=== PATIENT | female | born 1980 | race African-American/Black ===

== ENCOUNTER 2016-09-12 10:20 | Emergency (ER) | payer MEDICAID, MEDICARE ==
[~2016-09-12] VITALS: Ht 180.3 cm; Wt 108.0 kg
[~2016-09-12 10:20] MED LIST: ACHD5005 PO; ALPR.25T PO; ALPR1T PO; ALPR1TAB72 PO; ALPR2TAB37 PO; AMOX500C2 PO; ARIP20TA PO; BCP; BUTA-234 PO; BUTA1CAP; CIPR500T78 PO; CLAR-19 PO; CPR500T PO; CYAN100053 IJ; DCS100C PO; DIAZ5TAB3 PO; DICY10CA26 PO; DIPH1TAB25 PO; DOXY100C2 PO; ESTR1TAB24 PO; FERR-57 PO; FESO8TAB PO; FLUC200T45 PO; FURO20TA4 PO; GBPN300C PO; HYDR-1231 PO; HYDR-2890 PO; HYDR-757 PO; HYDR1TAB PO; HYOS0.1217 PO; IBP600T1 PO; IBUP800T26 PO; IMITREX; LRT10T; METH80VI IJ; METO10TA3 PO; METR500T PO; MILN50TA6 PO; MULT-608 PO; NAPR-243 PO; NAPR1TAB21 PO; NF-ESOM40C PO; NFR150C PO; NITR-65 PO; OMEP40CA36 PO; ONDA8TAB9 PO; ONDAN4ODT PO; ONDN4T PO; ORTHO TRICYCLIN; PANT20TA PO; PARO20TA57 PO; PARO40TA2 PO; PARO40TA47 PO; PNT40TEC; POTA10CA43 PO; PREG200C PO; PREG75CA PO; PRM25T PO; PROP1TAB77 PO; PRX10T PO; SPRN25T PO; SULF1TAB23 PO; SULF1TAB38 PO; SUMA100T2 PO; TIZA4TAB55 PO; TRAM50TA2 PO; TRM50T PO; VITA100C15 PO; [UNRECOGNIZED DRUG - OTHER] PO; [UNRECOGNIZED DRUG - OTHER] PO
[2016-09-12] MEDS ORDERED: NAPR500T PO (10:58)
[2016-09-12] MEDS ORDERED: Flexeril PO (10:58)
--- NOTE | 2016-09-12 10:58 | ED Neck-Back Pain/Injury ---
General Stated Complaint: NECK PAIN/SWELLING Source of Information: Patient Exam Limitations: No Limitations History of Present Illness Time Seen by Provider: 10:55 Initial Comments Left neck pain that radiates down the left arm. She awakened this morning with this pain and denies trauma. Denies any history of this. Denies fevers or chills. She reports it to be swollen on the left side. States that she cannot take strong pain medication because of her fibromyalgia and chronic fatigue syndrome. Location: C-Spine Severity: Moderate Allergies and Home Medications Allergies Coded Allergies: meperidine (Verified Adverse Reaction, Mild, NAUSEA, 09/13/07) morphine (Verified Adverse Reaction, Mild, NAUSEA, 09/13/07) Uncoded Allergies: STEROID PILLS (Allergy, Unknown, 11/15/13) Home Medications #20 5 MG PO TID PRN PRN PAIN Prescribed by: RAFA ALVARENGA on 09/12/16 1058 Cyanocobalamin 1,000 Mcg/Ml Vial 1,000 MCG IJ WEEKLY (Reported) Furosemide 20 Mg Tablet 20 MG PO DAILY (Reported) Methylprednisolone Acetate 80 Mg/Ml Vial 160 MG IJ MONTHLY (Reported) Naproxen 500 Mg Tablet #20 500 MG PO BID PRN PRN PAIN Prescribed by: RAFA ALVARENGA on 09/12/16 1058 Potassium Chloride 10 Meq Capsule.sa 10 MEQ PO DAILY WITH FOOD (Reported) Spironolactone 25 Mg Tab 25 MG PO DAILY (Reported) Constitutional: see HPI EENTM: see HPI Respiratory: no symptoms reported Cardiovascular: no symptoms reported Genitourinary: no symptoms reported Musculoskeletal: see HPI neck pain Skin: no symptoms reported Psychiatric/Neurological: No Symptoms Reported Past Znpzarv-Jnvqtm-Tczwvm Hx Patient Social History Recent Foreign Travel: No Contact w/Someone Who Travel: No Seasonal Allergies Seasonal Allergies: Yes Surgeries HX Surgeries: Yes (TEAR REPAIR AFTER VAG , DX LAP FOR ENDOMETRIOSIS/ OVARIAN CYSTS,EGD) Surgeries: Abdominal, Appendectomy, Gallbladder, Hysterectomy, Oophorectomy Respiratory Hx Respiratory Disorders: No Cardiovascular Hx Cardiac Disorders: No Neurological Hx Neurological Disorders: Yes Neurological Disorders: Headaches /Migraines 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 System Hx 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 Disorders: Yes Sexually Transmitted Disease: No Female 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 Disorders: 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, 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 Genitourinary Hx Genitourinary Disorders: No Gastrointestinal Hx Gastrointestinal Disorders: Yes (CHRONIC NAUSEA) Gastrointestinal Disorders: Gastroesophageal Reflux, Diverticulosis Musculoskeletal Hx Musculoskeletal Disorders: Yes (CHRONIC FATIGUE SYNDROME, CHRONIC NECK PAIN AND GENERALIZED PAIN ) Musculoskeletal Disorders: Fibromyalgia, Chronic Back Pain Endocrine Hx Endocrine Disorders: Yes (STATES "HYPOGLYCEMIA") HEENT HX ENT Disorders: No Cancer Hx Cancer: No Psychosocial Hx Psychiatric Problems: Yes Behavioral Health Disorders: Anxiety, Depression Integumentary HX Skin/Integumentary Disorder: No Blood Transfusions Hx Blood Disorders: No Family Medical History Significant Family History: No Pertinent Family Hx Family Medial History: Cancer Cataract Family history: Allergy Family history: Arthritis Family history: Asthma Family history: Breast disease Family history: Diabetes mellitus Family history: Hypertension Family history: Osteoporosis Family history: Thyroid disorder Headache Heart disease Hypercholesterolemia Psychotic disorder Seizure disorder No Family History of: Abdominal aortic aneurysm [place]'s disease Alcoholism Aphasia Cancer of colon Chest pain Congenital heart disease Congestive heart failure Cystic fibrosis Dementia Dysphagia Family history: Alzheimer's disease Family history: Cardiovascular disease Family history: Coronary thrombosis Family history: Gastrointestinal disease Family history: Glaucoma Hearing loss Hereditary disease History of - anemia History of - disorder History of - respiratory disease History of drug abuse Human immunodeficiency virus (HIV) seropositivity Infertile Kidney disease Malignant neoplasm of lung Myocardial infarction Parkinson's disease Prostate cancer Stroke Tuberculosis Visual impairment Physical Exam Vital Signs Vital Sign - Last 12Hours 09/12/16 10:48 Temp 98.0 Pulse 77 Resp 18 B/P 143/95 Pulse Ox 98 Capillary Refill : General Appearance: No Apparent Distress WD/WN Other (tearful, crying) HEENT: PERRL/EOMI TMs Normal Neck: Full Range of Motion Normal Inspection Other (there is no swelling to the neck) Respiratory: No Accessory Muscle Use No Respiratory Distress Gastrointestinal: Normal Bowel Sounds Non Tender Soft Extremity: Normal Capillary Refill Normal Inspection Neurologic/Psychiatric: Alert Oriented x3 No Motor/Sensory Deficits Skin: Normal Color Warm/Dry Progress/Results/Core Measures Results/Orders My Orders Orders-RAFA ALVARENGA APRN Ketorolac Injection (Toradol Injection) (09/12/16 11:00) Orphenadrine Injection (Norflex Injectio (09/12/16 11:00) Ct Head/Cervical Spine Wo (09/12/16 11:12) Medications Given in ED Current Medications Medications Dose Ordered Sig/Cali Route Start Time Stop Time Status Last Admin Dose Admin Ketorolac Tromethamine 60 mg ONCE ONCE IM 09/12/16 11:00 09/12/16 11:01 DC 09/12/16 11:03 60 MG Orphenadrine Citrate 60 mg ONCE ONCE IM 09/12/16 11:00 09/12/16 11:01 DC 09/12/16 11:03 60 MG Vital Signs/I&O Vital Sign - Last 12Hours 09/12/16 10:48 Temp 98.0 Pulse 77 Resp 18 B/P 143/95 Pulse Ox 98 Diagnostic Imaging Diagonstic Imaging: CT Comments NAME: BALDO EDWARDS [facility] REC#: [id number] PT STATUS: REG ER : 1980 PHYSICIAN: RAFA ALVARENGA APRN ADMIT DATE: 09/12/16/ER Draft Date of Exam:09/12/16 CT HEAD/CERVICAL SPINE WO CLINICAL INDICATION: Patient woke up this morning with swelling and pain in neck and left hand numbness. EXAM: Head CT without IV contrast. Axial CT scan of the cervical spine with sagittal and coronal reformations. COMPARISON: Head CT with and without IV contrast dated 11/15/2013. CT scan of the cervical, thoracic, and lumbar spine performed with IV contrast dated 11/16/2015. FINDINGS: Head CT: There is no evidence of acute cerebral infarct, intracranial hemorrhage, or gross mass effect. There is normal dukes-white matter distinction. The brain parenchymal volume appears appropriate for patient's age. There is no significant midline shift or herniation. There is no evidence of hydrocephalus. The basal cisterns are unremarkable. The skull, extracranial soft tissue, and orbits are unremarkable. The paranasal sinuses are unremarkable. Cervical spine: There is straightening of the cervical spine posture which is nonspecific. Otherwise cervical spine is unremarkable with no acute fracture or dislocation. Is no significant central spinal canal or neural foramen narrowing. There is slight increase prominence of the soft tissue involving the posterior nasopharynx, oropharynx, supraglottic larynx, and oropharyngeal soft tissue. This has increased compared to the prior CT scan. The remainder of the neck soft tissue structures are unremarkable. IMPRESSION: 1: There is nonspecific progression of the mild prominence of the soft tissue involving the nasopharynx, oropharynx, and laryngeal soft tissue with mild narrowing of the airway. Clinical correlation for infectious or inflammatory process is suggested. 2: Unremarkable CT scan of the brain. 3: There is mild straightening of the cervical spine posture. Otherwise cervical spine is unremarkable. Dictated on workstation # [id number] Dict: 09/12/16 1146 Trans: 09/12/16 1204 [facility] [id number] Interpreted by: GALO FAROOQ MD Electronically signed by: Departure Communication Progress Notes In regards to the CT scan she does report that she's had a sore throat and runny nose for the past few days. Impression Impression: Primary Impression: Torticollis Additional Impression: chronic pain Disposition: 01 HOME, SELF-CARE Condition: Stable Departure-Patient Inst. Decision time for Depature: 10:57 Referrals: NO,LOCAL PHYSICIAN (PCP/Family) Primary Care Physician Patient Instructions: Torticollis, Adult Add. Discharge Instructions: 1. Take the medication as prescribed 2. Warm compresses to her neck 3. See your doctor later this week Scripts Amoxicillin 500 Mg [id number] Mg PO TID #21 CAP Prov:RAFA ALVARENGA APRN 09/12/16 [Flexeril] No Conflict Check5 Mg PO TID PRN PAIN #20 Prov:RAFA ALVARENGA APRN 09/12/16 Naproxen (Naprosyn)500 Mg [id number] Mg PO BID PRN PAIN #20 TAB Prov:RAFA ALVARENGA APRN 09/12/16 RAFA ALVARENGA APRN Sep 12, 2016 10:58
[2016-09-12] MEDS ORDERED: KETOROLAC 60 MG/2 ML VIAL IM ONE (11:00)
[2016-09-12] MEDS ORDERED: ORPHENADRINE 60 MG/2 ML (NORFLEX) AMP IM ONE (11:00)
--- NOTE | 2016-09-12 12:05 | Diagnostic Imaging Report ---
CLINICAL INDICATION: Patient woke up this morning with swelling and pain in neck and left hand numbness. EXAM: Head CT without IV contrast. Axial CT scan of the cervical spine with sagittal and coronal reformations. COMPARISON: Head CT with and without IV contrast dated 11/15/2013. CT scan of the cervical, thoracic, and lumbar spine performed with IV contrast dated 11/16/2015. FINDINGS: Head CT: There is no evidence of acute cerebral infarct, intracranial hemorrhage, or gross mass effect. There is normal dukes-white matter distinction. The brain parenchymal volume appears appropriate for patient's age. There is no significant midline shift or herniation. There is no evidence of hydrocephalus. The basal cisterns are unremarkable. The skull, extracranial soft tissue, and orbits are unremarkable. The paranasal sinuses are unremarkable. Cervical spine: There is straightening of the cervical spine posture which is nonspecific. Otherwise cervical spine is unremarkable with no acute fracture or dislocation. Is no significant central spinal canal or neural foramen narrowing. There is slight increase prominence of the soft tissue involving the posterior nasopharynx, oropharynx, supraglottic larynx, and oropharyngeal soft tissue. This has increased compared to the prior CT scan. The remainder of the neck soft tissue structures are unremarkable. IMPRESSION: 1: There is nonspecific progression of the mild prominence of the soft tissue involving the nasopharynx, oropharynx, and laryngeal soft tissue with mild narrowing of the airway. Clinical correlation for infectious or inflammatory process is suggested. 2: Unremarkable CT scan of the brain. 3: There is mild straightening of the cervical spine posture. Otherwise cervical spine is unremarkable. Dictated by: Dictated on workstation # [id number]
[2016-09-12] MEDS ORDERED: AMOX500C2 PO (12:10)
[2016-09-12 12:18] VITALS: BP 136/92
== END 2016-09-12 12:18 | disposition home or self-care (01) ==
LOC: EDUNIT# 10:20 → ER 10:23
DX: M43.6 Torticollis (principal); M79.7 Fibromyalgia; G89.29 Other chronic pain
CPT/HCPCS: 70450; 72125; 96372; 99282

== ENCOUNTER 2016-11-28 20:11 | Emergency (ER) | payer MEDICARE ==
[~2016-11-28] VITALS: Ht 180.3 cm; Wt 108.9 kg
[~2016-11-28 20:11] MED LIST changes: +Flexeril PO; +NAPR500T PO
[2016-11-28] MEDS ORDERED: ASPIRIN 81 MG CHEW (CHILDREN'S ASA) PO ONE (20:15)
[2016-11-28 20:27] LABS: BASOPHILS # (AUTO) 0.1 10^3/uL (0.0-0.1); BASOPHILS % (AUTO) 1 % (0-10); EOSINOPHILS # (AUTO) 0.2 10^3/uL (0.0-0.3); EOSINOPHILS % (AUTO) 2 % (0-10); LYMPHOCYTES # (AUTO) 2.9 X 10^3 (1.0-4.0); LYMPHOCYTES % (AUTO) 32 % (12-44); MEAN CORPUSCULAR HEMOGLOBIN 28 PG (25-34); MEAN CORPUSCULAR HGB CONC 34 G/DL (32-36); MEAN CORPUSCULAR VOLUME 82 FL (80-99); MEAN PLATELET VOLUME 9.9 FL (7.4-10.4); MONOCYTES # (AUTO) 0.7 X 10^3 (0.0-1.0); MONOCYTES % (AUTO) 7 % (0-12); NEUTROPHILS # (AUTO) 5.3 X 10^3 (1.8-7.8); NEUTROPHILS % (AUTO) 58 % (42-75); PLATELET COUNT 354 10^3/uL (130-400); RED BLOOD COUNT 4.73 10^6/uL (4.35-5.85); RED CELL DISTRIBUTION WIDTH 15.7 % (10.0-14.5); WHITE BLOOD COUNT 9.2 10^3/uL (4.3-11.0)
--- NOTE | 2016-11-28 20:34 | ED Chest Pain ---
General Chief Complaint: Chest Pain Stated Complaint: CP Nursing Triage Note: PT AMB TO ED C/O CP RADIATION TO RIGHT SHOULDER FOR 2 HRS. PT WHISPERS HER VOICE NEAR UNABLE TO HEAR. Nursing Sepsis Screen: No Definite Risk Source: patient Exam Limitations: no limitations History of Present Illness Time seen by provider: 20:32 Initial Comments To ER with sudden onset right sided chest pain that began 2 hours prior to arrival while sitting on her front porch. She feels very anxious. Denies any shortness of breath. Timing/Duration: 1-3 hours Severity/Quality: moderate Activities at Onset: none ASA po INVESTIGATOR FRAUD: No NTG SL INVESTIGATOR FRAUD: No Allergies and Home Medications Allergies Coded Allergies: meperidine (Verified Adverse Reaction, Mild, NAUSEA, 09/13/07) morphine (Verified Adverse Reaction, Mild, NAUSEA, 09/13/07) Uncoded Allergies: STEROID PILLS (Allergy, Unknown, 11/15/13) Home Medications Amoxicillin 500 Mg Capsule, 500 MG PO TID, #21 Prescribed by: RAFA ALVARENGA on 09/12/16 1210 Cyanocobalamin 1,000 Mcg/Ml Vial, 1,000 MCG IJ WEEKLY, (Reported) Furosemide 20 Mg Tablet, 20 MG PO DAILY, (Reported) Methylprednisolone Acetate 80 Mg/Ml Vial, 160 MG IJ MONTHLY, (Reported) Naproxen 500 Mg Tablet, 500 MG PO BID PRN for PAIN, #20 Prescribed by: RAFA ALVARENGA on 09/12/16 1058 Potassium Chloride 10 Meq Capsule.sa, 10 MEQ PO DAILY WITH FOOD, (Reported) Spironolactone 25 Mg Tab, 25 MG PO DAILY, (Reported) [Flexeril] , 5 MG PO TID PRN for PAIN, #20 Prescribed by: RAFA ALVARENGA on 09/12/16 1058 Review of Systems Constitutional: see HPI EENTM: No Symptoms Reported Respiratory: No Symptoms Reported, Denies Orthopnea, Denies Shortness of Air, Denies SOA With Exertion, Denies SOA at Rest Cardiovascular: See HPI, Chest Pain Gastrointestinal: No Symptoms Reported Genitourinary: No Symptoms Reported Musculoskeletal: no symptoms reported Skin: no symptoms reported Psychiatric/Neurological: No Symptoms Reported Endocrine: No Symptoms Reported Past Rqqmtql-Zgqwmb-Jkwdhs Hx Patient Social History Alcohol Use: Denies Use Recreational Drug Use: No Smoking Status: Current Everyday Smoker Type Used: Cigarettes Recent Foreign Travel: No Contact w/Someone Who Travel: No Recent Infectious Disease Expo: No Recent Hopitalizations: No Seasonal Allergies Seasonal Allergies: Yes Surgeries HX Surgeries: Yes (TEAR REPAIR AFTER VAG , DX LAP FOR ENDOMETRIOSIS/ OVARIAN CYSTS,EGD) Surgeries: Abdominal, Appendectomy, Gallbladder, Hysterectomy, Oophorectomy Respiratory Hx Respiratory Disorders: No Cardiovascular Hx Cardiac Disorders: No Neurological Hx Neurological Disorders: Yes (CHRONIC FATIGUE SYNDROME, FIBROMYALGIA) Neurological Disorders: Headaches /Migraines 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 System Hx 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 Disorders: Yes Sexually Transmitted Disease: No Female 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 Disorders: 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, 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 Genitourinary Hx Genitourinary Disorders: No Gastrointestinal Hx Gastrointestinal Disorders: Yes (CHRONIC NAUSEA) Gastrointestinal Disorders: Gastroesophageal Reflux, Diverticulosis Musculoskeletal Hx Musculoskeletal Disorders: Yes (CHRONIC FATIGUE SYNDROME, CHRONIC NECK PAIN AND GENERALIZED PAIN ) Musculoskeletal Disorders: Fibromyalgia, Chronic Back Pain Endocrine Hx Endocrine Disorders: Yes (STATES "HYPOGLYCEMIA") HEENT HX ENT Disorders: No Cancer Hx Cancer: No Psychosocial Hx Psychiatric Problems: Yes Behavioral Health Disorders: Anxiety, Depression Integumentary HX Skin/Integumentary Disorder: No Blood Transfusions Hx Blood Disorders: No Family Medical History Significant Family History: No Pertinent Family Hx Family Medial History: Cancer Cataract Family history: Allergy Family history: Arthritis Family history: Asthma Family history: Breast disease Family history: Diabetes mellitus Family history: Hypertension Family history: Osteoporosis Family history: Thyroid disorder Headache Heart disease Hypercholesterolemia Psychotic disorder Seizure disorder No Family History of: Abdominal aortic aneurysm [place]'s disease Alcoholism Aphasia Cancer of colon Chest pain Congenital heart disease Congestive heart failure Cystic fibrosis Dementia Dysphagia Family history: Alzheimer's disease Family history: Cardiovascular disease Family history: Coronary thrombosis Family history: Gastrointestinal disease Family history: Glaucoma Hearing loss Hereditary disease History of - anemia History of - disorder History of - respiratory disease History of drug abuse Human immunodeficiency virus (HIV) seropositivity Infertile Kidney disease Malignant neoplasm of lung Myocardial infarction Parkinson's disease Prostate cancer Stroke Tuberculosis Visual impairment Physical Exam Vital Signs Vital Sign - Last 12Hours Capillary Refill : Less Than 3 Seconds General Appearance: No Apparent Distress, WD/WN HEENT: PERRL/EOMI, TMs Normal Neck: Full Range of Motion, Normal Inspection Respiratory: Lungs Clear, Normal Breath Sounds, No Accessory Muscle Use, No Respiratory Distress Cardiovascular: Regular Rate, Rhythm, Normal Peripheral Pulses Gastrointestinal: Normal Bowel Sounds, Non Tender, Soft Extremity: Normal Capillary Refill, Normal Inspection Neurologic/Psychiatric: Alert, Oriented x3, No Motor/Sensory Deficits Skin: Normal Color, Warm/Dry Other comments Patient keeps her eyes closed during her conversation with me and speaks very softly. Progress/Results/Core Measures Results/Orders Lab Results Laboratory Tests Test 11/28/16 20:15 Range/Units White Blood Count 9.2 4.3-11.0 10^3/uL Red Blood Count 4.73 4.35-5.85 10^6/uL Hemoglobin 13.0 11.5-16.0 G/DL Hematocrit 39 35-52 % Mean Corpuscular Volume 82 80-99 FL Mean Corpuscular Hemoglobin 28 25-34 PG Mean Corpuscular Hemoglobin Concent 34 32-36 G/DL Red Cell Distribution Width 15.7 H 10.0-14.5 % Platelet Count 354 130-400 10^3/uL Mean Platelet Volume 9.9 7.4-10.4 FL Neutrophils (%) (Auto) 58 42-75 % Lymphocytes (%) (Auto) 32 12-44 % Monocytes (%) (Auto) 7 0-12 % Eosinophils (%) (Auto) 2 0-10 % Basophils (%) (Auto) 1 0-10 % Neutrophils # (Auto) 5.3 1.8-7.8 X 10^3 Lymphocytes # (Auto) 2.9 1.0-4.0 X 10^3 Monocytes # (Auto) 0.7 0.0-1.0 X 10^3 Eosinophils # (Auto) 0.2 0.0-0.3 10^3/uL Basophils # (Auto) 0.1 0.0-0.1 10^3/uL Prothrombin Time 13.2 12.2-14.7 SEC INR Comment 1.0 0.8-1.4 Activated Partial Thromboplast Time 30 24-35 SEC Sodium Level 141 135-145 MMOL/L Potassium Level 3.4 L 3.6-5.0 MMOL/L Chloride Level 106 98-107 MMOL/L Carbon Dioxide Level 26 21-32 MMOL/L Anion Gap 9 5-14 MMOL/L Blood Urea Nitrogen 15 7-18 MG/DL Creatinine 0.88 0.60-1.30 MG/DL Estimat Glomerular Filtration Rate > 60 BUN/Creatinine Ratio 17 Glucose Level 71 70-105 MG/DL Calcium Level 9.1 8.5-10.1 MG/DL Magnesium Level 2.2 1.8-2.4 MG/DL Total Bilirubin 0.3 0.1-1.0 MG/DL Aspartate Amino Transf (AST/SGOT) 23 5-34 U/L Alanine Aminotransferase (ALT/SGPT) 22 0-55 U/L Alkaline Phosphatase 114 40-136 U/L Myoglobin 59.8 10.0-92.0 NG/ML Troponin I < 0.30 <0.30 NG/ML Total Protein 7.3 6.4-8.2 G/DL Albumin 4.0 3.2-4.5 G/DL My Orders Orders - RAFA ALVARENGA WASHROOM ATTENDANT Cbc With Automated Diff (11/28/16 20:15) Magnesium (11/28/16 20:15) Chest 1 View, Ap/Pa Only (11/28/16 20:15) Ekg Tracing (11/28/16 20:15) Cardiac Profile 1 (11/28/16 20:15) Comprehensive Metabolic Panel (11/28/16 20:15) Myoglobin Serum (11/28/16 20:15) Protime With Inr (11/28/16 20:15) Partial Thromboplastin Time (11/28/16 20:15) O2 (11/28/16 20:15) Monitor-Rhythm Ecg Trace Only (11/28/16 20:15) Lipid Panel (11/29/16 06:00) Aspirin Chewable Tablet (Baby Aspirin Ch (11/28/16 20:15) Saline Lock/Iv-Start (11/28/16 20:15) Ct Angio Chest W (11/28/16 20:31) Ketorolac Injection (Toradol Injection) (11/28/16 20:45) Ns Iv 1000 Ml (Sodium Chloride 0.9%) (11/28/16 20:45) Iohexol Injection (Omnipaque 350 Mg/Ml 1 (11/28/16 20:45) Ns (Ivpb) (Sodium Chloride 0.9% Ivpb Bag (11/28/16 20:45) Medications Given in ED Current Medications Medications Dose Ordered Sig/Cali Route Start Time Stop Time Status Last Admin Dose Admin Aspirin 324 mg ONCE ONCE PO 11/28/16 20:15 11/28/16 20:16 DC 11/28/16 20:33 324 MG Iohexol 150 ml ONCE ONCE IV 11/28/16 20:45 11/28/16 20:46 DC 11/28/16 20:45 125 ML Ketorolac Tromethamine 30 mg ONCE ONCE IVP 11/28/16 20:45 11/28/16 20:46 DC 11/28/16 20:36 30 MG Sodium Chloride 100 ml ONCE ONCE IV 11/28/16 20:45 11/28/16 20:46 DC 11/28/16 20:46 80 ML Vital Signs/I&O Vital Sign - Last 12Hours 11/28/16 11/28/16 11/28/16 11/28/16 20:13 20:13 20:33 20:36 Temp 97.0 97.0 97.0 Pulse 77 Resp 20 B/P (MAP) 134/82 Pulse Ox 99 O2 Delivery Room Air Room Air Blood Pressure Mean: 99 Diagnostic Imaging Diagonstic Imaging: Xray Comments NAME: BALDO EDWARDS MED REC#: [id number] PT STATUS: REG ER : 1980 PHYSICIAN: RAFA ALVARENGA WASHROOM ATTENDANT ADMIT DATE: 11/28/16/ER Draft Date of Exam:11/28/16 CT ANGIO CHEST W PROCEDURE: CT angiography of the chest with contrast. TECHNIQUE: Multiple contiguous axial images were obtained through the chest after uneventful bolus administration of intravenous contrast. Reconstructed CTA MIP acquisitions were also performed. INDICATION: Chest pain. Right shoulder pain The lungs are clear. There is no effusion or pneumothorax. There is no mediastinal mass. There is no aortic dissection. There is no pulmonary embolus. IMPRESSION: Normal CT angiography of the chest. Dictated on workstation # [id number] Dict: 11/28/162109 Trans: 11/28/162111 [place] [id number] Interpreted by: BIMAL OSEI MD Electronically signed by: Departure Impression Impression: Primary Impression: Chest pain Additional Impression: Anxiety Disposition: 01 HOME, SELF-CARE Condition: Stable Departure-Patient Inst. Decision time for Depature: 21:15 Referrals: NO,LOCAL PHYSICIAN (PCP/Family) Primary Care Physician Patient Instructions: Chest Pain That Is Not Caused by the Heart (DC) Add. Discharge Instructions: 1. Return to ER for any concerns 2. Follow-up with your doctor next week 3. All discharge instructions reviewed with patient and/or family. Voiced understanding. RAFA ALVARENGA APRN Nov 28, 2016 20:33
[2016-11-28 20:37] LABS: PROTHROMBIN TIME PATIENT 13.2 SEC (12.2-14.7)
[2016-11-28 20:44] LABS: ALANINE AMINOTRANSFERASE 22 U/L (0-55); ANION GAP 9 MMOL/L (5-14); ASPARTATE AMINO TRANSFERASE 23 U/L (5-34); BILIRUBIN,TOTAL 0.3 MG/DL (0.1-1.0); BLOOD UREA NITROGEN 15 MG/DL (7-18); BUN/CREATININE RATIO 17; CALCIUM 9.1 MG/DL (8.5-10.1); CARBON DIOXIDE 26 MMOL/L (21-32); CHLORIDE 106 MMOL/L (98-107); CREATININE SERUM 0.88 MG/DL (0.60-1.30); GFR ESTIMATED > 60; GLUCOSE 71 MG/DL (70-105); MAGNESIUM 2.2 MG/DL (1.8-2.4); POTASSIUM 3.4 MMOL/L (3.6-5.0); SODIUM 141 MMOL/L (135-145); TOTAL PROTEIN 7.3 G/DL (6.4-8.2)
[2016-11-28] MEDS ORDERED: NS IV 1000 ML 1,000 ML IV SCH (20:45)
[2016-11-28] MEDS ORDERED: NS 100 ML (IVPB) BAG IV ONE (20:45)
[2016-11-28] MEDS ORDERED: KETOROLAC 30 MG/ML VIAL IVP ONE (20:45)
[2016-11-28] MEDS ORDERED: IOHEXOL 350 MG/ML 150 ML (OMNIPAQUE 350) VIAL IV ONE (20:45)
--- NOTE | 2016-11-28 20:50 | Diagnostic Imaging Report ---
INDICATION: Chest pain, short of air. EXAMINATION: Single view of the chest was obtained. FINDINGS: Normal heart size and vascularity. The lungs are clear. There is no effusion or pneumothorax. There is no bony abnormality. IMPRESSION: No acute abnormality is seen with no change from 12/26/14. Dictated by: Dictated on workstation # [id number]
[2016-11-28 20:51] LABS: MYOGLOBIN SERUM 59.8 NG/ML (10.0-92.0)
--- NOTE | 2016-11-28 21:13 | Diagnostic Imaging Report ---
PROCEDURE: CT angiography of the chest with contrast. TECHNIQUE: Multiple contiguous axial images were obtained through the chest after uneventful bolus administration of intravenous contrast. Reconstructed CTA MIP acquisitions were also performed. INDICATION: Chest pain. Right shoulder pain The lungs are clear. There is no effusion or pneumothorax. There is no mediastinal mass. There is no aortic dissection. There is no pulmonary embolus. IMPRESSION: Normal CT angiography of the chest. Dictated by: Dictated on workstation # [id number]
[2016-11-28 21:21] VITALS: BP 113/74
== END 2016-11-28 21:20 | disposition home or self-care (01) ==
LOC: EDUNIT# 20:11 → ER 20:13
DX: R07.9 Chest pain, unspecified (principal); F17.210 Nicotine dependence, cigarettes, uncomplicated; Z79.899 Other long term (current) drug therapy
CPT/HCPCS: 36415; 71010; 71275; 80053; 83735; 83874; 84484; 85025; 85610; 85730; 93005; 93041; 96374

== ENCOUNTER 2016-12-02 13:49 | Emergency (ER) | payer MEDICARE ==
[~2016-12-02] VITALS: Ht 180.3 cm; Wt 108.9 kg
[2016-12-02] MEDS ORDERED: KETOROLAC 30 MG/ML VIAL IVP ONE (14:30)
[2016-12-02 14:53] LABS: BASOPHILS # (AUTO) 0.1 10^3/uL (0.0-0.1); BASOPHILS % (AUTO) 1 % (0-10); EOSINOPHILS # (AUTO) 0.1 10^3/uL (0.0-0.3); EOSINOPHILS % (AUTO) 2 % (0-10); LYMPHOCYTES # (AUTO) 2.5 X 10^3 (1.0-4.0); LYMPHOCYTES % (AUTO) 31 % (12-44); MEAN CORPUSCULAR HEMOGLOBIN 27 PG (25-34); MEAN CORPUSCULAR HGB CONC 33 G/DL (32-36); MEAN CORPUSCULAR VOLUME 81 FL (80-99); MEAN PLATELET VOLUME 9.9 FL (7.4-10.4); MONOCYTES # (AUTO) 0.5 X 10^3 (0.0-1.0); MONOCYTES % (AUTO) 6 % (0-12); NEUTROPHILS # (AUTO) 4.8 X 10^3 (1.8-7.8); NEUTROPHILS % (AUTO) 60 % (42-75); PLATELET COUNT 346 10^3/uL (130-400); RED BLOOD COUNT 5.17 10^6/uL (4.35-5.85); RED CELL DISTRIBUTION WIDTH 15.7 % (10.0-14.5)
[2016-12-02 15:10] LABS: ERYTHROCYTE SEDIMENTATION RATE 19 MM/HR (0-20)
[2016-12-02 15:21] LABS: ALANINE AMINOTRANSFERASE 27 U/L (0-55); ALBUMIN 4.3 G/DL (3.2-4.5); ANION GAP 11 MMOL/L (5-14); ASPARTATE AMINO TRANSFERASE 28 U/L (5-34); BILIRUBIN,TOTAL 0.3 MG/DL (0.1-1.0); BLOOD UREA NITROGEN 13 MG/DL (7-18); BUN/CREATININE RATIO 14; CARBON DIOXIDE 26 MMOL/L (21-32); CHLORIDE 105 MMOL/L (98-107); CREATINE KINASE 529 U/L (29-168); CREATININE SERUM 0.94 MG/DL (0.60-1.30); GFR ESTIMATED > 60; GLUCOSE 88 MG/DL (70-105); POTASSIUM 3.6 MMOL/L (3.6-5.0); SODIUM 142 MMOL/L (135-145); hs C REACTIVE PROTEIN 1.88 MG/DL (0.00-0.50)
[2016-12-02] MEDS ORDERED: NS IV 1000 ML 1,000 ML IV ONE ×2 (15:44)
--- NOTE | 2016-12-02 19:08 | ED General ---
General Chief Complaint: Head/Cervical Problems Stated Complaint: BACK/NECK PAIN Nursing Triage Note: PT STATES LT NECK PAIN AND RT GENERAL BODY PAIN THAT STARTED ABOUT 1 WEEK AGO. DENIES ANY TYPE OF TRAUMA, UNKNOWN CAUSE. Nursing Sepsis Screen: No Definite Risk Source of Information: Patient Exam Limitations: No Limitations History of Present Illness Time Seen by Provider: 14:13 Initial Comments This 36-year-old woman presents to the emergency room with pain in her neck and paresthesias in the right arm and leg. Her right hip is also hurting. She has had symptoms for about 2 weeks now. She went to the walk-in clinic at [facility] recently. She was instructed to keep taking naproxen. She reports Flexeril and Lyrica were recently added to her regimen. She complains of significant chronic pain related to fibromyalgia. Despite her complaint of paresthesia, no focal neurologic deficits were identified on exam. Allergies and Home Medications Allergies Coded Allergies: meperidine (Verified Adverse Reaction, Mild, NAUSEA, 09/13/07) morphine (Verified Adverse Reaction, Mild, NAUSEA, 09/13/07) Uncoded Allergies: STEROID PILLS (Allergy, Unknown, 11/15/13) Home Medications Amoxicillin 500 Mg Capsule, 500 MG PO TID, #21 Prescribed by: RAFA ALVARENGA on 09/12/16 1210 Cyanocobalamin 1,000 Mcg/Ml Vial, 1,000 MCG IJ WEEKLY, (Reported) Furosemide 20 Mg Tablet, 20 MG PO DAILY, (Reported) Methylprednisolone Acetate 80 Mg/Ml Vial, 160 MG IJ MONTHLY, (Reported) Naproxen 500 Mg Tablet, 500 MG PO BID PRN for PAIN, #20 Prescribed by: RAFA ALVARENGA on 09/12/16 1058 [Flexeril] , 5 MG PO TID PRN for PAIN, #20 Prescribed by: RAFA ALVARENGA on 09/12/16 1058 Constitutional: no symptoms reported EENTM: no symptoms reported Respiratory: no symptoms reported Cardiovascular: no symptoms reported Gastrointestinal: no symptoms reported Genitourinary: no symptoms reported Musculoskeletal: see HPI Skin: no symptoms reported Psychiatric/Neurological: See HPI Hematologic/Lymphatic: No Symptoms Reported Immunological/Allergic: no symptoms reported Past Tbchuuz-Ymfxvm-Cspppa Hx Patient Social History Alcohol Use: Denies Use Recreational Drug Use: No Smoking Status: Current Everyday Smoker Type Used: Cigarettes Recent Foreign Travel: No Contact w/Someone Who Travel: No Recent Infectious Disease Expo: No Recent Hopitalizations: No Immunizations Up To Date Date of Influenza Vaccine: May 15, 2016 Seasonal Allergies Seasonal Allergies: Yes Surgeries HX Surgeries: Yes (TEAR REPAIR AFTER VAG , DX LAP FOR ENDOMETRIOSIS/ OVARIAN CYSTS,EGD) Surgeries: Abdominal, Appendectomy, Gallbladder, Hysterectomy, Oophorectomy Respiratory Hx Respiratory Disorders: No Cardiovascular Hx Cardiac Disorders: No Neurological Hx Neurological Disorders: Yes (CHRONIC FATIGUE SYNDROME, FIBROMYALGIA) Neurological Disorders: Headaches /Migraines 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 System : No Hx 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 Disorders: Yes Sexually Transmitted Disease: No Female 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 Disorders: 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, 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 Genitourinary Hx Genitourinary Disorders: No Gastrointestinal Hx Gastrointestinal Disorders: Yes (CHRONIC NAUSEA) Gastrointestinal Disorders: Gastroesophageal Reflux, Diverticulosis Musculoskeletal Hx Musculoskeletal Disorders: Yes (CHRONIC FATIGUE SYNDROME, CHRONIC NECK PAIN AND GENERALIZED PAIN ) Musculoskeletal Disorders: Fibromyalgia, Chronic Back Pain Endocrine Hx Endocrine Disorders: Yes (STATES "HYPOGLYCEMIA") HEENT HX ENT Disorders: No Cancer Hx Cancer: No Psychosocial Hx Psychiatric Problems: Yes Behavioral Health Disorders: Anxiety, Depression Integumentary HX Skin/Integumentary Disorder: No Blood Transfusions Hx Blood Disorders: No Family Medical History Significant Family History: No Pertinent Family Hx Family Medial History: Cancer Cataract Family history: Allergy Family history: Arthritis Family history: Asthma Family history: Breast disease Family history: Diabetes mellitus Family history: Hypertension Family history: Osteoporosis Family history: Thyroid disorder Headache Heart disease Hypercholesterolemia Psychotic disorder Seizure disorder No Family History of: Abdominal aortic aneurysm [place]'s disease Alcoholism Aphasia Cancer of colon Chest pain Congenital heart disease Congestive heart failure Cystic fibrosis Dementia Dysphagia Family history: Alzheimer's disease Family history: Cardiovascular disease Family history: Coronary thrombosis Family history: Gastrointestinal disease Family history: Glaucoma Hearing loss Hereditary disease History of - anemia History of - disorder History of - respiratory disease History of drug abuse Human immunodeficiency virus (HIV) seropositivity Infertile Kidney disease Malignant neoplasm of lung Myocardial infarction Parkinson's disease Prostate cancer Stroke Tuberculosis Visual impairment Physical Exam Vital Signs Vital Sign - Last 12Hours 12/02/16 14:04 Temp 97.6 Pulse 85 Resp 20 B/P (MAP) 115/91 Pulse Ox 98 O2 Delivery Room Air Capillary Refill : Less Than 3 Seconds General Appearance: No Apparent Distress, WD/WN HEENT: PERRL/EOMI, Normal ENT Inspection Neck: Supple, Tender Lateral, Tender Midline, Other (generalized neck tenderness and muscle stiffness) Respiratory: Lungs Clear, Normal Breath Sounds, No Accessory Muscle Use, No Respiratory Distress Cardiovascular: Regular Rate, Rhythm, No Edema, No Murmur Gastrointestinal: Normal Bowel Sounds, Non Tender, Soft Extremity: Normal Inspection, No Pedal Edema Neurologic/Psychiatric: Alert, Oriented x3, No Motor/Sensory Deficits, Normal Mood/Affect, integration assistant II-XII Norm as Tested Skin: Normal Color, Warm/Dry Progress/Results/Core Measures Results/Orders Lab Results Laboratory Tests Test 12/02/16 14:45 Range/Units White Blood Count 8.0 4.3-11.0 10^3/uL Red Blood Count 5.17 4.35-5.85 10^6/uL Hemoglobin 14.0 11.5-16.0 G/DL Hematocrit 42 35-52 % Mean Corpuscular Volume 81 80-99 FL Mean Corpuscular Hemoglobin 27 25-34 PG Mean Corpuscular Hemoglobin Concent 33 32-36 G/DL Red Cell Distribution Width 15.7 H 10.0-14.5 % Platelet Count 346 130-400 10^3/uL Mean Platelet Volume 9.9 7.4-10.4 FL Neutrophils (%) (Auto) 60 42-75 % Lymphocytes (%) (Auto) 31 12-44 % Monocytes (%) (Auto) 6 0-12 % Eosinophils (%) (Auto) 2 0-10 % Basophils (%) (Auto) 1 0-10 % Neutrophils # (Auto) 4.8 1.8-7.8 X 10^3 Lymphocytes # (Auto) 2.5 1.0-4.0 X 10^3 Monocytes # (Auto) 0.5 0.0-1.0 X 10^3 Eosinophils # (Auto) 0.1 0.0-0.3 10^3/uL Basophils # (Auto) 0.1 0.0-0.1 10^3/uL Erythrocyte Sedimentation Rate 19 0-20 MM/HR Sodium Level 142 135-145 MMOL/L Potassium Level 3.6 3.6-5.0 MMOL/L Chloride Level 105 98-107 MMOL/L Carbon Dioxide Level 26 21-32 MMOL/L Anion Gap 11 5-14 MMOL/L Blood Urea Nitrogen 13 7-18 MG/DL Creatinine 0.94 0.60-1.30 MG/DL Estimat Glomerular Filtration Rate > 60 BUN/Creatinine Ratio 14 Glucose Level 88 70-105 MG/DL Calcium Level 10.0 8.5-10.1 MG/DL Total Bilirubin 0.3 0.1-1.0 MG/DL Aspartate Amino Transf (AST/SGOT) 28 5-34 U/L Alanine Aminotransferase (ALT/SGPT) 27 0-55 U/L Alkaline Phosphatase 129 40-136 U/L Total Creatine Kinase 529 H 29-168 U/L C-Reactive Protein High Sensitivity 1.88 H 0.00-0.50 MG/DL Total Protein 8.0 6.4-8.2 G/DL Albumin 4.3 3.2-4.5 G/DL My Orders Orders - JENNA RAGLAND MD Cbc With Automated Diff (12/02/16 14:25) Comprehensive Metabolic Panel (12/02/16 14:25) Creatine Kinase (12/02/16 14:25) Hs C Reactive Protein (12/02/16 14:25) Erythrocyte Sedimentation Rate (12/02/16 14:25) Ketorolac Injection (Toradol Injection) (12/02/16 14:30) Saline Lock/Iv-Start (12/02/16 15:44) Ns Iv 1000 Ml (Sodium Chloride 0.9%) (12/02/16 15:44) Ns Iv 1000 Ml (Sodium Chloride 0.9%) (12/02/16 15:44) Medications Given in ED Vital Signs/I&O Blood Pressure Mean: 99 Progress Note : Progress Note Patient was found to have rhabdomyolysis. This could be related to one of her medications. 2 L of IV fluids were administered. Toradol was administered for pain. Patient was feeling improved the time of dismissal. I did speak with Dr. Watson who would like the patient to present to [facility] on for repeat blood work. I reviewed her medications with her. I suggested stopping Remeron and Lyrica as they're both now causing rhabdomyolysis. Abilify is also a possibility. However, it might be a little more risky to stop Abilify with her behavioral health history. Departure Impression Impression: Primary Impression: Rhabdomyolysis Qualified Codes: M62.82 - Rhabdomyolysis Additional Impression: Myalgia Disposition: 01 HOME, SELF-CARE Condition: Improved Departure-Patient Inst. Decision time for Depature: 18:00 Referrals: [facility] (PCP/Family) Primary Care Physician Patient Instructions: Rhabdomyolysis Add. Discharge Instructions: Present at [facility] on December 05 for repeat lab work. [facility] should be calling you tomorrow for a follow-up appointment time to be seen later. Drink plenty of clear liquids. Stop Remeron (mirtazapine) and Lyrica (pregabalin) as they may be causing your rhabdomyolysis. Abilify also could potentially be causing rhabdomyolysis but may be more risky to stop. Return to care if symptoms worsen or he have other complications. If you do not hear from [facility] by tomorrow afternoon for a follow-up appointment, please call and requests the follow-up. All discharge instructions reviewed with patient and/or family. Voiced understanding. Copy Copies To 1: TIMMY WATSON MD, JOSHUA T MD Dec 02, 2016 19:08
[2016-12-02 19:12] VITALS: BP 147/96
== END 2016-12-02 19:12 | disposition home or self-care (01) ==
LOC: EDUNIT# 13:49 → ER 13:51
DX: M62.82 Rhabdomyolysis (principal); M79.1 Myalgia; F17.210 Nicotine dependence, cigarettes, uncomplicated
CPT/HCPCS: 36415; 80053; 82550; 85025; 85652; 86141; 96361; 96374

== ENCOUNTER → 2016-12-04 | Outpatient (CLI) | payer MEDICARE ==
[~2016-12-04] MED LIST changes: +ALPR1TAB7; +CYCL10TA9; +DICY20TA10 PO; +ESTR2TAB; +NAPR500T3; +ONDA4TAB8 SL; +SULF-222
[2016-12-04 13:59] LABS: ALANINE AMINOTRANSFERASE 22 U/L (0-55); ANION GAP 9 MMOL/L (5-14); ASPARTATE AMINO TRANSFERASE 18 U/L (5-34); BILIRUBIN,TOTAL 0.3 MG/DL (0.1-1.0); BLOOD UREA NITROGEN 15 MG/DL (7-18); BUN/CREATININE RATIO 18; CALCIUM 9.4 MG/DL (8.5-10.1); CARBON DIOXIDE 24 MMOL/L (21-32); CHLORIDE 106 MMOL/L (98-107); CREATINE KINASE 262 U/L (29-168); CREATININE SERUM 0.82 MG/DL (0.60-1.30); GFR ESTIMATED > 60; GLUCOSE 83 MG/DL (70-105); SODIUM 139 MMOL/L (135-145); TOTAL PROTEIN 7.4 G/DL (6.4-8.2)
== END ==
LOC: LAB 13:04
PROVIDERS: ATTEND Nurse Practitioner Community Health
DX: M62.82 Rhabdomyolysis (principal)
CPT/HCPCS: 36415; 80053; 82550

== ENCOUNTER 2016-12-07 08:04 | Emergency (ER) | payer MEDICARE ==
[~2016-12-07] VITALS: Ht 180.3 cm; Wt 108.9 kg
[~2016-12-07 08:04] MED LIST changes: -ALPR1TAB7; -CYCL10TA9; -DICY20TA10 PO; -ESTR2TAB; -NAPR500T3; -ONDA4TAB8 SL; -SULF-222
[2016-12-07] MEDS ORDERED: NAPR500T3 (08:26)
[2016-12-07] MEDS ORDERED: ESTR2TAB (08:26)
[2016-12-07] MEDS ORDERED: CYCL10TA9 (08:26)
[2016-12-07] MEDS ORDERED: SULF-222 (08:26)
[2016-12-07] MEDS ORDERED: ALPR1TAB7 (08:26)
[2016-12-07] MEDS ORDERED: NS IV 1000 ML 1,000 ML IV ONE ×2 (08:27→09:15)
[2016-12-07] MEDS ORDERED: ONDANSETRON 4 MG/2 ML (SDV) Z0FRAN IVP ONE (08:30)
[2016-12-07] MEDS ORDERED: KETOROLAC 30 MG/ML VIAL IVP ONE ×2 (08:30→09:15)
[2016-12-07 08:32] LABS: BILIRUBIN,URINE NEGATIVE (NEGATIVE); KETONES,URINE NEGATIVE (NEGATIVE); LEUKOCYTE ESTERASE ,URINE NEGATIVE (NEGATIVE); NITRITE,URINE NEGATIVE (NEGATIVE); PH,URINE 6 (5-9); PROTEIN,URINE NEGATIVE (NEGATIVE); UROBILINOGEN,URINE NORMAL (NORMAL)
[2016-12-07 08:38] LABS: BASOPHILS # (AUTO) 0.1 10^3/uL (0.0-0.1); BASOPHILS % (AUTO) 1 % (0-10); EOSINOPHILS # (AUTO) 0.2 10^3/uL (0.0-0.3); EOSINOPHILS % (AUTO) 3 % (0-10); LYMPHOCYTES # (AUTO) 1.9 X 10^3 (1.0-4.0); LYMPHOCYTES % (AUTO) 25 % (12-44); MEAN CORPUSCULAR HEMOGLOBIN 27 PG (25-34); MEAN CORPUSCULAR HGB CONC 34 G/DL (32-36); MEAN CORPUSCULAR VOLUME 81 FL (80-99); MEAN PLATELET VOLUME 9.7 FL (7.4-10.4); MONOCYTES # (AUTO) 0.6 X 10^3 (0.0-1.0); MONOCYTES % (AUTO) 7 % (0-12); NEUTROPHILS # (AUTO) 4.9 X 10^3 (1.8-7.8); NEUTROPHILS % (AUTO) 64 % (42-75); PLATELET COUNT 319 10^3/uL (130-400); RED CELL DISTRIBUTION WIDTH 15.5 % (10.0-14.5); WHITE BLOOD COUNT 7.7 10^3/uL (4.3-11.0)
--- NOTE | 2016-12-07 08:43 | ED General ---
General Chief Complaint: Back Problems Stated Complaint: BACK PAIN Nursing Triage Note: Stated she woke yesterday with pain from the "top of head to lower back" No injury. Stated that the pain becme worse last night and she was not able to sleep. Stated she called hospital yesterday and put in contact with [facility]. They told her to drink lots of water, take 75mg of Lyerica. States she is unable to drink because she vomits it up. Nursing Sepsis Screen: No Definite Risk Source of Information: Patient, Old Records Exam Limitations: No Limitations History of Present Illness Time Seen by Provider: 08:20 Initial Comments This 36-year-old woman presents to the emergency room with complaints of diffuse body aches and especially pain throughout the spine. She was seen by this provider on December 02 for similar symptoms. She is found to have mild rhabdomyolysis felt to be related to one of her medications. She discontinued Remeron and Lyrica at that time. Her creatinine kinase was 529 on December 02. She had outpatient labs performed on December 04 and creatinine kinase was 262. She restarted Lyrica at half the dose under the direction of her primary care provider on December 06. She then developed worsening pain again and today the pain is severe. She was instructed by the on-call provider to push fluids last night. However, she states nausea and vomiting prevented her from hydrating. She also started Bactrim yesterday due to "cysts" in the bilateral axilla. Allergies and Home Medications Allergies Coded Allergies: meperidine (Verified Adverse Reaction, Mild, NAUSEA, 12/07/16) morphine (Verified Adverse Reaction, Mild, NAUSEA, 09/13/07) Uncoded Allergies: STEROID PILLS (Allergy, Unknown, 11/15/13) Home Medications Alprazolam 1 Mg Tablet, #56 (Reported) Amoxicillin 500 Mg Capsule, 500 MG PO TID, #21 Prescribed by: RAFA ALVARENGA on 09/12/16 1210 Cyanocobalamin 1,000 Mcg/Ml Vial, 1,000 MCG IJ WEEKLY, (Reported) Cyclobenzaprine HCl 10 Mg Tablet, #60 (Reported) Estradiol 2 Mg Tablet, #21 (Reported) Furosemide 20 Mg Tablet, 20 MG PO DAILY, (Reported) Methylprednisolone Acetate 80 Mg/Ml Vial, 160 MG IJ MONTHLY, (Reported) Naproxen 500 Mg Tablet, 500 MG PO BID PRN for PAIN, #20 Prescribed by: RAFA ALVARENGA on 09/12/16 1058 Naproxen 500 Mg Tablet, #60 (Reported) Ondansetron 4 Mg Tab.rapdis, 4 MG SL Q4H PRN for NAUSEA/VOMITING-1ST LINE, #10 Prescribed by: JENNA MCDANIELS on 12/07/16 0930 Sulfamethoxazole/Trimethoprim 1 Each Tablet, #14 (Reported) [Flexeril] , 5 MG PO TID PRN for PAIN, #20 Prescribed by: RAFA ALVARENGA on 09/12/16 1058 Constitutional: see HPI, No fever, malaise, weakness EENTM: no symptoms reported Respiratory: no symptoms reported Cardiovascular: no symptoms reported Gastrointestinal: no symptoms reported Genitourinary: no symptoms reported Musculoskeletal: see HPI Skin: no symptoms reported Psychiatric/Neurological: See HPI Hematologic/Lymphatic: No Symptoms Reported Immunological/Allergic: no symptoms reported Past Diatiuq-Dmomgd-Jqsktv Hx Patient Social History Alcohol Use: Denies Use Recreational Drug Use: No Smoking Status: Current Everyday Smoker Type Used: Cigarettes Recent Foreign Travel: No Contact w/Someone Who Travel: No Recent Infectious Disease Expo: No Recent Hopitalizations: No Immunizations Up To Date Tetanus Booster (TDap): Unknown Date of Influenza Vaccine: May 15, 2016 Seasonal Allergies Seasonal Allergies: Yes Surgeries HX Surgeries: Yes (TEAR REPAIR AFTER VAG , DX LAP FOR ENDOMETRIOSIS/ OVARIAN CYSTS,EGD) Surgeries: Abdominal, Appendectomy, Gallbladder, Hysterectomy, Oophorectomy Respiratory Hx Respiratory Disorders: No Cardiovascular Hx Cardiac Disorders: No Neurological Hx Neurological Disorders: Yes (CHRONIC FATIGUE SYNDROME, FIBROMYALGIA) Neurological Disorders: Headaches /Migraines 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 System Hx 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 Disorders: Yes Sexually Transmitted Disease: No Female 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 Disorders: 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, 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 Genitourinary Hx Genitourinary Disorders: No Gastrointestinal Hx Gastrointestinal Disorders: Yes (CHRONIC NAUSEA) Gastrointestinal Disorders: Gastroesophageal Reflux, Diverticulosis Musculoskeletal Hx Musculoskeletal Disorders: Yes (CHRONIC FATIGUE SYNDROME, CHRONIC NECK PAIN AND GENERALIZED PAIN ) Musculoskeletal Disorders: Fibromyalgia, Chronic Back Pain Endocrine Hx Endocrine Disorders: Yes (STATES "HYPOGLYCEMIA") HEENT HX ENT Disorders: No Cancer Hx Cancer: No Psychosocial Hx Psychiatric Problems: Yes Behavioral Health Disorders: Anxiety, Depression Integumentary HX Skin/Integumentary Disorder: No Blood Transfusions Hx Blood Disorders: No Family Medical History Significant Family History: No Pertinent Family Hx Family Medial History: Cancer Cataract Family history: Allergy Family history: Arthritis Family history: Asthma Family history: Breast disease Family history: Diabetes mellitus Family history: Hypertension Family history: Osteoporosis Family history: Thyroid disorder Headache Heart disease Hypercholesterolemia Psychotic disorder Seizure disorder No Family History of: Abdominal aortic aneurysm [place]'s disease Alcoholism Aphasia Cancer of colon Chest pain Congenital heart disease Congestive heart failure Cystic fibrosis Dementia Dysphagia Family history: Alzheimer's disease Family history: Cardiovascular disease Family history: Coronary thrombosis Family history: Gastrointestinal disease Family history: Glaucoma Hearing loss Hereditary disease History of - anemia History of - disorder History of - respiratory disease History of drug abuse Human immunodeficiency virus (HIV) seropositivity Infertile Kidney disease Malignant neoplasm of lung Myocardial infarction Parkinson's disease Prostate cancer Stroke Tuberculosis Visual impairment Physical Exam Vital Signs Vital Sign - Last 12Hours 12/07/16 08:16 Temp 98.4 Pulse 89 Resp 18 B/P (MAP) 119/73 Pulse Ox 99 Capillary Refill : Less Than 3 Seconds General Appearance: WD/WN, Moderate Distress (tearful) HEENT: PERRL/EOMI, Normal ENT Inspection Neck: Normal Inspection Respiratory: Lungs Clear, Normal Breath Sounds, No Accessory Muscle Use, No Respiratory Distress Cardiovascular: Regular Rate, Rhythm, No Edema, No Murmur Gastrointestinal: Non Tender, Soft Back: Vertebral Tenderness (vertebral and paravertebral tenderness throughout the back) Neurologic/Psychiatric: Alert, Oriented x3, No Motor/Sensory Deficits, Normal Mood/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, 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 Tested Skin: Normal Color, Warm/Dry Progress/Results/Core Measures Results/Orders Lab Results Laboratory Tests Test 12/07/16 08:10 12/07/16 08:31 Range/Units Urine Color YELLOW Urine Clarity CLEAR Urine pH 6 5-9 Urine Specific Chauncey 1.015 L 1.016-1.022 Urine Protein NEGATIVE NEGATIVE Urine Glucose (UA) NEGATIVE NEGATIVE Urine Ketones NEGATIVE NEGATIVE Urine Nitrite NEGATIVE NEGATIVE Urine Bilirubin NEGATIVE NEGATIVE Urine Urobilinogen NORMAL NORMAL MG/DL Urine Leukocyte Esterase NEGATIVE NEGATIVE Urine RBC (Auto) NEGATIVE NEGATIVE Urine RBC NONE /HPF Urine WBC NONE /HPF Urine Squamous Epithelial Cells 25-50 H /HPF Urine Crystals NONE /LPF Urine Bacteria TRACE /HPF Urine Casts NONE /LPF Urine Mucus SMALL H /LPF Urine Culture Indicated NO White Blood Count 7.7 4.3-11.0 10^3/uL Red Blood Count 4.90 4.35-5.85 10^6/uL Hemoglobin 13.4 11.5-16.0 G/DL Hematocrit 40 35-52 % Mean Corpuscular Volume 81 80-99 FL Mean Corpuscular Hemoglobin 27 25-34 PG Mean Corpuscular Hemoglobin Concent 34 32-36 G/DL Red Cell Distribution Width 15.5 H 10.0-14.5 % Platelet Count 319 130-400 10^3/uL Mean Platelet Volume 9.7 7.4-10.4 FL Neutrophils (%) (Auto) 64 42-75 % Lymphocytes (%) (Auto) 25 12-44 % Monocytes (%) (Auto) 7 0-12 % Eosinophils (%) (Auto) 3 0-10 % Basophils (%) (Auto) 1 0-10 % Neutrophils # (Auto) 4.9 1.8-7.8 X 10^3 Lymphocytes # (Auto) 1.9 1.0-4.0 X 10^3 Monocytes # (Auto) 0.6 0.0-1.0 X 10^3 Eosinophils # (Auto) 0.2 0.0-0.3 10^3/uL Basophils # (Auto) 0.1 0.0-0.1 10^3/uL Erythrocyte Sedimentation Rate 14 0-20 MM/HR Sodium Level 140 135-145 MMOL/L Potassium Level 3.9 3.6-5.0 MMOL/L Chloride Level 107 98-107 MMOL/L Carbon Dioxide Level 24 21-32 MMOL/L Anion Gap 9 5-14 MMOL/L Blood Urea Nitrogen 16 7-18 MG/DL Creatinine 0.88 0.60-1.30 MG/DL Estimat Glomerular Filtration Rate > 60 BUN/Creatinine Ratio 18 Glucose Level 95 70-105 MG/DL Calcium Level 9.1 8.5-10.1 MG/DL Magnesium Level 2.1 1.8-2.4 MG/DL Total Bilirubin 0.3 0.1-1.0 MG/DL Aspartate Amino Transf (AST/SGOT) 21 5-34 U/L Alanine Aminotransferase (ALT/SGPT) 32 0-55 U/L Alkaline Phosphatase 123 40-136 U/L Total Creatine Kinase 300 H 29-168 U/L C-Reactive Protein High Sensitivity 2.16 H 0.00-0.50 MG/DL Total Protein 7.3 6.4-8.2 G/DL Albumin 4.0 3.2-4.5 G/DL My Orders Orders - JENNA RAGLAND MD Ua Culture If Indicated (12/07/16 08:19) Saline Lock/Iv-Start (12/07/16 08:27) Ns Iv 1000 Ml (Sodium Chloride 0.9%) (12/07/16 08:27) Cbc With Automated Diff (12/07/16 08:27) Comprehensive Metabolic Panel (12/07/16 08:27) Creatine Kinase (12/07/16 08:27) Hs C Reactive Protein (12/07/16 08:27) Erythrocyte Sedimentation Rate (12/07/16 08:27) Ketorolac Injection (Toradol Injection) (12/07/16 08:30) Ondansetron Injection (Zofran Injectio (12/07/16 08:30) Magnesium (12/07/16 08:27) Ketorolac Injection (Toradol Injection) (12/07/16 09:15) Saline Lock/Iv-Start (12/07/16 09:15) Ns Iv 1000 Ml (Sodium Chloride 0.9%) (12/07/16 09:15) Medications Given in ED Current Medications Medications Dose Ordered Sig/Cali Route Start Time Stop Time Status Last Admin Dose Admin Ketorolac Tromethamine 15 mg ONCE ONCE IVP 12/07/16 08:30 12/07/16 08:31 DC 12/07/16 08:38 15 MG Ketorolac Tromethamine 15 mg ONCE ONCE IVP 12/07/16 09:15 12/07/16 09:17 DC 12/07/16 09:18 15 MG Ondansetron HCl 4 mg ONCE ONCE IVP 12/07/16 08:30 12/07/16 08:31 DC 12/07/16 08:37 4 MG Sodium Chloride 1,000 ml @ 0 mls/hr Q0M ONCE IV 12/07/16 08:27 12/07/16 08:29 DC 12/07/16 08:36 1,000 MLS/HR Sodium Chloride 1,000 ml @ 0 mls/hr Q0M ONCE IV 12/07/16 09:15 12/07/16 09:17 DC 12/07/16 09:18 1,000 MLS/HR Vital Signs/I&O Vital Sign - Last 12Hours 12/07/16 08:16 Temp 98.4 Pulse 89 Resp 18 B/P (MAP) 119/73 Pulse Ox 99 Blood Pressure Mean: 88 Progress Note #1: Time: 08:44 Progress Note Patient seen and examined. Labs pending. IV fluids initiated. Zofran administered for nausea. Toradol worked for her myalgia previously. Toradol 15 mg IV was ordered to treat her present pain. Progress Note #2: Time: 09:50 Progress Note Creatinine kinase is rising again. It has increased to 300 from 262 on December 04. 2 L of IV fluids were infused. Patient was treated with Toradol which improved her pain. Recurrence of pain and rising creatinine kinase are felt to be related to resumption of Lyrica use. Patient was advised to stop Lyrica. She reports she is to have a creatinine kinase drawn again on Friday as arranged by the [facility] clinic and has a follow-up appointment on Friday. I encouraged her to follow through with these instructions. Departure Impression Impression: Primary Impression: Rhabdomyolysis Qualified Codes: M62.82 - Rhabdomyolysis Additional Impressions: Nausea and vomiting Qualified Codes: R11.2 - Nausea with vomiting, unspecified Myalgia Disposition: HOME, SELF-CARE Condition: Improved Departure-Patient Inst. Decision time for Depature: 09:20 Referrals: EMMIE ALLEN MD (PCP) Primary Care Physician MOMO GILBERT (Family) Primary Care Physician Patient Instructions: Rhabdomyolysis Add. Discharge Instructions: Drink plenty of clear liquid. Discontinue Lyrica. Use Tylenol (acetaminophen) up to 1000 mg every 6 hours as needed for pain. You may add ibuprofen sparingly up to 600 mg every 6 hours as needed for pain. Use Zofran (ondansetron) as prescribed for nausea and vomiting. Follow-up with your primary care provider again early next week. Return to care if symptoms worsen. Finish your antibiotics as previously prescribed. All discharge instructions reviewed with patient and/or family. Voiced understanding. Scripts Ondansetron (Zofran Odt) 4 Mg Tab.rapdis 4 MG SL Q4H Y for NAUSEA/VOMITING-1ST LINE, #10 TAB Prov: JENNA RAGLAND MD 12/07/16 Copy Copies To 1: TIMMY CRUMP MD, JOSHUA T MD Dec 07, 2016 08:43
[2016-12-07 09:00] LABS: SQUAMOUS EPITHELIAL CELL,UR 25-50 /HPF
[2016-12-07 09:03] LABS: ALANINE AMINOTRANSFERASE 32 U/L (0-55); ANION GAP 9 MMOL/L (5-14); ASPARTATE AMINO TRANSFERASE 21 U/L (5-34); BILIRUBIN,TOTAL 0.3 MG/DL (0.1-1.0); BLOOD UREA NITROGEN 16 MG/DL (7-18); BUN/CREATININE RATIO 18; CALCIUM 9.1 MG/DL (8.5-10.1); CARBON DIOXIDE 24 MMOL/L (21-32); CHLORIDE 107 MMOL/L (98-107); CREATINE KINASE 300 U/L (29-168); CREATININE SERUM 0.88 MG/DL (0.60-1.30); ERYTHROCYTE SEDIMENTATION RATE 14 MM/HR (0-20); GFR ESTIMATED > 60; GLUCOSE 95 MG/DL (70-105); MAGNESIUM 2.1 MG/DL (1.8-2.4); POTASSIUM 3.9 MMOL/L (3.6-5.0); SODIUM 140 MMOL/L (135-145); TOTAL PROTEIN 7.3 G/DL (6.4-8.2); hs C REACTIVE PROTEIN 2.16 MG/DL (0.00-0.50)
[2016-12-07] MEDS ORDERED: ONDA4TAB8 SL (09:30)
[2016-12-07 10:03] VITALS: BP 110/70
== END 2016-12-07 10:00 | disposition home or self-care (01) ==
LOC: EDUNIT# 08:04 → ER 08:05
DX: M62.82 Rhabdomyolysis (principal); R11.2 Nausea with vomiting, unspecified; Z79.899 Other long term (current) drug therapy; M79.7 Fibromyalgia; F17.210 Nicotine dependence, cigarettes, uncomplicated
CPT/HCPCS: 36415; 80053; 81000; 82550; 83735; 85025; 85652; 86141; 96361; 96374; 96375; 96376

== ENCOUNTER 2016-12-19 11:35 | Emergency (ER) | payer MEDICARE ==
[~2016-12-19] VITALS: Ht 180.3 cm; Wt 108.9 kg
[~2016-12-19 11:35] MED LIST changes: +ALPR1TAB7; +CYCL10TA9; +ESTR2TAB; +NAPR500T3; +ONDA4TAB8 SL; +SULF-222
[2016-12-19 12:07] LABS: BASOPHILS # (AUTO) 0.1 10^3/uL (0.0-0.1); BASOPHILS % (AUTO) 1 % (0-10); EOSINOPHILS # (AUTO) 0.1 10^3/uL (0.0-0.3); EOSINOPHILS % (AUTO) 1 % (0-10); LYMPHOCYTES # (AUTO) 2.7 X 10^3 (1.0-4.0); LYMPHOCYTES % (AUTO) 29 % (12-44); MEAN CORPUSCULAR HEMOGLOBIN 28 PG (25-34); MEAN CORPUSCULAR HGB CONC 34 G/DL (32-36); MEAN CORPUSCULAR VOLUME 81 FL (80-99); MEAN PLATELET VOLUME 9.8 FL (7.4-10.4); MONOCYTES # (AUTO) 0.5 X 10^3 (0.0-1.0); MONOCYTES % (AUTO) 5 % (0-12); NEUTROPHILS # (AUTO) 6.1 X 10^3 (1.8-7.8); NEUTROPHILS % (AUTO) 65 % (42-75); PLATELET COUNT 345 10^3/uL (130-400); RED BLOOD COUNT 5.04 10^6/uL (4.35-5.85); RED CELL DISTRIBUTION WIDTH 15.6 % (10.0-14.5); WHITE BLOOD COUNT 9.4 10^3/uL (4.3-11.0)
[2016-12-19] MEDS ORDERED: KETOROLAC 30 MG/ML VIAL IVP ONE (12:15)
[2016-12-19 12:25] LABS: ALANINE AMINOTRANSFERASE 35 U/L (0-55); ALBUMIN 4.3 G/DL (3.2-4.5); ANION GAP 8 MMOL/L (5-14); ASPARTATE AMINO TRANSFERASE 17 U/L (5-34); BILIRUBIN,TOTAL 0.4 MG/DL (0.1-1.0); BLOOD UREA NITROGEN 17 MG/DL (7-18); BUN/CREATININE RATIO 19; CALCIUM 9.6 MG/DL (8.5-10.1); CARBON DIOXIDE 27 MMOL/L (21-32); CHLORIDE 104 MMOL/L (98-107); CREATININE SERUM 0.88 MG/DL (0.60-1.30); GFR ESTIMATED > 60; GLUCOSE 94 MG/DL (70-105); LIPASE 5 U/L (8-78); POTASSIUM 3.6 MMOL/L (3.6-5.0); SODIUM 139 MMOL/L (135-145); TOTAL PROTEIN 7.7 G/DL (6.4-8.2)
[2016-12-19] MEDS ORDERED: PROCHLORPERAZINE 10 MG/2ML INJ (COMPAZINE) IV ONE (12:45)
[2016-12-19] MEDS ORDERED: DICY20TA10 PO (12:51)
--- NOTE | 2016-12-19 12:51 | ED Abdominal Pain ---
General Chief Complaint: Abdominal/GI Problems Stated Complaint: ABDOMINAL PAIN Nursing Triage Note: PT C/O DIFFUSE ABD PAIN X 2 WEEKS. SHE IS ALSO C/O NAUSEA. SHE DENIES VOMITING. SHE REPROTS BEING SEEN AT [facility] AND GIVEN PO ZOFRAN WITH NO RELIEF. SHE DENIES URINARY OR BOWEL S/S. Sepsis Screen: No Definite Risk Source of Information: Patient Exam Limitations: No Limitations History of Present Illness Time Seen By Provider: 12:49 Initial Comments To ER with diffuse abdominal pain for 2 weeks associated with cramping and diarrhea and nausea. She denies vomiting. She was seen at [facility] and given Zofran but denies any improvement with that. She has no dysuria. No fevers or chills. Timing/Duration: 1-2 Days Severity/Quality: Moderate Location: Generalized Abdomen Radiation: No Radiation Activities at Onset: None Associated Symptoms: Nausea/Vomiting Allergies and Home Medications Allergies Coded Allergies: pregabalin (Verified Adverse Reaction, Intermediate, 12/07/16) Rhabdomyolysis meperidine (Verified Adverse Reaction, Mild, NAUSEA, 12/07/16) morphine (Verified Adverse Reaction, Mild, NAUSEA, 09/13/07) Uncoded Allergies: STEROID PILLS (Allergy, Unknown, 11/15/13) Home Medications Alprazolam 1 Mg Tablet, #56 (Reported) Amoxicillin 500 Mg Capsule, 500 MG PO TID, #21 Prescribed by: RAFA ALVARENGA on 09/12/16 1210 Cyanocobalamin 1,000 Mcg/Ml Vial, 1,000 MCG IJ WEEKLY, (Reported) Cyclobenzaprine HCl 10 Mg Tablet, #60 (Reported) Dicyclomine HCl 20 Mg Tablet, 20 MG PO ACHS, #30 Prescribed by: RAFA ALVARENGA on 12/19/16 1251 Estradiol 2 Mg Tablet, #21 (Reported) Furosemide 20 Mg Tablet, 20 MG PO DAILY, (Reported) Methylprednisolone Acetate 80 Mg/Ml Vial, 160 MG IJ MONTHLY, (Reported) Naproxen 500 Mg Tablet, 500 MG PO BID PRN for PAIN, #20 Prescribed by: RAFA ALVARENGA on 09/12/16 1058 Naproxen 500 Mg Tablet, #60 (Reported) Ondansetron 4 Mg Tab.rapdis, 4 MG SL Q4H PRN for NAUSEA/VOMITING-1ST LINE, #10 Prescribed by: JENNA MCDANIELS on 12/07/16 0930 Sulfamethoxazole/Trimethoprim 1 Each Tablet, #14 (Reported) [Flexeril] , 5 MG PO TID PRN for PAIN, #20 Prescribed by: RAFA ALVARENGA on 09/12/16 1058 Review of Systems Constitutional: see HPI EENTM: No Symptoms Reported Respiratory: No Symptoms Reported Cardiovascular: No Symptoms Reported Gastrointestinal: See HPI, Abdominal Pain Genitourinary: No Symptoms Reported Musculoskeletal: no symptoms reported Skin: no symptoms reported Psychiatric/Neurological: No Symptoms Reported Endocrine: No Symptoms Reported Hematologic/Lymphatic: No Symptoms Reported Past Fniopwl-Sjthse-Jomhgq Hx Patient Social History Alcohol Use: Denies Use Recreational Drug Use: No Smoking Status: Current Everyday Smoker Type Used: Cigarettes 2nd Hand Smoke Exposure: No Recent Foreign Travel: No Contact w/Someone Who Travel: No Recent Infectious Disease Expo: No Recent Hopitalizations: No Immunizations Up To Date Tetanus Booster (TDap): Unknown Date of Influenza Vaccine: May 15, 2016 Seasonal Allergies Seasonal Allergies: Yes Surgeries HX Surgeries: Yes (TEAR REPAIR AFTER VAG , DX LAP FOR ENDOMETRIOSIS/ OVARIAN CYSTS,EGD) Surgeries: Abdominal, Appendectomy, Gallbladder, Hysterectomy, Oophorectomy Respiratory Hx Respiratory Disorders: No Cardiovascular Hx Cardiac Disorders: No Neurological Hx Neurological Disorders: Yes (CHRONIC FATIGUE SYNDROME, FIBROMYALGIA) Neurological Disorders: Headaches /Migraines 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 System Hx 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 Disorders: Yes Sexually Transmitted Disease: No Female 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 Disorders: 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, 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 Genitourinary Hx Genitourinary Disorders: No Gastrointestinal Hx Gastrointestinal Disorders: Yes (CHRONIC NAUSEA) Gastrointestinal Disorders: Gastroesophageal Reflux, Diverticulosis Musculoskeletal Hx Musculoskeletal Disorders: Yes (CHRONIC FATIGUE SYNDROME, CHRONIC NECK PAIN AND GENERALIZED PAIN ) Musculoskeletal Disorders: Fibromyalgia, Chronic Back Pain Endocrine Hx Endocrine Disorders: Yes (STATES "HYPOGLYCEMIA") HEENT HX ENT Disorders: No Cancer Hx Cancer: No Psychosocial Hx Psychiatric Problems: Yes Behavioral Health Disorders: Anxiety, Depression Integumentary HX Skin/Integumentary Disorder: No Blood Transfusions Hx Blood Disorders: No Family Medical History Significant Family History: No Pertinent Family Hx Family Medial History: Cancer Cataract Family history: Allergy Family history: Arthritis Family history: Asthma Family history: Breast disease Family history: Diabetes mellitus Family history: Hypertension Family history: Osteoporosis Family history: Thyroid disorder Headache Heart disease Hypercholesterolemia Psychotic disorder Seizure disorder No Family History of: Abdominal aortic aneurysm [place]'s disease Alcoholism Aphasia Cancer of colon Chest pain Congenital heart disease Congestive heart failure Cystic fibrosis Dementia Dysphagia Family history: Alzheimer's disease Family history: Cardiovascular disease Family history: Coronary thrombosis Family history: Gastrointestinal disease Family history: Glaucoma Hearing loss Hereditary disease History of - anemia History of - disorder History of - respiratory disease History of drug abuse Human immunodeficiency virus (HIV) seropositivity Infertile Kidney disease Malignant neoplasm of lung Myocardial infarction Parkinson's disease Prostate cancer Stroke Tuberculosis Visual impairment Physical Exam Vital Signs VS - Last 72 Hours, by Label 12/19/16 11:50 Temp 98.1 Pulse 89 Resp 16 B/P (MAP) 133/88 Pulse Ox 98 O2 Delivery Room Air Capillary Refill : Less Than 3 Seconds General Appearance: WD/WN, no apparent distress HEENT: PERRL/EOMI, normal ENT inspection Neck: non-tender, full range of motion Respiratory: no respiratory distress, no accessory muscle use Gastrointestinal: normal bowel sounds, non tender, soft Extremities: normal range of motion, non-tender Neurologic/Psychiatric: alert, normal mood/affect, oriented x 3 Skin: normal color, warm/dry Progress/Results/Core Measures Results/Orders Lab Results Laboratory Tests Test 12/19/16 12:00 Range/Units White Blood Count 9.4 4.3-11.0 10^3/uL Red Blood Count 5.04 4.35-5.85 10^6/uL Hemoglobin 14.0 11.5-16.0 G/DL Hematocrit 41 35-52 % Mean Corpuscular Volume 81 80-99 FL Mean Corpuscular Hemoglobin 28 25-34 PG Mean Corpuscular Hemoglobin Concent 34 32-36 G/DL Red Cell Distribution Width 15.6 H 10.0-14.5 % Platelet Count 345 130-400 10^3/uL Mean Platelet Volume 9.8 7.4-10.4 FL Neutrophils (%) (Auto) 65 42-75 % Lymphocytes (%) (Auto) 29 12-44 % Monocytes (%) (Auto) 5 0-12 % Eosinophils (%) (Auto) 1 0-10 % Basophils (%) (Auto) 1 0-10 % Neutrophils # (Auto) 6.1 1.8-7.8 X 10^3 Lymphocytes # (Auto) 2.7 1.0-4.0 X 10^3 Monocytes # (Auto) 0.5 0.0-1.0 X 10^3 Eosinophils # (Auto) 0.1 0.0-0.3 10^3/uL Basophils # (Auto) 0.1 0.0-0.1 10^3/uL Sodium Level 139 135-145 MMOL/L Potassium Level 3.6 3.6-5.0 MMOL/L Chloride Level 104 98-107 MMOL/L Carbon Dioxide Level 27 21-32 MMOL/L Anion Gap 8 5-14 MMOL/L Blood Urea Nitrogen 17 7-18 MG/DL Creatinine 0.88 0.60-1.30 MG/DL Estimat Glomerular Filtration Rate > 60 BUN/Creatinine Ratio 19 Glucose Level 94 70-105 MG/DL Calcium Level 9.6 8.5-10.1 MG/DL Total Bilirubin 0.4 0.1-1.0 MG/DL Aspartate Amino Transf (AST/SGOT) 17 5-34 U/L Alanine Aminotransferase (ALT/SGPT) 35 0-55 U/L Alkaline Phosphatase 113 40-136 U/L Total Protein 7.7 6.4-8.2 G/DL Albumin 4.3 3.2-4.5 G/DL Lipase 5 L 8-78 U/L My Orders Orders - RAFA ALVARENGA APRN Cbc With Automated Diff (12/19/16 12:01) Comprehensive Metabolic Panel (12/19/16 12:01) Lipase (12/19/16 12:01) Ua Culture If Indicated (12/19/16 12:01) Saline Lock/Iv-Start (12/19/16 12:01) Ketorolac Injection (Toradol Injection) (12/19/16 12:15) Prochlorperazine Injection (Compazine In (12/19/16 12:45) Medications Given in ED Current Medications Medications Dose Ordered Sig/Cali Route Start Time Stop Time Status Last Admin Dose Admin Ketorolac Tromethamine 30 mg ONCE ONCE IVP 12/19/16 12:15 12/19/16 12:16 DC 12/19/16 12:10 30 MG Prochlorperazine Edisylate 5 mg ONCE ONCE IV 12/19/16 12:45 12/19/16 12:46 DC 12/19/16 12:45 5 MG Vital Signs/I&O Vital Sign - Last 12Hours 12/19/16 11:50 Temp 98.1 Pulse 89 Resp 16 B/P (MAP) 133/88 Pulse Ox 98 O2 Delivery Room Air Blood Pressure Mean: 103 Departure Impression Impression: Primary Impression: Chronic abdominal pain Additional Impression: Irritable bowel Disposition: 01 HOME, SELF-CARE Condition: Improved Departure-Patient Inst. Decision time for Depature: 12:50 Referrals: EMMIE ALLEN MD (PCP/Family) Primary Care Physician Patient Instructions: Irritable Bowel Syndrome (DC) Add. Discharge Instructions: 1. Return to ER for any concerns 2. Follow-up with your doctor next week 3. All discharge instructions reviewed with patient and/or family. Voiced understanding. Scripts Dicyclomine HCl (Dicyclomine HCl) 20 Mg Tablet 20 MG PO ACHS, #30 TAB Prov: RAFA ALVARENGA APRN 12/19/16 RAFA ALVARENGA APRN December 19, 2016 12:51
[2016-12-19] MEDS ORDERED: NS IV 1000 ML 1,000 ML ONE (12:56)
[2016-12-19] MEDS ORDERED: NS IV 1000 ML 1,000 ML IV SCH (13:00)
[2016-12-19 13:02] LABS: BILIRUBIN,URINE NEGATIVE (NEGATIVE); KETONES,URINE NEGATIVE (NEGATIVE); LEUKOCYTE ESTERASE ,URINE 1+ (NEGATIVE); NITRITE,URINE NEGATIVE (NEGATIVE); PH,URINE 5 (5-9); PROTEIN,URINE NEGATIVE (NEGATIVE); UROBILINOGEN,URINE NORMAL (NORMAL)
[2016-12-19 14:02] VITALS: BP 122/84
== END 2016-12-19 14:02 | disposition home or self-care (01) ==
LOC: EDUNIT# 11:35 → ER 11:37
DX: K58.0 Irritable bowel syndrome with diarrhea (principal); G89.29 Other chronic pain; R11.0 Nausea; F17.210 Nicotine dependence, cigarettes, uncomplicated; Z79.899 Other long term (current) drug therapy
CPT/HCPCS: 36415; 80053; 81000; 83690; 85025; 87088; 96361; 96374; 96375

== ENCOUNTER 2017-01-23 10:08 | Emergency (ER) | payer MEDICARE, MEDICAID ==
[~2017-01-23] VITALS: Ht 180.3 cm; Wt 103.4 kg
[~2017-01-23 10:08] MED LIST changes: +CEPH-507 PO; +DICY20TA10 PO
--- NOTE | 2017-01-23 11:37 | ED EENT ---
History of Present Illness General Chief Complaint: Oral/Throat Problems Stated Complaint: SWOLLEN NECK/SORE THROAT Nursing Triage Note: pt ambulated to room. pt states she has had a swollen neck, mostly left side for about a week. pt states that when she chews her jaw locks up. pt states she has also been having nausea with this but no vomiting. Source: patient Exam Limitations: no limitations History of Present Illness Time seen by provider: 11:35 Initial Comments To ER with swelling to the left side of her neck supraclavicular region for the past several days. She had a steroid shot from her doctor on Friday of this week (3 days ago) but denies improvement. No fevers or chills. She does have a sore throat. Timing/Duration: abrupt Severity: moderate Location: throat Associated Symptoms: denies symptoms Allergies and Home Medications Allergies Coded Allergies: pregabalin (Verified Adverse Reaction, Intermediate, 12/07/16) Rhabdomyolysis meperidine (Verified Adverse Reaction, Mild, NAUSEA, 12/07/16) morphine (Verified Adverse Reaction, Mild, NAUSEA, 09/13/07) Uncoded Allergies: STEROID PILLS (Allergy, Unknown, 11/15/13) Home Medications Alprazolam 1 Mg Tablet, #56 (Reported) Cephalexin 500 Mg Capsule, 500 MG PO QID for 7 Days, (Reported) Cyanocobalamin 1,000 Mcg/Ml Vial, 1,000 MCG IJ WEEKLY, (Reported) Cyclobenzaprine HCl 10 Mg Tablet, #60 (Reported) Dicyclomine HCl 20 Mg Tablet, 20 MG PO ACHS, #30 Prescribed by: RAFA ALVARENGA on 12/19/16 1251 Estradiol 2 Mg Tablet, #21 (Reported) Furosemide 20 Mg Tablet, 20 MG PO DAILY, (Reported) Methylprednisolone Acetate 80 Mg/Ml Vial, 160 MG IJ MONTHLY, (Reported) Metronidazole 500 Mg Tablet, 500 MG PO BID for 7 Days, (Reported) Naproxen 500 Mg Tablet, 500 MG PO BID PRN for PAIN, #20 Prescribed by: RAFA ALVARENGA on 09/12/16 1058 Naproxen 500 Mg Tablet, #60 (Reported) Ondansetron 4 Mg Tab.rapdis, 4 MG SL Q4H PRN for NAUSEA/VOMITING-1ST LINE, #10 Prescribed by: JENNA MCDANIELS on 12/07/16 0930 Sulfamethoxazole/Trimethoprim 1 Each Tablet, #14 (Reported) [Flexeril] , 5 MG PO TID PRN for PAIN, #20 Prescribed by: RAFA ALVARENGA on 09/12/16 1058 Review of Systems Constitutional: see HPI Eyes: No Symptoms Reported Ears: No Symptoms Reported Nose: no symptoms reported Mouth: no symptoms reported Throat: no symptoms reported Respiratory: no symptoms reported Cardiovascular: no symptoms reported Musculoskeletal: no symptoms reported Past Lcdqfrc-Bpxkzi-Fxwgzw Hx Patient Social History Alcohol Use: Denies Use Recreational Drug Use: No Smoking Status: Current Everyday Smoker Type Used: Cigarettes 2nd Hand Smoke Exposure: Yes Recent Foreign Travel: No Contact w/Someone Who Travel: No Recent Infectious Disease Expo: No Recent Hopitalizations: No Immunizations Up To Date Tetanus Booster (TDap): Unknown Date of Influenza Vaccine: May 15, 2016 Seasonal Allergies Seasonal Allergies: Yes Surgeries HX Surgeries: Yes (TEAR REPAIR AFTER VAG , DX LAP FOR ENDOMETRIOSIS/ OVARIAN CYSTS,EGD) Surgeries: Abdominal, Appendectomy, Gallbladder, Hysterectomy, Oophorectomy Respiratory Hx Respiratory Disorders: No Cardiovascular Hx Cardiac Disorders: No Neurological Hx Neurological Disorders: Yes (CHRONIC FATIGUE SYNDROME, FIBROMYALGIA) Neurological Disorders: Headaches /Migraines 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 System Hx 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 Disorders: Yes Sexually Transmitted Disease: No Female 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 Disorders: 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, 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 Genitourinary Hx Genitourinary Disorders: No Gastrointestinal Hx Gastrointestinal Disorders: Yes (CHRONIC NAUSEA) Gastrointestinal Disorders: Gastroesophageal Reflux, Diverticulosis Musculoskeletal Hx Musculoskeletal Disorders: Yes (CHRONIC FATIGUE SYNDROME, CHRONIC NECK PAIN AND GENERALIZED PAIN ) Musculoskeletal Disorders: Fibromyalgia, Chronic Back Pain Endocrine Hx Endocrine Disorders: Yes (STATES "HYPOGLYCEMIA") HEENT HX ENT Disorders: No Cancer Hx Cancer: No Psychosocial Hx Psychiatric Problems: Yes Behavioral Health Disorders: Anxiety, Depression Integumentary HX Skin/Integumentary Disorder: No Blood Transfusions Hx Blood Disorders: No Family Medical History Significant Family History: No Pertinent Family Hx Family Medial History: Cancer Cataract Family history: Allergy Family history: Arthritis Family history: Asthma Family history: Breast disease Family history: Diabetes mellitus Family history: Hypertension Family history: Osteoporosis Family history: Thyroid disorder Headache Heart disease Hypercholesterolemia Psychotic disorder Seizure disorder No Family History of: Abdominal aortic aneurysm [place]'s disease Alcoholism Aphasia Cancer of colon Chest pain Congenital heart disease Congestive heart failure Cystic fibrosis Dementia Dysphagia Family history: Alzheimer's disease Family history: Cardiovascular disease Family history: Coronary thrombosis Family history: Gastrointestinal disease Family history: Glaucoma Hearing loss Hereditary disease History of - anemia History of - disorder History of - respiratory disease History of drug abuse Human immunodeficiency virus (HIV) seropositivity Infertile Kidney disease Malignant neoplasm of lung Myocardial infarction Parkinson's disease Prostate cancer Stroke Tuberculosis Visual impairment Physical Exam Vital Signs Vital Sign - Last 12Hours 01/23/17 11:20 Temp 97.0 Pulse 86 Resp 20 B/P (MAP) 107/77 Pulse Ox 100 O2 Delivery Room Air General Appearance: WD/WN, no apparent distress Eyes: bilateral eye EOMI, bilateral eye PERRL, bilateral eye normal inspection Ears: bilateral ear TM normal, bilateral ear auricle normal, bilateral ear canal normal Nose: normal inspection, active bleeding Neck: non-tender, full range of motion, other (tenderness to palpation of the left supraclavicular region. There is a small palpable nodule about less than 1 cm in the center of this. There is no erythema or ecchymosis.) Respiratory: normal breath sounds, no respiratory distress, no accessory muscle use Gastrointestinal: normal bowel sounds, non tender, soft Neurologic/Psychiatric: alert, normal mood/affect, oriented x 3 Skin: normal color, warm/dry Progress/Results/Core Measures Results/Orders My Orders Orders - RAFA ALVARENGA APRN Soft Tissue Head&Neck [id number] (01/23/17 11:34) Vital Signs/I&O Vital Sign - Last 12Hours 01/23/17 11:20 Temp 97.0 Pulse 86 Resp 20 B/P (MAP) 107/77 Pulse Ox 100 O2 Delivery Room Air Blood Pressure Mean: 87 Departure Impression Impression: Primary Impression: General medical exam Additional Impression: Lump in neck Disposition: 01 HOME, SELF-CARE Condition: Stable Departure-Patient Inst. Decision time for Depature: 11:58 Referrals: INGRID LEE MD (PCP/Family) Primary Care Physician Patient Instructions: NO INSTRUCTIONS GIVEN Add. Discharge Instructions: 1. Follow-up with your regular doctor All discharge instructions reviewed with patient and/or family. Voiced understanding. Copy Copies To 1: INGRID LEE MD, PETER J APRN Jan 23, 2017 11:37
[2017-01-23 12:05] VITALS: BP 107/77
--- NOTE | 2017-01-23 12:21 | Diagnostic Imaging Report ---
Ultrasound of the neck along the left supraclavicular region. INDICATION: Lump for five days in the left supraclavicular region. FINDINGS: The area of the lump is scanned with no underlying lesion or fluid collection noted. Similar overall appearance is seen on the contralateral side done for comparison. IMPRESSION: No focal lesion or fluid collection seen. Dictated by: Dictated on workstation # [id number]
== END 2017-01-23 12:05 | disposition home or self-care (01) ==
LOC: EDUNIT# 10:08 → ER 10:10
DX: R22.1 Localized swelling, mass and lump, neck (principal); F17.210 Nicotine dependence, cigarettes, uncomplicated
CPT/HCPCS: 76536; 99282

== ENCOUNTER 2017-02-07 07:18 | Emergency (ER) | payer MEDICARE, MEDICAID ==
[~2017-02-07] VITALS: Ht 177.8 cm; Wt 101.6 kg
--- OUTSIDE RECORDS SUMMARY | 2017-02-07 07:25 | XMS REPORT | Continuity of Care Document ---
Author Author [facility] Organization [facility] Address Unknown Phone Unavailable Allergies Active Description Code Type Severity Reaction Onset Reported/Identified Relationship to Patient Clinical Status Yes morphine [id number] Drug Allergy Mild NAUSEA 09/13/2007 Yes STEROID PILLS STEROID PILLS Unknown N/A 11/15/2013 Yes pregabalin [id number] Drug Allergy Moderate N/A 12/07/2016 Yes meperidine [id number] Drug Allergy Mild NAUSEA 12/07/2016 Medications Problems Date Dx Coded Attending Type Code Diagnosis Diagnosed By 08/13/2009 Ot 251.2 08/13/2009 Ot 787.01 08/13/2009 Ot 787.91 08/13/2009 Ot 789.00 12/17/2009 Ot 558.9 12/17/2009 Ot 787.91 04/18/2010 Ot 625.3 04/18/2010 Ot 626.2 05/17/2010 Ot 617.0 05/17/2010 Ot 617.3 05/17/2010 Ot 620.2 05/17/2010 Ot 621.6 05/17/2010 Ot 625.9 05/17/2010 Ot 626.2 09/27/2011 Ot 789.01 ABDOMINAL PAIN, RIGHT UPPER QUADRANT 05/16/2012 Ot 276.51 DEHYDRATION 05/16/2012 Ot 309.81 POSTTRAUMATIC STRESS DISORDER 05/16/2012 Ot 338.19 OTHER ACUTE PAIN 05/16/2012 Ot 338.29 OTHER CHRONIC PAIN 05/16/2012 Ot 784.0 HEADACHE 05/16/2012 Ot 787.03 VOMITING ALONE 05/19/2012 Ot 780.79 OTH MALAISE FATIGUE 05/19/2012 Ot 784.0 HEADACHE 05/19/2012 Ot 787.01 NAUSEA WITH VOMITING 07/17/2013 TIRSO MONDRAGON Ot 787.02 07/17/2013 TIRSO MONDRAGON Ot 789.00 11/17/2013 MARITZA LANCE, PAULINA Lock Ot 346.91 MGRN UNSPECIFIED W INTRACTABLE MGRN W/O 11/17/2013 MARITZA LANCE, PAULINA Lock Ot 729.5 PAIN IN LIMB 11/17/2013 MARITZA LANCE, PAULINA Lock Ot 784.59 OTHER SPEECH DISTURBANCE 06/06/2014 ELLYN LANCE, JENNA Perry Ot 459.89 06/06/2014 ELLYN LANCE, JENNA Perry Ot 599.0 06/06/2014 JENNA RAGLAND MD Ot 729.82 07/06/2014 MARITZA LANCE, PAULINA Lock Ot 305.1 07/06/2014 MARITZA LANCE, PAULINA Lock Ot 440.20 07/06/2014 MARITZA LANCE, PAULINA Lock Ot 729.5 09/08/2014 TIFFANY SAUCEDO MD Ot 564.00 UNSPEC CONSTIPATION 09/08/2014 TIFFANY SAUCEDO MD Ot 599.0 URIN TRACT INFECTION NOS 09/08/2014 TIFFANY SAUCEDO MD Ot 789.07 ABDOMINAL PAIN, GENERALIZED 10/24/2014 Ot 729.5 PAIN IN LIMB 10/24/2014 Ot 786.50 CHEST PAIN NOS 11/17/2014 DANDRE LANCE, ANN Akins Ot 788.30 11/25/2014 ANN AMOS MD Ot 788.30 11/30/2014 ANN AMOS MD Ot 788.30 12/02/2014 MARITZA LANCE, PAULINA Lock Ot 719.45 12/02/2014 PAULINA SALAS MD Ot 729.1 12/02/2014 MARITZA LANCE, PAULINA Lock Ot 729.5 12/02/2014 MARITZA LANCE, PAULINA Lock Ot 782.3 12/02/2014 MARITZA LANCE, PAULINA Lock Ot 784.0 12/02/2014 PAULINA SALAS MD Ot V57.1 12/02/2014 Ot 620.2 12/02/2014 Ot 793.5 12/02/2014 Ot 625.9 12/02/2014 Ot 251.2 12/02/2014 Ot 787.01 12/02/2014 Ot 787.91 12/02/2014 Ot 789.00 12/02/2014 Ot 724.5 12/02/2014 Ot 724.2 12/02/2014 Ot 724.4 12/02/2014 Ot 789.04 12/02/2014 Ot 218.9 12/02/2014 Ot 620.2 12/02/2014 Ot 626.2 12/02/2014 Ot V72.83 12/02/2014 Ot 789.01 12/02/2014 Ot 789.59 12/02/2014 Ot 620.2 12/02/2014 Ot 793.5 12/02/2014 Ot 625.9 12/02/2014 Ot 251.2 12/02/2014 Ot 787.01 12/02/2014 Ot 787.91 12/02/2014 Ot 789.00 12/02/2014 Ot 724.5 12/02/2014 Ot 724.2 12/02/2014 Ot 724.4 12/02/2014 Ot 789.04 12/02/2014 Ot 218.9 12/02/2014 Ot 620.2 12/02/2014 Ot 626.2 12/02/2014 Ot V72.83 12/02/2014 Ot 789.01 12/02/2014 Ot 789.59 12/02/2014 MARITZA LANCE, PAULINA Lock Ot 719.45 12/02/2014 MARITZA LANCE, [facility] Ot 729.1 12/02/2014 MARITZA LANCE, [facility] Ot 729.5 12/02/2014 MARITZA LANCE, [facility] Ot 782.3 12/02/2014 MARITZA LANCE, [facility] Ot 784.0 12/02/2014 MARITZA LANCE, PAULINA J Ot V57.1 12/02/2014 MARITZA LANCE, [facility] Ot 719.45 12/02/2014 MARITZA LANCE, PAULINA J Ot 729.1 12/02/2014 MARITZA LANCE, PAULINA J Ot 729.5 12/02/2014 MARITZA LANCE, [facility] Ot 782.3 12/02/2014 MARITZA LANCE, PAULINA J Ot 784.0 12/02/2014 MARITZA LANCE, PAULINA J Ot V57.1 12/02/2014 MARITZA LANCE, PAULINA J Ot 719.45 12/02/2014 MARITZA LANCE, PAULINA J Ot 729.1 12/02/2014 MARITZA LANCE, PAULINA J Ot 729.5 12/02/2014 MARITZA LANCE, PAULINA J Ot 782.3 12/02/2014 MARITZA LANCE, PAULINA J Ot 784.0 12/02/2014 MARITZA LANCE, PAULINA J Ot V57.1 12/02/2014 MARITZA LANCE, PAULINA J Ot 719.45 12/02/2014 MARITZA LANCE, PAULINA J Ot 729.1 12/02/2014 MARITZA LANCE, PAULINA J Ot 729.5 12/02/2014 MARITZA LANCE, PAULINA J Ot 782.3 12/02/2014 MARITZA LANCE, PAULINA J Ot 784.0 12/02/2014 MARITZA LANCE, PAULINA J Ot V57.1 12/02/2014 DANDRE LANCE, ANN Akins Ot 788.30 12/02/2014 ADNDRE LANCE, ANN Akins Ot 788.30 12/02/2014 DANDRE LANCE, ANN A Ot 788.30 12/02/2014 MARITZA LANCE, PAULINA J Ot 305.1 12/02/2014 MARITZA LANCE, PAULINA J Ot 440.20 12/02/2014 MARITZA LANCE, PAULINA J Ot 729.5 12/02/2014 MARITZA LANCE, PAULINA J Ot 305.1 12/02/2014 MARITZA LANCE, PAULINA J Ot 440.20 12/02/2014 MARITZA LANCE, PAULINA J Ot 729.5 12/09/2014 MARITZA LANCE, PAULINA J Ot 719.45 12/09/2014 MARITZA LANCE, PAULINA J Ot 729.1 12/09/2014 MARITZA LANCE, PAULINA J Ot 729.5 12/09/2014 MARITZA LANCE, PAULINA J Ot 782.3 12/09/2014 MARITZA LANCE, PAULINA J Ot 784.0 12/09/2014 MARITZA LANCE, PAULINA J Ot V57.1 12/09/2014 MARITZA LANCE, PAULINA J Ot 719.45 12/09/2014 MARITZA LANCE, PAULINA J Ot 729.1 12/09/2014 MARITZA LANCE, PAULINA J Ot 729.5 12/09/2014 MARITZA LANCE, PAULINA J Ot 782.3 12/09/2014 MARITZA LANCE, PAULINA J Ot 784.0 12/09/2014 MARITZA LANCE, PAULINA J Ot V57.1 12/26/2014 SANAM FRANK DO Ot 276.69 OTHER FLUID OVERLOAD 12/26/2014 SANAM FRANK DO Ot V58.69 OTH MED,LT,CURRENT USE 12/27/2014 MARITZA LANCE, PAULINA Lock Ot 719.45 12/27/2014 MARITZA LANCE, PAULINA J Ot 729.1 12/27/2014 MARITZA LANCE, PAULINA J Ot 729.5 12/27/2014 MARITZA LANCE, PAULINA J Ot 782.3 12/27/2014 MARITZA LANCE, PAULINA J Ot 784.0 12/27/2014 MARITZA LANCE, PAULINA J Ot V57.1 01/04/2015 DHIRAJ MD FACC, ALI FACP CCDS Ot 305.1 01/04/2015 DHIRAJ MD FACC, ALI FACP CCDS Ot 729.1 01/04/2015 DHIRAJ FACC, ALI FACP CCDS Ot 729.81 01/04/2015 DHIRAJ FACC, ALI FACP CCDS Ot 780.79 01/04/2015 DHIRAJ FACC, ALI FACP CCDS Ot 786.09 01/04/2015 DHIRAJ FACC, ALI FACP CCDS Ot 786.59 01/04/2015 DHIRAJ FACC, ALI FACP CCDS Ot 305.1 01/04/2015 DHIRAJ MD FACC, ALI FACP CCDS Ot 729.1 01/04/2015 DHIRAJ FACC, ALI FACP CCDS Ot 729.81 01/04/2015 DHIRAJ MD FACC, ALI FACP CCDS Ot 780.79 01/04/2015 DHIRAJ MD FAC, ALI FACP CCDS Ot 786.09 01/04/2015 DHIRAJ MD FAC, ALI FACP CCDS Ot 786.59 01/09/2015 MARITZA LANCE, PAULINA J Ot 719.45 01/09/2015 MARITZA LANCE, PAULINA J Ot 729.1 01/09/2015 MARITZA LANCE, [facility] Ot 729.5 01/09/2015 MARITZA LANCE, PAULINA J Ot 782.3 01/09/2015 MARITZA LANCE, PAULINA J Ot 784.0 01/09/2015 MARITZA LANCE, [facility] Ot V57.1 01/09/2015 MARITZA LANCE, PAULINA J Ot 719.45 01/09/2015 MARITZA LANCE, PAULINA J Ot 729.1 01/09/2015 MARITZA LANCE, PAULINA J Ot 729.5 01/09/2015 MARITZA LANCE, PAULINA J Ot 782.3 01/09/2015 MARITZA LANCE, PAULINA J Ot 784.0 01/09/2015 MARITZA LANCE, PAULINA J Ot V57.1 01/09/2015 MARITZA LANCE, PAULINA J Ot 719.45 01/09/2015 MARITZA LANCE, PAULINA J Ot 729.1 01/09/2015 MARITZA LANCE, [facility] Ot 729.5 01/09/2015 MARITZA LANCE, PAULINA Lock Ot 782.3 01/09/2015 MARITZA LANCE, PAULINA Lock Ot 784.0 01/09/2015 PAULINA SALAS MD Ot V57.1 01/09/2015 PAULINA SALAS MD Ot 719.45 01/09/2015 PAULINA SALAS MD Ot 729.1 01/09/2015 PAULINA SALAS MD Ot 729.5 01/09/2015 PAULINA SALAS MD Ot 782.3 01/09/2015 PAULINA SALAS MD Ot 784.0 01/09/2015 PAULINA SALAS MD Ot V57.1 01/11/2015 DHIRAJ LANCE FACC, ALI FACP CCDS Ot 305.1 01/11/2015 DHIRAJ LANCE FACC, ALI FACP CCDS Ot 729.1 01/11/2015 DHIRAJ LANCE FACC, ALI FACP CCDS Ot 729.81 01/11/2015 DHIRAJ LANCE FACC, ALI FACP CCDS Ot 780.79 01/11/2015 DHIRAJ LANCE FACC, ALI FACP CCDS Ot 786.09 01/11/2015 DHIRAJ LANCE FACC, ALI FACP CCDS Ot 786.59 01/11/2015 DHIRAJ LANCE FACC, ALI FACP CCDS Ot 305.1 01/11/2015 DHIRAJ LANCE FACC, ALI FACP CCDS Ot 729.1 01/11/2015 DHIRAJ LANCE FACC, ALI FACP CCDS Ot 729.81 01/11/2015 DHIRAJ LANCE FACC, ALI FACP CCDS Ot 780.79 01/11/2015 DHIRAJ LANCE FACC, ALI FACP CCDS Ot 786.09 01/11/2015 DHIRAJ LANCE FACC, ALI FACP CCDS Ot 786.59 01/18/2015 MARITZA LANCE, PAULINA Lock Ot 719.45 JOINT PAIN-PELVIS 01/18/2015 MARITZA LANCE, PAULINA Lock Ot 729.1 MYALGIA AND MYOSITIS NOS 01/18/2015 PAULINA SALAS MD Ot 729.5 PAIN IN LIMB 01/18/2015 PAULINA SALAS MD Ot 782.3 EDEMA 01/18/2015 PAULINA SALAS MD Ot 784.0 HEADACHE 01/18/2015 PAULINA SALAS MD Ot V57.1 PHYSICAL THERAPY NEC 02/01/2015 DHIRAJ LANCE FACC, ALI FACP CCDS Ot 305.1 02/01/2015 DHIRAJ WADDELL, ALI FACP CCDS Ot 729.1 02/01/2015 DHIRAJ LANCE FACC, ALI FACP CCDS Ot 729.81 02/01/2015 DHIRAJ LANCE FACC, ALI FACP CCDS Ot 780.79 02/01/2015 DHIRAJ LANCE FACC, ALI FACP CCDS Ot 786.09 02/01/2015 DHIRAJ LANCE FACC, ALI FACP CCDS Ot 786.59 05/16/2015 DHIRAJ LANCE [facility], ALI FACP CCDS Ot 305.1 05/16/2015 DHIRAJ LANCE FAC, ALI FACP CCDS Ot 729.1 05/16/2015 DHIRAJ LANCE FAC, ALI FACP CCDS Ot 729.81 05/16/2015 DHIRAJ LANCE FACC, ALI FACP CCDS Ot 780.79 05/16/2015 DHIRAJ LANCE FACC, ALI FACP CCDS Ot 786.09 05/16/2015 DHIRAJ LANCE FACC, ALI FACP CCDS Ot 786.59 11/30/2015 Ot 724.2 LUMBAGO 09/12/2016 Ot 789.01 ABDOMINAL PAIN, RIGHT UPPER QUADRANT 09/12/2016 Ot 789.59 OTHER ASCITES 09/12/2016 MARITZA LANCE, PAULINA Lock Ot 305.1 TOBACCO USE DISORDER 09/12/2016 MARITZA LANCE, PAULINA Lock Ot 440.20 ATHEROSCLEROSIS [place] ARTERIES EXTREMIT 09/12/2016 PAULINA SALAS MD Ot 729.5 PAIN IN LIMB 09/12/2016 DANDRE LANCE, ANN Akins Ot 788.30 UNSPECIFIED URINARY INCONTINENCE 09/12/2016 DHIRAJ LANCE FACC, ALI FACP CCDS Ot 305.1 TOBACCO USE DISORDER 09/12/2016 DHIRAJ LANCE FACC, ALI FACP CCDS Ot 729.1 MYALGIA AND MYOSITIS NOS 09/12/2016 DHIRAJ LANCE FACC, ALI FACP CCDS Ot 729.81 SWELLING OF LIMB 09/12/2016 DHIRAJ LANCE FACC, ALI FACP CCDS Ot 780.79 OTH MALAISE FATIGUE 09/12/2016 DHIRAJ LANCE FACC, ALI FACP CCDS Ot 786.09 RESPIRATORY ABNORM NEC 09/12/2016 DHIRAJ LANCE FACC, ALI FACP CCDS Ot 786.59 CHEST PAIN NEC 09/12/2016 RAFA ALVARENGA APRN Ot G89.29 OTHER CHRONIC PAIN 09/12/2016 RAFA ALVARENGA SOUND ASSISTANT Ot M43.6 TORTICOLLIS 09/12/2016 RAFA ALVARENGA SOUND ASSISTANT Ot M54.2 CERVICALGIA 09/12/2016 RAFA ALVARENGA SOUND ASSISTANT Ot M79.7 FIBROMYALGIA 09/13/2016 RAFA ALVARENGA SOUND ASSISTANT Ot G89.29 OTHER CHRONIC PAIN 09/13/2016 RAFA ALVARENGA SOUND ASSISTANT Ot M43.6 TORTICOLLIS 09/13/2016 RAFA ALVARENGA SOUND ASSISTANT Ot M54.2 CERVICALGIA 09/13/2016 RAFA ALVARENGA SOUND ASSISTANT Ot M79.7 FIBROMYALGIA 09/19/2016 RAFA ALVARENGA SOUND ASSISTANT Ot G89.29 OTHER CHRONIC PAIN 09/19/2016 RAFA ALVARENGA SOUND ASSISTANT Ot M43.6 TORTICOLLIS 09/19/2016 RAFA ALVARENGA SOUND ASSISTANT Ot M54.2 CERVICALGIA 09/19/2016 RAFA ALVARENGA SOUND ASSISTANT Ot M79.7 FIBROMYALGIA 11/28/2016 DANDRE LANCE, ANN Akins Ot 788.30 UNSPECIFIED URINARY INCONTINENCE 11/28/2016 DHIRAJ LANCE FAC, ALI FACP CCDS Ot 305.1 TOBACCO USE DISORDER 11/28/2016 DHIRAJ LANCE FAC, ALI FACP CCDS Ot 729.1 MYALGIA AND MYOSITIS NOS 11/28/2016 DHIRAJ LANCE FAC, ALI FACP CCDS Ot 729.81 SWELLING OF LIMB 11/28/2016 DHIRAJ LANCE FAC, ALI FACP CCDS Ot 780.79 OTH MALAISE FATIGUE 11/28/2016 DHIRAJ LANCE FAC, ALI FACP CCDS Ot 786.09 RESPIRATORY ABNORM NEC 11/28/2016 DHIRAJ WADDELL, ALI FACP CCDS Ot 786.59 CHEST PAIN NEC 11/28/2016 RAFA ALVARENGA SOUND ASSISTANT Ot F17.210 NICOTINE DEPENDENCE, CIGARETTES, UNCOMPL 11/28/2016 RAFA ALVARENGA SOUND ASSISTANT Ot R07.9 CHEST PAIN, UNSPECIFIED 11/28/2016 RAFA ALVARENGA SOUND ASSISTANT Ot Z79.899 OTHER LONG-TERM (CURRENT) DRUG THERAPY 11/29/2016 RAFA ALVARENGA SOUND ASSISTANT Ot F17.210 NICOTINE DEPENDENCE, CIGARETTES, UNCOMPL 11/29/2016 RAFA ALVARENGA SOUND ASSISTANT Ot R07.9 CHEST PAIN, UNSPECIFIED 11/29/2016 ALVARENGARAFA NO SOUND ASSISTANT Ot Z79.899 OTHER MARINE [employer] RESOURCE SPECIALIST (CURRENT) DRUG THERAPY 11/30/2016 RAFA ALVARENGA SOUND ASSISTANT Ot F17.210 NICOTINE DEPENDENCE, CIGARETTES, UNCOMPL 11/30/2016 RAFA ALVARENGA Ashvin SOUND ASSISTANT Ot R07.9 CHEST PAIN, UNSPECIFIED 11/30/2016 ALVARENGARAFA NO Ashvin SOUND ASSISTANT Ot Z79.899 OTHER MARINE H[employer]IT[employer] RESOURCE SPECIALIST (CURRENT) DRUG THERAPY 12/02/2016 ANN AMOS MD Ot 788.30 UNSPECIFIED URINARY INCONTINENCE 12/02/2016 DHIRAJ LANCE FACC, ALI FACP CCDS Ot 305.1 TOBACCO USE DISORDER 12/02/2016 DHIRAJ WADDELLC, ALI FACP CCDS Ot 729.1 MYALGIA AND MYOSITIS NOS 12/02/2016 DHIRAJ WADDELLC, ALI FACP CCDS Ot 729.81 SWELLING OF LIMB 12/02/2016 DHIRAJ WADDELLC, ALI FACP CCDS Ot 780.79 OTH MALAISE FATIGUE 12/02/2016 DHIRAJ WADDELLC, ALI FACP CCDS Ot 786.09 RESPIRATORY ABNORM NEC 12/02/2016 DHIRAJ LANCE FACC, ALI FACP CCDS Ot 786.59 CHEST PAIN NEC 12/02/2016 ELLYN LANCE, JENNA Perry Ot F17.210 NICOTINE DEPENDENCE, CIGARETTES, UNCOMPL 12/02/2016 JENNA RAGLAND MD Ot M54.2 CERVICALGIA 12/02/2016 JENNA RAGLAND MD Ot M62.82 RHABDOMYOLYSIS 12/02/2016 JENNA RAGLAND MD Ot M79.1 MYALGIA 12/04/2016 ANN AMOS MD Ot 788.30 UNSPECIFIED URINARY INCONTINENCE 12/04/2016 DHIRAJ WADDELLC, ALI FACP CCDS Ot 305.1 TOBACCO USE DISORDER 12/04/2016 DHIRAJ WADDELLC, ALI FACP CCDS Ot 729.1 MYALGIA AND MYOSITIS NOS 12/04/2016 DHIRAJ LANCE FACC, ALI FACP CCDS Ot 729.81 SWELLING OF LIMB 12/04/2016 DHIRAJ WADDELLC, ALI FACP CCDS Ot 780.79 OTH MALAISE FATIGUE 12/04/2016 DHIRAJ MD FACC, ALI FACP CCDS Ot 786.09 RESPIRATORY ABNORM NEC 12/04/2016 DHIRAJ LANCE FACC, ALI FACP CCDS Ot 786.59 CHEST PAIN NEC 12/07/2016 Ot 276.51 DEHYDRATION 12/07/2016 Ot 780.79 OTH MALAISE FATIGUE 12/07/2016 Ot 787.91 DIARRHEA 12/07/2016 JENNA RAGLAND MD Ot F17.210 NICOTINE DEPENDENCE, CIGARETTES, UNCOMPL 12/07/2016 JENNA RAGLAND MD Ot M54.5 LOW BACK PAIN 12/07/2016 JENNA RAGLAND MD Ot M62.82 RHABDOMYOLYSIS 12/07/2016 JENNA RAGLAND MD Ot M79.7 FIBROMYALGIA 12/07/2016 JENNA RAGLAND MD Ot R11.2 NAUSEA WITH VOMITING, UNSPECIFIED 12/07/2016 JENNA RAGLAND MD Ot Z79.899 OTHER LONG-TERM (CURRENT) DRUG THERAPY 12/07/2016 Ot 276.51 DEHYDRATION 12/07/2016 Ot 780.79 OTH MALAISE FATIGUE 12/07/2016 Ot 787.91 DIARRHEA 12/09/2016 JENNA RAGLAND MD Ot F17.210 NICOTINE DEPENDENCE, CIGARETTES, UNCOMPL 12/09/2016 JENNA RAGLAND MD Ot M54.5 LOW BACK PAIN 12/09/2016 JENNA RAGLAND MD Ot M62.82 RHABDOMYOLYSIS 12/09/2016 JENNA RAGLAND MD Ot M79.7 FIBROMYALGIA 12/09/2016 JENNA RAGLAND MD Ot R11.2 NAUSEA WITH VOMITING, UNSPECIFIED 12/09/2016 JENNA RAGLAND MD Ot Z79.899 OTHER LONG-TERM (CURRENT) DRUG THERAPY 12/11/2016 JENNA RAGLAND MD Ot F17.210 NICOTINE DEPENDENCE, CIGARETTES, UNCOMPL 12/11/2016 JENNA RAGLAND MD Ot M54.5 LOW BACK PAIN 12/11/2016 JENNA RAGLAND MD Ot M62.82 RHABDOMYOLYSIS 12/11/2016 JENNA RAGLAND MD Ot M79.7 FIBROMYALGIA 12/11/2016 ELLYN LANCE, JENNA Perry Ot R11.2 NAUSEA WITH VOMITING, UNSPECIFIED 12/11/2016 ELLYN LANCE, JENNA Perry Ot Z79.899 OTHER LONG-TERM (CURRENT) DRUG THERAPY 12/19/2016 RFAA ALVARENGA SOUND ASSISTANT Ot F17.210 NICOTINE DEPENDENCE, CIGARETTES, UNCOMPL 12/19/2016 RAFA ALVARENGA SOUND ASSISTANT Ot G89.29 OTHER CHRONIC PAIN 12/19/2016 RAFA ALVARENGA SOUND ASSISTANT Ot K58.0 IRRITABLE BOWEL SYNDROME WITH DIARRHEA 12/19/2016 RAFA ALVARENGA SOUND ASSISTANT Ot R11.0 NAUSEA 12/19/2016 RAFA ALVARENGA SOUND ASSISTANT Ot Z79.899 OTHER MARINE H[employer]IT[employer] RESOURCE SPECIALIST (CURRENT) DRUG THERAPY 12/25/2016 RAFA ALVARENGA SOUND ASSISTANT Ot F17.210 NICOTINE DEPENDENCE, CIGARETTES, UNCOMPL 12/25/2016 RAFA ALVARENGA SOUND ASSISTANT Ot G89.29 OTHER CHRONIC PAIN 12/25/2016 RAFA ALVARENGA SOUND ASSISTANT Ot K58.0 IRRITABLE BOWEL SYNDROME WITH DIARRHEA 12/25/2016 RAFA ALVARENGA SOUND ASSISTANT Ot R11.0 NAUSEA 12/25/2016 RAFA ALVARENGA SOUND ASSISTANT Ot Z79.899 OTHER LONG-TERM (CURRENT) DRUG THERAPY 12/27/2016 MOMO GILBERT Ot M62.82 RHABDOMYOLYSIS 01/23/2017 Ot 789.01 ABDOMINAL PAIN, RIGHT UPPER QUADRANT 01/23/2017 Ot 789.59 OTHER ASCITES 01/23/2017 MARITZA LANCE, PAULINA Lock Ot 305.1 TOBACCO USE DISORDER 01/23/2017 MARITZA LANCE, PAULINA Lock Ot 440.20 ATHEROSCLEROSIS [place] ARTERIES EXTREMIT 01/23/2017 PAULINA SALAS MD Ot 729.5 PAIN IN LIMB 01/23/2017 DANDRE LANCE, ANN Akins Ot 788.30 UNSPECIFIED URINARY INCONTINENCE 01/23/2017 DHIRAJ LANCE FACC, ELEUTERIO FACP CCDS Ot 305.1 TOBACCO USE DISORDER 01/23/2017 DHIRAJ LANCE FACC, ELEUTERIO FACP CCDS Ot 729.1 MYALGIA AND MYOSITIS NOS 01/23/2017 DHIRAJ LANCE FACC, ALI FACP CCDS Ot 729.81 SWELLING OF LIMB 01/23/2017 DHIRAJ LANCE FACC, ALI FACP CCDS Ot 780.79 OTH MALAISE FATIGUE 01/23/2017 DHIRAJ LANCE [facility], ELEUTERIO SOLANO CCDS Ot 786.09 RESPIRATORY ABNORM NEC 01/23/2017 DHIRAJ LANCE FACC, ELEUTERIO SOLANO [facility] Ot 786.59 CHEST PAIN NEC Procedures Results Test Result Range Complete blood count (CBC) with automated white blood cell (WBC) differential - 11/28/16 20:15 Blood leukocytes automated count (number/volume) 9.2 10*3/ uL 4.3-11.0 Blood erythrocytes automated count (number/volume) 4.73 10*6 /uL 4.35-5.85 Venous blood hemoglobin measurement (mass/volume) 13.0 g/dL 11.5-16.0 Blood hematocrit (volume fraction) 39 % 35-52 Automated erythrocyte mean corpuscular volume 82 [foz_us] 80-99 Automated erythrocyte mean corpuscular hemoglobin (mass per erythrocyte) 28 pg 25-34 Automated erythrocyte mean corpuscular hemoglobin concentration measurement ( mass/volume) 34 g/dL 32-36 Automated erythrocyte distribution width ratio 15.7 % 10.0-14.5 Automated blood platelet count (count/volume) 354 10*3/uL 130-400 Automated blood platelet mean volume measurement 9.9 [foz_us ] 7.4-10.4 Automated blood neutrophils/100 leukocytes 58 % 42-75 Automated blood lymphocytes/100 leukocytes 32 % 12-44 Blood monocytes/100 leukocytes 7 % 0-12 Automated blood eosinophils/100 leukocytes 2 % 0-10 Automated blood basophils/100 leukocytes 1 % 0-10 Blood neutrophils automated count (number/volume) 5.3 10*3 1.8-7.8 Blood lymphocytes automated count (number/volume) 2.9 10*3 1.0-4.0 Blood monocytes automated count (number/volume) 0.7 10*3 0.0-1.0 Automated eosinophil count 0.2 10*3/uL 0.0-0.3 Automated blood basophil count (count/volume) 0.1 10*3/uL 0.0-0.1 PT panel in platelet poor plasma by coagulation assay - 11/28/16 20:15 Prothrombin time (PT) in platelet poor plasma by coagulation assay 13.2 s 12.2-14.7 INR in platelet poor plasma or blood by coagulation assay 1.0 0.8-1.4 Activated partial thromboplastin time (aPTT) in platelet poor plasma bycoagulation assay - 11/28/16 20:15 Activated partial thromboplastin time (aPTT) in platelet poor plasma bycoagulation assay 30 s 24-35 Comprehensive metabolic panel - 11/28/16 20:15 Serum or plasma sodium measurement (moles/volume) 141 mmol/ L 135-145 Serum or plasma potassium measurement (moles/volume) 3.4 mmol/L 3.6-5.0 Serum or plasma chloride measurement (moles/volume) 106 mmol /L 98-107 Carbon dioxide 26 mmol/L 21-32 Serum or plasma anion gap determination (moles/volume) 9 mmol/L 5-14 Serum or plasma urea nitrogen measurement (mass/volume) 15 mg/dL 7-18 Serum or plasma creatinine measurement (mass/volume) 0.88 mg /dL 0.60-1.30 Serum or plasma urea nitrogen/creatinine mass ratio 17 NRG Serum or plasma creatinine measurement with calculation of estimated glomerular filtration rate > NRG Serum or plasma glucose measurement (mass/volume) 71 mg/dL 70-105 Serum or plasma calcium measurement (mass/volume) 9.1 mg/dL 8.5-10.1 Serum or plasma total bilirubin measurement (mass/volume) 0.3 mg/dL 0.1-1.0 Serum or plasma alkaline phosphatase measurement (enzymatic activity/volume) 114 U/L 40-136 Serum or plasma aspartate aminotransferase measurement (enzymatic activity/ volume) 23 U/L 5-34 Serum or plasma alanine aminotransferase measurement (enzymatic activity/volume ) 22 U/L 0-55 Serum or plasma protein measurement (mass/volume) 7.3 g/dL 6.4-8.2 Serum or plasma albumin measurement (mass/volume) 4.0 g/dL 3.2-4.5 Magnesium - 11/28/16 20:15 Magnesium 2.2 mg/dL 1.8-2.4 Serum or plasma troponin i.cardiac measurement (mass/volume) - 11/28/16 20:15 Serum or plasma troponin i.cardiac measurement (mass/volume) < ng/mL <0.30 Myoglobin, serum - 11/28/16 20:15 Myoglobin, serum 59.8 ng/mL 10.0-92.0 Complete blood count (CBC) with automated white blood cell (WBC) differential - 12/02/16 14:45 Blood leukocytes automated count (number/volume) 8.0 10*3/ uL 4.3-11.0 Blood erythrocytes automated count (number/volume) 5.17 10*6 /uL 4.35-5.85 Venous blood hemoglobin measurement (mass/volume) 14.0 g/dL 11.5-16.0 Blood hematocrit (volume fraction) 42 % 35-52 Automated erythrocyte mean corpuscular volume 81 [foz_us] 80-99 Automated erythrocyte mean corpuscular hemoglobin (mass per erythrocyte) 27 pg 25-34 Automated erythrocyte mean corpuscular hemoglobin concentration measurement ( mass/volume) 33 g/dL 32-36 Automated erythrocyte distribution width ratio 15.7 % 10.0-14.5 Automated blood platelet count (count/volume) 346 10*3/uL 130-400 Automated blood platelet mean volume measurement 9.9 [foz_us ] 7.4-10.4 Automated blood neutrophils/100 leukocytes 60 % 42-75 Automated blood lymphocytes/100 leukocytes 31 % 12-44 Blood monocytes/100 leukocytes 6 % 0-12 Automated blood eosinophils/100 leukocytes 2 % 0-10 Automated blood basophils/100 leukocytes 1 % 0-10 Blood neutrophils automated count (number/volume) 4.8 10*3 1.8-7.8 Blood lymphocytes automated count (number/volume) 2.5 10*3 1.0-4.0 Blood monocytes automated count (number/volume) 0.5 10*3 0.0-1.0 Automated eosinophil count 0.1 10*3/uL 0.0-0.3 Automated blood basophil count (count/volume) 0.1 10*3/uL 0.0-0.1 Erythrocyte sedimentation rate by westergren method - 12/02/16 14:45 Erythrocyte sedimentation rate by westergren method 19 mm 0-20 Comprehensive metabolic panel - 12/02/16 14:45 Serum or plasma sodium measurement (moles/volume) 142 mmol/ L 135-145 Serum or plasma potassium measurement (moles/volume) 3.6 mmol/L 3.6-5.0 Serum or plasma chloride measurement (moles/volume) 105 mmol /L 98-107 Carbon dioxide 26 mmol/L 21-32 Serum or plasma anion gap determination (moles/volume) 11 mmol/L 5-14 Serum or plasma urea nitrogen measurement (mass/volume) 13 mg/dL 7-18 Serum or plasma creatinine measurement (mass/volume) 0.94 mg /dL 0.60-1.30 Serum or plasma urea nitrogen/creatinine mass ratio 14 NRG Serum or plasma creatinine measurement with calculation of estimated glomerular filtration rate > NRG Serum or plasma glucose measurement (mass/volume) 88 mg/dL 70-105 Serum or plasma calcium measurement (mass/volume) 10.0 mg/ dL 8.5-10.1 Serum or plasma total bilirubin measurement (mass/volume) 0.3 mg/dL 0.1-1.0 Serum or plasma alkaline phosphatase measurement (enzymatic activity/volume) 129 U/L 40-136 Serum or plasma aspartate aminotransferase measurement (enzymatic activity/ volume) 28 U/L 5-34 Serum or plasma alanine aminotransferase measurement (enzymatic activity/volume ) 27 U/L 0-55 Serum or plasma protein measurement (mass/volume) 8.0 g/dL 6.4-8.2 Serum or plasma albumin measurement (mass/volume) 4.3 g/dL 3.2-4.5 Serum or plasma creatine kinase measurement (enzymatic activity/volume) - 12/02 14:45 Serum or plasma creatine kinase measurement (enzymatic activity/volume) 529 U/L 29-168 Serum or plasma C reactive protein measurement (mass/volume) - 12/02/16 14:45 Serum or plasma C reactive protein measurement (mass/volume) 1.88 mg/dL 0.00-0.50 Comprehensive metabolic panel - 12/04/16 13:17 Serum or plasma sodium measurement (moles/volume) 139 mmol/ L 135-145 Serum or plasma potassium measurement (moles/volume) 4.0 mmol/L 3.6-5.0 Serum or plasma chloride measurement (moles/volume) 106 mmol /L 98-107 Carbon dioxide 24 mmol/L 21-32 Serum or plasma anion gap determination (moles/volume) 9 mmol/L 5-14 Serum or plasma urea nitrogen measurement (mass/volume) 15 mg/dL 7-18 Serum or plasma creatinine measurement (mass/volume) 0.82 mg /dL 0.60-1.30 Serum or plasma urea nitrogen/creatinine mass ratio 18 NRG Serum or plasma creatinine measurement with calculation of estimated glomerular filtration rate > NRG Serum or plasma glucose measurement (mass/volume) 83 mg/dL 70-105 Serum or plasma calcium measurement (mass/volume) 9.4 mg/dL 8.5-10.1 Serum or plasma total bilirubin measurement (mass/volume) 0.3 mg/dL 0.1-1.0 Serum or plasma alkaline phosphatase measurement (enzymatic activity/volume) 106 U/L 40-136 Serum or plasma aspartate aminotransferase measurement (enzymatic activity/ volume) 18 U/L 5-34 Serum or plasma alanine aminotransferase measurement (enzymatic activity/volume ) 22 U/L 0-55 Serum or plasma protein measurement (mass/volume) 7.4 g/dL 6.4-8.2 Serum or plasma albumin measurement (mass/volume) 4.0 g/dL 3.2-4.5 Serum or plasma creatine kinase measurement (enzymatic activity/volume) - 12/04 13:17 Serum or plasma creatine kinase measurement (enzymatic activity/volume) 262 U/L 29-168 Complete urinalysis with reflex to culture - 12/07/16 08:10 Urine color determination YELLOW NRG Urine clarity determination CLEAR NRG Urine pH measurement by test strip 6 5- 9 Specific gravity of urine by test strip 1.015 1.016-1.022 Urine protein assay by test strip, semi-quantitative NEGATIVE NEGATIVE Urine glucose detection by automated test strip NEGATIVE NEGATIVE Erythrocytes detection in urine sediment by light microscopy NEGATIVE NEGATIVE Urine ketones detection by automated test strip NEGATIVE NEGATIVE Urine nitrite detection by test strip NEGATIVE NEGATIVE Urine total bilirubin detection by test strip NEGATIVE NEGATIVE Urine urobilinogen measurement by automated test strip (mass/volume) NORMAL NORMAL Urine leukocyte esterase detection by dipstick NEGATIVE NEGATIVE Automated urine sediment erythrocyte count by microscopy (number/high power field) NONE NRG Automated urine sediment leukocyte count by microscopy (number/high power field ) NONE NRG Bacteria detection in urine sediment by light microscopy TRACE NRG Squamous epithelial cells detection in urine sediment by light microscopy 25-50 NRG Crystals detection in urine sediment by light microscopy NONE NRG Casts detection in urine sediment by light microscopy NONE NRG Mucus detection in urine sediment by light microscopy SMALL NRG Complete urinalysis with reflex to culture NO NRG Complete blood count (CBC) with automated white blood cell (WBC) differential - 12/07/16 08:31 Blood leukocytes automated count (number/volume) 7.7 10*3/ uL 4.3-11.0 Blood erythrocytes automated count (number/volume) 4.90 10*6 /uL 4.35-5.85 Venous blood hemoglobin measurement (mass/volume) 13.4 g/dL 11.5-16.0 Blood hematocrit (volume fraction) 40 % 35-52 Automated erythrocyte mean corpuscular volume 81 [foz_us] 80-99 Automated erythrocyte mean corpuscular hemoglobin (mass per erythrocyte) 27 pg 25-34 Automated erythrocyte mean corpuscular hemoglobin concentration measurement ( mass/volume) 34 g/dL 32-36 Automated erythrocyte distribution width ratio 15.5 % 10.0-14.5 Automated blood platelet count (count/volume) 319 10*3/uL 130-400 Automated blood platelet mean volume measurement 9.7 [foz_us ] 7.4-10.4 Automated blood neutrophils/100 leukocytes 64 % 42-75 Automated blood lymphocytes/100 leukocytes 25 % 12-44 Blood monocytes/100 leukocytes 7 % 0-12 Automated blood eosinophils/100 leukocytes 3 % 0-10 Automated blood basophils/100 leukocytes 1 % 0-10 Blood neutrophils automated count (number/volume) 4.9 10*3 1.8-7.8 Blood lymphocytes automated count (number/volume) 1.9 10*3 1.0-4.0 Blood monocytes automated count (number/volume) 0.6 10*3 0.0-1.0 Automated eosinophil count 0.2 10*3/uL 0.0-0.3 Automated blood basophil count (count/volume) 0.1 10*3/uL 0.0-0.1 Erythrocyte sedimentation rate by westergren method - 12/07/16 08:31 Erythrocyte sedimentation rate by westergren method 14 mm 0-20 Comprehensive metabolic panel - 12/07/16 08:31 Serum or plasma sodium measurement (moles/volume) 140 mmol/ L 135-145 Serum or plasma potassium measurement (moles/volume) 3.9 mmol/L 3.6-5.0 Serum or plasma chloride measurement (moles/volume) 107 mmol /L 98-107 Carbon dioxide 24 mmol/L 21-32 Serum or plasma anion gap determination (moles/volume) 9 mmol/L 5-14 Serum or plasma urea nitrogen measurement (mass/volume) 16 mg/dL 7-18 Serum or plasma creatinine measurement (mass/volume) 0.88 mg /dL 0.60-1.30 Serum or plasma urea nitrogen/creatinine mass ratio 18 NRG Serum or plasma creatinine measurement with calculation of estimated glomerular filtration rate > NRG Serum or plasma glucose measurement (mass/volume) 95 mg/dL 70-105 Serum or plasma calcium measurement (mass/volume) 9.1 mg/dL 8.5-10.1 Serum or plasma total bilirubin measurement (mass/volume) 0.3 mg/dL 0.1-1.0 Serum or plasma alkaline phosphatase measurement (enzymatic activity/volume) 123 U/L 40-136 Serum or plasma aspartate aminotransferase measurement (enzymatic activity/ volume) 21 U/L 5-34 Serum or plasma alanine aminotransferase measurement (enzymatic activity/volume ) 32 U/L 0-55 Serum or plasma protein measurement (mass/volume) 7.3 g/dL 6.4-8.2 Serum or plasma albumin measurement (mass/volume) 4.0 g/dL 3.2-4.5 Magnesium - 12/07/16 08:31 Magnesium 2.1 mg/dL 1.8-2.4 Serum or plasma creatine kinase measurement (enzymatic activity/volume) - 12/07 08:31 Serum or plasma creatine kinase measurement (enzymatic activity/volume) 300 U/L 29-168 Serum or plasma C reactive protein measurement (mass/volume) - 12/07/16 08:31 Serum or plasma C reactive protein measurement (mass/volume) 2.16 mg/dL 0.00-0.50 Complete blood count (CBC) with automated white blood cell (WBC) differential - 12/19/16 12:00 Blood leukocytes automated count (number/volume) 9.4 10*3/ uL 4.3-11.0 Blood erythrocytes automated count (number/volume) 5.04 10*6 /uL 4.35-5.85 Venous blood hemoglobin measurement (mass/volume) 14.0 g/dL 11.5-16.0 Blood hematocrit (volume fraction) 41 % 35-52 Automated erythrocyte mean corpuscular volume 81 [foz_us] 80-99 Automated erythrocyte mean corpuscular hemoglobin (mass per erythrocyte) 28 pg 25-34 Automated erythrocyte mean corpuscular hemoglobin concentration measurement ( mass/volume) 34 g/dL 32-36 Automated erythrocyte distribution width ratio 15.6 % 10.0-14.5 Automated blood platelet count (count/volume) 345 10*3/uL 130-400 Automated blood platelet mean volume measurement 9.8 [foz_us ] 7.4-10.4 Automated blood neutrophils/100 leukocytes 65 % 42-75 Automated blood lymphocytes/100 leukocytes 29 % 12-44 Blood monocytes/100 leukocytes 5 % 0-12 Automated blood eosinophils/100 leukocytes 1 % 0-10 Automated blood basophils/100 leukocytes 1 % 0-10 Blood neutrophils automated count (number/volume) 6.1 10*3 1.8-7.8 Blood lymphocytes automated count (number/volume) 2.7 10*3 1.0-4.0 Blood monocytes automated count (number/volume) 0.5 10*3 0.0-1.0 Automated eosinophil count 0.1 10*3/uL 0.0-0.3 Automated blood basophil count (count/volume) 0.1 10*3/uL 0.0-0.1 Comprehensive metabolic panel - 12/19/16 12:00 Serum or plasma sodium measurement (moles/volume) 139 mmol/ L 135-145 Serum or plasma potassium measurement (moles/volume) 3.6 mmol/L 3.6-5.0 Serum or plasma chloride measurement (moles/volume) 104 mmol /L 98-107 Carbon dioxide 27 mmol/L 21-32 Serum or plasma anion gap determination (moles/volume) 8 mmol/L 5-14 Serum or plasma urea nitrogen measurement (mass/volume) 17 mg/dL 7-18 Serum or plasma creatinine measurement (mass/volume) 0.88 mg /dL 0.60-1.30 Serum or plasma urea nitrogen/creatinine mass ratio 19 NRG Serum or plasma creatinine measurement with calculation of estimated glomerular filtration rate > NRG Serum or plasma glucose measurement (mass/volume) 94 mg/dL 70-105 Serum or plasma calcium measurement (mass/volume) 9.6 mg/dL 8.5-10.1 Serum or plasma total bilirubin measurement (mass/volume) 0.4 mg/dL 0.1-1.0 Serum or plasma alkaline phosphatase measurement (enzymatic activity/volume) 113 U/L 40-136 Serum or plasma aspartate aminotransferase measurement (enzymatic activity/ volume) 17 U/L 5-34 Serum or plasma alanine aminotransferase measurement (enzymatic activity/volume ) 35 U/L 0-55 Serum or plasma protein measurement (mass/volume) 7.7 g/dL 6.4-8.2 Serum or plasma albumin measurement (mass/volume) 4.3 g/dL 3.2-4.5 Lipase - 12/19/16 12:00 Lipase 5 U/L 8-78 Complete urinalysis with reflex to culture - 12/19/16 12:55 Urine color determination YELLOW NRG Urine clarity determination CLEAR NRG Urine pH measurement by test strip 5 5- 9 Specific gravity of urine by test strip 1.025 1.016-1.022 Urine protein assay by test strip, semi-quantitative NEGATIVE NEGATIVE Urine glucose detection by automated test strip NEGATIVE NEGATIVE Erythrocytes detection in urine sediment by light microscopy NEGATIVE NEGATIVE Urine ketones detection by automated test strip NEGATIVE NEGATIVE Urine nitrite detection by test strip NEGATIVE NEGATIVE Urine total bilirubin detection by test strip NEGATIVE NEGATIVE Urine urobilinogen measurement by automated test strip (mass/volume) NORMAL NORMAL Urine leukocyte esterase detection by dipstick 1+ NEGATIVE Automated urine sediment erythrocyte count by microscopy (number/high power field) RARE NRG Automated urine sediment leukocyte count by microscopy (number/high power field ) [HPF] NRG Bacteria detection in urine sediment by light microscopy FEW NRG Squamous epithelial cells detection in urine sediment by light microscopy 5-10 NRG Crystals detection in urine sediment by light microscopy NONE NRG Casts detection in urine sediment by light microscopy NONE NRG Mucus detection in urine sediment by light microscopy LARGE NRG Complete urinalysis with reflex to culture YES NRG Bacterial urine culture - 12/19/16 12:55 Bacterial urine culture [id number] NRG COLONY COUNT >100,000/ML NRG FTX;REPORTABLE SENSITIVITY REPORTED AT 1002, 517 NRG URINE CULTURE RESULTS PLUS NRG Bacterial susceptibility panel - 12/19/16 12:55 Gentamicin susceptibility test by minimum inhibitory concentration <= NRG Trimethoprim/sulfamethoxazole susceptibility test by minimum inhibitoryconcentration <= NRG Ampicillin susceptibility test by minimum inhibitory concentration 4 NRG Tobramycin susceptibility test by minimum inhibitory concentration <= NRG Cefazolin susceptibility test by minimum inhibitory concentration <= NRG Ceftriaxone susceptibility test by minimum inhibitory concentration <= NRG Ampicillin/sulbactam susceptibility test by minimum inhibitory concentration <= NRG Piperacillin/tazobactam susceptibility test by minimum inhibitory concentration <= NRG Ciprofloxacin susceptibility test by minimum inhibitory concentration <= NRG Meropenem susceptibility test by minimum inhibitory concentration <= NRG Nitrofurantoin susceptibility test by minimum inhibitory concentration <= NRG Aztreonam susceptibility test by minimum inhibitory concentration <= NRG Extended spectrum beta lactamase (ESBL) producing bacteria susceptibility test by minimum inhibitory concentration - NRG Encounters ACCT No. Visit Date/Time Discharge Status Pt. Type Provider Facility Loc./Unit Complaint [id number] 01/23/2017 10:10:00 2016 12:05:00 DIS Emergency RAFA ALVARENGA APRN [facility] ER SWOLLEN NECK/SORE THROAT [id number] 12/19/2016 11:37:00 2016 14:02:00 DIS Emergency RAFA ALVARENGA APRN [facility] ER ABDOMINAL PAIN [id number] 12/07/2016 08:05:00 2016 10:00:00 DIS Emergency JENNA RAGLAND MD [facility] ER BACK PAIN [id number] 12/02/2016 13:51:00 2016 19:12:00 DIS Emergency JENNA RAGLAND MD [facility] ER BACK/NECK PAIN [id number] 11/28/2016 20:13:00 2016 21:20:00 DIS Emergency RAFA ALVARENGA APRN [facility] ER CP [id number] 09/12/2016 10:23:00 2016 12:18:00 DIS Emergency RAFA ALVARENGA APRN [facility] ER NECK PAIN/SWELLING [id number] 01/04/2015 08:21:00 2014 11:58:00 DIS Outpatient PAULINA SALAS MD [facility] REHAB B HIP,LEG AND FOOT PAIN; MUSCLOSKELETAL PAIN;WALKER [id number] 12/29/2014 09:44:00 2014 23:59:59 CLS Outpatient DHIRAJ LANCE FACC, ELEUTERIO SOLANO CCDS [facility] CARD CP DYSPNEA [id number] 12/26/2014 11:56:00 2014 14:01:00 DIS Emergency SANAM FRANK DO [facility] ER RETAINING FLUID [id number] 09/08/2014 14:21:00 2014 16:55:00 DIS Emergency SHERYL LANCE, TIFFANY Anthony [facility] ER DIZZINESS/CHEST PAIN [id number] 06/17/2014 10:36:00 2013 23:59:59 CLS Outpatient DANDRE LANCE, ANN Akins [facility] RAD INCONTINENCE [id number] 06/07/2014 14:01:00 2013 23:59:59 CLS Outpatient PAULINA SALAS MD [facility] RAD BILAT LEG PAIN, CRAMPING [id number] 06/06/2014 06:28:00 2013 08:20:00 DIS Emergency ELLYN LANCE, JENNA Perry [facility] ER [id number] 11/15/2013 13:01:00 2013 08:30:00 DIS Inpatient PAULINA SALAS MD [facility] 4TH RT LEG AND CALF PAIN, INTRACTIBLE MIGRAIN [id number] 10/01/2013 15:36:00 2013 18:25:00 DIS Emergency [id number] 09/26/2013 12:25:00 2013 15:52:00 DIS Emergency [id number] 09/21/2013 10:31:00 2013 12:20:00 DIS Emergency [id number] 07/29/2013 11:41:00 2012 15:00:00 DIS Outpatient [id number] 07/17/2013 15:24:00 2012 18:06:00 DIS Emergency TIRSO MONDRAGON [facility] ER [id number] 06/29/2013 10:19:00 2012 23:59:59 CLS Outpatient [id number] 06/16/2013 17:10:00 2012 19:10:00 DIS Emergency [id number] 05/27/2013 11:46:00 2012 15:30:00 DIS Outpatient [id number] 03/17/2013 08:16:00 2012 11:13:00 DIS Outpatient [id number] 03/24/2013 09:43:00 2012 11:26:00 DIS Outpatient [id number] 12/25/2012 12:22:00 2012 23:59:59 CLS Outpatient [id number] 12/24/2012 14:54:00 2012 23:59:59 CLS Outpatient [id number] 01/20/2017 14:36:00 CHRIS LEE MD, INGRID Melendez [facility] RAD R22.1 SWELLING IN LT NECK [id number] 12/07/2016 08:24:00 Document Registration [id number] 12/04/2016 13:04:00 ACT Outpatient MOMO GILBERT [facility] LAB M62.82 [id number] 12/02/2014 08:26:00 Document Registration [id number] 12/02/2014 08:26:00 Document Registration [id number] 12/02/2014 08:26:00 Document Registration [id number] 12/02/2014 08:26:00 Document Registration [id number] 12/02/2014 08:26:00 Document Registration [id number] 12/02/2014 08:26:00 Document Registration [id number] 12/02/2014 08:26:00 Document Registration [id number] 10/24/2014 05:15:00 Document Registration [id number] 07/30/2012 00:00:00 Document Registration [id number] 05/18/2012 13:40:00 Document Registration [id number] 05/15/2012 11:30:00 Document Registration [id number] 04/01/2012 10:33:00 Document Registration [id number] 09/27/2011 14:15:00 Document Registration [id number] 09/27/2011 11:55:00 Document Registration [id number] 05/17/2010 05:55:00 Document Registration [id number] 05/04/2010 09:40:00 Document Registration [id number] 04/20/2010 11:00:00 Document Registration [id number] 04/18/2010 08:54:00 Document Registration [id number] 02/26/2010 09:22:00 Document Registration [id number] 12/17/2009 11:03:00 Document Registration [id number] 08/14/2009 00:00:00 Document Registration [id number] 06/15/2009 10:51:00 Document Registration
[2017-02-07 07:50] LABS: BASOPHILS % (AUTO) 1 % (0-10); EOSINOPHILS # (AUTO) 0.1 10^3/uL (0.0-0.3); EOSINOPHILS % (AUTO) 1 % (0-10); LYMPHOCYTES # (AUTO) 2.5 X 10^3 (1.0-4.0); LYMPHOCYTES % (AUTO) 34 % (12-44); MEAN CORPUSCULAR HEMOGLOBIN 27 PG (25-34); MEAN CORPUSCULAR HGB CONC 34 G/DL (32-36); MEAN CORPUSCULAR VOLUME 80 FL (80-99); MEAN PLATELET VOLUME 9.5 FL (7.4-10.4); MONOCYTES # (AUTO) 0.5 X 10^3 (0.0-1.0); MONOCYTES % (AUTO) 7 % (0-12); NEUTROPHILS # (AUTO) 4.1 X 10^3 (1.8-7.8); NEUTROPHILS % (AUTO) 57 % (42-75); PLATELET COUNT 330 10^3/uL (130-400); RED BLOOD COUNT 5.29 10^6/uL (4.35-5.85); WHITE BLOOD COUNT 7.2 10^3/uL (4.3-11.0)
[2017-02-07 07:53] LABS: BILIRUBIN,URINE NEGATIVE (NEGATIVE); KETONES,URINE NEGATIVE (NEGATIVE); LEUKOCYTE ESTERASE ,URINE NEGATIVE (NEGATIVE); NITRITE,URINE NEGATIVE (NEGATIVE); PH,URINE 6 (5-9); PROTEIN,URINE 1+ (NEGATIVE); UROBILINOGEN,URINE NORMAL (NORMAL)
[2017-02-07 07:59] LABS: SQUAMOUS EPITHELIAL CELL,UR 25-50 /HPF
[2017-02-07 08:11] LABS: ALANINE AMINOTRANSFERASE 56 U/L (0-55); ALBUMIN 4.2 GM/DL (3.2-4.5); ANION GAP 9 MMOL/L (5-14); ASPARTATE AMINO TRANSFERASE 25 U/L (5-34); BILIRUBIN,TOTAL 0.3 MG/DL (0.1-1.0); BLOOD UREA NITROGEN 14 MG/DL (7-18); BUN/CREATININE RATIO 16; CALCIUM 9.6 MG/DL (8.5-10.1); CARBON DIOXIDE 25 MMOL/L (21-32); CHLORIDE 105 MMOL/L (98-107); CREATININE SERUM 0.85 MG/DL (0.60-1.30); GFR ESTIMATED > 60; GLUCOSE 101 MG/DL (70-105); POTASSIUM 3.7 MMOL/L (3.6-5.0); SODIUM 139 MMOL/L (135-145); TOTAL PROTEIN 8.2 GM/DL (6.4-8.2)
--- NOTE | 2017-02-07 09:03 | ED Abdominal Pain ---
General Chief Complaint: Abdominal/GI Problems Stated Complaint: STOMACH ACHE/DIARRHEA/HEADACHE Nursing Triage Note: c/o stomache ache, diarrhea,and nausea for the past week. Sepsis Screen: No Definite Risk Source of Information: Patient Exam Limitations: No Limitations History of Present Illness Time Seen By Provider: 08:58 Initial Comments The patient is a 36-year-old black female who has had many previous visits here. This is her eighth contact in 2017. She presents today with complaints of generalized abdominal pain and diarrhea. She states that she is suffered from irritable bowel syndrome for years. She began to have discomfort early in the week. It is now considerably worse. She has Bentyl at home and had been taking it without much improvement. She did note that she is now having about 3 loose stools per day. Her irritable bowel has tended to be of the diarrhea type. She now has a posterior headache as well. Timing/Duration: 1 Week Severity/Quality: Mild, Moderate Location: Generalized Abdomen, Periumbilical Radiation: No Radiation Activities at Onset: None Associated Symptoms: Headache, Nausea/Vomiting Allergies and Home Medications Allergies Coded Allergies: pregabalin (Verified Adverse Reaction, Intermediate, 12/07/16) Rhabdomyolysis meperidine (Verified Adverse Reaction, Mild, NAUSEA, 12/07/16) morphine (Verified Adverse Reaction, Mild, NAUSEA, 09/13/07) Uncoded Allergies: STEROID PILLS (Allergy, Unknown, 11/15/13) Home Medications Alprazolam 1 Mg Tablet, #56 (Reported) Cephalexin 500 Mg Capsule, 500 MG PO QID for 7 Days, (Reported) Cyanocobalamin 1,000 Mcg/Ml Vial, 1,000 MCG IJ WEEKLY, (Reported) Cyclobenzaprine HCl 10 Mg Tablet, #60 (Reported) Dicyclomine HCl 20 Mg Tablet, 20 MG PO ACHS, #30 Prescribed by: RAFA ALVARENGA on 12/19/16 1251 Estradiol 2 Mg Tablet, #21 (Reported) Furosemide 20 Mg Tablet, 20 MG PO DAILY, (Reported) Methylprednisolone Acetate 80 Mg/Ml Vial, 160 MG IJ MONTHLY, (Reported) Metronidazole 500 Mg Tablet, 500 MG PO BID for 7 Days, (Reported) Naproxen 500 Mg Tablet, 500 MG PO BID PRN for PAIN, #20 Prescribed by: RAFA ALVARENGA on 09/12/16 1058 Naproxen 500 Mg Tablet, #60 (Reported) Ondansetron 4 Mg Tab.rapdis, 4 MG SL Q4H PRN for NAUSEA/VOMITING-1ST LINE, #10 Prescribed by: JENNA MCDANIELS on 12/07/16 0930 Sulfamethoxazole/Trimethoprim 1 Each Tablet, #14 (Reported) [Flexeril] , 5 MG PO TID PRN for PAIN, #20 Prescribed by: RAFA ALVARENGA on 09/12/16 1058 Review of Systems Constitutional: see HPI EENTM: No Symptoms Reported Respiratory: No Symptoms Reported Cardiovascular: No Symptoms Reported Gastrointestinal: Diarrhea, Nausea, Poor Appetite Genitourinary: No Symptoms Reported Musculoskeletal: no symptoms reported Skin: no symptoms reported Psychiatric/Neurological: No Symptoms Reported, Headache Endocrine: No Symptoms Reported Hematologic/Lymphatic: No Symptoms Reported Past Ylicfca-[id number]-Njgvjp Hx Patient Social History Alcohol Use: Denies Use Recreational Drug Use: No Smoking Status: Current Everyday Smoker Type Used: Cigarettes 2nd Hand Smoke Exposure: Yes Recent Foreign Travel: No Contact w/Someone Who Travel: No Recent Infectious Disease Expo: No Recent Hopitalizations: No Immunizations Up To Date Tetanus Booster (TDap): Unknown Date of Influenza Vaccine: May 15, 2016 Seasonal Allergies Seasonal Allergies: Yes Surgeries HX Surgeries: Yes (TEAR REPAIR AFTER VAG , DX LAP FOR ENDOMETRIOSIS/ OVARIAN CYSTS,EGD) Surgeries: Abdominal, Appendectomy, Gallbladder, Hysterectomy, Oophorectomy Respiratory Hx Respiratory Disorders: No Cardiovascular Hx Cardiac Disorders: No Neurological Hx Neurological Disorders: Yes (CHRONIC FATIGUE SYNDROME, FIBROMYALGIA) Neurological Disorders: Headaches /Migraines 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 System Hx 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 Disorders: Yes Sexually Transmitted Disease: No Female 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 Disorders: 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, Ovarian Cyst [employer] History: Hysterectomy Genitourinary Hx Genitourinary Disorders: No Gastrointestinal Hx Gastrointestinal Disorders: Yes (CHRONIC NAUSEA) Gastrointestinal Disorders: Gastroesophageal Reflux, Diverticulosis Musculoskeletal Hx Musculoskeletal Disorders: Yes (CHRONIC FATIGUE SYNDROME, CHRONIC NECK PAIN AND GENERALIZED PAIN ) Musculoskeletal Disorders: Fibromyalgia, Chronic Back Pain Endocrine Hx Endocrine Disorders: Yes (STATES "HYPOGLYCEMIA") HEENT HX ENT Disorders: No Cancer Hx Cancer: No Psychosocial Hx Psychiatric Problems: Yes Behavioral Health Disorders: Anxiety, Depression Integumentary HX Skin/Integumentary Disorder: No Blood Transfusions Hx Blood Disorders: No Family Medical History Significant Family History: No Pertinent Family Hx Family Medial History: Cancer Cataract Family history: Allergy Family history: Arthritis Family history: Asthma Family history: Breast disease Family history: Diabetes mellitus Family history: Hypertension Family history: Osteoporosis Family history: Thyroid disorder Headache Heart disease Hypercholesterolemia Psychotic disorder Seizure disorder No Family History of: Abdominal aortic aneurysm Edgar's disease Alcoholism Aphasia Cancer of colon Chest pain Congenital heart disease Congestive heart failure Cystic fibrosis Dementia Dysphagia Family history: Alzheimer's disease Family history: Cardiovascular disease Family history: Coronary thrombosis Family history: Gastrointestinal disease Family history: Glaucoma Hearing loss Hereditary disease History of - anemia History of - disorder History of - respiratory disease History of drug abuse Human immunodeficiency virus (HIV) seropositivity Infertile Kidney disease Malignant neoplasm of lung Myocardial infarction Parkinson's disease Prostate cancer Stroke Tuberculosis Visual impairment Physical Exam Vital Signs VS - Last 72 Hours, by Label 02/07/17 07:31 Temp 98.3 Pulse 96 Resp 16 B/P (MAP) 110/89 Pulse Ox 98 O2 Delivery Room Air Capillary Refill : Less Than 3 Seconds General Appearance: WD/WN, no apparent distress HEENT: normal ENT inspection Neck: full range of motion Respiratory: chest non-tender, lungs clear, normal breath sounds, no respiratory distress, no accessory muscle use Cardiovascular: normal peripheral pulses, regular rate, rhythm, no edema, no gallop, no JVD, no murmur Gastrointestinal: abnormal bowel sounds (somewhat decreased), tenderness (mild diffuse) Extremities: normal range of motion, non-tender, normal inspection, no pedal edema, no calf tenderness, normal capillary refill, pelvis stable Back: normal inspection 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, no motor/sensory deficits, alert, normal mood/affect, oriented x 3 Skin: normal color, warm/dry Lymphatic: no adenopathy Progress/Results/Core Measures Results/Orders Lab Results Laboratory Tests Test 02/07/17 07:45 Range/Units White Blood Count 7.2 4.3-11.0 10^3/uL Red Blood Count 5.29 4.35-5.85 10^6/uL Hemoglobin 14.4 11.5-16.0 G/DL Hematocrit 42 35-52 % Mean Corpuscular Volume 80 80-99 FL Mean Corpuscular Hemoglobin 27 25-34 PG Mean Corpuscular Hemoglobin Concent 34 32-36 G/DL Red Cell Distribution Width 15.0 H 10.0-14.5 % Platelet Count 330 130-400 10^3/uL Mean Platelet Volume 9.5 7.4-10.4 FL Neutrophils (%) (Auto) 57 42-75 % Lymphocytes (%) (Auto) 34 12-44 % Monocytes (%) (Auto) 7 0-12 % Eosinophils (%) (Auto) 1 0-10 % Basophils (%) (Auto) 1 0-10 % Neutrophils # (Auto) 4.1 1.8-7.8 X 10^3 Lymphocytes # (Auto) 2.5 1.0-4.0 X 10^3 Monocytes # (Auto) 0.5 0.0-1.0 X 10^3 Eosinophils # (Auto) 0.1 0.0-0.3 10^3/uL Basophils # (Auto) 0.0 0.0-0.1 10^3/uL Urine Color YELLOW Urine Clarity CLEAR Urine pH 6 5-9 Urine Specific [place] 1.020 1.016-1.022 Urine Protein 1+ H NEGATIVE Urine Glucose (UA) NEGATIVE NEGATIVE Urine Ketones NEGATIVE NEGATIVE Urine Nitrite NEGATIVE NEGATIVE Urine Bilirubin NEGATIVE NEGATIVE Urine Urobilinogen NORMAL NORMAL MG/DL Urine Leukocyte Esterase NEGATIVE NEGATIVE Urine RBC (Auto) 1+ H NEGATIVE Urine RBC NONE /HPF Urine WBC NONE /HPF Urine Squamous Epithelial Cells 25-50 H /HPF Urine Crystals NONE /LPF Urine Bacteria TRACE /HPF Urine Casts NONE /LPF Urine Mucus NEGATIVE /LPF Urine Culture Indicated NO Sodium Level 139 135-145 MMOL/L Potassium Level 3.7 3.6-5.0 MMOL/L Chloride Level 105 98-107 MMOL/L Carbon Dioxide Level 25 21-32 MMOL/L Anion Gap 9 5-14 MMOL/L Blood Urea Nitrogen 14 7-18 MG/DL Creatinine 0.85 0.60-1.30 MG/DL Estimat Glomerular Filtration Rate > 60 BUN/Creatinine Ratio 16 Glucose Level 101 70-105 MG/DL Calcium Level 9.6 8.5-10.1 MG/DL Total Bilirubin 0.3 0.1-1.0 MG/DL Aspartate Amino Transf (AST/SGOT) 25 5-34 U/L Alanine Aminotransferase (ALT/SGPT) 56 H 0-55 U/L Alkaline Phosphatase 147 H 40-136 U/L Total Protein 8.2 6.4-8.2 GM/DL Albumin 4.2 3.2-4.5 GM/DL My Orders Orders - TIFFANY SAUCEDO MD Cbc With Automated Diff (02/07/17 07:33) Comprehensive Metabolic Panel (02/07/17 07:33) Ua Culture If Indicated (02/07/17 07:33) Vital Signs/I&O Vital Sign - Last 12Hours 02/07/17 07:31 Temp 98.3 Pulse 96 Resp 16 B/P (MAP) 110/89 Pulse Ox 98 O2 Delivery Room Air Blood Pressure Mean: 96 Departure Communication Progress Notes Laboratory is relatively normal. There is a very modest elevation of alkaline phosphatase and ALT. In looking at her old records and lab results there was a similar modest elevation in 2011. She was post cholecystectomy by then. A gallbladder sonogram was done which suggested the possibility of a minimal intrahepatic biliary distention. Impression Impression: Primary Impression: abdominal pain/irritable bowel Disposition: HOME, SELF-CARE Condition: Stable/Unchanged Departure-Patient Inst. Decision time for Depature: 09:05 Referrals: INGRID LEE MD (PCP/Family) Primary Care Physician Patient Instructions: Irritable Bowel Syndrome (DC) Add. Discharge Instructions: All discharge instructions reviewed with patient and/or family. Voiced understanding. Take Bentyl as prescribed. Zofran as needed for nausea/vomiting. Take a clear liquid diet for 24 hours. I would suggest 7-Up and Gatorade in about equal amounts. If symptoms clear at that time began to reintroduce food in small amounts. If continued problems see your provider TIFFANY SAUCEDO MD Feb 07, 2017 09:03
[2017-02-07 09:16] VITALS: BP 110/82
== END 2017-02-07 09:16 | disposition home or self-care (01) ==
LOC: EDUNIT# 07:18 → ER 07:20
DX: K58.9 Irritable bowel syndrome, unspecified (principal); G43.909 Migraine, unspecified, not intractable, without status migrainosus; K21.9 Gastro-esophageal reflux disease without esophagitis; F41.8 Other specified anxiety disorders; F17.210 Nicotine dependence, cigarettes, uncomplicated; Z90.49 Acquired absence of other specified parts of digestive tract; Z90.89 Acquired absence of other organs
CPT/HCPCS: 36415; 80053; 81000; 85025

== ENCOUNTER 2017-02-12 11:43 | Emergency (ER) | payer MEDICARE, MEDICAID ==
[~2017-02-12] VITALS: Ht 177.8 cm; Wt 101.6 kg
[~2017-02-12 11:43] MED LIST changes: -NABU750T PO
[2017-02-12 13:43] VITALS: BP 0/0
--- OUTSIDE RECORDS SUMMARY | 2017-02-12 18:15 | XMS REPORT | Continuity of Care Document ---
Author Author [facility] Organization [facility] Address Unknown Phone Unavailable Allergies Active Description Code Type Severity Reaction Onset Reported/Identified Relationship to Patient Clinical Status Yes morphine [id number] Drug Allergy Mild NAUSEA 09/13/2007 Yes STEROID PILLS STEROID PILLS Unknown N/A 11/15/2013 Yes pregabalin [id number] Drug Allergy Moderate N/A 12/07/2016 Yes meperidine [id number] Drug Allergy Mild NAUSEA 12/07/2016 Medications Problems [...] PAULINA Lock Ot 719.45 12/02/2014 MARITZA LANCE, [facility] Ot 729.1 12/02/2014 MARITZA LANCE, [facility] Ot 729.5 12/02/2014 MARITZA LANCE, [facility] Ot 782.3 12/02/2014 MARITZA LANCE, [facility] Ot 784.0 12/02/2014 MARITZA LANCE, PAULINA J Ot V57.1 12/02/2014 MARITZA LANCE, [facility] Ot 719.45 12/02/2014 MARITZA LANCE, PAULINA J Ot 729.1 12/02/2014 MARITZA LANCE, PAULINA J Ot 729.5 12/02/2014 MARITZA LANCE, [facility] Ot 782.3 12/02/2014 MARITZA LANCE, PAULINA [...] DANDRE LANCE, ANN Akins Ot 788.30 12/02/2014 DANDRE LANCE, ANN Akins Ot 788.30 12/02/2014 DANDRE LANCE, ANN A Ot 788.30 12/02/2014 MARITZA LANCE, PAULINA J Ot 305.1 12/02/2014 MARITZA LANCE, PAULINA J Ot 440.20 12/02/2014 MAIRTZA LANCE, PAULINA J Ot 729.5 12/02/2014 MARITZA [...] PAULINA J Ot 729.1 01/09/2015 MARITZA LANCE, [facility] Ot 729.5 01/09/2015 MARITZA LANCE, PAULINA J Ot 782.3 01/09/2015 MARITZA LANCE, PAULINA J Ot 784.0 01/09/2015 MARITZA LANCE, [facility] Ot V57.1 01/09/2015 MARITZA LANCE, PAULINA J Ot 719.45 01/09/2015 MARITZA LANCE, PAULINA J Ot 729.1 01/09/2015 MARITZA LANCE, PAULINA J Ot 729.5 01/09/2015 MARITZA LANCE, PAULINA J Ot 782.3 01/09/2015 MARITZA LANCE, PAULINA J Ot 784.0 01/09/2015 MARITZA LANCE, PAULINA J Ot V57.1 01/09/2015 MARITZA LANCE, PAULINA J Ot 719.45 01/09/2015 MARITZA LANCE, PAULINA J Ot 729.1 01/09/2015 MARITZA LANCE, [facility] Ot 729.5 01/09/2015 MARITZA LANCE, PAULINA [...] FACP CCDS Ot 786.59 05/16/2015 DHIRAJ LANCE [facility], ALI FACP CCDS Ot 305.1 05/16/2015 DHIRAJ LANCE FAC, ALI FACP CCDS Ot 729.1 05/16/2015 DHIRAJ LANCE FAC, ALI FACP CCDS Ot 729.81 05/16/2015 DHIRAJ LNACE FACC, ALI FACP CCDS Ot 780.79 05/16/2015 DIHRAJ LANCE FACC, ALI FACP CCDS Ot 786.09 05/16/2015 DHIRAJ LANCE FACC, ALI FACP CCDS Ot 786.59 11/30/2015 Ot 724.2 LUMBAGO 09/12/2016 Ot 789.01 ABDOMINAL PAIN, RIGHT UPPER QUADRANT 09/12/2016 Ot 789.59 OTHER ASCITES 09/12/2016 MARITZA LANCE, PAULINA Lock Ot 305.1 TOBACCO USE DISORDER 09/12/2016 MARITZA LANCE, PAULINA Lock Ot 440.20 ATHEROSCLEROSIS [place] ARTERIES EXTREMIT 09/12/2016 PAULINA SALAS MD Ot [...] G89.29 OTHER CHRONIC PAIN 09/12/2016 RAFA ALVARENGA [employer] TECH Ot M43.6 TORTICOLLIS 09/12/2016 RAFA ALVARENGA [employer] TECH Ot M54.2 CERVICALGIA 09/12/2016 RAFA ALVARENGA [employer] TECH Ot M79.7 FIBROMYALGIA 09/13/2016 RAFA ALVARENGA [employer] TECH Ot G89.29 OTHER CHRONIC PAIN 09/13/2016 RAFA ALVARENGA [employer] TECH Ot M43.6 TORTICOLLIS 09/13/2016 RAFA ALVARENGA [employer] TECH Ot M54.2 CERVICALGIA 09/13/2016 RAFA ALVARENGA [employer] MANU[employer]URING TECH Ot M79.7 FIBROMYALGIA 09/19/2016 RAFA ALVARENGA [employer] TECH Ot G89.29 OTHER CHRONIC PAIN 09/19/2016 RAFA ALVARENGA [employer] TECH Ot M43.6 TORTICOLLIS 09/19/2016 RAFA ALVARENGA [employer] TECH Ot M54.2 CERVICALGIA 09/19/2016 RAFA ALVARENGA [employer] TECH Ot M79.7 FIBROMYALGIA 11/28/2016 DANDRE LANCE, ANN [...] 786.59 CHEST PAIN NEC 11/28/2016 RAFA ALVARENGA [employer] TECH Ot F17.210 NICOTINE DEPENDENCE, CIGARETTES, UNCOMPL 11/28/2016 RAFA ALVARENGA [employer] TECH Ot R07.9 CHEST PAIN, UNSPECIFIED 11/28/2016 RAFA ALVARENGA [employer] TECH Ot Z79.899 OTHER HALF-WAY (CURRENT) DRUG THERAPY 11/29/2016 RAFA ALVARENGA [employer] TECH Ot F17.210 NICOTINE DEPENDENCE, CIGARETTES, UNCOMPL 11/29/2016 RAFA ALVARENGA [employer] TECH Ot R07.9 CHEST PAIN, UNSPECIFIED 11/29/2016 ALVARENGARAFA NO [employer] MANU[employer]URING TECH Ot Z79.899 OTHER HOSPITALITY INTERN (CURRENT) DRUG THERAPY 11/30/2016 RAFA ALVARENGA [employer]ING TECH Ot F17.210 NICOTINE DEPENDENCE, CIGARETTES, UNCOMPL 11/30/2016 RAFA ALVARENGA Ashvin [employer] MANU[employer]URING TECH Ot R07.9 CHEST PAIN, UNSPECIFIED 11/30/2016 ALVARENGARAFA NO Ashvin [employer]URING TECH Ot Z79.899 OTHER HOSPITALITY INTERN (CURRENT) DRUG THERAPY 12/02/2016 ANN AMOS MD [...] FATIGUE 12/07/2016 Ot 787.91 DIARRHEA 12/07/2016 JENNA RAGALND MD Ot F17.210 NICOTINE DEPENDENCE, CIGARETTES, UNCOMPL 12/07/2016 JENNA RAGLAND MD Ot M54.5 LOW BACK PAIN 12/07/2016 JENNA RAGLAND MD Ot M62.82 RHABDOMYOLYSIS 12/07/2016 JENNA RAGLAND MD Ot M79.7 FIBROMYALGIA 12/07/2016 JENNA RAGLAND MD Ot R11.2 NAUSEA WITH VOMITING, UNSPECIFIED 12/07/2016 JENNA RAGLAND MD Ot Z79.899 OTHER HALF-WAY (CURRENT) DRUG THERAPY 12/07/2016 Ot 276.51 DEHYDRATION [...] 12/09/2016 JENNA RAGLAND MD Ot Z79.899 OTHER HALF-WAY (CURRENT) DRUG THERAPY 12/11/2016 JENNA RAGLAND MD Ot F17.210 NICOTINE DEPENDENCE, CIGARETTES, UNCOMPL 12/11/2016 JENNA RAGLAND MD Ot M54.5 LOW BACK PAIN 12/11/2016 JENNA RAGLAND MD Ot M62.82 RHABDOMYOLYSIS 12/11/2016 JENNA RAGLAND MD Ot M79.7 FIBROMYALGIA 12/11/2016 ELLYN LANCE, JENNA Perry Ot R11.2 NAUSEA WITH VOMITING, UNSPECIFIED 12/11/2016 ELLYN LANCE, JENNA Perry Ot Z79.899 OTHER HALF-WAY (CURRENT) DRUG THERAPY 12/19/2016 RAFA ALVARENGA [employer]URING TECH Ot F17.210 NICOTINE DEPENDENCE, CIGARETTES, UNCOMPL 12/19/2016 RAFA ALVARENGA [employer] TECH Ot G89.29 OTHER CHRONIC PAIN 12/19/2016 RAFA ALVARENGA [employer] TECH Ot K58.0 IRRITABLE BOWEL SYNDROME WITH DIARRHEA 12/19/2016 RAFA ALVARENGA [employer] TECH Ot R11.0 NAUSEA 12/19/2016 RAFA ALVARENGA [employer] TECH Ot Z79.899 OTHER HOSPITALITY INTERN (CURRENT) DRUG THERAPY 12/25/2016 RAFA ALVARENGA [employer]ING TECH Ot F17.210 NICOTINE DEPENDENCE, CIGARETTES, UNCOMPL 12/25/2016 RAFA ALVARENGA [employer] TECH Ot G89.29 OTHER CHRONIC PAIN 12/25/2016 RAFA ALVARENGA [employer]ING TECH Ot K58.0 IRRITABLE BOWEL SYNDROME WITH DIARRHEA 12/25/2016 RAFA ALVARENGA [employer] TECH Ot R11.0 NAUSEA 12/25/2016 RAFA ALVARENGA [employer] TECH Ot Z79.899 OTHER HALF-WAY (CURRENT) DRUG THERAPY 12/27/2016 MOMO GILBERT Ot M62.82 RHABDOMYOLYSIS 01/23/2017 Ot 789.01 ABDOMINAL PAIN, RIGHT UPPER QUADRANT 01/23/2017 Ot 789.59 OTHER ASCITES 01/23/2017 MARITZA LANCE, PAULINA Lock Ot 305.1 TOBACCO USE DISORDER 01/23/2017 MARITZA LANCE, PAULINA Lock Ot 440.20 ATHEROSCLEROSIS [place] ARTERIES EXTREMIT 01/23/2017 PAULINA SALAS MD Ot [...] 780.79 OTH MALAISE FATIGUE 01/23/2017 DHIRAJ LANCE [facility], ELEUTERIO SOLANO CCDS Ot 786.09 RESPIRATORY ABNORM NEC 01/23/2017 DHIRAJ LANCE FACC, ELEUTERIO SOLANO [facility] Ot 786.59 CHEST PAIN NEC Procedures [...] culture - 12/19/16 12:55 Bacterial urine culture [id number] NRG COLONY COUNT >100,000/ML NRG FTX;REPORTABLE SENSITIVITY [...] test by minimum inhibitory concentration - NRG Complete blood count (CBC) with automated white blood cell (WBC) differential - 02/07/17 07:45 Blood leukocytes automated count (number/volume) 7.2 10*3/ uL 4.3-11.0 Blood erythrocytes automated count (number/volume) 5.29 10*6 /uL 4.35-5.85 Venous blood hemoglobin measurement (mass/volume) 14.4 g/dL 11.5-16.0 Blood hematocrit (volume fraction) 42 % 35-52 Automated erythrocyte mean corpuscular volume 80 [foz_us] 80-99 Automated erythrocyte mean corpuscular hemoglobin (mass per erythrocyte) 27 pg 25-34 Automated erythrocyte mean corpuscular hemoglobin concentration measurement ( mass/volume) 34 g/dL 32-36 Automated erythrocyte distribution width ratio 15.0 % 10.0-14.5 Automated blood platelet count (count/volume) 330 10*3/uL 130-400 Automated blood platelet mean volume measurement 9.5 [foz_us ] 7.4-10.4 Automated blood neutrophils/100 leukocytes 57 % 42-75 Automated blood lymphocytes/100 leukocytes 34 % 12-44 Blood monocytes/100 leukocytes 7 % 0-12 Automated blood eosinophils/100 leukocytes 1 % 0-10 Automated blood basophils/100 leukocytes 1 % 0-10 Blood neutrophils automated count (number/volume) 4.1 10*3 1.8-7.8 Blood lymphocytes automated count (number/volume) 2.5 10*3 1.0-4.0 Blood monocytes automated count (number/volume) 0.5 10*3 0.0-1.0 Automated eosinophil count 0.1 10*3/uL 0.0-0.3 Automated blood basophil count (count/volume) 0.0 10*3/uL 0.0-0.1 Complete urinalysis with reflex to culture - 02/07/17 07:45 Urine color determination YELLOW NRG Urine clarity determination CLEAR NRG Urine pH measurement by test strip 6 5- 9 Specific gravity of urine by test strip 1.020 1.016-1.022 Urine protein assay by test strip, semi-quantitative 1+ NEGATIVE Urine glucose detection by automated test strip NEGATIVE NEGATIVE Erythrocytes detection in urine sediment by light microscopy 1+ NEGATIVE Urine ketones detection by automated test [...] in urine sediment by light microscopy NEGATIVE NRG Complete urinalysis with reflex to culture NO NRG Comprehensive metabolic panel - 02/07/17 07:45 Serum or plasma sodium measurement (moles/volume) 139 mmol/ L 135-145 Serum or plasma potassium measurement (moles/volume) 3.7 mmol/L 3.6-5.0 Serum or plasma chloride measurement (moles/volume) 105 mmol /L 98-107 Carbon dioxide 25 mmol/L 21-32 Serum or plasma anion gap determination (moles/volume) 9 mmol/L 5-14 Serum or plasma urea nitrogen measurement (mass/volume) 14 mg/dL 7-18 Serum or plasma creatinine measurement (mass/volume) 0.85 mg /dL 0.60-1.30 Serum or plasma urea nitrogen/creatinine mass ratio 16 NRG Serum or plasma creatinine measurement with calculation of estimated glomerular filtration rate > NRG Serum or plasma glucose measurement (mass/volume) 101 mg/dL 70-105 Serum or plasma calcium measurement (mass/volume) 9.6 mg/dL 8.5-10.1 Serum or plasma total bilirubin measurement (mass/volume) 0.3 mg/dL 0.1-1.0 Serum or plasma alkaline phosphatase measurement (enzymatic activity/volume) 147 U/L 40-136 Serum or plasma aspartate aminotransferase measurement (enzymatic activity/ volume) 25 U/L 5-34 Serum or plasma alanine aminotransferase measurement (enzymatic activity/volume ) 56 U/L 0-55 Serum or plasma protein measurement (mass/volume) 8.2 g/dL 6.4-8.2 Serum or plasma albumin measurement (mass/volume) 4.2 g/dL 3.2-4.5 Encounters ACCT No. Visit Date/Time Discharge Status Pt. Type Provider Facility Loc./Unit Complaint [id number] 02/07/2017 07:20:00 2016 09:16:00 DIS Emergency SHERYL LANCE, TIFFANY Anthony [facility] ER STOMACH ACHE/DIARRHEA/HEADACHE [id number] 01/23/2017 10:10:00 2016 12:05:00 DIS Emergency RAFA ALVARENGA APRN [facility] ER SWOLLEN NECK/SORE THROAT [id number] 12/19/2016 11:37:00 2016 14:02:00 DIS Emergency RAFA ALVARENGA APRN [facility] ER ABDOMINAL PAIN [id number] 12/07/2016 08:05:00 2016 10:00:00 DIS Emergency JENNA RAGLAND MD [facility] ER BACK PAIN [id number] 12/02/2016 13:51:00 2016 19:12:00 DIS Emergency JENNA RAGLAND MD [facility] ER BACK/NECK PAIN [id number] 11/28/2016 20:13:00 2016 21:20:00 DIS Emergency RAFA ALVARENGA APRN [facility] ER CP [id number] 09/12/2016 10:23:00 2016 12:18:00 DIS Emergency RAFA ALVARENGA APRN [facility] ER NECK PAIN/SWELLING [id number] 01/04/2015 08:21:00 2014 11:58:00 DIS Outpatient PAULINA SALAS MD [facility] REHAB B HIP,LEG AND FOOT PAIN; MUSCLOSKELETAL PAIN;WALKER [id number] 12/29/2014 09:44:00 2014 23:59:59 CLS Outpatient DHIRAJ LANCE FACC, ELEUTERIO SOLANO CCDS [facility] CARD CP DYSPNEA [id number] 12/26/2014 11:56:00 2014 14:01:00 DIS Emergency SANAM FRANK DO [facility] ER RETAINING FLUID [id number] 09/08/2014 14:21:00 2014 16:55:00 DIS Emergency SHERYL LANCE, TIFFANY Anthony [facility] ER DIZZINESS/CHEST PAIN [id number] 06/17/2014 10:36:00 2013 23:59:59 CLS Outpatient ANN AMOS MD [facility] RAD INCONTINENCE [id number] 06/07/2014 14:01:00 2013 23:59:59 CLS Outpatient PAULINA SALAS MD [facility] RAD BILAT LEG PAIN, CRAMPING [id number] 06/06/2014 06:28:00 2013 08:20:00 DIS Emergency ELLYN LANCE, JENNA Perry [facility] ER [id number] 11/15/2013 13:01:00 2013 08:30:00 DIS Inpatient PAULINA SALAS MD [facility] 4TH RT LEG AND CALF PAIN, INTRACTIBLE MIGRAIN [id number] 10/01/2013 15:36:00 2013 18:25:00 DIS Emergency [id number] 09/26/2013 12:25:00 2013 15:52:00 DIS Emergency [id number] 09/21/2013 10:31:00 2013 12:20:00 DIS Emergency [id number] 07/29/2013 11:41:00 2012 15:00:00 DIS Outpatient [id number] 07/17/2013 15:24:00 2012 18:06:00 DIS Emergency TIRSO MONDRAGON [facility] ER [id number] 06/29/2013 10:19:00 2012 23:59:59 CLS Outpatient [id number] 06/16/2013 17:10:00 2012 19:10:00 DIS Emergency [id number] 05/27/2013 11:46:00 2012 15:30:00 DIS Outpatient [id number] 03/17/2013 08:16:00 2012 11:13:00 DIS Outpatient [id number] 03/24/2013 09:43:00 2012 11:26:00 DIS Outpatient [id number] 12/25/2012 12:22:00 2012 23:59:59 CLS Outpatient [id number] 12/24/2012 14:54:00 2012 23:59:59 CLS Outpatient [id number] 01/20/2017 14:36:00 PEN Preadbelinda LEE MD, INGRID Melendez [facility] RAD R22.1 SWELLING IN LT NECK [id number] 12/07/2016 08:24:00 Document Registration [id number] 12/04/2016 13:04:00 ACT Outpatient MOMO GILBERT [facility] LAB M62.82 [id number] 12/02/2014 08:26:00 Document Registration [id number] 12/02/2014 08:26:00 Document Registration [id number] 12/02/2014 08:26:00 Document Registration [id number] 12/02/2014 08:26:00 Document Registration [id number] 12/02/2014 08:26:00 Document Registration [id number] 12/02/2014 08:26:00 Document Registration [id number] 12/02/2014 08:26:00 Document Registration [id number] 10/24/2014 05:15:00 Document Registration [id number] 07/30/2012 00:00:00 Document Registration [id number] 05/18/2012 13:40:00 Document Registration [id number] 05/15/2012 11:30:00 Document Registration [id number] 04/01/2012 10:33:00 Document Registration [id number] 09/27/2011 14:15:00 Document Registration [id number] 09/27/2011 11:55:00 Document Registration [id number] 05/17/2010 05:55:00 Document Registration [id number] 05/04/2010 09:40:00 Document Registration [id number] 04/20/2010 11:00:00 Document Registration [id number] 04/18/2010 08:54:00 Document Registration [id number] 02/26/2010 09:22:00 Document Registration [id number] 12/17/2009 11:03:00 Document Registration [id number] 08/14/2009 00:00:00 Document Registration [id number] 06/15/2009 10:51:00 Document Registration
== END 2017-02-12 13:43 | disposition left against medical advice (07) ==
LOC: EDUNIT# 11:43 → ER 11:44
DX: R10.9 Unspecified abdominal pain (principal)
CPT/HCPCS: 99281

== ENCOUNTER → 2017-02-12 | Outpatient (CLI) | payer MEDICARE, MEDICAID ==
[~2017-02-12] MED LIST changes: +NABU750T PO
[2017-02-12 14:58] LABS: BASOPHILS # (AUTO) 0.1 10^3/uL (0.0-0.1); BASOPHILS % (AUTO) 1 % (0-10); EOSINOPHILS # (AUTO) 0.1 10^3/uL (0.0-0.3); EOSINOPHILS % (AUTO) 1 % (0-10); LYMPHOCYTES # (AUTO) 3.3 X 10^3 (1.0-4.0); LYMPHOCYTES % (AUTO) 40 % (12-44); MEAN CORPUSCULAR HEMOGLOBIN 27 PG (25-34); MEAN CORPUSCULAR HGB CONC 34 G/DL (32-36); MEAN CORPUSCULAR VOLUME 80 FL (80-99); MEAN PLATELET VOLUME 9.6 FL (7.4-10.4); MONOCYTES # (AUTO) 0.5 X 10^3 (0.0-1.0); MONOCYTES % (AUTO) 6 % (0-12); NEUTROPHILS # (AUTO) 4.2 X 10^3 (1.8-7.8); NEUTROPHILS % (AUTO) 52 % (42-75); PLATELET COUNT 346 10^3/uL (130-400); RED BLOOD COUNT 5.01 10^6/uL (4.35-5.85); RED CELL DISTRIBUTION WIDTH 15.1 % (10.0-14.5); WHITE BLOOD COUNT 8.1 10^3/uL (4.3-11.0)
[2017-02-12 15:15] LABS: ALANINE AMINOTRANSFERASE 51 U/L (0-55); ALBUMIN 4.2 GM/DL (3.2-4.5); ANION GAP 9 MMOL/L (5-14); ASPARTATE AMINO TRANSFERASE 24 U/L (5-34); BILIRUBIN,TOTAL 0.3 MG/DL (0.1-1.0); BLOOD UREA NITROGEN 18 MG/DL (7-18); BUN/CREATININE RATIO 21; CALCIUM 9.4 MG/DL (8.5-10.1); CARBON DIOXIDE 27 MMOL/L (21-32); CHLORIDE 106 MMOL/L (98-107); CREATININE SERUM 0.85 MG/DL (0.60-1.30); GFR ESTIMATED > 60; GLUCOSE 93 MG/DL (70-105); POTASSIUM 3.6 MMOL/L (3.6-5.0); SODIUM 142 MMOL/L (135-145); TOTAL PROTEIN 8.1 GM/DL (6.4-8.2)
--- NOTE | 2017-02-12 15:53 | Diagnostic Imaging Report ---
EXAMINATION: Liver sonogram. INDICATION: Right upper quadrant pain. FINDINGS: The pancreas is obscured by bowel gas. The liver is fairly homogeneous with no focal lesion. There is hepatopetal flow in the portal vein seen. The CBD is obscured by bowel gas. The right kidney is 11.9 cm in length with no hydronephrosis or focal lesion. There is no focal fluid collection in the upper right quadrant identified. The gallbladder has been surgically removed. IMPRESSION: No definite abnormality. Dictated by: Dictated on workstation # [id number]
== END ==
LOC: RAD 14:43
PROVIDERS: ATTEND Family Medicine
DX: R10.11 Right upper quadrant pain (principal); Z90.49 Acquired absence of other specified parts of digestive tract
CPT/HCPCS: 36415; 76705; 80053; 85025

== ENCOUNTER 2017-02-18 14:33 | Emergency (ER) | payer MEDICARE, MEDICAID ==
[~2017-02-18] VITALS: Ht 177.8 cm; Wt 101.6 kg
--- NOTE | 2017-02-18 15:21 | ED General ---
General Chief Complaint: Dental Problems/Pain Stated Complaint: JAW SWOLLEN/STOMACH ACHE Nursing Triage Note: PT STATES HER JAW IS SWOLLEN AND HAS BEEN FOR 3 DAYS. PT ALSO COMPLAINS OF STOMACH PAIN FOR APPROX 3 WEEKS. Nursing Sepsis Screen: No Definite Risk Source of Information: Patient Exam Limitations: No Limitations (TIRSO EDMONDS) History of Present Illness Time Seen by Provider: 15:21 Initial Comments 36-year-old female patient presents to the emergency department with complaints of 3 week onset of generalized abdominal pain and bloating. Patient does report 3 day onset of lower jaw swelling and pain. Patient reports difficulty with eating and drinking at this time. Patient states "No one will listen to me. " Timing/Duration: Getting Worse, Other (3 wk onset of abdominal pain. 3 day onset of jaw pain.) Modifying Factors: worse with Eating (abdominal pain worse with eating), worse with Medication, worse with Other (worse palpation) (TIRSO EDMONDS) Allergies and Home Medications Allergies Coded Allergies: pregabalin (Verified Adverse Reaction, Intermediate, 12/07/16) Rhabdomyolysis meperidine (Verified Adverse Reaction, Mild, NAUSEA, 12/07/16) morphine (Verified Adverse Reaction, Mild, NAUSEA, 09/13/07) Uncoded Allergies: STEROID PILLS (Allergy, Unknown, 11/15/13) Home Medications Alprazolam 1 Mg Tablet, #56 (Reported) Cephalexin 500 Mg Capsule, 500 MG PO QID for 7 Days, (Reported) Cyanocobalamin 1,000 Mcg/Ml Vial, 1,000 MCG IJ WEEKLY, (Reported) Cyclobenzaprine HCl 10 Mg Tablet, #60 (Reported) Dicyclomine HCl 20 Mg Tablet, 20 MG PO ACHS, #30 Prescribed by: RAFA ALVARENGA on 12/19/16 1251 Estradiol 2 Mg Tablet, #21 (Reported) Furosemide 20 Mg Tablet, 20 MG PO DAILY, (Reported) Methylprednisolone Acetate 80 Mg/Ml Vial, 160 MG IJ MONTHLY, (Reported) Metronidazole 500 Mg Tablet, 500 MG PO BID for 7 Days, (Reported) Nabumetone 750 Mg Tablet, 750 MG PO BID, #14 Ref 1 Prescribed by: EMILIA MINOR on 02/18/17 1753 Naproxen 500 Mg Tablet, 500 MG PO BID PRN for PAIN, #20 Prescribed by: RAFA ALVARENGA on 09/12/16 1058 Naproxen 500 Mg Tablet, #60 (Reported) Ondansetron 4 Mg Tab.rapdis, 4 MG SL Q4H PRN for NAUSEA/VOMITING-1ST LINE, #10 Prescribed by: JENNA MCDANIELS on 12/07/16 0930 Sulfamethoxazole/Trimethoprim 1 Each Tablet, #14 (Reported) [Flexeril] , 5 MG PO TID PRN for PAIN, #20 Prescribed by: RAFA ALVARENGA on 09/12/16 1058 Constitutional: No chills, No dizziness, No fever, malaise EENTM: see HPI, No ear pain, No hoarseness, No nose congestion, No throat pain Respiratory: No cough, No short of breath Cardiovascular: No chest pain, No palpitations Gastrointestinal: see HPI, abdominal pain, constipation ((last BM this AM)), No diarrhea, loss of appetite, nausea, No vomiting Genitourinary: No decreased output, No dysuria, No frequency, No hematuria, No pain Musculoskeletal: no symptoms reported Skin: no symptoms reported Psychiatric/Neurological: Headache, Denies Numbness, Denies Paresthesia, Denies Tingling, Denies Weakness Immunological/Allergic: no symptoms reported (TIRSO EDMONDS) All Other Systems Reviewed Negative Unless Noted: Yes (Negative excepted noted.) (TIRSO EDMONDS) Past Eaqejam-Kqqnxm-Lowndw Hx Patient Social History Alcohol Use: Denies Use Recreational Drug Use: No Smoking Status: Current Everyday Smoker Type Used: Cigarettes 2nd Hand Smoke Exposure: Yes Recent Foreign Travel: No Contact w/Someone Who Travel: No Recent Infectious Disease Expo: No Recent Hopitalizations: No (TIRSO EDMONDS) Immunizations Up To Date Tetanus Booster (TDap): Unknown Date of Influenza Vaccine: May 15, 2016 (TIRSO EDMONDS) Seasonal Allergies Seasonal Allergies: Yes (TIRSO EDMONDS) Surgeries HX Surgeries: Yes (TEAR REPAIR AFTER VAG , DX LAP FOR ENDOMETRIOSIS/ OVARIAN CYSTS,EGD) Surgeries: Abdominal, Appendectomy, Gallbladder, Hysterectomy, Oophorectomy (TIRSO EDMONDS) Respiratory Hx Respiratory Disorders: No (TIRSO EDMONDS) Cardiovascular Hx Cardiac Disorders: No (TIRSO EDMONDS) Neurological Hx Neurological Disorders: Yes (CHRONIC FATIGUE SYNDROME, FIBROMYALGIA) Neurological Disorders: Headaches /Migraines (TIRSO EDMONDS) 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 System Hx 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 Disorders: Yes Sexually Transmitted Disease: No Female 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 Disorders: 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, 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 (TIRSO EDMONDS) Genitourinary Hx Genitourinary Disorders: No (TIRSO EDMONDS) Gastrointestinal Hx Gastrointestinal Disorders: Yes (CHRONIC NAUSEA) Gastrointestinal Disorders: Gastroesophageal Reflux, Diverticulosis (TIRSO EDMONDS) Musculoskeletal Hx Musculoskeletal Disorders: Yes (CHRONIC FATIGUE SYNDROME, CHRONIC NECK PAIN AND GENERALIZED PAIN ) Musculoskeletal Disorders: Fibromyalgia, Chronic Back Pain (TIRSO EDMONDS) Endocrine Hx Endocrine Disorders: Yes (STATES "HYPOGLYCEMIA") (TIRSO EDMONDS) HEENT HX ENT Disorders: No (TIRSO EDMONDS) Cancer Hx Cancer: No (TIRSO EDMONDS) Psychosocial Hx Psychiatric Problems: Yes Behavioral Health Disorders: Anxiety, Depression (TIRSO EDMONDS) Integumentary HX Skin/Integumentary Disorder: No (TIRSO EDMONDS) Blood Transfusions Hx Blood Disorders: No (TIRSO EDMONDS) Reviewed Nursing Assessment Reviewed/Agree w Nursing PMH: Yes (TIRSO EDMONDS) Family Medical History Significant Family History: No Pertinent Family Hx Family Medial History: Cancer Cataract Family history: Allergy Family history: Arthritis Family history: Asthma Family history: Breast disease Family history: Diabetes mellitus Family history: Hypertension Family history: Osteoporosis Family history: Thyroid disorder Headache Heart disease Hypercholesterolemia Psychotic disorder Seizure disorder No Family History of: Abdominal aortic aneurysm [place]'s disease Alcoholism Aphasia Cancer of colon Chest pain Congenital heart disease Congestive heart failure Cystic fibrosis Dementia Dysphagia Family history: Alzheimer's disease Family history: Cardiovascular disease Family history: Coronary thrombosis Family history: Gastrointestinal disease Family history: Glaucoma Hearing loss Hereditary disease History of - anemia History of - disorder History of - respiratory disease History of drug abuse Human immunodeficiency virus (HIV) seropositivity Infertile Kidney disease Malignant neoplasm of lung Myocardial infarction Parkinson's disease Prostate cancer Stroke Tuberculosis Visual impairment (TIRSO EDMONDS) Family Medial History: Cancer Cataract Family history: Allergy Family history: Arthritis Family history: Asthma Family history: Breast disease Family history: Diabetes mellitus Family history: Hypertension Family history: Osteoporosis Family history: Thyroid disorder Headache Heart disease Hypercholesterolemia Psychotic disorder Seizure disorder No Family History of: Abdominal aortic aneurysm [place]'s disease Alcoholism Aphasia Cancer of colon Chest pain Congenital heart disease Congestive heart failure Cystic fibrosis Dementia Dysphagia Family history: Alzheimer's disease Family history: Cardiovascular disease Family history: Coronary thrombosis Family history: Gastrointestinal disease Family history: Glaucoma Hearing loss Hereditary disease History of - anemia History of - disorder History of - respiratory disease History of drug abuse Human immunodeficiency virus (HIV) seropositivity Infertile Kidney disease Malignant neoplasm of lung Myocardial infarction Parkinson's disease Prostate cancer Stroke Tuberculosis Visual impairment (EMILIA MINOR) Physical Exam Vital Signs Vital Sign - Last 12Hours 02/18/17 15:11 Temp 97.9 Pulse 83 Resp 20 B/P (MAP) 130/87 Pulse Ox 94 O2 Delivery Room Air (EMILIA MINOR) Vital Signs Capillary Refill : Less Than 3 Seconds (TIRSO EDMONDS) General Appearance: No Apparent Distress, WD/WN HEENT: PERRL/EOMI, TMs Normal, Other (patient ttp over the bilateral mandible w /o appreciable swelling. No erythema or warmth noted. Patient unable to open mouth more than approximately 1-2 cm. Patient is able to speak clearly and swallow her own secretions.) Neck: Full Range of Motion, Normal Inspection, Non Tender, Supple Respiratory: Lungs Clear, Normal Breath Sounds, No Respiratory Distress Cardiovascular: Regular Rate, Rhythm, No Edema, No Murmur, Normal Peripheral Pulses Gastrointestinal: Soft, Abnormal Bowel Sounds, Distended (mild distention, but soft.), Guarding, No Rebound Back: Normal Inspection Extremity: Normal Capillary Refill, No Pedal Edema Neurologic/Psychiatric: Alert, Oriented x3, Normal Mood/Affect Skin: Normal Color, Warm/Dry (TIRSO EDMONDS) Progress/Results/Core Measures Results/Orders Lab Results Laboratory Tests Test 02/18/17 15:37 02/18/17 16:55 Range/Units White Blood Count 8.4 4.3-11.0 10^3/uL Red Blood Count 4.74 4.35-5.85 10^6/uL Hemoglobin 12.8 11.5-16.0 G/DL Hematocrit 38 35-52 % Mean Corpuscular Volume 81 80-99 FL Mean Corpuscular Hemoglobin 27 25-34 PG Mean Corpuscular Hemoglobin Concent 34 32-36 G/DL Red Cell Distribution Width 15.4 H 10.0-14.5 % Platelet Count 324 130-400 10^3/uL Mean Platelet Volume 9.9 7.4-10.4 FL Neutrophils (%) (Auto) 57 42-75 % Lymphocytes (%) (Auto) 35 12-44 % Monocytes (%) (Auto) 6 0-12 % Eosinophils (%) (Auto) 1 0-10 % Basophils (%) (Auto) 0 0-10 % Neutrophils # (Auto) 4.8 1.8-7.8 X 10^3 Lymphocytes # (Auto) 2.9 1.0-4.0 X 10^3 Monocytes # (Auto) 0.5 0.0-1.0 X 10^3 Eosinophils # (Auto) 0.1 0.0-0.3 10^3/uL Basophils # (Auto) 0.0 0.0-0.1 10^3/uL Urine Color YELLOW Urine Clarity CLEAR Urine pH 6 5-9 Urine Specific [place] 1.005 L 1.016-1.022 Urine Protein NEGATIVE NEGATIVE Urine Glucose (UA) NEGATIVE NEGATIVE Urine Ketones NEGATIVE NEGATIVE Urine Nitrite NEGATIVE NEGATIVE Urine Bilirubin NEGATIVE NEGATIVE Urine Urobilinogen NORMAL NORMAL MG/DL Urine Leukocyte Esterase NEGATIVE NEGATIVE Urine RBC (Auto) NEGATIVE NEGATIVE Urine RBC NONE /HPF Urine WBC NONE /HPF Urine Squamous Epithelial Cells 5-10 /HPF Urine Crystals NONE /LPF Urine Bacteria TRACE /HPF Urine Casts NONE /LPF Urine Mucus NEGATIVE /LPF Urine Culture Indicated NO Sodium Level 142 135-145 MMOL/L Potassium Level 3.4 L 3.6-5.0 MMOL/L Chloride Level 112 H 98-107 MMOL/L Carbon Dioxide Level 23 21-32 MMOL/L Anion Gap 7 5-14 MMOL/L Blood Urea Nitrogen 10 7-18 MG/DL Creatinine 0.76 0.60-1.30 MG/DL Estimat Glomerular Filtration Rate > 60 BUN/Creatinine Ratio 13 Glucose Level 75 70-105 MG/DL Calcium Level 8.2 L 8.5-10.1 MG/DL Total Bilirubin 0.2 0.1-1.0 MG/DL Aspartate Amino Transf (AST/SGOT) 18 5-34 U/L Alanine Aminotransferase (ALT/SGPT) 51 0-55 U/L Alkaline Phosphatase 125 40-136 U/L Total Protein 6.3 L 6.4-8.2 GM/DL Albumin 3.3 3.2-4.5 GM/DL Lipase 4 L 8-78 U/L (EMILIA MINOR) My Orders Orders - EMILIA MINOR Hydromorphone Injection (Dilaudid Inject (02/18/17 16:34) (EMILIA MINOR) Medications Given in ED Current Medications Medications Dose Ordered Sig/Cali Route Start Time Stop Time Status Last Admin Dose Admin Ondansetron HCl 4 mg ONCE ONCE IVP 02/18/17 15:30 02/18/17 15:31 DC 02/18/17 15:35 4 MG Sodium Chloride 1,000 ml @ 0 mls/hr Q0M ONCE IV 02/18/17 15:27 02/18/17 15:29 DC 02/18/17 15:38 1,000 MLS/HR (EMILIA MINOR) Vital Signs/I&O Vital Sign - Last 12Hours 02/18/17 02/18/17 15:11 18:08 Temp 97.9 98.1 Pulse 83 80 Resp 20 20 B/P (MAP) 130/87 Pulse Ox 94 97 O2 Delivery Room Air Room Air (EMILIA MINOR) Blood Pressure Mean: 101 Progress Note : Progress Note 1630 Assumed care for Tirso Edmonds PA-C. Patient reports minimal improvement in her pain since taking the Toradol. Dilaudid 1 mg IV for pain. 1735 patient reports improvement in her pain. Slight improvement of motion in the TMJ. discussed referral to maxillofacial surgeon or ENT. She will consider this. She does report improvement in her abdominal pain and nausea. (EMILIA MINOR) Departure Communication Progress Notes patient seen and evaluated. We will obtain labs. Toradol and norflex to be given for pain related to the TMJ and abdominal pain. We will also give zofran and 1 liter NS as patient has had a poor appetite and fluid intake today. 1630 Patient care transferred to Emilia Minor APRN. (TIRSO EDMONDS) Impression Impression: Primary Impression: TMJ (temporomandibular joint disorder) Disposition: 01 HOME, SELF-CARE Condition: Stable Departure-Patient Inst. Decision time for Depature: 17:30 (EMILIA MINOR) Referrals: INGRID LEE MD (PCP/Family) Primary Care Physician Patient Instructions: Temporomandibular Joint (TMJ) Disorders (DC) Add. Discharge Instructions: stop naproxen and ibuprofen, start Relafen prescription. Follow-up with Dr. Lee if continued symptoms. Consider evaluation by Dr. Jones or Dr. Solis. Warm moist compresses to cheeks as needed. Return to emergency department for increased pain, fevers, new problems or concerns. All discharge instructions reviewed with patient and/or family. Voiced understanding. Scripts Nabumetone (Nabumetone) 750 Mg Tablet 750 MG PO BID, #14 TAB 1 Refill Prov: EMILIA MINOR 02/18/17 Copy Copies To 1: INGRID LEE MD, GRETCHEN L PA Feb 18, 2017 15:21 EMILIA MINOR Feb 18, 2017 17:31
[2017-02-18] MEDS ORDERED: KETOROLAC 30 MG/ML VIAL IVP STA (15:27)
[2017-02-18] MEDS ORDERED: ORPHENADRINE 60 MG/2 ML (NORFLEX) AMP IV STA (15:27)
[2017-02-18] MEDS ORDERED: NS IV 1000 ML 1,000 ML IV ONE (15:27)
[2017-02-18] MEDS ORDERED: ONDANSETRON 4 MG/2 ML (SDV) Z0FRAN IVP ONE (15:30)
[2017-02-18 15:48] LABS: BASOPHILS % (AUTO) 0 % (0-10); EOSINOPHILS # (AUTO) 0.1 10^3/uL (0.0-0.3); EOSINOPHILS % (AUTO) 1 % (0-10); LYMPHOCYTES # (AUTO) 2.9 X 10^3 (1.0-4.0); LYMPHOCYTES % (AUTO) 35 % (12-44); MEAN CORPUSCULAR HEMOGLOBIN 27 PG (25-34); MEAN CORPUSCULAR HGB CONC 34 G/DL (32-36); MEAN CORPUSCULAR VOLUME 81 FL (80-99); MEAN PLATELET VOLUME 9.9 FL (7.4-10.4); MONOCYTES # (AUTO) 0.5 X 10^3 (0.0-1.0); MONOCYTES % (AUTO) 6 % (0-12); NEUTROPHILS # (AUTO) 4.8 X 10^3 (1.8-7.8); NEUTROPHILS % (AUTO) 57 % (42-75); PLATELET COUNT 324 10^3/uL (130-400); RED BLOOD COUNT 4.74 10^6/uL (4.35-5.85); RED CELL DISTRIBUTION WIDTH 15.4 % (10.0-14.5); WHITE BLOOD COUNT 8.4 10^3/uL (4.3-11.0)
[2017-02-18] MEDS ORDERED: HYDROmorphone (DILAUDID) 2 MG/ML VIAL IVP STA (16:34)
[2017-02-18 17:07] LABS: BILIRUBIN,URINE NEGATIVE (NEGATIVE); KETONES,URINE NEGATIVE (NEGATIVE); LEUKOCYTE ESTERASE ,URINE NEGATIVE (NEGATIVE); NITRITE,URINE NEGATIVE (NEGATIVE); PH,URINE 6 (5-9); PROTEIN,URINE NEGATIVE (NEGATIVE); UROBILINOGEN,URINE NORMAL (NORMAL)
[2017-02-18 17:28] LABS: ALANINE AMINOTRANSFERASE 51 U/L (0-55); ALBUMIN 3.3 GM/DL (3.2-4.5); ANION GAP 7 MMOL/L (5-14); ASPARTATE AMINO TRANSFERASE 18 U/L (5-34); BILIRUBIN,TOTAL 0.2 MG/DL (0.1-1.0); BLOOD UREA NITROGEN 10 MG/DL (7-18); BUN/CREATININE RATIO 13; CALCIUM 8.2 MG/DL (8.5-10.1); CARBON DIOXIDE 23 MMOL/L (21-32); CHLORIDE 112 MMOL/L (98-107); CREATININE SERUM 0.76 MG/DL (0.60-1.30); GFR ESTIMATED > 60; GLUCOSE 75 MG/DL (70-105); LIPASE 4 U/L (8-78); POTASSIUM 3.4 MMOL/L (3.6-5.0); SODIUM 142 MMOL/L (135-145); TOTAL PROTEIN 6.3 GM/DL (6.4-8.2)
[2017-02-18] MEDS ORDERED: NABU750T PO (17:53)
[2017-02-18 18:08] VITALS: BP 123/88
--- OUTSIDE RECORDS SUMMARY | 2017-02-18 21:16 | XMS REPORT | Continuity of Care Document ---
Author Author [facility] Organization [facility] Address Unknown Phone Unavailable Allergies Active Description Code Type Severity Reaction Onset Reported/Identified Relationship to Patient Clinical Status Yes morphine [id number] Drug Allergy Mild NAUSEA 09/13/2007 Yes STEROID PILLS STEROID PILLS Unknown N/A 11/15/2013 Yes pregabalin [id number] Drug Allergy Moderate N/A 12/07/2016 Yes meperidine [id number] Drug Allergy Mild NAUSEA 12/07/2016 Medications Problems [...] 07/17/2013 TIRSO MONDRAGON Ot 787.02 07/17/2013 TIRSO MONDRAOGN Ot 789.00 11/17/2013 MARITZA LANCE, PAULINA Lock [...] PAULINA Lock Ot 719.45 12/02/2014 MARITZA LANCE, [facility] Ot 729.1 12/02/2014 MARITZA LANCE, [facility] Ot 729.5 12/02/2014 MARITZA LANCE, [facility] Ot 782.3 12/02/2014 MARITZA LANCE, [facility] Ot 784.0 12/02/2014 MARITZA LANCE, PAULINA J Ot V57.1 12/02/2014 MARITZA LANCE, [facility] Ot 719.45 12/02/2014 MARITZA LANCE, PAULINA J Ot 729.1 12/02/2014 MARITZA LANCE, PAULINA J Ot 729.5 12/02/2014 MARITZA LANCE, [facility] Ot 782.3 12/02/2014 MARITZA LANCE, PAULINA J Ot 784.0 12/02/2014 MARITZA LANCE, PAULINA J Ot V57.1 12/02/2014 MARITZA LANCE, PAULINA J Ot 719.45 12/02/2014 MARITZA LANCE, PAULINA J Ot 729.1 12/02/2014 MARITZA LANCE, PAULINA J Ot 729.5 12/02/2014 MARITZA LANCE, PAULINA J Ot 782.3 12/02/2014 MARITZA LNACE, PAULINA J Ot 784.0 12/02/2014 MARITZA LANCE, [...] PAULINA J Ot 729.1 01/09/2015 MARITZA LANCE, [facility] Ot 729.5 01/09/2015 MARITZA LANCE, PAULINA J Ot 782.3 01/09/2015 MARITZA LANCE, PAULINA J Ot 784.0 01/09/2015 MARITZA LANCE, [facility] Ot V57.1 01/09/2015 MARITZA LANCE, PAULINA J Ot 719.45 01/09/2015 MARITZA LANCE, PAULINA J Ot 729.1 01/09/2015 MARITZA LANCE, PAULINA J Ot 729.5 01/09/2015 MARITZA LANCE, PAULINA J Ot 782.3 01/09/2015 MARITZA LANCE, PAULINA J Ot 784.0 01/09/2015 MARITZA LANCE, PAULINA J Ot V57.1 01/09/2015 MARITZA LANCE, PAULINA J Ot 719.45 01/09/2015 MARITZA LANCE, PAULINA J Ot 729.1 01/09/2015 MARITZA LANCE, [facility] Ot 729.5 01/09/2015 MARITZA LANCE, PAULINA [...] FACP CCDS Ot 786.59 05/16/2015 DHIRAJ LANCE [facility], ALI FACP CCDS Ot 305.1 05/16/2015 [...] MARITZA LANCE, PAULINA Lock Ot 440.20 ATHEROSCLEROSIS [place] ARTERIES EXTREMIT 09/12/2016 PAULINA SALAS MD Ot [...] G89.29 OTHER CHRONIC PAIN 09/12/2016 RAFA ALVARENGA TOWER OBSERVER Ot M43.6 TORTICOLLIS 09/12/2016 RAFA ALVARENGA TOWER OBSERVER Ot M54.2 CERVICALGIA 09/12/2016 RAFA ALVARENGA TOWER OBSERVER Ot M79.7 FIBROMYALGIA 09/13/2016 RAFA ALVARENGA TOWER OBSERVER Ot G89.29 OTHER CHRONIC PAIN 09/13/2016 RAFA ALVARENGA TOWER OBSERVER Ot M43.6 TORTICOLLIS 09/13/2016 RAFA ALVARENGA TOWER OBSERVER Ot M54.2 CERVICALGIA 09/13/2016 RAFA ALVARENGA TOWER OBSERVER Ot M79.7 FIBROMYALGIA 09/19/2016 RAFA ALVARENGA TOWER OBSERVER Ot G89.29 OTHER CHRONIC PAIN 09/19/2016 RAFA ALVARENGA TOWER OBSERVER Ot M43.6 TORTICOLLIS 09/19/2016 RAFA ALVARENGA TOWER OBSERVER Ot M54.2 CERVICALGIA 09/19/2016 RAFA ALVARENGA TOWER OBSERVER Ot M79.7 FIBROMYALGIA 11/28/2016 DANDRE LANCE, ANN [...] 786.59 CHEST PAIN NEC 11/28/2016 RAFA ALVARENGA TOWER OBSERVER Ot F17.210 NICOTINE DEPENDENCE, CIGARETTES, UNCOMPL 11/28/2016 RAFA ALVARENGA TOWER OBSERVER Ot R07.9 CHEST PAIN, UNSPECIFIED 11/28/2016 RAFA ALVARENGA TOWER OBSERVER Ot Z79.899 OTHER MCC (CURRENT) DRUG THERAPY 11/29/2016 RAFA ALVARENGA TOWER OBSERVER Ot F17.210 NICOTINE DEPENDENCE, CIGARETTES, UNCOMPL 11/29/2016 RAFA ALVARENGA TOWER OBSERVER Ot R07.9 CHEST PAIN, UNSPECIFIED 11/29/2016 ALVARENGARAFA NO TOWER OBSERVER Ot Z79.899 OTHER CVT RN (CURRENT) DRUG THERAPY 11/30/2016 RAFA ALVARENGA TOWER OBSERVER Ot F17.210 NICOTINE DEPENDENCE, CIGARETTES, UNCOMPL 11/30/2016 RAFA ALVARENGA Ashvin TOWER OBSERVER Ot R07.9 CHEST PAIN, UNSPECIFIED 11/30/2016 ALVARENGARAFA NO Ashvin TOWER OBSERVER Ot Z79.899 OTHER CVT RN (CURRENT) DRUG THERAPY 12/02/2016 ANN AMOS MD [...] F17.210 NICOTINE DEPENDENCE, CIGARETTES, UNCOMPL 12/07/2016 JENNA RAGLADN MD Ot M54.5 LOW BACK PAIN 12/07/2016 JENNA RAGLAND MD Ot M62.82 RHABDOMYOLYSIS 12/07/2016 JENNA RAGLAND MD Ot M79.7 FIBROMYALGIA 12/07/2016 JENNA RAGLAND MD Ot R11.2 NAUSEA WITH VOMITING, UNSPECIFIED 12/07/2016 JENNA RAGLAND MD Ot Z79.899 OTHER MCC (CURRENT) DRUG THERAPY 12/07/2016 Ot 276.51 DEHYDRATION [...] 12/09/2016 JENNA RAGLAND MD Ot Z79.899 OTHER MCC (CURRENT) DRUG THERAPY 12/11/2016 JENNA RAGLAND MD Ot F17.210 NICOTINE DEPENDENCE, CIGARETTES, UNCOMPL 12/11/2016 JENNA RAGLAND MD Ot M54.5 LOW BACK PAIN 12/11/2016 JENNA RAGLAND MD Ot M62.82 RHABDOMYOLYSIS 12/11/2016 JENNA RAGLAND MD Ot M79.7 FIBROMYALGIA 12/11/2016 ELLYN LANCE, JENNA Perry Ot R11.2 NAUSEA WITH VOMITING, UNSPECIFIED 12/11/2016 ELLYN LANCE, JENNA Perry Ot Z79.899 OTHER MCC (CURRENT) DRUG THERAPY 12/19/2016 RAFA ALVARENGA TOWER OBSERVER Ot F17.210 NICOTINE DEPENDENCE, CIGARETTES, UNCOMPL 12/19/2016 RAFA ALVARENGA TOWER OBSERVER Ot G89.29 OTHER CHRONIC PAIN 12/19/2016 RAFA ALVARENGA TOWER OBSERVER Ot K58.0 IRRITABLE BOWEL SYNDROME WITH DIARRHEA 12/19/2016 RAFA ALVARENGA TOWER OBSERVER Ot R11.0 NAUSEA 12/19/2016 RAFA ALVARENGA TOWER OBSERVER Ot Z79.899 OTHER CVT RN (CURRENT) DRUG THERAPY 12/25/2016 RAFA ALVARENGA TOWER OBSERVER Ot F17.210 NICOTINE DEPENDENCE, CIGARETTES, UNCOMPL 12/25/2016 RAFA ALVARENGA TOWER OBSERVER Ot G89.29 OTHER CHRONIC PAIN 12/25/2016 RAFA ALVARENGA TOWER OBSERVER Ot K58.0 IRRITABLE BOWEL SYNDROME WITH DIARRHEA 12/25/2016 RAFA ALVARENGA TOWER OBSERVER Ot R11.0 NAUSEA 12/25/2016 RAFA ALVARENGA TOWER OBSERVER Ot Z79.899 OTHER MCC (CURRENT) DRUG THERAPY 12/27/2016 MOMO GILBERT Ot M62.82 RHABDOMYOLYSIS 01/23/2017 RAFA ALVARENGA TOWER OBSERVER Ot F17.210 NICOTINE DEPENDENCE, CIGARETTES, UNCOMPL 01/23/2017 RAFA ALVARENGA TOWER OBSERVER Ot R22.1 LOCALIZED SWELLING, MASS AND LUMP, NECK 01/23/2017 Ot 789.01 ABDOMINAL PAIN, RIGHT UPPER QUADRANT 01/23/2017 Ot 789.59 OTHER ASCITES 01/23/2017 MARITZA LANCE, PAULINA Lock Ot 305.1 TOBACCO USE DISORDER 01/23/2017 MARITZA LANCE, PAULINA Lock Ot 440.20 ATHEROSCLEROSIS [place] ARTERIES EXTREMIT 01/23/2017 MARITZA LANCE, PAULINA Lock Ot 729.5 PAIN IN LIMB 01/23/2017 DANDRE LANCE, ANN Akins Ot 788.30 UNSPECIFIED URINARY INCONTINENCE 01/23/2017 DHIRAJ LANCE FAC, ALI FACP CCDS Ot 305.1 TOBACCO USE DISORDER 01/23/2017 DHIRAJ LANCE FAC, ALI FACP CCDS Ot 729.1 MYALGIA AND MYOSITIS NOS 01/23/2017 DHIRAJ LANCE [facility], ALI FACP CCDS Ot 729.81 SWELLING OF LIMB 01/23/2017 DHIRAJ LANCE [facility], ALI FACP CCDS Ot 780.79 OTH MALAISE FATIGUE 01/23/2017 DHIRAJ LANCE [facility], ALI FACP CCDS Ot 786.09 RESPIRATORY ABNORM NEC 01/23/2017 DHIRAJ LANCE [facility], ALI FACP CCDS Ot 786.59 CHEST PAIN NEC 02/10/2017 TIFFANY SAUCEDO MD Ot F17.210 NICOTINE DEPENDENCE, CIGARETTES, UNCOMPL 02/10/2017 TIFFANY SAUCEDO MD Ot F41.8 OTHER SPECIFIED ANXIETY DISORDERS 02/10/2017 TIFFANY SAUCEDO MD Ot G43.909 MIGRAINE, UNSP, NOT INTRACTABLE, WITHOUT 02/10/2017 TIFFANY SAUCEDO MD Ot K21.9 GASTRO-ESOPHAGEAL REFLUX DISEASE WITHOUT 02/10/2017 TIFFANY SAUCEDO MD Ot K58.9 IRRITABLE BOWEL SYNDROME WITHOUT DIARRHE 02/10/2017 TIFFANY SAUCEDO MD Ot R10.84 GENERALIZED ABDOMINAL PAIN 02/10/2017 TIFFANY SAUCEDO MD Ot Z90.49 ACQUIRED ABSENCE OF OTHER SPECIFIED PART 02/10/2017 TIFFANY SAUCEDO MD Ot Z90.89 ACQUIRED ABSENCE OF OTHER ORGANS 02/12/2017 ONEIL BROOKS MD Ot R10.9 UNSPECIFIED ABDOMINAL PAIN 02/13/2017 TIFFANY SAUCEDO MD Ot F17.210 NICOTINE DEPENDENCE, CIGARETTES, UNCOMPL 02/13/2017 TIFFANY SAUCEDO MD Ot F41.8 OTHER SPECIFIED ANXIETY DISORDERS 02/13/2017 TIFFANY SAUCEDO MD Ot G43.909 MIGRAINE, UNSP, NOT INTRACTABLE, WITHOUT 02/13/2017 TIFFANY SAUCEDO MD Ot K21.9 GASTRO-ESOPHAGEAL REFLUX DISEASE WITHOUT 02/13/2017 TIFFANY SAUCEDO MD Ot K58.9 IRRITABLE BOWEL SYNDROME WITHOUT DIARRHE 02/13/2017 TIFFANY SAUCEDO MD Ot R10.84 GENERALIZED ABDOMINAL PAIN 02/13/2017 TIFFANY SAUCEDO MD Ot Z90.49 ACQUIRED ABSENCE OF OTHER SPECIFIED PART 02/13/2017 TIFFANY SAUCEDO MD Ot Z90.89 ACQUIRED ABSENCE OF OTHER ORGANS 02/13/2017 INGRID LEE MD Ot R10.11 RIGHT UPPER QUADRANT PAIN 02/13/2017 INGRID LEE MD Ot Z90.49 ACQUIRED ABSENCE OF OTHER SPECIFIED PART 02/14/2017 ONEIL BROOKS MD Ot R10.9 UNSPECIFIED ABDOMINAL PAIN Procedures Encounters ACCT No. Visit Date/Time Discharge Status Pt. Type Provider Facility Loc./Unit Complaint [id number] 02/12/2017 11:44:00 2016 13:43:00 DIS Emergency ONEIL BROOKS MD [facility] ER STOMACH ACHE [id number] 02/07/2017 07:20:00 2016 09:16:00 DIS Outpatient TIFFANY SAUCEDO MD [facility] ER STOMACH ACHE/DIARRHEA/HEADACHE [id number] 01/23/2017 10:10:00 2016 12:05:00 DIS Emergency RAFA ALVARENGA TOWER OBSERVER [facility] ER SWOLLEN NECK/SORE THROAT [id number] 12/19/2016 11:37:00 2016 14:02:00 DIS Emergency RAFA ALVARENGA APRN [facility] ER ABDOMINAL PAIN [id number] 12/07/2016 08:05:00 2016 10:00:00 DIS Emergency JENNA RAGLAND MD [facility] ER BACK PAIN [id number] 12/02/2016 13:51:00 2016 19:12:00 DIS Emergency JENNA RAGLAND MD [facility] ER BACK/NECK PAIN [id number] 11/28/2016 20:13:00 2016 21:20:00 DIS Emergency RAFA ALVARENGA TOWER OBSERVER [facility] ER CP [id number] 09/12/2016 10:23:00 2016 12:18:00 DIS Emergency RAFA ALVARENGA TOWER OBSERVER [facility] ER NECK PAIN/SWELLING [id number] 01/04/2015 08:21:00 2014 11:58:00 DIS Outpatient PAULINA SALAS MD [facility] REHAB B HIP,LEG AND FOOT PAIN; MUSCLOSKELETAL PAIN;WALKER [id number] 12/29/2014 09:44:00 2014 23:59:59 CLS Outpatient DHIRAJ LANCE FACC, ELEUTERIO SOLANO CCDS [facility] CARD CP DYSPNEA [id number] 12/26/2014 11:56:00 2014 14:01:00 DIS Emergency SANAM FRANK DO K [facility] ER RETAINING FLUID [id number] 09/08/2014 14:21:00 2014 16:55:00 DIS Emergency SHERYL LANCE, TIFFANY Anthony [facility] ER DIZZINESS/CHEST PAIN [id number] 06/17/2014 10:36:00 2013 23:59:59 CLS Outpatient DANDRE LANCE, ANN Akins [facility] RAD INCONTINENCE [id number] 06/07/2014 14:01:00 2013 23:59:59 CLS Outpatient PAULINA SALAS MD [facility] RAD BILAT LEG PAIN, CRAMPING [id number] 06/06/2014 06:28:00 2013 08:20:00 DIS Emergency ELLYN LANCE, JENNA Perry [facility] ER [id number] 11/15/2013 13:01:00 2013 08:30:00 DIS Inpatient PAULINA SALAS MD [facility] 4TH RT LEG AND CALF PAIN, INTRACTIBLE MIGRAIN [id number] 10/01/2013 15:36:00 2013 18:25:00 DIS Emergency [id number] 09/26/2013 12:25:00 2013 15:52:00 DIS Emergency [id number] 09/21/2013 10:31:00 2013 12:20:00 DIS Emergency [id number] 07/29/2013 11:41:00 2012 15:00:00 DIS Outpatient [id number] 07/17/2013 15:24:00 2012 18:06:00 DIS Emergency TIRSO MONDRAGON [facility] ER [id number] 06/29/2013 10:19:00 2012 23:59:59 CLS Outpatient [id number] 06/16/2013 17:10:00 2012 19:10:00 DIS Emergency [id number] 05/27/2013 11:46:00 2012 15:30:00 DIS Outpatient [id number] 03/17/2013 08:16:00 2012 11:13:00 DIS Outpatient [id number] 03/24/2013 09:43:00 2012 11:26:00 DIS Outpatient [id number] 12/25/2012 12:22:00 2012 23:59:59 CLS Outpatient [id number] 12/24/2012 14:54:00 2012 23:59:59 CLS Outpatient [id number] 02/12/2017 14:43:00 ACT Outpatient INGRID LEE MD [facility] RAD R10.11 RUQ PAIN [id number] 01/20/2017 14:36:00 PEN Preadmit INGRID LEE MD [facility] RAD R22.1 SWELLING IN LT NECK [id number] 12/07/2016 08:24:00 Document Registration [id number] 12/04/2016 13:04:00 ACT Outpatient MOMO GILBERT [facility] LAB M62.82 [id number] 12/02/2014 08:26:00 Document Registration [id number] 12/02/2014 08:26:00 Document Registration [id number] 12/02/2014 08:26:00 Document Registration [id number] 12/02/2014 08:26:00 Document Registration [id number] 12/02/2014 08:26:00 Document Registration [id number] 12/02/2014 08:26:00 Document Registration [id number] 12/02/2014 08:26:00 Document Registration [id number] 10/24/2014 05:15:00 Document Registration [id number] 07/30/2012 00:00:00 Document Registration [id number] 05/18/2012 13:40:00 Document Registration [id number] 05/15/2012 11:30:00 Document Registration [id number] 04/01/2012 10:33:00 Document Registration [id number] 09/27/2011 14:15:00 Document Registration [id number] 09/27/2011 11:55:00 Document Registration [id number] 05/17/2010 05:55:00 Document Registration [id number] 05/04/2010 09:40:00 Document Registration [id number] 04/20/2010 11:00:00 Document Registration [id number] 04/18/2010 08:54:00 Document Registration [id number] 02/26/2010 09:22:00 Document Registration [id number] 12/17/2009 11:03:00 Document Registration [id number] 08/14/2009 00:00:00 Document Registration [id number] 06/15/2009 10:51:00 Document Registration
== END 2017-02-18 18:08 | disposition home or self-care (01) ==
LOC: EDUNIT# 14:33 → ER 14:37
DX: M26.603 Bilateral temporomandibular joint disorder, unspecified (principal); R10.84 Generalized abdominal pain; F41.9 Anxiety disorder, unspecified; F32.9 Major depressive disorder, single episode, unspecified; G89.29 Other chronic pain; M54.9 Dorsalgia, unspecified; K21.9 Gastro-esophageal reflux disease without esophagitis; G43.909 Migraine, unspecified, not intractable, without status migrainosus; R53.82 Chronic fatigue, unspecified; F17.210 Nicotine dependence, cigarettes, uncomplicated; Z90.49 Acquired absence of other specified parts of digestive tract; Z90.710 Acquired absence of both cervix and uterus; Z90.721 Acquired absence of ovaries, unilateral; Z87.42 Personal history of other diseases of the female genital tract
CPT/HCPCS: 36415; 80053; 81000; 83690; 85025; 96361; 96374; 96375

== ENCOUNTER 2017-04-01 08:06 | Emergency (ER) | payer MEDICARE, MEDICAID ==
[~2017-04-01] VITALS: Ht 177.8 cm; Wt 95.7 kg
[~2017-04-01 08:06] MED LIST changes: +NABU750T PO; -NAPR500T3; +NAPR500T4
[2017-04-01] MEDS ORDERED: LACTATED RINGERS 1,000 ML IV ONE (08:39)
[2017-04-01 08:52] LABS: BASOPHILS % (AUTO) 0 % (0-10); EOSINOPHILS # (AUTO) 0.1 10^3/uL (0.0-0.3); EOSINOPHILS % (AUTO) 2 % (0-10); LYMPHOCYTES # (AUTO) 2.2 X 10^3 (1.0-4.0); LYMPHOCYTES % (AUTO) 30 % (12-44); MEAN CORPUSCULAR HEMOGLOBIN 27 PG (25-34); MEAN CORPUSCULAR HGB CONC 33 G/DL (32-36); MEAN CORPUSCULAR VOLUME 81 FL (80-99); MEAN PLATELET VOLUME 9.2 FL (7.4-10.4); MONOCYTES # (AUTO) 0.4 X 10^3 (0.0-1.0); MONOCYTES % (AUTO) 6 % (0-12); NEUTROPHILS # (AUTO) 4.5 X 10^3 (1.8-7.8); NEUTROPHILS % (AUTO) 62 % (42-75); PLATELET COUNT 333 10^3/uL (130-400); RED BLOOD COUNT 5.06 10^6/uL (4.35-5.85); RED CELL DISTRIBUTION WIDTH 16.5 % (10.0-14.5); WHITE BLOOD COUNT 7.2 10^3/uL (4.3-11.0)
[2017-04-01 08:58] LABS: BILIRUBIN,URINE NEGATIVE (NEGATIVE); KETONES,URINE NEGATIVE (NEGATIVE); LEUKOCYTE ESTERASE ,URINE 3+ (NEGATIVE); NITRITE,URINE POSITIVE (NEGATIVE); PH,URINE 5 (5-9); PROTEIN,URINE 1+ (NEGATIVE); UROBILINOGEN,URINE NORMAL (NORMAL)
[2017-04-01 09:05] LABS: WBC,URINE >100 /HPF
[2017-04-01 09:12] LABS: ALANINE AMINOTRANSFERASE 59 U/L (0-55); ALBUMIN 4.1 GM/DL (3.2-4.5); ALCOHOL < 10 MG/DL (<10); AMYLASE 68 U/L (25-125); ANION GAP 10 MMOL/L (5-14); ASPARTATE AMINO TRANSFERASE 24 U/L (5-34); BILIRUBIN,TOTAL 0.3 MG/DL (0.1-1.0); BLOOD UREA NITROGEN 14 MG/DL (7-18); BUN/CREATININE RATIO 17; CALCIUM 9.7 MG/DL (8.5-10.1); CARBON DIOXIDE 26 MMOL/L (21-32); CHLORIDE 104 MMOL/L (98-107); CREATININE SERUM 0.82 MG/DL (0.60-1.30); GFR ESTIMATED > 60; GLUCOSE 87 MG/DL (70-105); LIPASE < 4 U/L (8-78); MAGNESIUM 2.2 MG/DL (1.8-2.4); POTASSIUM 3.9 MMOL/L (3.6-5.0); SODIUM 140 MMOL/L (135-145); TOTAL PROTEIN 7.8 GM/DL (6.4-8.2)
--- NOTE | 2017-04-01 09:14 | ED General ---
General Chief Complaint: General Problems/Pain Stated Complaint: DIZZINESS,FATIGUE Nursing Triage Note: PT STATES THAT HER LIVER ENZYMES ARE ELEVATED, FEELING FATIGUED FOR THE PAST THREE WEEKS. GENERAL BODY ACHES WITH DIZZINESS. Nursing Sepsis Screen: No Definite Risk Source of Information: Patient, Old Records History of Present Illness Time Seen by Provider: 08:39 Initial Comments PT STATES SHE IS TIRED ALL THE TIME, HURTS ALL OVER, NO ENERGY TO DO ANYTHING FOR THE PAST COUPLE OF WEEKS HAS NOT TAKEN ANYTHING FOR PAIN SYMPTOMS ARE NO DIFFERENT TODAY PT STATES IS IS DISABLED FROM FIBROMYALGIA AND CHRONIC FATIGUE SYNDROME, AND THESE SYMPTOMS ARE CHRONIC, BUT STATES "NOT USUALLY THIS BAD" PT STATES SHE HAS A HISTORY OF FRITZ ZAVALA VIRUS 7 YEARS AGO, AND THIS FEELS THE SAME NO FEVER NO NAUSEA/VOMITING/DIARRHEA NO ABDOMINAL PAIN NO HEADACHE NO URI/SYMPTOMS NO CHEST PAIN OR SHORTNESS OF BREATH NO DIZZINESS C/O URINARY URGENCY AND FREQUENCY STATES SHE IS EATING AND DRINKING " BUT NOT THE BEST" PT HAS HISTORY OF ELEVATED LIVER ENZYMES, AND WAS SEEN AT [facility] LAST WEEK FOR THESE SYMPTOMS AND HAD LAB DONE AND WAS TOLD HER LFT'S WERE ELEVATED. NO ADDITIONAL TESTS WERE DONE, NO RX'S GIVEN PCP: [facility], SUE LAMBERT Allergies and Home Medications Allergies Coded Allergies: pregabalin (Verified Adverse Reaction, Intermediate, 12/07/16) Rhabdomyolysis meperidine (Verified Adverse Reaction, Mild, NAUSEA, 12/07/16) morphine (Verified Adverse Reaction, Mild, NAUSEA, 09/13/07) Uncoded Allergies: STEROID PILLS (Allergy, Unknown, 11/15/13) Home Medications Alprazolam 1 Mg Tablet, #56 (Reported) Cephalexin 500 Mg Capsule, 500 MG PO QID for 7 Days, (Reported) Cyanocobalamin 1,000 Mcg/Ml Vial, 1,000 MCG IJ WEEKLY, (Reported) Cyclobenzaprine HCl 10 Mg Tablet, #60 (Reported) Dicyclomine HCl 20 Mg Tablet, 20 MG PO ACHS, #30 Prescribed by: RAFA ALVARENGA on 12/19/16 1251 Estradiol 2 Mg Tablet, #21 (Reported) Furosemide 20 Mg Tablet, 20 MG PO DAILY, (Reported) Methylprednisolone Acetate 80 Mg/Ml Vial, 160 MG IJ MONTHLY, (Reported) Metronidazole 500 Mg Tablet, 500 MG PO BID for 7 Days, (Reported) Nabumetone 750 Mg Tablet, 750 MG PO BID, #14 Ref 1 Prescribed by: BAR MINOR on 02/18/17 1753 Naproxen 500 Mg Tablet, 500 MG PO BID PRN for PAIN, #20 Prescribed by: RAFA ALVARENGA on 09/12/16 1058 Naproxen 500 Mg Tablet, #60 (Reported) Nitrofurantoin Monohyd/M-Cryst 100 Mg Capsule, 100 MG PO BID, #30 Prescribed by: SANAM FRANK on 04/01/17 0945 Ondansetron 4 Mg Tab.rapdis, 4 MG SL Q4H PRN for NAUSEA/VOMITING-1ST LINE, #10 Prescribed by: JENNA MCDANIELS on 12/07/16 0930 Sulfamethoxazole/Trimethoprim 1 Each Tablet, #14 (Reported) [Flexeril] , 5 MG PO TID PRN for PAIN, #20 Prescribed by: RAFA ALVARENGA on 09/12/16 1058 Constitutional: No chills, diaphoresis (HOT FLASHES/SWEATS), No dizziness, No fever, malaise EENTM: no symptoms reported Respiratory: no symptoms reported Cardiovascular: no symptoms reported Gastrointestinal: no symptoms reported Genitourinary: see HPI, No dysuria, frequency, No incontinence : No (HYST/BSO) Musculoskeletal: see HPI Skin: no symptoms reported Psychiatric/Neurological: No Symptoms Reported Hematologic/Lymphatic: No Symptoms Reported Immunological/Allergic: no symptoms reported Past [id number] Hx Patient Social History Alcohol Use: Past History (HX OF ETOH ABUSE/HEAVY USE, DENIES RECENT USE) Recreational Drug Use: Yes Smoking Status: Current Everyday Smoker (1/2 PPD) Type Used: Cigarettes 2nd Hand Smoke Exposure: Yes Recent Foreign Travel: No Contact w/Someone Who Travel: No Recent Infectious Disease Expo: No Recent Hopitalizations: No Immunizations Up To Date Tetanus Booster (TDap): Unknown Date of Influenza Vaccine: May 15, 2016 Seasonal Allergies Seasonal Allergies: Yes Surgeries History of Surgeries: Yes (TEAR REPAIR AFTER VAG , DX LAP FOR ENDOMETRIOSIS/OVARIAN CYSTS,EGD) Surgeries: Abdominal, Appendectomy, Gallbladder, Hysterectomy, Oophorectomy Respiratory History of Respiratory Disorde: No Cardiovascular History of Cardiac Disorders: No Neurological History of Neurological Disord: Yes (CHRONIC FATIGUE SYNDROME, FIBROMYALGIA) Neurological Disorders: Headaches /Migraines 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 System Hx 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 Disorders: Yes Sexually Transmitted Disease: No Female 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 Disorders: 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, 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 Genitourinary History of Genitourinary Disor: No Gastrointestinal History of Gastrointestinal Di: Yes (CHRONIC NAUSEA AND ABDOMINAL PAIN ) Gastrointestinal Disorders: Gastroesophageal Reflux, Diverticulosis Musculoskeletal History of Musculoskeletal Dis: Yes (CHRONIC FATIGUE SYNDROME, CHRONIC NECK PAIN AND GENERALIZED PAIN ) Musculoskeletal Disorders: Fibromyalgia, Chronic Back Pain Endocrine History of Endocrine Disorders: Yes (STATES "HYPOGLYCEMIA") HEENT History of HEENT Disorders: No Cancer History of Cancer: No Psychosocial History of Psychiatric Problem: Yes Behavioral Health Disorders: Anxiety, Depression Integumentary History of Skin or Integumenta: No Blood Transfusions History of Blood Disorders: No Family Medical History Significant Family History: No Pertinent Family Hx Family Medial History: Cancer Cataract Family history: Allergy Family history: Arthritis Family history: Asthma Family history: Breast disease Family history: Diabetes mellitus Family history: Hypertension Family history: Osteoporosis Family history: Thyroid disorder Headache Heart disease Hypercholesterolemia Psychotic disorder Seizure disorder No Family History of: Abdominal aortic aneurysm [place]'s disease Alcoholism Aphasia Cancer of colon Chest pain Congenital heart disease Congestive heart failure Cystic fibrosis Dementia Dysphagia Family history: Alzheimer's disease Family history: Cardiovascular disease Family history: Coronary thrombosis Family history: Gastrointestinal disease Family history: Glaucoma Hearing loss Hereditary disease History of - anemia History of - disorder History of - respiratory disease History of drug abuse Human immunodeficiency virus (HIV) seropositivity Infertile Kidney disease Malignant neoplasm of lung Myocardial infarction Parkinson's disease Prostate cancer Stroke Tuberculosis Visual impairment Physical Exam Vital Signs Vital Sign - Last 12Hours 04/01/17 08:13 Temp 96.4 Pulse 88 Resp 18 B/P (MAP) 97/76 Pulse Ox 100 O2 Delivery Room Air Capillary Refill : Less Than 3 Seconds General Appearance: No Apparent Distress, WD/WN, Other (FLAT AFFECT) HEENT: PERRL/EOMI, TMs Normal, Normal ENT Inspection, Pharynx Normal Neck: Full Range of Motion, Normal Inspection, Non Tender, Supple, No Carotid Bruit, No JVD, No Thyromegaly Respiratory: Normal Breath Sounds, No Accessory Muscle Use, No Respiratory Distress Cardiovascular: Regular Rate, Rhythm, No Edema, No JVD, No Murmur, Normal Peripheral Pulses Gastrointestinal: Normal Bowel Sounds, No Organomegaly, No Pulsatile Mass, Soft , Tenderness (MILD EPIGASTRIC ) Back: Normal Inspection, No CVA Tenderness, No Vertebral Tenderness Extremity: Normal Capillary Refill, Normal Inspection, Normal Range of Motion, Non Tender, No Calf Tenderness, No Pedal Edema Neurologic/Psychiatric: Alert, Oriented x3, No Motor/Sensory Deficits, 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 Norm as Tested, No Abnormal Cerebellar Tests Skin: Normal Color, Warm/Dry Progress/Results/Core Measures Results/Orders Lab Results Laboratory Tests Test 04/01/17 08:40 04/01/17 08:49 Range/Units White Blood Count 7.2 4.3-11.0 10^3/uL Red Blood Count 5.06 4.35-5.85 10^6/uL Hemoglobin 13.6 11.5-16.0 G/DL Hematocrit 41 35-52 % Mean Corpuscular Volume 81 80-99 FL Mean Corpuscular Hemoglobin 27 25-34 PG Mean Corpuscular Hemoglobin Concent 33 32-36 G/DL Red Cell Distribution Width 16.5 H 10.0-14.5 % Platelet Count 333 130-400 10^3/uL Mean Platelet Volume 9.2 7.4-10.4 FL Neutrophils (%) (Auto) 62 42-75 % Lymphocytes (%) (Auto) 30 12-44 % Monocytes (%) (Auto) 6 0-12 % Eosinophils (%) (Auto) 2 0-10 % Basophils (%) (Auto) 0 0-10 % Neutrophils # (Auto) 4.5 1.8-7.8 X 10^3 Lymphocytes # (Auto) 2.2 1.0-4.0 X 10^3 Monocytes # (Auto) 0.4 0.0-1.0 X 10^3 Eosinophils # (Auto) 0.1 0.0-0.3 10^3/uL Basophils # (Auto) 0.0 0.0-0.1 10^3/uL Sodium Level 140 135-145 MMOL/L Potassium Level 3.9 3.6-5.0 MMOL/L Chloride Level 104 98-107 MMOL/L Carbon Dioxide Level 26 21-32 MMOL/L Anion Gap 10 5-14 MMOL/L Blood Urea Nitrogen 14 7-18 MG/DL Creatinine 0.82 0.60-1.30 MG/DL Estimat Glomerular Filtration Rate > 60 BUN/Creatinine Ratio 17 Glucose Level 87 70-105 MG/DL Calcium Level 9.7 8.5-10.1 MG/DL Magnesium Level 2.2 1.8-2.4 MG/DL Total Bilirubin 0.3 0.1-1.0 MG/DL Aspartate Amino Transf (AST/SGOT) 24 5-34 U/L Alanine Aminotransferase (ALT/SGPT) 59 H 0-55 U/L Alkaline Phosphatase 163 H 40-136 U/L Total Protein 7.8 6.4-8.2 GM/DL Albumin 4.1 3.2-4.5 GM/DL Amylase Level 68 25-125 U/L Lipase < 4 L 8-78 U/L TSH [place] Testing 1.02 0.35-4.94 UIU/ML Acetaminophen Level < 10 L 10-30 UG/ML Serum Alcohol < 10 <10 MG/DL Monoscreen NEGATIVE NEGATIVE Urine Color YELLOW Urine Clarity VERY CLOUDY H Urine pH 5 5-9 Urine Specific [place] 1.015 L 1.016-1.022 Urine Protein 1+ H NEGATIVE Urine Glucose (UA) NEGATIVE NEGATIVE Urine Ketones NEGATIVE NEGATIVE Urine Nitrite POSITIVE H NEGATIVE Urine Bilirubin NEGATIVE NEGATIVE Urine Urobilinogen NORMAL NORMAL MG/DL Urine Leukocyte Esterase 3+ H NEGATIVE Urine RBC (Auto) 2+ H NEGATIVE Urine RBC RARE /HPF Urine WBC >100 H /HPF Urine Squamous Epithelial Cells 10-25 H /HPF Urine Crystals NONE /LPF Urine Bacteria MODERATE H /HPF Urine Casts NONE /LPF Urine Mucus NEGATIVE /LPF Urine Culture Indicated YES Urine Opiates Screen NEGATIVE NEGATIVE Urine Oxycodone Screen NEGATIVE NEGATIVE Urine Methadone Screen NEGATIVE NEGATIVE Urine Propoxyphene Screen NEGATIVE NEGATIVE Urine Barbiturates Screen NEGATIVE NEGATIVE Ur Tricyclic Antidepressants Screen POSITIVE H NEGATIVE Urine Phencyclidine Screen NEGATIVE NEGATIVE Urine Amphetamines Screen NEGATIVE NEGATIVE Urine Methamphetamines Screen NEGATIVE NEGATIVE Urine Benzodiazepines Screen NEGATIVE NEGATIVE Urine Cocaine Screen NEGATIVE NEGATIVE Urine Cannabinoids Screen NEGATIVE NEGATIVE My Orders Orders - SANAM FRANK DO Saline Lock/Iv-Start (04/01/17 08:39) Amylase (04/01/17 08:39) Cbc With Automated Diff (04/01/17 08:39) Comprehensive Metabolic Panel (04/01/17 08:39) Lipase (04/01/17 08:39) Magnesium (04/01/17 08:39) Monotest (04/01/17 08:39) Thyroid Analyzer (04/01/17 08:39) Ua Culture If Indicated (04/01/17 08:39) Saline Lock/Iv-Start (04/01/17 08:39) Lactated Ringers (Lr 1000 Ml Iv Solution (04/01/17 08:39) Alcohol (04/01/17 08:46) Drug Screen Stat (Urine) (04/01/17 08:46) Urine Culture (04/01/17 08:49) Hepatitis Panel Acute (04/01/17 09:37) Acetaminophen (04/01/17 09:37) Ceftriaxone Injection (Rocephin Injectio (04/01/17 09:45) Medications Given in ED Current Medications Medications Dose Ordered Sig/Cali Route Start Time Stop Time Status Last Admin Dose Admin Ceftriaxone Sodium 1000 mg/ Sodium Chloride 50 ml @ 100 mls/hr ONCE ONCE IV 04/01/17 09:45 04/01/17 10:14 DC 04/01/17 09:52 100 MLS/HR Lactated Ringer's 1,000 ml @ 0 mls/hr Q0M ONCE IV 04/01/17 08:39 04/01/17 08:41 DC 04/01/17 09:36 1,000 MLS/HR Vital Signs/I&O Vital Sign - Last 12Hours 04/01/17 04/01/17 08:13 10:45 Temp 96.4 97.0 Pulse 88 90 Resp 18 18 B/P (MAP) 97/76 Pulse Ox 100 99 O2 Delivery Room Air Room Air Blood Pressure Mean: 83 Departure Impression Impression: Primary Impression: Urinary tract infection Additional Impressions: EXACERBATION OF CHRONIC FATIGUE EXACERBATION OF CHRONIC GENERALIZED PAIN MILDLY ELEVATED LIVER ENZYMES Disposition: 01 HOME, SELF-CARE Condition: Stable Departure-Patient Inst. Referrals: [facility] (PCP) Primary Care Physician THANIA LAMBERT (Family) Primary Care Physician Patient Instructions: CHRONIC PAIN, Chronic Fatigue Syndrome, Fibromyalgia (DC) , Urinary Tract Infection, Adult (DC) Add. Discharge Instructions: LOTS OF CLEAR LIQUIDS--NO COFFEE, POP OR TEA CONTINUE YOUR REGULAR MEDICATIONS PRESCRIBED NO TYLENOL OR ALCOHOL YOU MAY TAKE IBUPROFEN NEEDED FOR PAIN FOLLOW UP WITH [facility] IN 3-4 DAYS FOR FURTHER CARE All discharge instructions reviewed with patient and/or family. Voiced understanding. Scripts Nitrofurantoin Monohyd/M-Cryst (Macrobid 100 mg Capsule) 100 Mg Capsule 100 MG PO BID, #30 CAP Prov: SANAM FRANK DO 04/01/17 SANAM FRANK DO Apr 01, 2017 09:14
[2017-04-01] MEDS ORDERED: cefTRIAXone INJECTION 1,000 MG in NS (IVPB) 50 ML IV ONE (09:45)
[2017-04-01] MEDS ORDERED: NITR-65 PO (09:45)
[2017-04-01 10:45] VITALS: BP 110/78
== END 2017-04-01 10:45 | disposition home or self-care (01) ==
LOC: EDUNIT# 08:06 → ER 08:08
DX: N39.0 Urinary tract infection, site not specified (principal); R53.83 Other fatigue; R52 Pain, unspecified; G89.29 Other chronic pain; R94.5 Abnormal results of liver function studies; G43.909 Migraine, unspecified, not intractable, without status migrainosus; K21.9 Gastro-esophageal reflux disease without esophagitis; F41.9 Anxiety disorder, unspecified; F32.9 Major depressive disorder, single episode, unspecified; F17.210 Nicotine dependence, cigarettes, uncomplicated; Z82.49 Family history of ischemic heart disease and other diseases of the circulatory system; Z87.448 Personal history of other diseases of urinary system; Z87.19 Personal history of other diseases of the digestive system; Z90.49 Acquired absence of other specified parts of digestive tract; Z90.710 Acquired absence of both cervix and uterus
CPT/HCPCS: 36415; 80053; 80074; 80306; 80320; 80329; 81000; 82150; 83690; 83735; 84443; 85025; 86308; 87088; 87186; 96361; 96365

== ENCOUNTER 2017-04-17 11:49 | Emergency (ER) | payer MEDICARE, MEDICAID ==
[~2017-04-17 11:49] MED LIST changes: +NAPR500T3; -NAPR500T4
== END 2017-04-17 12:55 | disposition left against medical advice (07) ==
LOC: EDUNIT# 11:49 → ER 11:52
DX: M54.9 Dorsalgia, unspecified (principal)

== ENCOUNTER 2017-04-27 21:38 | Emergency (ER) | payer MEDICARE, MEDICAID ==
[~2017-04-27] VITALS: Ht 177.8 cm; Wt 95.7 kg
[~2017-04-27 21:38] MED LIST changes: -NAPR500T3; +NAPR500T4
[2017-04-27] MEDS ORDERED: NS IV 1000 ML 1,000 ML IV ONE (22:02)
--- NOTE | 2017-04-27 22:07 | ED Chest Pain ---
General Chief Complaint: General Problems/Pain Stated Complaint: CHEST PAIN Nursing Triage Note: C/O REPORDUCABLE CHEST WALL PAIN X2 HRS Nursing Sepsis Screen: No Definite Risk Source: patient, family (daughter) Exam Limitations: no limitations History of Present Illness Time seen by provider: 21:58 Initial Comments Patient presents to ER by private conveyance with a primary complaint of right- sided chest pain that started about 2 hours ago while she is laying on the couch. She says that she's felt ill for the last week with some nausea. She's been short of breath but had no cough. She is on estrogen pills. She does not have a history of thyroid or blood pressure disease however she has primary M.D. history of mom and dad both having heart attacks in their mid 40s. Her brother had a stroke and he is only 2 years older than her. She smokes about a pack a day and she is working on quitting for the past week. She is down to about a third of a pack a day. She herself has no primary coronary history. The pain is worse when she takes deep breaths or moves around. Reproducible on palpation. Pain moderate bleeding radiates to her right shoulder and arm and is described as aching in character. Allergies and Home Medications Allergies Coded Allergies: pregabalin (Verified Adverse Reaction, Intermediate, 12/07/16) Rhabdomyolysis meperidine (Verified Adverse Reaction, Mild, NAUSEA, 12/07/16) morphine (Verified Adverse Reaction, Mild, NAUSEA, 09/13/07) Uncoded Allergies: STEROID PILLS (Allergy, Unknown, 11/15/13) Home Medications Alprazolam 1 Mg Tablet, #56 (Reported) Cyclobenzaprine HCl 10 Mg Tablet, #60 (Reported) Dicyclomine HCl 20 Mg Tablet, 20 MG PO ACHS, #30 Prescribed by: RAFA ALVARENGA on 12/19/16 1251 Estradiol 2 Mg Tablet, #21 (Reported) Furosemide 20 Mg Tablet, 20 MG PO DAILY, (Reported) Methylprednisolone Acetate 80 Mg/Ml Vial, 160 MG IJ MONTHLY, (Reported) Metronidazole 500 Mg Tablet, 500 MG PO BID for 7 Days, (Reported) Nabumetone 750 Mg Tablet, 750 MG PO BID, #14 Ref 1 Prescribed by: BAR MINOR on 02/18/17 1753 Naproxen 500 Mg Tablet, 500 MG PO BID PRN for PAIN, #20 Prescribed by: RAFA ALVARENGA on 09/12/16 1058 Ondansetron 4 Mg Tab.rapdis, 4 MG SL Q4H PRN for NAUSEA/VOMITING-1ST LINE, #10 Prescribed by: JENNA MCDANIELS on 12/07/16 0930 [Flexeril] , 5 MG PO TID PRN for PAIN, #20 Prescribed by: RAFA ALVARENGA on 09/12/16 1058 Review of Systems Constitutional: No chills, No diaphoresis, No fever, No malaise EENTM: No Blurred Vision, No Eye Pain Respiratory: Denies Cough, Shortness of Air Cardiovascular: See HPI, Chest Pain, Denies Irregular Heart Rate, Denies Lightheadedness, Denies Palpitations, Denies Syncope Gastrointestinal: Denies Abdomen Distended, Denies Abdominal Pain, Denies Constipated, Denies Diarrhea, Nausea Genitourinary: Denies Burning, Denies Discharge Musculoskeletal: No back pain, No joint pain Skin: No pruritus, No rash Psychiatric/Neurological: Denies Headache, Denies Numbness, Denies Paresthesia Past Hxeatgx-Beboyt-Wpblzp Hx Patient Social History Alcohol Use: Denies Use Recreational Drug Use: No Smoking Status: Current Everyday Smoker Type Used: Cigarettes 2nd Hand Smoke Exposure: Yes Recent Foreign Travel: No Contact w/Someone Who Travel: No Recent Infectious Disease Expo: No Recent Hopitalizations: Yes (MULTIPLE E.D. VISITS) Immunizations Up To Date Tetanus Booster (TDap): Unknown Date of Influenza Vaccine: May 15, 2016 Seasonal Allergies Seasonal Allergies: Yes Surgeries History of Surgeries: Yes (TEAR REPAIR AFTER VAG , DX LAP FOR ENDOMETRIOSIS/OVARIAN CYSTS,EGD) Surgeries: Abdominal, Appendectomy, Gallbladder, Hysterectomy, Oophorectomy Respiratory History of Respiratory Disorde: No Cardiovascular History of Cardiac Disorders: No Neurological History of Neurological Disord: Yes (CHRONIC FATIGUE SYNDROME, FIBROMYALGIA) Neurological Disorders: Headaches /Migraines 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 System : No Hx 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 Disorders: Yes Sexually Transmitted Disease: No Female 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 Disorders: 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, 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 Genitourinary History of Genitourinary Disor: No Gastrointestinal History of Gastrointestinal Di: Yes (CHRONIC NAUSEA AND ABDOMINAL PAIN ) Gastrointestinal Disorders: Gastroesophageal Reflux, Diverticulosis Musculoskeletal History of Musculoskeletal Dis: Yes (CHRONIC FATIGUE SYNDROME, CHRONIC NECK PAIN AND GENERALIZED PAIN ) Musculoskeletal Disorders: Fibromyalgia, Chronic Back Pain Endocrine History of Endocrine Disorders: Yes (STATES "HYPOGLYCEMIA") HEENT History of HEENT Disorders: No Cancer History of Cancer: No Psychosocial History of Psychiatric Problem: Yes Behavioral Health Disorders: Anxiety, Depression Integumentary History of Skin or Integumenta: No Blood Transfusions History of Blood Disorders: No Family Medical History Significant Family History: No Pertinent Family Hx Family Medial History: Cancer Cataract Family history: Allergy Family history: Arthritis Family history: Asthma Family history: Breast disease Family history: Diabetes mellitus Family history: Hypertension Family history: Osteoporosis Family history: Thyroid disorder Headache Heart disease Hypercholesterolemia Psychotic disorder Seizure disorder No Family History of: Abdominal aortic aneurysm [place]'s disease Alcoholism Aphasia Cancer of colon Chest pain Congenital heart disease Congestive heart failure Cystic fibrosis Dementia Dysphagia Family history: Alzheimer's disease Family history: Cardiovascular disease Family history: Coronary thrombosis Family history: Gastrointestinal disease Family history: Glaucoma Hearing loss Hereditary disease History of - anemia History of - disorder History of - respiratory disease History of drug abuse Human immunodeficiency virus (HIV) seropositivity Infertile Kidney disease Malignant neoplasm of lung Myocardial infarction Parkinson's disease Prostate cancer Stroke Tuberculosis Visual impairment Physical Exam Vital Signs Vital Sign - Last 12Hours 04/27/17 21:53 Temp 98.1 Pulse 109 Resp 18 B/P (MAP) 124/87 Pulse Ox 97 O2 Delivery Room Air Capillary Refill : Less Than 3 Seconds General Appearance: No Apparent Distress, WD/WN HEENT: PERRL/EOMI, Normal ENT Inspection, Pharynx Normal Neck: Full Range of Motion, Non Tender, Supple Respiratory: Lungs Clear, Normal Breath Sounds, Other (chest pain on deep inspiration; tenderness to deep palpation over right chest read read's pain.) Cardiovascular: Regular Rate, Rhythm, No Edema, No Gallop, No JVD, No Murmur, Normal Peripheral Pulses Gastrointestinal: Normal Bowel Sounds, Non Tender, Soft Extremity: Normal Capillary Refill, No Pedal Edema Neurologic/Psychiatric: Alert, Oriented x3 Skin: Normal Color, Warm/Dry Progress/Results/Core Measures Results/Orders Lab Results Laboratory Tests Test 04/27/17 22:15 04/27/17 22:30 04/27/17 22:55 Range/Units White Blood Count 14.6 H 4.3-11.0 10^3/uL Red Blood Count 4.87 4.35-5.85 10^6/uL Hemoglobin 13.2 11.5-16.0 G/DL Hematocrit 40 35-52 % Mean Corpuscular Volume 82 80-99 FL Mean Corpuscular Hemoglobin 27 25-34 PG Mean Corpuscular Hemoglobin Concent 33 32-36 G/DL Red Cell Distribution Width 17.0 H 10.0-14.5 % Platelet Count 322 130-400 10^3/uL Mean Platelet Volume 9.3 7.4-10.4 FL Neutrophils (%) (Auto) 71 42-75 % Lymphocytes (%) (Auto) 23 12-44 % Monocytes (%) (Auto) 5 0-12 % Eosinophils (%) (Auto) 1 0-10 % Basophils (%) (Auto) 1 0-10 % Neutrophils # (Auto) 10.3 H 1.8-7.8 X 10^3 Lymphocytes # (Auto) 3.3 1.0-4.0 X 10^3 Monocytes # (Auto) 0.8 0.0-1.0 X 10^3 Eosinophils # (Auto) 0.1 0.0-0.3 10^3/uL Basophils # (Auto) 0.1 0.0-0.1 10^3/uL Neutrophils % (Manual) 76 % Lymphocytes % (Manual) 17 % Monocytes % (Manual) 5 % Basophils % (Manual) 1 % Dohle Bodies SLIGHT Anisocytosis SLIGHT D-Dimer 0.30 0.00-0.49 UG/ML Sodium Level 140 135-145 MMOL/L Potassium Level 3.7 3.6-5.0 MMOL/L Chloride Level 107 98-107 MMOL/L Carbon Dioxide Level 25 21-32 MMOL/L Anion Gap 8 5-14 MMOL/L Blood Urea Nitrogen 15 7-18 MG/DL Creatinine 0.78 0.60-1.30 MG/DL Estimat Glomerular Filtration Rate > 60 BUN/Creatinine Ratio 19 Glucose Level 97 70-105 MG/DL Calcium Level 8.7 8.5-10.1 MG/DL Magnesium Level 2.2 1.8-2.4 MG/DL Total Bilirubin 0.2 0.1-1.0 MG/DL Aspartate Amino Transf (AST/SGOT) 27 5-34 U/L Alanine Aminotransferase (ALT/SGPT) 56 H 0-55 U/L Alkaline Phosphatase 202 H 40-136 U/L Troponin I < 0.30 <0.30 NG/ML Total Protein 6.6 6.4-8.2 GM/DL Albumin 3.4 3.2-4.5 GM/DL Urine Color YELLOW Urine Clarity CLEAR Urine pH 6 5-9 Urine Specific [place] 1.015 L 1.016-1.022 Urine Protein NEGATIVE NEGATIVE Urine Glucose (UA) NEGATIVE NEGATIVE Urine Ketones NEGATIVE NEGATIVE Urine Nitrite NEGATIVE NEGATIVE Urine Bilirubin NEGATIVE NEGATIVE Urine Urobilinogen NORMAL NORMAL MG/DL Urine Leukocyte Esterase NEGATIVE NEGATIVE Urine RBC (Auto) NEGATIVE NEGATIVE Urine RBC NONE /HPF Urine WBC NONE /HPF Urine Squamous Epithelial Cells 2-5 /HPF Urine Crystals NONE /LPF Urine Bacteria NEGATIVE /HPF Urine Casts NONE /LPF Urine Mucus NEGATIVE /LPF Urine Culture Indicated NO Urine Opiates Screen NEGATIVE NEGATIVE Urine Oxycodone Screen NEGATIVE NEGATIVE Urine Methadone Screen NEGATIVE NEGATIVE Urine Propoxyphene Screen NEGATIVE NEGATIVE Urine Barbiturates Screen NEGATIVE NEGATIVE Ur Tricyclic Antidepressants Screen POSITIVE H NEGATIVE Urine Phencyclidine Screen NEGATIVE NEGATIVE Urine Amphetamines Screen NEGATIVE NEGATIVE Urine Methamphetamines Screen NEGATIVE NEGATIVE Urine Benzodiazepines Screen POSITIVE H NEGATIVE Urine Cocaine Screen NEGATIVE NEGATIVE Urine Cannabinoids Screen NEGATIVE NEGATIVE My Orders Orders - NANCY FLYNN Cbc With Automated Diff (04/27/17 22:02) Comprehensive Metabolic Panel (04/27/17 22:02) Fibrin Degradation Products (04/27/17 22:02) Drug Screen Stat (Urine) (04/27/17 22:02) Magnesium (04/27/17 22:02) Troponin I (04/27/17 22:02) Ua Culture If Indicated (04/27/17 22:02) Chest Pa/Lat (2 View) (04/27/17 22:02) Saline Lock/Iv-Start (04/27/17 22:02) Ns Iv 1000 Ml (Sodium Chloride 0.9%) (04/27/17 22:02) Ekg Tracing (04/27/17 22:02) Urine Bedside (04/27/17 22:02) Manual Differential (04/27/17 22:15) Ketorolac Injection (Toradol Injection) (04/27/17 23:00) Medications Given in ED Current Medications Medications Dose Ordered Sig/Cali Route Start Time Stop Time Status Last Admin Dose Admin Ketorolac Tromethamine 15 mg ONCE ONCE IVP 04/27/17 23:00 04/27/17 23:01 DC 04/27/17 23:07 15 MG Sodium Chloride 1,000 ml @ 0 mls/hr Q0M ONCE IV 04/27/17 22:02 04/27/17 22:06 DC 04/27/17 22:10 0 MLS/HR Vital Signs/I&O Vital Sign - Last 12Hours 04/27/17 21:53 Temp 98.1 Pulse 109 Resp 18 B/P (MAP) 124/87 Pulse Ox 97 O2 Delivery Room Air Intake and Output 04/28/17 00:00 Intake Total 1000 ml Balance 1000 ml Blood Pressure Mean: 99 Progress Note #1: Time: 22:51 Progress Note Chest pain seems to pleuritic in nature but she has a little shortness of breath and a significant family history. We should also consider since she is on estrogen and smokes that she may have developed a clot however legs are nontender not red or swollen. So fairly intermediate to low risk. Progress Note #2: Time: 23:42 Progress Note Patient has a modest white count and a negative d-dimer. Chest x-ray doesn't show any infiltrates. Bronchitis is likely the cause of her reproducible pleuritic chest pain. Not sure why her alkaline phosphatase is elevated however she has a benign abdominal exam so we'll go ahead and treat her and let her follow up outpatient. ECG Initial ECG Impression Date: Apr 27, 2017 Initial ECG Impression Time: 22:30 Initial ECG Rate: 94 Initial ECG Rhythm: Normal Sinus Initial ECG Intervals: Normal Initial ECG Impression: Normal Initial ECG Comparisson: No Previous ECG Available Comment No T-wave elevation or depression. Diagnostic Imaging Diagonstic Imaging: Xray Plain Films/CT/US/NM/MRI: chest Comments No acute cardiopulmonary processes noted. Reviewed: Reviewed by Me Departure Impression Impression: Primary Impression: Bronchitis Disposition: 01 HOME, SELF-CARE Condition: Stable Departure-Patient Inst. Decision time for Depature: 23:42 Referrals: [facility] (PCP/Family) Primary Care Physician Patient Instructions: Acute Bronchitis, Adult (DC) Add. Discharge Instructions: Make sure drinking plenty of fluids. Use NSAIDs such as ibuprofen or Naprosyn to control your pain. Tylenols also reasonable choice. Humidifiers and vapor rubs will help. We will give you a shot of steroids which should start helping at about 12-24 hours. All discharge instructions reviewed with patient and/or family. Voiced understanding. Copy Copies To 1: OLIVIA JACKSON TITUS J Apr 27, 2017 22:07
[2017-04-27 22:18] LABS: BASOPHILS # (AUTO) 0.1 10^3/uL (0.0-0.1); BASOPHILS % (AUTO) 1 % (0-10); EOSINOPHILS # (AUTO) 0.1 10^3/uL (0.0-0.3); EOSINOPHILS % (AUTO) 1 % (0-10); LYMPHOCYTES # (AUTO) 3.3 X 10^3 (1.0-4.0); LYMPHOCYTES % (AUTO) 23 % (12-44); MEAN CORPUSCULAR HEMOGLOBIN 27 PG (25-34); MEAN CORPUSCULAR HGB CONC 33 G/DL (32-36); MEAN CORPUSCULAR VOLUME 82 FL (80-99); MEAN PLATELET VOLUME 9.3 FL (7.4-10.4); MONOCYTES # (AUTO) 0.8 X 10^3 (0.0-1.0); MONOCYTES % (AUTO) 5 % (0-12); NEUTROPHILS # (AUTO) 10.3 X 10^3 (1.8-7.8); NEUTROPHILS % (AUTO) 71 % (42-75); PLATELET COUNT 322 10^3/uL (130-400); RED BLOOD COUNT 4.87 10^6/uL (4.35-5.85); WHITE BLOOD COUNT 14.6 10^3/uL (4.3-11.0)
[2017-04-27 22:53] LABS: ANISOCYTOSIS SLIGHT; BASOPHILS % (MANUAL) 1 %; LYMPHOCYTES % (MANUAL) 17 %; NEUTROPHILS % (MANUAL) 76 %
[2017-04-27] MEDS ORDERED: KETOROLAC 30 MG/ML VIAL IVP ONE (23:00)
[2017-04-27 23:05] LABS: ALANINE AMINOTRANSFERASE 56 U/L (0-55); ALBUMIN 3.4 GM/DL (3.2-4.5); ANION GAP 8 MMOL/L (5-14); ASPARTATE AMINO TRANSFERASE 27 U/L (5-34); BILIRUBIN,TOTAL 0.2 MG/DL (0.1-1.0); BLOOD UREA NITROGEN 15 MG/DL (7-18); BUN/CREATININE RATIO 19; CALCIUM 8.7 MG/DL (8.5-10.1); CARBON DIOXIDE 25 MMOL/L (21-32); CHLORIDE 107 MMOL/L (98-107); CREATININE SERUM 0.78 MG/DL (0.60-1.30); GFR ESTIMATED > 60; GLUCOSE 97 MG/DL (70-105); MAGNESIUM 2.2 MG/DL (1.8-2.4); POTASSIUM 3.7 MMOL/L (3.6-5.0); SODIUM 140 MMOL/L (135-145); TOTAL PROTEIN 6.6 GM/DL (6.4-8.2)
[2017-04-27 23:06] LABS: BILIRUBIN,URINE NEGATIVE (NEGATIVE); KETONES,URINE NEGATIVE (NEGATIVE); LEUKOCYTE ESTERASE ,URINE NEGATIVE (NEGATIVE); NITRITE,URINE NEGATIVE (NEGATIVE); PH,URINE 6 (5-9); PROTEIN,URINE NEGATIVE (NEGATIVE); UROBILINOGEN,URINE NORMAL (NORMAL)
[2017-04-27 23:13] LABS: TROPONIN I < 0.30 NG/ML (<0.30)
[2017-04-27] MEDS ORDERED: DEXAMETHASONE 10 MG/ML (DECADRON) 1 ML VIAL IV ONE (23:45)
[2017-04-27 23:55] VITALS: BP 100/64
--- NOTE | 2017-04-28 08:15 | Diagnostic Imaging Report ---
PA and lateral views of the chest. INDICATION: Cough and congestion. FINDINGS: Minimal left basilar atelectasis. The right lung is clear. Heart size is normal. No effusion or pneumothorax. Mediastinum and jad appear unremarkable. IMPRESSION: Minimal left basilar atelectasis. Dictated by: Dictated on workstation # [id number]
== END 2017-04-27 23:51 | disposition home or self-care (01) ==
LOC: EDUNIT# 21:38 → ER 21:39
DX: J40 Bronchitis, not specified as acute or chronic (principal); G43.909 Migraine, unspecified, not intractable, without status migrainosus; K21.9 Gastro-esophageal reflux disease without esophagitis; F41.9 Anxiety disorder, unspecified; F32.9 Major depressive disorder, single episode, unspecified; F17.210 Nicotine dependence, cigarettes, uncomplicated; Z87.19 Personal history of other diseases of the digestive system; Z87.448 Personal history of other diseases of urinary system; Z82.49 Family history of ischemic heart disease and other diseases of the circulatory system; Z90.710 Acquired absence of both cervix and uterus
CPT/HCPCS: 36415; 71020; 80053; 80306; 81000; 83735; 84484; 84703; 85007; 85027; 85379; 93005; 96361; 96374; 96375

== ENCOUNTER → 2017-05-06 | Outpatient (CLI) | payer MEDICARE, MEDICAID ==
[~2017-05-06] MED LIST changes: +NAPR500T3; -NAPR500T4
--- NOTE | 2017-05-07 13:06 | Diagnostic Imaging Report ---
Thyroid scan and uptake Technique: After the oral administration of 192 ?Ci of I-123 capsule, 4 hour and 24-hour uptake is measured and plantar images over the thyroid gland obtained. Indication: R94.6 FINDINGS: Thyroid uptake at 4 hours is 24 %, and the at 24 hours is 47 %. Planar images demonstrate no evidence of a cold or hot nodule. IMPRESSION: Normal thyroid scan. Mild increased thyroid uptake. Dictated by: Dictated on workstation # [id number]
== END ==
LOC: CARD 11:02
PROVIDERS: ATTEND Nurse Practitioner Family
DX: R94.6 Abnormal results of thyroid function studies (principal)
CPT/HCPCS: 78014

== ENCOUNTER → 2017-05-22 | Outpatient (CLI) | payer MEDICARE, MEDICAID ==
--- NOTE | 2017-05-22 21:09 | Diagnostic Imaging Report ---
EXAMINATION: Three views of the right knee. INDICATION: Right knee pain. FINDINGS: There is no fracture, dislocation or radiopaque foreign body. No joint space narrowing or arthritic changes seen. No suprapatellar effusion. IMPRESSION: Unremarkable exam. Dictated by: Dictated on workstation # [id number]
--- NOTE | 2017-05-22 21:49 | Diagnostic Imaging Report ---
2 views of the left hip. INDICATION: Left hip pain. FINDINGS: No fracture, dislocation or radiopaque foreign body is seen. The joint line appears normal and there is no joint space narrowing seen. IMPRESSION: Unremarkable exam. Dictated by: Dictated on workstation # [id number]
== END ==
LOC: RAD 13:26
DX: M25.552 Pain in left hip (principal); M25.561 Pain in right knee
CPT/HCPCS: 73502; 73562

== ENCOUNTER 2017-07-06 08:00 | Emergency (ER) | payer MEDICARE, MEDICAID ==
[~2017-07-06] VITALS: Ht 177.8 cm; Wt 95.3 kg
[~2017-07-06 08:00] MED LIST changes: -NAPR500T3; +NAPR500T4
[2017-07-06 08:26] LABS: BILIRUBIN,URINE NEGATIVE (NEGATIVE); KETONES,URINE NEGATIVE (NEGATIVE); LEUKOCYTE ESTERASE ,URINE 1+ (NEGATIVE); NITRITE,URINE NEGATIVE (NEGATIVE); PH,URINE 6 (5-9); PROTEIN,URINE 2+ (NEGATIVE); UROBILINOGEN,URINE 1 MG/DL (NORMAL)
[2017-07-06 08:45] LABS: BASOPHILS # (AUTO) 0.1 10^3/uL (0.0-0.1); BASOPHILS % (AUTO) 1 % (0-10); EOSINOPHILS # (AUTO) 0.1 10^3/uL (0.0-0.3); EOSINOPHILS % (AUTO) 2 % (0-10); LYMPHOCYTES # (AUTO) 2.4 X 10^3 (1.0-4.0); LYMPHOCYTES % (AUTO) 34 % (12-44); MEAN CORPUSCULAR HEMOGLOBIN 28 PG (25-34); MEAN CORPUSCULAR HGB CONC 34 G/DL (32-36); MEAN CORPUSCULAR VOLUME 82 FL (80-99); MEAN PLATELET VOLUME 9.5 FL (7.4-10.4); MONOCYTES # (AUTO) 0.5 X 10^3 (0.0-1.0); MONOCYTES % (AUTO) 7 % (0-12); NEUTROPHILS # (AUTO) 3.9 X 10^3 (1.8-7.8); NEUTROPHILS % (AUTO) 57 % (42-75); PLATELET COUNT 314 10^3/uL (130-400); RED BLOOD COUNT 5.09 10^6/uL (4.35-5.85); RED CELL DISTRIBUTION WIDTH 16.7 % (10.0-14.5)
--- NOTE | 2017-07-06 09:11 | ED Back Pain ---
General Chief Complaint: Back Problems Stated Complaint: WHEN BREATHING, BACK HURTS Nursing Triage Note: pt reports mid back pain worse with inspiration. pt reports congestion as well. Nursing Sepsis Screen: No Definite Risk Source of Information: Patient Exam Limitations: No Limitations History of Present Illness Time Seen by Provider: 09:08 Initial Comments The patient is a 37-year-old black female well known to me. She presents this morning with complaints of back pain particularly when she takes a deep breath. She states this has been happening for 2-3 days. She is not aware of a fever. She denies dysuria or hematuria. She has had a slight cough. When asked to point to the pain she points to the mid lumbar spine. There has been no lifting or injury. Timing/Duration: 2-3 Days Severity: Moderate Pain/Injury Location: Back Allergies and Home Medications Allergies Coded Allergies: pregabalin (Verified Adverse Reaction, Intermediate, 12/07/16) Rhabdomyolysis meperidine (Verified Adverse Reaction, Mild, NAUSEA, 12/07/16) morphine (Verified Adverse Reaction, Mild, NAUSEA, 09/13/07) Uncoded Allergies: STEROID PILLS (Allergy, Unknown, 11/15/13) Home Medications Alprazolam 1 Mg Tablet, #56 (Reported) Cyclobenzaprine HCl 10 Mg Tablet, #60 (Reported) Dicyclomine HCl 20 Mg Tablet, 20 MG PO ACHS, #30 Prescribed by: RAFA ALVARENGA on 12/19/16 1251 Estradiol 2 Mg Tablet, #21 (Reported) Furosemide 20 Mg Tablet, 20 MG PO DAILY, (Reported) Methylprednisolone Acetate 80 Mg/Ml Vial, 160 MG IJ MONTHLY, (Reported) Metronidazole 500 Mg Tablet, 500 MG PO BID for 7 Days, (Reported) Nabumetone 750 Mg Tablet, 750 MG PO BID, #14 Ref 1 Prescribed by: BAR MINOR on 02/18/17 1753 Naproxen 500 Mg Tablet, 500 MG PO BID PRN for PAIN, #20 Prescribed by: RAFA ALVARENGA on 09/12/16 1058 Ondansetron 4 Mg Tab.rapdis, 4 MG SL Q4H PRN for NAUSEA/VOMITING-1ST LINE, #10 Prescribed by: JENNA MCDANIELS on 12/07/16 0930 [Flexeril] , 5 MG PO TID PRN for PAIN, #20 Prescribed by: RAFA ALVARENGA on 09/12/16 1058 Constitutional: see HPI EENTM: no symptoms reported Respiratory: short of breath Cardiovascular: no symptoms reported Gastrointestinal: no symptoms reported Genitourinary: no symptoms reported Musculoskeletal: no symptoms reported Skin: no symptoms reported Psychiatric/Neurological: No Symptoms Reported Past Rawxrwd-Ufzyxw-Jszxnu Hx Patient Social History Alcohol Use: Denies Use Recreational Drug Use: No Type Used: Cigars 2nd Hand Smoke Exposure: Yes Recent Foreign Travel: No Contact w/Someone Who Travel: No Recent Infectious Disease Expo: No Recent Hopitalizations: Yes (MULTIPLE E.D. VISITS) Physical Abuse: No (PAST) Sexual Abuse: No Mistreated: No Fear: No Immunizations Up To Date Tetanus Booster (TDap): Unknown Date of Influenza Vaccine: May 15, 2016 Seasonal Allergies Seasonal Allergies: Yes Surgeries History of Surgeries: Yes (TEAR REPAIR AFTER VAG , DX LAP FOR ENDOMETRIOSIS/OVARIAN CYSTS,EGD) Surgeries: Abdominal, Appendectomy, Gallbladder, Hysterectomy, Oophorectomy Respiratory History of Respiratory Disorde: No Cardiovascular History of Cardiac Disorders: No Neurological History of Neurological Disord: Yes (CHRONIC FATIGUE SYNDROME, FIBROMYALGIA) Neurological Disorders: Headaches /Migraines 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 System Hx 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 Disorders: Yes Sexually Transmitted Disease: No Female 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 Disorders: 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, Ovarian Cyst 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 Genitourinary History of Genitourinary Disor: No Gastrointestinal History of Gastrointestinal Di: Yes (CHRONIC NAUSEA AND ABDOMINAL PAIN ) Gastrointestinal Disorders: Gastroesophageal Reflux, Diverticulosis Musculoskeletal History of Musculoskeletal Dis: Yes (CHRONIC FATIGUE SYNDROME, CHRONIC NECK PAIN AND GENERALIZED PAIN ) Musculoskeletal Disorders: Fibromyalgia, Chronic Back Pain Endocrine History of Endocrine Disorders: Yes (STATES "HYPOGLYCEMIA") HEENT History of HEENT Disorders: No Cancer History of Cancer: No Psychosocial History of Psychiatric Problem: Yes Behavioral Health Disorders: Anxiety, Depression Suicide Risk Score: 0 Integumentary History of Skin or Integumenta: No Blood Transfusions History of Blood Disorders: No Family Medical History Significant Family History: No Pertinent Family Hx Family Medial History: Cancer Cataract Family history: Allergy Family history: Arthritis Family history: Asthma Family history: Breast disease Family history: Diabetes mellitus Family history: Hypertension Family history: Osteoporosis Family history: Thyroid disorder Headache Heart disease Hypercholesterolemia Psychotic disorder Seizure disorder No Family History of: Abdominal aortic aneurysm [place]'s disease Alcoholism Aphasia Cancer of colon Chest pain Congenital heart disease Congestive heart failure Cystic fibrosis Dementia Dysphagia Family history: Alzheimer's disease Family history: Cardiovascular disease Family history: Coronary thrombosis Family history: Gastrointestinal disease Family history: Glaucoma Hearing loss Hereditary disease History of - anemia History of - disorder History of - respiratory disease History of drug abuse Human immunodeficiency virus (HIV) seropositivity Infertile Kidney disease Malignant neoplasm of lung Myocardial infarction Parkinson's disease Prostate cancer Stroke Tuberculosis Visual impairment Physical Exam Vital Signs Vital Sign - Last 12Hours 07/06/17 08:08 Temp 98.2 Pulse 105 Resp 18 B/P (MAP) 118/86 Pulse Ox 99 Capillary Refill : Less Than 3 Seconds General Appearance: No Apparent Distress, WD/WN Neck: Normal Inspection Cardiovascular: Regular Rate, Rhythm, No Edema, No Gallop, No JVD, No Murmur, Normal Peripheral Pulses Respiratory: Chest Non Tender, Lungs Clear, Normal Breath Sounds, No Accessory Muscle Use, No Respiratory Distress, Accessory Muscle Use Gastrointestinal: Normal Bowel Sounds, No Organomegaly, No Pulsatile Mass, Non Tender, Soft Back: Normal Inspection, No CVA Tenderness, No Vertebral Tenderness, Other Extremity: Normal Inspection Neurologic/Psychiatric: Alert, Oriented x3, No Motor/Sensory Deficits, Normal Mood/Affect, manager [facility] II-XII Norm as Tested, Abnormal Cerebellar Tests Skin: Normal Color, Warm/Dry, Cool, Cyanosis Progress/Results/Core Measures Results/Orders Lab Results Laboratory Tests Test 07/06/17 08:20 07/06/17 08:38 Range/Units Urine Color YELLOW Urine Clarity SLIGHTLY CLOUDY Urine pH 6 5-9 Urine Specific [place] 1.020 1.016-1.022 Urine Protein 2+ H NEGATIVE Urine Glucose (UA) NEGATIVE NEGATIVE Urine Ketones NEGATIVE NEGATIVE Urine Nitrite NEGATIVE NEGATIVE Urine Bilirubin NEGATIVE NEGATIVE Urine Urobilinogen 1 NORMAL MG/DL Urine Leukocyte Esterase 1+ H NEGATIVE Urine RBC (Auto) NEGATIVE NEGATIVE Urine RBC NONE /HPF Urine WBC 10-25 H /HPF Urine Squamous Epithelial Cells 10-25 H /HPF Urine Crystals PRESENT H /LPF Urine Amorphous Sediment MOD CHAD URATES H /LPF Urine Bacteria FEW H /HPF Urine Casts NONE /LPF Urine Mucus SMALL H /LPF Urine Culture Indicated YES White Blood Count 7.0 4.3-11.0 10^3/uL Red Blood Count 5.09 4.35-5.85 10^6/uL Hemoglobin 14.1 11.5-16.0 G/DL Hematocrit 42 35-52 % Mean Corpuscular Volume 82 80-99 FL Mean Corpuscular Hemoglobin 28 25-34 PG Mean Corpuscular Hemoglobin Concent 34 32-36 G/DL Red Cell Distribution Width 16.7 H 10.0-14.5 % Platelet Count 314 130-400 10^3/uL Mean Platelet Volume 9.5 7.4-10.4 FL Neutrophils (%) (Auto) 57 42-75 % Lymphocytes (%) (Auto) 34 12-44 % Monocytes (%) (Auto) 7 0-12 % Eosinophils (%) (Auto) 2 0-10 % Basophils (%) (Auto) 1 0-10 % Neutrophils # (Auto) 3.9 1.8-7.8 X 10^3 Lymphocytes # (Auto) 2.4 1.0-4.0 X 10^3 Monocytes # (Auto) 0.5 0.0-1.0 X 10^3 Eosinophils # (Auto) 0.1 0.0-0.3 10^3/uL Basophils # (Auto) 0.1 0.0-0.1 10^3/uL Sodium Level 142 135-145 MMOL/L Potassium Level 4.1 3.6-5.0 MMOL/L Chloride Level 107 98-107 MMOL/L Carbon Dioxide Level 27 21-32 MMOL/L Anion Gap 8 5-14 MMOL/L Blood Urea Nitrogen 11 7-18 MG/DL Creatinine 0.75 0.60-1.30 MG/DL Estimat Glomerular Filtration Rate > 60 BUN/Creatinine Ratio 15 Glucose Level 94 70-105 MG/DL Calcium Level 9.3 8.5-10.1 MG/DL Total Bilirubin 0.3 0.1-1.0 MG/DL Aspartate Amino Transf (AST/SGOT) 17 5-34 U/L Alanine Aminotransferase (ALT/SGPT) 27 0-55 U/L Alkaline Phosphatase 130 40-136 U/L Total Protein 7.7 6.4-8.2 GM/DL Albumin 3.9 3.2-4.5 GM/DL My Orders Orders - TIFFANY SAUCEDO MD Cbc With Automated Diff (07/06/17 08:09) Comprehensive Metabolic Panel (07/06/17 08:09) Ua Culture If Indicated (07/06/17 08:09) Urine Culture (07/06/17 08:20) Chest 1 View, Ap/Pa Only (07/06/17 08:58) Vital Signs/I&O Vital Sign - Last 12Hours 07/06/17 08:08 Temp 98.2 Pulse 105 Resp 18 B/P (MAP) 118/86 Pulse Ox 99 Blood Pressure Mean: 97 Departure Communication (Admissions) Progress Notes UA shows the WBC is consistent with UTI. Chest x-ray is negative. Impression Impression: Primary Impression: UTI Disposition: HOME, SELF-CARE Condition: Stable/Unchanged Departure-Patient Inst. Decision time for Depature: 09:57 Referrals: ALLYSON QUIROZ MD (PCP/Family) Primary Care Physician Add. Discharge Instructions: All discharge instructions reviewed with patient and/or family. Voiced understanding. Beginning tomorrow morning take her prescription as ordered. Scripts Cephalexin (Keflex) 500 Mg Capsule 500 MG PO 3 TIMES A DAY, #21 CAP Prov: TIFFANY SAUCEDO MD 07/06/17 TIFFANY SAUCEDO MD Jul 06, 2017 09:11
[2017-07-06 09:17] LABS: ALANINE AMINOTRANSFERASE 27 U/L (0-55); ALBUMIN 3.9 GM/DL (3.2-4.5); ANION GAP 8 MMOL/L (5-14); ASPARTATE AMINO TRANSFERASE 17 U/L (5-34); BILIRUBIN,TOTAL 0.3 MG/DL (0.1-1.0); BLOOD UREA NITROGEN 11 MG/DL (7-18); BUN/CREATININE RATIO 15; CALCIUM 9.3 MG/DL (8.5-10.1); CARBON DIOXIDE 27 MMOL/L (21-32); CHLORIDE 107 MMOL/L (98-107); CREATININE SERUM 0.75 MG/DL (0.60-1.30); GFR ESTIMATED > 60; GLUCOSE 94 MG/DL (70-105); POTASSIUM 4.1 MMOL/L (3.6-5.0); SODIUM 142 MMOL/L (135-145); TOTAL PROTEIN 7.7 GM/DL (6.4-8.2)
--- NOTE | 2017-07-06 09:25 | Diagnostic Imaging Report ---
INDICATION: Shortness of air, hysterectomy. COMPARISON: 04/27/2017 Some slight subsegmental curvilinear atelectasis in the left base present. The lungs otherwise clear. There were no findings of pneumonia or edema. No pleural fluid or pneumothorax. Heart size and vascularity within normal limits. IMPRESSION: Slight left basilar subsegmental atelectasis, otherwise negative. Dictated by: Dictated on workstation # [id number]
[2017-07-06] MEDS ORDERED: CEPH-507 PO (09:58)
[2017-07-06 10:00] VITALS: BP 118/86
[2017-07-06] MEDS ORDERED: cefTRIAXone 1 GM (ROCEPHIN) VIAL IM ONE (10:00)
[2017-07-06] MEDS ORDERED: LIDOCAINE 1% INJ 20 ML (XYLOCAINE) VIAL INJ ONE (10:00)
[2017-07-06] MEDS ORDERED: proPOfol 200 MG/20 ML (DIPRIVAN) VIAL IV ONE (10:13)
[2017-07-06] MEDS ORDERED: PROPOFOL DRIP (ICU) 0 ML IV ONE (10:13)
== END 2017-07-06 10:00 ==
LOC: EDUNIT# 08:00 → ER 08:01
DX: N39.0 Urinary tract infection, site not specified (principal); F41.9 Anxiety disorder, unspecified; F32.9 Major depressive disorder, single episode, unspecified; K21.9 Gastro-esophageal reflux disease without esophagitis; G43.909 Migraine, unspecified, not intractable, without status migrainosus; Z90.49 Acquired absence of other specified parts of digestive tract; Z90.710 Acquired absence of both cervix and uterus; Z87.42 Personal history of other diseases of the female genital tract; Z82.49 Family history of ischemic heart disease and other diseases of the circulatory system
CPT/HCPCS: 36415; 71010; 80053; 81000; 85025; 87088

== ENCOUNTER → 2017-09-18 | Outpatient (CLI) | payer MEDICARE, MEDICAID ==
[~2017-09-18] MED LIST changes: +NAPR-1071 PO; -NAPR500T PO
--- NOTE | 2017-09-18 10:00 | Diagnostic Imaging Report ---
INDICATION: Back pain. COMPARISON: None. FINDINGS: Three views of the lumbar spine demonstrate normal alignment. There is no subluxation or fracture. No degeneration seen. No osseous lesion. IMPRESSION: Negative lumbar spine. Dictated by: Dictated on workstation # [id number]
== END ==
LOC: RAD 08:49
PROVIDERS: ATTEND Nurse Practitioner Family
DX: M54.5 Low back pain (principal)
CPT/HCPCS: 72100

== ENCOUNTER 2018-05-12 19:29 | Emergency (ER) | payer MEDICARE, MEDICAID ==
[~2018-05-12] VITALS: Ht 177.8 cm; Wt 95.3 kg
[~2018-05-12 19:29] MED LIST changes: +NAPR-915; -NAPR500T4
--- OUTSIDE RECORDS SUMMARY | 2018-05-12 19:44 | XMS REPORT | Continuity of Care Document ---
Author Author [facility] Organization [facility] Address Unknown Phone Unavailable Allergies Active Description Code Type Severity Reaction Onset Reported/Identified Relationship to Patient Clinical Status Yes morphine [id number] Drug Allergy Mild NAUSEA 09/13/2007 Yes STEROID PILLS STEROID PILLS Unknown N/A 11/15/2013 Yes pregabalin [id number] Drug Allergy Moderate N/A 12/07/2016 Yes meperidine [id number] Drug Allergy Mild NAUSEA 12/07/2016 Medications There is no data. Problems Date Dx Coded Attending Type Code [...] 06/06/2014 ELLYN LANCE, JENNA Perry Ot 459.89 CIRCULATORY DISEASE NEC 06/06/2014 JENNA RAGLAND MD Ot 599.0 URIN TRACT INFECTION NOS 06/06/2014 JENNA RAGLAND MD Ot 729.82 CRAMP IN LIMB 07/06/2014 PAULINA SALAS MD Ot 305.1 07/06/2014 PAULINA SALAS MD Ot 440.20 07/06/2014 PAULINA SALAS MD Ot 729.5 09/08/2014 TIFFANY SAUCEDO MD Ot 564.00 UNSPEC CONSTIPATION 09/08/2014 TIFFANY SAUCEDO MD Ot 599.0 URIN TRACT INFECTION NOS 09/08/2014 TIFFANY SAUCEDO MD Ot 789.07 ABDOMINAL PAIN, GENERALIZED 10/24/2014 Ot 729.5 PAIN IN LIMB 10/24/2014 Ot 786.50 CHEST PAIN NOS 11/17/2014 DANDRE LANCE, ANN Akins Ot 788.30 11/25/2014 DANDRE LANCE, ANN Akins Ot 788.30 11/30/2014 ANN AMOS MD Ot 788.30 12/02/2014 PAULINA SALAS MD Ot 719.45 12/02/2014 PAULINA SALAS MD Ot [...] PAULINA Lock Ot 719.45 12/02/2014 MARITZA LANCE, PAULINA J Ot 729.1 12/02/2014 MARITZA LANCE, PAULINA J Ot 729.5 12/02/2014 MARITZA LANCE, PAUILNA Lock Ot 782.3 12/02/2014 MARITZA LANCE, PAULINA J Ot 784.0 12/02/2014 MARITZA LANCE, PAULINA Lock Ot V57.1 12/02/2014 MARITZA LANCE, PAULINA J [...] J Ot 729.5 12/02/2014 MARITZA LANCE, PAULINA Lock Ot 782.3 12/02/2014 MARITZA LANCE, PAULINA Lock Ot 784.0 12/02/2014 MARITZA LANCE, PAULINA Lock Ot V57.1 12/02/2014 MARITZA LANCE, PAULINA J [...] ALI FACP CCDS Ot 729.1 01/04/2015 DHIRAJ MD FACC, ALI FACP CCDS Ot 729.81 01/04/2015 DHIRAJ MD FACC, ALI FACP CCDS Ot 780.79 01/04/2015 DHIRAJ MD FACC, ALI FACP CCDS Ot 786.09 01/04/2015 DHIRAJ MD FACC, ALI FACP CCDS Ot 786.59 01/04/2015 DHIRAJ MD FACC, ALI FACP CCDS Ot 305.1 01/04/2015 DHIRAJ MD FACC, ALI FACP CCDS Ot 729.1 01/04/2015 DHIRAJ MD FACC, ALI FACP CCDS Ot 729.81 01/04/2015 DHIRAJ MD FACC, ALI FACP CCDS Ot 780.79 01/04/2015 DHIRAJ MD FAC, ALI FACP CCDS Ot 786.09 01/04/2015 DHIRAJ MD FACC, ALI FACP CCDS Ot 786.59 01/09/2015 MARITZA LANCE, PAULINA J Ot 719.45 01/09/2015 MARITZA LANCE, [facility] Ot 729.1 01/09/2015 MARITZA LANCE, PAULINA J [...] J Ot 729.1 01/09/2015 MARITZA LANCE, PAULINA Lock Ot 729.5 01/09/2015 MARITZA LANCE, PAULINA Lock Ot 782.3 01/09/2015 MARITZA LANCE, PAULINA Lock Ot 784.0 01/09/2015 MARITZA LANCE, PAULINA Lock Ot V57.1 01/09/2015 MARITZA LANCE, PAULINA Lock Ot 719.45 01/09/2015 MARITZA LANCE, PAULINA Lock Ot 729.1 01/09/2015 MARITZA LANCE, PAULINA Lock Ot 729.5 01/09/2015 PAULINA SALAS MD Ot 782.3 01/09/2015 MARITZA LANCE, PAULINA Lock Ot 784.0 01/09/2015 PAULINA SALAS MD Ot V57.1 01/11/2015 DHIRAJ LANCE FAC, ALI FACP CCDS Ot 305.1 01/11/2015 DHIRAJ LNACE FACC, ALI FACP CCDS Ot 729.1 01/11/2015 [...] FACP CCDS Ot 786.09 01/11/2015 DHIRAJ LANCE FAC, ALI FACP CCDS Ot 786.59 01/18/2015 MARITZA LANCE, PAULINA Lock Ot 719.45 JOINT PAIN-PELVIS 01/18/2015 MARITZA LANCE, PAULINA Lock Ot 729.1 MYALGIA AND MYOSITIS NOS 01/18/2015 PAULINA SALAS MD Ot 729.5 PAIN IN LIMB 01/18/2015 MARITZA LANCE, PAULINA Lock Ot 782.3 EDEMA 01/18/2015 MARITZA LANCE, PAULINA Lock Ot 784.0 HEADACHE 01/18/2015 PAULINA SALAS MD Ot V57.1 PHYSICAL THERAPY NEC 02/01/2015 DHIRAJ LANCE FACC, ALI FACP CCDS Ot 305.1 02/01/2015 DHIRAJ LANCE FACC, ALI FACP CCDS Ot 729.1 02/01/2015 DHIRAJ LANCE FACC, ALI FACP CCDS Ot 729.81 02/01/2015 DHIRAJ LANCE FACC, ALI FACP CCDS Ot 780.79 02/01/2015 DHIRAJ LANCE FACC, ALI FACP CCDS Ot 786.09 02/01/2015 DHIRAJ LANCE FACC, ALI FACP CCDS Ot 786.59 05/16/2015 DHIRAJ LANCE FACC, ALI FACP CCDS Ot 305.1 05/16/2015 DHIRAJ LANCE FACC, ALI FACP CCDS Ot 729.1 05/16/2015 DHIRAJ LANCE FACC, ALI FACP CCDS Ot 729.81 05/16/2015 DHIRAJ [...] MARITZA LANCE, PAULINA Lock Ot 440.20 ATHEROSCLEROSIS [place] ARTERIES EXTREMIT 09/12/2016 MARITZA LANCE, PAULINA Lock Ot 729.5 PAIN IN LIMB 09/12/2016 DANDRE [...] 786.59 CHEST PAIN NEC 09/12/2016 RAFA ALVARENGA [employer] Ot G89.29 OTHER CHRONIC PAIN 09/12/2016 RAFA ALVARENGA [employer] Ot M43.6 TORTICOLLIS 09/12/2016 RAFA ALVARENGA [employer] Ot M54.2 CERVICALGIA 09/12/2016 RAFA ALVARENGA [employer] Ot M79.7 FIBROMYALGIA 09/13/2016 RAFA ALVARENGA [employer] Ot G89.29 OTHER CHRONIC PAIN 09/13/2016 RAFA ALVARENGA [employer] Ot M43.6 TORTICOLLIS 09/13/2016 RAFA ALVARENGA [employer] Ot M54.2 CERVICALGIA 09/13/2016 RAFA ALVARNEGA [employer] Ot M79.7 FIBROMYALGIA 09/19/2016 RAFA ALVARENGA [employer] Ot G89.29 OTHER CHRONIC PAIN 09/19/2016 RAFA ALVARENGA [employer] Ot M43.6 TORTICOLLIS 09/19/2016 RAFA ALVARENGA [employer] Ot M54.2 CERVICALGIA 09/19/2016 RAFA ALVARENGA [employer] Ot M79.7 FIBROMYALGIA 11/28/2016 DANDRE LANCE, ANN Akins Ot 788.30 UNSPECIFIED URINARY INCONTINENCE 11/28/2016 DHIRAJ LANCE FAC, ALI FACP CCDS Ot 305.1 TOBACCO USE DISORDER 11/28/2016 DHIRAJ LANCE FACC, ALI FACP CCDS Ot 729.1 MYALGIA AND MYOSITIS NOS 11/28/2016 DHIRAJ LANCE FACC, ALI FACP CCDS Ot 729.81 SWELLING OF LIMB 11/28/2016 DHIRAJ LANCE FACC, ALI FACP CCDS Ot 780.79 OTH MALAISE FATIGUE 11/28/2016 DHIRAJ LANCE FACC, ALI FACP CCDS Ot 786.09 RESPIRATORY ABNORM NEC 11/28/2016 DHIRAJ LANCE FACC, ALI FACP CCDS Ot 786.59 CHEST PAIN NEC 11/28/2016 RAFA ALVARENGA [employer] Ot F17.210 NICOTINE DEPENDENCE, CIGARETTES, UNCOMPL 11/28/2016 RAFA ALVARENGA [employer] Ot R07.9 CHEST PAIN, UNSPECIFIED 11/28/2016 RAFA ALVARENGA [employer] Ot Z79.899 OTHER PRISON (CURRENT) DRUG THERAPY 11/29/2016 RAFA ALVARENGA [employer] Ot F17.210 NICOTINE DEPENDENCE, CIGARETTES, UNCOMPL 11/29/2016 RAFA ALVARENGA [employer] Ot R07.9 CHEST PAIN, UNSPECIFIED 11/29/2016 RAFA ALVARENGA [employer] Ot 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 11/30/2016 RAFA ALVARENGA [employer] Ot F17.210 NICOTINE DEPENDENCE, CIGARETTES, UNCOMPL 11/30/2016 RAFA ALVARENGA [employer] Ot R07.9 CHEST PAIN, UNSPECIFIED 11/30/2016 RAFA ALVARENGA [employer]AL Ot 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 12/02/2016 DANDRE LANCE, ANN Akins Ot 788.30 UNSPECIFIED URINARY INCONTINENCE 12/02/2016 DHIRAJ LANCE FAC, ALI FACP CCDS Ot 305.1 TOBACCO USE DISORDER 12/02/2016 DHIRAJ WADDELLC, ALI FACP CCDS Ot 729.1 MYALGIA AND MYOSITIS NOS 12/02/2016 DHIRAJ WADDELLC, ALI FACP CCDS Ot 729.81 SWELLING OF LIMB 12/02/2016 DHIRAJ WADDELLC, ALI FACP CCDS Ot 780.79 OTH MALAISE FATIGUE 12/02/2016 DHIRAJ WADDELL, ALI FACP CCDS Ot 786.09 RESPIRATORY ABNORM NEC 12/02/2016 DHIRAJ WADDELL, ALI FACP CCDS Ot 786.59 CHEST PAIN NEC 12/02/2016 JENNA RAGLAND MD Ot F17.210 NICOTINE DEPENDENCE, CIGARETTES, UNCOMPL 12/02/2016 JENNA RAGLAND MD Ot M54.2 CERVICALGIA 12/02/2016 JENNA RAGLAND MD Ot M62.82 RHABDOMYOLYSIS 12/02/2016 JENNA RAGLAND MD Ot M79.1 MYALGIA 12/04/2016 ANN AMOS MD Ot 788.30 UNSPECIFIED URINARY INCONTINENCE 12/04/2016 DHIRAJ WADDELLC, ALI FACP CCDS Ot 305.1 TOBACCO USE DISORDER 12/04/2016 DHIRAJ LANCE FACC, ALI FACP CCDS Ot 729.1 MYALGIA AND MYOSITIS NOS 12/04/2016 DHIRAJ LANCE FACC, ALI FACP CCDS Ot 729.81 SWELLING OF LIMB 12/04/2016 DHIRAJ WADDELLC, ALI FACP CCDS Ot 780.79 OTH MALAISE FATIGUE 12/04/2016 DHIRAJ LANCE FAC, ALI FACP CCDS Ot 786.09 RESPIRATORY ABNORM NEC 12/04/2016 DHIRAJ LANCE FAC, ALI FACP CCDS Ot 786.59 CHEST PAIN [...] 12/07/2016 JENNA RAGLAND MD Ot 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 12/07/2016 Ot 276.51 DEHYDRATION [...] 12/09/2016 JENNA RAGLAND MD Ot Z79.899 OTHER PRISON (CURRENT) DRUG THERAPY 12/11/2016 JENNA RAGLAND MD Ot F17.210 NICOTINE DEPENDENCE, CIGARETTES, UNCOMPL 12/11/2016 JENNA RAGLAND MD Ot M54.5 LOW BACK PAIN 12/11/2016 JENNA RAGLAND MD Ot M62.82 RHABDOMYOLYSIS 12/11/2016 ELLYN LANCE, JENNA Perry Ot M79.7 FIBROMYALGIA 12/11/2016 ELLYN LANCE, JENNA Perry Ot R11.2 NAUSEA WITH VOMITING, UNSPECIFIED 12/11/2016 ELLYN LANCE, JENNA Perry Ot 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 12/19/2016 RAFA ALVARENGA [employer] Ot F17.210 NICOTINE DEPENDENCE, CIGARETTES, UNCOMPL 12/19/2016 RAFA ALVARENGA [employer] Ot G89.29 OTHER CHRONIC PAIN 12/19/2016 RAFA ALVARENGA [employer] Ot K58.0 IRRITABLE BOWEL SYNDROME WITH DIARRHEA 12/19/2016 RAFA ALVARENGA [employer]AL Ot R11.0 NAUSEA 12/19/2016 RAFA ALVARENGA [employer]AL Ot Z79.899 OTHER PRISON (CURRENT) DRUG THERAPY 12/25/2016 RAFA ALVARENGA [employer]AL Ot F17.210 NICOTINE DEPENDENCE, CIGARETTES, UNCOMPL 12/25/2016 RAFA ALVARENGA [employer] Ot G89.29 OTHER CHRONIC PAIN 12/25/2016 RAFA ALVARENGA [employer]AL Ot K58.0 IRRITABLE BOWEL SYNDROME WITH DIARRHEA 12/25/2016 RAFA ALVARENGA [employer]AL Ot R11.0 NAUSEA 12/25/2016 RAFA ALVARENGA [employer]INCIPAL Ot Z79.899 OTHER PRISON (CURRENT) DRUG THERAPY 12/27/2016 MOMO GILBERT Ot M62.82 RHABDOMYOLYSIS 01/23/2017 RAFA ALVARENGA [employer]AL Ot F17.210 NICOTINE DEPENDENCE, CIGARETTES, UNCOMPL 01/23/2017 RAFA ALVARENGA [employer] Ot R22.1 LOCALIZED SWELLING, MASS AND LUMP, NECK 01/23/2017 Ot 789.01 ABDOMINAL PAIN, RIGHT UPPER QUADRANT 01/23/2017 Ot 789.59 OTHER ASCITES 01/23/2017 MARITZA LANCE, PAULINA Lock Ot 305.1 TOBACCO USE DISORDER 01/23/2017 MARITZA LANCE, PAULINA Lock Ot 440.20 ATHEROSCLEROSIS [place] ARTERIES EXTREMIT 01/23/2017 PAULINA SALAS MD Ot 729.5 PAIN IN LIMB 01/23/2017 DANDRE LANCE, ANN Akins Ot 788.30 UNSPECIFIED URINARY INCONTINENCE 01/23/2017 DHIRAJ LANCE FACC, ALI FACP CCDS Ot 305.1 TOBACCO USE DISORDER 01/23/2017 DHIRAJ LANCE [facility] CCDS Ot 729.1 MYALGIA AND MYOSITIS NOS 01/23/2017 DHIRAJ LANCE [facility], [facility] FACP CCDS Ot 729.81 SWELLING OF LIMB 01/23/2017 DHIRAJ LANCE [facility], [facility] FACP CCDS Ot 780.79 OTH MALAISE FATIGUE 01/23/2017 DHIRAJ LANCE [facility], [facility] FACP CCDS Ot 786.09 RESPIRATORY ABNORM NEC 01/23/2017 DHIRAJ LANCE [facility], [facility] FACP CCDS Ot 786.59 CHEST PAIN NEC 02/07/2017 TIFFANY SAUCEDO MD Ot F17.210 NICOTINE DEPENDENCE, CIGARETTES, UNCOMPL 02/07/2017 TIFFANY SAUCEDO MD Ot F41.8 OTHER SPECIFIED ANXIETY DISORDERS 02/07/2017 TIFFANY SAUCEDO MD Ot G43.909 MIGRAINE, UNSP, NOT INTRACTABLE, WITHOUT 02/07/2017 TIFFANY SAUCEDO MD Ot K21.9 GASTRO-ESOPHAGEAL REFLUX DISEASE WITHOUT 02/07/2017 TIFFANY SAUCEDO MD Ot K58.9 IRRITABLE BOWEL SYNDROME WITHOUT DIARRHE 02/07/2017 TIFFANY SAUCEDO MD Ot R10.84 GENERALIZED ABDOMINAL PAIN 02/07/2017 TIFFANY SAUCEDO MD Ot Z90.49 ACQUIRED ABSENCE OF OTHER SPECIFIED PART 02/07/2017 TIFFANY SAUECDO MD Ot Z90.89 ACQUIRED ABSENCE OF OTHER ORGANS 02/10/2017 TIFFANY SAUCEDO MD Ot F17.210 NICOTINE [...] Z90.89 ACQUIRED ABSENCE OF OTHER ORGANS 02/12/2017 ALUTIIQONEIL NIEVES MD Ot R10.9 UNSPECIFIED ABDOMINAL PAIN 02/13/2017 [...] BROOKS MD Ot R10.9 UNSPECIFIED ABDOMINAL PAIN 02/18/2017 MILY, BAR [employer] TEMP Ot F17.210 NICOTINE DEPENDENCE, CIGARETTES, UNCOMPL 02/18/2017 MILY, [employer] TEMP Ot F32.9 MAJOR DEPRESSIVE DISORDER, SINGLE EPISOD 02/18/2017 MILY, [employer] TEMP Ot F41.9 ANXIETY DISORDER, UNSPECIFIED 02/18/2017 MILY, [employer] TEMP Ot G43.909 MIGRAINE, UNSP, NOT INTRACTABLE, WITHOUT 02/18/2017 MILY, [employer] TEMP Ot G89.29 OTHER CHRONIC PAIN 02/18/2017 MILY, [employer] TEMP Ot K21.9 GASTRO-ESOPHAGEAL REFLUX DISEASE WITHOUT 02/18/2017 MILY, [employer] TEMP Ot M26.603 BILATERAL TEMPOROMANDIBULAR JOINT DISORD 02/18/2017 MILY, [employer] TEMP Ot M54.9 DORSALGIA, UNSPECIFIED 02/18/2017 MILY, [employer] TEMP Ot R10.84 GENERALIZED ABDOMINAL PAIN 02/18/2017 MILY, [employer] TEMP Ot R53.82 CHRONIC FATIGUE, UNSPECIFIED 02/18/2017 MILY, [employer] TEMP Ot R68.84 JAW PAIN 02/18/2017 BAR MINORP Ot Z87.42 PERSONAL HISTORY OF OTH DISEASES OF THE 02/18/2017 BAR MINORP Ot Z90.49 ACQUIRED ABSENCE OF OTHER SPECIFIED PART 02/18/2017 BAR MINORP Ot Z90.710 ACQUIRED ABSENCE OF BOTH CERVIX AND UTER 02/18/2017 BAR MINORP Ot Z90.721 ACQUIRED ABSENCE OF OVARIES, UNILATERAL 03/06/2017 CECILIA LANCE, ONEIL Shoemaker Ot R10.9 UNSPECIFIED ABDOMINAL PAIN 03/24/2017 JESUS LANCE, INGRID Melendez Ot R10.11 RIGHT UPPER QUADRANT PAIN 03/24/2017 JESUS LANCE, INGRID Melendez Ot Z90.49 ACQUIRED ABSENCE OF OTHER SPECIFIED PART 04/01/2017 SANAM FRANK DO Ot F17.210 NICOTINE DEPENDENCE, CIGARETTES, UNCOMPL 04/01/2017 SANAM FRANK DO Ot F32.9 MAJOR DEPRESSIVE DISORDER, SINGLE EPISOD 04/01/2017 SANAM FRANK DO Ot F41.9 ANXIETY DISORDER, UNSPECIFIED 04/01/2017 SANAM FRANK DO Ot G43.909 MIGRAINE, UNSP, NOT INTRACTABLE, WITHOUT 04/01/2017 SANAM FRANK DO Ot G89.29 OTHER CHRONIC PAIN 04/01/2017 SANAM FRANK DO Ot K21.9 GASTRO-ESOPHAGEAL REFLUX DISEASE WITHOUT 04/01/2017 SANAM FRANK DO Ot M79.7 FIBROMYALGIA 04/01/2017 SANAM FRANK DO Ot N39.0 URINARY TRACT INFECTION, SITE NOT SPECIF 04/01/2017 SANAM FRANK DO Ot R52 PAIN, UNSPECIFIED 04/01/2017 SANAM FRANK DO Ot R53.83 OTHER FATIGUE 04/01/2017 SANAM FRANK DO Ot R94.5 ABNORMAL RESULTS OF LIVER FUNCTION STUDI 04/01/2017 SANAM FRANK DO Ot Z82.49 FAMILY HX OF ISCHEM HEART DIS AND OTH DI 04/01/2017 SANAM FRANK DO Ot Z87.19 PERSONAL HISTORY OF OTHER DISEASES OF TH 04/01/2017 SANAM FRANK DO Ot Z87.448 PERSONAL HISTORY OF OTHER DISEASES OF UR 04/01/2017 SANAM FRANK DO Ot Z90.49 ACQUIRED ABSENCE OF OTHER SPECIFIED PART 04/01/2017 TRISHA FRANK DOA K Ot Z90.710 ACQUIRED ABSENCE OF BOTH CERVIX AND UTER 04/04/2017 SANAM FRANK DO Ot F17.210 NICOTINE DEPENDENCE, CIGARETTES, UNCOMPL 04/04/2017 TRISHA FRANK DOA K Ot F32.9 MAJOR DEPRESSIVE DISORDER, SINGLE EPISOD 04/04/2017 MONIKA RAMOS, SANAM K Ot F41.9 ANXIETY DISORDER, UNSPECIFIED 04/04/2017 SANAM FRANK DO Ot G43.909 MIGRAINE, UNSP, NOT INTRACTABLE, WITHOUT 04/04/2017 MONIKA , SANAM K Ot G89.29 OTHER CHRONIC PAIN 04/04/2017 MONIKA RAMOS SANAM K Ot K21.9 GASTRO-ESOPHAGEAL REFLUX DISEASE WITHOUT 04/04/2017 MONIKA SANAM K Ot M79.7 FIBROMYALGIA 04/04/2017 MONIKA RAMOS SANAM K Ot N39.0 URINARY TRACT INFECTION, SITE NOT SPECIF 04/04/2017 MONIKA RAMOS SANAM K Ot R52 PAIN, UNSPECIFIED 04/04/2017 MONIKA RAMOS SANAM K Ot R53.83 OTHER FATIGUE 04/04/2017 MONIKA RAMOS SANAM K Ot R94.5 ABNORMAL RESULTS OF LIVER FUNCTION STUDI 04/04/2017 MONIKA RAMOS SANAM Anthony Ot Z82.49 FAMILY HX OF ISCHEM HEART DIS AND OTH DI 04/04/2017 MONIKA RAMOS SANAM K Ot Z87.19 PERSONAL HISTORY OF OTHER DISEASES OF TH 04/04/2017 MONIKA RAMOS SANAM Anthony Ot Z87.448 PERSONAL HISTORY OF OTHER DISEASES OF UR 04/04/2017 MONIKA RAMOS SANAM K Ot Z90.49 ACQUIRED ABSENCE OF OTHER SPECIFIED PART 04/04/2017 MONIKA RAMOS SANAM K Ot Z90.710 ACQUIRED ABSENCE OF BOTH CERVIX AND UTER 04/04/2017 INGRID LEE MD Ot R10.11 RIGHT UPPER QUADRANT PAIN 04/04/2017 INGRID LEE MD Ot Z90.49 ACQUIRED ABSENCE OF OTHER SPECIFIED PART 04/07/2017 MONIKA RAMOS SANAM K Ot F17.210 NICOTINE DEPENDENCE, CIGARETTES, UNCOMPL 04/07/2017 MONIKA RAMOS SANAM K Ot F32.9 MAJOR DEPRESSIVE DISORDER, SINGLE EPISOD 04/07/2017 MONIKA RAMOS SANAM K Ot F41.9 ANXIETY DISORDER, UNSPECIFIED 04/07/2017 SANAM FRANK DO Ot G43.909 MIGRAINE, UNSP, NOT INTRACTABLE, WITHOUT 04/07/2017 SANAM FRANK DO Ot G89.29 OTHER CHRONIC PAIN 04/07/2017 SANAM FRANK DO Ot K21.9 GASTRO-ESOPHAGEAL REFLUX DISEASE WITHOUT 04/07/2017 SANAM FRANK DO Ot M79.7 FIBROMYALGIA 04/07/2017 SANAM FRANK DO Ot N39.0 URINARY TRACT INFECTION, SITE NOT SPECIF 04/07/2017 SANAM FRANK DO Ot R52 PAIN, UNSPECIFIED 04/07/2017 SANAM FRANK DO Ot R53.83 OTHER FATIGUE 04/07/2017 SANAM FRANK DO Ot R94.5 ABNORMAL RESULTS OF LIVER FUNCTION STUDI 04/07/2017 SANAM FRANK DO Ot Z82.49 FAMILY HX OF ISCHEM HEART DIS AND OTH DI 04/07/2017 SANAM FRANK DO Ot Z87.19 PERSONAL HISTORY OF OTHER DISEASES OF TH 04/07/2017 SANAM FRANK DO Ot Z87.448 PERSONAL HISTORY OF OTHER DISEASES OF UR 04/07/2017 SANAM FRANK DO Ot Z90.49 ACQUIRED ABSENCE OF OTHER SPECIFIED PART 04/07/2017 SANAM FRANK DO Ot Z90.710 ACQUIRED ABSENCE OF BOTH CERVIX AND UTER 04/17/2017 MARITZA LANCE, PAULINA Lock Ot 305.1 TOBACCO USE DISORDER 04/17/2017 MARITZA LANCE, PAULINA Lock Ot 440.20 ATHEROSCLEROSIS [place] ARTERIES EXTREMIT 04/17/2017 MARITZA LANCE, PAULINA Lock Ot 729.5 PAIN IN LIMB 04/17/2017 DANDRE LANCE, ANN Akins Ot 788.30 UNSPECIFIED URINARY INCONTINENCE 04/17/2017 DHIRAJ LANCE FACC, ALI FACP CCDS Ot 305.1 TOBACCO USE DISORDER 04/17/2017 DHIRAJ LANCE FACC, ELEUTERIO FACP CCDS Ot 729.1 MYALGIA AND MYOSITIS NOS 04/17/2017 DHIRAJ LANCE FACC, ALI FACP CCDS Ot 729.81 SWELLING OF LIMB 04/17/2017 DHIRAJ LANCE FACC, ELEUTERIO FACP CCDS Ot 780.79 OTH MALAISE FATIGUE 04/17/2017 DHIRAJ LANCE FACC, ALI FACP CCDS Ot 786.09 RESPIRATORY ABNORM NEC 04/17/2017 DHIRAJ LANCE FAC, ALI FACP CCDS Ot 786.59 CHEST PAIN NEC 04/17/2017 MOMO GILBERT [employer] TEMP Ot M62.82 RHABDOMYOLYSIS 04/17/2017 INGRID LEE MD Ot R10.11 RIGHT UPPER QUADRANT PAIN 04/17/2017 INGRID LEE MD Ot Z90.49 ACQUIRED ABSENCE OF OTHER SPECIFIED PART 04/17/2017 NANCY FLYNN MD Ot M54.9 DORSALGIA, UNSPECIFIED 04/27/2017 NANCY FLYNN MD Ot F17.210 NICOTINE DEPENDENCE, CIGARETTES, UNCOMPL 04/27/2017 NANCY FLYNN MD Ot F32.9 MAJOR DEPRESSIVE DISORDER, SINGLE EPISOD 04/27/2017 NANCY FLYNN MD Ot F41.9 ANXIETY DISORDER, UNSPECIFIED 04/27/2017 NANCY FLYNN MD Ot G43.909 MIGRAINE, UNSP, NOT INTRACTABLE, WITHOUT 04/27/2017 NANCY FLYNN MD Ot J40 BRONCHITIS, NOT SPECIFIED ACUTE OR CH 04/27/2017 NANCY FLYNN MD Ot K21.9 GASTRO-ESOPHAGEAL REFLUX DISEASE WITHOUT 04/27/2017 NANCY FLYNN MD Ot R07.89 OTHER CHEST PAIN 04/27/2017 NANCY FLYNN MD Ot Z82.49 FAMILY HX OF ISCHEM HEART DIS AND OTH DI 04/27/2017 NANCY FLYNN MD Ot Z87.19 PERSONAL HISTORY OF OTHER DISEASES OF TH 04/27/2017 NANCY FLYNN MD Ot Z87.448 PERSONAL HISTORY OF OTHER DISEASES OF UR 04/27/2017 NANCY FLYNN MD Ot Z90.710 ACQUIRED ABSENCE OF BOTH CERVIX AND UTER 05/05/2017 ANN AMOS MD Ot 788.30 UNSPECIFIED URINARY INCONTINENCE 05/05/2017 DHIRAJ LANCE FAC, ALI FACP CCDS Ot 305.1 TOBACCO USE DISORDER 05/05/2017 DHIRAJ WADDELL, ALI FACP CCDS Ot 729.1 MYALGIA AND MYOSITIS NOS 05/05/2017 DHIRAJ LANCE FACC, ALI FACP CCDS Ot 729.81 SWELLING OF LIMB 05/05/2017 DHIRAJ WADDELL, ALI FACP CCDS Ot 780.79 OTH MALAISE FATIGUE 05/05/2017 DHIRAJ LANCE FACC, ALI FACP CCDS Ot 786.09 RESPIRATORY ABNORM NEC 05/05/2017 DHIRAJ LANCE FAC, ALI FACP CCDS Ot 786.59 CHEST PAIN NEC 05/05/2017 MOMO GILBERT [employer] TEMP Ot M62.82 RHABDOMYOLYSIS 05/05/2017 INGRID LEE MD Ot R10.11 RIGHT UPPER QUADRANT PAIN 05/05/2017 INGRID LEE MD Ot Z90.49 ACQUIRED ABSENCE OF OTHER SPECIFIED PART 05/12/2017 GUIDO MENDEZ [employer] Ot R94.6 ABNORMAL RESULTS OF THYROID FUNCTION SXITO 05/23/2017 ALLYSON QUIROZ MD Ot M25.552 PAIN IN LEFT HIP 05/23/2017 ALLYSON QUIROZ MD Ot M25.561 PAIN IN RIGHT KNEE 05/27/2017 GUIDO MENDEZ [employer] Ot R94.6 ABNORMAL RESULTS OF THYROID FUNCTION SIXTO 06/06/2017 GUIDO MENDEZ [employer] Ot R94.6 ABNORMAL RESULTS OF THYROID FUNCTION SIXTO 06/12/2017 ALLYSON QUIROZ MD Ot M25.552 PAIN IN LEFT HIP 06/12/2017 ALLYSON QUIROZ MD Ot M25.561 PAIN IN RIGHT KNEE 06/23/2017 ALLYSON QUIROZ MD Ot M25.552 PAIN IN LEFT HIP 06/23/2017 ALLYSON QUIROZ MD Ot M25.561 PAIN IN RIGHT KNEE 07/06/2017 TIFFANY SAUCEDO MD Ot F32.9 MAJOR DEPRESSIVE DISORDER, SINGLE EPISOD 07/06/2017 TIFFANY SAUCEDO MD Ot F41.9 ANXIETY DISORDER, UNSPECIFIED 07/06/2017 TIFFANY SAUCEDO MD Ot G43.909 MIGRAINE, UNSP, NOT INTRACTABLE, WITHOUT 07/06/2017 TIFFANY SAUCEDO MD Ot K21.9 GASTRO-ESOPHAGEAL REFLUX DISEASE WITHOUT 07/06/2017 TIFFANY SAUCEDO MD Ot M54.5 LOW BACK PAIN 07/06/2017 TIFFANY SAUCEDO MD Ot N39.0 URINARY TRACT INFECTION, SITE NOT SPECIF 07/06/2017 TIFFANY SAUCEDO MD Ot Z82.49 FAMILY HX OF ISCHEM HEART DIS AND OTH DI 07/06/2017 TIFFANY SAUCEDO MD Ot Z87.42 PERSONAL HISTORY OF OTH DISEASES OF THE 07/06/2017 TIFFANY SAUCEDO MD Ot Z90.49 ACQUIRED ABSENCE OF OTHER SPECIFIED PART 07/06/2017 TIFFANY SAUCEDO MD Ot Z90.710 ACQUIRED ABSENCE OF BOTH CERVIX AND UTER 09/19/2017 GUIDO MENDEZ [employer]INCIPAL Ot M54.5 LOW BACK PAIN 10/14/2017 GUIDO MENDEZ [employer] PRINCIPAL Ot M54.5 LOW BACK PAIN 10/17/2017 GUIDO MENDEZ [employer] PRINCIPAL Ot M54.5 LOW BACK PAIN 03/31/2018 JANEEN ERNANDEZ [employer] PRINCIPAL Ot G47.33 OBSTRUCTIVE SLEEP APNEA (ADULT) (PEDIATR 04/07/2018 DANDRE LANCE, ANN Akins Ot 788.30 UNSPECIFIED URINARY INCONTINENCE 04/07/2018 DHIRAJ LANCE FACC, ALI FACP CCDS Ot 305.1 TOBACCO USE DISORDER 04/07/2018 DHIRAJ LANCE FACC, ALI FACP CCDS Ot 729.1 MYALGIA AND MYOSITIS NOS 04/07/2018 DHIRAJ LANCE FACC, ALI FACP CCDS Ot 729.81 SWELLING OF LIMB 04/07/2018 DHIRAJ LANCE FACC, ALI FACP CCDS Ot 780.79 OTH MALAISE FATIGUE 04/07/2018 DHIRAJ LANCE FACC, ALI FACP CCDS Ot 786.09 RESPIRATORY ABNORM NEC 04/07/2018 DHIRAJ LANCE FACC, ALI FACP CCDS Ot 786.59 CHEST PAIN NEC 04/07/2018 MOMO GILBERT HUMAN RESOURCES TEMP Ot M62.82 RHABDOMYOLYSIS 04/07/2018 JESUS LANCE, INGRID Melendez Ot R10.11 RIGHT UPPER QUADRANT PAIN 04/07/2018 JESUS LANCE, INGRID Melendez Ot Z90.49 ACQUIRED ABSENCE OF OTHER SPECIFIED PART 04/07/2018 GUIDO MENDEZ [employer] PRINCIPAL Ot R94.6 ABNORMAL RESULTS OF THYROID FUNCTION SIXTO 04/07/2018 RICHIE LANCE, ALLYSON Shoemaker Ot M25.552 PAIN IN LEFT HIP 04/07/2018 ALLYSON QUIROZ MD Ot M25.561 PAIN IN RIGHT KNEE 04/07/2018 GUIDO MENDEZ [employer] PRINCIPAL Ot M54.5 LOW BACK PAIN 04/07/2018 JANEEN ERNANDEZ [employer] PRINCIPAL Ot G47.33 OBSTRUCTIVE SLEEP APNEA (ADULT) (PEDIATR 04/08/2018 JANEEN ERNANDEZ [employer] PRINCIPAL Ot G47.33 OBSTRUCTIVE SLEEP APNEA (ADULT) (PEDIATR 04/08/2018 JANEEN ERNANDEZ APRN Ot G47.33 OBSTRUCTIVE SLEEP APNEA (ADULT) (PEDIATR 04/08/2018 MARITZA LANCE, PAULINA Lock Ot 305.1 TOBACCO USE DISORDER 04/08/2018 MARITZA LANCE, PAULINA Lock Ot 440.20 ATHEROSCLEROSIS [place] ARTERIES EXTREMIT 04/08/2018 MARITZA LANCE, PAULINA Lock Ot 729.5 PAIN IN LIMB 04/08/2018 DANDRE LANCE, ANN Akins Ot 788.30 UNSPECIFIED URINARY INCONTINENCE 04/08/2018 DHIRAJ LANCE FACC, ALI FACP CCDS Ot 305.1 TOBACCO USE DISORDER 04/08/2018 DHIRAJ LANCE FACC, ALI FACP CCDS Ot 729.1 MYALGIA AND MYOSITIS NOS 04/08/2018 DHIRAJ LANCE FACC, ALI FACP CCDS Ot 729.81 SWELLING OF LIMB 04/08/2018 DHIRAJ LANCE FACC, ALI FACP CCDS Ot 780.79 OTH MALAISE FATIGUE 04/08/2018 DHIRAJ LANCE FACC, ALI FACP CCDS Ot 786.09 RESPIRATORY ABNORM NEC 04/08/2018 DHIRAJ LANCE FACC, ALI FACP CCDS Ot 786.59 CHEST PAIN NEC 04/08/2018 MOMO GILBERT HUMAN RESOURCES TEMP Ot M62.82 RHABDOMYOLYSIS 04/08/2018 JESUS LANCE, INGRID Melendez Ot R10.11 RIGHT UPPER QUADRANT PAIN 04/08/2018 JESUS LANCE, INGRID Melendez Ot Z90.49 ACQUIRED ABSENCE OF OTHER SPECIFIED PART 04/08/2018 GUIDO MENDEZ [employer] PRINCIPAL Ot R94.6 ABNORMAL RESULTS OF THYROID FUNCTION SIXTO 04/08/2018 RICHIE LANCE, ALLYSON Shoemaker Ot M25.552 PAIN IN LEFT HIP 04/08/2018 ALLYSON QUIROZ MD Ot M25.561 PAIN IN RIGHT KNEE 04/08/2018 GUIDO MENDEZ [employer] PRINCIPAL Ot M54.5 LOW BACK PAIN 04/08/2018 JANEEN ERNANDEZ APRN Ot G47.33 OBSTRUCTIVE SLEEP APNEA (ADULT) (PEDIATR 04/08/2018 JANEEN ERNANDEZ [employer] PRINCIPAL Ot G47.33 OBSTRUCTIVE SLEEP APNEA (ADULT) (PEDIATR 04/08/2018 MARITZA LANCE, PAULINA Lock Ot 305.1 TOBACCO USE DISORDER 04/08/2018 MARITZA LANCE, PAULINA Lock Ot 440.20 ATHEROSCLEROSIS [place] ARTERIES EXTREMIT 04/08/2018 PAULINA SALAS MD Ot 729.5 PAIN IN LIMB 04/08/2018 DANDRE LANCE, ANN Akins Ot 788.30 UNSPECIFIED URINARY INCONTINENCE 04/08/2018 DHIRAJ LANCE [facility], ALI FACP CCDS Ot 305.1 TOBACCO USE DISORDER 04/08/2018 DHIRAJ LANCE FAC, ALI FACP CCDS Ot 729.1 MYALGIA AND MYOSITIS NOS 04/08/2018 DHIRAJ LANCE FAC, ALI FACP CCDS Ot 729.81 SWELLING OF LIMB 04/08/2018 DHIRAJ WADDELL, ALI FACP CCDS Ot 780.79 OTH MALAISE FATIGUE 04/08/2018 DHIRAJ WADDELL, ALI FACP CCDS Ot 786.09 RESPIRATORY ABNORM NEC 04/08/2018 DHIRAJ LANCE FACC, ALI FACP CCDS Ot 786.59 CHEST PAIN NEC 04/08/2018 MOMO GILBERT [employer] TEMP Ot M62.82 RHABDOMYOLYSIS 04/08/2018 JESUS LANCE, INGRID Melendez Ot R10.11 RIGHT UPPER QUADRANT PAIN 04/08/2018 JESUS LANCE, INGRID C Ot Z90.49 ACQUIRED ABSENCE OF OTHER SPECIFIED PART 04/08/2018 GUIDO MENDEZ [employer] Ot R94.6 ABNORMAL RESULTS OF THYROID FUNCTION SIXTO 04/08/2018 ALLYSON QUIROZ MD Ot M25.552 PAIN IN LEFT HIP 04/08/2018 ALLYSON QUIROZ MD Ot M25.561 PAIN IN RIGHT KNEE 04/08/2018 GUIDO MENDEZ [employer] Ot M54.5 LOW BACK PAIN 04/08/2018 JANEEN ERNANDEZ [employer] Ot G47.33 OBSTRUCTIVE SLEEP APNEA (ADULT) (PEDIATR Procedures There is no data. Results Test Result Range Complete blood count (CBC) with automated white blood cell (WBC) differential - 11/28/16 20:15 Blood leukocytes automated count (number/volume) 9.2 10*3/uL 4.3-11.0 Blood erythrocytes automated count (number/volume) 4.73 10*6/uL 4.35-5.85 Venous blood hemoglobin measurement (mass/volume) 13.0 [...] Automated blood platelet mean volume measurement 9.9 [foz_us] 7.4-10.4 Automated blood neutrophils/100 leukocytes 58 % [...] Serum or plasma sodium measurement (moles/volume) 141 mmol/L 135-145 Serum or plasma potassium measurement (moles/volume) 3.4 mmol/L 3.6-5.0 Serum or plasma chloride measurement (moles/volume) 106 mmol/L 98-107 Carbon dioxide 26 mmol/L 21-32 Serum or plasma anion gap determination (moles/volume) 9 mmol/L 5-14 Serum or plasma urea nitrogen measurement (mass/volume) 15 mg/dL 7-18 Serum or plasma creatinine measurement (mass/volume) 0.88 mg/dL 0.60-1.30 Serum or plasma urea nitrogen/creatinine mass [...] or plasma troponin i.cardiac measurement (mass/volume) < ng/ mL <0.30 Myoglobin, serum - 11/28/16 20:15 Myoglobin, serum 59.8 ng/mL 10.0-92.0 Complete blood count (CBC) with automated white blood cell (WBC) differential - 12/02/16 14:45 Blood leukocytes automated count (number/volume) 8.0 10*3/uL 4.3-11.0 Blood erythrocytes automated count (number/volume) 5.17 10*6/uL 4.35-5.85 Venous blood hemoglobin measurement (mass/volume) 14.0 [...] Automated blood platelet mean volume measurement 9.9 [foz_us] 7.4-10.4 Automated blood neutrophils/100 leukocytes 60 % [...] Serum or plasma sodium measurement (moles/volume) 142 mmol/L 135-145 Serum or plasma potassium measurement (moles/volume) 3.6 mmol/L 3.6-5.0 Serum or plasma chloride measurement (moles/volume) 105 mmol/L 98-107 Carbon dioxide 26 mmol/L 21-32 Serum or plasma anion gap determination (moles/volume) 11 mmol/L 5-14 Serum or plasma urea nitrogen measurement (mass/volume) 13 mg/dL 7-18 Serum or plasma creatinine measurement (mass/volume) 0.94 mg/dL 0.60-1.30 Serum or plasma urea nitrogen/creatinine mass ratio 14 NRG Serum or plasma creatinine measurement with calculation of estimated glomerular filtration rate > NRG Serum or plasma glucose measurement (mass/volume) 88 mg/dL 70-105 Serum or plasma calcium measurement (mass/volume) 10.0 mg/dL 8.5-10.1 Serum or plasma total bilirubin [...] creatine kinase measurement (enzymatic activity/volume) 529 U/L 29168 Serum or plasma C reactive protein measurement (mass/volume) - 12/02/16 14:45 Serum or plasma C reactive protein measurement (mass/volume) 1.88 mg /dL 0.00-0.50 Comprehensive metabolic panel - 12/04/16 13:17 Serum or plasma sodium measurement (moles/volume) 139 mmol/L 135-145 Serum or plasma potassium measurement (moles/volume) 4.0 mmol/L 3.6-5.0 Serum or plasma chloride measurement (moles/volume) 106 mmol/L 98-107 Carbon dioxide 24 mmol/L 21-32 Serum or plasma anion gap determination (moles/volume) 9 mmol/L 5-14 Serum or plasma urea nitrogen measurement (mass/volume) 15 mg/dL 7-18 Serum or plasma creatinine measurement (mass/volume) 0.82 mg/dL 0.60-1.30 Serum or plasma urea nitrogen/creatinine mass [...] Urine pH measurement by test strip 6 5-9 Specific gravity of urine by test strip 1.015 1.016- 1.022 Urine protein assay by test strip, semi-quantitative [...] 08:31 Blood leukocytes automated count (number/volume) 7.7 10*3/uL 4.3-11.0 Blood erythrocytes automated count (number/volume) 4.90 10*6/uL 4.35-5.85 Venous blood hemoglobin measurement (mass/volume) 13.4 [...] Automated blood platelet mean volume measurement 9.7 [foz_us] 7.4-10.4 Automated blood neutrophils/100 leukocytes 64 % [...] Serum or plasma sodium measurement (moles/volume) 140 mmol/L 135-145 Serum or plasma potassium measurement (moles/volume) 3.9 mmol/L 3.6-5.0 Serum or plasma chloride measurement (moles/volume) 107 mmol/L 98-107 Carbon dioxide 24 mmol/L 21-32 Serum or plasma anion gap determination (moles/volume) 9 mmol/L 5-14 Serum or plasma urea nitrogen measurement (mass/volume) 16 mg/dL 7-18 Serum or plasma creatinine measurement (mass/volume) 0.88 mg/dL 0.60-1.30 Serum or plasma urea nitrogen/creatinine mass [...] plasma C reactive protein measurement (mass/volume) 2.16 mg /dL 0.00-0.50 Complete blood count (CBC) with automated white blood cell (WBC) differential - 12/19/16 12:00 Blood leukocytes automated count (number/volume) 9.4 10*3/uL 4.3-11.0 Blood erythrocytes automated count (number/volume) 5.04 10*6/uL 4.35-5.85 Venous blood hemoglobin measurement (mass/volume) 14.0 [...] Automated blood platelet mean volume measurement 9.8 [foz_us] 7.4-10.4 Automated blood neutrophils/100 leukocytes 65 % [...] Serum or plasma sodium measurement (moles/volume) 139 mmol/L 135-145 Serum or plasma potassium measurement (moles/volume) 3.6 mmol/L 3.6-5.0 Serum or plasma chloride measurement (moles/volume) 104 mmol/L 98-107 Carbon dioxide 27 mmol/L 21-32 Serum or plasma anion gap determination (moles/volume) 8 mmol/L 5-14 Serum or plasma urea nitrogen measurement (mass/volume) 17 mg/dL 7-18 Serum or plasma creatinine measurement (mass/volume) 0.88 mg/dL 0.60-1.30 Serum or plasma urea nitrogen/creatinine mass [...] Urine pH measurement by test strip 5 5-9 Specific gravity of urine by test strip 1.025 1.016- 1.022 Urine protein assay by test strip, semi-quantitative [...] culture - 12/19/16 12:55 Bacterial urine culture [id number] NRG COLONY COUNT >100,000/ML NRG FTX;REPORTABLE SENSITIVITY REPORTED AT 1002, 12-21-16 NRG URINE CULTURE RESULTS PLUS NRG Bacterial susceptibility panel - 12/19/16 12:55 Gentamicin susceptibility test by minimum inhibitory concentration < = NRG Trimethoprim/sulfamethoxazole susceptibility test by minimum inhibitoryconcentration <= NRG Ampicillin susceptibility test by minimum inhibitory concentration 4 NRG Tobramycin susceptibility test by minimum inhibitory concentration < = NRG Cefazolin susceptibility test by minimum inhibitory concentration < = NRG Ceftriaxone susceptibility test by minimum inhibitory concentration <= NRG Ampicillin/sulbactam susceptibility test by minimum inhibitory concentration <= NRG Piperacillin/tazobactam susceptibility test by minimum inhibitory concentration <= NRG Ciprofloxacin susceptibility test by minimum inhibitory concentration <= NRG Meropenem susceptibility test by minimum inhibitory concentration < = NRG Nitrofurantoin susceptibility test by minimum inhibitory concentration <= NRG Aztreonam susceptibility test by minimum inhibitory concentration < = NRG Extended spectrum beta lactamase (ESBL) producing bacteria susceptibility test by minimum inhibitory concentration - NRG Complete blood count (CBC) with automated white blood cell (WBC) differential - 02/07/17 07:45 Blood leukocytes automated count (number/volume) 7.2 10*3/uL 4.3-11.0 Blood erythrocytes automated count (number/volume) 5.29 10*6/uL 4.35-5.85 Venous blood hemoglobin measurement (mass/volume) 14.4 [...] Automated blood platelet mean volume measurement 9.5 [foz_us] 7.4-10.4 Automated blood neutrophils/100 leukocytes 57 % [...] Urine pH measurement by test strip 6 5-9 Specific gravity of urine by test strip 1.020 1.016- 1.022 Urine protein assay by test strip, semi-quantitative [...] Serum or plasma sodium measurement (moles/volume) 139 mmol/L 135-145 Serum or plasma potassium measurement (moles/volume) 3.7 mmol/L 3.6-5.0 Serum or plasma chloride measurement (moles/volume) 105 mmol/L 98-107 Carbon dioxide 25 mmol/L 21-32 Serum or plasma anion gap determination (moles/volume) 9 mmol/L 5-14 Serum or plasma urea nitrogen measurement (mass/volume) 14 mg/dL 7-18 Serum or plasma creatinine measurement (mass/volume) 0.85 mg/dL 0.60-1.30 Serum or plasma urea nitrogen/creatinine mass [...] plasma albumin measurement (mass/volume) 4.2 g/dL 3.2-4.5 Complete blood count (CBC) with automated white blood cell (WBC) differential - 02/12/17 14:55 Blood leukocytes automated count (number/volume) 8.1 10*3/uL 4.3-11.0 Blood erythrocytes automated count (number/volume) 5.01 10*6/uL 4.35-5.85 Venous blood hemoglobin measurement (mass/volume) 13.7 g/dL 11.5-16.0 Blood hematocrit (volume fraction) 40 % 35-52 Automated erythrocyte mean corpuscular volume 80 [foz_us] 80-99 Automated erythrocyte mean corpuscular hemoglobin (mass per erythrocyte) 27 pg 25-34 Automated erythrocyte mean corpuscular hemoglobin concentration measurement ( mass/volume) 34 g/dL 32-36 Automated erythrocyte distribution width ratio 15.1 % 10.0-14.5 Automated blood platelet count (count/volume) 346 10*3/uL 130-400 Automated blood platelet mean volume measurement 9.6 [foz_us] 7.4-10.4 Automated blood neutrophils/100 leukocytes 52 % 42-75 Automated blood lymphocytes/100 leukocytes 40 % 12-44 Blood monocytes/100 leukocytes 6 % 0-12 Automated blood eosinophils/100 leukocytes 1 % 0-10 Automated blood basophils/100 leukocytes 1 % 0-10 Blood neutrophils automated count (number/volume) 4.2 10*3 1.8-7.8 Blood lymphocytes automated count (number/volume) 3.3 10*3 1.0-4.0 Blood monocytes automated count (number/volume) 0.5 10*3 0.0-1.0 Automated eosinophil count 0.1 10*3/uL 0.0-0.3 Automated blood basophil count (count/volume) 0.1 10*3/uL 0.0-0.1 Comprehensive metabolic panel - 02/12/17 14:55 Serum or plasma sodium measurement (moles/volume) 142 mmol/L 135-145 Serum or plasma potassium measurement (moles/volume) 3.6 mmol/L 3.6-5.0 Serum or plasma chloride measurement (moles/volume) 106 mmol/L 98-107 Carbon dioxide 27 mmol/L 21-32 Serum or plasma anion gap determination (moles/volume) 9 mmol/L 5-14 Serum or plasma urea nitrogen measurement (mass/volume) 18 mg/dL 7-18 Serum or plasma creatinine measurement (mass/volume) 0.85 mg/dL 0.60-1.30 Serum or plasma urea nitrogen/creatinine mass ratio 21 NRG Serum or plasma creatinine measurement with calculation of estimated glomerular filtration rate > NRG Serum or plasma glucose measurement (mass/volume) 93 mg/dL 70-105 Serum or plasma calcium measurement (mass/volume) 9.4 mg/dL 8.5-10.1 Serum or plasma total bilirubin measurement (mass/volume) 0.3 mg/dL 0.1-1.0 Serum or plasma alkaline phosphatase measurement (enzymatic activity/volume) 160 U/L 40-136 Serum or plasma aspartate aminotransferase measurement (enzymatic activity/ volume) 24 U/L 5-34 Serum or plasma alanine aminotransferase measurement (enzymatic activity/volume ) 51 U/L 0-55 Serum or plasma protein measurement (mass/volume) 8.1 g/dL 6.4-8.2 Serum or plasma albumin measurement (mass/volume) 4.2 g/dL 3.2-4.5 Complete blood count (CBC) with automated white blood cell (WBC) differential - 02/18/17 15:37 Blood leukocytes automated count (number/volume) 8.4 10*3/uL 4.3-11.0 Blood erythrocytes automated count (number/volume) 4.74 10*6/uL 4.35-5.85 Venous blood hemoglobin measurement (mass/volume) 12.8 g/dL 11.5-16.0 Blood hematocrit (volume fraction) 38 % 35-52 Automated erythrocyte mean corpuscular volume 81 [foz_us] 80-99 Automated erythrocyte mean corpuscular hemoglobin (mass per erythrocyte) 27 pg 25-34 Automated erythrocyte mean corpuscular hemoglobin concentration measurement ( mass/volume) 34 g/dL 32-36 Automated erythrocyte distribution width ratio 15.4 % 10.0-14.5 Automated blood platelet count (count/volume) 324 10*3/uL 130-400 Automated blood platelet mean volume measurement 9.9 [foz_us] 7.4-10.4 Automated blood neutrophils/100 leukocytes 57 % 42-75 Automated blood lymphocytes/100 leukocytes 35 % 12-44 Blood monocytes/100 leukocytes 6 % 0-12 Automated blood eosinophils/100 leukocytes 1 % 0-10 Automated blood basophils/100 leukocytes 0 % 0-10 Blood neutrophils automated count (number/volume) 4.8 10*3 1.8-7.8 Blood lymphocytes automated count (number/volume) 2.9 10*3 1.0-4.0 Blood monocytes automated count (number/volume) 0.5 10*3 0.0-1.0 Automated eosinophil count 0.1 10*3/uL 0.0-0.3 Automated blood basophil count (count/volume) 0.0 10*3/uL 0.0-0.1 Complete urinalysis with reflex to culture - 02/18/17 16:55 Urine color determination YELLOW NRG Urine clarity determination CLEAR NRG Urine pH measurement by test strip 6 5-9 Specific gravity of urine by test strip 1.005 1.016- 1.022 Urine protein assay by test strip, semi-quantitative [...] culture NO NRG Comprehensive metabolic panel - 02/18/17 16:55 Serum or plasma sodium measurement (moles/volume) 142 mmol/L 135-145 Serum or plasma potassium measurement (moles/volume) 3.4 mmol/L 3.6-5.0 Serum or plasma chloride measurement (moles/volume) 112 mmol/L 98-107 Carbon dioxide 23 mmol/L 21-32 Serum or plasma anion gap determination (moles/volume) 7 mmol/L 5-14 Serum or plasma urea nitrogen measurement (mass/volume) 10 mg/dL 7-18 Serum or plasma creatinine measurement (mass/volume) 0.76 mg/dL 0.60-1.30 Serum or plasma urea nitrogen/creatinine mass ratio 13 NRG Serum or plasma creatinine measurement with calculation of estimated glomerular filtration rate > NRG Serum or plasma glucose measurement (mass/volume) 75 mg/dL 70-105 Serum or plasma calcium measurement (mass/volume) 8.2 mg/dL 8.5-10.1 Serum or plasma total bilirubin measurement (mass/volume) 0.2 mg/dL 0.1-1.0 Serum or plasma alkaline phosphatase measurement (enzymatic activity/volume) 125 U/L 40-136 Serum or plasma aspartate aminotransferase measurement (enzymatic activity/ volume) 18 U/L 5-34 Serum or plasma alanine aminotransferase measurement (enzymatic activity/volume ) 51 U/L 0-55 Serum or plasma protein measurement (mass/volume) 6.3 g/dL 6.4-8.2 Serum or plasma albumin measurement (mass/volume) 3.3 g/dL 3.2-4.5 Lipase - 02/18/17 16:55 Lipase 4 U/L 8-78 Complete blood count (CBC) with automated white blood cell (WBC) differential - 04/01/17 08:40 Blood leukocytes automated count (number/volume) 7.2 10*3/uL 4.3-11.0 Blood erythrocytes automated count (number/volume) 5.06 10*6/uL 4.35-5.85 Venous blood hemoglobin measurement (mass/volume) 13.6 g/dL 11.5-16.0 Blood hematocrit (volume fraction) 41 % 35-52 Automated erythrocyte mean corpuscular volume 81 [foz_us] 80-99 Automated erythrocyte mean corpuscular hemoglobin (mass per erythrocyte) 27 pg 25-34 Automated erythrocyte mean corpuscular hemoglobin concentration measurement ( mass/volume) 33 g/dL 32-36 Automated erythrocyte distribution width ratio 16.5 % 10.0-14.5 Automated blood platelet count (count/volume) 333 10*3/uL 130-400 Automated blood platelet mean volume measurement 9.2 [foz_us] 7.4-10.4 Automated blood neutrophils/100 leukocytes 62 % 42-75 Automated blood lymphocytes/100 leukocytes 30 % 12-44 Blood monocytes/100 leukocytes 6 % 0-12 Automated blood eosinophils/100 leukocytes 2 % 0-10 Automated blood basophils/100 leukocytes 0 % 0-10 Blood neutrophils automated count (number/volume) 4.5 10*3 1.8-7.8 Blood lymphocytes automated count (number/volume) 2.2 10*3 1.0-4.0 Blood monocytes automated count (number/volume) 0.4 10*3 0.0-1.0 Automated eosinophil count 0.1 10*3/uL 0.0-0.3 Automated blood basophil count (count/volume) 0.0 10*3/uL 0.0-0.1 Serum heterophile antibody titer - 04/01/17 08:40 Serum heterophile antibody titer NEGATIVE NEGATIVE Comprehensive metabolic panel - 04/01/17 08:40 Serum or plasma sodium measurement (moles/volume) 140 mmol/L 135-145 Serum or plasma potassium measurement (moles/volume) 3.9 mmol/L 3.6-5.0 Serum or plasma chloride measurement (moles/volume) 104 mmol/L 98-107 Carbon dioxide 26 mmol/L 21-32 Serum or plasma anion gap determination (moles/volume) 10 mmol/L 5-14 Serum or plasma urea nitrogen measurement (mass/volume) 14 mg/dL 7-18 Serum or plasma creatinine measurement (mass/volume) 0.82 mg/dL 0.60-1.30 Serum or plasma urea nitrogen/creatinine mass ratio 17 NRG Serum or plasma creatinine measurement with calculation of estimated glomerular filtration rate > NRG Serum or plasma glucose measurement (mass/volume) 87 mg/dL 70-105 Serum or plasma calcium measurement (mass/volume) 9.7 mg/dL 8.5-10.1 Serum or plasma total bilirubin measurement (mass/volume) 0.3 mg/dL 0.1-1.0 Serum or plasma alkaline phosphatase measurement (enzymatic activity/volume) 163 U/L 40-136 Serum or plasma aspartate aminotransferase measurement (enzymatic activity/ volume) 24 U/L 5-34 Serum or plasma alanine aminotransferase measurement (enzymatic activity/volume ) 59 U/L 0-55 Serum or plasma protein measurement (mass/volume) 7.8 g/dL 6.4-8.2 Serum or plasma albumin measurement (mass/volume) 4.1 g/dL 3.2-4.5 Magnesium - 04/01/17 08:40 Magnesium 2.2 mg/dL 1.8-2.4 Serum or plasma amylase measurement (enzymatic activity/volume) - 04/01/17 08: 40 Serum or plasma amylase measurement (enzymatic activity/volume) 68 U /L 25-125 Lipase - 04/01/17 08:40 Lipase < U/L 8-78 Serum or plasma thyrotropin measurement by detection limit <=0.05 miu/l (units/ volume) - 04/01/17 08:40 Serum or plasma thyrotropin measurement by detection limit <=0.05 miu/l (units/ volume) 1.02 u[iU]/mL 0.35-4.94 Serum or plasma ethanol measurement (mass/volume) - 04/01/17 08:40 Serum or plasma ethanol measurement (mass/volume) < mg/dL <10 Serum or plasma acetaminophen measurement (mass/volume) - 04/01/17 08:40 Serum or plasma acetaminophen measurement (mass/volume) < ug/mL 10-30 Acute hepatitis panel - 04/01/17 08:40 Confirmatory quantitative serum or plasma hepatitis B virus surface antigen measurement Non-Reactive Non-Reactive Hepatitis A virus IgM antibody assay Non-Reactive Non- Reactive Hepatitis B virus core IgM antibody assay Non-Reactive Non-Reactive Serum hepatitis C virus antibody detection Non-Reactive Non-Reactive Complete urinalysis with reflex to culture - 04/01/17 08:49 Urine color determination YELLOW NRG Urine clarity determination VERY CLOUDY NRG Urine pH measurement by test strip 5 5-9 Specific gravity of urine by test strip 1.015 1.016- 1.022 Urine protein assay by test strip, semi-quantitative 1+ NEGATIVE Urine glucose detection by automated test strip NEGATIVE NEGATIVE Erythrocytes detection in urine sediment by light microscopy 2+ NEGATIVE Urine ketones detection by automated test strip NEGATIVE NEGATIVE Urine nitrite detection by test strip POSITIVE NEGATIVE Urine total bilirubin detection by test strip NEGATIVE NEGATIVE Urine urobilinogen measurement by automated test strip (mass/volume) NORMAL NORMAL Urine leukocyte esterase detection by dipstick 3+ NEGATIVE Automated urine sediment erythrocyte count by microscopy (number/high power field) RARE NRG Automated urine sediment leukocyte count by microscopy (number/high power field ) > [HPF] NRG Bacteria detection in urine sediment by light microscopy MODERATE NRG Squamous epithelial cells detection in urine sediment by light microscopy 10-25 NRG Crystals detection in urine sediment by light microscopy NONE NRG Casts detection in urine sediment by light microscopy NONE NRG Mucus detection in urine sediment by light microscopy NEGATIVE NRG Complete urinalysis with reflex to culture YES NRG Urine drug screening test - 04/01/17 08:49 Urine phencyclidine detection by screening method NEGATIVE NEGATIVE Urine benzodiazepines detection by screening method NEGATIVE NEGATIVE Urine cocaine detection NEGATIVE NEGATIVE Urine amphetamines detection by screening method NEGATIVE NEGATIVE Urine methamphetamine detection by screening method NEGATIVE NEGATIVE Urine cannabinoids detection by screening method NEGATIVE NEGATIVE Urine opiates detection by screening method NEGATIVE NEGATIVE Urine barbiturates detection NEGATIVE NEGATIVE Screening urine tricyclic antidepressants detection POSITIVE NEGATIVE Urine methadone detection by screening method NEGATIVE NEGATIVE Urine oxycodone detection NEGATIVE NEGATIVE Urine propoxyphene detection NEGATIVE NEGATIVE Bacterial urine culture - 04/01/17 08:49 Bacterial urine culture [id number] NRG COLONY COUNT 10,000/ML - 100,000/ML NRG FTX;REPORTABLE SENSITIVITY REPORTED 04/03 09:30 NRG URINE CULTURE RESULTS PLUS NRG Bacterial susceptibility panel - 04/01/17 08:49 Gentamicin susceptibility test by minimum inhibitory concentration < = NRG Trimethoprim/sulfamethoxazole susceptibility test by minimum inhibitoryconcentration <= NRG Ampicillin susceptibility test by minimum inhibitory concentration 8 NRG Tobramycin susceptibility test by minimum inhibitory concentration < = NRG Cefazolin susceptibility test by minimum inhibitory concentration < = NRG Ceftriaxone susceptibility test by minimum inhibitory concentration <= NRG Ampicillin/sulbactam susceptibility test by minimum inhibitory concentration 4 NRG Piperacillin/tazobactam susceptibility test by minimum inhibitory concentration <= NRG Ciprofloxacin susceptibility test by minimum inhibitory concentration <= NRG Meropenem susceptibility test by minimum inhibitory concentration < = NRG Nitrofurantoin susceptibility test by minimum inhibitory concentration <= NRG Aztreonam susceptibility test by minimum inhibitory concentration < = NRG Extended spectrum beta lactamase (ESBL) producing bacteria susceptibility test by minimum inhibitory concentration - NRG Complete blood count (CBC) with automated white blood cell (WBC) differential - 04/27/17 22:15 Blood leukocytes automated count (number/volume) 14.6 10*3/uL 4.3-11.0 Blood erythrocytes automated count (number/volume) 4.87 10*6/uL 4.35-5.85 Venous blood hemoglobin measurement (mass/volume) 13.2 g/dL 11.5-16.0 Blood hematocrit (volume fraction) 40 % 35-52 Automated erythrocyte mean corpuscular volume 82 [foz_us] 80-99 Automated erythrocyte mean corpuscular hemoglobin (mass per erythrocyte) 27 pg 25-34 Automated erythrocyte mean corpuscular hemoglobin concentration measurement ( mass/volume) 33 g/dL 32-36 Automated erythrocyte distribution width ratio 17.0 % 10.0-14.5 Automated blood platelet count (count/volume) 322 10*3/uL 130-400 Automated blood platelet mean volume measurement 9.3 [foz_us] 7.4-10.4 Automated blood neutrophils/100 leukocytes 71 % 42-75 Automated blood lymphocytes/100 leukocytes 23 % 12-44 Blood monocytes/100 leukocytes 5 % 0-12 Automated blood eosinophils/100 leukocytes 1 % 0-10 Automated blood basophils/100 leukocytes 1 % 0-10 Blood neutrophils automated count (number/volume) 10.3 10*3 1.8-7.8 Blood lymphocytes automated count (number/volume) 3.3 10*3 1.0-4.0 Blood monocytes automated count (number/volume) 0.8 10*3 0.0-1.0 Automated eosinophil count 0.1 10*3/uL 0.0-0.3 Automated blood basophil count (count/volume) 0.1 10*3/uL 0.0-0.1 Blood manual differential performed detection - 04/27/17 22:15 Blood monocytes/100 leukocytes 5 % NRG Manual blood segmented neutrophils/100 leukocytes 76 % NRG Manual blood lymphocytes/100 leukocytes 17 % NRG Manual blood basophils/100 leukocytes 1 % NRG Blood anisocytosis detection by light microscopy SLIGHT NRG Blood dohle body detection by light microscopy SLIGHT NRG Fibrin D-dimer FEU measurement in platelet poor plasma (mass/volume) - 22:30 Fibrin D-dimer FEU measurement in platelet poor plasma (mass/volume) 0.30 ug/mL 0.00-0.49 Comprehensive metabolic panel - 04/27/17 22:30 Serum or plasma sodium measurement (moles/volume) 140 mmol/L 135-145 Serum or plasma potassium measurement (moles/volume) 3.7 mmol/L 3.6-5.0 Serum or plasma chloride measurement (moles/volume) 107 mmol/L 98-107 Carbon dioxide 25 mmol/L 21-32 Serum or plasma anion gap determination (moles/volume) 8 mmol/L 5-14 Serum or plasma urea nitrogen measurement (mass/volume) 15 mg/dL 7-18 Serum or plasma creatinine measurement (mass/volume) 0.78 mg/dL 0.60-1.30 Serum or plasma urea nitrogen/creatinine mass ratio 19 NRG Serum or plasma creatinine measurement with calculation of estimated glomerular filtration rate > NRG Serum or plasma glucose measurement (mass/volume) 97 mg/dL 70-105 Serum or plasma calcium measurement (mass/volume) 8.7 mg/dL 8.5-10.1 Serum or plasma total bilirubin measurement (mass/volume) 0.2 mg/dL 0.1-1.0 Serum or plasma alkaline phosphatase measurement (enzymatic activity/volume) 202 U/L 40-136 Serum or plasma aspartate aminotransferase measurement (enzymatic activity/ volume) 27 U/L 5-34 Serum or plasma alanine aminotransferase measurement (enzymatic activity/volume ) 56 U/L 0-55 Serum or plasma protein measurement (mass/volume) 6.6 g/dL 6.4-8.2 Serum or plasma albumin measurement (mass/volume) 3.4 g/dL 3.2-4.5 Magnesium - 04/27/17 22:30 Magnesium 2.2 mg/dL 1.8-2.4 Serum or plasma troponin i.cardiac measurement (mass/volume) - 04/27/17 22:30 Serum or plasma troponin i.cardiac measurement (mass/volume) < ng/ mL <0.30 Complete urinalysis with reflex to culture - 04/27/17 22:55 Urine color determination YELLOW NRG Urine clarity determination CLEAR NRG Urine pH measurement by test strip 6 5-9 Specific gravity of urine by test strip 1.015 1.016- 1.022 Urine protein assay by test strip, semi-quantitative [...] urine sediment by light microscopy NEGATIVE NRG Squamous epithelial cells detection in urine sediment by light microscopy 2-5 NRG Crystals detection in urine sediment by light microscopy NONE NRG Casts detection in urine sediment by light microscopy NONE NRG Mucus detection in urine sediment by light microscopy NEGATIVE NRG Complete urinalysis with reflex to culture NO NRG Urine drug screening test - 04/27/17 22:55 Urine phencyclidine detection by screening method NEGATIVE NEGATIVE Urine benzodiazepines detection by screening method POSITIVE NEGATIVE Urine cocaine detection NEGATIVE NEGATIVE Urine amphetamines detection by screening method NEGATIVE NEGATIVE Urine methamphetamine detection by screening method NEGATIVE NEGATIVE Urine cannabinoids detection by screening method NEGATIVE NEGATIVE Urine opiates detection by screening method NEGATIVE NEGATIVE Urine barbiturates detection NEGATIVE NEGATIVE Screening urine tricyclic antidepressants detection POSITIVE NEGATIVE Urine methadone detection by screening method NEGATIVE NEGATIVE Urine oxycodone detection NEGATIVE NEGATIVE Urine propoxyphene detection NEGATIVE NEGATIVE Complete urinalysis with reflex to culture - 07/06/17 08:20 Urine color determination YELLOW NRG Urine clarity determination SLIGHTLY CLOUDY NRG Urine pH measurement by test strip 6 5-9 Specific gravity of urine by test strip 1.020 1.016- 1.022 Urine protein assay by test strip, semi-quantitative 2+ NEGATIVE Urine glucose detection by automated test strip NEGATIVE NEGATIVE Erythrocytes detection in urine sediment by light microscopy NEGATIVE NEGATIVE Urine ketones detection by automated test strip NEGATIVE NEGATIVE Urine nitrite detection by test strip NEGATIVE NEGATIVE Urine total bilirubin detection by test strip NEGATIVE NEGATIVE Urine urobilinogen measurement by automated test strip (mass/volume) 1 mg/dL NORMAL Urine leukocyte esterase detection by dipstick 1+ NEGATIVE Automated urine sediment erythrocyte count by microscopy (number/high power field) NONE NRG Automated urine sediment leukocyte count by microscopy (number/high power field ) [HPF] NRG Bacteria detection in urine sediment by light microscopy FEW NRG Squamous epithelial cells detection in urine sediment by light microscopy 10-25 NRG Crystals detection in urine sediment by light microscopy PRESENT NRG Casts detection in urine sediment by light microscopy NONE NRG Mucus detection in urine sediment by light microscopy SMALL NRG Complete urinalysis with reflex to culture YES NRG Amorphous sediment detection in urine sediment by light microscopy MOD CHAD URATES NRG Bacterial urine culture - 07/06/17 08:20 URINE CULTURE RESULTS MORE THAN 3 ISOLATES NRG Complete blood count (CBC) with automated white blood cell (WBC) differential - 07/06/17 08:38 Blood leukocytes automated count (number/volume) 7.0 10*3/uL 4.3-11.0 Blood erythrocytes automated count (number/volume) 5.09 10*6/uL 4.35-5.85 Venous blood hemoglobin measurement (mass/volume) 14.1 g/dL 11.5-16.0 Blood hematocrit (volume fraction) 42 % 35-52 Automated erythrocyte mean corpuscular volume 82 [foz_us] 80-99 Automated erythrocyte mean corpuscular hemoglobin (mass per erythrocyte) 28 pg 25-34 Automated erythrocyte mean corpuscular hemoglobin concentration measurement ( mass/volume) 34 g/dL 32-36 Automated erythrocyte distribution width ratio 16.7 % 10.0-14.5 Automated blood platelet count (count/volume) 314 10*3/uL 130-400 Automated blood platelet mean volume measurement 9.5 [foz_us] 7.4-10.4 Automated blood neutrophils/100 leukocytes 57 % 42-75 Automated blood lymphocytes/100 leukocytes 34 % 12-44 Blood monocytes/100 leukocytes 7 % 0-12 Automated blood eosinophils/100 leukocytes 2 % 0-10 Automated blood basophils/100 leukocytes 1 % 0-10 Blood neutrophils automated count (number/volume) 3.9 10*3 1.8-7.8 Blood lymphocytes automated count (number/volume) 2.4 10*3 1.0-4.0 Blood monocytes automated count (number/volume) 0.5 10*3 0.0-1.0 Automated eosinophil count 0.1 10*3/uL 0.0-0.3 Automated blood basophil count (count/volume) 0.1 10*3/uL 0.0-0.1 Comprehensive metabolic panel - 07/06/17 08:38 Serum or plasma sodium measurement (moles/volume) 142 mmol/L 135-145 Serum or plasma potassium measurement (moles/volume) 4.1 mmol/L 3.6-5.0 Serum or plasma chloride measurement (moles/volume) 107 mmol/L 98-107 Carbon dioxide 27 mmol/L 21-32 Serum or plasma anion gap determination (moles/volume) 8 mmol/L 5-14 Serum or plasma urea nitrogen measurement (mass/volume) 11 mg/dL 7-18 Serum or plasma creatinine measurement (mass/volume) 0.75 mg/dL 0.60-1.30 Serum or plasma urea nitrogen/creatinine mass ratio 15 NRG Serum or plasma creatinine measurement with calculation of estimated glomerular filtration rate > NRG Serum or plasma glucose measurement (mass/volume) 94 mg/dL 70-105 Serum or plasma calcium measurement (mass/volume) 9.3 mg/dL 8.5-10.1 Serum or plasma total bilirubin measurement (mass/volume) 0.3 mg/dL 0.1-1.0 Serum or plasma alkaline phosphatase measurement (enzymatic activity/volume) 130 U/L 40-136 Serum or plasma aspartate aminotransferase measurement (enzymatic activity/ volume) 17 U/L 5-34 Serum or plasma alanine aminotransferase measurement (enzymatic activity/volume ) 27 U/L 0-55 Serum or plasma protein measurement (mass/volume) 7.7 g/dL 6.4-8.2 Serum or plasma albumin measurement (mass/volume) 3.9 g/dL 3.2-4.5 Encounters ACCT No. Visit Date/Time Discharge Status Pt. Type Provider Facility Loc./Unit Complaint [id number] 03/31/2018 16:33:00 03/31/2018 23:59:59 CLS Preadmit JANEEN ERNANDEZ APRN [facility] SLEEP G47.33 OBSTRUCTIVE SL APNEA [id number] 09/18/2017 08:49:00 09/18/2017 23:59:59 CLS Outpatient GUIDO MENDEZ APRN [facility] RAD M54.5 [id number] 07/06/2017 08:01:00 07/06/2017 10:00:00 DIS Emergency TIFFANY SAUCEDO MD [facility] ER WHEN BREATHING, BACK HURTS [id number] 05/22/2017 13:26:00 05/22/2017 23:59:59 CLS Outpatient ALLYSON QUIROZ MD [facility] RAD M17.11 M16.12 [id number] 05/06/2017 11:02:00 05/06/2017 23:59:59 CLS Outpatient SIMONE MENDEZSPRING Noel [employer] [facility] CARD R94.6 [id number] 04/27/2017 21:39:00 04/27/2017 23:51:00 DIS Emergency NANCY FLYNN MD [facility] ER CHEST PAIN [id number] 04/17/2017 11:52:00 04/17/2017 12:55:00 DIS Emergency NANCY FLYNN MD [facility] ER BACK PAIN [id number] 04/01/2017 08:08:00 04/01/2017 10:45:00 DIS Emergency SANAM FRANK DO [facility] ER DIZZINESS,FATIGUE [id number] 02/18/2017 14:37:00 02/18/2017 18:08:00 DIS Emergency BAR [employer] TEMP [facility] ER JAW SWOLLEN/STOMACH ACHE [id number] 02/12/2017 14:43:00 02/12/2017 23:59:59 CLS Outpatient INGRID LEE MD [facility] RAD R10.11 RUQ PAIN [id number] 02/12/2017 11:44:00 02/12/2017 13:43:00 DIS Emergency ONEIL BROOKS MD [facility] ER STOMACH ACHE [id number] 02/07/2017 07:20:00 02/07/2017 09:16:00 DIS Emergency TIFFANY SAUCEDO MD [facility] ER STOMACH ACHE/DIARRHEA/ HEADACHE [id number] 01/23/2017 10:10:00 01/23/2017 12:05:00 DIS Emergency RAFA ALVARENGA APRN [facility] ER SWOLLEN NECK/SORE THROAT [id number] 01/20/2017 14:36:00 01/20/2017 23:59:59 CLS Preadmit JESUS LANCE, INGRID Melendez [facility] RAD R22.1 SWELLING IN LT NECK [id number] 12/19/2016 11:37:00 12/19/2016 14:02:00 DIS Emergency RAFA ALVARENGA APRN [facility] ER ABDOMINAL PAIN [id number] 12/07/2016 08:05:00 12/07/2016 10:00:00 DIS Emergency JENNA RAGLAND MD [facility] ER BACK PAIN [id number] 12/04/2016 13:04:00 12/04/2016 23:59:59 CLS Outpatient MOMO GILBERT [facility] LAB M62.82 [id number] 12/02/2016 13:51:00 12/02/2016 19:12:00 DIS Emergency ELLYN LANCE, JENNA Perry [facility] ER BACK/NECK PAIN [id number] 11/28/2016 20:13:00 11/28/2016 21:20:00 DIS Emergency RAFA ALVARENGA [employer] [facility] ER CP [id number] 09/12/2016 10:23:00 09/12/2016 12:18:00 DIS Emergency RAFA ALVARENGA APRN [facility] ER NECK PAIN/SWELLING [id number] 01/04/2015 08:21:00 01/18/2015 11:58:00 DIS Outpatient MARITZA LANCE, PAULINA Lock [facility] REHAB B HIP,LEG AND FOOT PAIN ;MUSCLOSKELETAL PAIN;WALKER [id number] 12/29/2014 09:44:00 12/29/2014 23:59:59 CLS Outpatient DHIRAJ LANCE FACC, ELEUTERIO SOLANO CCDS [facility] CARD CP DYSPNEA [id number] 12/26/2014 11:56:00 12/26/2014 14:01:00 DIS Emergency SANAM FRANK DO [facility] ER RETAINING FLUID [id number] 09/08/2014 14:21:00 09/08/2014 16:55:00 DIS Emergency TIFFANY SAUCEDO MD [facility] ER DIZZINESS/CHEST PAIN [id number] 06/17/2014 10:36:00 06/17/2014 23:59:59 CLS Outpatient DANDRE LANCE, ANN Akins [facility] RAD INCONTINENCE [id number] 06/07/2014 14:01:00 06/07/2014 23:59:59 CLS Outpatient PAULINA SALAS MD [facility] RAD BILAT LEG PAIN, CRAMPING [id number] 06/06/2014 06:28:00 06/06/2014 08:20:00 DIS Emergency ELLYN LANCE, JENNA Perry [facility] ER LEG SPASMS [id number] 11/15/2013 13:01:00 11/17/2013 08:30:00 DIS Inpatient MARITZA LANCE, PAULINA Lock [facility] 4TH RT LEG AND CALF PAIN, INTRACTIBLE MIGRAIN [id number] 10/01/2013 15:36:00 10/01/2013 18:25:00 DIS Emergency [id number] 09/26/2013 12:25:00 09/26/2013 15:52:00 DIS Emergency [id number] 09/21/2013 10:31:00 09/21/2013 12:20:00 DIS Emergency [id number] 07/29/2013 11:41:00 07/29/2013 15:00:00 DIS Outpatient [id number] 07/17/2013 15:24:00 07/17/2013 18:06:00 DIS Emergency TIRSO MONDRAGON [facility] ER [id number] 06/29/2013 10:19:00 06/29/2013 23:59:59 CLS Outpatient [id number] 06/16/2013 17:10:00 06/16/2013 19:10:00 DIS Emergency [id number] 05/27/2013 11:46:00 05/27/2013 15:30:00 DIS Outpatient [id number] 03/17/2013 08:16:00 03/30/2013 11:13:00 DIS Outpatient [id number] 03/24/2013 09:43:00 03/24/2013 11:26:00 DIS Outpatient [id number] 12/25/2012 12:22:00 12/25/2012 23:59:59 CLS Outpatient [id number] 12/24/2012 14:54:00 12/24/2012 23:59:59 CLS Outpatient [id number] 12/07/2016 08:24:00 Document Registration [id number] 12/02/2014 08:26:00 Document Registration [id number] 12/02/2014 08:26:00 Document Registration [id number] 12/02/2014 08:26:00 Document Registration [id number] 12/02/2014 08:26:00 Document Registration [id number] 12/02/2014 08:26:00 Document Registration [id number] 12/02/2014 08:26:00 Document Registration [id number] 12/02/2014 08:26:00 Document Registration [id number] 10/24/2014 05:15:00 Document Registration [id number] 07/30/2012 00:00:00 Document Registration [id number] 05/18/2012 13:40:00 Document Registration [id number] 05/15/2012 11:30:00 Document Registration [id number] 04/01/2012 10:33:00 Document Registration [id number] 09/27/2011 14:15:00 Document Registration [id number] 09/27/2011 11:55:00 Document Registration [id number] 05/17/2010 05:55:00 Document Registration [id number] 05/04/2010 09:40:00 Document Registration [id number] 04/20/2010 11:00:00 Document Registration [id number] 04/18/2010 08:54:00 Document Registration [id number] 02/26/2010 09:22:00 Document Registration [id number] 12/17/2009 11:03:00 Document Registration [id number] 08/14/2009 00:00:00 Document Registration [id number] 06/15/2009 10:51:00 Document Registration
[2018-05-12] MEDS ORDERED: KETOROLAC 30 MG/ML VIAL IVP STA (20:25)
[2018-05-12] MEDS ORDERED: DEXAMETHASONE PF 10 MG/ML (DECADRON) VIAL IV STA (20:25)
[2018-05-12] MEDS ORDERED: PROMETHAZINE INJ 25 MG/ML (PHENERGAN) AMP IVP STA (20:25)
[2018-05-12] MEDS ORDERED: diphenhydrAMINE 50 MG/ML INJ (BENADRYL) IV STA (20:25)
[2018-05-12] MEDS ORDERED: NS IV 1000 ML 1,000 ML IV STA (20:25)
[2018-05-12 20:31] LABS: BASOPHILS # (AUTO) 0.1 10^3/uL (0.0-0.1); BASOPHILS % (AUTO) 1 % (0-10); EOSINOPHILS # (AUTO) 0.2 10^3/uL (0.0-0.3); EOSINOPHILS % (AUTO) 2 % (0-10); HEMATOCRIT 40 % (35-52); HEMOGLOBIN 14.1 G/DL (11.5-16.0); LYMPHOCYTES # (AUTO) 3.3 X 10^3 (1.0-4.0); LYMPHOCYTES % (AUTO) 33 % (12-44); MEAN CORPUSCULAR HEMOGLOBIN 29 PG (25-34); MEAN CORPUSCULAR HGB CONC 36 G/DL (32-36); MEAN CORPUSCULAR VOLUME 82 FL (80-99); MEAN PLATELET VOLUME 9.8 FL (7.4-10.4); MONOCYTES # (AUTO) 0.7 X 10^3 (0.0-1.0); MONOCYTES % (AUTO) 7 % (0-12); NEUTROPHILS # (AUTO) 5.7 X 10^3 (1.8-7.8); NEUTROPHILS % (AUTO) 58 % (42-75); PLATELET COUNT 277 10^3/uL (130-400); RED BLOOD COUNT 4.82 10^6/uL (4.35-5.85); RED CELL DISTRIBUTION WIDTH 15.6 % (10.0-14.5); WHITE BLOOD COUNT 9.9 10^3/uL (4.3-11.0)
--- NOTE | 2018-05-12 20:33 | ED Headache ---
General Stated Complaint: MIGRAINE Source: patient Exam Limitations: no limitations History of Present Illness Date Seen by Provider: May 12, 2018 Time Seen by Provider: 20:15 Initial Comments Here with report of migraine headache. States it's posterior. States these are typical she has not had one in a while. She used to get injections to her neck/had for her migraines and that helped but her pain management doctor is no longer around. She did try her Imitrex followed by ibuprofen earlier today and that did not break of the migraine. She states usually the Imitrex works. Denies nausea or vomiting. Seems to have been exacerbated after visiting her [place] and may have been exposed to increased allergens. Timing/Duration: increasing, other (12 hours) Severity/Quality: moderate, constant, pressure Location: occipital Prior Headaches/Recent Trauma: occasional headaches Modifying Factors: worse with exposure to light; improves with rest Associated Symptoms: No confusion, No fever/chills; nasal drainage, sinus infection; No stiff neck, No vision changes, No weakness Allergies and Home Medications Allergies Coded Allergies: pregabalin (Verified Adverse Reaction, Intermediate, 12/07/16) Rhabdomyolysis meperidine (Verified Adverse Reaction, Mild, NAUSEA, 12/07/16) morphine (Verified Adverse Reaction, Mild, NAUSEA, 09/13/07) Uncoded Allergies: STEROID PILLS (Allergy, Unknown, 11/15/13) Home Medications Cephalexin 500 Mg Capsule, 500 MG PO 3 TIMES A DAY Prescribed by: TIFFANY SAUCEDO on 07/06/17 0958 Dicyclomine HCl 20 Mg Tablet, 20 MG PO ACHS Prescribed by: RAFA ALVARENGA on 12/19/16 1251 Furosemide 20 Mg Tablet, 20 MG PO DAILY, (Reported) Methylprednisolone Acetate 80 Mg/Ml Vial, 160 MG IJ MONTHLY, (Reported) Metronidazole 500 Mg Tablet, 500 MG PO BID, (Reported) Nabumetone 750 Mg Tablet, 750 MG PO BID Prescribed by: BAR MINOR on 02/18/17 1753 Naproxen 500 Mg Tablet, 500 MG PO BID PRN for PAIN Prescribed by: RAFA ALVARENGA on 09/12/16 1058 Ondansetron 4 Mg Tab.rapdis, 4 MG SL Q4H PRN for NAUSEA/VOMITING-1ST LINE Prescribed by: JENNA MCDANIELS on 12/07/16 0930 [Flexeril] , 5 MG PO TID PRN for PAIN Prescribed by: RAFA ALVARENGA on 09/12/16 1055 Patient Home Medication List Home Medication List Reviewed: Yes Review of Systems Review of Systems Constitutional: see HPI; No chills, No fever Eyes: See HPI; Denies Decreased Acuity; Photophobia Ears, Nose, Mouth, Throat: see HPI, throat pain Respiratory: No cough, No short of breath Cardiovascular: no symptoms reported Gastrointestinal: no symptoms reported Genitourinary: no symptoms reported Musculoskeletal: no symptoms reported Past Etnulps-Skbgwh-Srxyop Hx Past Med/Social Hx: Reviewed Nursing Past Med/Soc Hx Patient Social History Alcohol Use: Denies Use Recreational Drug Use: No Smoking Status: Current Everyday Smoker Type Used: Cigars 2nd Hand Smoke Exposure: Yes Recent Foreign Travel: No Contact w/Someone Who Travel: No Recent Hopitalizations: Yes (MULTIPLE E.D. 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 Sexually Transmitted Disease: No Genitourinary: No Gastrointestinal: Yes (CHRONIC NAUSEA AND ABDOMINAL PAIN ) Gastroesophageal Reflux, Diverticulosis Musculoskeletal: Yes (CHRONIC FATIGUE SYNDROME, CHRONIC NECK PAIN AND GENERALIZED PAIN ) Fibromyalgia, Chronic Back Pain Endocrine: Yes (STATES "HYPOGLYCEMIA") HEENT: No Cancer: No Psychosocial: Yes Anxiety, Depression Integumentary: No Blood Disorders: No Family Medical History Reviewed Nursing Family Hx Cancer Cataract Family history: Allergy Family history: Arthritis Family history: Asthma Family history: Breast disease Family history: Diabetes mellitus Family history: Hypertension Family history: Osteoporosis Family history: Thyroid disorder Headache Heart disease Hypercholesterolemia Psychotic disorder Seizure disorder No Family History of: Abdominal aortic aneurysm Elgin's disease Alcoholism Aphasia Cancer of colon Chest pain Congenital heart disease Congestive heart failure Cystic fibrosis Dementia Dysphagia Family history: Alzheimer's disease Family history: Cardiovascular disease Family history: Coronary thrombosis Family history: Gastrointestinal disease Family history: Glaucoma Hearing loss Hereditary disease History of - anemia History of - disorder History of - respiratory disease History of drug abuse Human immunodeficiency virus (HIV) seropositivity Infertile Kidney disease Malignant neoplasm of lung Myocardial infarction Parkinson's disease Prostate cancer Stroke Tuberculosis Visual impairment Physical Exam Vital Signs Capillary Refill : Height, Weight, BMI Height: 5'10.00" Weight: 210lbs. 0oz. 95.122981uw; 28.73 BMI Method:Stated General Appearance: WD/WN, no apparent distress HEENT: PERRL/EOMI, pharynx normal Neck: full range of motion, supple Cardiovascular: regular rate, rhythm, no murmur Respiratory: lungs clear, normal breath sounds Gastrointestinal: non tender, soft Back: normal inspection, no CVA tenderness, no vertebral tenderness Extremities: normal range of motion, non-tender Psychiatric: alert, oriented x 3 Crainal Nerves: normal hearing, normal speech, PERRL Coordination/Gait: normal gait Motor/Sensory: no motor deficit, no sensory deficit Skin: normal color, warm/dry Progress/Results/Core Measures Results/Orders Lab Results Laboratory Tests Test 05/12/18 20:24 Range/Units White Blood Count 9.9 4.3-11.0 10^3/uL Red Blood Count 4.82 4.35-5.85 10^6/uL Hemoglobin 14.1 11.5-16.0 G/DL Hematocrit 40 35-52 % Mean Corpuscular Volume 82 80-99 FL Mean Corpuscular Hemoglobin 29 25-34 PG Mean Corpuscular Hemoglobin Concent 36 32-36 G/DL Red Cell Distribution Width 15.6 H 10.0-14.5 % Platelet Count 277 130-400 10^3/uL Mean Platelet Volume 9.8 7.4-10.4 FL Neutrophils (%) (Auto) 58 42-75 % Lymphocytes (%) (Auto) 33 12-44 % Monocytes (%) (Auto) 7 0-12 % Eosinophils (%) (Auto) 2 0-10 % Basophils (%) (Auto) 1 0-10 % Neutrophils # (Auto) 5.7 1.8-7.8 X 10^3 Lymphocytes # (Auto) 3.3 1.0-4.0 X 10^3 Monocytes # (Auto) 0.7 0.0-1.0 X 10^3 Eosinophils # (Auto) 0.2 0.0-0.3 10^3/uL Basophils # (Auto) 0.1 0.0-0.1 10^3/uL Sodium Level 143 135-145 MMOL/L Potassium Level 3.4 L 3.6-5.0 MMOL/L Chloride Level 107 98-107 MMOL/L Carbon Dioxide Level 25 21-32 MMOL/L Anion Gap 11 5-14 MMOL/L Blood Urea Nitrogen 12 7-18 MG/DL Creatinine 0.88 0.60-1.30 MG/DL Estimat Glomerular Filtration Rate > 60 BUN/Creatinine Ratio 14 Glucose Level 89 70-105 MG/DL Calcium Level 10.1 8.5-10.1 MG/DL Corrected Calcium 9.8 8.5-10.1 MG/DL Total Bilirubin 0.4 0.1-1.0 MG/DL Aspartate Amino Transf (AST/SGOT) 23 5-34 U/L Alanine Aminotransferase (ALT/SGPT) 34 0-55 U/L Alkaline Phosphatase 126 40-136 U/L C-Reactive Protein High Sensitivity 0.75 H 0.00-0.50 MG/DL Total Protein 8.1 6.4-8.2 GM/DL Albumin 4.4 3.2-4.5 GM/DL My Orders Orders - ONEIL BROOKS MD Cbc With Automated Diff (05/12/18 20:25) Comprehensive Metabolic Panel (05/12/18 20:25) Hs C Reactive Protein (05/12/18 20:25) Promethazine Injection (Phenergan Injec (05/12/18 20:25) Ns Iv 1000 Ml (Sodium Chloride 0.9%) (05/12/18 20:25) Saline Lock/Iv-Start (05/12/18 20:25) Diphenhydramine Injection (Benadryl Inje (05/12/18 20:25) Dexamethasone Pf Injection (Decadron Pf (05/12/18 20:25) Ketorolac Injection (Toradol Injection) (05/12/18 20:25) Progress Progress Note : Progress Note Seen and evaluated. IV, labs, Toradol 30 mg IV, Benadryl 25 mg IV, Phenergan 25 mg IV and Decadron 10 mg IV ordered. Normal saline 1 L bolus. Monitor patient. 2144: Overall improved. Patient feels okay to go home. Discharged home with return precautions. Patient verbalize understanding instructions and agreement with plan. Departure Impression Primary Impression: Migraine Qualified Codes: G43.909 - Migraine, unspecified, not intractable, without status migrainosus Disposition: 01 HOME, SELF-CARE Condition: Improved Departure-Patient Inst. Decision time for Depature: 21:49 Referrals: ALLYSON QUIROZ MD (PCP/Family) Primary Care Physician Patient Instructions: Migraine Headache (DC) Add. Discharge Instructions: Take medications as previously prescribed. Drink plenty of fluids. Follow-up with your Dr. in one to 2 days for recheck. Return for worse pain, fever, vomiting, weakness, breathing problems or other concerns as needed. ONEIL BROOKS MD May 12, 2018 20:33
[2018-05-12 20:55] LABS: ALANINE AMINOTRANSFERASE 34 U/L (0-55); ALBUMIN 4.4 GM/DL (3.2-4.5); ALKALINE PHOSPHATASE 126 U/L (40-136); BILIRUBIN,TOTAL 0.4 MG/DL (0.1-1.0); BUN/CREATININE RATIO 14; CALCIUM 10.1 MG/DL (8.5-10.1); CARBON DIOXIDE 25 MMOL/L (21-32); CHLORIDE 107 MMOL/L (98-107); CREATININE SERUM 0.88 MG/DL (0.60-1.30); GFR ESTIMATED > 60; GLUCOSE 89 MG/DL (70-105); POTASSIUM 3.4 MMOL/L (3.6-5.0); SODIUM 143 MMOL/L (135-145); TOTAL PROTEIN 8.1 GM/DL (6.4-8.2)
[2018-05-12 22:35] VITALS: BP 159/97
== END 2018-05-12 22:06 | disposition home or self-care (01) ==
LOC: EDUNIT# 19:29 → ER 19:31
DX: G43.909 Migraine, unspecified, not intractable, without status migrainosus (principal); K21.9 Gastro-esophageal reflux disease without esophagitis; F41.9 Anxiety disorder, unspecified; F32.9 Major depressive disorder, single episode, unspecified; F17.290 Nicotine dependence, other tobacco product, uncomplicated; Z98.890 Other specified postprocedural states; Z87.19 Personal history of other diseases of the digestive system; Z82.49 Family history of ischemic heart disease and other diseases of the circulatory system; Z87.448 Personal history of other diseases of urinary system; Z90.89 Acquired absence of other organs; Z90.710 Acquired absence of both cervix and uterus; Z88.8 Allergy status to other drugs, medicaments and biological substances; Z88.5 Allergy status to narcotic agent; Z79.52 Long term (current) use of systemic steroids
CPT/HCPCS: 36415; 80053; 85025; 86141

== ENCOUNTER → 2018-11-23 | Outpatient (CLI) | payer MEDICARE, MEDICAID ==
--- NOTE | 2018-11-23 09:05 | Diagnostic Imaging Report ---
PROCEDURE: MRI lumbar spine. TECHNIQUE: Multiplanar, multisequence MRI of the lumbar spine was performed without contrast. INDICATION: Neck pain. Bilateral leg numbness. COMPARISON: Lumbar spine radiographs 09/18/2017. FINDINGS: There are 5 lumbar type vertebral bodies. Normal alignment. Vertebral body heights are preserved. The intervertebral discs are well-preserved. Mild facet arthropathy at L4-L5 and L5-S1. No substantial spinal canal, lateral recess or neural foraminal narrowing throughout the lumbar spine. No abnormal signal in the conus which terminates at L1. Normal morphology of the cauda equina. The visualized abdominal and pelvic contents are unremarkable. IMPRESSION: Mild facet arthropathy at L4-S1. No other substantial spondylotic change. No neural impingement. No acute osseous findings. Dictated by: Dictated on workstation # [id number]
== END ==
LOC: RAD 07:30
PROVIDERS: ATTEND Nurse Practitioner Family
DX: M46.87 Other specified inflammatory spondylopathies, lumbosacral region (principal)
CPT/HCPCS: 72148

== ENCOUNTER 2018-12-28 06:21 | Emergency (ER) | payer MEDICARE, MEDICAID ==
[~2018-12-28] VITALS: Ht 180.3 cm; Wt 99.8 kg
[2018-12-28 06:29] VITALS: BP 15/69
--- NOTE | 2018-12-28 06:29 | NUR ---
PT REQUESTED TO NOT TALK ON PHONE DURING TRIAGE PROCESS.
--- OUTSIDE RECORDS SUMMARY | 2018-12-28 06:37 | XMS REPORT | Continuity of Care Document ---
Author Organization Unknown Address Unknown Allergies Active Description Code Type Severity Reaction Onset Reported/Identified Relationship to Patient Clinical Status Yes morphine [id number] Drug Allergy Mild NAUSEA 09/13/2007 Yes STEROID PILLS STEROID PILLS Unknown N/A 11/15/2013 Yes pregabalin [id number] Drug Allergy Moderate N/A 12/07/2016 Yes meperidine [id number] Drug Allergy Mild NAUSEA 12/07/2016 Medications There [...] Perry Ot 459.89 CIRCULATORY DISEASE NEC 06/06/2014 ELLYN LANCE, JENNA Perry Ot 599.0 URIN TRACT INFECTION NOS 06/06/2014 JENNA RAGLAND MD Ot 729.82 CRAMP IN LIMB 07/06/2014 MARITZA LANCE, PAULINA Lock Ot 305.1 07/06/2014 PAULINA SALAS MD Ot 440.20 07/06/2014 MARITZA LANCE, PAULINA Lock [...] Lock Ot 719.45 12/02/2014 MARITZA LANCE, PAULINA Lock Ot 729.1 12/02/2014 MARITZA LANCE, PAULINA Lock [...] Lock Ot 719.45 12/02/2014 MARITZA LANCE, PAULINA Ashvin Ot 729.1 12/02/2014 MARITZA LANCE, PAULINA Lock Ot 729.5 12/02/2014 MARITZA LANCE, PAULINA Ashvin Ot 782.3 12/02/2014 MARITZA LANCE, PAULINA Ashvin Ot 784.0 12/02/2014 MARITZA LANCE, PAULINA Lock Ot V57.1 12/02/2014 MARITZA LANCE, PAULINA Lock Ot 719.45 12/02/2014 MARITZA LANCE, PAULINA J Ot 729.1 12/02/2014 MARITZA LANCE, PAULINA Ashvin Ot 729.5 12/02/2014 MARITZA LANCE, PAULINA J Ot 782.3 12/02/2014 MARITZA LANCE, PAULINA J Ot 784.0 12/02/2014 MARITZA LANCE, PAULINA J Ot V57.1 12/02/2014 MARITZA LANCE, PAULINA J Ot 719.45 12/02/2014 MARITZA LANCE, PAULINA J Ot 729.1 12/02/2014 MARITZA LANCE, PAULINA Lock [...] PAULINA J Ot 782.3 12/09/2014 MARITZA LANCE, PAULIAN J Ot 784.0 12/09/2014 MARITZA LANCE, PAULINA J Ot V57.1 12/09/2014 MARITZA LANCE, PAULINA J Ot 719.45 12/09/2014 MARITZA LANCE, PAULINA J Ot 729.1 12/09/2014 MARITZA LANCE, PAULINA J Ot 729.5 12/09/2014 MARITZA LANCE, PAULINA J Ot 782.3 12/09/2014 MARITZA LANEC, PAULINA J Ot 784.0 12/09/2014 MARITZA LANCE, PAULINA J Ot V57.1 12/26/2014 SANAM FRAKN DO Ot 276.69 OTHER FLUID OVERLOAD 12/26/2014 SANAM FRANK DO Ot V58.69 OTH MED,LT,CURRENT USE 12/27/2014 MARITZA LANCE, PAULINA Lock Ot 719.45 12/27/2014 MARITZA LANCE, PAULINA Lock Ot 729.1 12/27/2014 MARITZA LANCE, PAULINA Lock Ot 729.5 12/27/2014 MARITZA LANCE, PAULINA Lock Ot 782.3 12/27/2014 MARITZA LANCE, PAULINA J Ot 784.0 12/27/2014 MARITZA LANCE, [facility] Ot V57.1 01/04/2015 DHIRAJ MD FACC, ALI [...] PAULINA J Ot 719.45 01/09/2015 MARITZA LANCE, [facility] Ot 729.1 01/09/2015 MARITZA LANCE, [facility] Ot 729.5 01/09/2015 MARITZA LANCE, PAULINA [...] PAULINA J Ot 719.45 01/09/2015 MARITZA LANCE, [facility] Ot 729.1 01/09/2015 MARITZA LANCE, [facility] Ot 729.5 01/09/2015 PAULINA SALAS MD Ot 782.3 01/09/2015 MARITZA LANCE, PAULINA Lock Ot 784.0 01/09/2015 PAULINA SALAS MD Ot V57.1 01/09/2015 PAULINA SALAS MD Ot 719.45 01/09/2015 PAULINA SLAAS MD Ot 729.1 01/09/2015 PAULNIA SALAS MD Ot 729.5 01/09/2015 PAULINA SALAS [...] FACC, ALI FACP CCDS Ot 786.59 01/18/2015 PAULINA SALAS MD Ot 719.45 JOINT PAIN-PELVIS 01/18/2015 PAULINA SALAS MD Ot 729.1 MYALGIA AND MYOSITIS NOS 01/18/2015 PAULINA SALAS MD Ot 729.5 PAIN IN LIMB 01/18/2015 PAULINA SALAS MD Ot 782.3 EDEMA 01/18/2015 PAULINA SALAS MD Ot 784.0 HEADACHE 01/18/2015 PAULINA SALAS MD Ot V57.1 PHYSICAL THERAPY NEC 02/01/2015 DHIRAJ MD FACC, ALI FACP CCDS Ot 305.1 02/01/2015 DHIRAJ WADDELLC, ALI FACP CCDS Ot 729.1 02/01/2015 DHIRAJ LANCE FACC, ALI FACP CCDS Ot 729.81 02/01/2015 DHIRAJ LANCE FACC, ALI FACP CCDS Ot 780.79 02/01/2015 DHIRAJ LANCE FACC, ALI FACP CCDS Ot 786.09 02/01/2015 DHIRAJ LANCE FACC, ALI FACP CCDS Ot 786.59 05/16/2015 DHIRAJ LANCE FACC, ALI FACP CCDS Ot 305.1 05/16/2015 DHIRAJ WADDELLC, ALI FACP CCDS Ot 729.1 05/16/2015 DHIRAJ [...] MARITZA LANCE, PAULINA Lock Ot 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 09/12/2016 MARITZA LANCE, PAULINA Lock [...] Ot 786.59 CHEST PAIN NEC 09/12/2016 RAFA ALAVRENGA DIRECTOR OF STRATEGIC INITIATIVES Ot G89.29 OTHER CHRONIC PAIN 09/12/2016 RAFA ALVARENGA DIRECTOR OF STRATEGIC INITIATIVES Ot M43.6 TORTICOLLIS 09/12/2016 RAFA ALVARENGA DIRECTOR OF STRATEGIC INITIATIVES Ot M54.2 CERVICALGIA 09/12/2016 RAFA ALVARENGA DIRECTOR OF STRATEGIC INITIATIVES Ot M79.7 FIBROMYALGIA 09/13/2016 RAFA ALVARENGA DIRECTOR OF STRATEGIC INITIATIVES Ot G89.29 OTHER CHRONIC PAIN 09/13/2016 RAFA ALVARENGA DIRECTOR OF STRATEGIC INITIATIVES Ot M43.6 TORTICOLLIS 09/13/2016 RAFA ALVARENGA DIRECTOR OF STRATEGIC INITIATIVES Ot M54.2 CERVICALGIA 09/13/2016 RAFA ALVARENGA DIRECTOR OF STRATEGIC INITIATIVES Ot M79.7 FIBROMYALGIA 09/19/2016 RAFA ALVARENGA DIRECTOR OF STRATEGIC INITIATIVES Ot G89.29 OTHER CHRONIC PAIN 09/19/2016 RAFA ALVARENGA DIRECTOR OF STRATEGIC INITIATIVES Ot M43.6 TORTICOLLIS 09/19/2016 RAFA ALVARENGA DIRECTOR OF STRATEGIC INITIATIVES Ot M54.2 CERVICALGIA 09/19/2016 RAFA ALVARENGA DIRECTOR OF STRATEGIC INITIATIVES Ot M79.7 FIBROMYALGIA 11/28/2016 DANDRE LANCE, ANN Akins Ot 788.30 UNSPECIFIED URINARY INCONTINENCE 11/28/2016 DHIRAJ LANCE FACC, ALI FACP CCDS Ot 305.1 TOBACCO USE DISORDER 11/28/2016 DHIRAJ LANCE FACC, ALI FACP CCDS Ot 729.1 MYALGIA AND MYOSITIS NOS 11/28/2016 DHIRAJ LANCE FACC, ALI FACP CCDS Ot 729.81 SWELLING OF LIMB 11/28/2016 DHIRAJ LANCE FACC, ALI FACP CCDS Ot 780.79 OTH MALAISE FATIGUE 11/28/2016 DHIRAJ LANCE FACC, ALI FACP CCDS Ot 786.09 RESPIRATORY ABNORM NEC 11/28/2016 DHIRAJ WADDELLC, ALI FACP CCDS Ot 786.59 CHEST PAIN NEC 11/28/2016 RAFA ALVARENGA DIRECTOR OF STRATEGIC INITIATIVES Ot F17.210 NICOTINE DEPENDENCE, CIGARETTES, UNCOMPL 11/28/2016 RAFA ALVARENGA DIRECTOR OF STRATEGIC INITIATIVES Ot R07.9 CHEST PAIN, UNSPECIFIED 11/28/2016 RAFA ALVARENGA DIRECTOR OF STRATEGIC INITIATIVES Ot Z79.899 OTHER ENGINEERING JOB TITLES (CURRENT) DRUG THERAPY 11/29/2016 RAFA ALVARENGA DIRECTOR OF STRATEGIC INITIATIVES Ot F17.210 NICOTINE DEPENDENCE, CIGARETTES, UNCOMPL 11/29/2016 RAFA ALVARNEGA DIRECTOR OF STRATEGIC INITIATIVES Ot R07.9 CHEST PAIN, UNSPECIFIED 11/29/2016 RAFA ALVARENGA DIRECTOR OF STRATEGIC INITIATIVES Ot Z79.899 OTHER ALF (CURRENT) DRUG THERAPY 11/30/2016 RAFA ALVARENGA DIRECTOR OF STRATEGIC INITIATIVES Ot F17.210 NICOTINE DEPENDENCE, CIGARETTES, UNCOMPL 11/30/2016 RAFA ALVARENGA DIRECTOR OF STRATEGIC INITIATIVES Ot R07.9 CHEST PAIN, UNSPECIFIED 11/30/2016 RAFA ALVARENGA DIRECTOR OF STRATEGIC INITIATIVES Ot Z79.899 OTHER ENGINEERING JOB TITLES (CURRENT) DRUG THERAPY 12/02/2016 DANDRE LANCE, ANN Akins Ot 788.30 UNSPECIFIED URINARY INCONTINENCE 12/02/2016 DHIARJ LANCE FACC, ALI FACP CCDS Ot 305.1 TOBACCO USE DISORDER 12/02/2016 DHIRAJ LANCE FACC, ALI FACP CCDS Ot 729.1 MYALGIA AND MYOSITIS NOS 12/02/2016 DHIRAJ LANCE FACC, ALI FACP CCDS Ot 729.81 SWELLING OF LIMB 12/02/2016 DHIRAJ LANCE FACC, ALI FACP CCDS Ot 780.79 OTH MALAISE FATIGUE 12/02/2016 DHIRAJ LANCE FACC, ALI FACP CCDS [...] 729.1 MYALGIA AND MYOSITIS NOS 12/04/2016 DHIRAJ WADDELLC, ALI FACP CCDS Ot 729.81 SWELLING OF LIMB 12/04/2016 DHIRAJ WADDELLC, ALI FACP CCDS Ot 780.79 OTH MALAISE FATIGUE 12/04/2016 DHIRAJ LANCE FACC, ALI FACP CCDS [...] 12/07/2016 JENNA RAGLAND MD Ot Z79.899 OTHER ALF (CURRENT) DRUG THERAPY 12/07/2016 Ot 276.51 DEHYDRATION [...] 12/09/2016 JENNA RAGLAND MD Ot Z79.899 OTHER ALF (CURRENT) DRUG THERAPY 12/11/2016 JENNA RAGLAND MD Ot F17.210 NICOTINE DEPENDENCE, CIGARETTES, UNCOMPL 12/11/2016 JENNA RAGLAND MD Ot M54.5 LOW BACK PAIN 12/11/2016 JENNA RAGLAND MD Ot M62.82 RHABDOMYOLYSIS 12/11/2016 JENNA RAGLAND MD T Ot M79.7 FIBROMYALGIA 12/11/2016 JENNA RAGLAND MD Ot R11.2 NAUSEA WITH VOMITING, UNSPECIFIED 12/11/2016 JENNA RAGLAND MD Ot Z79.899 OTHER ENGINEERING JOB TITLES (CURRENT) DRUG THERAPY 12/19/2016 RAFA ALVARENGA DIRECTOR OF STRATEGIC INITIATIVES Ot F17.210 NICOTINE DEPENDENCE, CIGARETTES, UNCOMPL 12/19/2016 RAFA ALVARENGA DIRECTOR OF STRATEGIC INITIATIVES Ot G89.29 OTHER CHRONIC PAIN 12/19/2016 RAFA ALVARENGA DIRECTOR OF STRATEGIC INITIATIVES Ot K58.0 IRRITABLE BOWEL SYNDROME WITH DIARRHEA 12/19/2016 RAFA ALVARENGA DIRECTOR OF STRATEGIC INITIATIVES Ot R11.0 NAUSEA 12/19/2016 RAFA ALVARENGA DIRECTOR OF STRATEGIC INITIATIVES Ot Z79.899 OTHER ENGINEERING JOB TITLES (CURRENT) DRUG THERAPY 12/25/2016 RAFA ALVARENGA DIRECTOR OF STRATEGIC INITIATIVES Ot F17.210 NICOTINE DEPENDENCE, CIGARETTES, UNCOMPL 12/25/2016 RAFA ALVARENGA DIRECTOR OF STRATEGIC INITIATIVES Ot G89.29 OTHER CHRONIC PAIN 12/25/2016 RAFA ALVARENGA DIRECTOR OF STRATEGIC INITIATIVES Ot K58.0 IRRITABLE BOWEL SYNDROME WITH DIARRHEA 12/25/2016 RAFA ALVARENGA APRN Ot R11.0 NAUSEA 12/25/2016 RAFA ALVARENGA DIRECTOR OF STRATEGIC INITIATIVES Ot Z79.899 OTHER ALF (CURRENT) DRUG THERAPY 12/27/2016 MOMO GILBERT Ot M62.82 RHABDOMYOLYSIS 01/23/2017 RAFA ALVARENGA DIRECTOR OF STRATEGIC INITIATIVES Ot F17.210 NICOTINE DEPENDENCE, CIGARETTES, UNCOMPL 01/23/2017 RAFA ALVARENGA DIRECTOR OF STRATEGIC INITIATIVES Ot R22.1 LOCALIZED SWELLING, MASS AND LUMP, NECK 01/23/2017 Ot 789.01 ABDOMINAL PAIN, RIGHT UPPER QUADRANT 01/23/2017 Ot 789.59 OTHER ASCITES 01/23/2017 MARITZA LACNE, PAULINA Lock Ot 305.1 TOBACCO USE DISORDER 01/23/2017 MARITZA LANCE, PAULINA Lock Ot 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 01/23/2017 MARITZA LANCE, PAULINA Lock Ot 729.5 PAIN IN LIMB 01/23/2017 DANDRE LANCE, ANN Akins Ot 788.30 UNSPECIFIED URINARY INCONTINENCE 01/23/2017 DHIRAJ LANCE FACC, ALI FACP CCDS Ot 305.1 TOBACCO USE DISORDER 01/23/2017 DHIRAJ LANCE FACC, ALI FACP CCDS Ot 729.1 MYALGIA AND MYOSITIS NOS 01/23/2017 DHIRAJ LANCE [facility], [facility] FACP CCDS Ot 729.81 SWELLING OF LIMB 01/23/2017 DHIRAJ LANCE [facility] CCDS Ot 780.79 OTH MALAISE FATIGUE 01/23/2017 DHIRAJ LANCE [facility], ALI FACP CCDS Ot 786.09 RESPIRATORY ABNORM NEC 01/23/2017 DHIRAJ LANCE [facility] Ot 786.59 CHEST PAIN NEC 02/07/2017 [...] ABSENCE OF OTHER SPECIFIED PART 02/07/2017 TIFFANY SAUCEDO MD Ot Z90.89 ACQUIRED ABSENCE [...] Z90.89 ACQUIRED ABSENCE OF OTHER ORGANS 02/13/2017 JESUS LANCE, INGRID Melendez Ot R10.11 RIGHT UPPER QUADRANT PAIN 02/13/2017 JESUS LANCE, INGRID Melendez Ot Z90.49 ACQUIRED ABSENCE OF OTHER SPECIFIED PART 02/14/2017 CECILIA LANCE, ONEIL Shoemaker Ot R10.9 UNSPECIFIED ABDOMINAL PAIN 02/18/2017 MILY, BAR PROGRAM REVIEW DIRECTOR Ot F17.210 NICOTINE DEPENDENCE, CIGARETTES, UNCOMPL 02/18/2017 MILY, BAR PROGRAM REVIEW DIRECTOR Ot F32.9 MAJOR DEPRESSIVE DISORDER, SINGLE EPISOD 02/18/2017 MILY, BAR PROGRAM REVIEW DIRECTOR Ot F41.9 ANXIETY DISORDER, UNSPECIFIED 02/18/2017 MILY, BAR PROGRAM REVIEW DIRECTOR Ot G43.909 MIGRAINE, UNSP, NOT INTRACTABLE, WITHOUT 02/18/2017 MILY, BAR PROGRAM REVIEW DIRECTOR Ot G89.29 OTHER CHRONIC PAIN 02/18/2017 MILY, BAR PROGRAM REVIEW DIRECTOR Ot K21.9 GASTRO- ESOPHAGEAL REFLUX DISEASE WITHOUT 02/18/2017 MILY, BAR PROGRAM REVIEW DIRECTOR Ot M26.603 BILATERAL TEMPOROMANDIBULAR JOINT DISORD 02/18/2017 MILY, BAR PROGRAM REVIEW DIRECTOR Ot M54.9 DORSALGIA, UNSPECIFIED 02/18/2017 MILY, BAR PROGRAM REVIEW DIRECTOR Ot R10.84 GENERALIZED ABDOMINAL PAIN 02/18/2017 MILY, BAR PROGRAM REVIEW DIRECTOR Ot R53.82 CHRONIC FATIGUE, UNSPECIFIED 02/18/2017 MILY, BAR PROGRAM REVIEW DIRECTOR Ot R68.84 JAW PAIN 02/18/2017 MILY, BAR PROGRAM REVIEW DIRECTOR Ot Z87.42 PERSONAL HISTORY OF OTH DISEASES [...] Ot R10.11 RIGHT UPPER QUADRANT PAIN 03/24/2017 INGRID LEE MD Ot Z90.49 ACQUIRED ABSENCE OF OTHER SPECIFIED PART 04/01/2017 MONIKA SANAM RAMOS Ot F17.210 NICOTINE DEPENDENCE, CIGARETTES, UNCOMPL 04/01/2017 SANAM FRANK DO Ot F32.9 MAJOR DEPRESSIVE DISORDER, SINGLE EPISOD 04/01/2017 MONIKA TRISHA RAMOSA Raj Ot F41.9 ANXIETY DISORDER, UNSPECIFIED 04/01/2017 TRISHA FRANK DOA Raj Ot G43.909 MIGRAINE, UNSP, NOT INTRACTABLE, WITHOUT 04/01/2017 MONIKA RAMOS SANAM K Ot G89.29 OTHER CHRONIC PAIN 04/01/2017 TRISHA FRANK DOA Raj Ot K21.9 GASTRO-ESOPHAGEAL REFLUX DISEASE WITHOUT 04/01/2017 TRISHA FRANK DOA Raj Ot M79.7 FIBROMYALGIA 04/01/2017 TRISHA FRANK DOA Raj Ot N39.0 URINARY TRACT INFECTION, SITE NOT SPECIF 04/01/2017 SANAM FRANK DO Ot R52 PAIN, UNSPECIFIED 04/01/2017 TRISHA FRANK DOA K Ot R53.83 OTHER FATIGUE 04/01/2017 TRISHA FRANK DOA Raj Ot R94.5 ABNORMAL RESULTS OF LIVER FUNCTION [...] SPECIFIED PART 04/01/2017 SANAM FRANK DO Ot Z90.710 ACQUIRED ABSENCE OF BOTH CERVIX AND UTER 04/04/2017 TRISHA FRANK DOA Raj Ot F17.210 NICOTINE DEPENDENCE, CIGARETTES, UNCOMPL 04/04/2017 MONIKA RAMOS SANAM Anthony Ot F32.9 MAJOR DEPRESSIVE DISORDER, SINGLE EPISOD 04/04/2017 MONIKA RAMOS SANAM K Ot F41.9 ANXIETY DISORDER, UNSPECIFIED 04/04/2017 SANAM FRANK DO K Ot G43.909 MIGRAINE, UNSP, NOT INTRACTABLE, WITHOUT 04/04/2017 MONIKA ASNAM K Ot G89.29 OTHER CHRONIC PAIN 04/04/2017 MONIKA SANAM K Ot K21.9 GASTRO-ESOPHAGEAL REFLUX DISEASE WITHOUT 04/04/2017 MONIKA SANAM Anthony Ot M79.7 FIBROMYALGIA 04/04/2017 MONIKA SANAM Anthony Ot N39.0 URINARY TRACT INFECTION, SITE NOT SPECIF 04/04/2017 MONIKA RAMOS SANAM K Ot R52 PAIN, UNSPECIFIED 04/04/2017 MONIKA SANAM K Ot R53.83 OTHER FATIGUE 04/04/2017 MONIKA RAMOS SANAM Anthony Ot R94.5 ABNORMAL RESULTS OF LIVER FUNCTION STUDI 04/04/2017 MONIKA RAMOS SANAM K Ot Z82.49 FAMILY HX OF ISCHEM HEART DIS AND OTH DI 04/04/2017 MONIKA RAMOS SANAM Anthony Ot Z87.19 PERSONAL HISTORY OF OTHER DISEASES OF TH 04/04/2017 MONIKA RAMOS SANAM Anthony Ot Z87.448 PERSONAL HISTORY OF OTHER DISEASES OF UR 04/04/2017 MONIKA RAMOS SANAM Anthony Ot Z90.49 ACQUIRED ABSENCE OF OTHER SPECIFIED PART 04/04/2017 MONIKA RAMOS SANAM Anthony Ot Z90.710 ACQUIRED ABSENCE OF BOTH CERVIX AND UTER 04/04/2017 JESUS LANCE, INGRID Melendez Ot R10.11 RIGHT UPPER QUADRANT PAIN 04/04/2017 INGRID LEE MD Ot Z90.49 ACQUIRED ABSENCE OF OTHER SPECIFIED PART 04/07/2017 MONIKA SANAM Raj Ot F17.210 NICOTINE DEPENDENCE, CIGARETTES, UNCOMPL 04/07/2017 MONIKA RAMOS SANAM K Ot F32.9 MAJOR DEPRESSIVE DISORDER, SINGLE EPISOD 04/07/2017 MONIKA SANAM Anthony Ot F41.9 ANXIETY DISORDER, UNSPECIFIED 04/07/2017 SANAM [...] ABNORMAL RESULTS OF LIVER FUNCTION STUDI 04/07/2017 MONIKA RAMOS SANAM Anthony Ot Z82.49 FAMILY HX OF ISCHEM HEART DIS AND OTH DI 04/07/2017 MONIKA RAMOS SANAM Anthony Ot Z87.19 PERSONAL HISTORY OF OTHER DISEASES OF TH 04/07/2017 MONIKA RAMOS SANAM Anthony Ot Z87.448 PERSONAL HISTORY OF OTHER DISEASES OF UR 04/07/2017 MONIKA RAMOS SANAM Anthony Ot Z90.49 ACQUIRED ABSENCE OF OTHER SPECIFIED PART 04/07/2017 MONIKA RAMOS SANAM Anthony Ot Z90.710 ACQUIRED ABSENCE OF BOTH CERVIX AND UTER 04/17/2017 MARITZA LANCE, PAULINA Lock Ot 305.1 TOBACCO USE DISORDER 04/17/2017 MARITZA LANCE, PAULINA Lock Ot 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 04/17/2017 MARITZA LANCE, PAULINA Lock Ot 729.5 PAIN IN LIMB 04/17/2017 DANDRE LANCE, ANN Akins Ot 788.30 UNSPECIFIED URINARY INCONTINENCE 04/17/2017 DHIRAJ LANCE FACC, ALI FACP CCDS Ot 305.1 TOBACCO USE DISORDER 04/17/2017 DHIRAJ LANCE FACC, ALI FACP CCDS Ot 729.1 MYALGIA AND MYOSITIS NOS 04/17/2017 DHIRAJ LANCE FACC, ELEUTERIO FACP CCDS Ot 729.81 SWELLING OF LIMB 04/17/2017 DHIRAJ LANCE FACC, ELEUTERIO FACP CCDS Ot 780.79 OTH MALAISE FATIGUE 04/17/2017 DHIRAJ LANCE FACC, ELEUTERIO FACP CCDS Ot 786.09 RESPIRATORY ABNORM NEC 04/17/2017 DHIRAJ LANCE FACC, ALI FACP CCDS Ot 786.59 CHEST PAIN NEC 04/17/2017 MOMO GILBERT PROGRAM REVIEW DIRECTOR Ot M62.82 RHABDOMYOLYSIS 04/17/2017 INGRID LEE MD [...] ABSENCE OF BOTH CERVIX AND UTER 05/05/2017 DANDRE LANCE, ANN Akins Ot 788.30 UNSPECIFIED URINARY INCONTINENCE 05/05/2017 DHIRAJ LANCE FAC, ALI FACP CCDS Ot 305.1 TOBACCO USE DISORDER 05/05/2017 DHIRAJ LANCE FAC, ALI FACP CCDS Ot 729.1 MYALGIA AND MYOSITIS NOS 05/05/2017 DHIRAJ LANCE FAC, ALI FACP CCDS Ot 729.81 SWELLING OF LIMB 05/05/2017 DHIRAJ LANCE FACC, ALI FACP CCDS Ot 780.79 OTH MALAISE FATIGUE 05/05/2017 DHIRAJ LANCE FACC, ALI FACP CCDS Ot 786.09 RESPIRATORY ABNORM NEC 05/05/2017 DHIRAJ LANCE FACC, ALI FACP CCDS Ot 786.59 CHEST PAIN NEC 05/05/2017 MOMO GILBERT PROGRAM REVIEW DIRECTOR Ot M62.82 RHABDOMYOLYSIS 05/05/2017 JESUS LANCE, INGRID Melendez Ot R10.11 RIGHT UPPER QUADRANT PAIN 05/05/2017 INGRID LEE MD Ot Z90.49 ACQUIRED ABSENCE OF OTHER SPECIFIED PART 05/12/2017 GUIDO MNEDEZ APRN Ot R94.6 ABNORMAL RESULTS OF THYROID FUNCTION SIXTO 05/23/2017 ALLYSON QUIROZ MD Ot M25.552 PAIN IN LEFT HIP 05/23/2017 ALLYSON QUIROZ MD Ot M25.561 PAIN IN RIGHT KNEE 05/27/2017 GUIDO MENDEZ APRN Ot R94.6 ABNORMAL RESULTS OF THYROID FUNCTION SIXTO 06/06/2017 GUIDO MENDEZ APRN Ot R94.6 ABNORMAL RESULTS OF THYROID FUNCTION [...] BOTH CERVIX AND UTER 09/19/2017 GUIDO MENDEZ DIRECTOR OF STRATEGIC INITIATIVES Ot M54.5 LOW BACK PAIN 10/14/2017 GUIDO MENDEZ DIRECTOR OF STRATEGIC INITIATIVES Ot M54.5 LOW BACK PAIN 10/17/2017 GUIDO MENDEZ DIRECTOR OF STRATEGIC INITIATIVES Ot M54.5 LOW BACK PAIN 03/31/2018 JANEEN ERNANDEZ DIRECTOR OF STRATEGIC INITIATIVES Ot G47.33 OBSTRUCTIVE SLEEP APNEA (ADULT) (PEDIATR [...] 786.59 CHEST PAIN NEC 04/07/2018 MOMO GILBERT PROGRAM REVIEW DIRECTOR Ot M62.82 RHABDOMYOLYSIS 04/07/2018 JESUS LANCE, INGRID Melendez Ot R10.11 RIGHT UPPER QUADRANT PAIN 04/07/2018 JESUS LANCE, INGRID Melendez Ot Z90.49 ACQUIRED ABSENCE OF OTHER SPECIFIED PART 04/07/2018 GUIDO MENDEZ DIRECTOR OF STRATEGIC INITIATIVES Ot R94.6 ABNORMAL RESULTS OF THYROID FUNCTION SIXTO 04/07/2018 RICHIE LANCE, ALLYSON Shoemaker Ot M25.552 PAIN IN LEFT HIP 04/07/2018 ALLYSON QUIROZ MD Ot M25.561 PAIN IN RIGHT KNEE 04/07/2018 GUIDO MENDEZ DIRECTOR OF STRATEGIC INITIATIVES Ot M54.5 LOW BACK PAIN 04/07/2018 JANEEN ERNANDEZ DIRECTOR OF STRATEGIC INITIATIVES Ot G47.33 OBSTRUCTIVE SLEEP APNEA (ADULT) (PEDIATR 04/08/2018 JANEEN ERNANDEZ DIRECTOR OF STRATEGIC INITIATIVES Ot G47.33 OBSTRUCTIVE SLEEP APNEA (ADULT) (PEDIATR 04/08/2018 JANEEN ERNANDEZ DIRECTOR OF STRATEGIC INITIATIVES Ot G47.33 OBSTRUCTIVE SLEEP APNEA (ADULT) (PEDIATR 04/08/2018 MARITZA LANCE, PAULINA Lock Ot 305.1 TOBACCO USE DISORDER 04/08/2018 MARITZA LANCE, PAULINA Lock Ot 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 04/08/2018 MARITZA LANCE, PAULINA Lock Ot 729.5 PAIN IN LIMB 04/08/2018 ANN AMOS MD Ot 788.30 UNSPECIFIED URINARY INCONTINENCE 04/08/2018 DHIRAJ LANCE FAC, ALI FACP CCDS Ot 305.1 TOBACCO USE DISORDER 04/08/2018 DHRIAJ LANCE FACC, ALI FACP CCDS Ot 729.1 MYALGIA AND MYOSITIS NOS 04/08/2018 DHIRAJ LANCE FACC, ALI FACP CCDS Ot 729.81 SWELLING OF LIMB 04/08/2018 DHIRAJ LANCE FACC, ALI FACP CCDS Ot 780.79 OTH MALAISE FATIGUE 04/08/2018 DHIRAJ LANCE FACC, ALI FACP CCDS Ot 786.09 RESPIRATORY ABNORM NEC 04/08/2018 DHIRAJ LANCE FACC, ALI FACP CCDS Ot 786.59 CHEST PAIN NEC 04/08/2018 MOMO GILBERT PROGRAM REVIEW DIRECTOR Ot M62.82 RHABDOMYOLYSIS 04/08/2018 INGRID LEE MD Ot R10.11 RIGHT UPPER QUADRANT PAIN 04/08/2018 INGRID LEE MD Ot Z90.49 ACQUIRED ABSENCE OF OTHER SPECIFIED PART 04/08/2018 GUIDO MENDEZ DIRECTOR OF STRATEGIC INITIATIVES Ot R94.6 ABNORMAL RESULTS OF THYROID FUNCTION SIXTO 04/08/2018 ALLYSON QUIROZ MD Ot M25.552 PAIN IN LEFT HIP 04/08/2018 ALLYSON QUIROZ MD Ot M25.561 PAIN IN RIGHT KNEE 04/08/2018 GUIDO MENDEZ DIRECTOR OF STRATEGIC INITIATIVES Ot M54.5 LOW BACK PAIN 04/08/2018 JANEEN ERNANDEZ DIRECTOR OF STRATEGIC INITIATIVES Ot G47.33 OBSTRUCTIVE SLEEP APNEA (ADULT) (PEDIATR 04/08/2018 JANEEN ERNANDEZ DIRECTOR OF STRATEGIC INITIATIVES Ot G47.33 OBSTRUCTIVE SLEEP APNEA (ADULT) (PEDIATR 04/08/2018 MARITZA LANCE, PAULINA Lock Ot 305.1 TOBACCO USE DISORDER 04/08/2018 MARITZA LANCE, PAULINA Lock Ot 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 04/08/2018 MARITZA LANCE, PAULINA Lock Ot 729.5 PAIN IN LIMB 04/08/2018 ANN AMOS MD A Ot 788.30 UNSPECIFIED URINARY INCONTINENCE 04/08/2018 DHIRAJ LANCE FAC, ALI FACP CCDS Ot 305.1 TOBACCO USE DISORDER 04/08/2018 DHIRAJ LANCE FAC, ALI FACP CCDS Ot 729.1 MYALGIA AND MYOSITIS NOS 04/08/2018 DHIRAJ LANCE FAC, ALI FACP CCDS Ot 729.81 SWELLING OF LIMB 04/08/2018 DHIRAJ LANCE FAC, ALI FACP CCDS Ot 780.79 OTH MALAISE FATIGUE 04/08/2018 DHIRAJ LANCE FAC, ALI FACP CCDS Ot 786.09 RESPIRATORY ABNORM NEC 04/08/2018 DHIRAJ LANCE FAC, ALI FACP CCDS Ot 786.59 CHEST PAIN NEC 04/08/2018 MOMO GILBERT PROGRAM REVIEW DIRECTOR Ot M62.82 RHABDOMYOLYSIS 04/08/2018 JESUS LANCE, INGRID Melendez Ot R10.11 RIGHT UPPER QUADRANT PAIN 04/08/2018 INGRID LEE MD Ot Z90.49 ACQUIRED ABSENCE OF OTHER SPECIFIED PART 04/08/2018 GUIDO MENDEZ DIRECTOR OF STRATEGIC INITIATIVES Ot R94.6 ABNORMAL RESULTS OF THYROID FUNCTION SIXTO 04/08/2018 RICHIE LANCE, ALLYSON Shoemaker Ot M25.552 PAIN IN LEFT HIP 04/08/2018 ALLYSON QUIROZ MD Ot M25.561 PAIN IN RIGHT KNEE 04/08/2018 GUIDO MENDEZ DIRECTOR OF STRATEGIC INITIATIVES Ot M54.5 LOW BACK PAIN 04/08/2018 JANEEN ERNANDEZ DIRECTOR OF STRATEGIC INITIATIVES Ot G47.33 OBSTRUCTIVE SLEEP APNEA (ADULT) (PEDIATR 05/12/2018 ONEIL BROOKS MD Ot F17.290 NICOTINE DEPENDENCE, OTHER TOBACCO PRODU 05/12/2018 ONEIL BROOKS MD Ot F32.9 MAJOR DEPRESSIVE DISORDER, SINGLE EPISOD 05/12/2018 ONEIL BROOKS MD Ot F41.9 ANXIETY DISORDER, UNSPECIFIED 05/12/2018 ONEIL BROOKS MD Ot G43.909 MIGRAINE, UNSP, NOT INTRACTABLE, WITHOUT 05/12/2018 ONEIL BROOKS MD Ot K21.9 GASTRO-ESOPHAGEAL REFLUX DISEASE WITHOUT 05/12/2018 ONEIL BROOKS MD Ot Z79.52 ENGINEERING JOB TITLES (CURRENT) USE OF SYSTEMIC STER 05/12/2018 ONEIL BROOKS MD, Ot Z82.49 FAMILY HX OF ISCHEM HEART DIS AND OTH DI 05/12/2018 ONEIL BROOKS MD, Ot Z87.19 PERSONAL HISTORY OF OTHER DISEASES OF TH 05/12/2018 ONEIL BROOKS MD, Ot Z87.448 PERSONAL HISTORY OF OTHER DISEASES OF UR 05/12/2018 ONEIL BROOKS MD, Ot Z88.5 ALLERGY STATUS TO NARCOTIC AGENT STATUS 05/12/2018 ONEIL BROOKS MD, Ot Z88.8 ALLERGY STATUS TO OTH DRUG/MEDS/BIOL SUB 05/12/2018 ONEIL BROOKS MD, Ot Z90.710 ACQUIRED ABSENCE OF BOTH CERVIX AND UTER 05/12/2018 ONEIL BROOKS MD, Ot Z90.89 ACQUIRED ABSENCE OF OTHER ORGANS 05/12/2018 ONEIL BROOKS MD, Ot Z98.890 OTHER SPECIFIED POSTPROCEDURAL STATES 11/19/2018 DANDRE LANCE, ANN Akins Ot 788.30 UNSPECIFIED URINARY INCONTINENCE 11/19/2018 DHIRAJ LANCE FAC, ALI FACP CCDS Ot 305.1 TOBACCO USE DISORDER 11/19/2018 DHIRAJ LANCE FAC, ALI FACP CCDS Ot 729.1 MYALGIA AND MYOSITIS NOS 11/19/2018 DHIRAJ LANCE FACC, ALI FACP CCDS Ot 729.81 SWELLING OF LIMB 11/19/2018 DHIRAJ LANCE FACC, ALI FACP CCDS Ot 780.79 OTH MALAISE FATIGUE 11/19/2018 DHIRAJ LANCE FACC, ALI FACP CCDS Ot 786.09 RESPIRATORY ABNORM NEC 11/19/2018 DHIRAJ LANCE FAC, ALI FACP CCDS Ot 786.59 CHEST PAIN NEC 11/19/2018 MOMO GILBERT PROGRAM REVIEW DIRECTOR Ot M62.82 RHABDOMYOLYSIS 11/19/2018 INGRID LEE MD Ot R10.11 RIGHT UPPER QUADRANT PAIN 11/19/2018 INGRID LEE MD Ot Z90.49 ACQUIRED ABSENCE OF OTHER SPECIFIED PART 11/19/2018 GUIDO MENDEZ APRN Ot R94.6 ABNORMAL RESULTS OF THYROID FUNCTION SIXTO 11/19/2018 ALLYSON QUIROZ MD Ot M25.552 PAIN IN LEFT HIP 11/19/2018 ALLYSON QUIROZ MD Ot M25.561 PAIN IN RIGHT KNEE 11/19/2018 GUIDO MENDEZ DIRECTOR OF STRATEGIC INITIATIVES Ot M54.5 LOW BACK PAIN 11/23/2018 AWAIS JANEEN Mendoza DIRECTOR OF STRATEGIC INITIATIVES Ot M46.87 OT INFLAMMATORY SPONDYLOPATHIES, LUMBOS 11/29/2018 AWAISJANEEN DIRECTOR OF STRATEGIC INITIATIVES Ot M46.87 OT INFLAMMATORY SPONDYLOPATHIES, LUMBOS 12/15/2018 AWAIS JANEEN Mendoza DIRECTOR OF STRATEGIC INITIATIVES Ot M46.87 OT INFLAMMATORY SPONDYLOPATHIES, LUMBOS 12/25/2018 AWAIS JANEEN Mendoza DIRECTOR OF STRATEGIC INITIATIVES Ot M46.87 OT INFLAMMATORY SPONDYLOPATHIES, LUMBOS Procedures There is no data. Results Test [...] Automated erythrocyte mean corpuscular hemoglobin concentration measurement (mass/volume) 34 g/dL 32-36 Automated erythrocyte distribution width ratio 15.7 % 10.0- 14.5 Automated blood platelet count (count/volume) 354 10*3/uL [...] Blood monocytes automated count (number/volume) 0.7 10*3 0.0- 1.0 Automated eosinophil count 0.2 10*3/uL 0.0-0.3 Automated [...] Serum or plasma aspartate aminotransferase measurement (enzymatic activity/volume) 23 U/L 5-34 Serum or plasma alanine aminotransferase measurement (enzymatic activity/volume) 22 U/L 0-55 Serum or plasma protein [...] Automated erythrocyte mean corpuscular hemoglobin concentration measurement (mass/volume) 33 g/dL 32-36 Automated erythrocyte distribution width ratio 15.7 % 10.0- 14.5 Automated blood platelet count (count/volume) 346 10*3/uL [...] Blood monocytes automated count (number/volume) 0.5 10*3 0.0- 1.0 Automated eosinophil count 0.1 10*3/uL 0.0-0.3 Automated [...] Serum or plasma aspartate aminotransferase measurement (enzymatic activity/volume) 28 U/L 5-34 Serum or plasma alanine aminotransferase measurement (enzymatic activity/volume) 27 U/L 0-55 Serum or plasma protein measurement (mass/volume) 8.0 g/dL 6.4-8.2 Serum or plasma albumin measurement (mass/volume) 4.3 g/dL 3.2-4.5 Serum or plasma creatine kinase measurement (enzymatic activity/volume) - 12/02/16 14:45 Serum or plasma creatine kinase measurement [...] Serum or plasma aspartate aminotransferase measurement (enzymatic activity/volume) 18 U/L 5-34 Serum or plasma alanine aminotransferase measurement (enzymatic activity/volume) 22 U/L 0-55 Serum or plasma protein measurement (mass/volume) 7.4 g/dL 6.4-8.2 Serum or plasma albumin measurement (mass/volume) 4.0 g/dL 3.2-4.5 Serum or plasma creatine kinase measurement (enzymatic activity/volume) - 12/04/16 13:17 Serum or plasma creatine kinase measurement [...] sediment leukocyte count by microscopy (number/high power field) NONE NRG Bacteria detection in urine sediment [...] Automated erythrocyte mean corpuscular hemoglobin concentration measurement (mass/volume) 34 g/dL 32-36 Automated erythrocyte distribution width ratio 15.5 % 10.0- 14.5 Automated blood platelet count (count/volume) 319 10*3/uL [...] Blood monocytes automated count (number/volume) 0.6 10*3 0.0- 1.0 Automated eosinophil count 0.2 10*3/uL 0.0-0.3 Automated [...] Serum or plasma aspartate aminotransferase measurement (enzymatic activity/volume) 21 U/L 5-34 Serum or plasma alanine aminotransferase measurement (enzymatic activity/volume) 32 U/L 0-55 Serum or plasma protein measurement (mass/volume) 7.3 g/dL 6.4-8.2 Serum or plasma albumin measurement (mass/volume) 4.0 g/dL 3.2-4.5 Magnesium - 12/07/16 08:31 Magnesium 2.1 mg/dL 1.8-2.4 Serum or plasma creatine kinase measurement (enzymatic activity/volume) - 12/07/16 08:31 Serum or plasma creatine kinase measurement [...] Automated erythrocyte mean corpuscular hemoglobin concentration measurement (mass/volume) 34 g/dL 32-36 Automated erythrocyte distribution width ratio 15.6 % 10.0- 14.5 Automated blood platelet count (count/volume) 345 10*3/uL [...] Blood monocytes automated count (number/volume) 0.5 10*3 0.0- 1.0 Automated eosinophil count 0.1 10*3/uL 0.0-0.3 Automated [...] Serum or plasma aspartate aminotransferase measurement (enzymatic activity/volume) 17 U/L 5-34 Serum or plasma alanine aminotransferase measurement (enzymatic activity/volume) 35 U/L 0-55 Serum or plasma protein [...] sediment leukocyte count by microscopy (number/high power field) [HPF] NRG Bacteria detection in urine sediment [...] culture - 12/19/16 12:55 Bacterial urine culture [id number] NRG COLONY COUNT >100,000/ML NRG FTX;REPORTABLE SENSITIVITY REPORTED AT 1002, 5--17 NRG URINE CULTURE RESULTS PLUS NRG Bacterial [...] Automated erythrocyte mean corpuscular hemoglobin concentration measurement (mass/volume) 34 g/dL 32-36 Automated erythrocyte distribution width ratio 15.0 % 10.0- 14.5 Automated blood platelet count (count/volume) 330 10*3/uL [...] Blood monocytes automated count (number/volume) 0.5 10*3 0.0- 1.0 Automated eosinophil count 0.1 10*3/uL 0.0-0.3 Automated [...] sediment leukocyte count by microscopy (number/high power field) NONE NRG Bacteria detection in urine sediment [...] Serum or plasma aspartate aminotransferase measurement (enzymatic activity/volume) 25 U/L 5-34 Serum or plasma alanine aminotransferase measurement (enzymatic activity/volume) 56 U/L 0-55 Serum or plasma protein [...] Automated erythrocyte mean corpuscular hemoglobin concentration measurement (mass/volume) 34 g/dL 32-36 Automated erythrocyte distribution width ratio 15.1 % 10.0- 14.5 Automated blood platelet count (count/volume) 346 10*3/uL [...] Blood monocytes automated count (number/volume) 0.5 10*3 0.0- 1.0 Automated eosinophil count 0.1 10*3/uL 0.0-0.3 Automated [...] Serum or plasma aspartate aminotransferase measurement (enzymatic activity/volume) 24 U/L 5-34 Serum or plasma alanine aminotransferase measurement (enzymatic activity/volume) 51 U/L 0-55 Serum or plasma protein [...] Automated erythrocyte mean corpuscular hemoglobin concentration measurement (mass/volume) 34 g/dL 32-36 Automated erythrocyte distribution width ratio 15.4 % 10.0- 14.5 Automated blood platelet count (count/volume) 324 10*3/uL [...] Blood monocytes automated count (number/volume) 0.5 10*3 0.0- 1.0 Automated eosinophil count 0.1 10*3/uL 0.0-0.3 Automated blood basophil count (count/volume) 0.0 10*3/uL 0.0-0.1 Complete urinalysis with reflex to culture - 02/18/17 16:55 Urine color determination YELLOW NRG Urine clarity determination CLEAR NRG Urine pH measurement by test strip 6 5-9 Specific gravity of urine by test strip 1.005 1.016-1.022 Urine protein assay by test strip, [...] sediment leukocyte count by microscopy (number/high power field) NONE NRG Bacteria detection in urine sediment [...] Serum or plasma aspartate aminotransferase measurement (enzymatic activity/volume) 18 U/L 5-34 Serum or plasma alanine aminotransferase measurement (enzymatic activity/volume) 51 U/L 0-55 Serum or plasma protein [...] Automated erythrocyte mean corpuscular hemoglobin concentration measurement (mass/volume) 33 g/dL 32-36 Automated erythrocyte distribution width ratio 16.5 % 10.0- 14.5 Automated blood platelet count (count/volume) 333 10*3/uL [...] Blood monocytes automated count (number/volume) 0.4 10*3 0.0- 1.0 Automated eosinophil count 0.1 10*3/uL 0.0-0.3 Automated [...] Serum or plasma aspartate aminotransferase measurement (enzymatic activity/volume) 24 U/L 5-34 Serum or plasma alanine aminotransferase measurement (enzymatic activity/volume) 59 U/L 0-55 Serum or plasma protein measurement (mass/volume) 7.8 g/dL 6.4-8.2 Serum or plasma albumin measurement (mass/volume) 4.1 g/dL 3.2-4.5 Magnesium - 04/01/17 08:40 Magnesium 2.2 mg/dL 1.8-2.4 Serum or plasma amylase measurement (enzymatic activity/volume) - 04/01/17 08:40 Serum or plasma amylase measurement (enzymatic activity/volume) 68 U/L 25-125 Lipase - 04/01/17 08:40 Lipase < U/L 8-78 Serum or plasma thyrotropin measurement by detection limit <=0.05 miu/l (units/volume) - 04/01/17 08:40 Serum or plasma thyrotropin measurement by detection limit <=0.05 miu/l (units/volume) 1.02 u[iU]/mL 0.35-4.94 Serum or plasma ethanol [...] Hepatitis A virus IgM antibody assay Non-Reactive Non-Reactive Hepatitis B virus core IgM antibody assay Non-Reactive Non- Reactive Serum hepatitis C virus antibody detection Non-Reactive Non- Reactive Complete urinalysis with reflex to culture - [...] sediment leukocyte count by microscopy (number/high power field) > [HPF] NRG Bacteria detection in urine [...] culture - 04/01/17 08:49 Bacterial urine culture [id number] NRG COLONY COUNT 10,000/ML - 100,000/ML NRG [...] Automated erythrocyte mean corpuscular hemoglobin concentration measurement (mass/volume) 33 g/dL 32-36 Automated erythrocyte distribution width ratio 17.0 % 10.0- 14.5 Automated blood platelet count (count/volume) 322 10*3/uL [...] Blood monocytes automated count (number/volume) 0.8 10*3 0.0- 1.0 Automated eosinophil count 0.1 10*3/uL 0.0-0.3 Automated [...] measurement in platelet poor plasma (mass/volume) - 04/27/17 22:30 Fibrin D-dimer FEU measurement in platelet [...] Serum or plasma aspartate aminotransferase measurement (enzymatic activity/volume) 27 U/L 5-34 Serum or plasma alanine aminotransferase measurement (enzymatic activity/volume) 56 U/L 0-55 Serum or plasma protein measurement (mass/volume) 6.6 g/dL 6.4-8.2 Serum or plasma albumin measurement (mass/volume) 3.4 g/dL 3.2-4.5 Magnesium - 04/27/17 22:30 Magnesium 2.2 mg/dL 1.8-2.4 Serum or plasma troponin i.cardiac measurement (mass/volume) - 04/27/17 22:30 Serum or plasma troponin i.cardiac measurement (mass/volume) < ng/mL <0.30 Complete urinalysis with reflex to culture [...] sediment leukocyte count by microscopy (number/high power field) NONE NRG Bacteria detection in urine sediment [...] sediment leukocyte count by microscopy (number/high power field) [HPF] NRG Bacteria detection in urine sediment [...] Automated erythrocyte mean corpuscular hemoglobin concentration measurement (mass/volume) 34 g/dL 32-36 Automated erythrocyte distribution width ratio 16.7 % 10.0- 14.5 Automated blood platelet count (count/volume) 314 10*3/uL [...] Blood monocytes automated count (number/volume) 0.5 10*3 0.0- 1.0 Automated eosinophil count 0.1 10*3/uL 0.0-0.3 Automated [...] Serum or plasma aspartate aminotransferase measurement (enzymatic activity/volume) 17 U/L 5-34 Serum or plasma alanine aminotransferase measurement (enzymatic activity/volume) 27 U/L 0-55 Serum or plasma protein measurement (mass/volume) 7.7 g/dL 6.4-8.2 Serum or plasma albumin measurement (mass/volume) 3.9 g/dL 3.2-4.5 Complete blood count (CBC) with automated white blood cell (WBC) differential - 05/12/18 20:24 Blood leukocytes automated count (number/volume) 9.9 10*3/uL 4.3-11.0 Blood erythrocytes automated count (number/volume) 4.82 10*6/uL 4.35-5.85 Venous blood hemoglobin measurement (mass/volume) 14.1 g/dL 11.5-16.0 Blood hematocrit (volume fraction) 40 % 35-52 Automated erythrocyte mean corpuscular volume 82 [foz_us] 80-99 Automated erythrocyte mean corpuscular hemoglobin (mass per erythrocyte) 29 pg 25-34 Automated erythrocyte mean corpuscular hemoglobin concentration measurement (mass/volume) 36 g/dL 32-36 Automated erythrocyte distribution width ratio 15.6 % 10.0- 14.5 Automated blood platelet count (count/volume) 277 10*3/uL 130-400 Automated blood platelet mean volume measurement 9.8 [foz_us] 7.4-10.4 Automated blood neutrophils/100 leukocytes 58 % 42-75 Automated blood lymphocytes/100 leukocytes 33 % 12-44 Blood monocytes/100 leukocytes 7 % 0-12 Automated blood eosinophils/100 leukocytes 2 % 0-10 Automated blood basophils/100 leukocytes 1 % 0-10 Blood neutrophils automated count (number/volume) 5.7 10*3 1.8-7.8 Blood lymphocytes automated count (number/volume) 3.3 10*3 1.0-4.0 Blood monocytes automated count (number/volume) 0.7 10*3 0.0- 1.0 Automated eosinophil count 0.2 10*3/uL 0.0-0.3 Automated blood basophil count (count/volume) 0.1 10*3/uL 0.0-0.1 Comprehensive metabolic panel - 05/12/18 20:24 Serum or plasma sodium measurement (moles/volume) 143 mmol/L 135-145 Serum or plasma potassium measurement (moles/volume) 3.4 mmol/L 3.6-5.0 Serum or plasma chloride measurement (moles/volume) 107 mmol/L 98-107 Carbon dioxide 25 mmol/L 21-32 Serum or plasma anion gap determination (moles/volume) 11 mmol/L 5-14 Serum or plasma urea nitrogen measurement (mass/volume) 12 mg/dL 7-18 Serum or plasma creatinine measurement (mass/volume) 0.88 mg/dL 0.60-1.30 Serum or plasma urea nitrogen/creatinine mass ratio 14 NRG Serum or plasma creatinine measurement with calculation of estimated glomerular filtration rate > NRG Serum or plasma glucose measurement (mass/volume) 89 mg/dL 70-105 Serum or plasma calcium measurement (mass/volume) 10.1 mg/dL 8.5-10.1 Serum or plasma total bilirubin measurement (mass/volume) 0.4 mg/dL 0.1-1.0 Serum or plasma alkaline phosphatase measurement (enzymatic activity/volume) 126 U/L 40-136 Serum or plasma aspartate aminotransferase measurement (enzymatic activity/volume) 23 U/L 5-34 Serum or plasma alanine aminotransferase measurement (enzymatic activity/volume) 34 U/L 0-55 Serum or plasma protein measurement (mass/volume) 8.1 g/dL 6.4-8.2 Serum or plasma albumin measurement (mass/volume) 4.4 g/dL 3.2-4.5 CALCIUM CORRECTED 9.8 mg/dL 8.5-10.1 Serum or plasma C reactive protein measurement (mass/volume) - 05/12/18 20:24 Serum or plasma C reactive protein measurement (mass/volume) 0.75 mg/dL 0.00-0.50 Encounters ACCT No. Visit Date/Time Discharge Status Pt. Type Provider Facility Loc./Unit Complaint [id number] 11/23/2018 07:30:00 11/23/2018 23:59:59 CLS Outpatient JANEEN ERNANDEZ APRN [facility] RAD LOW BACK PAIN [id number] 05/12/2018 19:31:00 05/12/2018 22:06:00 DIS Emergency ONEIL BROOKS MD [facility] ER MIGRAINE [id number] 03/31/2018 16:33:00 03/31/2018 23:59:59 CLS Preadmit JANEEN ERNANDEZ DIRECTOR OF STRATEGIC INITIATIVES [facility] SLEEP G47.33 OBSTRUCTIVE SL APNEA [id number] 09/18/2017 08:49:00 09/18/2017 23:59:59 CLS Outpatient GUIDO MENDEZ DIRECTOR OF STRATEGIC INITIATIVES [facility] RAD M54.5 [id number] 07/06/2017 08:01:00 07/06/2017 10:00:00 DIS Emergency TIFFANY SAUCEDO MD [facility] ER WHEN BREATHING, BACK HURTS [id number] 05/22/2017 13:26:00 05/22/2017 23:59:59 CLS Outpatient ALLYSON QUIROZ MD [facility] RAD M17.11 M16.12 [id number] 05/06/2017 11:02:00 05/06/2017 23:59:59 CLS Outpatient GUIDO MENDEZ DIRECTOR OF STRATEGIC INITIATIVES [facility] CARD R94.6 [id number] 04/27/2017 21:39:00 04/27/2017 23:51:00 DIS Emergency NANCY FLYNN MD [facility] ER CHEST PAIN [id number] 04/17/2017 11:52:00 04/17/2017 12:55:00 DIS Emergency NANCY FLYNN MD [facility] ER BACK PAIN [id number] 04/01/2017 08:08:00 04/01/2017 10:45:00 DIS Emergency SANAM FRANK DO [facility] ER DIZZINESS,FATIGUE [id number] 02/18/2017 14:37:00 02/18/2017 18:08:00 DIS Emergency MILYBAR PROGRAM REVIEW DIRECTOR [facility] ER JAW SWOLLEN/STOMACH ACHE [id number] 02/12/2017 14:43:00 02/12/2017 23:59:59 CLS Outpatient INGRID LEE MD [facility] RAD R10.11 RUQ PAIN [id number] 02/12/2017 11:44:00 02/12/2017 13:43:00 DIS Emergency ONEIL BROOKS MD [facility] ER STOMACH ACHE [id number] 02/07/2017 07:20:00 02/07/2017 09:16:00 DIS Emergency SHERYL LANCE, TIFFANY Anthony [facility] ER STOMACH ACHE/DIARRHEA/HEADACHE [id number] 01/23/2017 10:10:00 01/23/2017 12:05:00 DIS Emergency RAFA ALVARENGA DIRECTOR OF STRATEGIC INITIATIVES [facility] ER SWOLLEN NECK/SORE THROAT [id number] 01/20/2017 14:36:00 01/20/2017 23:59:59 CLS Preadmit INGRID LEE MD [facility] RAD R22.1 SWELLING IN LT NECK [id number] 12/19/2016 11:37:00 12/19/2016 14:02:00 DIS Emergency RAFA ALVARENGA DIRECTOR OF STRATEGIC INITIATIVES [facility] ER ABDOMINAL PAIN [id number] 12/07/2016 08:05:00 12/07/2016 10:00:00 DIS Emergency JENNA RAGLAND MD [facility] ER BACK PAIN [id number] 12/04/2016 13:04:00 12/04/2016 23:59:59 CLS Outpatient MOMO GILBERT [facility] LAB M62.82 [id number] 12/02/2016 13:51:00 12/02/2016 19:12:00 DIS Emergency JENNA RAGLAND MD [facility] ER BACK/NECK PAIN [id number] 11/28/2016 20:13:00 11/28/2016 21:20:00 DIS Emergency RAFA ALVARENGA DIRECTOR OF STRATEGIC INITIATIVES [facility] ER CP [id number] 09/12/2016 10:23:00 09/12/2016 12:18:00 DIS Emergency RAFA ALVARENGA DIRECTOR OF STRATEGIC INITIATIVES [facility] ER NECK PAIN/SWELLING [id number] 01/04/2015 08:21:00 01/18/2015 11:58:00 DIS Outpatient PAULINA SALAS MD [facility] REHAB B HIP,LEG AND FOOT PAIN;MUSCLOSKELETAL PAIN;WALKER [id number] 12/29/2014 09:44:00 12/29/2014 23:59:59 CLS Outpatient DHIRAJ LANCE FACC, ELEUTERIO SOLANO CCDS [facility] CARD CP DYSPNEA [id number] 12/26/2014 11:56:00 12/26/2014 14:01:00 DIS Emergency MONIKA DO SANAM K [facility] ER RETAINING FLUID [id number] 09/08/2014 14:21:00 09/08/2014 16:55:00 DIS Emergency TIFFANY SAUCEDO MD [facility] ER DIZZINESS/CHEST PAIN [id number] 06/17/2014 10:36:00 06/17/2014 23:59:59 CLS Outpatient ANN AMOS MD [facility] RAD INCONTINENCE [id number] 06/07/2014 14:01:00 06/07/2014 23:59:59 CLS Outpatient PAULINA SALAS MD [facility] RAD BILAT LEG PAIN, CRAMPING [id number] 06/06/2014 06:28:00 06/06/2014 08:20:00 DIS Emergency ELLYN LANCE, JENNA Perry [facility] ER LEG SPASMS [id number] 11/15/2013 13:01:00 11/17/2013 08:30:00 DIS Inpatient PAULINA SALAS MD [facility] 4TH RT LEG AND CALF PAIN, INTRACTIBLE MIGRAIN [id number] 10/01/2013 15:36:00 10/01/2013 18:25:00 DIS Emergency [id number] 09/26/2013 12:25:00 09/26/2013 15:52:00 DIS Emergency [id number] 09/21/2013 10:31:00 09/21/2013 12:20:00 DIS Emergency [id number] 07/29/2013 11:41:00 07/29/2013 15:00:00 DIS Outpatient [id number] 07/17/2013 15:24:00 07/17/2013 18:06:00 DIS Emergency TIRSO MONDRAGON [facility] [id number] 06/29/2013 10:19:00 06/29/2013 23:59:59 CLS Outpatient [id number] 06/16/2013 17:10:00 06/16/2013 19:10:00 DIS Emergency [id number] 05/27/2013 11:46:00 05/27/2013 15:30:00 DIS Outpatient [id number] 03/17/2013 08:16:00 03/30/2013 11:13:00 DIS Outpatient [id number] 03/24/2013 09:43:00 03/24/2013 11:26:00 DIS Outpatient [id number] 12/25/2012 12:22:00 12/25/2012 23:59:59 CLS Outpatient [id number] 12/24/2012 14:54:00 12/24/2012 23:59:59 CLS Outpatient [id number] 12/07/2016 08:24:00 Document Registration [id number] 12/02/2014 08:26:00 Document Registration [id number] 12/02/2014 08:26:00 Document Registration [id number] 12/02/2014 08:26:00 Document Registration [id number] 12/02/2014 08:26:00 Document Registration [id number] 12/02/2014 08:26:00 Document Registration [id number] 12/02/2014 08:26:00 Document Registration [id number] 12/02/2014 08:26:00 Document Registration [id number] 10/24/2014 05:15:00 Document Registration [id number] 07/30/2012 00:00:00 Document Registration [id number] 05/18/2012 13:40:00 Document Registration [id number] 05/15/2012 11:30:00 Document Registration [id number] 04/01/2012 10:33:00 Document Registration [id number] 09/27/2011 14:15:00 Document Registration [id number] 09/27/2011 11:55:00 Document Registration [id number] 05/17/2010 05:55:00 Document Registration [id number] 05/04/2010 09:40:00 Document Registration [id number] 04/20/2010 11:00:00 Document Registration [id number] 04/18/2010 08:54:00 Document Registration [id number] 02/26/2010 09:22:00 Document Registration [id number] 12/17/2009 11:03:00 Document Registration [id number] 08/14/2009 00:00:00 Document Registration [id number] 06/15/2009 10:51:00 Document Registration
[2018-12-28] MEDS ORDERED: AMIT150T (06:39)
[2018-12-28] MEDS ORDERED: PARO20TA5 (06:39)
[2018-12-28] MEDS ORDERED: LOVA20TA2 (06:39)
[2018-12-28] MEDS ORDERED: GABA-486 (06:39)
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
[2018-12-28] MEDS ORDERED: KETOROLAC 30 MG/ML VIAL IM ONE (07:00)
== END 2018-12-28 07:01 | disposition left against medical advice (07) ==
LOC: EDUNIT# 06:21 → ER 06:25
DX: S50.02XA Contusion of left elbow, initial encounter (principal); S69.91XA Unspecified injury of right wrist, hand and finger(s), initial encounter; M25.561 Pain in right knee; R07.81 Pleurodynia; R40.2142 Coma scale, eyes open, spontaneous, at arrival to emergency department; R40.2252 Coma scale, best verbal response, oriented, at arrival to emergency department; R40.2362 Coma scale, best motor response, obeys commands, at arrival to emergency department; E78.00 Pure hypercholesterolemia, unspecified; I10 Essential (primary) hypertension; G43.909 Migraine, unspecified, not intractable, without status migrainosus; K21.9 Gastro-esophageal reflux disease without esophagitis; M79.7 Fibromyalgia; F41.9 Anxiety disorder, unspecified; F32.9 Major depressive disorder, single episode, unspecified; Z87.19 Personal history of other diseases of the digestive system; Z82.49 Family history of ischemic heart disease and other diseases of the circulatory system; Z98.890 Other specified postprocedural states; Z77.22 Contact with and (suspected) exposure to environmental tobacco smoke (acute) (chronic); Z88.8 Allergy status to other drugs, medicaments and biological substances; Z88.5 Allergy status to narcotic agent; Z87.448 Personal history of other diseases of urinary system; Z90.49 Acquired absence of other specified parts of digestive tract; Z90.710 Acquired absence of both cervix and uterus; Y04.8XXA Assault by other bodily force, initial encounter
CPT/HCPCS: 99283

== ENCOUNTER → 2019-02-12 | Outpatient (CLI) | payer MEDICARE, MEDICAID ==
[~2019-02-12] MED LIST changes: +AMIT150T; +GABA-486; +LOVA20TA2; +PARO20TA5
--- NOTE | 2019-02-12 13:16 | Diagnostic Imaging Report ---
PATIENT HISTORY: 3RD FINGER SWELLING, DECREASE ROM, PAIN. TECHNIQUE: Frontal view of the right hand including the third finger. Oblique and lateral views of the right third finger. COMPARISON: None FINDINGS: No acute fracture or dislocation is seen in the right third finger. Alignment appears normal. Joint spaces are preserved. There is mild soft tissue swelling about the proximal interphalangeal joint. IMPRESSION: Mild soft tissue swelling about the proximal interphalangeal joint of the right third finger with no acute osseous abnormality seen. Dictated by: Dictated on workstation # [id number]
== END ==
LOC: RAD 12:45
PROVIDERS: ATTEND Nurse Practitioner Family
DX: M79.89 Other specified soft tissue disorders (principal)
CPT/HCPCS: 73140

== ENCOUNTER 2019-05-13 16:04 | Emergency (ER) | payer OTHER, MEDICARE, MEDICAID ==
[~2019-05-13] VITALS: Ht 177.8 cm; Wt 97.2 kg
[2019-05-13] MEDS ORDERED: fentaNYL INJECTION 100 MCG/2 ML AMP IM ONE (16:15)
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
[2019-05-13 17:43] VITALS: BP 159/104
== END 2019-05-13 17:42 | disposition home or self-care (01) ==
LOC: EDUNIT# 16:04 → ER 16:14
DX: S33.5XXA Sprain of ligaments of lumbar spine, initial encounter (principal); I10 Essential (primary) hypertension; E78.00 Pure hypercholesterolemia, unspecified; G43.909 Migraine, unspecified, not intractable, without status migrainosus; M79.7 Fibromyalgia; F41.9 Anxiety disorder, unspecified; F32.9 Major depressive disorder, single episode, unspecified; K21.9 Gastro-esophageal reflux disease without esophagitis; F17.290 Nicotine dependence, other tobacco product, uncomplicated; Z90.49 Acquired absence of other specified parts of digestive tract; Z90.710 Acquired absence of both cervix and uterus; Z88.5 Allergy status to narcotic agent; Z88.8 Allergy status to other drugs, medicaments and biological substances; V89.2XXA Person injured in unspecified motor-vehicle accident, traffic, initial encounter
CPT/HCPCS: 72131

== ENCOUNTER 2019-08-08 12:24 | Emergency (ER) | payer MEDICARE, MEDICAID ==
[~2019-08-08] VITALS: Ht 180 cm; Wt 104.7 kg
[2019-08-08] MEDS ORDERED: LACTATED RINGERS 1,000 ML IV ONE (13:06)
[2019-08-08 13:12] LABS: BASOPHILS % (AUTO) 1 % (0-10); EOSINOPHILS # (AUTO) 0.1 10^3/uL (0.0-0.3); EOSINOPHILS % (AUTO) 2 % (0-10); HEMATOCRIT 43 % (35-52); HEMOGLOBIN 14.3 G/DL (11.5-16.0); LYMPHOCYTES # (AUTO) 2.8 X 10^3 (1.0-4.0); LYMPHOCYTES % (AUTO) 39 % (12-44); MEAN CORPUSCULAR HEMOGLOBIN 28 PG (25-34); MEAN CORPUSCULAR HGB CONC 34 G/DL (32-36); MEAN CORPUSCULAR VOLUME 83 FL (80-99); MEAN PLATELET VOLUME 9.4 FL (7.4-10.4); MONOCYTES # (AUTO) 0.6 X 10^3 (0.0-1.0); MONOCYTES % (AUTO) 8 % (0-12); NEUTROPHILS # (AUTO) 3.7 X 10^3 (1.8-7.8); NEUTROPHILS % (AUTO) 51 % (42-75); PLATELET COUNT 369 10^3/uL (130-400); RED CELL DISTRIBUTION WIDTH 16.2 % (10.0-14.5); WHITE BLOOD COUNT 7.2 10^3/uL (4.3-11.0)
--- NOTE | 2019-08-08 13:14 | ED Abdominal Pain ---
General Chief Complaint: Abdominal/GI Problems Stated Complaint: VOMITING Nursing Triage Note: N/V/D X2 DAYS. Sepsis Screen: No Definite Risk Source of Information: Patient, Family Exam Limitations: No Limitations History of Present Illness Date Seen by Provider: Aug 08, 2019 Time Seen by Provider: 12:35 Initial Comments Patient presents to ER by private conveyance with his significant other chief complaint for second day now she's been having some increased vomiting nausea and her Zofran is not working. She has a history of irritable bowel syndrome and uses loperamide as necessary. Typically she can control this with diaper says this is different and the nausea is unusual. No sick contacts. No fevers or chills. All of her abdominal pain 8 out of 10. She's had a hysterectomy, cholecystectomy, appendectomy as well as exploratory lap for cyst removal and other abdominal pains. No trauma. No dysuria. Allergies and Home Medications Allergies Coded Allergies: pregabalin (Verified Adverse Reaction, Intermediate, 12/07/16) Rhabdomyolysis meperidine (Verified Adverse Reaction, Mild, NAUSEA, 12/07/16) morphine (Verified Adverse Reaction, Mild, NAUSEA, 09/13/07) Uncoded Allergies: STEROID PILLS (Allergy, Unknown, 11/15/13) Patient Home Medication List Home Medication List Reviewed: Yes Review of Systems Review of Systems Constitutional: No chills, No diaphoresis EENTM: No Blurred Vision, No Double Vision Respiratory: Denies Cough, Denies Shortness of Air Cardiovascular: Denies Chest Pain, Denies Edema Gastrointestinal: Denies Constipated; Diarrhea, Nausea, Poor Fluid Intake, Vomiting Genitourinary: Denies Burning, Denies Discharge Musculoskeletal: No back pain, No joint pain, No joint swelling Skin: No pruritus, No rash Psychiatric/Neurological: Denies Headache, Denies Numbness, Denies Paresthesia All Other Systems Reviewed Negative Unless Noted: Yes Past Pixvqqd-Hrscwq-Cmrkkw Hx Patient Social History Alcohol Use: Denies Use Recreational Drug Use: No Smoking Status: Current Everyday Smoker Type Used: Cigars 2nd Hand Smoke Exposure: Yes Recent Foreign Travel: No Contact w/Someone Who Travel: No Recent Infectious Disease Expo: No Recent Hopitalizations: No Immunizations Up To Date Tetanus Booster (TDap): Unknown Date of Influenza Vaccine: May 15, 2016 Seasonal Allergies Seasonal Allergies: Yes Past Medical History Surgeries: Yes (TEAR REPAIR AFTER VAG , DX LAP FOR ENDOMETRIOSIS/OVARIAN CYSTS,EGD) Abdominal, Appendectomy, Gallbladder, Hysterectomy, Oophorectomy Respiratory: No Cardiac: Yes High Cholesterol, Hypertension Neurological: Yes Headaches /Migraines 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 Disorders: Yes Female 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 Disorders: 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, Ovarian Cyst MANUAL QA TESTER History: Hysterectomy Sexually Transmitted Disease: No Genitourinary: No Gastrointestinal: Yes (CHRONIC NAUSEA AND ABDOMINAL PAIN ) Gastroesophageal Reflux, Diverticulosis Musculoskeletal: Yes Fibromyalgia, Chronic Back Pain Endocrine: No HEENT: No Cancer: No Psychosocial: Yes Anxiety, Depression Integumentary: No Blood Disorders: No Family Medical History Cancer Cataract Family history: Allergy Family history: Arthritis Family history: Asthma Family history: Breast disease Family history: Diabetes mellitus Family history: Hypertension Family history: Osteoporosis Family history: Thyroid disorder Headache Heart disease Hypercholesterolemia Psychotic disorder Seizure disorder No Family History of: Abdominal aortic aneurysm [place]'s disease Alcoholism Aphasia Cancer of colon Chest pain Congenital heart disease Congestive heart failure Cystic fibrosis Dementia Dysphagia Family history: Alzheimer's disease Family history: Cardiovascular disease Family history: Coronary thrombosis Family history: Gastrointestinal disease Family history: Glaucoma Hearing loss Hereditary disease History of - anemia History of - disorder History of - respiratory disease History of drug abuse Human immunodeficiency virus (HIV) seropositivity Infertile Kidney disease Malignant neoplasm of lung Myocardial infarction Parkinson's disease Prostate cancer Stroke Tuberculosis Visual impairment Physical Exam Vital Signs Vital Signs - First Documented 08/08/19 12:31 Temp 37.0 Pulse 93 Resp 16 B/P (MAP) 166/98 (120) Pulse Ox 98 O2 Delivery Room Air Capillary Refill : Less Than 3 Seconds Height/Weight/BMI Height: 5'11.00" Weight: 220lbs. 0oz. 99.474903pz; 32.00 BMI Method:Stated General Appearance: WD/WN, mild distress HEENT: PERRL/EOMI; No pharynx normal (mildly dry oral mucosa) Neck: full range of motion, normal inspection Respiratory: lungs clear, normal breath sounds, no respiratory distress, no accessory muscle use Cardiovascular: normal peripheral pulses, regular rate, rhythm, no murmur Peripheral Pulses: 2+ Dorsalis Pedis (R), 2+ Left Dors-Pedis (L), 2+ Radial Pulses (R), 2+ Radial Pulses (L) Gastrointestinal: normal bowel sounds, soft, tenderness (all 4 quadrants negati ve for Rodriguez sign, McBurney's point tenderness, Rovsing sign, mesenteric signs, psoas sign) Extremities: normal range of motion, normal inspection, normal capillary refill Neurologic/Psychiatric: alert, normal mood/affect, oriented x 3 Skin: normal color, warm/dry Progress/Results/Core Measures Results/Orders Lab Results Laboratory Tests Test 08/08/19 12:48 08/08/19 12:50 Range/Units White Blood Count 7.2 4.3-11.0 10^3/uL Red Blood Count 5.13 4.35-5.85 10^6/uL Hemoglobin 14.3 11.5-16.0 G/DL Hematocrit 43 35-52 % Mean Corpuscular Volume 83 80-99 FL Mean Corpuscular Hemoglobin 28 25-34 PG Mean Corpuscular Hemoglobin Concent 34 32-36 G/DL Red Cell Distribution Width 16.2 H 10.0-14.5 % Platelet Count 369 130-400 10^3/uL Mean Platelet Volume 9.4 7.4-10.4 FL Neutrophils (%) (Auto) 51 42-75 % Lymphocytes (%) (Auto) 39 12-44 % Monocytes (%) (Auto) 8 0-12 % Eosinophils (%) (Auto) 2 0-10 % Basophils (%) (Auto) 1 0-10 % Neutrophils # (Auto) 3.7 1.8-7.8 X 10^3 Lymphocytes # (Auto) 2.8 1.0-4.0 X 10^3 Monocytes # (Auto) 0.6 0.0-1.0 X 10^3 Eosinophils # (Auto) 0.1 0.0-0.3 10^3/uL Basophils # (Auto) 0.0 0.0-0.1 10^3/uL Sodium Level 140 135-145 MMOL/L Potassium Level 3.8 3.6-5.0 MMOL/L Chloride Level 103 98-107 MMOL/L Carbon Dioxide Level 24 21-32 MMOL/L Anion Gap 13 5-14 MMOL/L Blood Urea Nitrogen 12 7-18 MG/DL Creatinine 0.87 0.60-1.30 MG/DL Estimat Glomerular Filtration Rate > 60 BUN/Creatinine Ratio 14 Glucose Level 91 70-105 MG/DL Calcium Level 9.8 8.5-10.1 MG/DL Corrected Calcium 8.5-10.1 MG/DL Total Bilirubin 0.3 0.1-1.0 MG/DL Aspartate Amino Transf (AST/SGOT) 22 5-34 U/L Alanine Aminotransferase (ALT/SGPT) 30 0-55 U/L Alkaline Phosphatase 128 40-136 U/L Total Protein 8.3 H 6.4-8.2 GM/DL Albumin 4.7 H 3.2-4.5 GM/DL Lipase 10 8-78 U/L Urine Color YELLOW Urine Clarity CLEAR Urine pH 6.0 5-9 Urine Specific [place] 1.025 H 1.016-1.022 Urine Protein NEGATIVE NEGATIVE Urine Glucose (UA) NEGATIVE NEGATIVE Urine Ketones NEGATIVE NEGATIVE Urine Nitrite NEGATIVE NEGATIVE Urine Bilirubin NEGATIVE NEGATIVE Urine Urobilinogen 0.2 < = 1.0 MG/DL Urine Leukocyte Esterase NEGATIVE NEGATIVE Urine RBC (Auto) TRACE-I NEGATIVE Urine RBC NONE /HPF Urine WBC NONE /HPF Urine Squamous Epithelial Cells 10-25 H /HPF Urine Crystals NONE /LPF Urine Bacteria MODERATE H /HPF Urine Casts NONE /LPF Urine Mucus NEGATIVE /LPF Urine Culture Indicated NO My Orders Orders - NANCY FLYNN Urine Bedside (08/08/19 12:32) Ua Culture If Indicated (08/08/19 12:32) Cbc With Automated Diff (08/08/19 13:06) Comprehensive Metabolic Panel (08/08/19 13:06) Lipase (08/08/19 13:06) Fentanyl Injection (Sublimaze Injection (08/08/19 13:15) Ondansetron Injection (Zofran Injectio (08/08/19 13:15) Ed Iv/Invasive Line Start (08/08/19 13:06) Lactated Ringers (Lr 1000 Ml Iv Solution (08/08/19 13:06) Pantoprazole Injection (Protonix Injecti (08/08/19 13:15) Acute Abd Series (08/08/19 13:08) Medications Given in ED Current Medications Medications Dose Ordered Sig/Cali Route Start Time Stop Time Status Last Admin Dose Admin Fentanyl Citrate 25 mcg ONCE ONCE IVP 08/08/19 13:15 08/08/19 13:16 DC 08/08/19 13:24 25 MCG Lactated Ringer's 1,000 ml @ 0 mls/hr Q0M ONCE IV 08/08/19 13:06 08/08/19 13:09 DC 08/08/19 13:24 0 MLS/HR Ondansetron HCl 8 mg ONCE ONCE IVP 08/08/19 13:15 08/08/19 13:16 DC 08/08/19 13:24 8 MG Pantoprazole 40 mg ONCE ONCE IV 08/08/19 13:15 08/08/19 13:16 DC 08/08/19 13:24 40 MG Vital Signs/I&O 08/08/19 12:31 Temp 37.0 Pulse 93 Resp 16 B/P (MAP) 166/98 (120) Pulse Ox 98 O2 Delivery Room Air Blood Pressure Mean: 120 Progress Progress Note : Time: 13:57 Progress Note Blood work unremarkable. Urinalysis pending. Acute abdomen series unremarkable. We'll give her a little opiates for her general discomfort she is much more comfortable. Her nausea is under control. Liter fluids for her dehydration. Viral gastroenteritis and colitis on top of her irritable bowel syndrome. Diagnostic Imaging Diagonstic Imaging: Xray Plain Films/CT/US/NM/MRI: abdomen (acute abdominal series) Comments NAME: BAL[facility]WARDS [facility] REC#: [id number] PT STATUS: REG ER : 1980 PHYSICIAN: NANCY FLYNN MD ADMIT DATE: 08/08/19/ER Draft Date of Exam:08/08/19 ACUTE ABD SERIES INDICATION: Nausea, vomiting and diarrhea for 2 days. TIME OF EXAM 1:38 PM The heart size is normal. Lungs are clear. No free air is identified. There are surgical clips in the gallbladder fossa. Bowel gas pattern is nonobstructed. No pathologic calcifications are seen. IMPRESSION: No acute abnormality is detected. Dictated on workstation # [id number] Dict: 08/08/19 1343 Trans: 08/08/19 1348 [facility] [id number] Interpreted by: JOSE LINO MD Electronically signed by: Reviewed: Reviewed by Me Departure Impression Primary Impression: Gastroenteritis and colitis, viral Additional Impression: History of irritable bowel syndrome Disposition: 01 HOME, SELF-CARE Condition: Improved Departure-Patient Inst. Decision time for Depature: 14:10 Referrals: ALLYSON QUIROZ MD (PCP/Family) Primary Care Physician Patient Instructions: Viral Gastroenteritis, Adult (DC) Add. Discharge Instructions: Drink lots of fluids. Sports drinks are encouraged. Use the loperamide 2 tablets first followed by one tablet every 4 hours if you're still having watery stools. Zofran 1 tablet every 4 hours as needed for nausea. Phenergan 1 tablet every 6 hours as needed for nausea. Continue to use the Lomotil as prescribed. All discharge instructions reviewed with patient and/or family. Voiced understanding. Scripts Ondansetron (Ondansetron Odt) 4 Mg Tab.rapdis 4 MG PO Q6H PRN for NAUSEA/VOMITING, #20 TAB 0 Refills Prov: NANCY FLYNN 08/08/19 Promethazine HCl (Promethazine Tablet) 25 Mg Tablet 25 MG PO Q6H PRN for NAUSEA/VOMITING, #20 TAB 0 Refills Prov: NANCY FLYNN 08/08/19 Work/School Note: Work Release Form Date Seen in the Emergency Department: Aug 08, 2019 Return to Work: Aug 10, 2019 Restrictions: No Restrictions NANCY FLYNN Aug 08, 2019 13:14
[2019-08-08] MEDS ORDERED: ONDANSETRON 4 MG/2 ML (SDV) Z0FRAN IVP ONE (13:15)
[2019-08-08] MEDS ORDERED: fentaNYL INJECTION 100 MCG/2 ML AMP IVP ONE (13:15)
[2019-08-08] MEDS ORDERED: PANTOPRAZOLE 40 MG (PROTONIX) VIAL IV ONE (13:15)
[2019-08-08 13:29] LABS: ALANINE AMINOTRANSFERASE 30 U/L (0-55); ALBUMIN 4.7 GM/DL (3.2-4.5); ALKALINE PHOSPHATASE 128 U/L (40-136); BILIRUBIN,TOTAL 0.3 MG/DL (0.1-1.0); BUN/CREATININE RATIO 14; CALCIUM 9.8 MG/DL (8.5-10.1); CARBON DIOXIDE 24 MMOL/L (21-32); CHLORIDE 103 MMOL/L (98-107); CREATININE SERUM 0.87 MG/DL (0.60-1.30); GFR ESTIMATED > 60; GLUCOSE 91 MG/DL (70-105); LIPASE 10 U/L (8-78); POTASSIUM 3.8 MMOL/L (3.6-5.0); SODIUM 140 MMOL/L (135-145); TOTAL PROTEIN 8.3 GM/DL (6.4-8.2)
[2019-08-08 13:45] LABS: BILIRUBIN,URINE NEGATIVE (NEGATIVE); CLARITY,URINE CLEAR; COLOR,URINE YELLOW; GLUCOSE, URINE (UA) NEGATIVE (NEGATIVE); KETONES,URINE NEGATIVE (NEGATIVE); LEUKOCYTE ESTERASE ,URINE NEGATIVE (NEGATIVE); NITRITE,URINE NEGATIVE (NEGATIVE); PROTEIN,URINE NEGATIVE (NEGATIVE)
--- NOTE | 2019-08-08 13:49 | Diagnostic Imaging Report ---
INDICATION: Nausea, vomiting and diarrhea for 2 days. TIME OF EXAM 1:38 PM The heart size is normal. Lungs are clear. No free air is identified. There are surgical clips in the gallbladder fossa. Bowel gas pattern is nonobstructed. No pathologic calcifications are seen. IMPRESSION: No acute abnormality is detected. Dictated by: Dictated on workstation # [id number]
[2019-08-08 13:57] LABS: BACTERIA,URINE MODERATE /HPF
[2019-08-08] MEDS ORDERED: PROM25TA14 PO (14:09)
[2019-08-08] MEDS ORDERED: ONDA4TAB11 PO (14:09)
[2019-08-08] MEDS ORDERED: PROMETHAZINE INJ 25 MG/ML (PHENERGAN) AMP IVP ONE (14:15)
[2019-08-08 14:40] VITALS: BP 152/88
== END 2019-08-08 14:40 | disposition home or self-care (01) ==
LOC: EDUNIT# 12:24 → ER 12:25
DX: A08.4 Viral intestinal infection, unspecified (principal); K58.9 Irritable bowel syndrome, unspecified; I10 Essential (primary) hypertension; E78.00 Pure hypercholesterolemia, unspecified; G43.909 Migraine, unspecified, not intractable, without status migrainosus; F41.9 Anxiety disorder, unspecified; F32.9 Major depressive disorder, single episode, unspecified; K21.9 Gastro-esophageal reflux disease without esophagitis; F17.290 Nicotine dependence, other tobacco product, uncomplicated; Z90.710 Acquired absence of both cervix and uterus; Z90.89 Acquired absence of other organs; Z90.49 Acquired absence of other specified parts of digestive tract; Z88.5 Allergy status to narcotic agent; Z88.8 Allergy status to other drugs, medicaments and biological substances
CPT/HCPCS: 36415; 74022; 80053; 81000; 83690; 85025; 96361; 96374; 96375

== ENCOUNTER 2019-09-07 10:52 | Outpatient (CLI) | payer MEDICARE, MEDICAID ==
[~2019-09-07] VITALS: Ht 177.8 cm; Wt 107.3 kg
[~2019-09-07 10:52] MED LIST changes: +ONDA4TAB11 PO; +PROM25TA14 PO
[2019-09-07 11:23] LABS: HEMOGLOBIN 13.1 G/DL (11.5-16.0); RED CELL DISTRIBUTION WIDTH 15.5 % (10.0-14.5); WHITE BLOOD COUNT 7.1 10^3/uL (4.3-11.0)
[2019-09-07 11:41] LABS: ALANINE AMINOTRANSFERASE 32 U/L (0-55); ALBUMIN 3.9 GM/DL (3.2-4.5); ALKALINE PHOSPHATASE 114 U/L (40-136); BILIRUBIN,TOTAL 0.2 MG/DL (0.1-1.0); BUN/CREATININE RATIO 22; CALCIUM 9.2 MG/DL (8.5-10.1); CARBON DIOXIDE 26 MMOL/L (21-32); CHLORIDE 105 MMOL/L (98-107); CREATININE SERUM 0.78 MG/DL (0.60-1.30); GFR ESTIMATED > 60; GLUCOSE 91 MG/DL (70-105); POTASSIUM 3.9 MMOL/L (3.6-5.0); SODIUM 140 MMOL/L (135-145); TOTAL PROTEIN 7.3 GM/DL (6.4-8.2)
[2019-09-07] MEDS ORDERED: NS IV 1000 ML 1,000 ML IV ONE (12:15)
--- NOTE | 2019-09-07 12:25 | Diagnostic Imaging Report ---
EXAMINATION: CT Abdomen Pelvis without contrast. TECHNIQUE: Multiple contiguous axial images were obtained through the abdomen and pelvis without the use of intravenous contrast. All CT scans use one or more of the following dose optimizing techniques: automated exposure control, MA and/or KvP adjustment based on a patient size and exam type, or iterative reconstruction. HISTORY: Abdominal pain. COMPARISON: 09/21/2013 FINDINGS: Limited views of the lower thorax are unremarkable. The liver is normal without focal lesion. There is no biliary ductal dilation. Gallbladder is absent. Pancreas is normal. Spleen is normal. Adrenal glands are normal. The kidneys are normal. There is no hydronephrosis. Urinary bladder is normal. There are no dilated loops of large or small bowel. No obstruction or inflammation. No free fluid or air. No abdominal or pelvic lymphadenopathy. Aorta is normal in caliber without aneurysm. There are no suspicious osseous lesions. IMPRESSION: 1. No acute abnormality in the abdomen or pelvis. Dictated by: Dictated on workstation # [id number]
[2019-09-07 12:40] VITALS: BP 155/99
== END 2019-09-07 13:28 | disposition home or self-care (01) ==
LOC: RAD 10:52
DX: E86.0 Dehydration (principal); R10.0 Acute abdomen
CPT/HCPCS: 36415; 74176; 80053; 84443; 85027; 96360

== ENCOUNTER 2020-02-06 10:40 | Emergency (ER) | payer MEDICARE, MEDICAID ==
[~2020-02-06] VITALS: Ht 180 cm; Wt 112.0 kg
--- OUTSIDE RECORDS SUMMARY | 2020-02-06 10:48 | XMS REPORT | Continuity of Care Document ---
Author Organization Unknown Address Unknown Phone Unavailable Allergies Active Description Code Type Severity Reaction Onset Reported/Identified Relationship to Patient Clinical Status Yes morphine [id number] Drug Allergy Mild NAUSEA 09/13/2007 Yes STEROID PILLS STEROID PILLS Unknown N/A 11/15/2013 Yes pregabalin [id number] Drug Allerg y Moderate N/A 12/07/2016 Yes meperidine [id number] Drug Allerg y Mild NAUSEA 12/07/2016 Medications There is no data. Problems Date Dx Coded Attending Type Code Diagnosis Diagnosed By 08/13/2009 Ot 251.2 08/13/2009 Ot 787.01 08/13/2009 Ot 787.91 08/13/2009 Ot 789.00 12/17/2009 Ot 558.9 12/17/2009 Ot 787.91 04/18/2010 Ot 625.3 04/18/2010 Ot 626.2 05/17/2010 Ot 617.0 05/17/2010 Ot 617.3 05/17/2010 Ot 620.2 05/17/2010 Ot 621.6 05/17/2010 Ot 625.9 05/17/2010 Ot 626.2 09/27/2011 Ot 789.01 ABD OMINAL PAIN, RIGHT UPPER QUADRANT 05/16/2012 Ot 276.51 DEH YDRATION 05/16/2012 Ot 309.81 POS TTRAUMATIC STRESS DISORDER 05/16/2012 Ot 338.19 OTH ER ACUTE PAIN 05/16/2012 Ot 338.29 OTH ER CHRONIC PAIN 05/16/2012 Ot 784.0 HEAD ACHE 05/16/2012 Ot 787.03 VOM ITING ALONE 05/19/2012 Ot 780.79 OTH MALAISE FATIGUE 05/19/2012 Ot 784.0 HEAD ACHE 05/19/2012 Ot 787.01 NU SEA WITH VOMITING 07/17/2013 TIRSO MONDRAGON Ot 787.02 07/17/2013 TIRSO MONDRAGON Ot 789.00 11/17/2013 PAULINA SALAS MD Ot 346.9 1 MGRN UNSPECIFIED W INTRACTABLE MGRN W/O 11/17/2013 PAULINA SALAS MD Ot 729.5 PAIN IN LIMB 11/17/2013 PAULINA SALAS MD Ot 784.5 9 OTHER SPEECH DISTURBANCE 06/06/2014 JENNA RAGLAND MD Ot 459.89 CIRCULATORY DISEASE NEC 06/06/2014 JENNA RAGLAND MD Ot 599.0 URIN TRACT INFECTION NOS 06/06/2014 JENNA RAGLAND MD Ot 729.82 CRAMP IN LIMB 07/06/2014 PAULINA SALAS MD Ot 305.1 07/06/2014 PAULINA SALAS MD Ot 440.2 0 07/06/2014 PAULINA SALAS MD Ot 729.5 09/08/2014 TIFFANY SAUCEDO MD Ot 564.00 UNSPEC CONSTIPATION 09/08/2014 TIFFANY SAUCEDO MD Ot 599 .0 URIN TRACT INFECTION NOS 09/08/2014 TIFFANY SAUCEDO MD Ot 789.07 ABDOMINAL PAIN, GENERALIZED 10/24/2014 Ot 729.5 PAIN IN LIMB 10/24/[address] PAIN NOS 11/17/2014 DANDRE LANCE, ANN Akins Ot 788.3 0 11/25/2014 ANN AMOS MD Ot 788.3 0 11/30/2014 ANN AMOS MD Ot 788.3 0 12/02/2014 PAULINA SALAS MD Ot 719.4 5 12/02/2014 PAULINA SALAS MD Ot 729.1 12/02/2014 PAULINA SALAS MD Ot 729.5 12/02/2014 PAULINA SALAS MD Ot 782.3 12/02/2014 PAULINA SALAS MD Ot 784.0 12/02/2014 PAULINA SALAS MD Ot [...] 12/02/2014 Ot 789.59 12/02/2014 MARITZA LANCE, PAULINA J Ot 719.4 5 12/02/2014 MARITZA LANCE, PAULINA J Ot 729.1 12/02/2014 MARITZA LANCE, PAULINA J Ot 729.5 12/02/2014 MARITZA LANCE, PAULINA J Ot 782.3 12/02/2014 MARITZA LANCE, [facility] Ot 784.0 12/02/2014 MARITZA LANCE, PAULINA J Ot V57.1 12/02/2014 MARITZA LANCE, PAULINA J Ot 719.4 5 12/02/2014 MARITZA LANCE, PAULINA J Ot 729.1 12/02/2014 MARITZA LANCE, PAULINA J Ot 729.5 12/02/2014 MARITZA LANCE, PAULINA J Ot 782.3 12/02/2014 MARITZA LANCE, PAULINA J Ot 784.0 12/02/2014 MARITZA LANCE, PAULINA J Ot V57.1 12/02/2014 MARITZA LANCE, PAULINA J Ot 719.4 5 12/02/2014 MARITZA LANCE, PAULINA J Ot 729.1 12/02/2014 MARITZA LANCE, PAULINA Ashvin Ot 729.5 12/02/2014 MARITZA LANCE, PAULINA Lock Ot 782.3 12/02/2014 MARITZA LANCE, PAULINA J Ot 784.0 12/02/2014 MARITZA LANCE, PAULINA J Ot V57.1 12/02/2014 MARITZA LANCE, PAULINA J Ot 719.4 5 12/02/2014 MARITZA LANCE, PAULINA J Ot 729.1 12/02/2014 MARITZA LANCE, PAULINA J Ot 729.5 12/02/2014 MARITZA LANCE, PAULINA J Ot 782.3 12/02/2014 MARITZA LANCE, PAULINA J Ot 784.0 12/02/2014 MARITZA LANCE, PAULINA Lock Ot V57.1 12/02/2014 DANDRE LANCE, ANN Akins Ot 788.3 0 12/02/2014 DANDRE LANCE, ANN A Ot 788.3 0 12/02/2014 DANDRE LANCE, ANN A Ot 788.3 0 12/02/2014 MARITZA LANCE, PAULINA J Ot 305.1 12/02/2014 MARITZA LANCE, PAULINA J Ot 440.2 0 12/02/2014 MARITZA LANCE, PAULINA J Ot 729.5 12/02/2014 MARITZA LANCE, PAULINA Lock Ot 305.1 12/02/2014 MARITZA LANCE, PAULINA J Ot 440.2 0 12/02/2014 MARITZA LANCE, PAULINA J Ot 729.5 12/09/2014 MARITZA LANCE, PAULINA J Ot 719.4 5 12/09/2014 MARITZA LANCE, PAULINA J Ot 729.1 12/09/2014 MARITZA LANCE, PAULINA J Ot 729.5 12/09/2014 MARITZA LANCE, PAULINA J Ot 782.3 12/09/2014 MARITZA LANCE, PAULINA J Ot 784.0 12/09/2014 MARITZA LANCE, PAULINA J Ot V57.1 12/09/2014 MARITZA LANCE, PAULINA J Ot 719.4 5 12/09/2014 MARITZA LANCE, PAULINA J Ot 729.1 12/09/2014 MARITZA LANCE, PAULINA J Ot 729.5 12/09/2014 MARITZA LANCE, PAULINA J Ot 782.3 12/09/2014 MARITZA LANCE, PAULINA J Ot 784.0 12/09/2014 MARITZA LANCE, PAULINA J Ot V57.1 12/26/2014 TRISHA FRANK DOA Raj Ot 276.69 OTHER FLUID OVERLOAD 12/26/2014 TRISHA FRANK DOA Raj Ot V58.69 OTH MED,LT,CURRENT USE 12/27/2014 MARITZA LANCE, PAULINA Lock Ot 719.4 5 12/27/2014 MARITZA LANCE, PAULINA J Ot 729.1 12/27/2014 MARITZA LANCE, PAULINA J Ot 729.5 12/27/2014 MARITZA LANCE, PAULINA J Ot 782.3 12/27/2014 MARITZA LANCE, PAULINA J Ot 784.0 12/27/2014 MARITZA LANCE, PAULINA J Ot V57.1 01/04/2015 DHIRAJ LANCE FACC, ALI FACP CCDS Ot 305.1 01/04/2015 [...] CCDS Ot 786.59 01/09/2015 MARITZA LANCE, PAULINA Lock Ot 719.4 5 01/09/2015 MARITZA LANCE, PAULINA J Ot 729.1 01/09/2015 MARITZA LANCE, PAULINA J Ot 729.5 01/09/2015 MARITZA LANCE, PAULINA J Ot 782.3 01/09/2015 MARITZA LANCE, PAULINA J Ot 784.0 01/09/2015 MARITZA LANCE, PAULINA J Ot V57.1 01/09/2015 MARITZA LANCE, PAULINA J Ot 719.4 5 01/09/2015 MARITZA LANCE, PAULINA J Ot 729.1 01/09/2015 MARITZA LANCE, PAULINA J Ot 729.5 01/09/2015 MARITZA LANCE, PAULINA J Ot 782.3 01/09/2015 MARITZA LANCE, PAULINA J Ot 784.0 01/09/2015 MARITZA LANCE, PAULINA Lock Ot V57.1 01/09/2015 MARITZA LANCE, PAULINA Lock Ot 719.4 5 01/09/2015 MARITZA LANCE, PAULINA Lock Ot 729.1 01/09/2015 MARITZA LANCE, PAULINA Lock Ot 729.5 01/09/2015 MARITZA LANCE, PAULINA Lock Ot 782.3 01/09/2015 MARITZA LANCE, PAULINA Lock Ot 784.0 01/09/2015 MARITZA LANCE, PAULINA Lock Ot V57.1 01/09/2015 MARITZA LANCE, PAULINA Lock Ot 719.4 5 01/09/2015 MARITZA LANCE, PAULINA Lock Ot 729.1 01/09/2015 MARITZA LANCE, PAULINA Lock Ot 729.5 01/09/2015 MARITZA LANCE, PAULINA Lock Ot 782.3 01/09/2015 MARITZA LANCE, PAULINA Lock Ot 784.0 01/09/2015 MARITZA LANCE, PAULINA Lock Ot V57.1 01/11/2015 DHIRAJ LANCE FACC, ALI [...] 786.59 01/18/2015 MARITZA LANCE, PAULINA Lock Ot 719.4 5 JOINT PAIN-PELVIS 01/18/2015 PAULINA SALAS MD Ot 729.1 MYALGIA AND MYOSITIS NOS 01/18/2015 PAULINA SALAS MD Ot 729.5 PAIN IN LIMB 01/18/2015 PAULINA SALAS MD Ot 782.3 EDEMA 01/18/2015 PAULINA SALAS MD Ot 784.0 HEADACHE 01/18/2015 PAULINA SALAS MD Ot V57.1 PHYSICAL THERAPY NEC 02/01/2015 DHIRAJ LANCE FACC, ALI FACP CCDS Ot 305.1 02/01/2015 DHIRAJ LANCE FACC, ALI FACP CCDS Ot 729.1 02/01/2015 DHIARJ LANCE FACAl, ALI FACP CCDS Ot 729.81 02/01/2015 DHIRAJ [...] 11/30/2015 Ot 724.2 LUMBAGO 09/12/2016 Ot 789.01 ABD OMINAL PAIN, RIGHT UPPER QUADRANT 09/12/2016 Ot 789.59 OTH ER ASCITES 09/12/2016 PAULINA SALAS MD Ot 305.1 TOBACCO USE DISORDER 09/12/2016 PAULINA SALAS MD Ot 440.2 0 ATHEROSCLEROSIS NUNAM IQUA ARTERIES EXTREMIT 09/12/2016 PAULINA SALAS MD Ot 729.5 PAIN IN LIMB 09/12/2016 DANDRE LANCE, ANN Akins Ot 788.3 0 UNSPECIFIED URINARY INCONTINENCE 09/12/2016 DHIRAJ LANCE FACC, ALI FACP CCDS Ot 305.1 TOBACCO USE DISORDER 09/12/2016 DHIRAJ LANCE FACC, ALI FACP CCDS Ot 729.1 MYALGIA AND MYOSITIS NOS 09/12/2016 DHIRAJ LANCE FACC, ALI FACP CCDS Ot 729.81 SWELLING OF LIMB 09/12/2016 DHIRAJ LANCE FACC, ALI FACP CCDS Ot 780.79 OTH MALAISE FATIGUE 09/12/2016 DHIRAJ LANCE FACC, ELEUTERIO FACP CCDS Ot 786.09 RESPIRATORY ABNORM NEC 09/12/2016 DHIRAJ LANCE FACC, ELEUTERIO FACP CCDS Ot 786.59 CHEST PAIN NEC 09/12/2016 RAFA ALVARENGA RED HAT LINUX ENGINEER Ot G89.29 OTHER CHRONIC PAIN 09/12/2016 RAFA ALVARENGA [employer] HAT LINUX ENGINEER Ot M43 .6 TORTICOLLIS 09/12/2016 RAFA ALVARENGA [employer] HAT LINUX ENGINEER Ot M54 .2 CERVICALGIA 09/12/2016 RAFA ALVARENGA [employer] HAT LINUX ENGINEER Ot M79 .7 FIBROMYALGIA 09/13/2016 RAFA ALVARENGA [employer] HAT LINUX ENGINEER Ot G89.29 OTHER CHRONIC PAIN 09/13/2016 RAFA ALVARENGA [employer] HAT LINUX ENGINEER Ot M43 .6 TORTICOLLIS 09/13/2016 RAFA ALVARENGA [employer] HAT LINUX ENGINEER Ot M54 .2 CERVICALGIA 09/13/2016 RAFA ALVARENGA [employer] HAT LINUX ENGINEER Ot M79 .7 FIBROMYALGIA 09/19/2016 RAFA ALVARENGA [employer] HAT LINUX ENGINEER Ot G89.29 OTHER CHRONIC PAIN 09/19/2016 RAFA ALVARENGA [employer] HAT LINUX ENGINEER Ot M43 .6 TORTICOLLIS 09/19/2016 RAFA ALVARENGA [employer] HAT LINUX ENGINEER Ot M54 .2 CERVICALGIA 09/19/2016 RAFA ALVARENGA [employer] HAT LINUX ENGINEER Ot M79 .7 FIBROMYALGIA 11/28/2016 DANDRE LANCE, ANN Akins Ot 788.3 0 UNSPECIFIED URINARY INCONTINENCE 11/28/2016 DHIRAJ LANCE FACC, ELEUTERIO FACP CCDS Ot 305.1 TOBACCO USE DISORDER 11/28/2016 DHIRAJ LANCE FACC, ALI FACP CCDS Ot 729.1 MYALGIA AND MYOSITIS NOS 11/28/2016 DHIRAJ LANCE FACC, ALI FACP CCDS Ot 729.81 SWELLING OF LIMB 11/28/2016 DHIRAJ LANCE FACC, ALI FACP CCDS Ot 780.79 OTH MALAISE FATIGUE 11/28/2016 DHIRAJ LANCE FACC, ELEUTERIO FACP CCDS Ot 786.09 RESPIRATORY ABNORM NEC 11/28/2016 DHIRAJ LANCE FACC, ALI FACP CCDS Ot 786.59 CHEST PAIN NEC 11/28/2016 RAFA ALVARENGA [employer] HAT LINUX ENGINEER Ot F17.210 NICOTINE DEPENDENCE, CIGARETTES, UNCOMPL 11/28/2016 RAFA ALVARENGA [employer] HAT LINUX ENGINEER Ot R07 .9 CHEST PAIN, UNSPECIFIED 11/28/2016 RAFA ALVARENGA [employer] HAT LINUX ENGINEER Ot Z79.899 OTHER CINDER BLOCK MAKER (CURRENT) DRUG THERAPY 11/29/2016 RAFA ALVARENGA [employer] HAT LINUX ENGINEER Ot F17.210 NICOTINE DEPENDENCE, CIGARETTES, UNCOMPL 11/29/2016 RAFA ALVARENGA [employer] HAT LINUX ENGINEER Ot R07 .9 CHEST PAIN, UNSPECIFIED 11/29/2016 RAFA ALVARENGA RED HAT LINUX ENGINEER Ot Z79.899 OTHER CINDER BLOCK MAKER (CURRENT) DRUG THERAPY 11/30/2016 RAFA ALVARENGA [employer] HAT LINUX ENGINEER Ot F17.210 NICOTINE DEPENDENCE, CIGARETTES, UNCOMPL 11/30/2016 RAFA ALVARENGA [employer] HAT LINUX ENGINEER Ot R07 .9 CHEST PAIN, UNSPECIFIED 11/30/2016 RAFA ALVARENGA RED HAT LINUX ENGINEER Ot Z79.899 OTHER HALFWAY (CURRENT) DRUG THERAPY 12/02/2016 DANDRE LANCE, ANN Akins Ot 788.3 0 UNSPECIFIED URINARY INCONTINENCE 12/02/2016 DHIRAJ LANCE FAC, ALI FACP CCDS Ot 305.1 TOBACCO USE DISORDER 12/02/2016 DHIRAJ LANCE FAC, ALI FACP CCDS Ot 729.1 MYALGIA AND MYOSITIS NOS 12/02/2016 DHIRAJ LANCE FAC, ALI FACP CCDS Ot 729.81 SWELLING OF LIMB 12/02/2016 DHIRAJ LANCE [facility], ALI FACP CCDS Ot 780.79 OTH MALAISE FATIGUE 12/02/2016 DHIRAJ LANCE FAC, ALI FACP CCDS Ot 786.09 RESPIRATORY ABNORM NEC 12/02/2016 DHIRAJ WADDELL, ALI FACP CCDS Ot 786.59 CHEST PAIN NEC 12/02/2016 ELLYN LANCE, JENNA Perry Ot F17.210 NICOTINE DEPENDENCE, CIGARETTES, UNCOMPL 12/02/2016 JENNA RAGLAND MD Ot M54.2 CERVICALGIA 12/02/2016 JENNA RAGLAND MD Ot M62.82 RHABDOMYOLYSIS 12/02/2016 JENNA RAGLAND MD Ot M79.1 MYALGIA 12/04/2016 ANN AMOS MD Ot 788.3 0 UNSPECIFIED URINARY INCONTINENCE 12/04/2016 DHIRAJ WADDELL, ALI FACP CCDS Ot 305.1 TOBACCO USE DISORDER 12/04/2016 DHIRAJ LANCE FACC, ALI FACP CCDS Ot 729.1 MYALGIA AND MYOSITIS NOS 12/04/2016 DHIRAJ LANCE FAC, ALI FACP CCDS Ot 729.81 SWELLING OF LIMB 12/04/2016 DHIRAJ LANCE FAC, ALI FACP CCDS Ot 780.79 OTH MALAISE FATIGUE 12/04/2016 DHIRAJ LANCE FAC, ALI FACP CCDS Ot 786.09 RESPIRATORY ABNORM NEC 12/04/2016 DHIRAJ LANCE FAC, ALI FACP CCDS Ot 786.59 CHEST PAIN NEC 12/07/2016 Ot 276.51 DEH YDRATION 12/07/2016 Ot 780.79 OTH MALAISE FATIGUE 12/07/2016 Ot 787.91 ELICEO RRHEA 12/07/2016 JENNA RAGLAND MD Ot F17.210 NICOTINE DEPENDENCE, CIGARETTES, UNCOMPL 12/07/2016 JENNA RAGLAND MD Ot M54.5 LOW BACK PAIN 12/07/2016 JENNA RAGLAND MD Ot M62.82 RHABDOMYOLYSIS 12/07/2016 JENNA RAGLAND MD Ot M79.7 FIBROMYALGIA 12/07/2016 JENNA RAGLAND MD Ot R11.2 NAUSEA WITH VOMITING, UNSPECIFIED 12/07/2016 JENNA RAGLAND MD Ot Z79.899 OTHER HALFWAY (CURRENT) DRUG THERAPY 12/07/2016 Ot 276.51 DEH YDRATION 12/07/2016 Ot 780.79 OTH MALAISE FATIGUE 12/07/2016 Ot 787.91 ELICEO RRHEA 12/09/2016 JENNA RAGLAND MD Ot F17.210 NICOTINE DEPENDENCE, CIGARETTES, UNCOMPL 12/09/2016 JENNA RAGLAND MD Ot M54.5 LOW BACK PAIN 12/09/2016 JENNA RAGLAND MD Ot M62.82 RHABDOMYOLYSIS 12/09/2016 JENNA RAGLAND MD Ot M79.7 FIBROMYALGIA 12/09/2016 JENNA RAGLAND MD T Ot R11.2 NAUSEA WITH VOMITING, UNSPECIFIED 12/09/2016 JENNA RAGLAND MD Ot Z79.899 OTHER HALFWAY (CURRENT) DRUG THERAPY 12/11/2016 BRUEGGEMANN MD, JENNA T Ot F17.210 NICOTINE DEPENDENCE, CIGARETTES, UNCOMPL 12/11/2016 ELLYN LANCE, JENNA Perry Ot M54.5 LOW BACK PAIN 12/11/2016 ELLYN LANCE, JENNA Perry Ot M62.82 RHABDOMYOLYSIS 12/11/2016 ELLYN LANCE, JENNA Perry Ot M79.7 FIBROMYALGIA 12/11/2016 JENNA RAGLAND MD Ot R11.2 NAUSEA WITH VOMITING, UNSPECIFIED 12/11/2016 JENNA RAGLAND MD Ot Z79.899 OTHER CINDER BLOCK MAKER (CURRENT) DRUG THERAPY 12/19/2016 RAFA ALVARENGA [employer] HAT LINUX ENGINEER Ot F17.210 NICOTINE DEPENDENCE, CIGARETTES, UNCOMPL 12/19/2016 RAFA ALVARENGA [employer] HAT LINUX ENGINEER Ot G89.29 OTHER CHRONIC PAIN 12/19/2016 RAFA ALVARENGA [employer] HAT LINUX ENGINEER Ot K58 .0 IRRITABLE BOWEL SYNDROME WITH DIARRHEA 12/19/2016 RAFA ALVARENGA [employer] HAT LINUX ENGINEER Ot R11 .0 NAUSEA 12/19/2016 RAFA ALVARENGA [employer] HAT LINUX ENGINEER Ot Z79.899 OTHER CINDER BLOCK MAKER (CURRENT) DRUG THERAPY 12/25/2016 RAFA ALVARENGA [employer] HAT LINUX ENGINEER Ot F17.210 NICOTINE DEPENDENCE, CIGARETTES, UNCOMPL 12/25/2016 RAFA ALVARENGA RED HAT LINUX ENGINEER Ot G89.29 OTHER CHRONIC PAIN 12/25/2016 RAFA ALVARENGA [employer] HAT LINUX ENGINEER Ot K58 .0 IRRITABLE BOWEL SYNDROME WITH DIARRHEA 12/25/2016 RAFA ALVARENGA [employer] HAT LINUX ENGINEER Ot R11 .0 NAUSEA 12/25/2016 RAFA ALVARENGA [employer] HAT LINUX ENGINEER Ot Z79.899 OTHER HALFWAY (CURRENT) DRUG THERAPY 12/27/2016 MOMO GILBERT Ot M62.82 RHABDOMYOLYSIS 01/23/2017 RAFA ALVARENGA [employer] HAT LINUX ENGINEER Ot F17.210 NICOTINE DEPENDENCE, CIGARETTES, UNCOMPL 01/23/2017 RAFA ALVARENGA [employer] HAT LINUX ENGINEER Ot R22 .1 LOCALIZED SWELLING, MASS AND LUMP, NECK 01/23/2017 Ot 789.01 ABD OMINAL PAIN, RIGHT UPPER QUADRANT 01/23/2017 Ot 789.59 OTH ER ASCITES 01/23/2017 MARITZA LANCE, PAULINA Lock Ot 305.1 TOBACCO USE DISORDER 01/23/2017 MARITZA LANCE, PAULINA Lock Ot 440.2 0 ATHEROSCLEROSIS [place]A ARTERIES EXTREMIT 01/23/2017 PAULINA SALAS MD Ot 729.5 PAIN IN LIMB 01/23/2017 DANDRE LANCE, ANN Akins Ot 788.3 0 UNSPECIFIED URINARY INCONTINENCE 01/23/2017 DHIRAJ LANCE [facility], ALI FACP CCDS Ot 305.1 TOBACCO USE DISORDER 01/23/2017 DHIRAJ LANCE [facility], ALI FACP CCDS Ot 729.1 MYALGIA AND MYOSITIS NOS 01/23/2017 DHIRAJ LANCE [facility], [facility] CCD[facility] Ot 729.81 SWELLING OF LIMB 01/23/2017 DHIRAJ LANCE [facility], [facility] CCDS Ot 780.79 OTH MALAISE FATIGUE 01/23/2017 DHIRAJ LANCE [facility], [facility] CCDS Ot 786.09 RESPIRATORY ABNORM NEC 01/23/2017 DHIRAJ LANCE [facility] CCDS Ot 786.59 CHEST PAIN NEC 02/07/2017 TIFFANY SAUCEDO MD Ot F17.210 NICOTINE DEPENDENCE, CIGARETTES, UNCOMPL 02/07/2017 TIFFANY SAUCEDO MD Ot F41 .8 OTHER SPECIFIED ANXIETY DISORDERS 02/07/2017 TIFFANY SAUCEDO MD Ot G43.909 MIGRAINE, UNSP, NOT INTRACTABLE, WITHOUT 02/07/2017 TIFFANY SAUCEDO MD Ot K21 .9 GASTRO-ESOPHAGEAL REFLUX DISEASE WITHOUT 02/07/2017 TIFFANY SAUCEDO MD Ot K58 .9 IRRITABLE BOWEL SYNDROME WITHOUT DIARRHE 02/07/2017 TIFFANY SAUCEDO MD Ot R10.84 GENERALIZED ABDOMINAL PAIN 02/07/2017 TIFFANY SAUCEDO MD Ot Z90.49 ACQUIRED ABSENCE OF OTHER SPECIFIED PART 02/07/2017 TIFFANY SAUCEDO MD Ot Z90.89 ACQUIRED ABSENCE OF OTHER ORGANS 02/10/2017 TIFFANY SAUCEDO MD Ot F17.210 NICOTINE DEPENDENCE, CIGARETTES, UNCOMPL 02/10/2017 TIFFANY SAUCEDO MD Ot F41 .8 OTHER SPECIFIED ANXIETY DISORDERS 02/10/2017 TIFFANY SAUCEDO MD Ot G43.909 MIGRAINE, UNSP, NOT INTRACTABLE, WITHOUT 02/10/2017 TIFFANY SAUCEDO MD Ot K21 .9 GASTRO-ESOPHAGEAL REFLUX DISEASE WITHOUT 02/10/2017 TIFFANY SAUCEDO MD Ot K58 .9 IRRITABLE BOWEL SYNDROME WITHOUT DIARRHE 02/10/2017 TIFFANY SAUCEDO MD Ot R10.84 GENERALIZED ABDOMINAL PAIN 02/10/2017 TIFFANY SAUCEDO MD Ot Z90.49 ACQUIRED ABSENCE OF OTHER SPECIFIED PART 02/10/2017 TIFFANY SAUCEDO MD Ot Z90.89 ACQUIRED ABSENCE OF OTHER ORGANS 02/12/2017 ONEIL BROOKS MD Ot R10.9 UNSPECIFIED ABDOMINAL PAIN 02/13/2017 TIFFANY SAUCEDO MD Ot F17.210 NICOTINE DEPENDENCE, CIGARETTES, UNCOMPL 02/13/2017 TIFFANY SAUCEDO MD Ot F41 .8 OTHER SPECIFIED ANXIETY DISORDERS 02/13/2017 TIFFANY SAUCEDO MD Ot G43.909 MIGRAINE, UNSP, NOT INTRACTABLE, WITHOUT 02/13/2017 TIFFANY SAUCEDO MD Ot K21 .9 GASTRO-ESOPHAGEAL REFLUX DISEASE WITHOUT 02/13/2017 TIFFANY SAUCEDO MD Ot K58 .9 IRRITABLE BOWEL SYNDROME WITHOUT DIARRHE 02/13/2017 TIFFANY SAUCEDO MD Ot R10.84 GENERALIZED ABDOMINAL PAIN 02/13/2017 TIFFANY SAUCEDO MD Ot Z90.49 ACQUIRED ABSENCE OF OTHER SPECIFIED PART 02/13/2017 TIFFANY SAUCEDO MD Ot Z90.89 ACQUIRED ABSENCE OF OTHER ORGANS 02/13/2017 INGRID LEE MD Ot R10. 11 RIGHT UPPER QUADRANT PAIN 02/13/2017 INGRID LEE MD Ot Z90. 49 ACQUIRED ABSENCE OF OTHER SPECIFIED PART 02/14/2017 ONEIL BROOKS MD Ot R10.9 UNSPECIFIED ABDOMINAL PAIN 02/18/2017 MILYBAR Solomon SURGICAL SERVICES ASSISTANT Ot F17.210 NICOTINE DEPENDENCE, CIGARETTES, UNCOMPL 02/18/2017 MILY, BAR SURGICAL SERVICES ASSISTANT Ot F32.9 MAJOR DEPRESSIVE DISORDER, SINGLE EPISOD 02/18/2017 MILY, BAR SURGICAL SERVICES ASSISTANT Ot F41.9 ANXIETY DISORDER, UNSPECIFIED 02/18/2017 MILY BAR SURGICAL SERVICES ASSISTANT Ot G43.909 MIGRAINE, UNSP, NOT INTRACTABLE, WITHOUT 02/18/2017 MILY, BAR SURGICAL SERVICES ASSISTANT Ot G89.29 OTHER CHRONIC PAIN 02/18/2017 MILY BAR SURGICAL SERVICES ASSISTANT Ot K21.9 GASTRO-ESOPHAGEAL REFLUX DISEASE WITHOUT 02/18/2017 MILY, BAR SURGICAL SERVICES ASSISTANT Ot M26.603 BILATERAL TEMPOROMANDIBULAR JOINT DISORD 02/18/2017 MILY, BAR SURGICAL SERVICES ASSISTANT Ot M54.9 DORSALGIA, UNSPECIFIED 02/18/2017 MILY, BAR SANP Ot R10.84 GENERALIZED ABDOMINAL PAIN 02/18/2017 MILY, BAR SANP Ot R53.82 CHRONIC FATIGUE, UNSPECIFIED 02/18/2017 MILY, BAR SANP Ot R68.84 JAW PAIN 02/18/2017 MILY BAR SANP Ot Z87.42 PERSONAL HISTORY OF OTH DISEASES OF THE 02/18/2017 BAR MINORP Ot Z90.49 ACQUIRED ABSENCE OF OTHER SPECIFIED PART 02/18/2017 MILY, BAR SURGICAL SERVICES ASSISTANT Ot Z90.710 ACQUIRED ABSENCE OF BOTH CERVIX AND UTER 02/18/2017 MILY BAR SANP Ot Z90.721 ACQUIRED ABSENCE OF OVARIES, UNILATERAL 03/06/2017 CECILIA LANCE, ONEIL Shoemaker Ot R10.9 UNSPECIFIED ABDOMINAL PAIN 03/24/2017 JESUS LANCE, INGRID Melendez Ot R10. 11 RIGHT UPPER QUADRANT PAIN 03/24/2017 JESUS LANCE, INGRID Melendez Ot Z90. 49 ACQUIRED ABSENCE OF OTHER SPECIFIED PART 04/01/2017 SANAM FRANK DO Ot F17.210 NICOTINE DEPENDENCE, CIGARETTES, UNCOMPL 04/01/2017 TRISHA FRANK DOA Raj Ot F32.9 MAJOR DEPRESSIVE DISORDER, SINGLE EPISOD 04/01/2017 SANAM FRANK DO Ot F41.9 ANXIETY DISORDER, UNSPECIFIED 04/01/2017 SANAM FRANK DO Ot G43.909 MIGRAINE, UNSP, NOT INTRACTABLE, WITHOUT 04/01/2017 TRISHA FRANK DOA K Ot G89.29 OTHER CHRONIC PAIN 04/01/2017 SANAM [...] HISTORY OF OTHER DISEASES OF TH 04/01/2017 MONIKA RAMOS SANAM K Ot Z87.448 PERSONAL HISTORY OF OTHER DISEASES OF UR 04/01/2017 MONIKA RAMOS SANAM K Ot Z90.49 ACQUIRED ABSENCE OF OTHER SPECIFIED PART 04/01/2017 MONIKA RAMOS SANAM K Ot Z90.710 ACQUIRED ABSENCE OF BOTH CERVIX AND UTER 04/04/2017 MONIKA SANAM K Ot F17.210 NICOTINE DEPENDENCE, CIGARETTES, UNCOMPL 04/04/2017 MONIKA RAMOS SANAM K Ot F32.9 MAJOR DEPRESSIVE DISORDER, SINGLE EPISOD 04/04/2017 MONIKA SANAM K Ot F41.9 ANXIETY DISORDER, UNSPECIFIED 04/04/2017 MONIKA SANAM K Ot G43.909 MIGRAINE, UNSP, NOT INTRACTABLE, WITHOUT 04/04/2017 MONIKA RAMOS SANAM K Ot G89.29 OTHER CHRONIC PAIN 04/04/2017 MONIKA SANAM K Ot K21.9 GASTRO-ESOPHAGEAL REFLUX DISEASE WITHOUT 04/04/2017 MONIKA SANAM K Ot M79.7 FIBROMYALGIA 04/04/2017 MONIKA SANAM K Ot N39.0 URINARY TRACT INFECTION, [...] DISEASES OF TH 04/04/2017 MONIKA RAMOS SANAM K Ot Z87.448 PERSONAL HISTORY OF OTHER DISEASES OF UR 04/04/2017 MONIKA RAMOS SANAM Raj Ot Z90.49 ACQUIRED ABSENCE OF OTHER SPECIFIED PART 04/04/2017 MONIKA TRISHAA K Ot Z90.710 ACQUIRED ABSENCE OF BOTH CERVIX AND UTER 04/04/2017 JESUS LANCE, INGRID Melendez Ot R10. 11 RIGHT UPPER QUADRANT PAIN 04/04/2017 INGRID LEE MD Ot Z90. 49 ACQUIRED ABSENCE OF OTHER SPECIFIED PART 04/07/2017 SANAM FRANK DO Ot F17.210 NICOTINE DEPENDENCE, CIGARETTES, UNCOMPL 04/07/2017 SANAM FRANK DO Ot F32.9 MAJOR DEPRESSIVE DISORDER, SINGLE EPISOD 04/07/2017 SANAM FRANK DO Ot F41.9 ANXIETY DISORDER, UNSPECIFIED 04/07/2017 SANAM [...] DISORDER 04/17/2017 MARITZA LANCE, PAULINA Lock Ot 440.2 0 ATHEROSCLEROSIS NUNAM IQUA ARTERIES EXTREMIT 04/17/2017 MARITZA LANCE, PAULINA Lock Ot 729.5 PAIN IN LIMB 04/17/2017 DANDRE LANCE, ANN Akins Ot 788.3 0 UNSPECIFIED URINARY INCONTINENCE 04/17/2017 DHIRAJ LANCE FAC, ALI FACP CCDS Ot 305.1 TOBACCO USE DISORDER 04/17/2017 DHIRAJ LANCE FACC, ALI FACP CCDS Ot 729.1 MYALGIA AND MYOSITIS NOS 04/17/2017 DHIRAJ LANCE FACC, ALI FACP CCDS Ot 729.81 SWELLING OF LIMB 04/17/2017 DHIRAJ LANCE FAC, ALI FACP CCDS Ot 780.79 OTH MALAISE FATIGUE 04/17/2017 DHIRAJ LANCE FAC, ALI FACP CCDS Ot 786.09 RESPIRATORY ABNORM NEC 04/17/2017 DHIRAJ LANCE FAC, ALI FACP CCDS Ot 786.59 CHEST PAIN NEC 04/17/2017 MOMO GILBERT SURGICAL SERVICES ASSISTANT Ot M62.82 RHABDOMYOLYSIS 04/17/2017 INGRID LEE MD Ot R10. 11 RIGHT UPPER QUADRANT PAIN 04/17/2017 INGRID LEE MD Ot Z90. 49 ACQUIRED ABSENCE OF OTHER SPECIFIED PART 04/17/2017 NANCY FLYNN MD Ot M54. 9 DORSALGIA, UNSPECIFIED 04/27/2017 NANCY FLYNN MD Ot F17.210 NICOTINE DEPENDENCE, CIGARETTES, UNCOMPL 04/27/2017 NANCY FLYNN MD Ot F32. 9 MAJOR DEPRESSIVE DISORDER, SINGLE EPISOD 04/27/2017 NANCY FLYNN MD Ot F41. 9 ANXIETY DISORDER, UNSPECIFIED 04/27/2017 NANCY FLYNN MD Ot G43.909 MIGRAINE, UNSP, NOT INTRACTABLE, WITHOUT 04/27/2017 NANCY FLYNN MD Ot J40 BRONCHITIS, NOT SPECIFIED ACUTE OR CH 04/27/2017 NANCY FLYNN MD Ot K21. 9 GASTRO-ESOPHAGEAL REFLUX DISEASE WITHOUT 04/27/2017 NANCY FLYNN MD Ot R07. 89 OTHER CHEST PAIN 04/27/2017 NANCY FLYNN MD Ot Z82. 49 FAMILY HX OF ISCHEM HEART DIS AND OTH DI 04/27/2017 NANCY FLYNN MD Ot Z87. 19 PERSONAL HISTORY OF OTHER DISEASES OF TH 04/27/2017 NANCY FLYNN MD Ot Z87.448 PERSONAL HISTORY OF OTHER DISEASES OF UR 04/27/2017 NANCY FLYNN MD Ot Z90.710 ACQUIRED ABSENCE OF BOTH CERVIX AND UTER 05/05/2017 DANDRE LANCE, ANN Akins Ot 788.3 0 UNSPECIFIED URINARY INCONTINENCE 05/05/2017 DHIRAJ LANCE FAC, ALI FACP CCDS Ot 305.1 TOBACCO USE DISORDER 05/05/2017 DHIRAJ LANCE FAC, ALI FACP CCDS Ot 729.1 MYALGIA AND MYOSITIS NOS 05/05/2017 DHIRAJ LANCE [facility] FACP CCDS Ot 729.81 SWELLING OF LIMB 05/05/2017 DHIRAJ LANCE [facility] FACP CCDS Ot 780.79 OTH MALAISE FATIGUE 05/05/2017 DHIRAJ LANCE [facility] FACP CCDS Ot 786.09 RESPIRATORY ABNORM NEC 05/05/2017 DHIRAJ LANCE [facility], ALI FACP CCDS Ot 786.59 CHEST PAIN NEC 05/05/2017 MOMO GILBERT SURGICAL SERVICES ASSISTANT Ot M62.82 RHABDOMYOLYSIS 05/05/2017 INGRID LEE MD Ot R10. 11 RIGHT UPPER QUADRANT PAIN 05/05/2017 INGRID LEE MD Ot Z90. 49 ACQUIRED ABSENCE OF OTHER SPECIFIED PART 05/12/2017 GUIDO MENDEZ [employer] LINUX ENGINEER Ot R94.6 ABNORMAL RESULTS OF THYROID FUNCTION SIXTO 05/23/2017 ALLYSON QUIROZ MD Ot M25.552 PAIN IN LEFT HIP 05/23/2017 ALLYSON QUIROZ MD Ot M25.561 PAIN IN RIGHT KNEE 05/27/2017 GUIDO MENDEZ [employer] ENGINEER Ot R94.6 ABNORMAL RESULTS OF THYROID FUNCTION SIXTO 06/06/2017 GUIDO MENDEZ [employer]UX ENGINEER Ot R94.6 ABNORMAL RESULTS OF THYROID FUNCTION SIXTO 06/12/2017 ALLYSON QUIROZ MD Ot M25.552 PAIN IN LEFT HIP 06/12/2017 ALLYSON QUIROZ MD Ot M25.561 PAIN IN RIGHT KNEE 06/23/2017 ALLYSON QUIROZ MD Ot M25.552 PAIN IN LEFT HIP 06/23/2017 ALLYSON QUIROZ MD Ot M25.561 PAIN IN RIGHT KNEE 07/06/2017 TIFFANY SAUCEDO MD Ot F32 .9 MAJOR DEPRESSIVE DISORDER, SINGLE EPISOD 07/06/2017 TIFFANY SAUCEDO MD Ot F41 .9 ANXIETY DISORDER, UNSPECIFIED 07/06/2017 TIFFANY SAUCEDO MD Ot G43.909 MIGRAINE, UNSP, NOT INTRACTABLE, WITHOUT 07/06/2017 TIFFANY SAUCEDO MD Ot K21 .9 GASTRO-ESOPHAGEAL REFLUX DISEASE WITHOUT 07/06/2017 TIFFANY SAUCEDO MD Ot M54 .5 LOW BACK PAIN 07/06/2017 TIFFANY SAUCEDO MD Ot N39 .0 URINARY TRACT INFECTION, SITE NOT SPECIF 07/06/2017 TIFFANY SAUCEDO MD Ot Z82.49 FAMILY HX OF ISCHEM HEART DIS AND OTH DI 07/06/2017 TIFFANY SAUCEDO MD Ot Z87.42 PERSONAL HISTORY OF OTH DISEASES OF THE 07/06/2017 TIFFANY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 NEGATIVE Erythrocytes detection in urine sediment by light micr oscopy NEGATIVE NEGATIVE Urine ketones detection by automated test strip NE GATIVE NEGATIVE Urine nitrite detection by test strip NEGATIVE NEGATIVE Urine total bilirubin detection by test strip NEGA TIVE NEGATIVE Urine urobilinogen measurement by automated test strip (mass/volume) NORMAL NORMAL Urine leukocyte esterase detection by dipstick NEG ATIVE NEGATIVE Automated urine sediment erythrocyte cou nt by microscopy (number/high power field) NONE NRG Automated urine sediment leukocyte count by microscopy (number/high power field) NONE NRG Bacteria detection in urine sediment by light microsco py TRACE NRG Squamous epithelial cells detection in u rine sediment by light microscopy 25-50 NRG Crystals detection in urine sediment by light microsco py NONE NRG Casts detection in urine sediment by light microscopy NONE NRG Mucus detection in urine sediment by light microscopy SMALL NRG Complete urinalysis with reflex to culture NO NRG Complete blood count (CBC) with automate d white blood cell (WBC) differential - 12/07/16 08:31 Blood leukocytes automated count (number/volume) 7.7 10*3/uL 4.3-11.0 Blood erythrocytes automated count (number/volume) 4.90 10*6/uL 4.35-5.85 Venous blood hemoglobin measurement (mass/volume) 13.4 g/dL 11.5-16.0 Blood hematocrit (volume fraction) 40 % 35-52 Automated erythrocyte mean corpuscular volume 81 [ foz_us] 80-99 Automated erythrocyte mean corpuscular h emoglobin (mass per erythrocyte) 27 pg 25-34 Automated erythrocyte mean corpuscular h emoglobin concentration measurement (mass/volume) 34 g/dL 32-36 Automated erythrocyte distribution width ratio 15. 5 % 10.0- 14.5 Automated blood platelet count [...] 10*3 1.0-4.0 Blood monocytes automated count (number/volume) 0. 6 10*3 0.0-1.0 Automated eosinophil count 0.2 10*3/uL 0 .0-0.3 Automated blood basophil count (count/volume) 0.1 10*3/uL 0.0-0.1 Erythrocyte sedimentation rate by lucio gren method - 12/07/16 08:31 Erythrocyte sedimentation rate by westergren method 14 mm 0- 20 Comprehensive metabolic panel - 12/07/16 08:31 Serum or plasma sodium measurement (moles/volume) 140 mmol/L 135-145 Serum or plasma potassium measurement (moles/volume) 3.9 mmol/L 3.6-5.0 Serum or plasma chloride measurement (moles/volume) 107 mmol/L 98-107 Carbon dioxide 24 mmol/L 21-32 Serum or plasma anion gap determination (moles/volume) 9 mmol/L 5-14 Serum or plasma urea nitrogen measurement (mass/volume ) 16 mg/dL 7-18 Serum or plasma creatinine measurement (mass/volume) 0.88 mg/dL 0.60-1.30 Serum or plasma urea nitrogen/creatinine mass ratio 18 NRG Serum or plasma creatinine measurement w ith calculation of estimated glomerular filtration rate > NRG Serum or plasma glucose measurement (mass/volume) 95 mg/dL 70-105 Serum or plasma calcium measurement (mass/volume) 9.1 mg/dL 8.5-10.1 Serum or plasma total bilirubin measurement (mass/volu me) 0.3 mg/dL 0.1-1.0 Serum or plasma alkaline phosphatase monet surement (enzymatic activity/volume) 123 U/L 40-136 Serum or plasma aspartate aminotransfera se measurement (enzymatic activity/volume) 21 U/L 5-34 Serum or plasma alanine aminotransferase measurement (enzymatic activity/volume) 32 U/L 0-55 Serum or plasma protein measurement (mass/volume) 7.3 g/dL 6.4-8.2 Serum or plasma albumin measurement (mass/volume) 4.0 g/dL 3.2-4.5 Magnesium - 12/07/16 08:31 Magnesium 2.1 mg/dL 1.8-2.4 Serum or plasma creatine kinase measurem ent (enzymatic activity/volume) - 12/07/16 08:31 Serum or plasma creatine kinase measurem ent (enzymatic activity/volume) 300 U/L 29-168 Serum or plasma C reactive protein measu rement (mass/volume) - 12/07/16 08:31 Serum or plasma C reactive protein measurement (mass/v olume) 2.16 mg/dL 0.00-0.50 Complete blood count (CBC) with automate d white blood cell (WBC) differential - 12/19/16 12:00 Blood leukocytes automated count (number/volume) 9.4 10*3/uL 4.3-11.0 Blood erythrocytes automated count (number/volume) 5.04 10*6/uL 4.35-5.85 Venous blood hemoglobin measurement (mass/volume) 14.0 g/dL 11.5-16.0 Blood hematocrit (volume fraction) 41 % 35-52 Automated erythrocyte mean corpuscular volume 81 [ foz_us] 80-99 Automated erythrocyte mean corpuscular h emoglobin (mass per erythrocyte) 28 pg 25-34 Automated erythrocyte mean corpuscular h emoglobin concentration measurement (mass/volume) 34 g/dL 32-36 Automated erythrocyte distribution width ratio 15. 6 % 10.0- 14.5 Automated blood platelet count [...] 10*3 1.0-4.0 Blood monocytes automated count (number/volume) 0. 5 10*3 0.0-1.0 Automated eosinophil count 0.1 10*3/uL 0 .0-0.3 Automated blood basophil count (count/volume) 0.1 10*3/uL 0.0-0.1 Comprehensive metabolic panel - 12/19/16 12:00 Serum or plasma sodium measurement (moles/volume) 139 mmol/L 135-145 Serum or plasma potassium measurement (moles/volume) 3.6 mmol/L 3.6-5.0 Serum or plasma chloride measurement (moles/volume) 104 mmol/L 98-107 Carbon dioxide 27 mmol/L 21-32 Serum or plasma anion gap determination (moles/volume) 8 mmol/L 5-14 Serum or plasma urea nitrogen measurement (mass/volume ) 17 mg/dL 7-18 Serum or plasma creatinine measurement (mass/volume) 0.88 mg/dL 0.60-1.30 Serum or plasma urea nitrogen/creatinine mass ratio 19 NRG Serum or plasma creatinine measurement w ith calculation of estimated glomerular filtration rate > NRG Serum or plasma glucose measurement (mass/volume) 94 mg/dL 70-105 Serum or plasma calcium measurement (mass/volume) 9.6 mg/dL 8.5-10.1 Serum or plasma total bilirubin measurement (mass/volu me) 0.4 mg/dL 0.1-1.0 Serum or plasma alkaline phosphatase monet surement (enzymatic activity/volume) 113 U/L 40-136 Serum or plasma aspartate aminotransfera se measurement (enzymatic activity/volume) 17 U/L 5-34 Serum or plasma alanine aminotransferase measurement (enzymatic activity/volume) 35 U/L 0-55 Serum or plasma protein measurement (mass/volume) 7.7 g/dL 6.4-8.2 Serum or plasma albumin measurement (mass/volume) 4.3 g/dL 3.2-4.5 Lipase - 12/19/16 12:00 Lipase 5 U/L 8-78 Complete urinalysis with reflex to cultu re - 12/19/16 12:55 Urine color determination YELLOW NRG Urine clarity determination CLEAR NR G Urine pH measurement by test strip 5 5-9 Specific gravity of urine by test strip 1.025 1.016-1.022 Urine protein assay by test strip, semi-quantitative NEGATIVE NEGATIVE Urine glucose detection by automated test strip NE GATIVE NEGATIVE Erythrocytes detection in urine sediment by light micr oscopy NEGATIVE NEGATIVE Urine ketones detection by automated test strip NE GATIVE NEGATIVE Urine nitrite detection by test strip NEGATIVE NEGATIVE Urine total bilirubin detection by test strip NEGA TIVE NEGATIVE Urine urobilinogen measurement by automated test strip (mass/volume) NORMAL NORMAL Urine leukocyte esterase detection by dipstick 1+ NEGATIVE Automated urine sediment erythrocyte cou nt by microscopy (number/high power field) RARE NRG Automated urine sediment leukocyte count by microscopy (number/high power field) [HPF] NRG Bacteria detection in urine sediment by light microsco py FEW NRG Squamous epithelial cells detection in u rine sediment by light microscopy 5-10 NRG Crystals detection in urine sediment by light microsco py NONE NRG Casts detection in urine sediment by light microscopy NONE NRG Mucus detection in urine sediment by light microscopy LARGE NRG Complete urinalysis with reflex to culture YES NRG Bacterial urine culture - 12/19/16 12:55 Bacterial urine culture [id number] NRG COLONY COUNT >100,000/ML NRG FTX;REPORTABLE SENSITIVITY REPORTED AT 1002, 5- 17 [facility] URINE CULTURE RESULTS PLUS NRG Bacterial susceptibility panel - 7 12:55 Gentamicin susceptibility test by minimum inhibitory c oncentration <= NRG Trimethoprim/sulfamethoxazole susceptibi lity test by minimum inhibitoryconcentration <= NRG Ampicillin susceptibility test by minimum inhibitory c oncentration 4 NRG Tobramycin susceptibility test by minimum inhibitory c oncentration <= NRG Cefazolin susceptibility test by minimum inhibitory co ncentration <= NRG Ceftriaxone susceptibility test by minimum inhibitory concentration <= NRG Ampicillin/sulbactam susceptibility test by minimum inhibitory concentration <= NRG Piperacillin/tazobactam susceptibility t est by minimum inhibitory concentration <= NRG Ciprofloxacin susceptibility test by minimum inhibitor y concentration <= NRG Meropenem susceptibility test by minimum inhibitory co ncentration <= NRG Nitrofurantoin susceptibility test by mi nimum inhibitory concentration <= NRG Aztreonam susceptibility test by minimum inhibitory co ncentration <= NRG Extended spectrum beta lactamase (ESBL) producing bacteria susceptibility test by minimum inhibitory concentration - NRG Complete blood count (CBC) with automate d white blood cell (WBC) differential - 02/07/17 07:45 Blood leukocytes automated count (number/volume) 7.2 10*3/uL 4.3-11.0 Blood erythrocytes automated count (number/volume) 5.29 10*6/uL 4.35-5.85 Venous blood hemoglobin measurement (mass/volume) 14.4 g/dL 11.5-16.0 Blood hematocrit (volume fraction) 42 % 35-52 Automated erythrocyte mean corpuscular volume 80 [ foz_us] 80-99 Automated erythrocyte mean corpuscular h emoglobin (mass per erythrocyte) 27 pg 25-34 Automated erythrocyte mean corpuscular h emoglobin concentration measurement (mass/volume) 34 g/dL 32-36 Automated erythrocyte distribution width ratio 15. 0 % 10.0- 14.5 Automated blood platelet count [...] 10*3 1.0-4.0 Blood monocytes automated count (number/volume) 0. 5 10*3 0.0-1.0 Automated eosinophil count 0.1 10*3/uL 0 .0-0.3 Automated blood basophil count (count/volume) 0.0 10*3/uL 0.0-0.1 Complete urinalysis with reflex to cultu re - 02/07/17 07:45 Urine color determination YELLOW NRG Urine clarity determination CLEAR NR G Urine pH measurement by test strip 6 5-9 Specific gravity of urine by test strip 1.020 1.016-1.022 Urine protein assay by test strip, semi-quantitative 1+ NEGATIVE Urine glucose detection by automated test strip NE GATIVE NEGATIVE Erythrocytes detection in urine sediment by light micr oscopy 1+ NEGATIVE Urine ketones detection by automated test strip NE GATIVE NEGATIVE Urine nitrite detection by test strip NEGATIVE NEGATIVE Urine total bilirubin detection by test strip NEGA TIVE NEGATIVE Urine urobilinogen measurement by automated test strip (mass/volume) NORMAL NORMAL Urine leukocyte esterase detection by dipstick NEG ATIVE NEGATIVE Automated urine sediment erythrocyte cou nt by microscopy (number/high power field) NONE NRG Automated urine sediment leukocyte count by microscopy (number/high power field) NONE NRG Bacteria detection in urine sediment by light microsco py TRACE NRG Squamous epithelial cells detection in u rine sediment by light microscopy 25-50 NRG Crystals detection in urine sediment by light microsco py NONE NRG Casts detection in urine sediment [...] 5-14 Serum or plasma urea nitrogen measurement (mass/volume ) 14 mg/dL 7-18 Serum or plasma creatinine measurement (mass/volume) 0.85 mg/dL 0.60-1.30 Serum or plasma urea nitrogen/creatinine mass ratio 16 NRG Serum or plasma creatinine measurement w ith calculation of estimated glomerular filtration rate > NRG Serum or plasma glucose measurement (mass/volume) 101 mg/dL 70-105 Serum or plasma calcium measurement (mass/volume) 9.6 mg/dL 8.5-10.1 Serum or plasma total bilirubin measurement (mass/volu me) 0.3 mg/dL 0.1-1.0 Serum or plasma alkaline phosphatase monet surement (enzymatic activity/volume) 147 U/L 40-136 Serum or plasma aspartate aminotransfera se measurement (enzymatic activity/volume) 25 U/L 5-34 Serum or plasma alanine aminotransferase measurement (enzymatic activity/volume) 56 U/L 0-55 Serum or plasma protein measurement (mass/volume) 8.2 g/dL 6.4-8.2 Serum or plasma albumin measurement (mass/volume) 4.2 g/dL 3.2-4.5 Complete blood count (CBC) with automate d white blood cell (WBC) differential - 02/12/17 14:55 Blood leukocytes automated count (number/volume) 8.1 10*3/uL 4.3-11.0 Blood erythrocytes automated count (number/volume) 5.01 10*6/uL 4.35-5.85 Venous blood hemoglobin measurement (mass/volume) 13.7 g/dL 11.5-16.0 Blood hematocrit (volume fraction) 40 % 35-52 Automated erythrocyte mean corpuscular volume 80 [ foz_us] 80-99 Automated erythrocyte mean corpuscular h emoglobin (mass per erythrocyte) 27 pg 25-34 Automated erythrocyte mean corpuscular h emoglobin concentration measurement (mass/volume) 34 g/dL 32-36 Automated erythrocyte distribution width ratio 15. 1 % 10.0- 14.5 Automated blood platelet count [...] 10*3 1.0-4.0 Blood monocytes automated count (number/volume) 0. 5 10*3 0.0-1.0 Automated eosinophil count 0.1 10*3/uL 0 .0-0.3 Automated blood basophil count (count/volume) 0.1 10*3/uL 0.0-0.1 Comprehensive metabolic panel - 02/12/17 14:55 Serum or plasma sodium measurement (moles/volume) 142 mmol/L 135-145 Serum or plasma potassium measurement (moles/volume) 3.6 mmol/L 3.6-5.0 Serum or plasma chloride measurement (moles/volume) 106 mmol/L 98-107 Carbon dioxide 27 mmol/L 21-32 Serum or plasma anion gap determination (moles/volume) 9 mmol/L 5-14 Serum or plasma urea nitrogen measurement (mass/volume ) 18 mg/dL 7-18 Serum or plasma creatinine measurement (mass/volume) 0.85 mg/dL 0.60-1.30 Serum or plasma urea nitrogen/creatinine mass ratio 21 NRG Serum or plasma creatinine measurement w ith calculation of estimated glomerular filtration rate > NRG Serum or plasma glucose measurement (mass/volume) 93 mg/dL 70-105 Serum or plasma calcium measurement (mass/volume) 9.4 mg/dL 8.5-10.1 Serum or plasma total bilirubin measurement (mass/volu me) 0.3 mg/dL 0.1-1.0 Serum or plasma alkaline phosphatase monet surement (enzymatic activity/volume) 160 U/L 40-136 Serum or plasma aspartate aminotransfera se measurement (enzymatic activity/volume) 24 U/L 5-34 Serum or plasma alanine aminotransferase measurement (enzymatic activity/volume) 51 U/L 0-55 Serum or plasma protein measurement (mass/volume) 8.1 g/dL 6.4-8.2 Serum or plasma albumin measurement (mass/volume) 4.2 g/dL 3.2-4.5 Complete blood count (CBC) with automate d white blood cell (WBC) differential - 02/18/17 15:37 Blood leukocytes automated count (number/volume) 8.4 10*3/uL 4.3-11.0 Blood erythrocytes automated count (number/volume) 4.74 10*6/uL 4.35-5.85 Venous blood hemoglobin measurement (mass/volume) 12.8 g/dL 11.5-16.0 Blood hematocrit (volume fraction) 38 % 35-52 Automated erythrocyte mean corpuscular volume 81 [ foz_us] 80-99 Automated erythrocyte mean corpuscular h emoglobin (mass per erythrocyte) 27 pg 25-34 Automated erythrocyte mean corpuscular h emoglobin concentration measurement (mass/volume) 34 g/dL 32-36 Automated erythrocyte distribution width ratio 15. 4 % 10.0- 14.5 Automated blood platelet count [...] 10*3 1.0-4.0 Blood monocytes automated count (number/volume) 0. 5 10*3 0.0-1.0 Automated eosinophil count 0.1 10*3/uL 0 .0-0.3 Automated blood basophil count (count/volume) 0.0 10*3/uL 0.0-0.1 Complete urinalysis with reflex to cultu re - 02/18/17 16:55 Urine color determination YELLOW NRG Urine clarity determination CLEAR NR G Urine pH measurement by test strip 6 5-9 Specific gravity of urine by test strip 1.005 1.016-1.022 Urine protein assay by test strip, semi-quantitative NEGATIVE NEGATIVE Urine glucose detection by automated test strip NE GATIVE NEGATIVE Erythrocytes detection in urine sediment by light micr oscopy NEGATIVE NEGATIVE Urine ketones detection by automated test strip NE GATIVE NEGATIVE Urine nitrite detection by test strip NEGATIVE NEGATIVE Urine total bilirubin detection by test strip NEGA TIVE NEGATIVE Urine urobilinogen measurement by automated test strip (mass/volume) NORMAL NORMAL Urine leukocyte esterase detection by dipstick NEG ATIVE NEGATIVE Automated urine sediment erythrocyte cou nt by microscopy (number/high power field) NONE NRG Automated urine sediment leukocyte count by microscopy (number/high power field) NONE NRG Bacteria detection in urine sediment by light microsco py TRACE NRG Squamous epithelial cells detection in u rine sediment by light microscopy 5-10 NRG Crystals detection in urine sediment by light microsco py NONE NRG Casts detection in urine sediment [...] 5-14 Serum or plasma urea nitrogen measurement (mass/volume ) 10 mg/dL 7-18 Serum or plasma creatinine measurement (mass/volume) 0.76 mg/dL 0.60-1.30 Serum or plasma urea nitrogen/creatinine mass ratio 13 NRG Serum or plasma creatinine measurement w ith calculation of estimated glomerular filtration rate > NRG Serum or plasma glucose measurement (mass/volume) 75 mg/dL 70-105 Serum or plasma calcium measurement (mass/volume) 8.2 mg/dL 8.5-10.1 Serum or plasma total bilirubin measurement (mass/volu me) 0.2 mg/dL 0.1-1.0 Serum or plasma alkaline phosphatase monet surement (enzymatic activity/volume) 125 U/L 40-136 Serum or plasma aspartate aminotransfera se measurement (enzymatic activity/volume) 18 U/L 5-34 Serum or plasma alanine aminotransferase measurement (enzymatic activity/volume) 51 U/L 0-55 Serum or plasma protein measurement (mass/volume) 6.3 g/dL 6.4-8.2 Serum or plasma albumin measurement (mass/volume) 3.3 g/dL 3.2-4.5 Lipase - 02/18/17 16:55 Lipase 4 U/L 8-78 Complete blood count (CBC) with automate d white blood cell (WBC) differential - 04/01/17 08:40 Blood leukocytes automated count (number/volume) 7.2 10*3/uL 4.3-11.0 Blood erythrocytes automated count (number/volume) 5.06 10*6/uL 4.35-5.85 Venous blood hemoglobin measurement (mass/volume) 13.6 g/dL 11.5-16.0 Blood hematocrit (volume fraction) 41 % 35-52 Automated erythrocyte mean corpuscular volume 81 [ foz_us] 80-99 Automated erythrocyte mean corpuscular h emoglobin (mass per erythrocyte) 27 pg 25-34 Automated erythrocyte mean corpuscular h emoglobin concentration measurement (mass/volume) 33 g/dL 32-36 Automated erythrocyte distribution width ratio 16. 5 % 10.0- 14.5 Automated blood platelet count [...] 10*3 1.0-4.0 Blood monocytes automated count (number/volume) 0. 4 10*3 0.0-1.0 Automated eosinophil count 0.1 10*3/uL 0 .0-0.3 Automated blood basophil count (count/volume) 0.0 10*3/uL 0.0-0.1 Serum heterophile antibody titer - 04/01 08:40 Serum heterophile antibody titer NEGATIVE NEGATIVE Comprehensive metabolic panel - 04/01/17 08:40 Serum or plasma sodium measurement (moles/volume) 140 mmol/L 135-145 Serum or plasma potassium measurement (moles/volume) 3.9 mmol/L 3.6-5.0 Serum or plasma chloride measurement (moles/volume) 104 mmol/L 98-107 Carbon dioxide 26 mmol/L 21-32 Serum or plasma anion gap determination (moles/volume) 10 mmol/L 5-14 Serum or plasma urea nitrogen measurement (mass/volume ) 14 mg/dL 7-18 Serum or plasma creatinine measurement (mass/volume) 0.82 mg/dL 0.60-1.30 Serum or plasma urea nitrogen/creatinine mass ratio 17 NRG Serum or plasma creatinine measurement w ith calculation of estimated glomerular filtration rate > NRG Serum or plasma glucose measurement (mass/volume) 87 mg/dL 70-105 Serum or plasma calcium measurement (mass/volume) 9.7 mg/dL 8.5-10.1 Serum or plasma total bilirubin measurement (mass/volu me) 0.3 mg/dL 0.1-1.0 Serum or plasma alkaline phosphatase monet surement (enzymatic activity/volume) 163 U/L 40-136 Serum or plasma aspartate aminotransfera se measurement (enzymatic activity/volume) 24 U/L 5-34 Serum or plasma alanine aminotransferase measurement (enzymatic activity/volume) 59 U/L 0-55 Serum or plasma protein measurement (mass/volume) 7.8 g/dL 6.4-8.2 Serum or plasma albumin measurement (mass/volume) 4.1 g/dL 3.2-4.5 Magnesium - 04/01/17 08:40 Magnesium 2.2 mg/dL 1.8-2.4 Serum or plasma amylase measurement (enz ymatic activity/volume) - 04/01/17 08:40 Serum or plasma amylase measurement (enzymatic activit y/volume) 68 U/L 25-125 Lipase - 04/01/17 08:40 Lipase < U/L 8-78 Serum or plasma thyrotropin measurement by detection limit <=0.05 miu/l (units/volume) - 04/01/17 08:40 Serum or plasma thyrotropin measurement by detection limit <=0.05 miu/l (units/volume) 1.02 u[iU]/mL 0.35-4.94 Serum or plasma ethanol measurement (mas s/volume) - 04/01/17 08:40 Serum or plasma ethanol measurement (mass/volume) < mg/dL <10 Serum or plasma acetaminophen measuremen t (mass/volume) - 04/01/17 08:40 Serum or plasma acetaminophen measurement (mass/volume ) < ug/mL 10-30 Acute hepatitis panel - 04/01/17 08:40 Confirmatory quantitative serum or plasm a hepatitis B virus surface antigen measurement Non-Reactive Non-Reactive Hepatitis A virus IgM antibody assay Non-Reactive Non- Reactive Hepatitis B virus core IgM antibody assay Non-Reac tive Non- Reactive Serum hepatitis C virus antibody detection Non-[place] ctive Non-Reactive Complete urinalysis with reflex to cultu re - 04/01/17 08:49 Urine color determination YELLOW NRG Urine clarity determination VERY CLOUDY NRG Urine pH measurement by test strip 5 5-9 Specific gravity of urine by test strip 1.015 1.016-1.022 Urine protein assay by test strip, semi-quantitative 1+ NEGATIVE Urine glucose detection by automated test strip NE GATIVE NEGATIVE Erythrocytes detection in urine sediment by light micr oscopy 2+ NEGATIVE Urine ketones detection by automated test strip NE GATIVE NEGATIVE Urine nitrite detection by test strip POSITIVE NEGATIVE Urine total bilirubin detection by test strip NEGA TIVE NEGATIVE Urine urobilinogen measurement by automated test strip (mass/volume) NORMAL NORMAL Urine leukocyte esterase detection by dipstick 3+ NEGATIVE Automated urine sediment erythrocyte cou nt by microscopy (number/high power field) RARE NRG Automated urine sediment leukocyte count by microscopy (number/high power field) > [HPF] NRG Bacteria detection in urine sediment by light microsco py MODERATE NRG Squamous epithelial cells detection in u rine sediment by light microscopy 10-25 NRG Crystals detection in urine sediment by light microsco py NONE NRG Casts detection in urine sediment by light microscopy NONE NRG Mucus detection in urine sediment by light microscopy NEGATIVE NRG Complete urinalysis with reflex to culture YES NRG Urine drug screening test - 04/01/17 08: 49 Urine phencyclidine detection by screening method NEGATIVE NEGATIVE Urine benzodiazepines detection by screening method NEGATIVE NEGATIVE Urine cocaine detection NEGATIVE NEGATI VE Urine amphetamines detection by screening method N EGATIVE NEGATIVE Urine methamphetamine detection by screening method NEGATIVE NEGATIVE Urine cannabinoids detection by screening method N EGATIVE NEGATIVE Urine opiates detection by screening method NEGATI VE NEGATIVE Urine barbiturates detection NEGATIVE N EGATIVE Screening urine tricyclic antidepressants detection POSITIVE NEGATIVE Urine methadone detection by screening method NEGA TIVE NEGATIVE Urine oxycodone detection NEGATIVE NEGA TIVE Urine propoxyphene detection NEGATIVE N EGATIVE Bacterial urine culture - 04/01/17 08:49 Bacterial urine culture [id number] NRG COLONY COUNT 10,000/ML - 100,000/ML NRG FTX;REPORTABLE SENSITIVITY REPORTED 04/03 09:30 NRG URINE CULTURE RESULTS PLUS NRG Bacterial susceptibility panel - 7 08:49 Gentamicin susceptibility test by minimum inhibitory c oncentration <= NRG Trimethoprim/sulfamethoxazole susceptibi lity test by minimum inhibitoryconcentration <= NRG Ampicillin susceptibility test by minimum inhibitory c oncentration 8 NRG Tobramycin susceptibility test by minimum inhibitory c oncentration <= NRG Cefazolin susceptibility test by minimum inhibitory co ncentration <= NRG Ceftriaxone susceptibility test by minimum inhibitory concentration <= NRG Ampicillin/sulbactam susceptibility test by minimum inhibitory concentration 4 NRG Piperacillin/tazobactam susceptibility t est by minimum inhibitory concentration <= NRG Ciprofloxacin susceptibility test by minimum inhibitor y concentration <= NRG Meropenem susceptibility test by minimum inhibitory co ncentration <= NRG Nitrofurantoin susceptibility test by mi nimum inhibitory concentration <= NRG Aztreonam susceptibility test by minimum inhibitory co ncentration <= NRG Extended spectrum beta lactamase (ESBL) producing bacteria susceptibility test by minimum inhibitory concentration - NRG Complete blood count (CBC) with automate d white blood cell (WBC) differential - 04/27/17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
[2020-02-06] MEDS ORDERED: NS IV 1000 ML 1,000 ML IV SCH (11:27)
[2020-02-06] MEDS ORDERED: ONDANSETRON 4 MG/2 ML (SDV) Z0FRAN IVP ONE ×2 (11:30→13:15)
[2020-02-06 11:36] LABS: BILIRUBIN,URINE NEGATIVE (NEGATIVE); CLARITY,URINE SL CLOUDY; COLOR,URINE YELLOW; GLUCOSE, URINE (UA) NEGATIVE (NEGATIVE); KETONES,URINE NEGATIVE (NEGATIVE); LEUKOCYTE ESTERASE ,URINE 1+ (NEGATIVE); NITRITE,URINE NEGATIVE (NEGATIVE); PH,URINE 5.5 (5-9); PROTEIN,URINE NEGATIVE (NEGATIVE)
--- NOTE | 2020-02-06 11:42 | ED General ---
General Chief Complaint: General Problems/Pain Stated Complaint: FATIGUE/NAUSEA/HEADACHE History of Present Illness Date Seen by Provider: Feb 06, 2020 Time Seen by Provider: 11:05 Initial Comments 39-year-old female presents for diarrhea and nausea. Her symptoms began yesterday morning. She has not had any issues with diarrhea since 2199 yesterday. She did take Imodium yesterday. She is having stomach cramps and feeling weak. She has been able to take small sips of fluids but has not eaten any solid foods today. She is concerned with dehydration. 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 Denies sore throat, changes in taste/smell. Previous abdominal surgeries include hysterectomy, appendectomy and cholecystectomy. Timing/Duration: 12-24 Hours Associated Systoms: Loss of Appetite, Nausea/Vomiting, Weakness Allergies and Home Medications Allergies Coded Allergies: pregabalin (Verified Adverse Reaction, Intermediate, 12/07/16) Rhabdomyolysis meperidine (Verified Adverse Reaction, Mild, NAUSEA, 12/07/16) morphine (Verified Adverse Reaction, Mild, NAUSEA, 09/13/07) Uncoded Allergies: STEROID PILLS (Allergy, Unknown, 11/15/13) Home Medications Fluconazole 100 Mg Tablet, 100 MG PO ONCE Prescribed by: BAR MINOR on 02/06/20 1245 Ondansetron 4 Mg Tab.rapdis, 4 MG PO Q6H PRN for NAUSEA/VOMITING Prescribed by: NANCY FLYNN on 08/08/19 1409 Promethazine HCl 25 Mg Tablet, 25 MG PO Q6H PRN for NAUSEA/VOMITING Prescribed by: NANCY FLYNN on 08/08/19 1409 Patient Home Medication List Home Medication List Reviewed: Yes Review of Systems Review of Systems Constitutional: see HPI; No fever; malaise, weakness EENTM: see HPI, no symptoms reported Respiratory: no symptoms reported, see HPI; No cough Gastrointestinal: see HPI, abdominal pain, diarrhea; No jaundice; loss of appetite, nausea; No vomiting Genitourinary: no symptoms reported, see HPI; No dysuria, No frequency, No hematuria, No pain All Other Systems Reviewed Negative Unless Noted: Yes Past Oifxglh-Fkphkb-Dwgzgl Hx Past Med/Social Hx: Reviewed Nursing Past Med/Soc Hx Patient Social History Alcohol Use: Denies Use Recreational Drug Use: No Type Used: Cigars 2nd Hand Smoke Exposure: Yes Recent Foreign Travel: No Contact w/Someone Who Travel: No Recent Hopitalizations: No Immunizations Up To Date Tetanus Booster (TDap): Unknown Date of Influenza Vaccine: May 15, 2016 Seasonal Allergies Seasonal Allergies: Yes Past Medical History Surgeries: Yes (TEAR REPAIR AFTER VAG , DX LAP FOR ENDOMETRIOSIS/OVARIAN CYSTS,EGD) Abdominal, Appendectomy, Gallbladder, Hysterectomy, Oophorectomy Respiratory: No Cardiac: Yes High Cholesterol, Hypertension Neurological: Yes Headaches /Migraines 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 Disorders: Yes Female 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 Disorders: 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, 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 Sexually Transmitted Disease: No Genitourinary: No Gastrointestinal: Yes (CHRONIC NAUSEA AND ABDOMINAL PAIN ) Gastroesophageal Reflux, Diverticulosis Musculoskeletal: Yes Fibromyalgia, Chronic Back Pain Endocrine: No HEENT: No Cancer: No Psychosocial: Yes Anxiety, Depression Integumentary: No Blood Disorders: No Family Medical History Cancer Cataract Family history: Allergy Family history: Arthritis Family history: Asthma Family history: Breast disease Family history: Diabetes mellitus Family history: Hypertension Family history: Osteoporosis Family history: Thyroid disorder Headache Heart disease Hypercholesterolemia Psychotic disorder Seizure disorder No Family History of: Abdominal aortic aneurysm [place]'s disease Alcoholism Aphasia Cancer of colon Chest pain Congenital heart disease Congestive heart failure Cystic fibrosis Dementia Dysphagia Family history: Alzheimer's disease Family history: Cardiovascular disease Family history: Coronary thrombosis Family history: Gastrointestinal disease Family history: Glaucoma Hearing loss Hereditary disease History of - anemia History of - disorder History of - respiratory disease History of drug abuse Human immunodeficiency virus (HIV) seropositivity Infertile Kidney disease Malignant neoplasm of lung Myocardial infarction Parkinson's disease Prostate cancer Stroke Tuberculosis Visual impairment Physical Exam Vital Signs Vital Signs - First Documented 02/06/20 12:55 Temp 36.9 Pulse 82 Resp 18 B/P (MAP) 128/80 Pulse Ox 99 O2 Delivery Room Air Capillary Refill : Height, Weight, BMI Height: 5'11.00" Weight: 220lbs. 0oz. 99.001238lv; 32.00 BMI Method:Stated General Appearance: No Apparent Distress, WD/WN Eyes: Bilateral Eye Normal Inspection, Bilateral Eye PERRL, Bilateral Eye EOMI HEENT: PERRL/EOMI, TMs Normal, Normal ENT Inspection, Pharynx Normal, Other (oral mucosa pink and dry.) Neck: Full Range of Motion, Normal Inspection, Non Tender, Supple Respiratory: Chest Non Tender, Lungs Clear, Normal Breath Sounds Cardiovascular: Regular Rate, Rhythm, No Edema, No Murmur, Normal Peripheral Pulses Gastrointestinal: Normal Bowel Sounds, Non Tender, Soft Back: Normal Inspection, No CVA Tenderness, No Vertebral Tenderness Neurologic/Psychiatric: Alert, Oriented x3, No Motor/Sensory Deficits, Normal Mood/Affect Skin: Normal Color, Warm/Dry Lymphatic: No Adenopathy Progress/Results/Core Measures Suspected Sepsis SIRS Temperature: Pulse: Respiratory Rate: Laboratory Tests 02/06/20 11:39: White Blood Count 8.3 Blood Pressure / Mean: Laboratory Tests 02/06/20 11:39: Creatinine 0.93, Platelet Count 353, Total Bilirubin 0.2 Results/Orders Lab Results Laboratory Tests Test 02/06/20 11:29 02/06/20 11:39 Range/Units Urine Color YELLOW Urine Clarity SL CLOUDY Urine pH 5.5 5-9 Urine Specific [place] >=1.030 1.016-1.022 Urine Protein NEGATIVE NEGATIVE Urine Glucose (UA) NEGATIVE NEGATIVE Urine Ketones NEGATIVE NEGATIVE Urine Nitrite NEGATIVE NEGATIVE Urine Bilirubin NEGATIVE NEGATIVE Urine Urobilinogen 0.2 < = 1.0 MG/DL Urine Leukocyte Esterase 1+ H NEGATIVE Urine RBC (Auto) NEGATIVE NEGATIVE Urine RBC NONE /HPF Urine WBC 5-10 H /HPF Urine Squamous Epithelial Cells 10-25 H /HPF Urine Crystals NONE /LPF Urine Bacteria TRACE /HPF Urine Casts NONE /LPF Urine Mucus NEGATIVE /LPF Urine Yeast FEW H /HPF Urine Culture Indicated YES White Blood Count 8.3 4.3-11.0 10^3/uL Red Blood Count 4.53 4.35-5.85 10^6/uL Hemoglobin 12.9 11.5-16.0 G/DL Hematocrit 39 35-52 % Mean Corpuscular Volume 85 80-99 FL Mean Corpuscular Hemoglobin 29 25-34 PG Mean Corpuscular Hemoglobin Concent 33 32-36 G/DL Red Cell Distribution Width 17.7 H 10.0-14.5 % Platelet Count 353 130-400 10^3/uL Mean Platelet Volume 9.1 7.4-10.4 FL Neutrophils (%) (Auto) 68 42-75 % Lymphocytes (%) (Auto) 26 12-44 % Monocytes (%) (Auto) 4 0-12 % Eosinophils (%) (Auto) 2 0-10 % Basophils (%) (Auto) 0 0-10 % Neutrophils # (Auto) 5.6 1.8-7.8 X 10^3 Lymphocytes # (Auto) 2.2 1.0-4.0 X 10^3 Monocytes # (Auto) 0.4 0.0-1.0 X 10^3 Eosinophils # (Auto) 0.2 0.0-0.3 10^3/uL Basophils # (Auto) 0.0 0.0-0.1 10^3/uL Sodium Level 140 135-145 MMOL/L Potassium Level 3.7 3.6-5.0 MMOL/L Chloride Level 103 98-107 MMOL/L Carbon Dioxide Level 28 21-32 MMOL/L Anion Gap 9 5-14 MMOL/L Blood Urea Nitrogen 14 7-18 MG/DL Creatinine 0.93 0.60-1.30 MG/DL Estimat Glomerular Filtration Rate > 60 BUN/Creatinine Ratio 15 Glucose Level 106 H 70-105 MG/DL Calcium Level 9.1 8.5-10.1 MG/DL Corrected Calcium 9.2 8.5-10.1 MG/DL Total Bilirubin 0.2 0.1-1.0 MG/DL Aspartate Amino Transf (AST/SGOT) 15 5-34 U/L Alanine Aminotransferase (ALT/SGPT) 20 0-55 U/L Alkaline Phosphatase 155 H 40-136 U/L Total Protein 7.6 6.4-8.2 GM/DL Albumin 3.9 3.2-4.5 GM/DL Amylase Level 95 25-125 U/L Lipase 7 L 8-78 U/L My Orders Orders - BAR MINOR Ua Culture If Indicated (02/06/20 11:20) Ondansetron Injection (Zofran Injectio (02/06/20 11:30) Abdomen/Kub 1view (02/06/20 11:27) Amylase (02/06/20 11:27) Cbc With Automated Diff (02/06/20 11:27) Comprehensive Metabolic Panel (02/06/20 11:27) Lipase (02/06/20 11:27) Ed Iv/Invasive Line Start (02/06/20 11:27) Ns Iv 1000 Ml (Sodium Chloride 0.9%) (02/06/20 11:27) Urine Culture (02/06/20 11:29) Medications Given in ED Current Medications Medications Dose Ordered Sig/Cali Route Start Time Stop Time Status Last Admin Dose Admin Ondansetron HCl 8 mg ONCE ONCE IVP 02/06/20 11:30 02/06/20 11:31 DC 02/06/20 11:39 4 MG Vital Signs/I&O 02/06/20 12:55 Temp 36.9 Pulse 82 Resp 18 B/P (MAP) 128/80 Pulse Ox 99 O2 Delivery Room Air Capillary Refill : Progress Note : Time: 11:05 Progress Note Patient seen and evaluated, will obtain labs, KUB, Zofran 8 mg IV and 1 L normal saline. 1200 patient reports feeling much better. Labs and x-ray normal. Discharge instructions and return precautions reviewed. Diagnostic Imaging Diagonstic Imaging: Xray Plain Films/CT/US/NM/MRI: abdomen Comments NAME: BALDO EDWARDS MED REC#: [id number] PT STATUS: REG ER : 1980 PHYSICIAN: BAR MINOR ADMIT DATE: 02/06/20/ER Draft Date of Exam:02/06/20 ABDOMEN/KUB 1VIEW Indication: Nausea, vomiting, abdominal pain. Comparison: None. Findings: 2 views of the abdomen demonstrate mild constipation. No obstruction, ileus or free air. No abnormal calcifications are seen. Osseous structures normal. Cholecystectomy clips are present Impression: Mild constipation Dictated on workstation # [id number] Dict: 02/06/20 1203 Trans: 02/06/20 1209 CV [id number] Interpreted by: GENNARO PARKS Electronically signed by: Departure Impression Primary Impression: Diarrhea Qualified Codes: R19.7 - Diarrhea, unspecified Disposition: 01 HOME, SELF-CARE Condition: Improved Departure-Patient Inst. Decision time for Depature: 12:20 Referrals: ALLYSON QUIROZ MD (PCP/Family) Primary Care Physician Patient Instructions: Diarrhea and Travelers' Diarrhea, Adult (DC) Add. Discharge Instructions: Take Fluconazole 1 tablet, wait 72 hours, then take 2nd one. Clear liquid diet for next 6-8 hours, then bland diet until tolerating, then regular diet. Continue to take Imodium, for diarrhea. Increase rest and fluids Follow up with your primary care doctor, if symptoms are not improving. Return to ER for urgent, new health care needs. All discharge instructions reviewed with patient and/or family. Voiced understanding. Scripts Fluconazole (Fluconazole) 100 Mg Tablet 100 MG PO ONCE, #2 TAB 0 Refills Prov: BAR MINOR 02/06/20 BAR MINOR Feb 06, 2020 11:42
[2020-02-06 11:44] LABS: BACTERIA,URINE TRACE /HPF; YEAST,URINE FEW /HPF
[2020-02-06 11:48] LABS: BASOPHILS % (AUTO) 0 % (0-10); EOSINOPHILS # (AUTO) 0.2 10^3/uL (0.0-0.3); EOSINOPHILS % (AUTO) 2 % (0-10); HEMATOCRIT 39 % (35-52); HEMOGLOBIN 12.9 G/DL (11.5-16.0); LYMPHOCYTES # (AUTO) 2.2 X 10^3 (1.0-4.0); LYMPHOCYTES % (AUTO) 26 % (12-44); MEAN CORPUSCULAR HEMOGLOBIN 29 PG (25-34); MEAN CORPUSCULAR HGB CONC 33 G/DL (32-36); MEAN CORPUSCULAR VOLUME 85 FL (80-99); MEAN PLATELET VOLUME 9.1 FL (7.4-10.4); MONOCYTES # (AUTO) 0.4 X 10^3 (0.0-1.0); MONOCYTES % (AUTO) 4 % (0-12); NEUTROPHILS # (AUTO) 5.6 X 10^3 (1.8-7.8); NEUTROPHILS % (AUTO) 68 % (42-75); PLATELET COUNT 353 10^3/uL (130-400); RED CELL DISTRIBUTION WIDTH 17.7 % (10.0-14.5); WHITE BLOOD COUNT 8.3 10^3/uL (4.3-11.0)
[2020-02-06 11:57] LABS: ALBUMIN 3.9 GM/DL (3.2-4.5)
[2020-02-06 11:58] LABS: AMYLASE 95 U/L (25-125); CHLORIDE 103 MMOL/L (98-107); POTASSIUM 3.7 MMOL/L (3.6-5.0); SODIUM 140 MMOL/L (135-145)
[2020-02-06 11:59] LABS: CALCIUM 9.1 MG/DL (8.5-10.1)
[2020-02-06 12:00] LABS: GLUCOSE 106 MG/DL (70-105); TOTAL PROTEIN 7.6 GM/DL (6.4-8.2)
[2020-02-06 12:01] LABS: CARBON DIOXIDE 28 MMOL/L (21-32)
[2020-02-06 12:02] LABS: BILIRUBIN,TOTAL 0.2 MG/DL (0.1-1.0)
[2020-02-06 12:04] LABS: ALKALINE PHOSPHATASE 155 U/L (40-136); CREATININE SERUM 0.93 MG/DL (0.60-1.30); GFR ESTIMATED > 60
[2020-02-06 12:05] LABS: BUN/CREATININE RATIO 15
[2020-02-06 12:07] LABS: ALANINE AMINOTRANSFERASE 20 U/L (0-55); LIPASE 7 U/L (8-78)
--- NOTE | 2020-02-06 12:09 | Diagnostic Imaging Report ---
Indication: Nausea, vomiting, abdominal pain. Comparison: None. Findings: 2 views of the abdomen demonstrate mild constipation. No obstruction, ileus or free air. No abnormal calcifications are seen. Osseous structures normal. Cholecystectomy clips are present Impression: Mild constipation Dictated by: Dictated on workstation # [id number]
[2020-02-06] MEDS ORDERED: FLUC100T6 PO ×2 (12:28→12:45)
[2020-02-06 12:55] VITALS: BP 128/80
== END 2020-02-06 12:57 | disposition home or self-care (01) ==
LOC: EDUNIT# 10:40 → ER 10:41
DX: R19.7 Diarrhea, unspecified (principal); Z88.5 Allergy status to narcotic agent; Z88.8 Allergy status to other drugs, medicaments and biological substances; Z77.22 Contact with and (suspected) exposure to environmental tobacco smoke (acute) (chronic); Z82.49 Family history of ischemic heart disease and other diseases of the circulatory system
CPT/HCPCS: 36415; 74018; 80053; 81000; 82150; 83690; 85025; 87088

== ENCOUNTER 2020-05-18 17:15 | Emergency (ER) | payer MEDICARE, MEDICAID ==
[~2020-05-18] VITALS: Ht 180 cm; Wt 114.0 kg
[~2020-05-18 17:15] MED LIST changes: +FLUC100T6 PO
--- NOTE | 2020-05-18 17:55 | ED Lower Extremity ---
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 States that pain started 30ish minutes before she came to the ER. Pain is described as a sharp constant and zinging or burning that extends from her low back all the way down to her toes. She rates the pain as 9/10 and states that movement and standing make the pain worse and that sitting at a slight incline improves the pain. She denies having any sympt oms like this before. She states that she has fibromyalgia, anxiety, insomnia, and sickle cell trait. She also complains of decreased hearing in her right ear, right ear pain and not feeling steady on her feet that started in the last couple of days. Onset: just prior to arrival Pain/Injury Location: bilateral leg, bilateral knee, bilateral thigh, bilateral foot, bilateral ankle, bilateral heel Method of Injury: unknown Modifying Factors: Improves With Movement (worsens ) (SILVESTRE TOLEDO,MED STUDENT) Allergies and Home Medications Allergies Coded Allergies: pregabalin (Verified Adverse Reaction, Intermediate, 12/07/16) Rhabdomyolysis meperidine (Verified Adverse Reaction, Mild, NAUSEA, 12/07/16) morphine (Verified Adverse Reaction, Mild, NAUSEA, 09/13/07) Uncoded Allergies: STEROID PILLS (Allergy, Unknown, 11/15/13) Home Medications Fluconazole 100 Mg Tablet, 100 MG PO ONCE Prescribed by: BAR MINOR on 02/06/20 1245 Methocarbamol 750 Mg Tablet, 750 MG PO Q4H PRN for PAIN-MODERATE (5-7) Prescribed by: RAFA ALVARENGA on 05/18/20 192 Ondansetron 4 Mg Tab.rapdis, 4 MG PO Q6H PRN for NAUSEA/VOMITING Prescribed by: NANCY FLYNN on 08/08/19 1409 Promethazine HCl 25 Mg Tablet, 25 MG PO Q6H PRN for NAUSEA/VOMITING Prescribed by: NANCY FLYNN on 08/08/19 4723 Patient Home Medication List Home Medication List Reviewed: Yes (RAFA ALVARENGA APRN) Review of Systems Constitutional: No chills, No diaphoresis; dizziness; No fever, No malaise, No weakness EENTM: hearing loss (right ear ), ear pain (right ear ); No blurred vision, No double vision, No eye pain, No tearing Respiratory: No cough, No dyspnea on exertion, No short of breath Cardiovascular: No chest pain, No edema, No Hx of Intervention, No palpitations Gastrointestinal: No abdominal pain, No constipation, No diarrhea Genitourinary: No decreased output, No dysuria, No frequency, No incontinence Musculoskeletal: back pain; No muscle pain, No muscle weakness Psychiatric/Neurological: Anxiety, Numbness, Paresthesia, Weakness (SILVESTRE TOLEDO MED STUDENT) Past Nbxlert-Spqfyp-Aqabws Hx Patient Social History Alcohol Use: Denies Use Recreational Drug Use: No Type Used: Cigars 2nd Hand Smoke Exposure: Yes Recent Foreign Travel: No Contact w/Someone Who Travel: No Recent Infectious Disease Expo: No Recent Hopitalizations: No (SILVESTRE TOLEDO MED STUDENT) Immunizations Up To Date Tetanus Booster (TDap): Unknown Date of Influenza Vaccine: May 15, 2016 (SILVESTRE TOLEDO MED STUDENT) Seasonal Allergies Seasonal Allergies: Yes (SILVESTRE TOLEDO MED STUDENT) Past Medical History Surgeries: Yes (TEAR REPAIR AFTER VAG , DX LAP FOR ENDOMETRIOSIS/OVARIAN CYSTS,EGD) Abdominal, Appendectomy, Gallbladder, Hysterectomy, Oophorectomy Respiratory: No Cardiac: Yes High Cholesterol, Hypertension Neurological: Yes Headaches /Migraines 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 Disorders: Yes Female 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 Disorders: 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, 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 Sexually Transmitted Disease: No Genitourinary: No Gastrointestinal: Yes (CHRONIC NAUSEA AND ABDOMINAL PAIN ) Gastroesophageal Reflux, Diverticulosis Musculoskeletal: Yes Fibromyalgia, Chronic Back Pain Endocrine: No HEENT: No Cancer: No Psychosocial: Yes Anxiety, Depression Integumentary: No Blood Disorders: No (SILVESTRE TOLEDO MED STUDENT) Family Medical History Cancer Cataract Family history: Allergy Family history: Arthritis Family history: Asthma Family history: Breast disease Family history: Diabetes mellitus Family history: Hypertension Family history: Osteoporosis Family history: Thyroid disorder Headache Heart disease Hypercholesterolemia Psychotic disorder Seizure disorder No Family History of: Abdominal aortic aneurysm Lenin's disease Alcoholism Aphasia Cancer of colon Chest pain Congenital heart disease Congestive heart failure Cystic fibrosis Dementia Dysphagia Family history: Alzheimer's disease Family history: Cardiovascular disease Family history: Coronary thrombosis Family history: Gastrointestinal disease Family history: Glaucoma Hearing loss Hereditary disease History of - anemia History of - disorder History of - respiratory disease History of drug abuse Human immunodeficiency virus (HIV) seropositivity Infertile Kidney disease Malignant neoplasm of lung Myocardial infarction Parkinson's disease Prostate cancer Stroke Tuberculosis Visual impairment Physical Exam Vital Signs Vital Signs - First Documented 05/18/20 17:25 Temp 37.3 Pulse 98 Resp 18 B/P (MAP) 134/102 (113) Pulse Ox 96 O2 Delivery Room Air (RAFA ALVARENGA APRN) Vital Signs Capillary Refill : Less Than 3 Seconds (SILVESTRE TOLEDO,MED STUDENT) Height, Weight, BMI Height: 5'11.00" Weight: 220lbs. 0oz. 99.393813kp; 35.00 BMI Method:Stated General Appearance: WD/WN, no apparent distress HEENT: PERRL/EOMI, TMs normal, other (erythema and flucuant mass in the right ear canal ) Cardiovascular: regular rate, rhythm, no edema Respiratory: lungs clear, normal breath sounds, no respiratory distress, no accessory muscle use Gastrointestinal: non tender, no organomegaly, distended Legs: bilateral leg limited range of motion, bilateral leg pain, bilateral leg soft tissue tenderness Knees: bilateral knee pain, bilateral knee soft tissue tenderness, bilateral knee swelling Ankles: bilateral ankle limited range of motion, bilateral ankle pain, bilateral ankle soft tissue tenderness Feet: bilateral foot limited range of motion, bilateral foot pain Neurologic/Tendon: no evidence tendon injury, motor deficit (3/5 strengthen testing ), sensory deficit (numbness on the bottom of her feet ) Neurologic/Psychiatric: alert (SILVESTRE TOLEDO,MED STUDENT) Progress/Results/Core Measures Results/Orders Lab Results Laboratory Tests Test 05/18/20 18:40 Range/Units White Blood Count 9.2 4.3-11.0 10^3/uL Red Blood Count 4.41 3.80-5.11 10^6/uL Hemoglobin 12.5 11.5-16.0 g/dL Hematocrit 38 35-52 % Mean Corpuscular Volume 86 80-99 fL Mean Corpuscular Hemoglobin 28 25-34 pg Mean Corpuscular Hemoglobin Concent 33 32-36 g/dL Red Cell Distribution Width 16.9 H 10.0-14.5 % Platelet Count 335 130-400 10^3/uL Mean Platelet Volume 9.2 9.0-12.2 fL Immature Granulocyte % (Auto) 0 % Neutrophils (%) (Auto) 57 42-75 % Lymphocytes (%) (Auto) 33 12-44 % Monocytes (%) (Auto) 7 0-12 % Eosinophils (%) (Auto) 3 0-10 % Basophils (%) (Auto) 1 0-10 % Neutrophils # (Auto) 5.2 1.8-7.8 10^3/uL Lymphocytes # (Auto) 3.0 1.0-4.0 10^3/uL Monocytes # (Auto) 0.7 0.0-1.0 10^3/uL Eosinophils # (Auto) 0.2 0.0-0.3 10^3/uL Basophils # (Auto) 0.1 0.0-0.1 10^3/uL Immature Granulocyte # (Auto) 0.0 0.0-0.1 10^3/uL Erythrocyte Sedimentation Rate 46 H 0-20 MM/HR Sodium Level 140 135-145 MMOL/L Potassium Level 4.1 3.6-5.0 MMOL/L Chloride Level 102 98-107 MMOL/L Carbon Dioxide Level 28 21-32 MMOL/L Anion Gap 10 5-14 MMOL/L Blood Urea Nitrogen 15 7-18 MG/DL Creatinine 1.00 0.60-1.30 MG/DL Estimat Glomerular Filtration Rate > 60 BUN/Creatinine Ratio 15 Glucose Level 86 70-105 MG/DL Calcium Level 9.4 8.5-10.1 MG/DL C-Reactive Protein High Sensitivity 2.56 H 0.00-0.50 MG/DL (RAFA ALVARENGA APRN) My Orders Orders - RAFA ALVARENGA APRN Ketorolac Injection (Toradol Injection) (05/18/20 18:00) Ed Iv/Invasive Line Start (05/18/20 18:02) Cbc With Automated Diff (05/18/20 18:02) Basic Metabolic Panel (05/18/20 18:02) Ns Iv 1000 Ml (Sodium Chloride 0.9%) (05/18/20 18:15) Erythrocyte Sedimentation Rate (05/18/20 18:02) Hs C Reactive Protein (05/18/20 18:02) Ct Thoracic/Lumbar Spine Wo (05/18/20 17:34) Dexamethasone Injection (Decadron Inje (05/18/20 19:30) (RAFA ALVARENGA APRN) Medications Given in ED Current Medications Medications Dose Ordered Sig/Cali Route Start Time Stop Time Status Last Admin Dose Admin Ketorolac Tromethamine 60 mg ONCE ONCE IM 05/18/20 18:00 05/18/20 18:01 DC 05/18/20 18:00 60 MG (RAFA ALVARENGA APRN) Vital Signs/I&O 05/18/20 05/18/20 17:25 18:00 Temp 37.3 37.3 Pulse 98 Resp 18 B/P (MAP) 134/102 (113) Pulse Ox 96 O2 Delivery Room Air (RAFA ALVARENGA APRN) Blood Pressure Mean: 113 Progress Progress Note : Progress Note I have seen and evaluated the patient. This 39yo AA female presents with new onset LBP, and bilateral lower extremity pain and motor weakness that started around 1700 today. Given the distribution of her pain and numbness a lumbar CT will be down. Labs: CBC, BMP, ESR, CRP. (SILVESTRE TOLEDO,MED STUDENT) Departure Communication (Admissions) 1923-resting in bed, feeling better she reports. Will dc to home on robaxin after one dose of IV decadron. (RAFA ALVARENGA APRN) Impression Primary Impression: Back pain Qualified Codes: M54.5 - Low back pain Disposition: HOME, SELF-CARE Condition: Stable Departure-Patient Inst. Decision time for Depature: 19:14 (RAFA ALVARENGA APRN) Referrals: ALLYSON QUIROZ MD (PCP/Family) Primary Care Physician Patient Instructions: Low Back Pain (DC) Scripts Methocarbamol (Robaxin-750) 750 Mg Tablet 750 MG PO Q4H PRN for PAIN-MODERATE (5-7), #14 TAB Prov: RAFA ALVARENGA APRN 05/18/20 SILVESTRE TOLEDO,MED STUDENT May 18, 2020 17:55 RAFA ALVARENGA APRN May 18, 2020 19:15
[2020-05-18] MEDS ORDERED: KETOROLAC 60 MG/2 ML VIAL IM ONE (18:00)
[2020-05-18] MEDS ORDERED: NS IV 1000 ML 1,000 ML IV SCH (18:15)
[2020-05-18 18:50] LABS: BASOPHILS # (AUTO) 0.1 10^3/uL (0.0-0.1); BASOPHILS % (AUTO) 1 % (0-10); EOSINOPHILS # (AUTO) 0.2 10^3/uL (0.0-0.3); EOSINOPHILS % (AUTO) 3 % (0-10); HEMATOCRIT 38 % (35-52); HEMOGLOBIN 12.5 g/dL (11.5-16.0); LYMPHOCYTES % (AUTO) 33 % (12-44); MEAN CORPUSCULAR HEMOGLOBIN 28 pg (25-34); MEAN CORPUSCULAR HGB CONC 33 g/dL (32-36); MEAN CORPUSCULAR VOLUME 86 fL (80-99); MEAN PLATELET VOLUME 9.2 fL (9.0-12.2); MONOCYTES # (AUTO) 0.7 10^3/uL (0.0-1.0); MONOCYTES % (AUTO) 7 % (0-12); NEUTROPHILS # (AUTO) 5.2 10^3/uL (1.8-7.8); NEUTROPHILS % (AUTO) 57 % (42-75); PLATELET COUNT 335 10^3/uL (130-400); WHITE BLOOD COUNT 9.2 10^3/uL (4.3-11.0)
[2020-05-18 19:00] LABS: CHLORIDE 102 MMOL/L (98-107); POTASSIUM 4.1 MMOL/L (3.6-5.0); SODIUM 140 MMOL/L (135-145)
[2020-05-18 19:01] LABS: CALCIUM 9.4 MG/DL (8.5-10.1); GLUCOSE 86 MG/DL (70-105)
[2020-05-18 19:03] LABS: CARBON DIOXIDE 28 MMOL/L (21-32)
[2020-05-18 19:05] LABS: GFR ESTIMATED > 60
--- NOTE | 2020-05-18 19:05 | Diagnostic Imaging Report ---
INDICATION: Legs gave out, fell when getting out of bed. Pain. EXAMINATION: Thoracic and lumbar spine, 05/18/2020. All CT scans use one or more of the following dose optimizing techniques: automated exposure control, MA and/or KvP adjustment based on patient size and exam type or iterative reconstruction. COMPARISON: Previous examination dated 11/15/2013. FINDINGS: Alignment of the thoracic and lumbar spine is preserved. No fracture is identified. No compression deformity appreciated with no significant subluxation seen. The visualized intra-abdominal and thoracic structures are unremarkable for acute abnormality. There is bibasilar dependent atelectasis in the lungs, right worse than left. IMPRESSION: No acute abnormality with incidental findings as above. Dictated by: Dictated on workstation # [id number]
[2020-05-18 19:06] LABS: BUN/CREATININE RATIO 15
[2020-05-18] MEDS ORDERED: PRD20T PO (19:15)
[2020-05-18 19:19] LABS: ERYTHROCYTE SEDIMENTATION RATE 46 MM/HR (0-20)
[2020-05-18] MEDS ORDERED: METH-313 PO (19:22)
[2020-05-18 19:38] VITALS: BP 107/69
== END 2020-05-18 19:38 | disposition home or self-care (01) ==
LOC: EDUNIT# 17:15 → ER 17:16
DX: M54.5 Low back pain (principal); I10 Essential (primary) hypertension; M79.7 Fibromyalgia; G89.29 Other chronic pain; M54.9 Dorsalgia, unspecified; Z88.5 Allergy status to narcotic agent; Z88.8 Allergy status to other drugs, medicaments and biological substances; Z77.22 Contact with and (suspected) exposure to environmental tobacco smoke (acute) (chronic); Z82.49 Family history of ischemic heart disease and other diseases of the circulatory system; W06.XXXA Fall from bed, initial encounter
CPT/HCPCS: 36415; 72128; 72131; 80048; 85025; 85652; 86141

== ENCOUNTER → 2020-06-01 | Outpatient (CLI) | payer MEDICARE, MEDICAID ==
[~2020-06-01] MED LIST changes: +GADOBUTROL 15 MMOL/15 ML (GADAVIST) VIAL IV ONE; +METH-313 PO; +PRD20T PO
--- NOTE | 2020-06-01 09:44 | Diagnostic Imaging Report ---
EXAMINATION: MR imaging brain with and without contrast. TECHNIQUE: Multiplanar, multisequence MR imaging of the brain was performed with and without contrast. HISTORY: Right-sided hemiparesis and weakness. COMPARISON: None available. FINDINGS: The ventricles and sulci are normal. There are no areas of abnormal signal alteration of the brain parenchyma. There are no extra-axial fluid collections. There are no areas of restricted diffusion or evidence of acute stroke. No abnormal parenchymal or meningeal enhancement. Flow voids are normal for major intracranial arteries and dural venous sinuses. The visualized paranasal sinuses are normal. There is a small left mastoid effusion. The orbits are normal. IMPRESSION: 1. No acute intracranial abnormality. Dictated by: Dictated on workstation # [id number]
== END ==
LOC: RAD 08:39
DX: G81.01 Flaccid hemiplegia affecting right dominant side (principal)
CPT/HCPCS: 70553

== ENCOUNTER 2020-06-29 11:51 | Emergency (ER) | payer MEDICARE, MEDICAID ==
[~2020-06-29] VITALS: Ht 180 cm; Wt 118.8 kg
[~2020-06-29 11:51] MED LIST changes: -GADOBUTROL 15 MMOL/15 ML (GADAVIST) VIAL IV ONE; +NABU-90 PO; -NABU750T PO
--- NOTE | 2020-06-29 12:23 | ED General ---
General Stated Complaint: HIGH BLOOD SUGAR,DIZZINESS,TIRED Source of Information: Patient Exam Limitations: No Limitations History of Present Illness Date Seen by Provider: Jun 29, 2020 Time Seen by Provider: 12:23 Initial Comments To ER with reports of feeling tired. She has a history of chronic fatigue syndrome and fibromyalgia. She is also concerned because her blood sugar arnol from 110-230 after eating a corn dog. Timing/Duration: 4-6 Hours Severity: Moderate Associated Systoms: Denies Symptoms Allergies and Home Medications Allergies Coded Allergies: pregabalin (Verified Adverse Reaction, Intermediate, 12/07/16) Rhabdomyolysis meperidine (Verified Adverse Reaction, Mild, NAUSEA, 12/07/16) morphine (Verified Adverse Reaction, Mild, NAUSEA, 09/13/07) Uncoded Allergies: STEROID PILLS (Allergy, Unknown, 11/15/13) Home Medications Fluconazole 100 Mg Tablet, 100 MG PO ONCE Prescribed by: BAR MINOR on 02/06/20 1245 Methocarbamol 750 Mg Tablet, 750 MG PO Q4H PRN for PAIN-MODERATE (5-7) Prescribed by: RAFA ALVARENGA on 05/18/20 1922 Ondansetron 4 Mg Tab.rapdis, 4 MG PO Q6H PRN for NAUSEA/VOMITING Prescribed by: NANCY FLYNN on 08/08/19 1409 Promethazine HCl 25 Mg Tablet, 25 MG PO Q6H PRN for NAUSEA/VOMITING Prescribed by: NANCY FLYNN on 08/08/19 1409 Patient Home Medication List Home Medication List Reviewed: Yes Review of Systems Review of Systems Constitutional: see HPI EENTM: see HPI Respiratory: no symptoms reported Cardiovascular: no symptoms reported Genitourinary: no symptoms reported Musculoskeletal: no symptoms reported Skin: no symptoms reported Psychiatric/Neurological: No Symptoms Reported Hematologic/Lymphatic: No Symptoms Reported Past Lxqgsdk-Ybnpvq-Rlrzav Hx Patient Social History Type Used: Cigars 2nd Hand Smoke Exposure: Yes Recent Foreign Travel: No Contact w/Someone Who Travel: No Recent Hopitalizations: No Immunizations Up To Date Tetanus Booster (TDap): Unknown Date of Influenza Vaccine: May 15, 2016 Seasonal Allergies Seasonal Allergies: Yes Past Medical History Surgeries: Yes (TEAR REPAIR AFTER VAG , DX LAP FOR ENDOMETRIOSIS/OVARIAN CYSTS,EGD) Abdominal, Appendectomy, Gallbladder, Hysterectomy, Oophorectomy Respiratory: No Cardiac: Yes High Cholesterol, Hypertension Neurological: Yes Headaches /Migraines 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 Disorders: Yes Female 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 Disorders: 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, 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 Sexually Transmitted Disease: No Genitourinary: No Gastrointestinal: Yes (CHRONIC NAUSEA AND ABDOMINAL PAIN ) Gastroesophageal Reflux, Diverticulosis Musculoskeletal: Yes Fibromyalgia, Chronic Back Pain Endocrine: No HEENT: No Cancer: No Psychosocial: Yes Anxiety, Depression Integumentary: No Blood Disorders: No Family Medical History Cancer Cataract Family history: Allergy Family history: Arthritis Family history: Asthma Family history: Breast disease Family history: Diabetes mellitus Family history: Hypertension Family history: Osteoporosis Family history: Thyroid disorder Headache Heart disease Hypercholesterolemia Psychotic disorder Seizure disorder No Family History of: Abdominal aortic aneurysm [place]'s disease Alcoholism Aphasia Cancer of colon Chest pain Congenital heart disease Congestive heart failure Cystic fibrosis Dementia Dysphagia Family history: Alzheimer's disease Family history: Cardiovascular disease Family history: Coronary thrombosis Family history: Gastrointestinal disease Family history: Glaucoma Hearing loss Hereditary disease History of - anemia History of - disorder History of - respiratory disease History of drug abuse Human immunodeficiency virus (HIV) seropositivity Infertile Kidney disease Malignant neoplasm of lung Myocardial infarction Parkinson's disease Prostate cancer Stroke Tuberculosis Visual impairment Physical Exam Vital Signs Vital Signs - First Documented 06/29/20 12:17 Temp 36.4 Pulse 94 Resp 18 B/P (MAP) 128/85 (99) Pulse Ox 95 O2 Delivery Room Air Capillary Refill : Height, Weight, BMI Height: 5'11.00" Weight: 220lbs. 0oz. 99.791917ho; 35.00 BMI Method:Stated General Appearance: No Apparent Distress, WD/WN Eyes: Bilateral Eye Normal Inspection, Bilateral Eye PERRL Neck: Full Range of Motion, Normal Inspection Respiratory: No Accessory Muscle Use, No Respiratory Distress Cardiovascular: Regular Rate, Rhythm, Normal Peripheral Pulses Gastrointestinal: Normal Bowel Sounds, Non Tender, Soft Extremity: Normal Capillary Refill, Normal Inspection Neurologic/Psychiatric: Alert, Oriented x3 Skin: Normal Color, Warm/Dry Progress/Results/Core Measures Suspected Sepsis SIRS Temperature: Pulse: Respiratory Rate: Laboratory Tests 06/29/20 12:20: White Blood Count 9.0 Blood Pressure / Mean: Laboratory Tests 06/29/20 12:20: Creatinine 0.97, Platelet Count 331, Total Bilirubin 0.2 Results/Orders Lab Results Laboratory Tests Test 06/29/20 12:20 06/29/20 12:21 06/29/20 13:17 Range/Units White Blood Count 9.0 4.3-11.0 10^3/uL Red Blood Count 4.54 3.80-5.11 10^6/uL Hemoglobin 12.7 11.5-16.0 g/dL Hematocrit 40 35-52 % Mean Corpuscular Volume 88 80-99 fL Mean Corpuscular Hemoglobin 28 25-34 pg Mean Corpuscular Hemoglobin Concent 32 32-36 g/dL Red Cell Distribution Width 17.2 H 10.0-14.5 % Platelet Count 331 130-400 10^3/uL Mean Platelet Volume 9.3 9.0-12.2 fL Immature Granulocyte % (Auto) 0 % Neutrophils (%) (Auto) 65 42-75 % Lymphocytes (%) (Auto) 26 12-44 % Monocytes (%) (Auto) 7 0-12 % Eosinophils (%) (Auto) 2 0-10 % Basophils (%) (Auto) 1 0-10 % Neutrophils # (Auto) 5.8 1.8-7.8 10^3/uL Lymphocytes # (Auto) 2.3 1.0-4.0 10^3/uL Monocytes # (Auto) 0.6 0.0-1.0 10^3/uL Eosinophils # (Auto) 0.1 0.0-0.3 10^3/uL Basophils # (Auto) 0.1 0.0-0.1 10^3/uL Immature Granulocyte # (Auto) 0.0 0.0-0.1 10^3/uL Sodium Level 140 135-145 MMOL/L Potassium Level 3.9 3.6-5.0 MMOL/L Chloride Level 104 98-107 MMOL/L Carbon Dioxide Level 26 21-32 MMOL/L Anion Gap 10 5-14 MMOL/L Blood Urea Nitrogen 19 H 7-18 MG/DL Creatinine 0.97 0.60-1.30 MG/DL Estimat Glomerular Filtration Rate > 60 BUN/Creatinine Ratio 20 Glucose Level 107 H 70-105 MG/DL Calcium Level 8.9 8.5-10.1 MG/DL Corrected Calcium 8.7 8.5-10.1 MG/DL Total Bilirubin 0.2 0.1-1.0 MG/DL Aspartate Amino Transf (AST/SGOT) 18 5-34 U/L Alanine Aminotransferase (ALT/SGPT) 28 0-55 U/L Alkaline Phosphatase 169 H 40-136 U/L Total Protein 7.9 6.4-8.2 GM/DL Albumin 4.2 3.2-4.5 GM/DL Thyroid Stimulating Hormone (TSH) 0.55 0.35-4.94 UIU/ML Free Thyroxine 1.07 0.70-1.48 NG/DL Serum Test, Qualitative NEGATIVE NEGATIVE Glucometer 110 70-110 MG/DL Urine Color YELLOW Urine Clarity SL CLOUDY Urine pH 5.5 5-9 Urine Specific [place] >=1.030 1.016-1.022 Urine Protein NEGATIVE NEGATIVE Urine Glucose (UA) NEGATIVE NEGATIVE Urine Ketones NEGATIVE NEGATIVE Urine Nitrite POSITIVE H NEGATIVE Urine Bilirubin NEGATIVE NEGATIVE Urine Urobilinogen 0.2 < = 1.0 MG/DL Urine Leukocyte Esterase 1+ H NEGATIVE Urine RBC (Auto) NEGATIVE NEGATIVE Urine RBC NONE /HPF Urine WBC 25-50 H /HPF Urine Squamous Epithelial Cells 10-25 H /HPF Urine Crystals NONE /LPF Urine Bacteria MODERATE H /HPF Urine Casts NONE /LPF Urine Mucus SMALL H /LPF Urine Culture Indicated YES My Orders Orders - RAFA ALVARENGA APRN Cbc With Automated Diff (06/29/20 12:20) Comprehensive Metabolic Panel (06/29/20 12:20) Ua Culture If Indicated (06/29/20 12:20) Ed Iv/Invasive Line Start (06/29/20 12:20) Accucheck Stat ONCE (06/29/20 12:20) Thyroid Stimulating Hormone (06/29/20 12:20) Free T4 (Free Thyroxine) (06/29/20 12:20) Hcg,Qualitative Serum (06/29/20 12:20) Urine Culture (06/29/20 13:17) Vital Signs/I&O 06/29/20 12:17 Temp 36.4 Pulse 94 Resp 18 B/P (MAP) 128/85 (99) Pulse Ox 95 O2 Delivery Room Air Capillary Refill : Departure Impression Primary Impression: Urinary tract infectious disease Disposition: 01 HOME, SELF-CARE Condition: Stable Departure-Patient Inst. Decision time for Depature: 13:34 Referrals: ALLYSON QUIROZ MD (PCP/Family) Primary Care Physician Patient Instructions: Urinary Tract Infection, Adult (DC) Add. Discharge Instructions: 1. Return to ER for any concerns 2. Antibiotics as directed Scripts Cefuroxime Axetil (Cefuroxime) 250 Mg Tablet 250 MG PO BID, #10 TAB Prov: RAFA ALVARENGA APRN 06/29/20 RAFA ALVARENGA APRN Jun 29, 2020 12:23
[2020-06-29 12:33] LABS: BASOPHILS # (AUTO) 0.1 10^3/uL (0.0-0.1); BASOPHILS % (AUTO) 1 % (0-10); EOSINOPHILS # (AUTO) 0.1 10^3/uL (0.0-0.3); EOSINOPHILS % (AUTO) 2 % (0-10); HEMATOCRIT 40 % (35-52); HEMOGLOBIN 12.7 g/dL (11.5-16.0); LYMPHOCYTES # (AUTO) 2.3 10^3/uL (1.0-4.0); LYMPHOCYTES % (AUTO) 26 % (12-44); MEAN CORPUSCULAR HEMOGLOBIN 28 pg (25-34); MEAN CORPUSCULAR HGB CONC 32 g/dL (32-36); MEAN CORPUSCULAR VOLUME 88 fL (80-99); MEAN PLATELET VOLUME 9.3 fL (9.0-12.2); MONOCYTES # (AUTO) 0.6 10^3/uL (0.0-1.0); MONOCYTES % (AUTO) 7 % (0-12); NEUTROPHILS # (AUTO) 5.8 10^3/uL (1.8-7.8); NEUTROPHILS % (AUTO) 65 % (42-75); PLATELET COUNT 331 10^3/uL (130-400)
[2020-06-29 12:40] LABS: ALBUMIN 4.2 GM/DL (3.2-4.5); CHLORIDE 104 MMOL/L (98-107); POTASSIUM 3.9 MMOL/L (3.6-5.0); SODIUM 140 MMOL/L (135-145)
[2020-06-29 12:41] LABS: CALCIUM 8.9 MG/DL (8.5-10.1)
[2020-06-29 12:42] LABS: GLUCOSE 107 MG/DL (70-105)
[2020-06-29 12:43] LABS: TOTAL PROTEIN 7.9 GM/DL (6.4-8.2)
[2020-06-29 12:44] LABS: BILIRUBIN,TOTAL 0.2 MG/DL (0.1-1.0); CARBON DIOXIDE 26 MMOL/L (21-32)
[2020-06-29 12:46] LABS: ALKALINE PHOSPHATASE 169 U/L (40-136); CREATININE SERUM 0.97 MG/DL (0.60-1.30); GFR ESTIMATED > 60
[2020-06-29 12:47] LABS: BUN/CREATININE RATIO 20
[2020-06-29 12:49] LABS: ALANINE AMINOTRANSFERASE 28 U/L (0-55)
[2020-06-29 13:10] LABS: FREE T4 (FREE THYROXINE) 1.07 NG/DL (0.70-1.48)
[2020-06-29 13:24] LABS: BILIRUBIN,URINE NEGATIVE (NEGATIVE); CLARITY,URINE SL CLOUDY; COLOR,URINE YELLOW; GLUCOSE, URINE (UA) NEGATIVE (NEGATIVE); KETONES,URINE NEGATIVE (NEGATIVE); LEUKOCYTE ESTERASE ,URINE 1+ (NEGATIVE); NITRITE,URINE POSITIVE (NEGATIVE); PH,URINE 5.5 (5-9); PROTEIN,URINE NEGATIVE (NEGATIVE)
[2020-06-29 13:32] LABS: BACTERIA,URINE MODERATE /HPF; WBC,URINE 25-50 /HPF
[2020-06-29] MEDS ORDERED: CEFU250T80 PO (13:35)
[2020-06-29 13:49] VITALS: BP 120/75
== END 2020-06-29 13:49 | disposition home or self-care (01) ==
LOC: EDUNIT# 11:51 → ER 11:53
DX: N39.0 Urinary tract infection, site not specified (principal); Z82.61 Family history of arthritis; Z82.49 Family history of ischemic heart disease and other diseases of the circulatory system; Z83.3 Family history of diabetes mellitus; Z80.9 Family history of malignant neoplasm, unspecified; Z77.22 Contact with and (suspected) exposure to environmental tobacco smoke (acute) (chronic); Z88.5 Allergy status to narcotic agent; Z88.8 Allergy status to other drugs, medicaments and biological substances
CPT/HCPCS: 36415; 80053; 81000; 82962; 84439; 84443; 84703; 85025; 87077; 87088; 87186

== ENCOUNTER 2020-08-19 08:42 | Emergency (ER) | payer MEDICARE, MEDICAID ==
[~2020-08-19] VITALS: Ht 180.3 cm; Wt 128.0 kg
[~2020-08-19 08:42] MED LIST changes: +CEFU250T80 PO
[2020-08-19 09:13] LABS: BASOPHILS # (AUTO) 0.1 10^3/uL (0.0-0.1); BASOPHILS % (AUTO) 1 % (0-10); EOSINOPHILS # (AUTO) 0.2 10^3/uL (0.0-0.3); EOSINOPHILS % (AUTO) 2 % (0-10); HEMATOCRIT 42 % (35-52); HEMOGLOBIN 13.3 g/dL (11.5-16.0); LYMPHOCYTES # (AUTO) 2.7 10^3/uL (1.0-4.0); LYMPHOCYTES % (AUTO) 26 % (12-44); MEAN CORPUSCULAR HEMOGLOBIN 28 pg (25-34); MEAN CORPUSCULAR HGB CONC 32 g/dL (32-36); MEAN CORPUSCULAR VOLUME 88 fL (80-99); MEAN PLATELET VOLUME 9.3 fL (9.0-12.2); MONOCYTES # (AUTO) 0.6 10^3/uL (0.0-1.0); MONOCYTES % (AUTO) 6 % (0-12); NEUTROPHILS # (AUTO) 6.7 10^3/uL (1.8-7.8); NEUTROPHILS % (AUTO) 65 % (42-75); PLATELET COUNT 302 10^3/uL (130-400); WHITE BLOOD COUNT 10.3 10^3/uL (4.3-11.0)
[2020-08-19 09:22] LABS: ALBUMIN 4.1 GM/DL (3.2-4.5); CHLORIDE 100 MMOL/L (98-107); POTASSIUM 4.2 MMOL/L (3.6-5.0); SODIUM 140 MMOL/L (135-145)
[2020-08-19 09:23] LABS: CALCIUM 9.2 MG/DL (8.5-10.1)
[2020-08-19 09:25] LABS: GLUCOSE 92 MG/DL (70-105); TOTAL PROTEIN 7.9 GM/DL (6.4-8.2)
[2020-08-19 09:26] LABS: CARBON DIOXIDE 28 MMOL/L (21-32)
[2020-08-19 09:27] LABS: BILIRUBIN,TOTAL 0.2 MG/DL (0.1-1.0)
[2020-08-19 09:28] LABS: ALKALINE PHOSPHATASE 153 U/L (40-136); CREATININE SERUM 0.91 MG/DL (0.60-1.30); GFR ESTIMATED > 60
--- NOTE | 2020-08-19 09:28 | ED Chest Pain ---
General Chief Complaint: Chest Pain Stated Complaint: CP,BILAT FEET SWOLLEN Nursing Triage Note: AMB TO ROOM WITH C/O FEET SWOLLEN FOR 3 DAYS AND ONSET OF CHEST PAIN IN MIDDLE OF CHEST THIS AM. Nursing Sepsis Screen: No Definite Risk (LISETTE GOODRICH MED STUDENT) History of Present Illness Date Seen by Provider: Aug 19, 2020 Time Seen by Provider: 09:10 Initial Comments This 40 y/o F drove herself to the Emergency Department with a chief complaint of swollen feet and chest pain. Her feet had been swollen for 3d and her chest pain began this morning. The chest pain is a shooting nonradiating 7/10 pain. The patient states it hurts with inspiration. She has a headache and dizziness but denies vision changes, pain in abdomen, or hearing changes. She states that sleeping in bed made her symptoms worse and had to sleep in a recliner. She denies a history of heart conditions and has had no previous occurrences. She states she has recently started drinking gatorade and electrolyte drinks for dehydration within the past 2d. A stress test was preformed in 2014 and showed no significant findings. She states yesterday her left side went numb and she collapsed. She has had previous occurrences and discussed this with her doctor and was negative for stroke. She is not concerned with this today. (LISETTE GOODRICH MED STUDENT) Initial Comments Patient reports her left leg numbness is position related and is worse when she is lying flat in bed. On exam she has some mild epigastric tenderness. By description her symptoms are suspicious for acid reflux. (JENNA RAGLAND MD) Allergies and Home Medications Allergies Coded Allergies: pregabalin (Verified Adverse Reaction, Intermediate, 12/07/16) Rhabdomyolysis meperidine (Verified Adverse Reaction, Mild, NAUSEA, 12/07/16) morphine (Verified Adverse Reaction, Mild, NAUSEA, 09/13/07) Uncoded Allergies: STEROID PILLS (Allergy, Unknown, 11/15/13) Home Medications Cefuroxime Axetil 250 Mg Tablet, 250 MG PO BID Prescribed by: RAFA ALVARENGA on 06/29/20 1335 Fluconazole 100 Mg Tablet, 100 MG PO ONCE Prescribed by: BAR MINOR on 02/06/20 1245 Methocarbamol 750 Mg Tablet, 750 MG PO Q4H PRN for PAIN-MODERATE (5-7) Prescribed by: RAFA ALVARENGA on 05/18/201921 Ondansetron 4 Mg Tab.rapdis, 4 MG PO Q6H PRN for NAUSEA/VOMITING Prescribed by: NANCY FLYNN on 08/08/19 1409 Promethazine HCl 25 Mg Tablet, 25 MG PO Q6H PRN for NAUSEA/VOMITING Prescribed by: NANCY FLYNN on 08/08/19 1409 Sucralfate 1 Gm Tablet, 1 GM PO QID Crush and mix with 5 to 10 mL water to create slurry. Take 30-min before meals and bedtime. Prescribed by: JENNA MCDANIELS on 08/19/20 1230 Patient Home Medication List Home Medication List Reviewed: Yes (JENNA RAGLAND MD) Review of Systems Review of Systems Constitutional: dizziness EENTM: No Blurred Vision, No Double Vision Cardiovascular: Chest Pain, Edema, Irregular Heart Rate, Lightheadedness Gastrointestinal: Denies Abdominal Pain Psychiatric/Neurological: Headache (LISETTE GOODRICH STUDENT) Respiratory: No Symptoms Reported Genitourinary: No Symptoms Reported Musculoskeletal: no symptoms reported Skin: no symptoms reported Psychiatric/Neurological: No Symptoms Reported Endocrine: No Symptoms Reported Hematologic/Lymphatic: No Symptoms Reported (JENNA RAGLAND MD) Past Tmetcrr-Wiisdg-Qhwfon Hx Patient Social History Alcohol Use: Denies Use Recreational Drug Use: No Smoking Status: Current Everyday Smoker Type Used: Cigars 2nd Hand Smoke Exposure: Yes Recent Foreign Travel: No Contact w/Someone Who Travel: No Recent Infectious Disease Expo: No Recent Hopitalizations: No (LISETTE GOODRICH) Immunizations Up To Date Tetanus Booster (TDap): Unknown Date of Influenza Vaccine: May 15, 2016 (LISETTE GOODRICH STUDENT) Seasonal Allergies Seasonal Allergies: Yes (LISETTE GOODRICH) Past Medical History Surgeries: Yes (TEAR REPAIR AFTER VAG , DX LAP FOR ENDOMETRIOSIS/OVARIAN CYSTS,EGD) Abdominal, Appendectomy, Gallbladder, Hysterectomy, Oophorectomy Respiratory: No Cardiac: Yes High Cholesterol, Hypertension Neurological: Yes Headaches /Migraines 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 Disorders: Yes Female 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 Disorders: 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, 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 Sexually Transmitted Disease: No Genitourinary: No Gastrointestinal: Yes (CHRONIC NAUSEA AND ABDOMINAL PAIN ) Gastroesophageal Reflux, Diverticulosis Musculoskeletal: Yes Fibromyalgia, Chronic Back Pain Endocrine: Yes Diabetes, Non-Insulin dep HEENT: No Cancer: No Psychosocial: Yes Anxiety, Depression Integumentary: No Blood Disorders: No (LISETTE GOODRICH MED STUDENT) Family Medical History Cancer Cataract Family history: Allergy Family history: Arthritis Family history: Asthma Family history: Breast disease Family history: Diabetes mellitus Family history: Hypertension Family history: Osteoporosis Family history: Thyroid disorder Headache Heart disease Hypercholesterolemia Psychotic disorder Seizure disorder No Family History of: Abdominal aortic aneurysm [place]'s disease Alcoholism Aphasia Cancer of colon Chest pain Congenital heart disease Congestive heart failure Cystic fibrosis Dementia Dysphagia Family history: Alzheimer's disease Family history: Cardiovascular disease Family history: Coronary thrombosis Family history: Gastrointestinal disease Family history: Glaucoma Hearing loss Hereditary disease History of - anemia History of - disorder History of - respiratory disease History of drug abuse Human immunodeficiency virus (HIV) seropositivity Infertile Kidney disease Malignant neoplasm of lung Myocardial infarction Parkinson's disease Prostate cancer Stroke Tuberculosis Visual impairment Physical Exam Vital Signs Vital Signs - First Documented 08/19/20 08/19/20 08:47 13:09 Temp 35.7 Pulse 85 Resp 18 B/P (MAP) 124/87 (99) Pulse Ox 97 O2 Delivery Room Air (JENNA RAGLAND MD) Vital Signs Capillary Refill : Less Than 3 Seconds (LISETTE GOODRICH MED STUDENT) Height, Weight, BMI Height: 5'11.00" Weight: 220lbs. 0oz. 99.978876yd; 39.00 BMI Method:Stated General Appearance: WD/WN, Mild Distress Respiratory: Lungs Clear, Normal Breath Sounds, No Accessory Muscle Use, No Respiratory Distress Cardiovascular: Regular Rate, Rhythm Gastrointestinal: Non Tender, Soft Extremity: Pedal Edema, Swelling Neurologic/Psychiatric: Alert, Normal Mood/Affect Skin: Normal Color, Warm/Dry (LSIETTE GOODRICH MED STUDENT) Progress/Results/Core Measures Results/Orders Lab Results Laboratory Tests Test 08/19/20 04:50 08/19/20 08:58 08/19/20 11:50 Range/Units Lipase 8 8-78 U/L White Blood Count 10.3 4.3-11.0 10^3/uL Red Blood Count 4.74 3.80-5.11 10^6/uL Hemoglobin 13.3 11.5-16.0 g/dL Hematocrit 42 35-52 % Mean Corpuscular Volume 88 80-99 fL Mean Corpuscular Hemoglobin 28 25-34 pg Mean Corpuscular Hemoglobin Concent 32 32-36 g/dL Red Cell Distribution Width 17.4 H 10.0-14.5 % Platelet Count 302 130-400 10^3/uL Mean Platelet Volume 9.3 9.0-12.2 fL Immature Granulocyte % (Auto) 1 % Neutrophils (%) (Auto) 65 42-75 % Lymphocytes (%) (Auto) 26 12-44 % Monocytes (%) (Auto) 6 0-12 % Eosinophils (%) (Auto) 2 0-10 % Basophils (%) (Auto) 1 0-10 % Neutrophils # (Auto) 6.7 1.8-7.8 10^3/uL Lymphocytes # (Auto) 2.7 1.0-4.0 10^3/uL Monocytes # (Auto) 0.6 0.0-1.0 10^3/uL Eosinophils # (Auto) 0.2 0.0-0.3 10^3/uL Basophils # (Auto) 0.1 0.0-0.1 10^3/uL Immature Granulocyte # (Auto) 0.1 0.0-0.1 10^3/uL Prothrombin Time 13.4 12.2-14.7 SEC INR Comment 1.0 0.8-1.4 Activated Partial Thromboplast Time 29 24-35 SEC Sodium Level 140 135-145 MMOL/L Potassium Level 4.2 3.6-5.0 MMOL/L Chloride Level 100 98-107 MMOL/L Carbon Dioxide Level 28 21-32 MMOL/L Anion Gap 12 5-14 MMOL/L Blood Urea Nitrogen 11 7-18 MG/DL Creatinine 0.91 0.60-1.30 MG/DL Estimat Glomerular Filtration Rate > 60 BUN/Creatinine Ratio 12 Glucose Level 92 70-105 MG/DL Calcium Level 9.2 8.5-10.1 MG/DL Corrected Calcium 9.1 8.5-10.1 MG/DL Magnesium Level 2.5 H 1.6-2.4 MG/DL Total Bilirubin 0.2 0.1-1.0 MG/DL Aspartate Amino Transf (AST/SGOT) 34 5-34 U/L Alanine Aminotransferase (ALT/SGPT) 57 H 0-55 U/L Alkaline Phosphatase 153 H 40-136 U/L Myoglobin 53.8 10.0-92.0 NG/ML Troponin I < 0.028 < 0.028 <0.028 NG/ML B-Type Natriuretic Peptide < 10.0 <100.0 PG/ML Total Protein 7.9 6.4-8.2 GM/DL Albumin 4.1 3.2-4.5 GM/DL (JENNA RAGLAND MD) My Orders Orders - JENNA RAGLAND MD Cbc With Automated Diff (08/19/20 09:06) Magnesium (08/19/20 09:06) Chest 1 View, Ap/Pa Only (08/19/20 09:06) Ekg Tracing (08/19/20 09:06) Comprehensive Metabolic Panel (08/19/20 09:06) Myoglobin Serum (08/19/20 09:06) Protime With Inr (08/19/20 09:06) Partial Thromboplastin Time (08/19/20 09:06) O2 (08/19/20 09:06) Monitor-Rhythm Ecg Trace Only (08/19/20 09:06) Ed Iv/Invasive Line Start (08/19/20 09:06) BNP (08/19/20 09:06) Troponin I (08/19/20 08:58) Troponin I (08/19/20 11:45) Ondansetron Injection (Zofran Injectio (08/19/20 11:45) Lidocaine 2% Viscous 15 Ml (Xylocaine Vi (08/19/20 11:45) Antacid Suspension (Mylanta Suspension (08/19/20 11:45) Lipase (08/19/20 12:23) (JENNA RAGLAND MD) Medications Given in ED Current Medications Medications Dose Ordered Sig/Cali Route Start Time Stop Time Status Last Admin Dose Admin Al Hydrox/Mg Hydrox/Simethicone 30 ml ONCE ONCE PO 08/19/20 11:45 08/19/20 11:46 DC 08/19/20 12:02 30 ML Lidocaine HCl 15 ml ONCE ONCE PO 08/19/20 11:45 08/19/20 11:46 DC 08/19/20 12:03 15 ML Ondansetron HCl 4 mg ONCE ONCE IVP 08/19/20 11:45 08/19/20 11:46 DC 08/19/20 11:51 4 MG (JENNA RAGLAND MD) Vital Signs/I&O 08/19/20 08/19/20 08:47 13:09 Temp 35.7 Pulse 85 89 Resp 18 18 B/P (MAP) 124/87 (99) 130/92 Pulse Ox 97 O2 Delivery Room Air Room Air (JENNA RAGLAND MD) Blood Pressure Mean: 99 Progress Progress Note : Time: 09:30 Progress Note - EKG obtained and showed no abnormal findings. Cardiac panel, BNP, lipid panel, PT, INR, and CBC has been ordered, results pending. A CXR has been ordered. 11:30 AM - The patient's labs showed no abnormalities. (LISETTE GOODRICH MED STUDENT) Progress Note : Time: 12:36 Progress Note Patient's chest pain seemed atypical in nature. She had mild epigastric tenderness on palpation. GI cocktail was administered which did improve her pain. Repeat troponin was negative. Lipase was also added. We will discharge home assuming lipase is normal. I have added Carafate to her omeprazole. See prescription. We also discussed her edema. She may need her Lasix dosing adjusted with her primary care provider. I have also suggested elevating her feet at rest and possibly using compression stockings. We did discuss her positional numbness of her leg a little bit as well. She was advised to follow up with her primary care provider regarding work-up for this as she may need an MRI for further evaluation. (JENNA RAGLAND MD) Initial ECG Impression Date: Aug 19, 2020 Initial ECG Impression Time: 08:53 Initial ECG Rate: 87 Initial ECG Rhythm: Normal Sinus Initial ECG Intervals: Normal Initial ECG Impression: Normal Comment Normal sinus rhythm with no ST elevation or depression. No abnormal intervals or axis deviation. (JENNA RAGLAND MD) Diagnostic Imaging Diagonstic Imaging: Xray Plain Films/CT/US/NM/MRI: chest Comments Chest x-ray reviewed by me and report reviewed. See report below: NAME: BAL[facility]WARDS [facility] REC#: [id number] PT STATUS: DEP ER : 1980 PHYSICIAN: JENNA RAGLAND MD ADMIT DATE: 08/19/20/ER Signed Date of Exam:08/19/20 CHEST 1 VIEW, AP/PA ONLY INDICATION: Chest pain. TECHNIQUE: Single view chest 9:23 AM. CORRELATION STUDY: 08/08/2019 FINDINGS: Heart size and mediastinal configuration appear generally stable. The lungs are clear with no consolidating infiltrate. There is no significant effusion or pneumothorax. IMPRESSION: 1. Negative for acute abnormality of the chest. Dictated by: Dictated on workstation # [id number] Dict: 08/19/20930 Trans: 08/19/20 1522 [id number] Interpreted by: CHASITY FIERRO DO Electronically signed by: CHASITY FIERRO DO 08/19/20 1522 (JENNA RAGLAND MD) Departure Impression Primary Impression: Atypical chest pain Additional Impressions: Epigastric pain Edema Qualified Codes: R60.0 - Localized edema Disposition: HOME, SELF-CARE Condition: Improved Departure-Patient Inst. Decision time for Depature: 12:25 (JENNA RAGLAND MD) Referrals: ALLYSON QUIROZ MD (PCP/Family) Primary Care Physician Patient Instructions: Acid Reflux and Gastroesophageal Reflux Disease in Adults, Chest Pain Add. Discharge Instructions: Continue taking omeprazole as previously directed. Add Carafate (Ultravate) 30 minutes before meals and before bed. Crush and mix with 5 to 10 mL of water to create a slurry. Follow-up with your primary care provider soon as possible. Please call Friday for an appointment time. Return to the emergency room with worsening conditions. Call with questions or concerns. Elevate feet when at rest. Avoid the following: Eating large meals, eating close to bedtime, caffeine, carbonation, citrus fruits and juices, chocolate, alcohol, tobacco, mints, spicy foods, fatty or greasy foods, NSAID medications such as ibuprofen or naproxen, or anything else that irritate your stomach. All discharge instructions reviewed with patient and/or family. Voiced understanding. Scripts Sucralfate (Carafate) 1 Gm Tablet 1 GM PO QID, #120 TAB Crush and mix with 5 to 10 mL water to create slurry. Take 30-min before meals and bedtime. Prov: JENNA RAGLAND MD 08/19/20 Copy Copies To 1: ALLSYON QUIROZ MD, ELIZABETH X MED STUDENT Aug 19, 2020 09:28 JENNA RAGLAND MD Aug 19, 2020 12:22
[2020-08-19 09:29] LABS: BUN/CREATININE RATIO 12
[2020-08-19 09:30] LABS: PROTHROMBIN TIME PATIENT 13.4 SEC (12.2-14.7)
[2020-08-19 09:31] LABS: ALANINE AMINOTRANSFERASE 57 U/L (0-55); MAGNESIUM 2.5 MG/DL (1.6-2.4)
--- NOTE | 2020-08-19 09:34 | Diagnostic Imaging Report ---
INDICATION: Chest pain. TECHNIQUE: Single view chest 9:23 AM. CORRELATION STUDY: 08/08/2019 FINDINGS: Heart size and mediastinal configuration appear generally stable. The lungs are clear with no consolidating infiltrate. There is no significant effusion or pneumothorax. IMPRESSION: 1. Negative for acute abnormality of the chest. Dictated by: Dictated on workstation # [id number]
--- NOTE | 2020-08-19 10:59 | NUR ---
IN WITH THE PT AT THIS TIME.
[2020-08-19] MEDS ORDERED: ONDANSETRON 4 MG/2 ML (SDV) Z0FRAN IVP ONE (11:45)
[2020-08-19] MEDS ORDERED: ANTACID SUSP 30 ML UDC (MYLANTA) PO ONE (11:45)
[2020-08-19] MEDS ORDERED: LIDOCAINE 2% VISCOUS 15 ML UDC PO ONE (11:45)
[2020-08-19] MEDS ORDERED: SUCR1TAB36 PO (12:30)
[2020-08-19 13:09] VITALS: BP 130/92
== END 2020-08-19 13:10 | disposition home or self-care (01) ==
LOC: EDUNIT# 08:42 → ER 08:43
DX: R07.89 Other chest pain (principal); R10.13 Epigastric pain; R60.9 Edema, unspecified; F17.290 Nicotine dependence, other tobacco product, uncomplicated; Z82.49 Family history of ischemic heart disease and other diseases of the circulatory system; Z83.3 Family history of diabetes mellitus; Z82.61 Family history of arthritis; Z80.9 Family history of malignant neoplasm, unspecified; Z88.5 Allergy status to narcotic agent; Z88.8 Allergy status to other drugs, medicaments and biological substances
CPT/HCPCS: 36415; 71045; 80053; 83690; 83735; 83874; 83880; 84484; 85025; 85610; 85730; 93005; 93041

== ENCOUNTER → 2020-08-22 | Outpatient (CLI) | payer MEDICARE, MEDICAID ==
[~2020-08-22] MED LIST changes: +BARIUM for suspension 96% w/w (Vanilla Silq Medium Density) PO ONE; +BARIUM for suspension 98% w/w (Vanilla Silq High Density) PO ONE; +SUCR1TAB36 PO
--- NOTE | 2020-08-22 13:02 | Diagnostic Imaging Report ---
EXAMINATION: Upper GI exam. INDICATION: Pregastric surgery. FINDINGS: The report from the prior upper GI exam of 09/03/2007 is not available for comparison at this time. In my review of the images of that study, there was no sign of an acute abnormality. A double contrast exam was performed. The patient swallowed the contrast material without difficulty. There was no delay or obstruction to the passage of barium through the esophagus. There is no sign of a hiatal hernia nor is there any evidence for reflux. The stomach shows good distensibility and motility. There is no mass or ulceration evident. The duodenal bulb and proximal small bowel are unremarkable. IMPRESSION: 1. There is no evidence for a hiatal hernia or for gastroesophageal reflux. 2. There is no gastric mass or ulcer identified. 3. The proximal small bowel is unremarkable. Dictated by: Dictated on workstation # [id number]
== END ==
LOC: RAD 11:33
PROVIDERS: ATTEND Surgery
DX: K21.9 Gastro-esophageal reflux disease without esophagitis (principal); E66.01 Morbid (severe) obesity due to excess calories
CPT/HCPCS: 74246

== ENCOUNTER 2020-10-02 08:42 | Emergency (ER) | payer MEDICARE, MEDICAID ==
[~2020-10-02] VITALS: Ht 180 cm; Wt 118.0 kg
[~2020-10-02 08:42] MED LIST changes: -BARIUM for suspension 96% w/w (Vanilla Silq Medium Density) PO ONE; -BARIUM for suspension 98% w/w (Vanilla Silq High Density) PO ONE
[2020-10-02] MEDS ORDERED: LACTATED RINGERS 1,000 ML IV ONE (09:00)
[2020-10-02] MEDS ORDERED: ONDANSETRON 4 MG/2 ML (SDV) Z0FRAN IVP ONE (09:00)
[2020-10-02] MEDS ORDERED: FAMOTIDINE 20MG/2ML IV (PEPCID) IVP ONE (09:00)
[2020-10-02] MEDS ORDERED: fentaNYL INJECTION 100 MCG/2 ML AMP IVP ONE (09:00)
--- NOTE | 2020-10-02 09:00 | ED Abdominal Pain ---
General Stated Complaint: ABD/BACK PAIN Source of Information: Patient Exam Limitations: No Limitations History of Present Illness Date Seen by Provider: Oct 02, 2020 Time Seen by Provider: 08:49 Initial Comments The patient presents to the ER by private conveyance from home with chief complaint of pain starting Friday evening in her left back and flank radiating through to her epigastric region. No dysuria or hematuria. She has had nausea with retching but no vomiting. No diarrhea or constipation. She has had her appendix and gallbladder out as well as for surgeries for ovarian cysts. She was post to see Dr. Quiroz today in follow-up for getting set up to do a gastric bypass. She is insulin-dependent diabetic and has high triglycerides and cholesterol but no history of pancreatitis. She does not drink alcohol. She does smoke about 1 cigar a day. She tried Tylenol without significant success of pain control. Her pain is progressively gotten worse over the past 3 days. She rates it now as a 9 out of 10, unrelenting sharp pain. She does have chronic low back pain which she follows with Dr. Quiroz as well as fibromyalgia and does not take anything routinely for pain. Allergies and Home Medications Allergies Coded Allergies: pregabalin (Verified Adverse Reaction, Intermediate, 12/07/16) Rhabdomyolysis meperidine (Verified Adverse Reaction, Mild, NAUSEA, 12/07/16) morphine (Verified Adverse Reaction, Mild, NAUSEA, 09/13/07) Uncoded Allergies: STEROID PILLS (Allergy, Unknown, 11/15/13) Home Medications Cefuroxime Axetil 250 Mg Tablet, 250 MG PO BID Prescribed by: RAFA ALVARENGA on 06/29/20 1335 Fluconazole 100 Mg Tablet, 100 MG PO ONCE Prescribed by: BAR MINOR on 02/06/20 1245 Methocarbamol 750 Mg Tablet, 750 MG PO Q4H PRN for PAIN-MODERATE (5-7) Prescribed by: RAFA ALVARENGA on 05/18/20 1922 Ondansetron 4 Mg Tab.rapdis, 4 MG PO Q6H PRN for NAUSEA/VOMITING Prescribed by: NANCY FLYNN on 08/08/19 1409 Promethazine HCl 25 Mg Tablet, 25 MG PO Q6H PRN for NAUSEA/VOMITING Prescribed by: NANCY FLYNN on 08/08/19 1409 Sucralfate 1 Gm Tablet, 1 GM PO QID Crush and mix with 5 to 10 mL water to create slurry. Take 30-min before meals and bedtime. Prescribed by: JENNA MCDANIELS on 08/19/20 1230 Patient Home Medication List Home Medication List Reviewed: Yes Review of Systems Review of Systems Constitutional: No chills, No diaphoresis EENTM: No Blurred Vision, No Double Vision Respiratory: Denies Cough, Denies Shortness of Air Cardiovascular: Denies Chest Pain, Denies Edema Gastrointestinal: Abdominal Pain; Denies Constipated, Denies Diarrhea; Nausea, Poor Fluid Intake Genitourinary: Denies Burning, Denies Discharge Musculoskeletal: see HPI, back pain; No joint pain All Other Systems Reviewed Negative Unless Noted: Yes Past [id number]-Rgooyz Hx Patient Social History Alcohol Use: Denies Use Smoking Status: Current Everyday Smoker Type Used: Cigars 2nd Hand Smoke Exposure: Yes Recent Hopitalizations: No Immunizations Up To Date Tetanus Booster (TDap): Unknown Date of Influenza Vaccine: May 15, 2016 Seasonal Allergies Seasonal Allergies: Yes Past Medical History Surgeries: Yes (TEAR REPAIR AFTER VAG , DX LAP FOR ENDOMETRIOSIS/OVARIAN CYSTS,EGD) Abdominal, Appendectomy, Gallbladder, Hysterectomy, Oophorectomy Respiratory: No Cardiac: Yes High Cholesterol, Hypertension Neurological: Yes Headaches /Migraines 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 Disorders: Yes Female 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 Disorders: 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, 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 Sexually Transmitted Disease: No Genitourinary: No Gastrointestinal: Yes (CHRONIC NAUSEA AND ABDOMINAL PAIN ) Gastroesophageal Reflux, Diverticulosis Musculoskeletal: Yes Fibromyalgia, Chronic Back Pain Endocrine: Yes Diabetes, Non-Insulin dep HEENT: No Cancer: No Psychosocial: Yes Anxiety, Depression Integumentary: No Blood Disorders: No Family Medical History Cancer Cataract Family history: Allergy Family history: Arthritis Family history: Asthma Family history: Breast disease Family history: Diabetes mellitus Family history: Hypertension Family history: Osteoporosis Family history: Thyroid disorder Headache Heart disease Hypercholesterolemia Psychotic disorder Seizure disorder No Family History of: Abdominal aortic aneurysm Onslow's disease Alcoholism Aphasia Cancer of colon Chest pain Congenital heart disease Congestive heart failure Cystic fibrosis Dementia Dysphagia Family history: Alzheimer's disease Family history: Cardiovascular disease Family history: Coronary thrombosis Family history: Gastrointestinal disease Family history: Glaucoma Hearing loss Hereditary disease History of - anemia History of - disorder History of - respiratory disease History of drug abuse Human immunodeficiency virus (HIV) seropositivity Infertile Kidney disease Malignant neoplasm of lung Myocardial infarction Parkinson's disease Prostate cancer Stroke Tuberculosis Visual impairment Physical Exam Vital Signs Vital Signs - First Documented 10/02/20 08:49 Temp 36.6 Pulse 97 Resp 18 B/P (MAP) 153/100 (117) Pulse Ox 99 Capillary Refill : Height/Weight/BMI Height: 5'11.00" Weight: 220lbs. 0oz. 99.315390at; 39.00 BMI Method:Stated General Appearance: moderate distress, obese HEENT: PERRL/EOMI, pharynx normal Neck: full range of motion, normal inspection Respiratory: lungs clear, normal breath sounds, no respiratory distress, no accessory muscle use Cardiovascular: normal peripheral pulses, regular rate, rhythm Gastrointestinal: normal bowel sounds, no organomegaly, guarding, tenderness (Epigastric left upper quadrant left lower quadrant mostly but all over tenderness to palpation) Extremities: non-tender, normal inspection, normal capillary refill Back: normal inspection; No CVA tenderness (R); CVA tenderness (L) Neurologic/Psychiatric: alert; No normal mood/affect (Tearful, anxious); oriented x 3 Skin: normal color, warm/dry Progress/Results/Core Measures Results/Orders Lab Results Laboratory Tests Test 10/02/20 08:55 10/02/20 10:56 Range/Units White Blood Count 11.1 H 4.3-11.0 10^3/uL Red Blood Count 4.99 3.80-5.11 10^6/uL Hemoglobin 14.0 11.5-16.0 g/dL Hematocrit 43 35-52 % Mean Corpuscular Volume 86 80-99 fL Mean Corpuscular Hemoglobin 28 25-34 pg Mean Corpuscular Hemoglobin Concent 33 32-36 g/dL Red Cell Distribution Width 17.0 H 10.0-14.5 % Platelet Count 329 130-400 10^3/uL Mean Platelet Volume 9.2 9.0-12.2 fL Immature Granulocyte % (Auto) 1 % Neutrophils (%) (Auto) 67 42-75 % Lymphocytes (%) (Auto) 24 12-44 % Monocytes (%) (Auto) 6 0-12 % Eosinophils (%) (Auto) 1 0-10 % Basophils (%) (Auto) 1 0-10 % Neutrophils # (Auto) 7.5 1.8-7.8 10^3/uL Lymphocytes # (Auto) 2.7 1.0-4.0 10^3/uL Monocytes # (Auto) 0.7 0.0-1.0 10^3/uL Eosinophils # (Auto) 0.1 0.0-0.3 10^3/uL Basophils # (Auto) 0.1 0.0-0.1 10^3/uL Immature Granulocyte # (Auto) 0.1 0.0-0.1 10^3/uL Sodium Level 139 135-145 MMOL/L Potassium Level 4.0 3.6-5.0 MMOL/L Chloride Level 98 98-107 MMOL/L Carbon Dioxide Level 27 21-32 MMOL/L Anion Gap 14 5-14 MMOL/L Blood Urea Nitrogen 17 7-18 MG/DL Creatinine 1.00 0.60-1.30 MG/DL Estimat Glomerular Filtration Rate > 60 BUN/Creatinine Ratio 17 Glucose Level 100 70-105 MG/DL Calcium Level 9.2 8.5-10.1 MG/DL Corrected Calcium 8.8 8.5-10.1 MG/DL Total Bilirubin 0.3 0.1-1.0 MG/DL Aspartate Amino Transf (AST/SGOT) 34 5-34 U/L Alanine Aminotransferase (ALT/SGPT) 68 H 0-55 U/L Alkaline Phosphatase 156 H 40-136 U/L C-Reactive Protein High Sensitivity 1.03 H 0.00-0.50 MG/DL Total Protein 8.9 H 6.4-8.2 GM/DL Albumin 4.5 3.2-4.5 GM/DL Lipase 12 8-78 U/L Urine Color YELLOW Urine Clarity CLEAR Urine pH 8.0 5-9 Urine Specific [place] 1.015 L 1.016-1.022 Urine Protein NEGATIVE NEGATIVE Urine Glucose (UA) NEGATIVE NEGATIVE Urine Ketones NEGATIVE NEGATIVE Urine Nitrite NEGATIVE NEGATIVE Urine Bilirubin NEGATIVE NEGATIVE Urine Urobilinogen 0.2 < = 1.0 MG/DL Urine Leukocyte Esterase NEGATIVE NEGATIVE Urine RBC (Auto) NEGATIVE NEGATIVE Urine RBC NONE /HPF Urine WBC NONE /HPF Urine Squamous Epithelial Cells 5-10 /HPF Urine Crystals NONE /LPF Urine Bacteria NEGATIVE /HPF Urine Casts NONE /LPF Urine Mucus NEGATIVE /LPF Urine Culture Indicated NO My Orders Orders - NANCY FLYNN Ua Culture If Indicated (10/02/20 08:49) Urine Bedside (10/02/20 08:49) Fentanyl Injection (Sublimaze Injection (10/02/20 09:00) Ondansetron Injection (Zofran Injectio (10/02/20 09:00) Famotidine Injection (Pepcid Injection) (10/02/20 09:00) Lactated Ringers (Lr 1000 Ml Iv Solution (10/02/20 09:00) Cbc With Automated Diff (10/02/20 08:52) Comprehensive Metabolic Panel (10/02/20 08:52) Hs C Reactive Protein (10/02/20 08:52) Lipase (10/02/20 08:52) Lactated Ringers (Lr 1000 Ml Iv Solution (10/02/20 10:30) Promethazine Injection (Phenergan Injec (10/02/20 10:30) Promethazine Injection (Phenergan Injec (10/02/20 10:17) Medications Given in ED Current Medications Medications Dose Ordered Sig/Cali Route Start Time Stop Time Status Last Admin Dose Admin Famotidine 20 mg ONCE ONCE IVP 10/02/20 09:00 10/02/20 09:01 DC 10/02/20 09:04 20 MG Fentanyl Citrate 75 mcg ONCE ONCE IVP 10/02/20 09:00 10/02/20 09:01 DC 10/02/20 09:04 75 MCG Lactated Ringer's 1,000 ml @ 0 mls/hr Q0M ONCE IV 10/02/20 09:00 10/02/20 09:01 DC 10/02/20 09:04 1,000 MLS/HR Ondansetron HCl 8 mg ONCE ONCE IVP 10/02/20 09:00 10/02/20 09:01 DC 10/02/20 09:05 8 MG Promethazine HCl 12.5 mg ONCE ONCE IVP 10/02/20 10:30 10/02/20 10:31 DC 10/02/20 10:23 12.5 MG Vital Signs/I&O 10/02/20 08:49 Temp 36.6 Pulse 97 Resp 18 B/P (MAP) 153/100 (117) Pulse Ox 99 Progress Progress Note #1: Time: 09:00 Progress Note Differential diagnosis includes pancreatitis, gastritis/PUD, colitis, kidney stone. Plan to get urine labs and pancreas enzymes. We will give her a liter of fluids, 75 of fentanyl since she is had difficulties with Demerol and morphine in the past making her feel shaky, give her some Pepcid and finally some ondansetron for nausea. Progress Note #2: Time: 10:45 Progress Note Pain is better. Patient was somnolent after the fentanyl for a while. Nausea has not improved so Phenergan 25 mg was ordered. She has not been able to produce a urine so we will give her another liter of fluids. Progress Note #3: Time: 13:50 Progress Note The patient's nausea resolved with Phenergan and her pain is much better she attributes this to the IV fluids. She is no longer having significant pain. She think she is just constipated and we did offer to do a CT scan versus conservative observation outpatient. Both are reasonable choices and the patient elected to observe outpatient on some MiraLAX. Return precautions were discussed. Departure Impression Primary Impression: Abdominal pain Qualified Codes: R10.84 - Generalized abdominal pain Additional Impression: Constipation Qualified Codes: K59.00 - Constipation, unspecified Disposition: HOME, SELF-CARE Condition: Stable Departure-Patient Inst. Decision time for Depature: 13:51 Referrals: ALLYSON QUIROZ MD (PCP/Family) Primary Care Physician Patient Instructions: Constipation, Adult (DC), LOCAL PHYSICIAN LIST Add. Discharge Instructions: Drink lots of fluids. MiraLAX 1 capful in 6 to 8 ounces of fluid up to 4 times a day until you have good results. Enemas once or twice a day until you have good results. Return to the ER for fever, intractable pain or other worrisome symptoms. Phenergan 1 tablet every 6 hours as necessary for nausea. If your symptoms are not improving with a good bowel movement then follow-up with primary care doctor in the next week. Scripts Promethazine HCl (Promethazine Tablet) 25 Mg Tablet 25 MG PO Q6H PRN for NAUSEA/VOMITING, #20 TAB 0 Refills Prov: NANCY FLYNN 10/02/20 Work/School Note: Work Release Form Date Seen in the Emergency Department: Oct 02, 2020 Return to Work: Oct 04, 2020 Restrictions: No Restrictions NANCY FLYNN Oct 02, 2020 09:00
[2020-10-02 09:12] LABS: BASOPHILS # (AUTO) 0.1 10^3/uL (0.0-0.1); BASOPHILS % (AUTO) 1 % (0-10); EOSINOPHILS # (AUTO) 0.1 10^3/uL (0.0-0.3); EOSINOPHILS % (AUTO) 1 % (0-10); HEMATOCRIT 43 % (35-52); LYMPHOCYTES # (AUTO) 2.7 10^3/uL (1.0-4.0); LYMPHOCYTES % (AUTO) 24 % (12-44); MEAN CORPUSCULAR HEMOGLOBIN 28 pg (25-34); MEAN CORPUSCULAR HGB CONC 33 g/dL (32-36); MEAN CORPUSCULAR VOLUME 86 fL (80-99); MEAN PLATELET VOLUME 9.2 fL (9.0-12.2); MONOCYTES # (AUTO) 0.7 10^3/uL (0.0-1.0); MONOCYTES % (AUTO) 6 % (0-12); NEUTROPHILS # (AUTO) 7.5 10^3/uL (1.8-7.8); NEUTROPHILS % (AUTO) 67 % (42-75); PLATELET COUNT 329 10^3/uL (130-400); WHITE BLOOD COUNT 11.1 10^3/uL (4.3-11.0)
[2020-10-02 09:22] LABS: ALBUMIN 4.5 GM/DL (3.2-4.5); CHLORIDE 98 MMOL/L (98-107); SODIUM 139 MMOL/L (135-145)
[2020-10-02 09:23] LABS: CALCIUM 9.2 MG/DL (8.5-10.1)
[2020-10-02 09:24] LABS: GLUCOSE 100 MG/DL (70-105); TOTAL PROTEIN 8.9 GM/DL (6.4-8.2)
[2020-10-02 09:25] LABS: CARBON DIOXIDE 27 MMOL/L (21-32)
[2020-10-02 09:26] LABS: BILIRUBIN,TOTAL 0.3 MG/DL (0.1-1.0)
[2020-10-02 09:28] LABS: ALKALINE PHOSPHATASE 156 U/L (40-136); GFR ESTIMATED > 60
[2020-10-02 09:29] LABS: BUN/CREATININE RATIO 17
[2020-10-02] MEDS ORDERED: PROMETHAZINE INJ 25 MG/ML (PHENERGAN) AMP IVP ONE ×2 (09:30→10:30)
[2020-10-02 09:31] LABS: ALANINE AMINOTRANSFERASE 68 U/L (0-55); LIPASE 12 U/L (8-78)
[2020-10-02] MEDS ORDERED: PROMETHAZINE INJ 25 MG/ML (PHENERGAN) AMP ONE (10:17)
[2020-10-02] MEDS ORDERED: LACTATED RINGERS 1,000 ML IV SCH (10:30)
[2020-10-02 11:16] LABS: BILIRUBIN,URINE NEGATIVE (NEGATIVE); CLARITY,URINE CLEAR; COLOR,URINE YELLOW; GLUCOSE, URINE (UA) NEGATIVE (NEGATIVE); KETONES,URINE NEGATIVE (NEGATIVE); LEUKOCYTE ESTERASE ,URINE NEGATIVE (NEGATIVE); NITRITE,URINE NEGATIVE (NEGATIVE); PROTEIN,URINE NEGATIVE (NEGATIVE)
[2020-10-02 11:18] LABS: BACTERIA,URINE NEGATIVE /HPF
[2020-10-02] MEDS ORDERED: PROM25TA14 PO (13:52)
[2020-10-02 13:58] VITALS: BP 114/82
== END 2020-10-02 13:59 | disposition home or self-care (01) ==
LOC: EDUNIT# 08:42 → ER 08:44
DX: R10.13 Epigastric pain (principal); K59.00 Constipation, unspecified; K21.9 Gastro-esophageal reflux disease without esophagitis; E10.9 Type 1 diabetes mellitus without complications; E66.9 Obesity, unspecified; F41.9 Anxiety disorder, unspecified; F17.290 Nicotine dependence, other tobacco product, uncomplicated; Z68.39 Body mass index [BMI] 39.0-39.9, adult; Z88.5 Allergy status to narcotic agent; Z88.8 Allergy status to other drugs, medicaments and biological substances; Z82.61 Family history of arthritis; Z82.49 Family history of ischemic heart disease and other diseases of the circulatory system; Z83.3 Family history of diabetes mellitus
CPT/HCPCS: 36415; 80053; 81000; 83690; 84703; 85025; 86141

== ENCOUNTER → 2020-10-16 | Outpatient (CLI) | payer MEDICARE, MEDICAID ==
--- NOTE | 2020-10-16 14:28 | Diagnostic Imaging Report ---
EXAM: Lumbar spine - 2-3 views. INDICATION: Low back pain. COMPARISON: CT lumbar spine without contrast 05/18/2020. FINDINGS: There are 5 lumbar-type vertebral bodies. Normal alignment. Vertebral body heights are preserved. No fractures. No substantial spondylotic change. Visualized pelvis is intact. Cholecystectomy clips. IMPRESSION: Negative lumbar spine radiographs. Dictated by: Dictated on workstation # [id number]
== END ==
LOC: RAD 12:53
PROVIDERS: ATTEND Internal Medicine
DX: M54.5 Low back pain (principal)
CPT/HCPCS: 72100

== ENCOUNTER → 2020-10-31 | Outpatient (CLI) | payer MEDICARE, MEDICAID | LOC: LABNPT 08:14 | PROVIDERS: ATTEND Internal Medicine | DX: R43.0 Anosmia (principal); Z20.822 Contact with and (suspected) exposure to COVID-19 | CPT/HCPCS: 87635 ==

== ENCOUNTER 2020-12-23 15:41 | Emergency (ER) | payer MEDICARE, MEDICAID ==
[~2020-12-23] VITALS: Ht 170 cm; Wt 97.0 kg
[~2020-12-23 15:41] MED LIST changes: -NABU-90 PO; +NABU-95 PO
[2020-12-23 16:11] LABS: BASOPHILS # (AUTO) 0.1 10^3/uL (0.0-0.1); BASOPHILS % (AUTO) 1 % (0-10); EOSINOPHILS # (AUTO) 0.1 10^3/uL (0.0-0.3); EOSINOPHILS % (AUTO) 2 % (0-10); HEMATOCRIT 40 % (35-52); HEMOGLOBIN 13.1 g/dL (11.5-16.0); LYMPHOCYTES # (AUTO) 2.6 10^3/uL (1.0-4.0); LYMPHOCYTES % (AUTO) 29 % (12-44); MEAN CORPUSCULAR HEMOGLOBIN 29 pg (25-34); MEAN CORPUSCULAR HGB CONC 33 g/dL (32-36); MEAN CORPUSCULAR VOLUME 86 fL (80-99); MEAN PLATELET VOLUME 9.8 fL (9.0-12.2); MONOCYTES # (AUTO) 0.5 10^3/uL (0.0-1.0); MONOCYTES % (AUTO) 6 % (0-12); NEUTROPHILS # (AUTO) 5.7 10^3/uL (1.8-7.8); NEUTROPHILS % (AUTO) 63 % (42-75); PLATELET COUNT 366 10^3/uL (130-400); WHITE BLOOD COUNT 9.1 10^3/uL (4.3-11.0)
[2020-12-23 16:13] LABS: CHLORIDE 105 MMOL/L (98-107); POTASSIUM 3.3 MMOL/L (3.6-5.0); SODIUM 142 MMOL/L (135-145)
[2020-12-23 16:15] LABS: CALCIUM 9.6 MG/DL (8.5-10.1)
[2020-12-23 16:16] LABS: GLUCOSE 91 MG/DL (70-105); TOTAL PROTEIN 7.7 GM/DL (6.4-8.2)
[2020-12-23 16:17] LABS: CARBON DIOXIDE 27 MMOL/L (21-32)
[2020-12-23 16:18] LABS: BILIRUBIN,TOTAL 0.3 MG/DL (0.1-1.0)
[2020-12-23 16:20] LABS: ALKALINE PHOSPHATASE 120 U/L (40-136); CREATININE SERUM 0.79 MG/DL (0.60-1.30); GFR ESTIMATED > 60
[2020-12-23 16:21] LABS: ACETAMINOPHEN < 10 UG/ML (10-30); BUN/CREATININE RATIO 11
[2020-12-23 16:22] LABS: SALICYLATE < 5.0 MG/DL (5.0-20.0)
[2020-12-23 16:23] LABS: ALANINE AMINOTRANSFERASE 35 U/L (0-55)
[2020-12-23 16:37] LABS: BILIRUBIN,URINE NEGATIVE (NEGATIVE); CLARITY,URINE CLEAR; COLOR,URINE YELLOW; GLUCOSE, URINE (UA) NEGATIVE (NEGATIVE); KETONES,URINE NEGATIVE (NEGATIVE); LEUKOCYTE ESTERASE ,URINE NEGATIVE (NEGATIVE); NITRITE,URINE NEGATIVE (NEGATIVE); PH,URINE 6.5 (5-9); PROTEIN,URINE NEGATIVE (NEGATIVE)
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
[2020-12-23] MEDS ORDERED: ALPRAZolam 1 MG (XANAX) TAB PO ONE (16:45)
[2020-12-23] MEDS ORDERED: KETOROLAC 60 MG/2 ML VIAL IM ONE (16:45)
[2020-12-23] MEDS ORDERED: KETOROLAC 30 MG/ML VIAL IVP ONE (16:45)
[2020-12-23 16:53] LABS: BACTERIA,URINE TRACE /HPF
[2020-12-23 16:56] LABS: AMPHETAMINE SCREEN, URINE NEGATIVE (NEGATIVE); BARBITURATE SCREEN URINE NEGATIVE (NEGATIVE); BENZODIAZEPINES SCREEN URINE POSITIVE (NEGATIVE); CANNABINOID SCREEN, URINE NEGATIVE (NEGATIVE); COCAINE SCREEN URINE NEGATIVE (NEGATIVE); METHADONE STAT NEGATIVE (NEGATIVE); METHAMPHETAMINE SCREEN URINE S NEGATIVE (NEGATIVE); OPIATE SCREEN URINE NEGATIVE (NEGATIVE); OXYCODONE STAT NEGATIVE (NEGATIVE); PROPOXYPHENE STAT NEGATIVE (NEGATIVE); TRICYCLIC ANTIDEPRESSANTS SCRE NEGATIVE (NEGATIVE)
--- NOTE | 2020-12-23 17:21 | Diagnostic Imaging Report ---
INDICATION: syncope. TECHNIQUE: Single view chest 5:10 PM. CORRELATION STUDY: 08/19/2020 FINDINGS: The heart size, mediastinal configuration and pulmonary vascularity are within normal limits. The lungs are clear with no consolidating infiltrate. There is no significant effusion or pneumothorax. IMPRESSION: 1. Negative for acute abnormality of the chest. Dictated by: Dictated on workstation # [id number]
[2020-12-23 17:50] VITALS: BP 132/79
== END 2020-12-23 17:47 | disposition home or self-care (01) ==
LOC: EDUNIT# 15:41 → ER 15:42
DX: R55 Syncope and collapse (principal); I10 Essential (primary) hypertension; K21.9 Gastro-esophageal reflux disease without esophagitis; M79.7 Fibromyalgia; Z88.8 Allergy status to other drugs, medicaments and biological substances; Z88.5 Allergy status to narcotic agent; Z87.891 Personal history of nicotine dependence; Z77.22 Contact with and (suspected) exposure to environmental tobacco smoke (acute) (chronic); Z79.899 Other long term (current) drug therapy
CPT/HCPCS: 71045; 80053; 80306; 81000; 83880; 84484; 85025; 93005; 93041; 99284; G0480 ×3; 36415; 80320; 80329; 96374

== ENCOUNTER 2020-12-24 23:59 | Emergency (ER) | payer MEDICARE, MEDICAID ==
[~2020-12-24] VITALS: Ht 180.3 cm; Wt 108.8 kg
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
[2020-12-25 01:20] VITALS: BP 123/73
--- NOTE | 2020-12-25 06:22 | Diagnostic Imaging Report ---
INDICATION: Right ankle injury COMPARISON: None FINDINGS: 3 views of the right ankle demonstrate no fracture or dislocation. Articular surfaces are normal. IMPRESSION: Negative right ankle Dictated by: Dictated on workstation # [id number]
--- NOTE | 2020-12-25 06:24 | Diagnostic Imaging Report ---
INDICATION: Right foot pain COMPARISON: None FINDINGS: 3 views of the right foot demonstrate no fracture or dislocation. Articular surfaces are normal. No foreign body seen. IMPRESSION: Negative right foot Dictated by: Dictated on workstation # [id number]
== END 2020-12-25 01:20 | disposition home or self-care (01) ==
LOC: EDUNIT# 23:59 → ER 12-25 00:01
DX: S93.401A Sprain of unspecified ligament of right ankle, initial encounter (principal); I10 Essential (primary) hypertension; E11.9 Type 2 diabetes mellitus without complications; G89.29 Other chronic pain; M54.9 Dorsalgia, unspecified; K21.9 Gastro-esophageal reflux disease without esophagitis; M79.7 Fibromyalgia; F17.290 Nicotine dependence, other tobacco product, uncomplicated; Z88.8 Allergy status to other drugs, medicaments and biological substances; Z88.5 Allergy status to narcotic agent; W01.0XXA Fall on same level from slipping, tripping and stumbling without subsequent striking against object, initial encounter; Y92.009 Unspecified place in unspecified non-institutional (private) residence as the place of occurrence of the external cause
CPT/HCPCS: 73610; 73630

== ENCOUNTER 2021-01-19 05:33 | Outpatient (RCR) | payer MEDICARE, MEDICAID ==
--- NOTE | 2021-01-16 10:07 | HISTORY AND PHYSICAL ---
DATE OF SERVICE: 01/16/2021 EGD HISTORY AND PHYSICAL HISTORY OF PRESENT ILLNESS: The patient is a 40-year-old black female reporting a several month history of increasing epigastric pain with intermittent dysphagia, predominantly to solids. If she eats soft foods, smaller volumes symptoms are somewhat better. She denies waking up with symptoms. Denies weight loss, melena or bright red blood per rectum. In review of her electronic medical record. She had had [address] Davis in 2011, which did not reveal evidence for erosive esophagitis. There was no report of hiatal hernia with some mild antral erythema without evidence for peptic ulcer disease at that time. She denies aspirin or nonsteroidal medication usage. She has associated abdominal pain, predominantly epigastric. She denies waking up with coughing or choking. PAST SURGICAL HISTORY: Significant for a cholecystectomy and appendectomy and a total abdominal hysterectomy, latter done reportedly for benign reasons. No history of malignancy. PHYSICAL EXAMINATION: GENERAL: Reveals a pleasant, but anxious, overweight black female in no acute distress. VITAL SIGNS: Weight 254.4 pounds, which was up 7 pounds compared to a weight just 9 days ago. Blood pressure 136/80. HEENT: Unremarkable. Sclerae nonicteric. CHEST: Clear. CARDIOVASCULAR: Regular rate and rhythm without murmur, S3 or S4. ABDOMEN: Soft, supple epigastric pain with guarding, but no rebound noted. No mass or organomegaly. Bowel sounds positive. Left lower quadrant pain to palpation as well without mass, although obesity decreases the sensitivity for mass detection. EXTREMITIES: Reveal no cyanosis, clubbing or edema. LABORATORY DATA: Blood tests from November revealed minimal AST elevation at 41. Minimal total protein elevation at 8.2. The remainder of the chemistry panel was normal with a lipase of 13 and an amylase of 91, normal as well. ASSESSMENT AND PLAN: For further evaluation of dysphagia and epigastric pain, the patient is being set up for EGD evaluation with review of electronic medical record and evaluation, a little over 25 minutes care time spent. Job ID: [id number] DocumentID: [id number] Dictated Date: 01/16/2021 08:43:06 Instructor Apparel Manufacture Date: 01/16/2021 10:07:12 Dictated By: JOSE SHORE MD
[~2021-01-19] VITALS: Ht 180.3 cm; Wt 115.5 kg
[~2021-01-19 05:33] MED LIST changes: +ARPZ20T PO; +FAMO-119 PO
== END 2021-01-19 09:23 | disposition home or self-care (01) ==
LOC: PREOP 05:33
PROVIDERS: ATTEND Internal Medicine
DX: Z01.812 Encounter for preprocedural laboratory examination (principal); K21.9 Gastro-esophageal reflux disease without esophagitis; Z20.822 Contact with and (suspected) exposure to COVID-19
CPT/HCPCS: 87635

== ENCOUNTER 2021-01-23 06:25 | Day surgery (SDC) | payer MEDICARE, MEDICAID ==
[2021-01-23] VITALS (7 sets, daily range): BP systolic 102–126; BP diastolic 63–88
[~2021-01-23] VITALS: Ht 180.3 cm; Wt 115.5 kg
[2021-01-23] MEDS ORDERED: LACTATED RINGERS 1,000 ML IV STA (06:51)
[2021-01-23] MEDS ORDERED: LACTATED RINGERS 1,000 ML IV ONE (06:55)
[2021-01-23] MEDS ORDERED: LIDOCAINE JELLY 2% 6 ML SYRINGE MM PRN (07:00)
[2021-01-23] MEDS ORDERED: HURRICAINE EXT TUBE (BENZOCAINE) XX PRN (07:00)
[2021-01-23] MEDS ORDERED: proPOfol 200 MG/20 ML (DIPRIVAN) VIAL IV ONE (07:02)
[2021-01-23] MEDS ORDERED: MIDAZOLAM 2 MG/2 ML (VERSED) VIAL ONE (07:07)
[2021-01-23] MEDS ORDERED: LIDOCAINE PF 2% 5 ML (XYLOCAINE) VIAL ONE (07:11)
[2021-01-23] MEDS ORDERED: PROMETHAZINE INJ 25 MG/ML (PHENERGAN) AMP IVP ONE (07:15)
--- NOTE | 2021-01-23 07:38 | Pre-Op Note & Conscious Sedat ---
Pre-Operative Progress Note H&P Reviewed The H&P was reviewed, patient examined and no changes noted. Date H&P Reviewed: Jan 23, 2021 Time H&P Reviewed: 07:15 Conscious Sedation Pre-Proced ASA Score 2 For ASA 3 and 4: Consider anesthesia and medical clearance. Also, for patients with a history of failed moderate sedation consider anesthesia. Airway Lungs Heart ASA score ASA 1: a normal healthy patient ASA 2: a patient with a mild systemic disease (mid diabetes, controlled hypertension, obesity ASA 3: a patient with a severe systemic disease that limits activity (angina, COPD, prior Myocardial infarction) ASA 4: a patient with an incapacitating disease that is a constant threat to life (CHF, renal failure) ASA 5: a moribund patient not expected to survive 24 hrs. (ruptured aneurysm) ASA 6: a declared brain- patient whose organs are being harvested. For emergent operations, add the letter E after the classification Mallampati Classification Grade 2 Sedation Plan Analgesia, Amnesia, Plan communicated to team members, Discussed options with patient/fam, Discussed risks with patient/fam The patient is an appropriate candidate to undergo the planned procedure, sedation, and anesthesia. The patient immediately re-assessed prior to indication. JOSE SHORE MD Jan 23, 2021 07:38
--- NOTE | 2021-01-23 09:51 | Anesthesia-General Post-Op ---
MAC Patient Condition Mental Status/LOC: Same as Preop Cardiovascular: Satisfactory Nausea/Vomiting: Absent Respiratory: Satisfactory Pain: Controlled Complications: Absent Post Op Complications Complications None Follow Up Care/Instructions Patient Instructions None needed. Anesthesiology Discharge Order Discharge Order Patient is doing well, no complaints, stable vital signs, no apparent adverse anesthesia problems. No complications reported per nursing. AXEL COONEY CRNA Jan 23, 2021 09:50
--- NOTE | 2021-01-23 14:22 | OPERATIVE REPORT ---
DATE OF SERVICE: EGD SUMMARY I am her primary care physician. INDICATION FOR THE PROCEDURE: Dysphagia, reflux. DESCRIPTION OF PROCEDURE: The patient was placed in the left lateral decubitus position. The endoscope was inserted in the oral cavity and under direct visualization, esophagus was intubated. Endoscope was passed down the esophagus through the stomach and second portion of the duodenum. Careful inspection was made as the endoscope was withdrawn. The patient tolerated the procedure well. FINDINGS: The posterior pharynx, the arytenoid aperture and true and false vocal folds were unremarkable. Proximal, mid and distal esophagus were unremarkable. No evidence for erosive esophagitis, hiatal hernia or extrinsic compression was noted. The Z line was distinct and unremarkable. No evidence for Blakely's change, rings, webs or strictures were noted. The cardia and the fundus of the stomach were unremarkable. No evidence for hiatal hernia was present. There was some mild linear erythema of the antrum, possibly related to her recent vomiting; however, biopsy was obtained and submitted for histopathology and Helicobacter. No evidence for peptic ulcer disease was noted. The pylorus, the pyloric channel, the duodenal bulb and second portion of the duodenum were unremarkable. ASSESSMENT: Mild linear areas of erythema noted in the antrum, likely related to recent episodes of vomiting. This was an otherwise unremarkable EGD evaluation. Biopsy is pending from the antrum for Helicobacter and histopathology. The patient was reassured by today's findings. Job ID: [id number] DocumentID: [id number] Dictated Date: 01/23/2021 09:03:51 Import Export Coordinator Date: 01/23/2021 14:21:37 Dictated By: JOSE SHORE MD [facility]
--- NOTE | 2021-01-24 11:42 | HISTORY AND PHYSICAL ---
DATE OF SERVICE: EGD HISTORY AND PHYSICAL HISTORY OF PRESENT ILLNESS: The patient is a 40-year-old black female reporting a several month history of increasing epigastric pain with intermittent dysphagia, predominantly to solids. If she eats soft foods, smaller volumes symptoms are somewhat better. She denies waking up with symptoms. Denies weight loss, melena or bright red blood per rectum. In review of her electronic medical record. She had had [address] Davis in 2011, which did not reveal evidence for erosive esophagitis. There was no report of hiatal hernia with some mild antral erythema without evidence for peptic ulcer disease at that time. She denies aspirin or nonsteroidal medication usage. She has associated abdominal pain, predominantly epigastric. She denies waking up with coughing or choking. PAST SURGICAL HISTORY: Significant for a cholecystectomy and appendectomy and a total abdominal hysterectomy, latter done reportedly for benign reasons. No history of malignancy. PHYSICAL EXAMINATION: GENERAL: Reveals a pleasant, but anxious, overweight black female in no acute distress. VITAL SIGNS: Weight 254.4 pounds, which was up 7 pounds compared to a weight just 9 days ago. Blood pressure 136/80. HEENT: Unremarkable. Sclerae nonicteric. CHEST: Clear. CARDIOVASCULAR: Regular rate and rhythm without murmur, S3 or S4. ABDOMEN: Soft, supple epigastric pain with guarding, but no rebound noted. No mass or organomegaly. Bowel sounds positive. Left lower quadrant pain to palpation as well without mass, although obesity decreases the sensitivity for mass detection. EXTREMITIES: Reveal no cyanosis, clubbing or edema. LABORATORY DATA: Blood tests from November revealed minimal AST elevation at 41. Minimal total protein elevation at 8.2. The remainder of the chemistry panel was normal with a lipase of 13 and an amylase of 91, normal as well. ASSESSMENT AND PLAN: For further evaluation of dysphagia and epigastric pain, the patient is being set up for EGD evaluation with review of electronic medical record and evaluation, a little over 25 minutes care time spent. Job ID: [id number] DocumentID: [id number] Dictated Date: 01/16/2021 08:43:06 Customer Service Sales Associate Date: 01/16/2021 10:07:12 Dictated By: JOSE SHORE MD <Dictated by JOSE SHORE MD> <Electronically signed by JOSE SHORE MD> 01/19/21 1100 [facility]
== END 2021-01-23 08:57 | disposition home or self-care (01) ==
LOC: ENDO 06:25
PROVIDERS: ATTEND Internal Medicine
DX: K21.9 Gastro-esophageal reflux disease without esophagitis (principal); K31.89 Other diseases of stomach and duodenum; E66.9 Obesity, unspecified; F32.9 Major depressive disorder, single episode, unspecified; E11.9 Type 2 diabetes mellitus without complications; M79.7 Fibromyalgia; F41.9 Anxiety disorder, unspecified; Z90.49 Acquired absence of other specified parts of digestive tract; Z90.710 Acquired absence of both cervix and uterus; Z79.899 Other long term (current) drug therapy; Z20.822 Contact with and (suspected) exposure to COVID-19; Z90.89 Acquired absence of other organs
CPT/HCPCS: 88305

== ENCOUNTER 2021-03-23 02:35 | Emergency (ER) | payer MEDICARE, MEDICAID ==
[~2021-03-23] VITALS: Ht 180.3 cm; Wt 104.0 kg
--- NOTE | 2021-03-23 03:00 | ED Cough/URI ---
General Chief Complaint: Cough/Cold/Flu Symptoms Stated Complaint: CP,VOMITING,COUGH,CONGESTION,SORE THROAT Source: patient History of Present Illness Date Seen by Provider: Mar 23, 2021 Time Seen by Provider: 02:45 Initial Comments PT ARRIVES VIA POV FROM HOME STATES HE HAS BEEN SICK X 1 WEEK C/O FEVER--SUBJECTIVE, HAS NOT TAKEN HER TEMP AT ANY TIME C/O BODY ACHES C/O HEADACHE C/O COUGH AND CONGESTION C/O SORE THROAT C/O FATIGUE C/O SHORTNESS OF BREATH C/O NAUSEA AND VOMITING--VOMITED X 2 TODAY.NO DIARRHEA. NO ABDOMINAL PAIN NO LOSS OF TASTE OR SMELL CHEST HURTS WITH COUGHING ONLY NO SWELLING IN LEGS/FEET OR PAIN IN CALVES PT HAD [employer] COVID-19 VACCINE IN OCTOBER 2020 NO KNOWN SICK CONTACTS HAS NOT SOUGHT CARE [facility]NTIL [facility], BUT HAS AN APPOINTMENT AT 0900 THIS MORNING FOR THIS PROBLEM--"DIDN'T WANT TO WAIT" SYMPTOMS NO DIFFERENT TONIGHT HAS NOT TAKEN ANYTHING FOR SYMPTOMS AT ANY TIME NO HISTORY OF ASTHMA OR RESPIRATORY PROBLEMS PT IS DIABETIC AND HAS HTN PT WITH A MULTITUDE OF VISITS FOR VARIOUS COMPLAINTS PCP: DR. SHORE Allergies and Home Medications Allergies Coded Allergies: pregabalin (Verified Adverse Reaction, Intermediate, 12/07/16) Rhabdomyolysis meperidine (Verified Adverse Reaction, Mild, NAUSEA, 12/07/16) morphine (Verified Adverse Reaction, Mild, NAUSEA, 09/13/07) Uncoded Allergies: STEROID PILLS (Allergy, Unknown, 11/15/13) Home Medications Aripiprazole 20 Mg Tablet, 20 MG PO DAILY, (Reported) Famotidine 20 Mg Tablet, 20 MG PO BID, (Reported) Methocarbamol 750 Mg Tablet, 750 MG PO Q4H PRN for PAIN-MODERATE (5-7) Prescribed by: RAFA ALVARENGA on 05/18/20 192 Ondansetron 4 Mg Tab.rapdis, 4 MG PO Q6H PRN for NAUSEA/VOMITING Prescribed by: NANCY FLYNN on 08/08/19 1409 Promethazine HCl 25 Mg Tablet, 25 MG PO Q6H PRN for NAUSEA/VOMITING Prescribed by: NANCY FLYNN on 10/02/20 1352 Patient Home Medication List Home Medication List Reviewed: Yes Review of Systems Review of Systems Constitutional: see HPI, fever, malaise, weakness EENTM: see HPI, nose congestion, throat pain Respiratory: see HPI, cough, short of breath Cardiovascular: see HPI, chest pain Gastrointestinal: see HPI; No abdominal pain, No diarrhea; nausea, vomiting Genitourinary: no symptoms reported Musculoskeletal: see HPI Skin: no symptoms reported Psychiatric/Neurological: See HPI, Headache Hematologic/Lymphatic: No Symptoms Reported Immunological/Allergic: no symptoms reported Past Rkshtyn-Ogfusz-Vcpuzs Hx Patient Social History Tobacco Use?: Yes (SMOKES AT LEAST 3 CIGARS / DAY) Tobacco type used: Cigars Smoking Status: Current Everyday Smoker Substance use?: No Alcohol Use?: No Immunizations Up To Date Tetanus Booster (TDap): Unknown Seasonal Allergies Seasonal Allergies: Yes Past Medical History Surgery/Hospitalization HX: EGD 01/23/[address] 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 Sexually Transmitted Disease: No Genitourinary: No Gastrointestinal: Yes (CHRONIC NAUSEA AND ABDOMINAL PAIN ) Gastroesophageal Reflux, Diverticulosis Musculoskeletal: Yes Fibromyalgia, Chronic Back Pain Endocrine: Yes Diabetes, Non-Insulin dep HEENT: No Cancer: No Psychosocial: Yes Anxiety, Depression Integumentary: No Blood Disorders: No Family Medical History Cancer Cataract Family history: Allergy Family history: Arthritis Family history: Asthma Family history: Breast disease Family history: Diabetes mellitus Family history: Hypertension Family history: Osteoporosis Family history: Thyroid disorder Headache Heart disease Hypercholesterolemia Psychotic disorder Seizure disorder No Family History of: Abdominal aortic aneurysm [place]'s disease Alcoholism Aphasia Cancer of colon Chest pain Congenital heart disease Congestive heart failure Cystic fibrosis Dementia Dysphagia Family history: Alzheimer's disease Family history: Cardiovascular disease Family history: Coronary thrombosis Family history: Gastrointestinal disease Family history: Glaucoma Hearing loss Hereditary disease History of - anemia History of - disorder History of - respiratory disease History of drug abuse Human immunodeficiency virus (HIV) seropositivity Infertile Kidney disease Malignant neoplasm of lung Myocardial infarction Parkinson's disease Prostate cancer Stroke Tuberculosis Visual impairment Physical Exam Vital Signs - First Documented 03/23/21 02:43 Temp 37.8 Pulse 81 Resp 20 B/P (MAP) 106/85 (92) Pulse Ox 100 O2 Delivery Room Air Capillary Refill : Height: 5'11.00" Weight: 220lbs. 0oz. [id number]; 35.52 BMI Method:Stated General Appearance: WD/WN, no apparent distress, other (DOES NOT APPEAR ILL OR TO BE IN ANY DISCOMFORT OR DISTRESS. NO COUGH OR DYSPNEA NOTED. ) HEENT: PERRL/EOMI, normal ENT inspection, TMs normal, pharynx normal Neck: non-tender, full range of motion, supple, normal inspection Respiratory: normal breath sounds, no respiratory distress, no accessory muscle use Cardiovascular: regular rate, rhythm, no edema, no JVD, no murmur Gastrointestinal: non tender, soft Extremities: normal inspection, no pedal edema Neurologic/Psychiatric: store specialist II-XII nml as tested, no motor/sensory deficits, alert, oriented x 3, other (VERY FLAT AFFECT) Skin: normal color (PT IS BLACK), warm/dry Focused Exam Lactate Level 03/23/21 04:00: Lactic Acid Level 1.07 Lactic Acid Level Laboratory Tests Test 03/23/21 04:00 Lactic Acid Level 1.07 MMOL/L (0.50-2.00) Progress/Results/Core Measures Suspected Sepsis SIRS Temperature: Pulse: Respiratory Rate: Laboratory Tests 03/23/21 04:00: White Blood Count 10.0 Blood Pressure / Mean: 03/23/21 04:00: Lactic Acid Level 1.07 Laboratory Tests 03/23/21 04:00: Creatinine 0.89, Platelet Count 356, Total Bilirubin 0.2 Results/Orders Lab Results Laboratory Tests Test 03/23/21 02:50 03/23/21 04:00 Range/Units Influenza Type A (RT-PCR) Not Detected Not Detecte Influenza Type B (RT-PCR) Not Detected Not Detecte SARS-CoV-2 RNA (RT-PCR) Not Detected Not Detecte White Blood Count 10.0 4.3-11.0 10^3/uL Red Blood Count 4.65 3.80-5.11 10^6/uL Hemoglobin 13.2 11.5-16.0 g/dL Hematocrit 41 35-52 % Mean Corpuscular Volume 87 80-99 fL Mean Corpuscular Hemoglobin 28 25-34 pg Mean Corpuscular Hemoglobin Concent 33 32-36 g/dL Red Cell Distribution Width 16.3 H 10.0-14.5 % Platelet Count 356 130-400 10^3/uL Mean Platelet Volume 9.3 9.0-12.2 fL Immature Granulocyte % (Auto) 0 % Neutrophils (%) (Auto) 61 42-75 % Lymphocytes (%) (Auto) 31 12-44 % Monocytes (%) (Auto) 5 0-12 % Eosinophils (%) (Auto) 2 0-10 % Basophils (%) (Auto) 1 0-10 % Neutrophils # (Auto) 6.1 1.8-7.8 10^3/uL Lymphocytes # (Auto) 3.1 1.0-4.0 10^3/uL Monocytes # (Auto) 0.5 0.0-1.0 10^3/uL Eosinophils # (Auto) 0.2 0.0-0.3 10^3/uL Basophils # (Auto) 0.1 0.0-0.1 10^3/uL Immature Granulocyte # (Auto) 0.0 0.0-0.1 10^3/uL Erythrocyte Sedimentation Rate 52 H 0-20 MM/HR Sodium Level 142 135-145 MMOL/L Potassium Level 3.5 L 3.6-5.0 MMOL/L Chloride Level 102 98-107 MMOL/L Carbon Dioxide Level 27 21-32 MMOL/L Anion Gap 13 5-14 MMOL/L Blood Urea Nitrogen 12 7-18 MG/DL Creatinine 0.89 0.60-1.30 MG/DL Estimat Glomerular Filtration Rate 85 BUN/Creatinine Ratio 13 Glucose Level 93 70-105 MG/DL Lactic Acid Level 1.07 0.50-2.00 MMOL/L Calcium Level 9.8 8.5-10.1 MG/DL Corrected Calcium 10.0 8.5-10.1 MG/DL Magnesium Level 2.2 1.6-2.4 MG/DL Total Bilirubin 0.2 0.1-1.0 MG/DL Aspartate Amino Transf (AST/SGOT) 28 5-34 U/L Alanine Aminotransferase (ALT/SGPT) 40 0-55 U/L Alkaline Phosphatase 204 H 40-136 U/L Troponin I < 0.028 <0.028 NG/ML C-Reactive Protein High Sensitivity 1.65 H 0.00-0.50 MG/DL B-Type Natriuretic Peptide < 10.0 <100.0 PG/ML Total Protein 7.9 6.4-8.2 GM/DL Albumin 3.8 3.2-4.5 GM/DL Micro Results Microbiology 03/23/21 Blood Culture - Preliminary, Resulted No growth 03/23/21 Blood Culture - Preliminary, Resulted No growth My Orders Orders - SANAM FRANK DO Covid 19 Inhouse Test (03/23/21 02:45) Influenza A And B By Pcr (03/23/21 02:45) Ed Iv/Invasive Line Start (03/23/21 03:48) Monitor-Rhythm Ecg Trace Only (03/23/21 03:48) Chest 1 View, Ap/Pa Only (03/23/21 03:48) BNP (03/23/21 03:48) Cbc With Automated Diff (03/23/21 03:48) Comprehensive Metabolic Panel (03/23/21 03:48) Hs C Reactive Protein (03/23/21 03:48) Lactic Acid Analyzer (03/23/21 03:48) Magnesium (03/23/21 03:48) Blood Culture (03/23/21 03:48) Erythrocyte Sedimentation Rate (03/23/21 03:48) Troponin I (03/23/21 03:48) Ceftriaxone (Rocephin) (03/23/21 05:30) Vital Signs/I&O 03/23/21 03/23/21 03/23/21 02:43 02:55 05:33 Temp 37.8 Pulse 81 74 Resp 20 20 B/P (MAP) 106/85 (92) 102/62 Pulse Ox 100 100 O2 Delivery Room Air Room Air Room Air Capillary Refill : Progress Note : Progress Note PLACED IN ISOLATION ROOM PPE WORN AT ALL TIMES COVID-19 TESTING PERFORMED NO COUGH NO DYSPNEA NO HYPOXIA DISCUSSED IMPORTANCE OF FOLLOW AND RE-TESTING FOR COVID-19 IN 2-3 DAYS, SHE WOULD BE A CANDIDATE FOR REGENERON, BASED ON BMI> 25, PT IS A SMOKER AND HAS HISTORY OF HTN AND DIABETES Diagnostic Imaging Comments CXR--NO ACUTE PROCESS, PENDING RADIOLOGIST REVIEW Reviewed: Reviewed by Me Departure Impression Primary Impression: Person under investigation for COVID-19 Additional Impression: COVID-LIKE ILLNESS Disposition: HOME, SELF-CARE Condition: Stable Departure-Patient Inst. Decision time for Depature: 05:15 Referrals: JOSE SHORE MD (PCP/Family) Primary Care Physician Patient Instructions: COVID-19 Overview Add. Discharge Instructions: TYLENOL AND MOTRIN NEEDED FOR PAIN OR FEVER LOTS OF CLEAR LIQUIDS OVER THE COUNTER MUCINEX DM FOR COUGH KEEP YOUR APPOINTMENT WITH YOUR DR TODAY SCHEDULED All discharge instructions reviewed with patient and/or family. Voiced understanding. SANAM FRANK DO Mar 23, 2021 03:00
[2021-03-23 04:13] LABS: BASOPHILS # (AUTO) 0.1 10^3/uL (0.0-0.1); BASOPHILS % (AUTO) 1 % (0-10); EOSINOPHILS # (AUTO) 0.2 10^3/uL (0.0-0.3); EOSINOPHILS % (AUTO) 2 % (0-10); HEMATOCRIT 41 % (35-52); HEMOGLOBIN 13.2 g/dL (11.5-16.0); LYMPHOCYTES # (AUTO) 3.1 10^3/uL (1.0-4.0); LYMPHOCYTES % (AUTO) 31 % (12-44); MEAN CORPUSCULAR HEMOGLOBIN 28 pg (25-34); MEAN CORPUSCULAR HGB CONC 33 g/dL (32-36); MEAN CORPUSCULAR VOLUME 87 fL (80-99); MEAN PLATELET VOLUME 9.3 fL (9.0-12.2); MONOCYTES # (AUTO) 0.5 10^3/uL (0.0-1.0); MONOCYTES % (AUTO) 5 % (0-12); NEUTROPHILS # (AUTO) 6.1 10^3/uL (1.8-7.8); NEUTROPHILS % (AUTO) 61 % (42-75); PLATELET COUNT 356 10^3/uL (130-400)
[2021-03-23 04:24] LABS: ALBUMIN 3.8 GM/DL (3.2-4.5); CHLORIDE 102 MMOL/L (98-107); POTASSIUM 3.5 MMOL/L (3.6-5.0); SODIUM 142 MMOL/L (135-145)
[2021-03-23 04:25] LABS: CALCIUM 9.8 MG/DL (8.5-10.1)
[2021-03-23 04:26] LABS: GLUCOSE 93 MG/DL (70-105)
[2021-03-23 04:27] LABS: TOTAL PROTEIN 7.9 GM/DL (6.4-8.2)
[2021-03-23 04:28] LABS: BILIRUBIN,TOTAL 0.2 MG/DL (0.1-1.0); CARBON DIOXIDE 27 MMOL/L (21-32)
[2021-03-23 04:30] LABS: ALKALINE PHOSPHATASE 204 U/L (40-136); CREATININE SERUM 0.89 MG/DL (0.60-1.30); GFR ESTIMATED 85
[2021-03-23 04:31] LABS: BUN/CREATININE RATIO 13
[2021-03-23 04:33] LABS: ALANINE AMINOTRANSFERASE 40 U/L (0-55); MAGNESIUM 2.2 MG/DL (1.6-2.4)
[2021-03-23 04:49] LABS: ERYTHROCYTE SEDIMENTATION RATE 52 MM/HR (0-20)
[2021-03-23] MEDS ORDERED: cefTRIAXone 1,000 MG in WATER (STERILE) FOR INJECTION 10 ML IV ONE (05:30)
[2021-03-23 05:33] VITALS: BP 102/62
--- NOTE | 2021-03-23 07:15 | Diagnostic Imaging Report ---
INDICATION: Cough and fever COMPARISON: 12/23/2020 FINDINGS: Heart size and pulmonary vascularity are within normal limits, and the lungs are clear, bilaterally. IMPRESSION: Unremarkable chest. Dictated by: Dictated on workstation # [id number]
== END 2021-03-23 05:25 | disposition home or self-care (01) ==
LOC: EDUNIT# 02:35 → ER 02:40
DX: Z20.822 Contact with and (suspected) exposure to COVID-19 (principal); I10 Essential (primary) hypertension; K21.9 Gastro-esophageal reflux disease without esophagitis; F17.290 Nicotine dependence, other tobacco product, uncomplicated; Z79.899 Other long term (current) drug therapy
CPT/HCPCS: 36415; 71045; 80053; 83605; 83735; 83880; 84484; 85025; 85652; 86141; 87040; 87636; 93041

== ENCOUNTER 2021-08-20 12:29 | Emergency (ER) | payer MEDICARE, MEDICAID ==
[~2021-08-20] VITALS: Ht 180 cm; Wt 109.0 kg
[~2021-08-20 12:29] MED LIST changes: +CYCL10TA25; -CYCL10TA9; +DICY20TA PO; -DICY20TA10 PO; -ESTR2TAB; +ESTR2TAB3
[2021-08-20 13:25] VITALS: BP 134/87
[2021-08-20] MEDS ORDERED: fentaNYL INJ 100 MCG/2 ML AMP IVP STA (13:51)
--- NOTE | 2021-08-20 13:51 | ED Abdominal Pain ---
General Stated Complaint: CP,N/V,ABD PAIN,COUGH Source of Information: Patient Exam Limitations: No Limitations History of Present Illness Date Seen by Provider: Aug 20, 2021 Time Seen by Provider: 13:50 Initial Comments Patient is a 41-year-old female who presents to the ED with upper abdominal pain, chest pain since Friday. Pain in the chest described as pressure with an upper abdominal sharp pain. This has been intermittent since Friday. No association with eating. History of cholecystectomy, appendectomy, hysterectomy. History of hypertension, diabetes, high cholesterol, smoking and family cardiac history. She reports body aches and fatigue and generalized weakness. Denies any fever. No vomiting or diarrhea. She is scheduled to get a Covid swab today but was recommended come to ED for further evaluation of the pain. Patient with associated headache. Denies dizziness, neck pain, visual changes, sore throat, ear pain, cough, shortness of breath Allergies and Home Medications Allergies Coded Allergies: pregabalin (Verified Adverse Reaction, Intermediate, 12/07/16) Rhabdomyolysis meperidine (Verified Adverse Reaction, Mild, NAUSEA, 12/07/16) morphine (Verified Adverse Reaction, Mild, NAUSEA, 09/13/07) Uncoded Allergies: STEROID PILLS (Allergy, Unknown, 11/15/13) Patient Home Medication List Home Medication List Reviewed: Yes Alprazolam (Alprazolam) 1 Mg Tablet, (Reported) Entered as Reported by: JUS MARTINES on 12/07/16 0826 Amitriptyline HCl (Amitriptyline HCl) 150 Mg Tablet, (Reported) Entered as Reported by: BIMAL REY on 12/28/18638 Aripiprazole (Abilify) 20 Mg Tablet, 20 MG PO DAILY, (Reported) Entered as Reported by: MARLEY QUINONES on 01/15/211818 Estradiol (Estradiol Tablet) 2 Mg Tablet, (Reported) Entered as Reported by: JUS MARTINES on 12/07/16825 Famotidine (Pepcid) 20 Mg Tablet, 20 MG PO BID, (Reported) Entered as Reported by: MARLEY QUINONES on 01/15/211818 Gabapentin (Gabapentin) 100 Mg Capsule, (Reported) Entered as Reported by: BIMAL REY on 12/28/1839 Lovastatin (Lovastatin) 20 Mg Tablet, (Reported) Entered as Reported by: BIMAL REY on 12/28/18 0639 Methocarbamol (Robaxin-750) 750 Mg Tablet, 750 MG PO Q4H PRN for PAIN-MODERATE (5-7) Prescribed by: RAFA ALVARENGA on 05/18/201921 Ondansetron (Ondansetron Odt) 4 Mg Tab.rapdis, 4 MG PO Q6H PRN for NAUSEA/VOMITING Prescribed by: NANCY FLYNN on 08/08/19 1409 Paroxetine HCl (Paroxetine HCl) 20 Mg Tablet, (Reported) Entered as Reported by: BIMAL REY on 12/28/18 0639 Promethazine HCl (Promethazine Tablet) 25 Mg Tablet, 25 MG PO Q6H PRN for NAUSEA/VOMITING Prescribed by: NANCY FLYNN on 10/02/20 1352 Review of Systems Review of Systems Constitutional: chills; No fever; malaise, weakness EENTM: No Blurred Vision, No Double Vision Respiratory: Denies Cough Cardiovascular: Chest Pain; Denies Edema, Denies Irregular Heart Rate Gastrointestinal: Abdominal Pain; Denies Diarrhea, Denies Nausea, Denies Vomiting Genitourinary: Denies Burning, Denies Drainage, Denies Frequency Musculoskeletal: No back pain, No muscle pain, No muscle stiffness Skin: No change in color, No change in hair/nails Psychiatric/Neurological: Denies Anxiety All Other Systems Reviewed Negative Unless Noted: Yes Past Nsjdmya-Nfivno-Ogvgnf Hx Immunizations Up To Date Tetanus Booster (TDap): Unknown Seasonal Allergies Seasonal Allergies: Yes Past Medical History Surgery/Hospitalization HX: EGD 01/23/[address] 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 [employer] History: Hysterectomy Sexually Transmitted Disease: No Genitourinary: No Gastrointestinal: Yes (CHRONIC NAUSEA AND ABDOMINAL PAIN ) Gastroesophageal Reflux, Diverticulosis Musculoskeletal: Yes Fibromyalgia, Chronic Back Pain Endocrine: Yes Diabetes, Non-Insulin dep HEENT: No Cancer: No Psychosocial: Yes Anxiety, Depression Integumentary: No Blood Disorders: No Family Medical History Cancer Cataract Family history: Allergy Family history: Arthritis Family history: Asthma Family history: Breast disease Family history: Diabetes mellitus Family history: Hypertension Family history: Osteoporosis Family history: Thyroid disorder Headache Heart disease Hypercholesterolemia Psychotic disorder Seizure disorder No Family History of: Abdominal aortic aneurysm Carlisle's disease Alcoholism Aphasia Cancer of colon Chest pain Congenital heart disease Congestive heart failure Cystic fibrosis Dementia Dysphagia Family history: Alzheimer's disease Family history: Cardiovascular disease Family history: Coronary thrombosis Family history: Gastrointestinal disease Family history: Glaucoma Hearing loss Hereditary disease History of - anemia History of - disorder History of - respiratory disease History of drug abuse Human immunodeficiency virus (HIV) seropositivity Infertile Kidney disease Malignant neoplasm of lung Myocardial infarction Parkinson's disease Prostate cancer Stroke Tuberculosis Visual impairment Physical Exam Vital Signs Vital Signs - First Documented 08/20/21 13:25 Temp 36.9 Pulse 71 Resp 16 B/P (MAP) 134/87 (103) Pulse Ox 97 O2 Delivery Room Air Capillary Refill : Height/Weight/BMI Height: 5'11.00" Weight: 220lbs. 0oz. 99.810549ys; 31.00 BMI Method:Stated General Appearance: WD/WN, no apparent distress HEENT: PERRL/EOMI, normal ENT inspection, TMs normal Neck: non-tender, full range of motion, supple, normal inspection Respiratory: chest non-tender, lungs clear, normal breath sounds, no respiratory distress, no accessory muscle use Cardiovascular: regular rate, rhythm, no edema, no gallop, no JVD Gastrointestinal: normal bowel sounds, soft, no organomegaly, no pulsatile mass, tenderness (Epigastric tenderness on palpation.) Extremities: normal range of motion, non-tender, normal inspection, no pedal edema, no calf tenderness Back: normal inspection, no CVA tenderness Skin: normal color, warm/dry Progress/Results/Core Measures Results/Orders Lab Results Laboratory Tests Test 08/20/21 13:40 08/20/21 13:50 08/20/21 14:52 Range/Units Influenza Type A (RT-PCR) Not Detected Not Detecte Influenza Type B (RT-PCR) Not Detected Not Detecte SARS-CoV-2 RNA (RT-PCR) Not Detected Not Detecte White Blood Count 9.8 4.3-11.0 10^3/uL Red Blood Count 5.03 3.80-5.11 10^6/uL Hemoglobin 14.2 11.5-16.0 g/dL Hematocrit 42 35-52 % Mean Corpuscular Volume 84 80-99 fL Mean Corpuscular Hemoglobin 28 25-34 pg Mean Corpuscular Hemoglobin Concent 34 32-36 g/dL Red Cell Distribution Width 18.2 H 10.0-14.5 % Platelet Count 313 130-400 10^3/uL Mean Platelet Volume 9.0 9.0-12.2 fL Immature Granulocyte % (Auto) 0 % Neutrophils (%) (Auto) 61 42-75 % Lymphocytes (%) (Auto) 31 12-44 % Monocytes (%) (Auto) 6 0-12 % Eosinophils (%) (Auto) 2 0-10 % Basophils (%) (Auto) 1 0-10 % Neutrophils # (Auto) 5.9 1.8-7.8 10^3/uL Lymphocytes # (Auto) 3.0 1.0-4.0 10^3/uL Monocytes # (Auto) 0.6 0.0-1.0 10^3/uL Eosinophils # (Auto) 0.2 0.0-0.3 10^3/uL Basophils # (Auto) 0.1 0.0-0.1 10^3/uL Immature Granulocyte # (Auto) 0.0 0.0-0.1 10^3/uL Sodium Level 139 135-145 MMOL/L Potassium Level 3.7 3.6-5.0 MMOL/L Chloride Level 102 98-107 MMOL/L Carbon Dioxide Level 25 21-32 MMOL/L Anion Gap 12 5-14 MMOL/L Blood Urea Nitrogen 11 7-18 MG/DL Creatinine 0.83 0.60-1.30 MG/DL Estimat Glomerular Filtration Rate 91 BUN/Creatinine Ratio 13 Glucose Level 92 70-105 MG/DL Calcium Level 9.7 8.5-10.1 MG/DL Corrected Calcium 9.5 8.5-10.1 MG/DL Magnesium Level 2.0 1.6-2.4 MG/DL Total Bilirubin 0.3 0.1-1.0 MG/DL Aspartate Amino Transf (AST/SGOT) 20 5-34 U/L Alanine Aminotransferase (ALT/SGPT) 32 0-55 U/L Alkaline Phosphatase 165 H 40-136 U/L Total Creatine Kinase 121 29-168 U/L Troponin I < 0.028 <0.028 NG/ML C-Reactive Protein High Sensitivity 1.71 H 0.00-0.50 MG/DL Total Protein 8.2 6.4-8.2 GM/DL Albumin 4.2 3.2-4.5 GM/DL Lipase 13 8-78 U/L Urine Color YELLOW Urine Clarity CLEAR Urine pH 6.0 5-9 Urine Specific [place] 1.015 L 1.016-1.022 Urine Protein NEGATIVE NEGATIVE Urine Glucose (UA) NEGATIVE NEGATIVE Urine Ketones NEGATIVE NEGATIVE Urine Nitrite POSITIVE H NEGATIVE Urine Bilirubin NEGATIVE NEGATIVE Urine Urobilinogen 0.2 < = 1.0 MG/DL Urine Leukocyte Esterase NEGATIVE NEGATIVE Urine RBC (Auto) TRACE-I H NEGATIVE Urine RBC 0-2 /HPF Urine WBC NONE /HPF Urine Squamous Epithelial Cells 5-10 /HPF Urine Crystals NONE /LPF Urine Bacteria LARGE H /HPF Urine Casts NONE /LPF Urine Mucus NEGATIVE /LPF Urine Culture Indicated YES My Orders Orders - MARIANA GUNN Covid 19 Inhouse Test (08/20/21 13:40) Influenza A And B By Pcr (08/20/21 13:40) Cbc With Automated Diff (08/20/21 13:47) Comprehensive Metabolic Panel (08/20/21 13:47) Lipase (08/20/21 13:47) Troponin I Nicole (08/20/21 13:47) Creatine Kinase (08/20/21 13:47) Hs C Reactive Protein (08/20/21 13:47) Chest 1 View, Ap/Pa Only (08/20/21 13:47) Magnesium (08/20/21 13:47) Ua Culture If Indicated (08/20/21 13:47) Ondansetron Injection (Zofran Injectio (08/20/21 14:00) Fentanyl Inj (Sublimaze Injection) (08/20/21 13:51) Ondansetron Injection (Zofran Injectio (08/20/21 15:15) Lidocaine 2% Viscous 15 Ml (Xylocaine Vi (08/20/21 15:15) Antacid Suspension (Mylanta Suspension (08/20/21 15:15) Ct Abdomen/Pelvis W (08/20/21 15:05) Iohexol Injection (Omnipaque 350 Mg/Ml 1 (08/20/21 15:15) Received Contrast (Hold Metformin- Contr (08/20/21 15:15) Sodium Chloride Flush (Catheter Flush Sy (08/20/21 15:15) Ns (Ivpb) (Sodium Chloride 0.9% Ivpb Bag (08/20/21 15:15) Urine Culture (08/20/21 14:52) Medications Given in ED Current Medications Medications Dose Ordered Sig/Cali Route Start Time Stop Time Status Last Admin Dose Admin Al Hydrox/Mg Hydrox/Simethicone 30 ml ONCE ONCE PO 08/20/21 15:15 08/20/21 15:16 DC 08/20/21 15:51 30 ML Iohexol 100 ml ONCE ONCE IV 08/20/21 15:15 08/20/21 15:18 DC 08/20/21 15:31 100 ML Lidocaine HCl 15 ml ONCE ONCE PO 08/20/21 15:15 08/20/21 15:16 DC 08/20/21 15:51 15 ML Ondansetron HCl 4 mg ONCE ONCE IVP 08/20/21 14:00 08/20/21 14:01 DC 08/20/21 13:56 4 MG Ondansetron HCl 4 mg ONCE ONCE IVP 08/20/21 15:15 08/20/21 15:16 DC 08/20/21 15:51 4 MG Sodium Chloride 10 ml NEEDED PRN IV 08/20/21 15:15 08/20/21 15:31 10 ML Sodium Chloride 100 ml ONCE ONCE IV 08/20/21 15:15 08/20/21 15:18 DC 08/20/21 15:31 80 ML Vital Signs/I&O 08/20/21 13:25 Temp 36.9 Pulse 71 Resp 16 B/P (MAP) 134/87 (103) Pulse Ox 97 O2 Delivery Room Air Departure Communication (Admissions) Patient with upper abdominal pain and chest pain. Patient with flulike symptoms. Patient vital signs stable. Patient with cardiac risk factors. Cardiac work-up was ordered. EKG sinus rhythm. She is 76 bpm. Cardiac work-up unremarkable. Chest x-ray negative for pneumonia, pneumothorax. She does have some upper abdominal tenderness on palpation. She was given aspirin. Patient with normal lipase, white blood count. History of cholecystectomy and appendectomy and hysterectomy. Due to the continued pain and nausea medication CT abdomen pelvis was ordered. No acute abnormality noted. Was given GI cocktail with resolution of pain and nausea. Tolerating p.o. fluid at bedside. She states that seems to be worse after she eats or drink. Discussed potential gastritis, ulcer. She has no diffuse ST elevation noted on EKG to suggest pericarditis. No or worsening pain with laying back and or diminish with sitti ng up or leaning forward. No shortness of breath. She is not hypotensive. she has no chest wall tenderness suggesting costochondritis. Concerning for more of a viral infection at this time. Patient does have a PPI she will take at home. Her primary care physician ordered nausea medication for at home. Follow-up your PCP in 2 to 3 days for reevaluation. Return precaution were discussed with patient. Vital signs stable Impression Primary Impression: Abdominal pain Disposition: 01 HOME, SELF-CARE Condition: Stable Departure-Patient Inst. Decision time for Depature: 16:14 Referrals: JOSE SHORE MD (PCP/Family) Primary Care Physician Patient Instructions: Abdominal Pain, Adult ED MARIANA GUNN Aug 20, 2021 13:51
[2021-08-20 13:57] LABS: BASOPHILS # (AUTO) 0.1 10^3/uL (0.0-0.1); BASOPHILS % (AUTO) 1 % (0-10); EOSINOPHILS # (AUTO) 0.2 10^3/uL (0.0-0.3); EOSINOPHILS % (AUTO) 2 % (0-10); HEMATOCRIT 42 % (35-52); HEMOGLOBIN 14.2 g/dL (11.5-16.0); LYMPHOCYTES % (AUTO) 31 % (12-44); MEAN CORPUSCULAR HEMOGLOBIN 28 pg (25-34); MEAN CORPUSCULAR HGB CONC 34 g/dL (32-36); MEAN CORPUSCULAR VOLUME 84 fL (80-99); MONOCYTES # (AUTO) 0.6 10^3/uL (0.0-1.0); MONOCYTES % (AUTO) 6 % (0-12); NEUTROPHILS # (AUTO) 5.9 10^3/uL (1.8-7.8); NEUTROPHILS % (AUTO) 61 % (42-75); PLATELET COUNT 313 10^3/uL (130-400); WHITE BLOOD COUNT 9.8 10^3/uL (4.3-11.0)
[2021-08-20] MEDS ORDERED: ONDANSETRON 4 MG/2 ML (SDV) Z0FRAN IVP ONE ×2 (14:00→15:15)
[2021-08-20] MEDS ORDERED: morphine INJ 10 MG/ML 1ML (SYR OR VIAL) IVP ONE (14:00)
[2021-08-20 14:12] LABS: ALBUMIN 4.2 GM/DL (3.2-4.5)
[2021-08-20 14:13] LABS: CHLORIDE 102 MMOL/L (98-107); POTASSIUM 3.7 MMOL/L (3.6-5.0); SODIUM 139 MMOL/L (135-145)
[2021-08-20 14:14] LABS: CALCIUM 9.7 MG/DL (8.5-10.1)
[2021-08-20 14:15] LABS: GLUCOSE 92 MG/DL (70-105); TOTAL PROTEIN 8.2 GM/DL (6.4-8.2)
[2021-08-20 14:16] LABS: CARBON DIOXIDE 25 MMOL/L (21-32)
[2021-08-20 14:17] LABS: BILIRUBIN,TOTAL 0.3 MG/DL (0.1-1.0)
[2021-08-20 14:18] LABS: ALKALINE PHOSPHATASE 165 U/L (40-136)
[2021-08-20 14:19] LABS: CREATININE SERUM 0.83 MG/DL (0.60-1.30); GFR ESTIMATED 91
[2021-08-20 14:20] LABS: BUN/CREATININE RATIO 13
[2021-08-20 14:22] LABS: ALANINE AMINOTRANSFERASE 32 U/L (0-55)
[2021-08-20 14:23] LABS: CREATINE KINASE 121 U/L (29-168); LIPASE 13 U/L (8-78)
--- NOTE | 2021-08-20 14:24 | Diagnostic Imaging Report ---
INDICATION: Chest pain and headache. TIME OF EXAM: 2:03 PM. COMPARISON: Correlation is made with the prior chest from 03/23/2021. FINDINGS: The heart size is normal. The pulmonary vascularity is unremarkable. The lungs are clear. No infiltrate, effusion, or pneumothorax is detected. IMPRESSION: No acute cardiopulmonary process is detected. Dictated by: Dictated on workstation # [id number]
[2021-08-20 15:02] LABS: BILIRUBIN,URINE NEGATIVE (NEGATIVE); CLARITY,URINE CLEAR; COLOR,URINE YELLOW; GLUCOSE, URINE (UA) NEGATIVE (NEGATIVE); KETONES,URINE NEGATIVE (NEGATIVE); LEUKOCYTE ESTERASE ,URINE NEGATIVE (NEGATIVE); NITRITE,URINE POSITIVE (NEGATIVE); PROTEIN,URINE NEGATIVE (NEGATIVE)
[2021-08-20] MEDS ORDERED: CATHETER FLUSH 10 ML SYR IV PRN (15:15)
[2021-08-20] MEDS ORDERED: ANTACID SUSP 30 ML UDC (MYLANTA) PO ONE (15:15)
[2021-08-20] MEDS ORDERED: NS 100 ML (IVPB) BAG IV ONE (15:15)
[2021-08-20] MEDS ORDERED: IOHEXOL 350 MG/ML 100 ML (OMNIPAQUE 350) VIAL IV ONE (15:15)
[2021-08-20] MEDS ORDERED: LIDOCAINE 2% VISCOUS 15 ML UDC PO ONE (15:15)
[2021-08-20] MEDS ORDERED: HOLD METFORMIN - RECEIVED CONTRAST 20 ML VIAL IV SCH (15:15)
[2021-08-20 15:16] LABS: BACTERIA,URINE LARGE /HPF; RBC,URINE 0-2 /HPF
--- NOTE | 2021-08-20 15:49 | Diagnostic Imaging Report ---
PROCEDURE: CT abdomen and pelvis with contrast. TECHNIQUE: Multiple contiguous axial images were obtained through the abdomen and pelvis after administration of intravenous contrast. Auto Exposure Controls were utilized during the CT exam to meet ALARA standards for radiation dose reduction. All CT scans use one or more of the following dose optimizing techniques: Automated exposure control, MA and/or KvP adjustment based on patient size and exam type or iterative reconstruction. INDICATION: Nausea and abdominal pain for three days as well as headache. COMPARISON: Correlation is made with prior noncontrast CT abdomen and pelvis study from 09/07/2019. FINDINGS: Lung bases are clear. The liver shows diffuse low density consistent with hepatic steatosis. No discrete liver mass is detected. Gallbladder is surgically absent. No biliary ductal dilatation is seen. Pancreas and spleen are unremarkable. No adrenal mass is detected. Kidneys are unremarkable. Aorta is nonaneurysmal. Bowel loops are normal in caliber. There is no evidence of obstruction. No free fluid in the abdomen or pelvis is identified. No inflammatory changes are seen. Bladder is decompressed. The uterus appears to be surgically absent. Bony structures are nonacute. IMPRESSION: 1. Hepatic steatosis and status post cholecystectomy. 2. Status post hysterectomy. 3. No acute feature in the abdomen or pelvis is identified. Dictated by: Dictated on workstation # [id number]
== END 2021-08-20 16:21 | disposition home or self-care (01) ==
LOC: EDUNIT# 12:29 → ER 12:30
DX: R10.13 Epigastric pain (principal); I10 Essential (primary) hypertension; K21.9 Gastro-esophageal reflux disease without esophagitis; F41.9 Anxiety disorder, unspecified; F32.9 Major depressive disorder, single episode, unspecified; E11.9 Type 2 diabetes mellitus without complications; E78.00 Pure hypercholesterolemia, unspecified; Z20.822 Contact with and (suspected) exposure to COVID-19; Z79.899 Other long term (current) drug therapy
CPT/HCPCS: 36415; 71045; 74177; 80053; 81000; 82550; 83690; 83735; 84484; 85025; 86141; 87077; 87088; 87186; 87636; 93005

== ENCOUNTER 2021-10-10 06:21 | Emergency (ER) | payer MEDICARE ==
[~2021-10-10 06:21] MED LIST changes: +FLUC100T10 PO; -FLUC100T6 PO
--- NOTE | 2021-10-10 06:42 | ED General ---
General Stated Complaint: COVID Source of Information: Patient, EMS Exam Limitations: No Limitations History of Present Illness Date Seen by Provider: Oct 10, 2021 Time Seen by Provider: 06:22 Initial Comments Patient to the ER by EMS from home with chief complaint of malaise, headache, body aches, sore throat, subjective fevers and chills for the past 3 days. She has a pertinent history of hypertension, diabetes type 2 on Metformin, fibromyalgia. She smokes typically 3 to 4 cigars a day when she is well. She is not having a cough shortness of air diarrhea or constipation. She does have some nausea without vomiting. She has not seen anybody to have any testing done yet. She has been using Tylenol and ibuprofen for her symptoms. Allergies and Home Medications Allergies Coded Allergies: pregabalin (Verified Adverse Reaction, Intermediate, 12/07/16) Rhabdomyolysis meperidine (Verified Adverse Reaction, Mild, NAUSEA, 12/07/16) morphine (Verified Adverse Reaction, Mild, NAUSEA, 09/13/07) Uncoded Allergies: STEROID PILLS (Allergy, Unknown, 11/15/13) Patient Home Medication List Home Medication List Reviewed: Yes Alprazolam (Alprazolam) 1 Mg Tablet, (Reported) Entered as Reported by: JUS MARTINES on 12/07/16825 Amitriptyline HCl (Amitriptyline HCl) 150 Mg Tablet, (Reported) Entered as Reported by: BIMAL REY on 12/28/18638 Aripiprazole (Abilify) 20 Mg Tablet, 20 MG PO DAILY, (Reported) Entered as Reported by: MARLEY QUINONES on 01/15/211818 Estradiol (Estradiol Tablet) 2 Mg Tablet, (Reported) Entered as Reported by: JUS MARTINES on 12/07/16825 Famotidine (Pepcid) 20 Mg Tablet, 20 MG PO BID, (Reported) Entered as Reported by: MARLEY QUINONES on 01/15/211818 Gabapentin (Gabapentin) 100 Mg Capsule, (Reported) Entered as Reported by: BIMAL REY on 12/28/18638 Lovastatin (Lovastatin) 20 Mg Tablet, (Reported) Entered as Reported by: BIMAL REY on 12/28/18638 Methocarbamol (Robaxin-750) 750 Mg Tablet, 750 MG PO Q4H PRN for PAIN-MODERATE (5-7) Prescribed by: RAFA ALVARENGA on 05/18/20 1922 Ondansetron (Ondansetron Odt) 4 Mg Tab.rapdis, 4 MG PO Q6H PRN for NAUSEA /VOMITING Prescribed by: NANCY FLYNN on 08/08/19 1409 Paroxetine HCl (Paroxetine HCl) 20 Mg Tablet, (Reported) Entered as Reported by: BIMAL REY on 12/28/18 0639 Promethazine HCl (Promethazine Tablet) 25 Mg Tablet, 25 MG PO Q6H PRN for NAUSEA/VOMITING Prescribed by: NANCY FLYNN on 10/02/20 1352 Review of Systems Review of Systems Constitutional: chills; No diaphoresis; fever, malaise EENTM: No ear discharge, No ear pain Respiratory: No cough, No phlegm, No short of breath Cardiovascular: No edema Gastrointestinal: No abdominal pain, No constipation, No diarrhea; nausea; No vomiting Genitourinary: No discharge; dysuria Musculoskeletal: No back pain, No joint pain All Other Systems Reviewed Negative Unless Noted: Yes Past Oxckbmo-Fmlmnr-Rccauf Hx Patient Social History Tobacco Use?: Yes Tobacco type used: Cigars Use of E-Cig and/or Vaping dev: No Immunizations Up To Date Tetanus Booster (TDap): Unknown First/Initial COVID19 Vaccinat: 10/29 Seasonal Allergies Seasonal Allergies: Yes Past Medical History Surgery/Hospitalization HX: EGD 01/23/[address] 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 [employer] History: Hysterectomy Sexually Transmitted Disease: No Genitourinary: No Gastrointestinal: Yes (CHRONIC NAUSEA AND ABDOMINAL PAIN ) Gastroesophageal Reflux, Diverticulosis Musculoskeletal: Yes Fibromyalgia, Chronic Back Pain Endocrine: Yes Diabetes, Non-Insulin dep HEENT: No Cancer: No Psychosocial: Yes Anxiety, Depression Integumentary: No Blood Disorders: No Family Medical History Cancer Cataract Family history: Allergy Family history: Arthritis Family history: Asthma Family history: Breast disease Family history: Diabetes mellitus Family history: Hypertension Family history: Osteoporosis Family history: Thyroid disorder Headache Heart disease Hypercholesterolemia Psychotic disorder Seizure disorder No Family History of: Abdominal aortic aneurysm Eden's disease Alcoholism Aphasia Cancer of colon Chest pain Congenital heart disease Congestive heart failure Cystic fibrosis Dementia Dysphagia Family history: Alzheimer's disease Family history: Cardiovascular disease Family history: Coronary thrombosis Family history: Gastrointestinal disease Family history: Glaucoma Hearing loss Hereditary disease History of - anemia History of - disorder History of - respiratory disease History of drug abuse Human immunodeficiency virus (HIV) seropositivity Infertile Kidney disease Malignant neoplasm of lung Myocardial infarction Parkinson's disease Prostate cancer Stroke Tuberculosis Visual impairment Physical Exam Vital Signs Vital Signs - First Documented Capillary Refill : Height, Weight, BMI Height: 5'11.00" Weight: 220lbs. 0oz. [id number]; 33.00 BMI Method:Stated General Appearance: No Apparent Distress, WD/WN Eyes: Bilateral Eye Normal Inspection, Bilateral Eye PERRL, Bilateral Eye EOMI HEENT: PERRL/EOMI, TMs Normal; No Moist Mucous Membranes; Pharyngeal Erythema, Tonsillar Exudate Neck: Full Range of Motion, Normal Inspection, Supple Respiratory: Lungs Clear, Normal Breath Sounds, No Accessory Muscle Use, No Respiratory Distress Cardiovascular: Regular Rate, Rhythm, Normal Peripheral Pulses Extremity: Normal Capillary Refill, Normal Inspection, No Pedal Edema Neurologic/Psychiatric: Alert, Oriented x3, Normal Mood/Affect Progress/Results/Core Measures Suspected Sepsis SIRS Temperature: Pulse: Respiratory Rate: Laboratory Tests 10/10/21 06:30: White Blood Count 9.0 Blood Pressure / Mean: Laboratory Tests 10/10/21 06:30: Creatinine 0.81, Platelet Count 355, Total Bilirubin 0.4 Results/Orders Lab Results Laboratory Tests Test 10/10/21 06:25 10/10/21 06:30 10/10/21 06:33 Range/Units Urine Color YELLOW Urine Clarity SL CLOUDY Urine pH 7.0 5-9 Urine Specific [place] <=1.005 1.016-1.022 Urine Protein NEGATIVE NEGATIVE Urine Glucose (UA) NEGATIVE NEGATIVE Urine Ketones NEGATIVE NEGATIVE Urine Nitrite NEGATIVE NEGATIVE Urine Bilirubin NEGATIVE NEGATIVE Urine Urobilinogen 0.2 < = 1.0 MG/DL Urine Leukocyte Esterase NEGATIVE NEGATIVE Urine RBC (Auto) NEGATIVE NEGATIVE Urine RBC NONE /HPF Urine WBC 0-2 /HPF Urine Squamous Epithelial Cells 2-5 /HPF Urine Crystals NONE /LPF Urine Bacteria TRACE /HPF Urine Casts NONE /LPF Urine Mucus NEGATIVE /LPF Urine Culture Indicated NO White Blood Count 9.0 4.3-11.0 10^3/uL Red Blood Count 4.71 3.80-5.11 10^6/uL Hemoglobin 13.4 11.5-16.0 g/dL Hematocrit 40 35-52 % Mean Corpuscular Volume 85 80-99 fL Mean Corpuscular Hemoglobin 29 25-34 pg Mean Corpuscular Hemoglobin Concent 34 32-36 g/dL Red Cell Distribution Width 17.1 H 10.0-14.5 % Platelet Count 355 130-400 10^3/uL Mean Platelet Volume 9.3 9.0-12.2 fL Immature Granulocyte % (Auto) 0 % Neutrophils (%) (Auto) 62 42-75 % Lymphocytes (%) (Auto) 29 12-44 % Monocytes (%) (Auto) 7 0-12 % Eosinophils (%) (Auto) 2 0-10 % Basophils (%) (Auto) 1 0-10 % Neutrophils # (Auto) 5.5 1.8-7.8 10^3/uL Lymphocytes # (Auto) 2.6 1.0-4.0 10^3/uL Monocytes # (Auto) 0.6 0.0-1.0 10^3/uL Eosinophils # (Auto) 0.2 0.0-0.3 10^3/uL Basophils # (Auto) 0.1 0.0-0.1 10^3/uL Immature Granulocyte # (Auto) 0.0 0.0-0.1 10^3/uL Sodium Level 139 135-145 MMOL/L Potassium Level 3.9 3.6-5.0 MMOL/L Chloride Level 104 98-107 MMOL/L Carbon Dioxide Level 25 21-32 MMOL/L Anion Gap 10 5-14 MMOL/L Blood Urea Nitrogen 10 7-18 MG/DL Creatinine 0.81 0.60-1.30 MG/DL Estimat Glomerular Filtration Rate 93 BUN/Creatinine Ratio 12 Glucose Level 96 70-105 MG/DL Calcium Level 9.6 8.5-10.1 MG/DL Corrected Calcium 9.5 8.5-10.1 MG/DL Total Bilirubin 0.4 0.1-1.0 MG/DL Aspartate Amino Transf (AST/SGOT) 32 5-34 U/L Alanine Aminotransferase (ALT/SGPT) 48 0-55 U/L Alkaline Phosphatase 152 H 40-136 U/L C-Reactive Protein High Sensitivity 2.00 H 0.00-0.50 MG/DL Total Protein 7.8 6.4-8.2 GM/DL Albumin 4.1 3.2-4.5 GM/DL Influenza Type A (RT-PCR) Not Detected Not Detecte Influenza Type B (RT-PCR) Not Detected Not Detecte SARS-CoV-2 RNA (RT-PCR) Not Detected Not Detecte Group A Streptococcus Screen NEGATIVE NEGATIVE Glucometer 95 70-110 MG/DL My Orders Orders - NANCY FLYNN Ed Iv/Invasive Line Start (10/10/21 06:32) Lactated Ringers (Lr 1000 Ml Iv Solution (10/10/21 06:45) Ketorolac Injection (Toradol Injection) (10/10/21 06:45) Ondansetron Injection (Zofran Injectio (10/10/21 06:45) Cbc With Automated Diff (10/10/21 06:32) Comprehensive Metabolic Panel (10/10/21 06:32) Hs C Reactive Protein (10/10/21 06:32) Ua Culture If Indicated (10/10/21 06:32) Urine Bedside (10/10/21 06:32) Accucheck Stat ONCE (10/10/21 06:32) Rapid Strep A Screen (10/10/21 06:32) Covid 19 Inhouse Test (10/10/21 06:32) Influenza A And B By Pcr (10/10/21 06:32) Medications Given in ED Current Medications Medications Dose Ordered Sig/Cali Route Start Time Stop Time Status Last Admin Dose Admin Ketorolac Tromethamine 30 mg ONCE ONCE IVP 10/10/21 06:45 10/10/21 06:46 DC 10/10/21 06:57 30 MG Lactated Ringer's 1,000 ml @ 0 mls/hr Q0M ONCE IV 10/10/21 06:45 10/10/21 06:46 DC 10/10/21 06:57 1,000 MLS/HR Ondansetron HCl 4 mg ONCE ONCE IVP 10/10/21 06:45 10/10/21 06:46 DC 10/10/21 06:57 4 MG Vital Signs/I&O 10/10/21 10/10/21 06:25 06:25 Temp 36.8 Pulse 70 Resp 16 B/P (MAP) 163/94 (117) Pulse Ox 100 O2 Delivery Room Air Room Air Capillary Refill : Progress Note #1: Time: 06:42 Progress Note Aseptic vital signs. Toradol for her discomfort, Zofran for her nausea and a liter of fluids. Her oral mucosa is mildly dry and she has exudates on her tonsils. We will do a rapid strep, COVID influenza and some basic labs including an Accu-Chek. Since she has dysuria we will check her urine. Progress Note #2: Time: 07:13 Progress Note Her nausea is gone and her headache is significantly improved. She has about half of a liter of fluids in. We will put her on some Zofran for what is likely a viral illness and culture the strep swab. Departure Impression Primary Impression: Upper respiratory tract infection Qualified Codes: J06.9 - Acute upper respiratory infection, unspecified Disposition: HOME, SELF-CARE Condition: Stable Departure-Patient Inst. Decision time for Depature: 07:15 Referrals: JOSE SHORE MD (PCP/Family) Primary Care Physician Patient Instructions: Viral Syndrome (DC) Add. Discharge Instructions: Zofran/ondansetron 1 tablet every 6 hours under the tongue as necessary for nausea and or vomiting. Tylenol 1000 mg every 8 hours as necessary for headache or body aches. Ibuprofen 800 mg every 8 hours as necessary for headache or body aches. Drink plenty of fluids. Follow-up with your primary care doctor if symptoms not improving in 7 to 10 days. We will call you if your throat culture grows anything out in the next 2 to 3 days. Scripts Ondansetron (Ondansetron Odt) 4 Mg Tab.rapdis 4 MG PO Q6H PRN for NAUSEA/VOMITING, #8 TAB 0 Refills Prov: NANCY FLYNN 10/10/21 NANCY FLYNN Oct 10, 2021 06:42
[2021-10-10] MEDS ORDERED: ONDANSETRON 4 MG/2 ML (SDV) Z0FRAN IVP ONE (06:45)
[2021-10-10] MEDS ORDERED: LACTATED RINGERS 1,000 ML IV ONE (06:45)
[2021-10-10] MEDS ORDERED: KETOROLAC 30 MG/ML VIAL IVP ONE (06:45)
[2021-10-10 06:46] LABS: BASOPHILS # (AUTO) 0.1 10^3/uL (0.0-0.1); BASOPHILS % (AUTO) 1 % (0-10); EOSINOPHILS # (AUTO) 0.2 10^3/uL (0.0-0.3); EOSINOPHILS % (AUTO) 2 % (0-10); HEMATOCRIT 40 % (35-52); HEMOGLOBIN 13.4 g/dL (11.5-16.0); LYMPHOCYTES # (AUTO) 2.6 10^3/uL (1.0-4.0); LYMPHOCYTES % (AUTO) 29 % (12-44); MEAN CORPUSCULAR HEMOGLOBIN 29 pg (25-34); MEAN CORPUSCULAR HGB CONC 34 g/dL (32-36); MEAN CORPUSCULAR VOLUME 85 fL (80-99); MEAN PLATELET VOLUME 9.3 fL (9.0-12.2); MONOCYTES # (AUTO) 0.6 10^3/uL (0.0-1.0); MONOCYTES % (AUTO) 7 % (0-12); NEUTROPHILS # (AUTO) 5.5 10^3/uL (1.8-7.8); NEUTROPHILS % (AUTO) 62 % (42-75); PLATELET COUNT 355 10^3/uL (130-400)
[2021-10-10 06:49] LABS: BILIRUBIN,URINE NEGATIVE (NEGATIVE); CLARITY,URINE SL CLOUDY; COLOR,URINE YELLOW; GLUCOSE, URINE (UA) NEGATIVE (NEGATIVE); KETONES,URINE NEGATIVE (NEGATIVE); LEUKOCYTE ESTERASE ,URINE NEGATIVE (NEGATIVE); NITRITE,URINE NEGATIVE (NEGATIVE); PROTEIN,URINE NEGATIVE (NEGATIVE)
[2021-10-10 06:52] LABS: ALBUMIN 4.1 GM/DL (3.2-4.5); POTASSIUM 3.9 MMOL/L (3.6-5.0)
[2021-10-10 06:54] LABS: CALCIUM 9.6 MG/DL (8.5-10.1)
[2021-10-10 06:55] LABS: TOTAL PROTEIN 7.8 GM/DL (6.4-8.2)
[2021-10-10 06:56] LABS: BACTERIA,URINE TRACE /HPF; WBC,URINE 0-2 /HPF
[2021-10-10 06:57] LABS: BILIRUBIN,TOTAL 0.4 MG/DL (0.1-1.0)
[2021-10-10 06:59] LABS: CREATININE SERUM 0.81 MG/DL (0.60-1.30)
[2021-10-10] MEDS ORDERED: ONDA4TAB11 PO (07:17)
[2021-10-10 07:22] VITALS: BP 119/72
== END 2021-10-10 07:46 | disposition home or self-care (01) ==
LOC: EDUNIT# 06:21 → ER 06:22
DX: J06.9 Acute upper respiratory infection, unspecified (principal); E11.9 Type 2 diabetes mellitus without complications; Z79.84 Long term (current) use of oral hypoglycemic drugs; Z20.822 Contact with and (suspected) exposure to COVID-19; Z72.0 Tobacco use
CPT/HCPCS: 36415; 80053; 81000; 82947; 84703; 85025; 86141; 87430; 87636

== ENCOUNTER 2021-11-25 11:24 | Emergency (ER) | payer MEDICARE, MEDICAID ==
[~2021-11-25] VITALS: Ht 177 cm; Wt 100.0 kg
[2021-11-25 11:39] VITALS: BP_SYST 130; BP_SYST 131; BP_DIAS 89; BP_DIAS 91; BP_DIAS 98
[2021-11-25] MEDS ORDERED: LACTATED RINGERS 1,000 ML IV ONE (11:45)
--- NOTE | 2021-11-25 11:47 | ED GI ---
General Stated Complaint: DIZZY/WEAK/DIARRHEA X 1 MONTH/SOB Source of Information: Patient Exam Limitations: No Limitations History of Present Illness Date Seen by Provider: Nov 25, 2021 Time Seen by Provider: 11:27 Initial Comments The patient presents to the ER by private conveyance from home with chief complaint that she feels weak and dizzy today. She has not passed out. She says she been having loose watery stools for the past month. Patient states that every time she eats something it goes right through her and she has diarrhea shortly thereafter. She been using Lomotil twice a day without signifi cant relief of symptoms. She has followed up with Dr. Lopez's practitioner and at that time they discussed doing some stool studies but did not pursue them. She has had colonoscopies in the past which revealed a polyp that was benign as well as diverticulosis. She is having some discomfort in her low abdomen. She does not Drink from unsafe water sources. She has not left the [facility]. No sick contacts. She says she feels like she needs some IV fluids because of how dehydrated she feels. She gets dizzy when she stands up. She has a pertinent history of hysterectomy, cholecystectomy, appendectomy, ovarian cyst removal. Allergies and Home Medications Allergies Coded Allergies: pregabalin (Verified Adverse Reaction, Intermediate, 12/07/16) Rhabdomyolysis meperidine (Verified Adverse Reaction, Mild, NAUSEA, 12/07/16) morphine (Verified Adverse Reaction, Mild, NAUSEA, 09/13/07) Uncoded Allergies: STEROID PILLS (Allergy, Unknown, 11/15/13) Patient Home Medication List Home Medication List Reviewed: Yes Alprazolam (Alprazolam) 1 Mg Tablet, (Reported) Entered as Reported by: JUS MARTINES on 12/07/16 08 Amitriptyline HCl (Amitriptyline HCl) 150 Mg Tablet, (Reported) Entered as Reported by: BIMAL REY on 12/28/18 0639 Aripiprazole (Abilify) 20 Mg Tablet, 20 MG PO DAILY, (Reported) Entered as Reported by: MARLEY QUINONES on 01/15/211818 Estradiol (Estradiol Tablet) 2 Mg Tablet, (Reported) Entered as Reported by: JUS MARTINES on 12/07/16 08 Famotidine (Pepcid) 20 Mg Tablet, 20 MG PO BID, (Reported) Entered as Reported by: MARLEY QUINONES on 01/15/211818 Gabapentin (Gabapentin) 100 Mg Capsule, (Reported) Entered as Reported by: BIMAL REY on 12/28/18 06 Lovastatin (Lovastatin) 20 Mg Tablet, (Reported) Entered as Reported by: BIMAL REY on 12/28/18 0639 Methocarbamol (Robaxin-750) 750 Mg Tablet, 750 MG PO Q4H PRN for PAIN-MODERATE (5-7) Prescribed by: RAFA ALVARENGA on 05/18/20 192 Ondansetron (Ondansetron Odt) 4 Mg Tab.rapdis, 4 MG PO Q6H PRN for NAUSEA/VOMITING Prescribed by: NANCY FLYNN on 08/08/19 1409 Ondansetron (Ondansetron Odt) 4 Mg Tab.rapdis, 4 MG PO Q6H PRN for NAUSEA/VOMITING Prescribed by: NANCY FLYNN on 10/10/21 0717 Paroxetine HCl (Paroxetine HCl) 20 Mg Tablet, (Reported) Entered as Reported by: BIMAL REY on 12/28/18 06 Promethazine HCl (Promethazine Tablet) 25 Mg Tablet, 25 MG PO Q6H PRN for NAUSEA/VOMITING Prescribed by: NANCY FLYNN on 10/02/20 1352 Review of Systems Review of Systems Constitutional: No chills, No diaphoresis EENTM: No Blurred Vision, No Double Vision Respiratory: Denies Cough, Denies Orthopnea Cardiovascular: Denies Chest Pain, Denies Edema Gastrointestinal: See HPI; Denies Abdomen Distended; Abdominal Pain, Diarrhea, Nausea, Poor Appetite, Poor Fluid Intake; Denies Vomiting Genitourinary: Denies Burning, Denies Discharge Musculoskeletal: No back pain, No joint pain Psychiatric/Neurological: Denies Anxiety, Denies Depressed All Other Systems Reviewed Negative Unless Noted: Yes Past Cyxjqvi-Bmozvd-Lilyuz Hx Patient Social History Tobacco Use?: No Use of E-Cig and/or Vaping dev: No Substance use?: No Immunizations Up To Date Tetanus Booster (TDap): Unknown First/Initial COVID19 Vaccinat: 10/29 Seasonal Allergies Seasonal Allergies: Yes Past Medical History Surgery/Hospitalization HX: EGD 01/23/[address] LOPEZ--NO SIGNFICANT FINDINGS Surgeries: Yes (TEAR REPAIR AFTER VAG , DX LAP FOR ENDOMETRIOSIS/OVARIAN CYSTS,EGD) Abdominal, Appendectomy, Gallbladder, Hysterectomy, Oophorectomy Respiratory: No Cardiac: Yes (SYNCOPE DUE TO ANXIETY/STRESSFUL SITUATIONS) High Cholesterol, Hypertension, Syncope Neurological: Yes Headaches /Migraines 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 Disorders: Yes Female 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 Disorders: 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, Ovarian Cyst [employer] History: Hysterectomy Sexually Transmitted Disease: No Genitourinary: No Gastrointestinal: Yes (CHRONIC NAUSEA AND ABDOMINAL PAIN ) Gastroesophageal Reflux, Diverticulosis Musculoskeletal: Yes Fibromyalgia, Chronic Back Pain Endocrine: Yes Diabetes, Non-Insulin dep HEENT: No Cancer: No Psychosocial: Yes Anxiety, Depression Integumentary: No Blood Disorders: No Family Medical History Cancer Cataract Family history: Allergy Family history: Arthritis Family history: Asthma Family history: Breast disease Family history: Diabetes mellitus Family history: Hypertension Family history: Osteoporosis Family history: Thyroid disorder Headache Heart disease Hypercholesterolemia Psychotic disorder Seizure disorder No Family History of: Abdominal aortic aneurysm Lenin's disease Alcoholism Aphasia Cancer of colon Chest pain Congenital heart disease Congestive heart failure Cystic fibrosis Dementia Dysphagia Family history: Alzheimer's disease Family history: Cardiovascular disease Family history: Coronary thrombosis Family history: Gastrointestinal disease Family history: Glaucoma Hearing loss Hereditary disease History of - anemia History of - disorder History of - respiratory disease History of drug abuse Human immunodeficiency virus (HIV) seropositivity Infertile Kidney disease Malignant neoplasm of lung Myocardial infarction Parkinson's disease Prostate cancer Stroke Tuberculosis Visual impairment Physical Exam Vital Signs Vital Signs - First Documented 11/25/21 11:30 Temp 35.7 Pulse 88 Resp 18 B/P (MAP) 141/107 (118) Pulse Ox 99 Capillary Refill : Height/Weight/BMI Height: 5'11.00" Weight: 220lbs. 0oz. 99.743544gu; 33.00 BMI Method:Stated General Appearance: WD/WN, mild distress HEENT: PERRL/EOMI; No pharynx normal (Dry oral mucosa without retropharyngeal erythema exudate or swollen tonsils) Neck: full range of motion, normal inspection Respiratory: lungs clear, normal breath sounds, no respiratory distress, no accessory muscle use Cardiovascular: normal peripheral pulses, regular rate, rhythm Peripheral Pulses: 2+ Radial Pulses (R), 2+ Radial Pulses (L) Gastrointestinal: normal bowel sounds, non tender, soft, no organomegaly, no pulsatile mass; No guarding Extremities: normal inspection, normal capillary refill Neurologic/Psychiatric: alert, oriented x 3 Skin: normal color, warm/dry Progress/Results/Core Measures Results/Orders Lab Results Laboratory Tests Test 11/25/21 11:45 Range/Units White Blood Count 9.1 4.3-11.0 10^3/uL Red Blood Count 4.89 3.80-5.11 10^6/uL Hemoglobin 13.9 11.5-16.0 g/dL Hematocrit 42 35-52 % Mean Corpuscular Volume 86 80-99 fL Mean Corpuscular Hemoglobin 28 25-34 pg Mean Corpuscular Hemoglobin Concent 33 32-36 g/dL Red Cell Distribution Width 16.4 H 10.0-14.5 % Platelet Count 377 130-400 10^3/uL Mean Platelet Volume 9.3 9.0-12.2 fL Immature Granulocyte % (Auto) 0 % Neutrophils (%) (Auto) 58 42-75 % Lymphocytes (%) (Auto) 32 12-44 % Monocytes (%) (Auto) 7 0-12 % Eosinophils (%) (Auto) 2 0-10 % Basophils (%) (Auto) 1 0-10 % Neutrophils # (Auto) 5.3 1.8-7.8 10^3/uL Lymphocytes # (Auto) 2.9 1.0-4.0 10^3/uL Monocytes # (Auto) 0.6 0.0-1.0 10^3/uL Eosinophils # (Auto) 0.2 0.0-0.3 10^3/uL Basophils # (Auto) 0.1 0.0-0.1 10^3/uL Immature Granulocyte # (Auto) 0.0 0.0-0.1 10^3/uL Sodium Level 141 135-145 MMOL/L Potassium Level 3.6 3.6-5.0 MMOL/L Chloride Level 102 98-107 MMOL/L Carbon Dioxide Level 25 21-32 MMOL/L Anion Gap 14 5-14 MMOL/L Blood Urea Nitrogen 8 7-18 MG/DL Creatinine 0.79 0.60-1.30 MG/DL Estimat Glomerular Filtration Rate 96 BUN/Creatinine Ratio 10 Glucose Level 96 70-105 MG/DL Calcium Level 9.7 8.5-10.1 MG/DL Corrected Calcium 9.5 8.5-10.1 MG/DL Magnesium Level 2.3 1.6-2.4 MG/DL Total Bilirubin 0.3 0.1-1.0 MG/DL Aspartate Amino Transf (AST/SGOT) 31 5-34 U/L Alanine Aminotransferase (ALT/SGPT) 38 0-55 U/L Alkaline Phosphatase 150 H 40-136 U/L C-Reactive Protein High Sensitivity 2.04 H 0.00-0.50 MG/DL Total Protein 8.0 6.4-8.2 GM/DL Albumin 4.3 3.2-4.5 GM/DL My Orders Orders - NANCY FLYNN Orthostatic Vital Signs (Adult (11/25/21 11:37) Ed Iv/Invasive Line Start (11/25/21 11:37) Lactated Ringers (Lr 1000 Ml Iv Solution (11/25/21 11:45) Cbc With Automated Diff (11/25/21 11:37) Comprehensive Metabolic Panel (11/25/21 11:37) Hs C Reactive Protein (11/25/21 11:37) Magnesium (11/25/21 11:37) Medications Given in ED Current Medications Medications Dose Ordered Sig/Cali Route Start Time Stop Time Status Last Admin Dose Admin Lactated Ringer's 1,000 ml @ 0 mls/hr Q0M ONCE IV 11/25/21 11:45 11/25/21 11:46 DC 11/25/21 11:57 1,000 MLS/HR Vital Signs/I&O 11/25/21 11/25/21 11:30 11:39 Temp 35.7 Pulse 88 73 79 82 Resp 18 B/P (MAP) 141/107 (118) 131/91 (104) 130/98 (109) 131/89 (103) Pulse Ox 99 Progress Progress Note #1: Time: 11:46 Progress Note Orthostatic vital signs were nonrevealing. She does appear to be clinically dry although has aseptic vital signs. Plan to give her a liter of fluids. She has declined anything for nausea. We will collect a stool sample if she can give us one otherwise we can set her up for an outpatient stool sample. She may benefit from endoscopy. If her labs are little bit off will also consider a CT to rule out a diverticulitis. Progress Note #2: Time: 13:05 Progress Note About 500 cc of the fluids are in and the patient has urinated twice. She states she is feeling much better. We will send her some Phenergan to the pharmacy and instruct her to follow-up with primary care who does endoscopy for continued outpatient care. We have also instructed her to use loperamide instead of Lomotil. We will give her an outpatient order form for stool stud ies. Patient is okay with this plan Departure Impression Primary Impression: Dehydration Additional Impression: Gastroenteritis/colitis, infectious Disposition: 01 HOME, SELF-CARE Condition: Stable Departure-Patient Inst. Decision time for Depature: 13:06 Referrals: JOSE LOPEZ MD (PCP/Family) Primary Care Physician Patient Instructions: Diarrhea, Adult ED, Dehydration, Adult (DC) Add. Discharge Instructions: Drink plenty of fluids. This sports drinks such as Gatorade or Powerade are recommended. Try loperamide 2 tablets followed by 1 tablet every 4 hours afterwards that you are still having loose watery stools. Follow-up with Dr. Lopez if your symptoms do not alex in the next 1 to 2 days. If you capture a sample of liquid diarrhea you may return it to the lab along with the order form and the results will be forwarded to your primary care doctor. Copy Copies To 1: OJSE LOPEZ MD, TITUS J Nov 25, 2021 11:47
[2021-11-25 11:52] LABS: BASOPHILS # (AUTO) 0.1 10^3/uL (0.0-0.1); BASOPHILS % (AUTO) 1 % (0-10); EOSINOPHILS # (AUTO) 0.2 10^3/uL (0.0-0.3); EOSINOPHILS % (AUTO) 2 % (0-10); HEMATOCRIT 42 % (35-52); HEMOGLOBIN 13.9 g/dL (11.5-16.0); LYMPHOCYTES # (AUTO) 2.9 10^3/uL (1.0-4.0); LYMPHOCYTES % (AUTO) 32 % (12-44); MEAN CORPUSCULAR HEMOGLOBIN 28 pg (25-34); MEAN CORPUSCULAR HGB CONC 33 g/dL (32-36); MEAN CORPUSCULAR VOLUME 86 fL (80-99); MEAN PLATELET VOLUME 9.3 fL (9.0-12.2); MONOCYTES # (AUTO) 0.6 10^3/uL (0.0-1.0); MONOCYTES % (AUTO) 7 % (0-12); NEUTROPHILS # (AUTO) 5.3 10^3/uL (1.8-7.8); NEUTROPHILS % (AUTO) 58 % (42-75); PLATELET COUNT 377 10^3/uL (130-400); WHITE BLOOD COUNT 9.1 10^3/uL (4.3-11.0)
[2021-11-25 12:02] LABS: ALBUMIN 4.3 GM/DL (3.2-4.5); POTASSIUM 3.6 MMOL/L (3.6-5.0)
[2021-11-25 12:03] LABS: CALCIUM 9.7 MG/DL (8.5-10.1)
[2021-11-25 12:06] LABS: BILIRUBIN,TOTAL 0.3 MG/DL (0.1-1.0)
[2021-11-25 12:08] LABS: CREATININE SERUM 0.79 MG/DL (0.60-1.30)
[2021-11-25 12:11] LABS: MAGNESIUM 2.3 MG/DL (1.6-2.4)
[2021-11-25 13:19] VITALS: BP 130/84
== END 2021-11-25 13:19 | disposition home or self-care (01) ==
LOC: EDUNIT# 11:24 → ER 11:26
DX: E86.0 Dehydration (principal); K52.9 Noninfective gastroenteritis and colitis, unspecified; E11.9 Type 2 diabetes mellitus without complications; Z90.49 Acquired absence of other specified parts of digestive tract
CPT/HCPCS: 36415; 80053; 83735; 85025; 86141

== ENCOUNTER → 2021-12-04 | Outpatient (CLI) | payer MEDICAID, MEDICARE ==
--- NOTE | 2021-12-04 13:27 | Diagnostic Imaging Report ---
PROCEDURE: US Bilateral lower extremity arterial. TECHNIQUE: Multiple real-time grayscale images are obtained through both lower extremity arterial systems with color Doppler imaging and color Doppler spectral analysis. INDICATION: Claudication. COMPARISON: 06/07/2014. FINDINGS: Normal triphasic waveforms are visualized in the bilateral common femoral, profunda femoris, and superficial femoral arteries. Biphasic waveforms are seen in the bilateral popliteal arteries, posterior and anterior tibial arteries, and dorsalis pedis arteries. The peak systolic velocities within the bilateral lower extremity arterial systems is unremarkable. No focal stenosis is seen. Scattered atherosclerotic plaque is seen in the bilateral lower extremity arterial systems. IMPRESSION: 1. Normal triphasic and biphasic waveforms in the bilateral lower extremity arterial systems. No evidence of elevated flow velocities or focal stenosis. 2. Small amount of scattered atherosclerotic plaque in the bilateral lower extremity arterial systems. Dictated by: Dictated on workstation # [id number]
--- NOTE | 2021-12-04 17:16 | Diagnostic Imaging Report ---
PROCEDURE: Bilateral ABIs. REASON FOR EXAM: Lower extremity claudication. COMPARISON: None. TECHNIQUE: Segmental pressures and Doppler study with ankle brachial indices and toe brachial indices was performed at rest. Systolic blood pressure in the right brachial artery is 116 mm of Hg Systolic blood pressure in the left brachial artery is 119 mm of Hg Systolic blood pressure in the right posterior tibial artery is 124 mm of Hg The ankle brachial index (ALIYAH) on the right side is 1.04 at rest. Systolic blood pressure in the left posterior tibial artery is 138 mm of Hg The ankle brachial index (ALIYAH) on the left side is 1.16 at rest. Systolic blood pressure in the right great toe is 96 mm of Hg The toe brachial index (TBI) on the right side is 0.81 at rest. Systolic blood pressure in the left great toe is 86 mm of Hg The toe brachial index (TBI) on the left side is 0.72 at rest. The waveform in the right posterior tibial artery is biphasic The waveform in the right dorsalis pedis artery is biphasic The waveform in the left posterior tibial artery is biphasic The waveform in the left dorsalis pedis artery is biphasic Disease Severity and Ankle-Brachial Index (ALIYAH) ([facility] Vascular Laboratory Criteria) [place] [facility] March 2008;83(8):[id number] [email or web address] Disease severity Normal: At rest >0.9 After exercise >0.9 Mild: At rest 0.8-0.9 After exercise 0.5-0.9 Moderate: At rest 0.5-0.79 After exercise 0.15-0.49 Severe: At rest <0.5 After exercise <0.15 Disease Severity and Toe Brachial Index (TBI) 0.64 +/- .20 limbs normal 0.52 =/- .20 claudication in limbs 0.23 =/- .19 limbs with ulcers or ischemic rest pain IMPRESSION: 1.Normal bilateral ABIs. Dictated by: Dictated on workstation # [id number]
== END ==
LOC: RAD 10:15
PROVIDERS: ATTEND Nurse Practitioner Family
DX: I70.203 Unspecified atherosclerosis of native arteries of extremities, bilateral legs (principal); R20.2 Paresthesia of skin
CPT/HCPCS: 93922; 93925

== ENCOUNTER → 2022-02-12 | Outpatient (CLI) | payer MEDICARE ==
--- NOTE | 2022-02-12 12:54 | Diagnostic Imaging Report ---
INDICATION: Routine screening. COMPARISON: No prior mammograms are available for comparison. This is a baseline study. TECHNIQUE: 2D and 3D bilateral screening mammography was performed with CAD. FINDINGS: Both breasts are heterogeneously dense, limiting the sensitivity of mammography. No mass or malignant-appearing microcalcifications are seen. The axillae are unremarkable. IMPRESSION: No mammographic features suspicious for malignancy are identified. ACR BI-RADS Category 1: Negative. Result letter will be mailed to the patient. Note: At least 10% of breast cancer is not imaged by mammography. Dictated by: Dictated on workstation # [id number]
== END ==
LOC: RAD 07:30
PROVIDERS: ATTEND Nurse Practitioner Family
DX: Z12.31 Encounter for screening mammogram for malignant neoplasm of breast (principal)
CPT/HCPCS: 77063; 77067

== ENCOUNTER → 2022-02-22 | Outpatient (CLI) | payer MEDICARE ==
--- NOTE | 2022-02-22 09:59 | Diagnostic Imaging Report ---
INDICATION: Left neck mass Focused ultrasonography is performed in the left supraclavicular region. Correlation is made to study of 01/23/2017. There is no evidence of underlying mass, adenopathy or fluid collection. No significant architectural distortion is seen. IMPRESSION: Unremarkable focused left supraclavicular ultrasound. Dictated by: Dictated on workstation # [id number]
== END ==
LOC: RAD 08:33
PROVIDERS: ATTEND Nurse Practitioner Family
DX: R22.1 Localized swelling, mass and lump, neck (principal); R22.31 Localized swelling, mass and lump, right upper limb
CPT/HCPCS: 76536

== ENCOUNTER 2022-03-25 12:28 | Emergency (ER) | payer MEDICARE ==
[~2022-03-25] VITALS: Ht 180.3 cm; Wt 100.2 kg
[2022-03-25 12:35] VITALS: BP 134/96
--- NOTE | 2022-03-25 12:50 | ED Integumentary General ---
General Stated Complaint: LEFT LEG LAC Source: patient Exam Limitations: no limitations History of Present Illness Date Seen by Provider: Mar 25, 2022 Time Seen by Provider: 12:51 Initial Comments To ER with a laceration to the lateral aspect of the left lower leg. She cut this on a picture frame while at home just prior to arrival. Tetanus is not up-to-date. Timing/Duration: just prior to arrival Severity: moderate Location: none Associated Symptoms: denies symptoms Allergies and Home Medications Allergies Coded Allergies: pregabalin (Verified Adverse Reaction, Intermediate, 12/07/16) Rhabdomyolysis meperidine (Verified Adverse Reaction, Mild, NAUSEA, 12/07/16) morphine (Verified Adverse Reaction, Mild, NAUSEA, 09/13/07) Uncoded Allergies: STEROID PILLS (Allergy, Unknown, 11/15/13) Patient Home Medication List Home Medication List Reviewed: Yes Alprazolam (Alprazolam) 1 Mg Tablet, (Reported) Entered as Reported by: JUS MARTINES on 12/07/16825 Amitriptyline HCl (Amitriptyline HCl) 150 Mg Tablet, (Reported) Entered as Reported by: BIMAL REY on 12/28/18638 Aripiprazole (Abilify) 20 Mg Tablet, 20 MG PO DAILY, (Reported) Entered as Reported by: MARLEY QUINONES on 01/15/211818 Estradiol (Estradiol Tablet) 2 Mg Tablet, (Reported) Entered as Reported by: JUS MARTINES on 12/07/16 08 Famotidine (Pepcid) 20 Mg Tablet, 20 MG PO BID, (Reported) Entered as Reported by: MARLEY QUINONES on 01/15/211818 Gabapentin (Gabapentin) 100 Mg Capsule, (Reported) Entered as Reported by: BIMAL REY on 12/28/18638 Lovastatin (Lovastatin) 20 Mg Tablet, (Reported) Entered as Reported by: BIMAL REY on 12/28/18638 Methocarbamol (Robaxin-750) 750 Mg Tablet, 750 MG PO Q4H PRN for PAIN-MODERATE (5-7) Prescribed by: RAFA ALVARENGA on 05/18/20 192 Ondansetron (Ondansetron Odt) 4 Mg Tab.rapdis, 4 MG PO Q6H PRN for NAUSEA/VOMITING Prescribed by: NANCY FLYNN on 08/08/19 1409 Ondansetron (Ondansetron Odt) 4 Mg Tab.rapdis, 4 MG PO Q6H PRN for NAUSEA/VOMITING Prescribed by: NANCY FLYNN on 10/10/21 0717 Paroxetine HCl (Paroxetine HCl) 20 Mg Tablet, (Reported) Entered as Reported by: BIMAL REY on 12/28/18 0639 Promethazine HCl (Promethazine Tablet) 25 Mg Tablet, 25 MG PO Q6H PRN for NAUSEA/VOMITING Prescribed by: NANCY FLYNN on 10/02/20 1352 Review of Systems Review of Systems Constitutional: see HPI EENTM: see HPI Respiratory: no symptoms reported Cardiovascular: no symptoms reported Genitourinary: no symptoms reported Musculoskeletal: no symptoms reported Skin: see HPI Psychiatric/Neurological: No Symptoms Reported Endocrine: No Symptoms Reported Past Amwzbou-Rbbhha-Bhpgmm Hx Immunizations Up To Date Tetanus Booster (TDap): Unknown First/Initial COVID19 Vaccinat: 10/29 Seasonal Allergies Seasonal Allergies: Yes Past Medical History Surgery/Hospitalization HX: EGD 01/23/[address] 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 Sexually Transmitted Disease: No Genitourinary: No Gastrointestinal: Yes (CHRONIC NAUSEA AND ABDOMINAL PAIN ) Gastroesophageal Reflux, Diverticulosis Musculoskeletal: Yes Fibromyalgia, Chronic Back Pain Endocrine: Yes Diabetes, Non-Insulin dep HEENT: No Cancer: No Psychosocial: Yes Anxiety, Depression Integumentary: No Blood Disorders: No Family Medical History Cancer Cataract Family history: Allergy Family history: Arthritis Family history: Asthma Family history: Breast disease Family history: Diabetes mellitus Family history: Hypertension Family history: Osteoporosis Family history: Thyroid disorder Headache Heart disease Hypercholesterolemia Psychotic disorder Seizure disorder No Family History of: Abdominal aortic aneurysm Preble's disease Alcoholism Aphasia Cancer of colon Chest pain Congenital heart disease Congestive heart failure Cystic fibrosis Dementia Dysphagia Family history: Alzheimer's disease Family history: Cardiovascular disease Family history: Coronary thrombosis Family history: Gastrointestinal disease Family history: Glaucoma Hearing loss Hereditary disease History of - anemia History of - disorder History of - respiratory disease History of drug abuse Human immunodeficiency virus (HIV) seropositivity Infertile Kidney disease Malignant neoplasm of lung Myocardial infarction Parkinson's disease Prostate cancer Stroke Tuberculosis Visual impairment Physical Exam Vital Signs Capillary Refill : General Appearance: WD/WN, no apparent distress HEENT: PERRL/EOMI, normal ENT inspection Neck: non-tender, full range of motion Respiratory: no respiratory distress, no accessory muscle use Extremities: normal range of motion, non-tender Neurologic/Psychiatric: alert, normal mood/affect, oriented x 3 Skin: normal color, warm/dry, other (10 cm laceration lateral aspect left leg depth to the subcutaneous tissue) Procedures/Interventions Wound Location: Lower Extremities Wound Length (cm): 10 Wound's Depth, Shape: linear, sub Q Wound Explored: clean Irrigated w/ Saline (ccs): 40 Anesthesia: 1% Lidocaine Volume Anesthetic (ccs): 5 Suture: Prolene Suture Size: 4-0 Number of Sutures: 1 Layer Closure?: 1 Number Deep Layer Sutures: 0 Progress Anesthetized with 5 mL 1% lidocaine without epinephrine. Scrubbed and irrigated with chlorhexidine/saline solution. Closed with 1 running suture size 4-0 Prolene. Departure Impression Primary Impression: Laceration of left leg Disposition: 01 HOME, SELF-CARE Condition: Stable Departure-Patient Inst. Decision time for Depature: 12:55 Referrals: JOSE HSORE MD (PCP/Family) Primary Care Physician Patient Instructions: Laceration Repair With Stitches (DC) Add. Discharge Instructions: You can shower starting tonight letting water run over this but do not soak this in water such as a hot tub bathtub or swimming pool. Have the stitches removed in 10 to 12 days at your convenience. Antibiotic as directed. Scripts Cephalexin (Cephalexin) 500 Mg Tablet 500 MG PO TID, #15 TAB Prov: RAFA ALVARENGA APRN 03/25/22 RAFA ALVARENGA APRN Mar 25, 2022 12:50
[2022-03-25] MEDS ORDERED: CEPH500T PO (12:56)
[2022-03-25] MEDS ORDERED: TETANUS,DIPTH,PERTUSS P/F (BOOSTRIX) 0.5 ML VIAL IM ONE (13:00)
== END 2022-03-25 13:06 | disposition home or self-care (01) ==
LOC: ER 12:28 → EDUNIT# 12:28 → ER 13:06
DX: S81.812A Laceration without foreign body, left lower leg, initial encounter (principal); Z28.311 Partially vaccinated for COVID-19; W26.8XXA Contact with other sharp object(s), not elsewhere classified, initial encounter; Y92.009 Unspecified place in unspecified non-institutional (private) residence as the place of occurrence of the external cause
CPT/HCPCS: 90715; 99284

== ENCOUNTER 2022-04-04 17:31 | Emergency (ER) | payer MEDICARE ==
[~2022-04-04] VITALS: Ht 180 cm; Wt 98.4 kg
[~2022-04-04 17:31] MED LIST changes: +CEPH500T PO
[2022-04-04 18:24] VITALS: BP 110/78
== END 2022-04-04 18:24 | disposition home or self-care (01) ==
LOC: EDUNIT# 17:31 → ER 17:33
DX: Z48.02 Encounter for removal of sutures (principal)

== ENCOUNTER 2022-05-23 08:00 | Outpatient (RCR) | payer MEDICARE ==
[2022-05-22 10:41] LABS: BASOPHILS # (AUTO) 0.1 10^3/uL (0.0-0.1); BASOPHILS % (AUTO) 1 % (0-10); EOSINOPHILS # (AUTO) 0.1 10^3/uL (0.0-0.3); EOSINOPHILS % (AUTO) 1 % (0-10); HEMATOCRIT 42 % (35-52); LYMPHOCYTES # (AUTO) 2.9 10^3/uL (1.0-4.0); LYMPHOCYTES % (AUTO) 31 % (12-44); MEAN CORPUSCULAR HEMOGLOBIN 28 pg (25-34); MEAN CORPUSCULAR HGB CONC 33 g/dL (32-36); MEAN CORPUSCULAR VOLUME 86 fL (80-99); MEAN PLATELET VOLUME 9.6 fL (9.0-12.2); MONOCYTES # (AUTO) 0.6 10^3/uL (0.0-1.0); MONOCYTES % (AUTO) 6 % (0-12); NEUTROPHILS # (AUTO) 5.6 10^3/uL (1.8-7.8); NEUTROPHILS % (AUTO) 60 % (42-75); PLATELET COUNT 300 10^3/uL (130-400); WHITE BLOOD COUNT 9.3 10^3/uL (4.3-11.0)
[2022-05-22 10:58] LABS: BILIRUBIN,TOTAL 0.4 MG/DL (0.1-1.0); CALCIUM 9.4 MG/DL (8.5-10.1); CREATININE SERUM 0.8 MG/DL (0.60-1.30); POTASSIUM 4.4 MMOL/L (3.6-5.0); TOTAL PROTEIN 7.9 GM/DL (6.4-8.2)
== END 2022-06-10 | disposition home or self-care (01) ==
LOC: LAB 08:00
PROVIDERS: ATTEND Internal Medicine
DX: R10.84 Generalized abdominal pain (principal); R19.7 Diarrhea, unspecified; Z20.822 Contact with and (suspected) exposure to COVID-19
CPT/HCPCS: 36415; 80053; 85025; 87449; 87636

== ENCOUNTER → 2022-08-14 | Outpatient (CLI) | payer MEDICARE ==
--- NOTE | 2022-08-14 11:56 | Diagnostic Imaging Report ---
PROCEDURE: US Hepatic (Liver). TECHNIQUE: Multiple real-time grayscale images were obtained over the right upper quadrant in various projections. INDICATION: Elevated alkaline phosphatase. Liver is normal in size at 14 cm. Portal vein is patent and shows normal direction of flow. No discrete liver mass is detected. Gallbladder surgically absent. No definite biliary duct dilatation is seen. Pancreas was obscured by bowel gas. Aorta is nonaneurysmal. IVC is patent. Right kidney is without evidence of calculi or hydronephrosis. There is no ascites. IMPRESSION: Status post cholecystectomy. No significant abnormality is detected. Dictated by: Dictated on workstation # [id number]
== END ==
LOC: RAD 07:15
PROVIDERS: ATTEND Nurse Practitioner Family
DX: R74.8 Abnormal levels of other serum enzymes (principal); Z90.49 Acquired absence of other specified parts of digestive tract
CPT/HCPCS: 76705

== ENCOUNTER 2022-09-29 11:29 | Emergency (ER) | payer MEDICARE, MEDICAID ==
[~2022-09-29] VITALS: Ht 180 cm; Wt 100.0 kg
[2022-09-29] MEDS ORDERED: NS IV 1000 ML 1,000 ML IV STA (11:54)
--- NOTE | 2022-09-29 11:59 | ED Cough/URI ---
General Chief Complaint: Cough/Cold/Flu Symptoms Stated Complaint: N/V/D - HEADACHE - BODY ACHES - FEVER Nursing Triage Note: PT AMB TO RM 9 PT CO OF BODY ACHES, POSS FEVER, FATIGUE, PT STATES HAS BEEN GOING ON FOR APPROX 1 WEEK AND WAS SEEN BY @[facility] AND WAS GIVEN A STEROID SHOT. RATES BODY ACHES 03/20 Source: patient Exam Limitations: no limitations (MARIANA GUNN) History of Present Illness Date Seen by Provider: Sep 29, 2022 Time Seen by Provider: 11:57 Initial Comments Patient is a 42-year-old female with a history of fibromyalgia, chronic fatigue syndrome, type 2 diabetes who presents the ED with flulike symptoms. Symptoms started 1 week ago. She reports body aches, fatigue, weakness. She states she feels nauseous without vomiting. Has had 3+ episodes of nonbloody stools daily. Denies any cough, chest pain or shortness of breath. She reports generalized abdominal discomfort comfort described as cramping. History of hysterectomy, cholecystectomy, appendectomy. She saw her primary care physician this week thought this was secondary to her fibromyalgia and received a steroid shot without much improvement. She reports objective fever. She reports ear discom fort without any sore throat, runny nose, wheezing. Generalized head pain. Has been taking anti-inflammatories with some improvement. Patient states her lips feel dry. She states she feels dehydrated. Decreased urine output with mucous in her urine. She is not concern for STD and denies vaginal discharge (MARIANA GUNN) Allergies and Home Medications Allergies Coded Allergies: pregabalin (Verified Adverse Reaction, Intermediate, 12/07/16) Rhabdomyolysis meperidine (Verified Adverse Reaction, Mild, NAUSEA, 12/07/16) morphine (Verified Adverse Reaction, Mild, NAUSEA, 09/13/07) Uncoded Allergies: STEROID PILLS (Allergy, Unknown, 11/15/13) Patient Home Medication List Home Medication List Reviewed: Yes (MARIANA GUNN) Alprazolam (Alprazolam) 1 Mg Tablet, (Reported) Entered as Reported by: JUS MARTINES on 12/07/16 0826 Amitriptyline HCl (Amitriptyline HCl) 150 Mg Tablet, (Reported) Entered as Reported by: BIMAL REY on 12/28/18 0639 Aripiprazole (Abilify) 20 Mg Tablet, 20 MG PO DAILY, (Reported) Entered as Reported by: MARLEY QUINONES on 01/15/219 Cephalexin (Cephalexin) 500 Mg Tablet, 500 MG PO TID Prescribed by: RAFA ALVARENGA on 03/25/22 1256 Cephalexin (Cephalexin) 500 Mg Tablet, 500 MG PO BID Prescribed by: ROSEMARIE MCKEON on 09/29/22 1343 Estradiol (Estradiol Tablet) 2 Mg Tablet, (Reported) Entered as Reported by: JUS MARTINES on 12/07/16 0826 Famotidine (Pepcid) 20 Mg Tablet, 20 MG PO BID, (Reported) Entered as Reported by: MARLEY QUINONES on 01/15/211818 Gabapentin (Gabapentin) 100 Mg Capsule, (Reported) Entered as Reported by: BIMAL REY on 12/28/18 0639 Lovastatin (Lovastatin) 20 Mg Tablet, (Reported) Entered as Reported by: BIMAL REY on 12/28/18 0639 Methocarbamol (Robaxin-750) 750 Mg Tablet, 750 MG PO Q4H PRN for PAIN-MODERATE (5-7) Prescribed by: RAFA ALVARENGA on 05/18/20 1922 Ondansetron (Ondansetron Odt) 4 Mg Tab.rapdis, 4 MG PO Q6H PRN for NAUSEA/VOMITING Prescribed by: NANCY FLYNN on 08/08/19 1409 Ondansetron (Ondansetron Odt) 4 Mg Tab.rapdis, 4 MG PO Q6H PRN for NAUSEA/VOMITING Prescribed by: NANCY FLYNN on 10/10/21 0717 Paroxetine HCl (Paroxetine HCl) 20 Mg Tablet, (Reported) Entered as Reported by: BIMAL REY on 12/28/18 0639 Promethazine HCl (Promethazine Tablet) 25 Mg Tablet, 25 MG PO Q6H PRN for NAUSEA/VOMITING Prescribed by: NANCY FLYNN on 10/02/20 1352 Promethazine HCl (Promethazine Tablet) 25 Mg Tablet, 25 MG PO Q6H PRN for NAUSEA/VOMITING Prescribed by: ROSEMARIE MCKEON on 09/29/22 1343 Discontinued Medications Cephalexin (Cephalexin) 500 Mg Tablet, 500 MG PO BID Prescribed by: ROSEMARIE MCKEON on 09/29/22 1332 Promethazine HCl (Promethazine Tablet) 25 Mg Tablet, 25 MG PO Q6H PRN for NAUSEA/VOMITING Prescribed by: ROSEMARIE MCKEON on 09/29/22 1332 Review of Systems Review of Systems Constitutional: chills; No diaphoresis; malaise, weakness EENTM: No ear pain, No blurred vision, No double vision Respiratory: No short of breath Cardiovascular: No chest pain Gastrointestinal: abdominal pain, diarrhea, nausea; No vomiting Genitourinary: No decreased output, No discharge Musculoskeletal: No back pain, No joint pain; muscle pain Skin: No change in color, No change in hair/nails (MARIANA GUNN) All Other Systems Reviewed Negative Unless Noted: Yes (MARIANA GUNN) Past Otdjsnv-Rhtwda-Iumuxv Hx Patient Social History Tobacco Use?: Yes Tobacco type used: Cigarettes Smoking Status: Current Everyday Smoker Substance use?: No Alcohol Use?: No Pt feels they are or have been: No (MARIANA GUNN) Immunizations Up To Date Tetanus Booster (TDap): Unknown Influenza Vaccine Up-to-Date: Yes; Up-to-Date First/Initial COVID19 Vaccinat: 10/29 Second COVID19 Vaccination Brad: 10/29 Third COVID19 Vaccination Date: 10/29 (MARIANA GUNN) Seasonal Allergies Seasonal Allergies: Yes (MARIANA GUNN) Past Medical History Surgery/Hospitalization HX: EGD 01/23/[address] 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 Sexually Transmitted Disease: No Genitourinary: No Gastrointestinal: Yes (CHRONIC NAUSEA AND ABDOMINAL PAIN ) Gastroesophageal Reflux, Diverticulosis Musculoskeletal: Yes Fibromyalgia, Chronic Back Pain Endocrine: Yes Diabetes, Non-Insulin dep HEENT: No Cancer: No Psychosocial: Yes Anxiety, Depression Integumentary: No Blood Disorders: No (MARIANA GUNN) Family Medical History Cancer Cataract Family history: Allergy Family history: Arthritis Family history: Asthma Family history: Breast disease Family history: Diabetes mellitus Family history: Hypertension Family history: Osteoporosis Family history: Thyroid disorder Headache Heart disease Hypercholesterolemia Psychotic disorder Seizure disorder No Family History of: Abdominal aortic aneurysm Lenin's disease Alcoholism Aphasia Cancer of colon Chest pain Congenital heart disease Congestive heart failure Cystic fibrosis Dementia Dysphagia Family history: Alzheimer's disease Family history: Cardiovascular disease Family history: Coronary thrombosis Family history: Gastrointestinal disease Family history: Glaucoma Hearing loss Hereditary disease History of - anemia History of - disorder History of - respiratory disease History of drug abuse Human immunodeficiency virus (HIV) seropositivity Infertile Kidney disease Malignant neoplasm of lung Myocardial infarction Parkinson's disease Prostate cancer Stroke Tuberculosis Visual impairment Physical Exam Vital Signs - First Documented 09/29/22 11:40 Temp 36.9 Pulse 90 Resp 18 B/P (MAP) 126/79 (95) Pulse Ox 96 (JENNA RAGLAND MD) Capillary Refill : Less Than 3 Seconds (MARIANA GUNN) Height: 5'11.00" Weight: 220lbs. 0oz. [id number]; 30.00 BMI Method:Stated General Appearance: WD/WN, no apparent distress Eyes: Bilateral Eye Normal Inspection, Bilateral Eye PERRL, Bilateral Eye EOMI HEENT: PERRL/EOMI, normal ENT inspection, TMs normal, other (Dry mucous membrane) Neck: non-tender, supple, normal inspection Respiratory: chest non-tender, lungs clear, normal breath sounds, no respiratory distress, no accessory muscle use Cardiovascular: regular rate, rhythm, no edema, no gallop, no JVD Gastrointestinal: normal bowel sounds, soft, no organomegaly, other (Generalized abdominal tenderness) Extremities: normal range of motion, non-tender, normal inspection, no pedal edema Neurologic/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: 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, no motor/sensory deficits, alert, normal mood/affect, oriented x 3 Skin: normal color, warm/dry (MARIANA GUNN) Procedures/Interventions Suture Size: 4-0 (MARIANA GUNN) Progress/Results/Core Measures Suspected Sepsis SIRS Temperature: Pulse: 90 Respiratory Rate: 18 Laboratory Tests 09/29/22 12:07: White Blood Count 11.9H Blood Pressure 126 /79 Mean: 95 Laboratory Tests 09/29/22 12:07: Creatinine 0.88, Platelet Count 309, Total Bilirubin 0.4 (MARIANA GUNN) Results/Orders Lab Results Laboratory Tests Test 09/29/22 11:47 09/29/22 12:07 09/29/22 12:53 Range/Units Influenza Type A (RT-PCR) Not Detected Not Detecte Influenza Type B (RT-PCR) Not Detected Not Detecte SARS-CoV-2 RNA (RT-PCR) Not Detected Not Detecte White Blood Count 11.9 H 4.3-11.0 10^3/uL Red Blood Count 5.32 H 3.80-5.11 10^6/uL Hemoglobin 15.2 11.5-16.0 g/dL Hematocrit 45 35-52 % Mean Corpuscular Volume 85 80-99 fL Mean Corpuscular Hemoglobin 29 25-34 pg Mean Corpuscular Hemoglobin Concent 34 32-36 g/dL Red Cell Distribution Width 17.2 H 10.0-14.5 % Platelet Count 309 130-400 10^3/uL Mean Platelet Volume 9.0 9.0-12.2 fL Immature Granulocyte % (Auto) 0 % Neutrophils (%) (Auto) 63 42-75 % Lymphocytes (%) (Auto) 30 12-44 % Monocytes (%) (Auto) 6 0-12 % Eosinophils (%) (Auto) 1 0-10 % Basophils (%) (Auto) 1 0-10 % Neutrophils # (Auto) 7.5 1.8-7.8 10^3/uL Lymphocytes # (Auto) 3.5 1.0-4.0 10^3/uL Monocytes # (Auto) 0.7 0.0-1.0 10^3/uL Eosinophils # (Auto) 0.1 0.0-0.3 10^3/uL Basophils # (Auto) 0.1 0.0-0.1 10^3/uL Immature Granulocyte # (Auto) 0.0 0.0-0.1 10^3/uL Sodium Level 140 135-145 MMOL/L Potassium Level 3.8 3.6-5.0 MMOL/L Chloride Level 101 98-107 MMOL/L Carbon Dioxide Level 27 21-32 MMOL/L Anion Gap 12 5-14 MMOL/L Blood Urea Nitrogen 15 7-18 MG/DL Creatinine 0.88 0.60-1.30 MG/DL Estimat Glomerular Filtration Rate 84 BUN/Creatinine Ratio 17 Glucose Level 82 70-105 MG/DL Calcium Level 9.4 8.5-10.1 MG/DL Corrected Calcium 9.3 8.5-10.1 MG/DL Total Bilirubin 0.4 0.1-1.0 MG/DL Aspartate Amino Transf (AST/SGOT) 27 5-34 U/L Alanine Aminotransferase (ALT/SGPT) 59 H 0-55 U/L Alkaline Phosphatase 142 H 40-136 U/L Total Protein 8.1 6.4-8.2 GM/DL Albumin 4.1 3.2-4.5 GM/DL Urine Color YELLOW Urine Clarity CLEAR Urine pH 7.0 5-9 Urine Specific [place] 1.020 1.016-1.022 Urine Protein NEGATIVE NEGATIVE Urine Glucose (UA) NEGATIVE NEGATIVE Urine Ketones NEGATIVE NEGATIVE Urine Nitrite POSITIVE H NEGATIVE Urine Bilirubin NEGATIVE NEGATIVE Urine Urobilinogen 0.2 < = 1.0 MG/DL Urine Leukocyte Esterase NEGATIVE NEGATIVE Urine RBC (Auto) NEGATIVE NEGATIVE Urine RBC RARE /HPF Urine WBC RARE /HPF Urine Squamous Epithelial Cells 2-5 /HPF Urine Crystals NONE /LPF Urine Bacteria LARGE H /HPF Urine Casts NONE /LPF Urine Mucus NEGATIVE /LPF Urine Culture Indicated YES (JENNA RAGLAND MD) Medications Given in ED Current Medications Medications Dose Ordered Sig/Cali Route Start Time Stop Time Status Last Admin Dose Admin Promethazine HCl 25 mg ONCE ONCE IVP 09/29/22 13:00 09/29/22 13:01 DC 09/29/22 12:56 25 MG (JENNA RAGLAND MD) Vital Signs/I&O 09/29/22 09/29/22 11:40 13:42 Temp 36.9 Pulse 90 88 Resp 18 18 B/P (MAP) 126/79 (95) 117/86 Pulse Ox 96 96 (JENNA RAGLAND MD) Vital Signs/I&O Capillary Refill : Less Than 3 Seconds (MARIANA GUNN) Blood Pressure Mean: 95 Departure Communication (PCP) Patient reports decreased urine output but noted mucus in her urine today concerning for possible UTI. Urinalysis positive for nitrites and bacteria. Will treat for potential UTI with Keflex. Patient white blood count 11.9. Lab work with is otherwise unremarkable besides slightly elevated alk phos. History of fibromyalgia and chronic fatigue syndrome. COVID influenza negative. Lung sounds clear bilateral. No chest pain. She was given a liter of fluid able to urinate here. Tolerating p.o. fluids after Phenergan. Patient neuro exam unremarkable. Headache improved. Potential viral etiology or UTI. Will discharge with Keflex for the UTI. Follow-up with your primary care physician in the next 3 to 4 days for reevaluation. If any worsening symptoms return back to ED. (MARIANA GUNN) Impression Primary Impression: UTI (urinary tract infection) Additional Impression: Fatigue Disposition: 01 HOME, SELF-CARE Condition: Stable Departure-Patient Inst. Decision time for Depature: 13:31 (MARIANA GUNN) Referrals: JOSE SHORE MD (PCP/Family) Primary Care Physician Patient Instructions: Urinary Tract Infection, Adult (DC) Add. Discharge Instructions: Follow-up with your primary care physician later this week for reevaluation. If any worsening symptoms return back to ED for further evaluation. Recommend oral hydration. All discharge instructions reviewed with patient and/or family. Voiced understanding. Scripts Promethazine HCl (Promethazine Tablet) 25 Mg Tablet 25 MG PO Q6H PRN for NAUSEA/VOMITING, #8 TAB Prov: MARIANA GUNN 09/29/22 Cephalexin (Cephalexin) 500 Mg Tablet 500 MG PO BID for 7 Days, #14 TAB Prov: MARIANA GUNN 09/29/22 Work/School Note: Work Release Form Date Seen in the Emergency Department: Sep 29, 2022 Return to Work: Oct 02, 2022 ATTENDING PHYSICIAN NOTE: I was physically present as attending physician in the emergency department during the care of this patient, but I was not directly involved in the decision making or delivery of care for this patient. (JENNA RAGLAND MD) MARIANA GUNN Sep 29, 2022 11:59 JENNA RAGLAND MD Sep 29, 2022 20:49
[2022-09-29 12:20] LABS: BASOPHILS # (AUTO) 0.1 10^3/uL (0.0-0.1); BASOPHILS % (AUTO) 1 % (0-10); EOSINOPHILS # (AUTO) 0.1 10^3/uL (0.0-0.3); EOSINOPHILS % (AUTO) 1 % (0-10); HEMATOCRIT 45 % (35-52); HEMOGLOBIN 15.2 g/dL (11.5-16.0); LYMPHOCYTES # (AUTO) 3.5 10^3/uL (1.0-4.0); LYMPHOCYTES % (AUTO) 30 % (12-44); MEAN CORPUSCULAR HEMOGLOBIN 29 pg (25-34); MEAN CORPUSCULAR HGB CONC 34 g/dL (32-36); MEAN CORPUSCULAR VOLUME 85 fL (80-99); MONOCYTES # (AUTO) 0.7 10^3/uL (0.0-1.0); MONOCYTES % (AUTO) 6 % (0-12); NEUTROPHILS # (AUTO) 7.5 10^3/uL (1.8-7.8); NEUTROPHILS % (AUTO) 63 % (42-75); PLATELET COUNT 309 10^3/uL (130-400); WHITE BLOOD COUNT 11.9 10^3/uL (4.3-11.0)
[2022-09-29 12:32] LABS: ALBUMIN 4.1 GM/DL (3.2-4.5); POTASSIUM 3.8 MMOL/L (3.6-5.0)
[2022-09-29 12:33] LABS: CALCIUM 9.4 MG/DL (8.5-10.1)
[2022-09-29 12:34] LABS: TOTAL PROTEIN 8.1 GM/DL (6.4-8.2)
[2022-09-29 12:36] LABS: BILIRUBIN,TOTAL 0.4 MG/DL (0.1-1.0)
[2022-09-29 12:38] LABS: CREATININE SERUM 0.88 MG/DL (0.60-1.30)
[2022-09-29 12:59] LABS: BILIRUBIN,URINE NEGATIVE (NEGATIVE); CLARITY,URINE CLEAR; COLOR,URINE YELLOW; GLUCOSE, URINE (UA) NEGATIVE (NEGATIVE); KETONES,URINE NEGATIVE (NEGATIVE); LEUKOCYTE ESTERASE ,URINE NEGATIVE (NEGATIVE); NITRITE,URINE POSITIVE (NEGATIVE); PROTEIN,URINE NEGATIVE (NEGATIVE)
[2022-09-29] MEDS ORDERED: PROMETHAZINE INJ 25 MG/ML (PHENERGAN) AMP IVP ONE (13:00)
[2022-09-29 13:19] LABS: BACTERIA,URINE LARGE /HPF; RBC,URINE RARE /HPF; WBC,URINE RARE /HPF
[2022-09-29] MEDS ORDERED: CEPH500T PO ×2 (13:32→13:43)
[2022-09-29] MEDS ORDERED: PROM25TA14 PO ×2 (13:32→13:43)
[2022-09-29 13:42] VITALS: BP 117/86
== END 2022-09-29 13:45 | disposition home or self-care (01) ==
LOC: EDUNIT# 11:29 → ER 11:30
DX: N39.0 Urinary tract infection, site not specified (principal); R74.8 Abnormal levels of other serum enzymes; F17.210 Nicotine dependence, cigarettes, uncomplicated; Z87.19 Personal history of other diseases of the digestive system; Z90.49 Acquired absence of other specified parts of digestive tract; Z20.822 Contact with and (suspected) exposure to COVID-19
CPT/HCPCS: 36415; 80053; 81000; 85025; 87077; 87088; 87636

== ENCOUNTER 2022-11-25 15:43 | Emergency (ER) | payer MEDICARE, MEDICAID ==
[~2022-11-25] VITALS: Ht 180 cm; Wt 103.4 kg
[2022-11-25 17:00] LABS: BASOPHILS # (AUTO) 0.1 10^3/uL (0.0-0.1); BASOPHILS % (AUTO) 1 % (0-10); EOSINOPHILS # (AUTO) 0.1 10^3/uL (0.0-0.3); EOSINOPHILS % (AUTO) 1 % (0-10); HEMATOCRIT 45 % (35-52); LYMPHOCYTES # (AUTO) 3.3 10^3/uL (1.0-4.0); LYMPHOCYTES % (AUTO) 31 % (12-44); MEAN CORPUSCULAR HEMOGLOBIN 29 pg (25-34); MEAN CORPUSCULAR HGB CONC 34 g/dL (32-36); MEAN CORPUSCULAR VOLUME 86 fL (80-99); MEAN PLATELET VOLUME 9.4 fL (9.0-12.2); MONOCYTES # (AUTO) 0.8 10^3/uL (0.0-1.0); MONOCYTES % (AUTO) 7 % (0-12); NEUTROPHILS # (AUTO) 6.5 10^3/uL (1.8-7.8); NEUTROPHILS % (AUTO) 60 % (42-75); PLATELET COUNT 318 10^3/uL (130-400); WHITE BLOOD COUNT 10.8 10^3/uL (4.3-11.0)
[2022-11-25] MEDS ORDERED: KETOROLAC 30 MG/ML VIAL IVP ONE (17:00)
[2022-11-25] MEDS ORDERED: ONDANSETRON 4 MG/2 ML (SDV) Z0FRAN IVP ONE (17:00)
--- NOTE | 2022-11-25 17:00 | ED Abdominal Pain ---
General Chief Complaint: Abdominal/GI Problems Stated Complaint: NAUSHA ABDOMINAL PAIN Nursing Triage Note: pt presents to ED with c/o diffuse abdominal pain and tenderness, n/v/d, and WALKER since yesterday. pt's friend recently tested positive for covid. Source of Information: Patient Exam Limitations: No Limitations History of Present Illness Date Seen by Provider: Nov 25, 2022 Time Seen by Provider: 16:58 Initial Comments Patient is a 42-year-old female who presents the ED for flulike symptoms. Symptoms started yesterday with body aches, chills subjective fever, vomiting. Patient states she vomited at least 6 episodes nonbilious without hematemesis. Start developing diarrhea today. She reports a wet cough without chest pain or shortness of breath. She reports diffuse abdominal cramping described as more of a squeezing sensation. History of hysterectomy, ovarian cyst removal, cholecystectomy. She states she has not been eating as much. She states she feels dehydrated. She is requesting nausea medication and fluids. She was around somebody that tested positive for COVID last week. Patient denies chest pain, shortness of breath, wheezing, visual changes, dysuria, hematuria,sinus pi an, ear pain. She does report head pain with a scratchy throat. Patient has been taken ibuprofen at home without much improvement. Allergies and Home Medications Allergies Coded Allergies: pregabalin (Verified Adverse Reaction, Intermediate, 12/07/16) Rhabdomyolysis meperidine (Verified Adverse Reaction, Mild, NAUSEA, 12/07/16) morphine (Verified Adverse Reaction, Mild, NAUSEA, 09/13/07) Uncoded Allergies: STEROID PILLS (Allergy, Unknown, 11/15/13) Patient Home Medication List Home Medication List Reviewed: Yes Alprazolam (Alprazolam) 1 Mg Tablet, (Reported) Entered as Reported by: JUS MARTINES on 12/07/16 0826 Amitriptyline HCl (Amitriptyline HCl) 150 Mg Tablet, (Reported) Entered as Reported by: BIMAL REY on 12/28/18 0639 Aripiprazole (Abilify) 20 Mg Tablet, 20 MG PO DAILY, (Reported) Entered as Reported by: MARLEY QUINONES on 01/15/21 1819 Cephalexin (Cephalexin) 500 Mg Tablet, 500 MG PO TID Prescribed by: RAFA ALVARENGA on 03/25/22 1256 Cephalexin (Cephalexin) 500 Mg Tablet, 500 MG PO BID Prescribed by: ROSEMARIE MCKEON on 09/29/22 1343 Estradiol (Estradiol Tablet) 2 Mg Tablet, (Reported) Entered as Reported by: JUS MARTINES on 12/07/16 0826 Famotidine (Pepcid) 20 Mg Tablet, 20 MG PO BID, (Reported) Entered as Reported by: MARLEY QUINONES on 01/15/21 1819 Gabapentin (Gabapentin) 100 Mg Capsule, (Reported) Entered as Reported by: BIMAL REY on 12/28/18 0639 Lovastatin (Lovastatin) 20 Mg Tablet, (Reported) Entered as Reported by: BIMAL REY on 12/28/18 0639 Methocarbamol (Robaxin-750) 750 Mg Tablet, 750 MG PO Q4H PRN for PAIN-MODERATE (5-7) Prescribed by: RAFA ALVARENGA on 05/18/20 1922 Ondansetron (Ondansetron Odt) 4 Mg Tab.rapdis, 4 MG PO Q6H PRN for NAUSEA/VOMITING Prescribed by: NANCY FLYNN on 08/08/19 1409 Ondansetron (Ondansetron Odt) 4 Mg Tab.rapdis, 4 MG PO Q6H PRN for NAUSEA/VOMITING Prescribed by: NANCY FLYNN on 10/10/21 0717 Paroxetine HCl (Paroxetine HCl) 20 Mg Tablet, (Reported) Entered as Reported by: BIMAL REY on 12/28/18 0639 Promethazine HCl (Promethazine Tablet) 25 Mg Tablet, 25 MG PO Q6H PRN for NAUSEA/VOMITING Prescribed by: NANCY FLYNN on 10/02/20 1352 Promethazine HCl (Promethazine Tablet) 25 Mg Tablet, 25 MG PO Q6H PRN for NAUSEA/VOMITING Prescribed by: ROSEMARIE MCKEON on 09/29/22 1343 Promethazine HCl (Promethazine Tablet) 25 Mg Tablet, 25 MG PO Q6H PRN for NAUSEA/VOMITING Prescribed by: ROSEMARIE MCKEON on 11/25/22 1831 Review of Systems Review of Systems Constitutional: chills; No diaphoresis; malaise, weakness EENTM: No Double Vision, No Eye Pain Respiratory: Cough; Denies Shortness of Air, Denies SOA at Rest Cardiovascular: Denies Chest Pain, Denies Irregular Heart Rate Gastrointestinal: Abdominal Pain; Denies Blood Streaked Stools; Diarrhea, N ausea, Vomiting Musculoskeletal: No back pain, No gout Skin: No change in color All Other Systems Reviewed Negative Unless Noted: Yes Past [id number]-[id number]-Xvsojg Hx Patient Social History Tobacco Use?: Yes Tobacco type used: Cigars Smoking Status: Current Everyday Smoker Substance use?: No Alcohol Use?: No Pt feels they are or have been: No Immunizations Up To Date Tetanus Booster (TDap): Unknown Influenza Vaccine Up-to-Date: Yes; Up-to-Date First/Initial COVID19 Vaccinat: 10/29 Second COVID19 Vaccination Brad: 10/29 Third COVID19 Vaccination Date: 10/29 Seasonal Allergies Seasonal Allergies: Yes Past Medical History Surgery/Hospitalization HX: EGD 01/23/[address] 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 Sexually Transmitted Disease: No Genitourinary: No Gastrointestinal: Yes (CHRONIC NAUSEA AND ABDOMINAL PAIN ) Gastroesophageal Reflux, Diverticulosis Musculoskeletal: Yes Fibromyalgia, Chronic Back Pain Endocrine: Yes Diabetes, Non-Insulin dep HEENT: No Cancer: No Psychosocial: Yes Anxiety, Depression Integumentary: No Blood Disorders: No Family Medical History Cancer Cataract Family history: Allergy Family history: Arthritis Family history: Asthma Family history: Breast disease Family history: Diabetes mellitus Family history: Hypertension Family history: Osteoporosis Family history: Thyroid disorder Headache Heart disease Hypercholesterolemia Psychotic disorder Seizure disorder No Family History of: Abdominal aortic aneurysm [place]'s disease Alcoholism Aphasia Cancer of colon Chest pain Congenital heart disease Congestive heart failure Cystic fibrosis Dementia Dysphagia Family history: Alzheimer's disease Family history: Cardiovascular disease Family history: Coronary thrombosis Family history: Gastrointestinal disease Family history: Glaucoma Hearing loss Hereditary disease History of - anemia History of - disorder History of - respiratory disease History of drug abuse Human immunodeficiency virus (HIV) seropositivity Infertile Kidney disease Malignant neoplasm of lung Myocardial infarction Parkinson's disease Prostate cancer Stroke Tuberculosis Visual impairment Physical Exam Vital Signs Vital Signs - First Documented 11/25/22 16:35 Temp 36.9 Pulse 86 Resp 18 B/P (MAP) 147/104 (118) Pulse Ox 98 O2 Delivery Room Air Capillary Refill : Height/Weight/BMI Height: 5'11.00" Weight: 220lbs. 0oz. [id number]; 31.00 BMI Method:Stated General Appearance: WD/WN, no apparent distress HEENT: PERRL/EOMI, normal ENT inspection, TMs normal, pharynx normal Neck: non-tender, full range of motion, supple, normal inspection Respiratory: chest non-tender, lungs clear, normal breath sounds, no respiratory distress, no accessory muscle use Cardiovascular: regular rate, rhythm, no edema, no gallop, no JVD Gastrointestinal: normal bowel sounds, soft, no organomegaly, no pulsatile mass, tenderness (Generalized abdominal tenderness. Normal bowel sounds. No rebound or guarding) Extremities: normal range of motion, non-tender, normal inspection Back: normal inspection, no CVA tenderness Neurologic/Psychiatric: silverer II-XII nml as tested, no motor/sensory deficits, alert, normal mood/affect, oriented x 3 Skin: normal color, warm/dry Procedures/Interventions Suture Size: 4-0 Progress/Results/Core Measures Results/Orders Lab Results Laboratory Tests Test 11/25/22 16:40 11/25/22 16:48 11/25/22 17:28 Range/Units Urine Color YELLOW Urine Clarity CLEAR Urine pH 8.5 5-9 Urine Specific [place] 1.015 L 1.016-1.022 Urine Protein NEGATIVE NEGATIVE Urine Glucose (UA) NEGATIVE NEGATIVE Urine Ketones NEGATIVE NEGATIVE Urine Nitrite NEGATIVE NEGATIVE Urine Bilirubin NEGATIVE NEGATIVE Urine Urobilinogen 1.0 < = 1.0 MG/DL Urine Leukocyte Esterase NEGATIVE NEGATIVE Urine RBC (Auto) NEGATIVE NEGATIVE Urine RBC NONE /HPF Urine WBC RARE /HPF Urine Squamous Epithelial Cells 5-10 /HPF Urine Crystals NONE /LPF Urine Bacteria TRACE /HPF Urine Casts NONE /LPF Urine Mucus NEGATIVE /LPF Urine Culture Indicated NO Urine Test NEGATIVE NEGATIVE White Blood Count 10.8 4.3-11.0 10^3/uL Red Blood Count 5.21 H 3.80-5.11 10^6/uL Hemoglobin 15.0 11.5-16.0 g/dL Hematocrit 45 35-52 % Mean Corpuscular Volume 86 80-99 fL Mean Corpuscular Hemoglobin 29 25-34 pg Mean Corpuscular Hemoglobin Concent 34 32-36 g/dL Red Cell Distribution Width 18.3 H 10.0-14.5 % Platelet Count 318 130-400 10^3/uL Mean Platelet Volume 9.4 9.0-12.2 fL Immature Granulocyte % (Auto) 0 % Neutrophils (%) (Auto) 60 42-75 % Lymphocytes (%) (Auto) 31 12-44 % Monocytes (%) (Auto) 7 0-12 % Eosinophils (%) (Auto) 1 0-10 % Basophils (%) (Auto) 1 0-10 % Neutrophils # (Auto) 6.5 1.8-7.8 10^3/uL Lymphocytes # (Auto) 3.3 1.0-4.0 10^3/uL Monocytes # (Auto) 0.8 0.0-1.0 10^3/uL Eosinophils # (Auto) 0.1 0.0-0.3 10^3/uL Basophils # (Auto) 0.1 0.0-0.1 10^3/uL Immature Granulocyte # (Auto) 0.0 0.0-0.1 10^3/uL Sodium Level 140 135-145 MMOL/L Potassium Level 3.6 3.6-5.0 MMOL/L Chloride Level 104 98-107 MMOL/L Carbon Dioxide Level 26 21-32 MMOL/L Anion Gap 10 5-14 MMOL/L Blood Urea Nitrogen 13 7-18 MG/DL Creatinine 0.74 0.60-1.30 MG/DL Estimat Glomerular Filtration Rate 103 BUN/Creatinine Ratio 18 Glucose Level 79 70-105 MG/DL Calcium Level 9.9 8.5-10.1 MG/DL Corrected Calcium 9.8 8.5-10.1 MG/DL Total Bilirubin 0.4 0.1-1.0 MG/DL Aspartate Amino Transf (AST/SGOT) 26 5-34 U/L Alanine Aminotransferase (ALT/SGPT) 46 0-55 U/L Alkaline Phosphatase 140 H 40-136 U/L Total Protein 7.9 6.4-8.2 GM/DL Albumin 4.1 3.2-4.5 GM/DL Lipase 14 8-78 U/L Influenza Type A (RT-PCR) Not Detected Not Detecte Influenza Type B (RT-PCR) Not Detected Not Detecte SARS-CoV-2 RNA (RT-PCR) Not Detected Not Detecte My Orders Orders - MARIANA GUNN Covid 19 Inhouse Test (11/25/22 16:46) Influenza A And B By Pcr (11/25/22 16:46) Cbc With Automated Diff (11/25/22 16:52) Comprehensive Metabolic Panel (11/25/22 16:52) Lipase (11/25/22 16:52) Ua Culture If Indicated (11/25/22 16:52) Hcg,Qualitative Urine (11/25/22 16:52) Ketorolac Injection (Toradol Injection) (11/25/22 17:00) Ondansetron Injection (Zofran Injectio (11/25/22 17:00) Ns Iv 1000 Ml (Sodium Chloride 0.9%) (11/25/22 17:02) Promethazine Injection (Phenergan Injec (11/25/22 18:00) Medications Given in ED Current Medications Medications Dose Ordered Sig/Cali Route Start Time Stop Time Status Last Admin Dose Admin Ketorolac Tromethamine 30 mg ONCE ONCE IVP 11/25/22 17:00 11/25/22 17:01 DC 11/25/22 17:08 30 MG Ondansetron HCl 4 mg ONCE ONCE IVP 11/25/22 17:00 11/25/22 17:01 DC 11/25/22 17:08 4 MG Promethazine HCl 25 mg ONCE ONCE IVP 11/25/22 18:00 11/25/22 18:01 DC 11/25/22 18:10 25 MG Vital Signs/I&O 11/25/22 16:35 Temp 36.9 Pulse 86 Resp 18 B/P (MAP) 147/104 (118) Pulse Ox 98 O2 Delivery Room Air Blood Pressure Mean: 118 Departure Communication (PCP) Patient presents ED with vomiting and diarrhea. Symptoms started yesterday. She states she feels dehydrated. Generalized abdominal cramping squeezing sensation. Patient does not appear toxic or septic. Afebrile with stable vital signs. She does have generalized abdominal tenderness worse umbilical tenderness. No vomiting here. No active diarrhea here. Due to her current complaint CBC, CMP, lipase, urinalysis, COVID influenza swabs were performed. She states she was around somebody who tested positive for COVID last week. COVID influenza was negative. CBC, CMP grossly unremarkable. Urine was negative for infection. She was given a dose of Zofran but still continued feeling nauseous. She states Phenergan helps more which was given 25 mg here. Patient was tolerating p.o. fluids. I suspect this is likely more viral. Improvement of her abdominal pain after Toradol. No evidence of surgical abdomen. Continue with oral hydration, Pedialyte, nausea medication. Provided school note for few days. If any worsening pain, fever, vomiting or diarrhea to return back to ED. Discussed with patient this may take up for a few days to improve. Impression Primary Impression: Vomiting and diarrhea Disposition: HOME, SELF-CARE Condition: Stable Departure-Patient Inst. Decision time for Depature: 18:30 Referrals: JOSE SHORE MD (PCP/Family) Primary Care Physician Patient Instructions: Nausea and Vomiting, Adult (DC) Scripts Promethazine HCl (Promethazine Tablet) 25 Mg Tablet 25 MG PO Q6H PRN for NAUSEA/VOMITING, #8 TAB Prov: MARIANA GUNN 11/25/22 Work/School Note: School/Childcare Release Date Seen in the Emergency Department: Nov 25, 2022 Time Dismissed from Emergency Department: 18:31 Return to School: Nov 28, 2022 MARIANA GUNN Nov 25, 2022 17:00
[2022-11-25] MEDS ORDERED: NS IV 1000 ML 1,000 ML IV STA (17:02)
[2022-11-25 17:17] LABS: ALBUMIN 4.1 GM/DL (3.2-4.5)
[2022-11-25 17:18] LABS: POTASSIUM 3.6 MMOL/L (3.6-5.0)
[2022-11-25 17:19] LABS: CALCIUM 9.9 MG/DL (8.5-10.1)
[2022-11-25 17:20] LABS: TOTAL PROTEIN 7.9 GM/DL (6.4-8.2)
[2022-11-25 17:22] LABS: BILIRUBIN,TOTAL 0.4 MG/DL (0.1-1.0)
[2022-11-25 17:24] LABS: CREATININE SERUM 0.74 MG/DL (0.60-1.30)
[2022-11-25 17:47] LABS: BILIRUBIN,URINE NEGATIVE (NEGATIVE); CLARITY,URINE CLEAR; COLOR,URINE YELLOW; GLUCOSE, URINE (UA) NEGATIVE (NEGATIVE); KETONES,URINE NEGATIVE (NEGATIVE); LEUKOCYTE ESTERASE ,URINE NEGATIVE (NEGATIVE); NITRITE,URINE NEGATIVE (NEGATIVE); PH,URINE 8.5 (5-9); PROTEIN,URINE NEGATIVE (NEGATIVE)
[2022-11-25 17:54] LABS: BACTERIA,URINE TRACE /HPF; WBC,URINE RARE /HPF
[2022-11-25] MEDS ORDERED: PROMETHAZINE INJ 25 MG/ML (PHENERGAN) AMP IVP ONE (18:00)
[2022-11-25] MEDS ORDERED: PROM25TA14 PO (18:31)
[2022-11-25 18:44] VITALS: BP 132/89
== END 2022-11-25 18:49 | disposition home or self-care (01) ==
LOC: EDUNIT# 15:43 → ER 15:46
DX: R19.7 Diarrhea, unspecified (principal); R11.2 Nausea with vomiting, unspecified; R10.84 Generalized abdominal pain; R10.33 Periumbilical pain; F17.210 Nicotine dependence, cigarettes, uncomplicated; Z87.19 Personal history of other diseases of the digestive system; Z90.49 Acquired absence of other specified parts of digestive tract; Z20.822 Contact with and (suspected) exposure to COVID-19
CPT/HCPCS: 36415; 80053; 81000; 83690; 84703; 85025; 87636

== ENCOUNTER 2022-12-22 17:35 | Emergency (ER) | payer MEDICARE, MEDICAID ==
[~2022-12-22] VITALS: Ht 180 cm; Wt 103.4 kg
[2022-12-22] MEDS ORDERED: PROMETHAZINE INJ 25 MG/ML (PHENERGAN) AMP IVP STA (17:54)
[2022-12-22] MEDS ORDERED: diphenhydrAMINE 50 MG/ML INJ (BENADRYL) IV STA (17:54)
[2022-12-22] MEDS ORDERED: NS IV 1000 ML 1,000 ML IV STA (17:54)
[2022-12-22] MEDS ORDERED: KETOROLAC 30 MG/ML VIAL IVP STA (17:54)
--- NOTE | 2022-12-22 17:57 | ED Chest Pain ---
General Chief Complaint: Chest Pain Stated Complaint: CHEST PAIN/NAUSEA/HEADACHE Nursing Triage Note: PT AMB TO [facility] 6 PT CO OF MIGRAINE 9/10 FOR 3 DAYS. CHEST PAIN 7/10 REPRODUCABLE FOR 2 DAYS. PT HAS FIBROMYALGIA AND HAS BODY ACHES. PT HAS VERY FLAT AFFECT AT THIS X.PT CO OF NAUSEA, AND IS NOT DRINKING VERY MUCH TODAY Source: patient Exam Limitations: no limitations (ONEIL BROOKS MD) History of Present Illness Date Seen by Provider: December 22, 2022 Time Seen by Provider: 17:45 Initial Comments Here with report of 3 days of headache to the front and top of her head that has not responded to sumatriptan injection nor Tylenol or ibuprofen. She has been just trying to wait and see if it got better. She also has central upper chest pain that is reproducible and that has been going on for the last 2 days. Complains of not being able to drink much because it hurts her head when she swallows and not eating well for the same reason. She has been able to take her home medicines otherwise. She does have history of fibromyalgia and migraines. Timing/Duration: 2-3 days Severity/Quality: mild, aching Location: central Radiation: no radiation Modifying Factors: worse with palpation; improves with rest Associated Symptoms: No back pain; fatigue; No fever/chills; headache; No shortness of breath, No weakness (ONEIL BROOKS MD) Allergies and Home Medications Allergies Coded Allergies: pregabalin (Verified Adverse Reaction, Intermediate, 12/07/16) Rhabdomyolysis meperidine (Verified Adverse Reaction, Mild, NAUSEA, 12/07/16) morphine (Verified Adverse Reaction, Mild, NAUSEA, 09/13/07) Uncoded Allergies: STEROID PILLS (Allergy, Unknown, 11/15/13) Patient Home Medication List Home Medication List Reviewed: Yes (ONEIL BROOKS MD) Alprazolam (Alprazolam) 1 Mg Tablet, (Reported) Entered as Reported by: JUS MARTINES on 12/07/16 0826 Amitriptyline HCl (Amitriptyline HCl) 150 Mg Tablet, (Reported) Entered as Reported by: BIMAL REY on 12/28/18 0639 Aripiprazole (Abilify) 20 Mg Tablet, 20 MG PO DAILY, (Reported) Entered as Reported by: MARLEY QUINONES on 01/15/21 1819 Cephalexin (Cephalexin) 500 Mg Tablet, 500 MG PO TID Prescribed by: RAFA ALVARENGA on 03/25/22 1256 Cephalexin (Cephalexin) 500 Mg Tablet, 500 MG PO BID Prescribed by: ROSEMARIE MCKEON on 09/29/22 1343 Estradiol (Estradiol Tablet) 2 Mg Tablet, (Reported) Entered as Reported by: JUS MARTINES on 12/07/16 0826 Famotidine (Pepcid) 20 Mg Tablet, 20 MG PO BID, (Reported) Entered as Reported by: MARLEY QUINONES on 01/15/21 181 Gabapentin (Gabapentin) 100 Mg Capsule, (Reported) Entered as Reported by: BIMAL REY on 12/28/18 0639 Lovastatin (Lovastatin) 20 Mg Tablet, (Reported) Entered as Reported by: BIMAL REY on 12/28/18 0639 Methocarbamol (Robaxin-750) 750 Mg Tablet, 750 MG PO Q4H PRN for PAIN-MODERATE (5-7) Prescribed by: RAFA ALVARENGA on 05/18/20 1922 Ondansetron (Ondansetron Odt) 4 Mg Tab.rapdis, 4 MG PO Q6H PRN for NAUSEA/VOMITING Prescribed by: NANCY FLYNN on 08/08/19 1409 Ondansetron (Ondansetron Odt) 4 Mg Tab.rapdis, 4 MG PO Q6H PRN for NAUSEA/ VOMITING Prescribed by: NANCY FLYNN on 10/10/21 0717 Paroxetine HCl (Paroxetine HCl) 20 Mg Tablet, (Reported) Entered as Reported by: BIMAL REY on 12/28/18 0639 Promethazine HCl (Promethazine Tablet) 25 Mg Tablet, 25 MG PO Q6H PRN for NAUSEA/VOMITING Prescribed by: NANCY FLYNN on 10/02/20 1352 Promethazine HCl (Promethazine Tablet) 25 Mg Tablet, 25 MG PO Q6H PRN for NAUSEA/VOMITING Prescribed by: ROSEMARIE MCKEON on 09/29/22 1343 Promethazine HCl (Promethazine Tablet) 25 Mg Tablet, 25 MG PO Q6H PRN for NAUSEA/VOMITING Prescribed by: ROSEMARIE MCKEON on 11/25/22 1831 Promethazine HCl (Promethazine Tablet) 25 Mg Tablet, 25 MG PO Q8H PRN for NAUSEA/VOMITING Prescribed by: JENNA MCDANIELS on 12/22/222106 Review of Systems Review of Systems Constitutional: see HPI; No chills, No fever EENTM: No Nose Congestion, No Throat Pain Respiratory: Denies Cough, Denies Shortness of Air Cardiovascular: Chest Pain; Denies Edema Gastrointestinal: Denies Nausea, Denies Vomiting Genitourinary: No Symptoms Reported Musculoskeletal: muscle pain Psychiatric/Neurological: Denies Anxiety; Headache (ONEIL BROOKS MD) Past Fxiopqf-Dkwqyh-Declna Hx Patient Social History Tobacco Use?: Yes Tobacco type used: Cigars Smoking Status: Current Everyday Smoker Substance use?: No Alcohol Use?: No Pt feels they are or have been: No (ONEIL BROOKS MD) Immunizations Up To Date Tetanus Booster (TDap): Unknown Influenza Vaccine Up-to-Date: Yes; Up-to-Date First/Initial COVID19 Vaccinat: 10/29 Second COVID19 Vaccination Brad: 10/29 Third COVID19 Vaccination Date: 10/29 (ONEIL BROOKS MD) Seasonal Allergies Seasonal Allergies: Yes (ONEIL BROOKS MD) Past Medical History Surgery/Hospitalization HX: EGD 01/23/[address] 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 History: Hysterectomy Sexually Transmitted Disease: No Genitourinary: No Gastrointestinal: Yes (CHRONIC NAUSEA AND ABDOMINAL PAIN ) Gastroesophageal Reflux, Diverticulosis Musculoskeletal: Yes Fibromyalgia, Chronic Back Pain Endocrine: Yes Diabetes, Non-Insulin dep HEENT: No Cancer: No Psychosocial: Yes Anxiety, Depression Integumentary: No Blood Disorders: No (ONEIL BROOKS MD) Family Medical History Reviewed Nursing Family Hx (ONEIL BROOKS MD) Cancer Cataract Family history: Allergy Family history: Arthritis Family history: Asthma Family history: Breast disease Family history: Diabetes mellitus Family history: Hypertension Family history: Osteoporosis Family history: Thyroid disorder Headache Heart disease Hypercholesterolemia Psychotic disorder Seizure disorder No Family History of: Abdominal aortic aneurysm Lenin's disease Alcoholism Aphasia Cancer of colon Chest pain Congenital heart disease Congestive heart failure Cystic fibrosis Dementia Dysphagia Family history: Alzheimer's disease Family history: Cardiovascular disease Family history: Coronary thrombosis Family history: Gastrointestinal disease Family history: Glaucoma Hearing loss Hereditary disease History of - anemia History of - disorder History of - respiratory disease History of drug abuse Human immunodeficiency virus (HIV) seropositivity Infertile Kidney disease Malignant neoplasm of lung Myocardial infarction Parkinson's disease Prostate cancer Stroke Tuberculosis Visual impairment Physical Exam Vital Signs Vital Signs - First Documented 12/22/22 12/22/22 17:41 18:06 Temp 36.5 Pulse 92 Resp 11 B/P (MAP) 113/83 (93) Pulse Ox 97 O2 Delivery Room Air FiO2 94 (JENNA PAN MD) Vital Signs Capillary Refill : Less Than 3 Seconds (ONEIL BROOKS MD) Height, Weight, BMI Height: 5'11.00" Weight: 220lbs. 0oz. [id number]; 31.00 BMI Method:Stated General Appearance: No Apparent Distress, WD/WN HEENT: PERRL/EOMI, Pharynx Normal Neck: Non Tender, Supple Respiratory: Lungs Clear, Normal Breath Sounds Cardiovascular: Regular Rate, Rhythm, Other (Central chest pain that is reproducible on palpation) Gastrointestinal: Non Tender, Soft Extremity: Normal Range of Motion, Non Tender Neurologic/Psychiatric: Alert, Oriented x3 Skin: Normal Color, Warm/Dry (ONEIL BROOKS MD) Procedures/Interventions Suture Size: 4-0 (ONEIL BROOKS MD) Progress/Results/Core Measures Results/Orders Lab Results Laboratory Tests Test 12/22/22 17:44 12/22/22 18:01 Range/Units White Blood Count 12.2 H 4.3-11.0 10^3/uL Red Blood Count 5.43 H 3.80-5.11 10^6/uL Hemoglobin 15.8 11.5-16.0 g/dL Hematocrit 47 35-52 % Mean Corpuscular Volume 86 80-99 fL Mean Corpuscular Hemoglobin 29 25-34 pg Mean Corpuscular Hemoglobin Concent 34 32-36 g/dL Red Cell Distribution Width 17.1 H 10.0-14.5 % Platelet Count 298 130-400 10^3/uL Mean Platelet Volume 9.5 9.0-12.2 fL Immature Granulocyte % (Auto) 0 % Neutrophils (%) (Auto) 54 42-75 % Lymphocytes (%) (Auto) 36 12-44 % Monocytes (%) (Auto) 8 0-12 % Eosinophils (%) (Auto) 1 0-10 % Basophils (%) (Auto) 1 0-10 % Neutrophils # (Auto) 6.6 1.8-7.8 10^3/uL Lymphocytes # (Auto) 4.4 H 1.0-4.0 10^3/uL Monocytes # (Auto) 0.9 0.0-1.0 10^3/uL Eosinophils # (Auto) 0.2 0.0-0.3 10^3/uL Basophils # (Auto) 0.1 0.0-0.1 10^3/uL Immature Granulocyte # (Auto) 0.0 0.0-0.1 10^3/uL Prothrombin Time 12.5 12.2-14.7 SEC INR Comment 0.9 0.8-1.4 Activated Partial Thromboplast Time 34 24-35 SEC Sodium Level 142 135-145 MMOL/L Potassium Level 3.4 L 3.6-5.0 MMOL/L Chloride Level 101 98-107 MMOL/L Carbon Dioxide Level 28 21-32 MMOL/L Anion Gap 13 5-14 MMOL/L Blood Urea Nitrogen 16 7-18 MG/DL Creatinine 0.99 0.60-1.30 MG/DL Estimat Glomerular Filtration Rate 73 BUN/Creatinine Ratio 16 Glucose Level 86 70-105 MG/DL Calcium Level 10.0 8.5-10.1 MG/DL Corrected Calcium 9.8 8.5-10.1 MG/DL Magnesium Level 2.4 1.6-2.4 MG/DL Total Bilirubin 0.4 0.1-1.0 MG/DL Aspartate Amino Transf (AST/SGOT) 31 5-34 U/L Alanine Aminotransferase (ALT/SGPT) 51 0-55 U/L Alkaline Phosphatase 153 H 40-136 U/L Myoglobin 41.7 10.0-92.0 NG/ML Troponin I < 0.028 <0.028 NG/ML Total Protein 8.3 H 6.4-8.2 GM/DL Albumin 4.3 3.2-4.5 GM/DL SARS-CoV-2 RNA (RT-PCR) Not Detected Not Detecte (JENNA PAN MD) My Orders Orders - JENNA PAN MD Lactated Ringers (Lr 1000 Ml Iv Solution (12/22/22 19:00) Ondansetron Injection (Zofran Injectio (12/22/22 19:00) (JENNA PAN MD) Medications Given in ED Current Medications Medications Dose Ordered Sig/Cali Route Start Time Stop Time Status Last Admin Dose Admin Lactated Ringer's 1,000 ml @ 0 mls/hr Q0M ONCE IV 12/22/22 19:00 12/22/22 19:01 DC 12/22/22 19:19 0 MLS/HR Ondansetron HCl 4 mg ONCE ONCE IVP 12/22/22 19:00 12/22/22 19:01 DC 12/22/22 19:16 4 MG (JENNA PAN MD) Vital Signs/I&O 12/22/22 12/22/22 12/22/22 17:41 18:06 21:12 Temp 36.5 Pulse 92 79 Resp 11 B/P (MAP) 113/83 (93) 116/81 Pulse Ox 97 96 O2 Delivery Room Air Room Air FiO2 94 (JENNA PAN MD) Blood Pressure Mean: 93 Progress Progress Note : Progress Note Seen and evaluated. We will initiate chest pain protocol including EKG, chest x-ray, ASA 324 mg p.o., CBC, CMP, myoglobin, troponin and coags. Toradol 30 mg IV, Phenergan 25 mg IV and Benadryl 50 mg IV ordered for headache. Normal saline 1 L bolus. Monitor patient. Differential diagnosis includes acute exacerbation of migraine headache, cardiac event, chest wall pain, fibromyalgia, dehydration, electrolyte abnormality 1800: Care transferred to Dr. Pan pending labs, chest x-ray and EKG as well as reevaluation. (ONEIL BROOKS MD) Progress Note : Progress Note Care of this patient was assumed from Dr. Brooks at shift change. Labs were reviewed. CBC demonstrated a mild leukocytosis with a lymphocytic predominance suggesting viral illness. Patient was treated with Toradol and Benadryl. Blood pressures were low and Phenergan was therefore held. Blood pressure did improve with IV fluids. Patient reported decrease in headache and chest/abdominal pain but no complete resolution. She continued to have tenderness of the chest wall and upper abdomen on palpation during my reexamination. I offered her a GI cocktail which she declined. The remainder of labs were interpreted by me. No significant abnormalities were noted with the CMP or troponin. Chest x-ray and EKG were unremarkable. Patient was ultimately discharged in improved condition. See discharge instructions and prescriptions. Chest pain was atypical in nature with exam suggesting musculoskeletal and/or GI origin. Patient was advised to increase her omeprazole usage to twice daily. (JENNA PAN MD) Initial ECG Impression Date: December 22, 2022 Initial ECG Impression Time: 18:01 Initial ECG Rate: 91 Initial ECG Rhythm: Normal Sinus Initial ECG Intervals: Normal Comment Normal sinus rhythm with no ST elevation or depression. Subtle ST change, possibly subtle right bundle branch block. No other abnormal intervals or axis deviation. (JENNA PAN MD) Diagnostic Imaging Diagonstic Imaging: Xray Plain Films/CT/US/NM/MRI: chest Comments NAME: [facility] REC#: [id number] PT STATUS: REG ER : 1980 PHYSICIAN: ONEIL BROOKS MD ADMIT DATE: 12/22/22/ER Signed Date of Exam:12/22/22 CHEST 1 VIEW, AP/PA ONLY EXAMINATION: Chest 1 view. HISTORY: Chest pain. COMPARISON: 08/20/2021. FINDINGS: The lung volumes are normal. No focal consolidation is seen. No large pleural effusion or pneumothorax is seen. The cardiomediastinal silhouette is normal in size and contour. No acute osseous abnormality is seen. IMPRESSION: No acute pleuroparenchymal process. Dictated by: Dictated on workstation # [id number] Dict: 12/22/221836 Trans: 12/22/221845 [facility] [id number] Interpreted by: ROSIE RAE DO Electronically signed by: ROSIE RAE DO 12/22/221845 (JENNA PAN MD) Departure Impression Primary Impression: Atypical chest pain Additional Impressions: Nausea Upper abdominal pain Acute headache Qualified Codes: R51.9 - Headache, unspecified Disposition: 01 HOME, SELF-CARE Condition: Improved Departure-Patient Inst. Decision time for Depature: 21:03 (JENNA PAN MD) Referrals: JOSE SHORE MD (PCP/Family) Primary Care Physician Patient Instructions: Abdominal Pain, Adult ED, Chest Pain, Adult ED Add. Discharge Instructions: Start with a noncarbonated clear liquid diet and gradually advance your diet with small quantities of bland food as tolerated. Increase omeprazole to twice daily. You may take an additional tablet when you return home. Keep your appointment with your primary care provider in the morning. If you desire a steroid injection, please discuss this with your primary care provider. Use Phenergan (promethazine) as prescribed for nausea and vomiting. Avoid the following: Eating large meals, eating close to bedtime, caffeine, carbonation, chocolate, citrus fruits and juices, alcohol, tobacco, tomato products, spicy foods, fatty/greasy foods, NSAID medications such as ibuprofen or naproxen, and anything else you know irritates your stomach. You may add Tylenol (acetaminophen) up to 1000 mg every 6 hours as needed for additional pain relief. Return to the ER if you have worsening symptoms despite following these instructions. All discharge instructions reviewed with patient and/or family. Voiced understanding. Scripts Promethazine HCl (Promethazine Tablet) 25 Mg Tablet 25 MG PO Q8H PRN for NAUSEA/VOMITING, #10 TAB 0 Refills Prov: JENNA PAN MD 12/22/22 Copy Copies To 1: JOSE SHORE MD, TIMOTHY D MD December 22, 2022 17:57 JENNA PAN MD December 22, 2022 19:17
[2022-12-22] MEDS ORDERED: ASPIRIN 81 MG CHEW (CHILDREN'S ASA) PO ONE (18:00)
[2022-12-22 18:01] LABS: BASOPHILS # (AUTO) 0.1 10^3/uL (0.0-0.1); BASOPHILS % (AUTO) 1 % (0-10); EOSINOPHILS # (AUTO) 0.2 10^3/uL (0.0-0.3); EOSINOPHILS % (AUTO) 1 % (0-10); HEMATOCRIT 47 % (35-52); HEMOGLOBIN 15.8 g/dL (11.5-16.0); LYMPHOCYTES # (AUTO) 4.4 10^3/uL (1.0-4.0); LYMPHOCYTES % (AUTO) 36 % (12-44); MEAN CORPUSCULAR HEMOGLOBIN 29 pg (25-34); MEAN CORPUSCULAR HGB CONC 34 g/dL (32-36); MEAN CORPUSCULAR VOLUME 86 fL (80-99); MEAN PLATELET VOLUME 9.5 fL (9.0-12.2); MONOCYTES # (AUTO) 0.9 10^3/uL (0.0-1.0); MONOCYTES % (AUTO) 8 % (0-12); NEUTROPHILS # (AUTO) 6.6 10^3/uL (1.8-7.8); NEUTROPHILS % (AUTO) 54 % (42-75); PLATELET COUNT 298 10^3/uL (130-400); WHITE BLOOD COUNT 12.2 10^3/uL (4.3-11.0)
[2022-12-22 18:10] LABS: ALBUMIN 4.3 GM/DL (3.2-4.5); INR 0.9 (0.8-1.4); PROTHROMBIN TIME PATIENT 12.5 SEC (12.2-14.7)
[2022-12-22 18:11] LABS: POTASSIUM 3.4 MMOL/L (3.6-5.0)
[2022-12-22 18:13] LABS: TOTAL PROTEIN 8.3 GM/DL (6.4-8.2)
[2022-12-22 18:15] LABS: BILIRUBIN,TOTAL 0.4 MG/DL (0.1-1.0)
[2022-12-22 18:16] LABS: CREATININE SERUM 0.99 MG/DL (0.60-1.30)
[2022-12-22 18:19] LABS: MAGNESIUM 2.4 MG/DL (1.6-2.4)
--- NOTE | 2022-12-22 18:41 | Diagnostic Imaging Report ---
EXAMINATION: Chest 1 view. HISTORY: Chest pain. COMPARISON: 08/20/2021. FINDINGS: The lung volumes are normal. No focal consolidation is seen. No large pleural effusion or pneumothorax is seen. The cardiomediastinal silhouette is normal in size and contour. No acute osseous abnormality is seen. IMPRESSION: No acute pleuroparenchymal process. Dictated by: Dictated on workstation # [id number]
[2022-12-22] MEDS ORDERED: LACTATED RINGERS 1,000 ML IV ONE (19:00)
[2022-12-22] MEDS ORDERED: ONDANSETRON 4 MG/2 ML (SDV) Z0FRAN IVP ONE (19:00)
[2022-12-22] MEDS ORDERED: PROM25TA14 PO (21:07)
[2022-12-22 21:12] VITALS: BP 116/81
== END 2022-12-22 21:12 | disposition home or self-care (01) ==
LOC: EDUNIT# 17:35 → ER 17:37
DX: R07.89 Other chest pain (principal); R51.9 Headache, unspecified; R11.0 Nausea; R10.10 Upper abdominal pain, unspecified; D72.829 Elevated white blood cell count, unspecified; I10 Essential (primary) hypertension; F17.290 Nicotine dependence, other tobacco product, uncomplicated; Z86.69 Personal history of other diseases of the nervous system and sense organs; Z20.822 Contact with and (suspected) exposure to COVID-19; Z79.899 Other long term (current) drug therapy
CPT/HCPCS: 36415; 71045; 80053; 83735; 83874; 84484; 85025; 85610; 85730; 87636; 93005; 93041

== ENCOUNTER 2023-03-18 13:39 | Emergency (ER) | payer MEDICARE, MEDICAID ==
[~2023-03-18] VITALS: Ht 177.8 cm; Wt 100.7 kg
[2023-03-18] MEDS ORDERED: NS IV 1000 ML 1,000 ML IV STA (14:05)
--- NOTE | 2023-03-18 14:08 | ED Cough/URI ---
General Chief Complaint: Cough/Cold/Flu Symptoms Stated Complaint: FLU-LIKE SYMPTOMS Source: patient Exam Limitations: no limitations (MARIANA GUNN) History of Present Illness Date Seen by Provider: Mar 18, 2023 Time Seen by Provider: 14:06 Initial Comments Patient is a 42-year-old female with a history of chronic fatigue syndrome, fibromyalgia who presents ED with body aches for the past 2 weeks. Patient states her body hurts all over. She reports nausea without any vomiting. She reports diarrhea over the past 2 weeks but states that seemed to improve over the past few days after taking Imodium. She reports near 10-20 episodes daily without any blood or mucus. Denies any cough but reports bilateral ear pain and discomfort. She reports lower abdominal discomfort described as crampy and constant. No urinary symptoms. History of hysterectomy, appendectomy, cholecystectomy. She has not seek any medical care for her symptoms. She has been taken ibuprofen and Tylenol without much improvement. Up-to-date on COVID influenza vaccine. She denies any fever but reports chills, body aches, fatigue and weakness. Denies any chest pain, shortness of breath or cough (MARIANA GUNN) Allergies and Home Medications Allergies Coded Allergies: pregabalin (Verified Adverse Reaction, Intermediate, 12/07/16) Rhabdomyolysis meperidine (Verified Adverse Reaction, Mild, NAUSEA, 12/07/16) morphine (Verified Adverse Reaction, Mild, NAUSEA, 09/13/07) Uncoded Allergies: STEROID PILLS (Allergy, Unknown, 11/15/13) Patient Home Medication List Home Medication List Reviewed: Yes (MARIANA GUNN) Alprazolam (Alprazolam) 1 Mg Tablet, (Reported) Entered as Reported by: JUS MARTINES on 12/07/16 0826 Amitriptyline HCl (Amitriptyline HCl) 150 Mg Tablet, (Reported) Entered as Reported by: BIMAL REY on 12/28/18 0639 Amoxicillin/Potassium Clav (Amox Tr-K Clv 875-125 mg Tab) 875 Mg-125 Mg Tablet, 1 EACH PO BID Prescribed by: ROSEMARIE MCKEON on 03/18/23 1508 Aripiprazole (Abilify) 20 Mg Tablet, 20 MG PO DAILY, (Reported) Entered as Reported by: MARLEY QUINONES on 01/15/21 1819 Cephalexin (Cephalexin) 500 Mg Tablet, 500 MG PO TID Prescribed by: RAFA ALVARENGA on 03/25/22 1256 Cephalexin (Cephalexin) 500 Mg Tablet, 500 MG PO BID Prescribed by: ROSEMARIE MCKEON on 09/29/22 1343 Estradiol (Estradiol Tablet) 2 Mg Tablet, (Reported) Entered as Reported by: JUS MARTINES on 12/07/16 0826 Famotidine (Pepcid) 20 Mg Tablet, 20 MG PO BID, (Reported) Entered as Reported by: MARLEY QUINONES on 01/15/21 181 Gabapentin (Gabapentin) 100 Mg Capsule, (Reported) Entered as Reported by: BIMAL REY on 12/28/18 0639 Lovastatin (Lovastatin) 20 Mg Tablet, (Reported) Entered as Reported by: BIMAL REY on 12/28/18 0639 Methocarbamol (Robaxin-750) 750 Mg Tablet, 750 MG PO Q4H PRN for PAIN-MODERATE (5-7) Prescribed by: RAFA ALVARENGA on 05/18/20 1922 Ondansetron (Ondansetron Odt) 4 Mg Tab.rapdis, 4 MG PO Q6H PRN for NAUSEA/VOMITING Prescribed by: NANCY FLYNN on 08/08/19 1409 Ondansetron (Ondansetron Odt) 4 Mg Tab.rapdis, 4 MG PO Q6H PRN for NAUSEA/VOMITING Prescribed by: NANCY FLYNN on 10/10/21 0717 Paroxetine HCl (Paroxetine HCl) 20 Mg Tablet, (Reported) Entered as Reported by: BIMAL REY on 12/28/18 0639 Promethazine HCl (Promethazine Tablet) 25 Mg Tablet, 25 MG PO Q6H PRN for NAUSEA/VOMITING Prescribed by: NANCY FLYNN on 10/02/20 1352 Promethazine HCl (Promethazine Tablet) 25 Mg Tablet, 25 MG PO Q6H PRN for NAUSEA/VOMITING Prescribed by: ROSEMARIE MCKEON on 09/29/22 1343 Promethazine HCl (Promethazine Tablet) 25 Mg Tablet, 25 MG PO Q6H PRN for NAUSEA/VOMITING Prescribed by: ROSEMARIE MCKEON on 11/25/22 1831 Promethazine HCl (Promethazine Tablet) 25 Mg Tablet, 25 MG PO Q8H PRN for NAUSEA/VOMITING Prescribed by: JENNA MCDANIELS on 12/22/222106 Review of Systems Review of Systems Constitutional: No chills, No diaphoresis, No fever; malaise, weakness EENTM: No hearing loss, No ear pain, No blurred vision Respiratory: No cough, No dyspnea on exertion Cardiovascular: No chest pain Gastrointestinal: abdominal pain, diarrhea, nausea; No vomiting Genitourinary: No decreased output, No discharge Musculoskeletal: No back pain, No joint pain Skin: No change in color, No change in hair/nails (MARIANA GUNN) All Other Systems Reviewed Negative Unless Noted: Yes (MARIANA GUNN) Past Xwygson-Mzxywy-Nnfrol Hx Patient Social History Tobacco Use?: Yes Tobacco type used: Cigars Smoking Status: Current Everyday Smoker Smokeless Tobacco Frequency: Never a User Use of E-Cig and/or Vaping dev: No Use of E-Cig and/or Vaping Raoul: Never a User Substance use?: No Alcohol Use?: No Pt feels they are or have been: No (MARIANA GUNN) Immunizations Up To Date Tetanus Booster (TDap): Unknown First/Initial COVID19 Vaccinat: 10/29 Second COVID19 Vaccination Brad: 10/29 Third COVID19 Vaccination Date: 10/29 (MARIANA GUNN) Seasonal Allergies Seasonal Allergies: Yes (MARIANA GUNN) Past Medical History Surgery/Hospitalization HX: EGD 01/23/[address] 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 Sexually Transmitted Disease: No Genitourinary: No Gastrointestinal: Yes (CHRONIC NAUSEA AND ABDOMINAL PAIN ) Gastroesophageal Reflux, Diverticulosis Musculoskeletal: Yes Fibromyalgia, Chronic Back Pain Endocrine: Yes Diabetes, Non-Insulin dep HEENT: No Cancer: No Psychosocial: Yes Anxiety, Depression Integumentary: No Blood Disorders: No (MARIANA GUNN) Family Medical History Cancer Cataract Family history: Allergy Family history: Arthritis Family history: Asthma Family history: Breast disease Family history: Diabetes mellitus Family history: Hypertension Family history: Osteoporosis Family history: Thyroid disorder Headache Heart disease Hypercholesterolemia Psychotic disorder Seizure disorder No Family History of: Abdominal aortic aneurysm Davie's disease Alcoholism Aphasia Cancer of colon Chest pain Congenital heart disease Congestive heart failure Cystic fibrosis Dementia Dysphagia Family history: Alzheimer's disease Family history: Cardiovascular disease Family history: Coronary thrombosis Family history: Gastrointestinal disease Family history: Glaucoma Hearing loss Hereditary disease History of - anemia History of - disorder History of - respiratory disease History of drug abuse Human immunodeficiency virus (HIV) seropositivity Infertile Kidney disease Malignant neoplasm of lung Myocardial infarction Parkinson's disease Prostate cancer Stroke Tuberculosis Visual impairment Physical Exam Vital Signs - First Documented 03/18/23 03/18/23 13:54 15:12 Temp 36.5 Pulse 88 Resp 17 B/P (MAP) 134/79 (97) Pulse Ox 98 O2 Delivery Room Air (JENNA RAGLAND MD) Capillary Refill : (MARIANA GUNN) Height: 5'11.00" Weight: 220lbs. 0oz. 99.622095mu; 31.00 BMI Method:Stated General Appearance: WD/WN, no apparent distress Eyes: Bilateral Eye Normal Inspection, Bilateral Eye PERRL, Bilateral Eye EOMI HEENT: PERRL/EOMI, normal ENT inspection, pharynx normal, other (Bilateral TMs with erythema and swelling without exudate) Neck: non-tender, full range of motion, supple Respiratory: chest non-tender, lungs clear, normal breath sounds, no respiratory distress, no accessory muscle use Cardiovascular: regular rate, rhythm, no edema, no gallop, no JVD Gastrointestinal: normal bowel sounds, soft, no organomegaly, tenderness (Suprapubic tenderness, left lower quadrant tenderness, right lower quadrant tenderness) Extremities: normal range of motion, non-tender, normal inspection, no pedal edema 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, no motor/sensory deficits, alert, normal mood/affect, oriented x 3 Skin: normal color, warm/dry (MARIANA GUNN) Procedures/Interventions Suture Size: 4-0 (MARIANA GUNN) Progress/Results/Core Measures Suspected Sepsis SIRS Temperature: Pulse: Respiratory Rate: Laboratory Tests 03/18/23 14:16: White Blood Count 10.8 Blood Pressure / Mean: Laboratory Tests 03/18/23 14:16: Creatinine 1.05, Platelet Count 301, Total Bilirubin 0.3 (MARIANA GUNN) Results/Orders Lab Results Laboratory Tests Test 03/18/23 14:00 03/18/23 14:16 Range/Units Influenza Type A (RT-PCR) Not Detected Not Detecte Influenza Type B (RT-PCR) Not Detected Not Detecte SARS-CoV-2 RNA (RT-PCR) Not Detected Not Detecte White Blood Count 10.8 4.3-11.0 10^3/uL Red Blood Count 5.10 3.80-5.11 10^6/uL Hemoglobin 14.9 11.5-16.0 g/dL Hematocrit 44 35-52 % Mean Corpuscular Volume 87 80-99 fL Mean Corpuscular Hemoglobin 29 25-34 pg Mean Corpuscular Hemoglobin Concent 34 32-36 g/dL Red Cell Distribution Width 16.4 H 10.0-14.5 % Platelet Count 301 130-400 10^3/uL Mean Platelet Volume 9.5 9.0-12.2 fL Immature Granulocyte % (Auto) 0 % Neutrophils (%) (Auto) 59 42-75 % Lymphocytes (%) (Auto) 33 12-44 % Monocytes (%) (Auto) 7 0-12 % Eosinophils (%) (Auto) 1 0-10 % Basophils (%) (Auto) 1 0-10 % Neutrophils # (Auto) 6.4 1.8-7.8 10^3/uL Lymphocytes # (Auto) 3.5 1.0-4.0 10^3/uL Monocytes # (Auto) 0.7 0.0-1.0 10^3/uL Eosinophils # (Auto) 0.1 0.0-0.3 10^3/uL Basophils # (Auto) 0.1 0.0-0.1 10^3/uL Immature Granulocyte # (Auto) 0.0 0.0-0.1 10^3/uL Urine Color YELLOW Urine Clarity CLEAR Urine pH 5.5 5-9 Urine Specific [place] 1.015 L 1.016-1.022 Urine Protein NEGATIVE NEGATIVE Urine Glucose (UA) NEGATIVE NEGATIVE Urine Ketones TRACE H NEGATIVE Urine Nitrite NEGATIVE NEGATIVE Urine Bilirubin NEGATIVE NEGATIVE Urine Urobilinogen 1.0 < = 1.0 MG/DL Urine Leukocyte Esterase NEGATIVE NEGATIVE Urine RBC (Auto) TRACE H NEGATIVE Urine RBC 0-2 /HPF Urine WBC 0-2 /HPF Urine Squamous Epithelial Cells >50 H /HPF Urine Crystals PRESENT H /LPF Urine Amorphous Sediment FEW CHAD URATES H /LPF Urine Bacteria FEW H /HPF Urine Casts NONE /LPF Urine Mucus SMALL H /LPF Urine Culture Indicated NO Sodium Level 144 135-145 MMOL/L Potassium Level 3.5 L 3.6-5.0 MMOL/L Chloride Level 105 98-107 MMOL/L Carbon Dioxide Level 29 21-32 MMOL/L Anion Gap 10 5-14 MMOL/L Blood Urea Nitrogen 14 7-18 MG/DL Creatinine 1.05 0.60-1.30 MG/DL Estimat Glomerular Filtration Rate 68 BUN/Creatinine Ratio 13 Glucose Level 73 70-105 MG/DL Calcium Level 10.0 8.5-10.1 MG/DL Corrected Calcium 10.0 8.5-10.1 MG/DL Total Bilirubin 0.3 0.1-1.0 MG/DL Aspartate Amino Transf (AST/SGOT) 46 H 5-34 U/L Alanine Aminotransferase (ALT/SGPT) 79 H 0-55 U/L Alkaline Phosphatase 167 H 40-136 U/L Total Protein 7.8 6.4-8.2 GM/DL Albumin 4.0 3.2-4.5 GM/DL Lipase 28 8-78 U/L Monoscreen NEGATIVE NEGATIVE (JENNA RAGLAND MD) Medications Given in ED Current Medications Medications Dose Ordered Sig/Cali Route Start Time Stop Time Status Last Admin Dose Admin Ketorolac Tromethamine 30 mg ONCE ONCE IVP 03/18/23 14:15 03/18/23 14:16 DC 03/18/23 14:11 30 MG (JENNA RAGLAND MD) Vital Signs/I&O 03/18/23 03/18/23 03/18/23 13:54 13:54 15:12 Temp 36.5 36.5 Pulse 88 81 Resp 17 17 B/P (MAP) 134/79 (97) 134/72 Pulse Ox 98 O2 Delivery Room Air Room Air Room Air (JENNA RAGLAND MD) Vital Signs/I&O Capillary Refill : (MARIANA GUNN) Departure Communication (PCP) Reviewed previous ER visits, H&P, lab testing. History of chronic fatigue syndrome, fibromyalgia. Flulike symptoms for the past 2 weeks. Few episodes of vomiting with diarrhea but the diarrhea seemed improved after taking Imodium. last episode two days ago. No recent antibiotic use or travels. Lower abdominal discomfort. Multiple abdominal surgeries with cholecystectomy, appendectomy, hysterectomy. Patient vital signs stable. She states she feels dehydrated. CBC, CMP, urinalysis, mono, influenza and COVID was ordered. CBC was grossly unremarkable. Chemistry showed slight increase in her liver enzymes and alk phos. AST 46, ALT 79 slightly elevated. she has an history of an elevated alk phos from previous lab work. Patient states she is currently on medication for cholesterol. Denies of any IV drug use. She did receive a liter of fluid. Toradol for improvement of pain. COVID influenza was negative. Lung sounds clear bilateral. Bilateral TMs with erythema and fullness. She does report some ear pain. Oropharynx patent. Urinalysis without strong evidence of infection. No evidence suggesting acute abdomen. She did have some suprapubic tenderness. But she reports pain all over. Due to elevated liver enzymes I recommend recheck in 2 days with your primary care physician. Will discharge with Augmentin for the otitis media. Recommend probiotics. Take food with antibiotics. Recommend staying hydrated. Pain appears to be improving. Tylenol and ibuprofen at home. If any worsening symptoms such as fever, body aches, or flulike symptoms to return back to ED (MARIANA GUNN) Impression Primary Impression: Otitis media Additional Impression: Elevated liver enzymes Disposition: HOME, SELF-CARE Condition: Stable Departure-Patient Inst. Decision time for Depature: 15:07 (MARIANA GUNN) Referrals: JOSE SHORE MD (PCP/Family) Primary Care Physician Patient Instructions: Ear Infections (Otitis Media) in Adults (DC) Add. Discharge Instructions: Recommend taking probiotics with the Augmentin. Eat with food. Follow-up your PCP in 2 to 3 days for reevaluation of lab work All discharge instructions reviewed with patient and/or family. Voiced understanding. Scripts Amoxicillin/Potassium Clav (Amox Tr-K Clv 875-125 mg Tab) 875 Mg-125 Mg Tablet 1 EACH PO BID for 7 Days, #14 TAB Prov: MARIANA GUNN 03/18/23 ATTENDING PHYSICIAN NOTE: I was physically present as attending physician in the emergency department during the care of this patient, but I was not directly involved in the decision making or delivery of care for this patient. (JENNA RAGLAND MD) MARIANA GUNN Mar 18, 2023 14:08 JENNA RAGLAND MD Mar 19, 2023 00:39
[2023-03-18] MEDS ORDERED: KETOROLAC INJ 30 MG/ML VIAL IVP ONE (14:15)
[2023-03-18 14:24] LABS: BASOPHILS # (AUTO) 0.1 10^3/uL (0.0-0.1); BASOPHILS % (AUTO) 1 % (0-10); EOSINOPHILS # (AUTO) 0.1 10^3/uL (0.0-0.3); EOSINOPHILS % (AUTO) 1 % (0-10); HEMATOCRIT 44 % (35-52); HEMOGLOBIN 14.9 g/dL (11.5-16.0); LYMPHOCYTES # (AUTO) 3.5 10^3/uL (1.0-4.0); LYMPHOCYTES % (AUTO) 33 % (12-44); MEAN CORPUSCULAR HEMOGLOBIN 29 pg (25-34); MEAN CORPUSCULAR HGB CONC 34 g/dL (32-36); MEAN CORPUSCULAR VOLUME 87 fL (80-99); MEAN PLATELET VOLUME 9.5 fL (9.0-12.2); MONOCYTES # (AUTO) 0.7 10^3/uL (0.0-1.0); MONOCYTES % (AUTO) 7 % (0-12); NEUTROPHILS # (AUTO) 6.4 10^3/uL (1.8-7.8); NEUTROPHILS % (AUTO) 59 % (42-75); PLATELET COUNT 301 10^3/uL (130-400); WHITE BLOOD COUNT 10.8 10^3/uL (4.3-11.0)
[2023-03-18 14:37] LABS: AMORPHOUS SEDIMENT,UR FEW AMOR URATES /LPF; BACTERIA,URINE FEW /HPF; BILIRUBIN,URINE NEGATIVE (NEGATIVE); CLARITY,URINE CLEAR; COLOR,URINE YELLOW; GLUCOSE, URINE (UA) NEGATIVE (NEGATIVE); KETONES,URINE TRACE (NEGATIVE); LEUKOCYTE ESTERASE ,URINE NEGATIVE (NEGATIVE); NITRITE,URINE NEGATIVE (NEGATIVE); PH,URINE 5.5 (5-9); POTASSIUM 3.5 MMOL/L (3.6-5.0); PROTEIN,URINE NEGATIVE (NEGATIVE); RBC,URINE 0-2 /HPF; SQUAMOUS EPITHELIAL CELL,UR >50 /HPF; WBC,URINE 0-2 /HPF
[2023-03-18 14:39] LABS: TOTAL PROTEIN 7.8 GM/DL (6.4-8.2)
[2023-03-18 14:41] LABS: BILIRUBIN,TOTAL 0.3 MG/DL (0.1-1.0)
[2023-03-18 14:42] LABS: CREATININE SERUM 1.05 MG/DL (0.60-1.30)
[2023-03-18] MEDS ORDERED: fentaNYL INJECTION 100 MCG/2 ML VIAL IVP STA (14:51)
[2023-03-18] MEDS ORDERED: AMOX1TAB12 PO (15:08)
[2023-03-18 15:12] VITALS: BP 134/72
== END 2023-03-18 15:12 | disposition home or self-care (01) ==
LOC: EDUNIT# 13:39 → ER 13:41
DX: H66.93 Otitis media, unspecified, bilateral (principal); R74.01 Elevation of levels of liver transaminase levels; R10.31 Right lower quadrant pain; R10.32 Left lower quadrant pain; R11.2 Nausea with vomiting, unspecified; R19.7 Diarrhea, unspecified; F17.210 Nicotine dependence, cigarettes, uncomplicated; E78.00 Pure hypercholesterolemia, unspecified; Z79.899 Other long term (current) drug therapy; Z87.19 Personal history of other diseases of the digestive system; Z90.49 Acquired absence of other specified parts of digestive tract; Z20.822 Contact with and (suspected) exposure to COVID-19
CPT/HCPCS: 36415; 80053; 81000; 83690; 85025; 86308; 87636

== ENCOUNTER 2023-04-24 17:54 | Emergency (ER) | payer MEDICARE, MEDICAID ==
[~2023-04-24] VITALS: Ht 180 cm; Wt 105.0 kg
[~2023-04-24 17:54] MED LIST changes: +AMOX1TAB12 PO
[2023-04-24] MEDS ORDERED: LACTATED RINGERS 1,000 ML 1,000 ML IV STA (18:24)
[2023-04-24 18:28] LABS: CLARITY,URINE CLEAR; COLOR,URINE YELLOW; PH,URINE 7.5 (5-9); PROTEIN,URINE NEGATIVE (NEGATIVE)
[2023-04-24 18:29] LABS: BACTERIA,URINE LARGE /HPF; BILIRUBIN,URINE NEGATIVE (NEGATIVE); GLUCOSE, URINE (UA) NEGATIVE (NEGATIVE); KETONES,URINE 2+ (NEGATIVE); LEUKOCYTE ESTERASE ,URINE NEGATIVE (NEGATIVE); NITRITE,URINE NEGATIVE (NEGATIVE); RBC,URINE 0-2 /HPF
[2023-04-24] MEDS ORDERED: ONDANSETRON INJECTION 4 MG/2 ML (SDV) IVP ONE (18:30)
[2023-04-24] MEDS ORDERED: PANTOPRAZOLE INJECTION 40 MG VIAL IV ONE (18:30)
--- NOTE | 2023-04-24 18:30 | ED GI ---
General Chief Complaint: Abdominal/GI Problems Stated Complaint: VOMITTING, ABD AND CHEST PAIN Nursing Triage Note: PT STATES ABD/CHEST PAIN AND VOMITING SINCE LAST NIGHT, HEADACHE, DIARRHEA Source of Information: Patient History of Present Illness Date Seen by Provider: Apr 24, 2023 Time Seen by Provider: 18:15 Initial Comments PT ARRIVES VIA POV FROM HOME PT BEGAN GETTING SICK LAST NIGHT/YESTERDAY-SOMETIME AFTER 1700 C/O NAUSEA/VOMITING/DIARRHEA EMESIS X 10, DIARRHEA X 1 C/O MID AND LOWER ABDOMINAL PAIN C/O BURNING IN MID CHEST--STATES IT FEELS LIKE IT IS FROM ALL THE VOMITING NO FEVER SHE HAS NOT EATEN OR DRANK ANYTHING TODAY EXCEPT 1 SIP OF WATER TO TAKE A GABAPENTIN PILL SHE HAS NOT URINATED TODAY, BUT WAS ABLE TO VOID ON ARRIVAL NO KNOWN SICK CONTACTS OR SUSPICIOUS FOODS LMP--S/P HYSTERECTOMY PT HAS HAD PRIOR CHOLECYSTECTOMY, APPENDECTOMY AND HYSTERECTOMY/BILATERAL SALPINGO-OOPHORECTOMY SHE SMOKES CIGARS, DENIES ETOH OR DRUG USE PT TAKES MEDICATION FOR FIBROMYALGIA, CHRONIC FATIGUE SYNDROME AND HTN. SHE HAS ONLY TAKEN 1 GABAPENTIN TODAY, NO OTHER MEDICATIONS SHE DID NOT ATTEMPT TO CONTACT HER PCP TODAY PT HAS HAD COVID VACCINE X 2 PCP: DR. SHORE Allergies and Home Medications Allergies Coded Allergies: pregabalin (Verified Adverse Reaction, Intermediate, 12/07/16) Rhabdomyolysis meperidine (Verified Adverse Reaction, Mild, NAUSEA, 12/07/16) morphine (Verified Adverse Reaction, Mild, NAUSEA, 09/13/07) Uncoded Allergies: STEROID PILLS (Allergy, Unknown, 11/15/13) Patient Home Medication List Alprazolam (Alprazolam) 1 Mg Tablet, (Reported) Entered as Reported by: JUS MARTINES on 12/07/16 0826 Amitriptyline HCl (Amitriptyline HCl) 150 Mg Tablet, (Reported) Entered as Reported by: BIMAL REY on 12/28/18 0639 Amoxicillin/Potassium Clav (Amox Tr-K Clv 875-125 mg Tab) 875 Mg-125 Mg Tablet, 1 EACH PO BID Prescribed by: ROSEMARIE MCKEON on 03/18/23 1508 Aripiprazole (Abilify) 20 Mg Tablet, 20 MG PO DAILY, (Reported) Entered as Reported by: MARLEY QUINONES on 01/15/21 1819 Cephalexin (Cephalexin) 500 Mg Tablet, 500 MG PO TID Prescribed by: RAFA ALVARENGA on 03/25/22 1256 Cephalexin (Cephalexin) 500 Mg Tablet, 500 MG PO BID Prescribed by: ROSEMARIE MCKEON on 09/29/22 1343 Estradiol (Estradiol Tablet) 2 Mg Tablet, (Reported) Entered as Reported by: JUS MARTINES on 12/07/16 0826 Famotidine (Pepcid) 20 Mg Tablet, 20 MG PO BID, (Reported) Entered as Reported by: MARLEY QUINONES on 01/15/21 1819 Gabapentin (Gabapentin) 100 Mg Capsule, (Reported) Entered as Reported by: BIMAL REY on 12/28/18 0639 Lovastatin (Lovastatin) 20 Mg Tablet, (Reported) Entered as Reported by: BIMAL REY on 12/28/18 0639 Methocarbamol (Robaxin-750) 750 Mg Tablet, 750 MG PO Q4H PRN for PAIN-MODERATE (5-7) Prescribed by: RAFA ALVARENGA on 05/18/20 1922 Ondansetron (Ondansetron Odt) 4 Mg Tab.rapdis, 4 MG PO Q6H PRN for NAUSEA/VOMITING Prescribed by: NANCY FLYNN on 08/08/19 1409 Ondansetron (Ondansetron Odt) 4 Mg Tab.rapdis, 4 MG PO Q6H PRN for NAUS EA/VOMITING Prescribed by: NANCY FLYNN on 10/10/21 0717 Paroxetine HCl (Paroxetine HCl) 20 Mg Tablet, (Reported) Entered as Reported by: BIMAL REY on 12/28/18 0639 Promethazine HCl (Promethazine Tablet) 25 Mg Tablet, 25 MG PO Q6H PRN for NAUSEA/VOMITING Prescribed by: NANCY FLYNN on 10/02/20 1352 Promethazine HCl (Promethazine Tablet) 25 Mg Tablet, 25 MG PO Q6H PRN for NAUSEA/VOMITING Prescribed by: ROSEMARIE MCKEON on 09/29/22 1343 Promethazine HCl (Promethazine Tablet) 25 Mg Tablet, 25 MG PO Q6H PRN for NAUSEA/VOMITING Prescribed by: ROSEMARIE MCKEON on 11/25/22 1831 Promethazine HCl (Promethazine Tablet) 25 Mg Tablet, 25 MG PO Q8H PRN for NAUSEA/VOMITING Prescribed by: JENNA MCDANIELS on 12/22/222106 Review of Systems Review of Systems Constitutional: no symptoms reported Respiratory: No Symptoms Reported Cardiovascular: See HPI Gastrointestinal: See HPI Genitourinary: See HPI Musculoskeletal: no symptoms reported Skin: no symptoms reported Psychiatric/Neurological: No Symptoms Reported Endocrine: No Symptoms Reported Hematologic/Lymphatic: No Symptoms Reported Past Ghknhon-Ahudts-Lgwcok Hx Patient Social History Tobacco Use?: Yes Tobacco type used: Cigars Smoking Status: Current Everyday Smoker Substance use?: No Additional substance use comme: DENIES BUT UDS +F OR THC Alcohol Use?: No Immunizations Up To Date Tetanus Booster (TDap): Unknown First/Initial COVID19 Vaccinat: 10/29 Second COVID19 Vaccination Brad: 10/29 Third COVID19 Vaccination Date: 10/29 Seasonal Allergies Seasonal Allergies: Yes Past Medical History Surgery/Hospitalization HX: EGD 01/23/[address] 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 Sexually Transmitted Disease: No Genitourinary: No Gastrointestinal: Yes (CHRONIC NAUSEA AND ABDOMINAL PAIN ) Gastroesophageal Reflux, Diverticulosis, Gall Bladder Disease Musculoskeletal: Yes (CHRONIC FATIGUE SYNDROME) Fibromyalgia, Chronic Back Pain Endocrine: Yes (OBESITY) Diabetes, Non-Insulin dep HEENT: No Cancer: No Psychosocial: Yes Anxiety, Depression Integumentary: No Blood Disorders: No Family Medical History Cancer Cataract Family history: Allergy Family history: Arthritis Family history: Asthma Family history: Breast disease Family history: Diabetes mellitus Family history: Hypertension Family history: Osteoporosis Family history: Thyroid disorder Headache Heart disease Hypercholesterolemia Psychotic disorder Seizure disorder No Family History of: Abdominal aortic aneurysm Foard's disease Alcoholism Aphasia Cancer of colon Chest pain Congenital heart disease Congestive heart failure Cystic fibrosis Dementia Dysphagia Family history: Alzheimer's disease Family history: Cardiovascular disease Family history: Coronary thrombosis Family history: Gastrointestinal disease Family history: Glaucoma Hearing loss Hereditary disease History of - anemia History of - disorder History of - respiratory disease History of drug abuse Human immunodeficiency virus (HIV) seropositivity Infertile Kidney disease Malignant neoplasm of lung Myocardial infarction Parkinson's disease Prostate cancer Stroke Tuberculosis Visual impairment SOCIAL HISTORY: -SMOKES CIGARS DAILY -ETOH--DENIES USE -DRUGS--DENIES USE, BUT UDS + FOR THC ON 04/24/23 Physical Exam Vital Signs Vital Signs - First Documented 04/24/23 18:12 Temp 37.2 Pulse 85 Resp 20 B/P (MAP) 162/104 (123) Pulse Ox 97 O2 Delivery Room Air Capillary Refill : Less Than 3 Seconds Height/Weight/BMI Height: 5'11.00" Weight: 220lbs. 0oz. 99.852114iy; 32.00 BMI Method:Stated General Appearance: WD/WN, no apparent distress, other (WALKS UPRIGHT AND MOVES WITHOUT DIFFICULTY; DOES NOT APPEAR ILL OR TO BE IN ANY DISCOMFORT OR DISTRESS. 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 ) Skin: normal color (PT IS BLACK) Procedures/Interventions Suture Size: 4-0 Progress/Results/Core Measures Results/Orders Lab Results Laboratory Tests Test 04/24/23 18:12 04/24/23 18:30 04/24/23 18:34 Range/Units Urine Color YELLOW Urine Clarity CLEAR Urine pH 7.5 5-9 Urine Specific [place] 1.015 L 1.016-1.022 Urine Protein NEGATIVE NEGATIVE Urine Glucose (UA) NEGATIVE NEGATIVE Urine Ketones 2+ H NEGATIVE Urine Nitrite NEGATIVE NEGATIVE Urine Bilirubin NEGATIVE NEGATIVE Urine Urobilinogen 0.2 < = 1.0 MG/DL Urine Leukocyte Esterase NEGATIVE NEGATIVE Urine RBC (Auto) TRACE-I H NEGATIVE Urine RBC 0-2 /HPF Urine WBC NONE /HPF Urine Squamous Epithelial Cells 5-10 /HPF Urine Crystals NONE /LPF Urine Bacteria LARGE H /HPF Urine Casts NONE /LPF Urine Mucus NEGATIVE /LPF Urine Culture Indicated NO Urine Opiates Screen NEGATIVE NEGATIVE Urine Oxycodone Screen NEGATIVE NEGATIVE Urine Methadone Screen NEGATIVE NEGATIVE Urine Propoxyphene Screen NEGATIVE NEGATIVE Urine Barbiturates Screen NEGATIVE NEGATIVE Ur Tricyclic Antidepressants Screen POSITIVE H NEGATIVE Urine Phencyclidine Screen NEGATIVE NEGATIVE Urine Amphetamines Screen NEGATIVE NEGATIVE Urine Methamphetamines Screen NEGATIVE NEGATIVE Urine Benzodiazepines Screen POSITIVE H NEGATIVE Urine Cocaine Screen NEGATIVE NEGATIVE Urine Cannabinoids Screen POSITIVE H NEGATIVE White Blood Count 8.7 4.3-11.0 10^3/uL Red Blood Count 5.22 H 3.80-5.11 10^6/uL Hemoglobin 15.1 11.5-16.0 g/dL Hematocrit 45 35-52 % Mean Corpuscular Volume 85 80-99 fL Mean Corpuscular Hemoglobin 29 25-34 pg Mean Corpuscular Hemoglobin Concent 34 32-36 g/dL Red Cell Distribution Width 16.9 H 10.0-14.5 % Platelet Count 403 H 130-400 10^3/uL Mean Platelet Volume 10.7 9.0-12.2 fL Immature Granulocyte % (Auto) 0 % Neutrophils (%) (Auto) 63 42-75 % Lymphocytes (%) (Auto) 27 12-44 % Monocytes (%) (Auto) 8 0-12 % Eosinophils (%) (Auto) 1 0-10 % Basophils (%) (Auto) 1 0-10 % Neutrophils # (Auto) 5.4 1.8-7.8 10^3/uL Lymphocytes # (Auto) 2.4 1.0-4.0 10^3/uL Monocytes # (Auto) 0.7 0.0-1.0 10^3/uL Eosinophils # (Auto) 0.1 0.0-0.3 10^3/uL Basophils # (Auto) 0.1 0.0-0.1 10^3/uL Immature Granulocyte # (Auto) 0.0 0.0-0.1 10^3/uL Sodium Level 136 135-145 MMOL/L Potassium Level 4.0 3.6-5.0 MMOL/L Chloride Level 100 98-107 MMOL/L Carbon Dioxide Level 22 21-32 MMOL/L Anion Gap 14 5-14 MMOL/L Blood Urea Nitrogen 11 7-18 MG/DL Creatinine 0.78 0.60-1.30 MG/DL Estimat Glomerular Filtration Rate 97 BUN/Creatinine Ratio 14 Glucose Level 75 70-105 MG/DL Calcium Level 9.9 8.5-10.1 MG/DL Corrected Calcium 9.8 8.5-10.1 MG/DL Magnesium Level 2.0 1.6-2.4 MG/DL Total Bilirubin 0.7 0.1-1.0 MG/DL Aspartate Amino Transf (AST/SGOT) 26 5-34 U/L Alanine Aminotransferase (ALT/SGPT) 32 0-55 U/L Alkaline Phosphatase 167 H 40-136 U/L Troponin I 0.029 H <0.028 NG/ML Total Protein 8.6 H 6.4-8.2 GM/DL Albumin 4.1 3.2-4.5 GM/DL Amylase Level 90 25-125 U/L Lipase 5 L 8-78 U/L Serum Test, Qualitative NEGATIVE NEGATIVE Serum Alcohol < 10 <10 MG/DL Influenza Type A (RT-PCR) Not Detected Not Detecte Influenza Type B (RT-PCR) Not Detected Not Detecte SARS-CoV-2 RNA (RT-PCR) Not Detected Not Detecte My Orders Orders - SANAM FRANK DO Ed Iv/Invasive Line Start (04/24/23 18:13) Ekg Tracing (04/24/23 18:13) Monitor-Rhythm Ecg Trace Only (04/24/23 18:13) Alcohol (04/24/23 18:13) Amylase (04/24/23 18:13) Cbc With Automated Diff (04/24/23 18:13) Comprehensive Metabolic Panel (04/24/23 18:13) Drug Screen Stat (Urine) (04/24/23 18:13) Lipase (04/24/23 18:13) Magnesium (04/24/23 18:13) Ua Culture If Indicated (04/24/23 18:13) Troponin I Nicole (04/24/23 18:13) Hcg,Qualitative Serum (04/24/23 18:13) Covid 19 Inhouse Test (04/24/23 18:24) Ondansetron Injection (Ondansetron Inj (04/24/23 18:30) Lactated Ringers 1,000 Ml (Lactated Ring (04/24/23 18:24) Ed Iv/Invasive Line Start (04/24/23 18:24) Influenza A And B By Pcr (04/24/23 18:24) Pantoprazole Injection (Pantoprazole Inj (04/24/23 18:30) Ct Abdomen/Pelvis W (04/24/23 19:21) Iohexol Injection (Omnipaque 350 Mg/Ml 1 (04/24/23 19:30) Ns (Ivpb) 100 Ml (Sodium Chloride 0.9% 1 (04/24/23 19:30) Hydralazine Injection (Hydralazine Injec (04/24/23 20:15) Medications Given in ED Current Medications Medications Dose Ordered Sig/Cali Route Start Time Stop Time Status Last Admin Dose Admin Iohexol 100 ml ONCE ONCE IV 04/24/23 19:30 04/24/23 19:31 DC 04/24/23 19:39 80 ML Ondansetron HCl 4 mg ONCE ONCE IVP 04/24/23 18:30 04/24/23 18:31 DC 04/24/23 18:46 4 MG Pantoprazole 40 mg ONCE ONCE IV 04/24/23 18:30 04/24/23 18:31 DC 04/24/23 18:48 40 MG Sodium Chloride 100 ml ONCE ONCE IV 04/24/23 19:30 04/24/23 19:31 DC 04/24/23 19:39 80 ML Vital Signs/I&O 04/24/23 18:12 Temp 37.2 Pulse 85 Resp 20 B/P (MAP) 162/104 (123) Pulse Ox 97 O2 Delivery Room Air Blood Pressure Mean: 123 Progress Progress Note : Progress Note PPE WORN VITALS ON ARRIVAL: TEMP 37.2=99.0, HR 85, RR 20, BP 162/104\\ GIVEN: -IV FLUIDS -ZOFRAN -PROTONIX -HYDRALAZINE LABS: -CBC NORMAL -CMP NORMAL -MG -TROPONIN 0.29 -AMYLASE/LIPASE NORMAL -UA LARGE BACTERIA, NO WBC, NO LEUKOCYTES, NO NITRITES, 2+ KETONES -COVID/FLU NEGATIVE EKG SYMPTOMS IMPROVED WITH MEDICATIONS--NAUSEA AND PAIN RESOLVED WITH ZOFRAN AND PROTONIX ONLY C/O HEADACHE--STATES IT IS FROM HER BLOOD PRESSURE BEING TOO HIGH--HYDRALAZINE GIVEN. Initial ECG Impression Date: Apr 24, 2023 Initial ECG Impression Time: 18:39 Initial ECG Rate: 78 Initial ECG Rhythm: Normal Sinus Initial ECG Intervals: Normal Initial ECG Comparisson: Unchanged Comment INTERPRETED BY ME Diagnostic Imaging Comments CT ABDOMEN/PELVIS--PER RADIOLOGIST REPORT AT 1999 FINDINGS: Lung bases demonstrate no pneumonia or edema. There is no pleural or pericardial fluid. The liver demonstrates no focal intrahepatic abnormality. The gallbladder surgically absent. There is no biliary dilatation. The portal veins are patent. The pancreas is normal. The spleen is unremarkable. There is no adrenal mass. Kidneys enhance normally and are nonobstructed. The stomach is fluid-filled without gastric wall thickening. There is no abnormal small or large bowel dilation or evidence of bowel thickening. There are surgical changes of a prior appendectomy. A few diverticula but no findings of diverticulitis. Urinary bladder unremarkable. Patient is status post hysterectomy. There is no pelvic free fluid. There is no free air or abscess. There is no abdominal or pelvic adenopathy. Aorta is normal in caliber. There is no acute osseous abnormality. IMPRESSION: 1. No CT findings of an acute inflammatory or obstructive process within the abdomen or pelvis. 2. Prior cholecystectomy, appendectomy and hysterectomy. 3. No evidence of bowel obstruction. 4. No free fluid. Reviewed: Reviewed by Me Departure Impression Primary Impression: Gastroenteritis Additional Impressions: HTN (hypertension) Marijuana use Disposition: HOME, SELF-CARE Condition: Improved Departure-Patient Inst. Decision time for Depature: 20:07 Referrals: JOSE SHORE MD (PCP/Family) Primary Care Physician Patient Instructions: Cannabis use disorder, [id number], High Blood Pressure (DC) Add. Discharge Instructions: CLEAR LIQUIDS--WATER, BROTH, JELLO, GATORADE BRATS DIET--BANANAS, RICE, APPLESAUCE, TOAST, SALTINES NO MARIJUANA CONTINUE YOUR REGULAR MEDICATIONS PRESCRIBED FOLLOW UP WITH YOUR DR IN 2-3 DAYS IF NO BETTER, RETURN TO ER IF WORSE All discharge instructions reviewed with patient and/or family. Voiced understanding. Scripts Pantoprazole Sodium (Protonix) 40 Mg Tablet.dr 40 MG PO DAILY, #15 TAB Prov: SANAM FRANK DO 04/24/23 Ondansetron (Ondansetron Odt) 8 Mg Tab.rapdis 8 MG PO Q6H, #10 TAB Prov: SANAM FRANK DO 04/24/23 SANAM FRANK DO Apr 24, 2023 18:30
[2023-04-24 18:32] LABS: AMPHETAMINE SCREEN, URINE NEGATIVE (NEGATIVE); BARBITURATE SCREEN URINE NEGATIVE (NEGATIVE); BENZODIAZEPINES SCREEN URINE POSITIVE (NEGATIVE); CANNABINOID SCREEN, URINE POSITIVE (NEGATIVE); COCAINE SCREEN URINE NEGATIVE (NEGATIVE); METHADONE STAT NEGATIVE (NEGATIVE); OPIATE SCREEN URINE NEGATIVE (NEGATIVE); OXYCODONE STAT NEGATIVE (NEGATIVE); PROPOXYPHENE STAT NEGATIVE (NEGATIVE); TRICYCLIC ANTIDEPRESSANTS SCRE POSITIVE (NEGATIVE)
[2023-04-24 18:53] LABS: ALBUMIN 4.1 GM/DL (3.2-4.5); CHLORIDE 100 MMOL/L (98-107); SODIUM 136 MMOL/L (135-145)
[2023-04-24 18:54] LABS: AMYLASE 90 U/L (25-125); BASOPHILS # (AUTO) 0.1 10^3/uL (0.0-0.1); BASOPHILS % (AUTO) 1 % (0-10); EOSINOPHILS # (AUTO) 0.1 10^3/uL (0.0-0.3); EOSINOPHILS % (AUTO) 1 % (0-10); HEMATOCRIT 45 % (35-52); HEMOGLOBIN 15.1 g/dL (11.5-16.0); LYMPHOCYTES # (AUTO) 2.4 10^3/uL (1.0-4.0); LYMPHOCYTES % (AUTO) 27 % (12-44); MEAN CORPUSCULAR HEMOGLOBIN 29 pg (25-34); MEAN CORPUSCULAR HGB CONC 34 g/dL (32-36); MEAN CORPUSCULAR VOLUME 85 fL (80-99); MEAN PLATELET VOLUME 10.7 fL (9.0-12.2); MONOCYTES # (AUTO) 0.7 10^3/uL (0.0-1.0); MONOCYTES % (AUTO) 8 % (0-12); NEUTROPHILS # (AUTO) 5.4 10^3/uL (1.8-7.8); NEUTROPHILS % (AUTO) 63 % (42-75); PLATELET COUNT 403 10^3/uL (130-400); WHITE BLOOD COUNT 8.7 10^3/uL (4.3-11.0)
[2023-04-24 18:55] LABS: CALCIUM 9.9 MG/DL (8.5-10.1)
[2023-04-24 18:56] LABS: GLUCOSE 75 MG/DL (70-105); TOTAL PROTEIN 8.6 GM/DL (6.4-8.2)
[2023-04-24 18:57] LABS: CARBON DIOXIDE 22 MMOL/L (21-32)
[2023-04-24 18:58] LABS: BILIRUBIN,TOTAL 0.7 MG/DL (0.1-1.0)
[2023-04-24 18:59] LABS: CREATININE SERUM 0.78 MG/DL (0.60-1.30); GFR ESTIMATED 97
[2023-04-24 19:01] LABS: BUN/CREATININE RATIO 14
[2023-04-24 19:02] LABS: ALANINE AMINOTRANSFERASE 32 U/L (0-55)
[2023-04-24 19:03] LABS: LIPASE 5 U/L (8-78)
[2023-04-24] MEDS ORDERED: NS 100 ML (IVPB) BAG IV ONE ×2 (19:30)
[2023-04-24] MEDS ORDERED: IOHEXOL 350 MG/ML 100 ML (OMNIPAQUE 350) VIAL IV ONE ×2 (19:30)
[2023-04-24 19:41] LABS: ALKALINE PHOSPHATASE 167 U/L (40-136)
--- NOTE | 2023-04-24 19:52 | Diagnostic Imaging Report ---
PROCEDURE: CT abdomen and pelvis with contrast. TECHNIQUE: Multiple contiguous axial images were obtained through the abdomen and pelvis after administration of intravenous contrast. Auto Exposure Controls were utilized during the CT exam to meet ALARA standards for radiation dose reduction. All CT scans use one or more of the following dose optimizing techniques: automated exposure control, MA and/or KvP adjustment based on patient size and exam type or iterative reconstruction. INDICATION: Abdominal pain. Nausea and vomiting. COMPARISON: 08/20/2021. FINDINGS: Lung bases demonstrate no pneumonia or edema. There is no pleural or pericardial fluid. The liver demonstrates no focal intrahepatic abnormality. The gallbladder surgically absent. There is no biliary dilatation. The portal veins are patent. The pancreas is normal. The spleen is unremarkable. There is no adrenal mass. Kidneys enhance normally and are nonobstructed. The stomach is fluid-filled without gastric wall thickening. There is no abnormal small or large bowel dilation or evidence of bowel thickening. There are surgical changes of a prior appendectomy. A few diverticula but no findings of diverticulitis. Urinary bladder unremarkable. Patient is status post hysterectomy. There is no pelvic free fluid. There is no free air or abscess. There is no abdominal or pelvic adenopathy. Aorta is normal in caliber. There is no acute osseous abnormality. IMPRESSION: 1. No CT findings of an acute inflammatory or obstructive process within the abdomen or pelvis. 2. Prior cholecystectomy, appendectomy and hysterectomy. 3. No evidence of bowel obstruction. 4. No free fluid. Dictated by: Dictated on workstation # [id number]
[2023-04-24] MEDS ORDERED: PANT40TA2 PO (20:09)
[2023-04-24] MEDS ORDERED: ONDA8TAB13 PO (20:09)
[2023-04-24] MEDS ORDERED: hydrALAZINE INJECTION 20 MG/ML VIAL IV ONE (20:15)
[2023-04-24 20:42] VITALS: BP 155/98
== END 2023-04-24 20:42 | disposition home or self-care (01) ==
LOC: EDUNIT# 17:54 → ER 17:58
DX: K52.9 Noninfective gastroenteritis and colitis, unspecified (principal); I10 Essential (primary) hypertension; F12.90 Cannabis use, unspecified, uncomplicated; F17.210 Nicotine dependence, cigarettes, uncomplicated; E66.9 Obesity, unspecified; Z68.32 Body mass index [BMI] 32.0-32.9, adult; Z90.49 Acquired absence of other specified parts of digestive tract; Z20.822 Contact with and (suspected) exposure to COVID-19
CPT/HCPCS: 74177; 80053; 80306; 81000; 82150; 83690; 83735; 84484; 84703; 85025; 87636; 93005; 93041; 99284; G0480; 36415; 80320

== ENCOUNTER 2023-04-25 13:40 | Emergency (ER) | payer MEDICARE, MEDICAID ==
[~2023-04-25 13:40] MED LIST changes: +ONDA8TAB13 PO; +PANT40TA2 PO
[2023-04-25] MEDS ORDERED: LABETALOL 5 mg/ml 4 ML SINGLE DOSE SYRINGE IV ONE (14:00)
[2023-04-25] MEDS ORDERED: NS IV 1000 ML 1,000 ML IV SCH (14:00)
[2023-04-25] MEDS ORDERED: ONDANSETRON INJECTION 4 MG/2 ML (SDV) IVP ONE (14:00)
--- NOTE | 2023-04-25 14:11 | ED Headache ---
General Chief Complaint: Head/Cervical Problems Stated Complaint: HEADACHE Nursing Triage Note: PT ARRIVED PER EMS, PT CO OF [employer], RATES PAIN 05/20, PT STATES WAS SEEN IN ED LAST PM FOR GASTROENTERITIS. Source: patient Exam Limitations: no limitations History of Present Illness Date Seen by Provider: Apr 25, 2023 Time Seen by Provider: 13:43 Initial Comments 42-year-old female presents to the ER via EMS with complaint of a headache, hypertension, and shaking since Friday. She states that she was seen here yesterday for viral gastroenteritis. She was also having vomiting and diarrhea, states she has not had any vomiting or diarrhea today. She is also complaining of a mild sore throat. She has a past medical history of hypertension and migraines. She states that this headache feels like a hypertension headache, states the pain is in her neck. Denies fevers, chest pain, shortness of air, abdominal pain, nausea, vomiting, diarrhea. She reports she took her blood pressure medication this morning. Allergies and Home Medications Allergies Coded Allergies: pregabalin (Verified Adverse Reaction, Intermediate, 12/07/16) Rhabdomyolysis meperidine (Verified Adverse Reaction, Mild, NAUSEA, 12/07/16) morphine (Verified Adverse Reaction, Mild, NAUSEA, 09/13/07) Uncoded Allergies: STEROID PILLS (Allergy, Unknown, 11/15/13) Patient Home Medication List Home Medication List Reviewed: Yes Alprazolam (Alprazolam) 1 Mg Tablet, (Reported) Entered as Reported by: JUS MARTINES on 12/07/16 0826 Amitriptyline HCl (Amitriptyline HCl) 150 Mg Tablet, (Reported) Entered as Reported by: BIMAL REY on 12/28/18 0639 Amoxicillin/Potassium Clav (Amox Tr-K Clv 875-125 mg Tab) 875 Mg-125 Mg Tablet, 1 EACH PO BID Prescribed by: ROSEMARIE MCKEON on 03/18/23 1508 Aripiprazole (Abilify) 20 Mg Tablet, 20 MG PO DAILY, (Reported) Entered as Reported by: MARLEY QUINONES on 01/15/21 1819 Cephalexin (Cephalexin) 500 Mg Tablet, 500 MG PO TID Prescribed by: RAFA ALVARENGA on 03/25/22 1256 Cephalexin (Cephalexin) 500 Mg Tablet, 500 MG PO BID Prescribed by: ROSEMARIE MCKEON on 09/29/22 1343 Estradiol (Estradiol Tablet) 2 Mg Tablet, (Reported) Entered as Reported by: JUS MARTINES on 12/07/16 0826 Famotidine (Pepcid) 20 Mg Tablet, 20 MG PO BID, (Reported) Entered as Reported by: MARLEY QUINONES on 01/15/21 1819 Gabapentin (Gabapentin) 100 Mg Capsule, (Reported) Entered as Reported by: BIMAL REY on 12/28/18 0639 Lovastatin (Lovastatin) 20 Mg Tablet, (Reported) Entered as Reported by: BIMAL REY on 12/28/18 0639 Methocarbamol (Robaxin-750) 750 Mg Tablet, 750 MG PO Q4H PRN for PAIN-MODERATE (5-7) Prescribed by: RAFA ALVARENGA on 05/18/201921 Ondansetron (Ondansetron Odt) 4 Mg Tab.rapdis, 4 MG PO Q6H PRN for NAUSEA/VOMITING Prescribed by: NANCY FLYNN on 08/08/19 1409 Ondansetron (Ondansetron Odt) 4 Mg Tab.rapdis, 4 MG PO Q6H PRN for NAUSEA/VOMITING Prescribed by: NANCY FLYNN on 10/10/21 0717 Ondansetron (Ondansetron Odt) 8 Mg Tab.rapdis, 8 MG PO Q6H Prescribed by: SANAM FRANK on 04/24/232008 Pantoprazole Sodium (Protonix) 40 Mg Tablet.dr, 40 MG PO DAILY Prescribed by: SANAM FRANK on 04/24/232008 Paroxetine HCl (Paroxetine HCl) 20 Mg Tablet, (Reported) Entered as Reported by: BIMAL REY on 12/28/18 0639 Promethazine HCl (Promethazine Tablet) 25 Mg Tablet, 25 MG PO Q6H PRN for NAUSEA/VOMITING Prescribed by: NANCY FLYNN on 10/02/20 1352 Promethazine HCl (Promethazine Tablet) 25 Mg Tablet, 25 MG PO Q6H PRN for NAUSEA/VOMITING Prescribed by: ROSEMARIE MCKEON on 09/29/22 1343 Promethazine HCl (Promethazine Tablet) 25 Mg Tablet, 25 MG PO Q6H PRN for NAUSEA/VOMITING Prescribed by: ROSEMARIE MCKEON on 11/25/22 1831 Promethazine HCl (Promethazine Tablet) 25 Mg Tablet, 25 MG PO Q8H PRN for NAUSEA/VOMITING Prescribed by: JENNA MCDANIELS on 12/22/222106 Review of Systems Review of Systems Constitutional: see HPI Past Vywgyrj-Oidxji-Rzwgzv Hx Patient Social History Tobacco Use?: No Substance use?: Yes Substance type: Marijuana Additional substance use comme: GUMMIES Substance frequency: Couple times a week Alcohol Use?: No Immunizations Up To Date Tetanus Booster (TDap): Unknown First/Initial COVID19 Vaccinat: 10/29 Second COVID19 Vaccination Brad: 10/29 Third COVID19 Vaccination Date: 10/29 Seasonal Allergies Seasonal Allergies: Yes Past Medical History Surgery/Hospitalization HX: EGD 01/23/[address] LOPEZ--NO SIGNFICANT FINDINGS, HYSTERECTOMY, GALL BLADDER Surgeries: Yes (TEAR REPAIR AFTER VAG , DX LAP FOR ENDOMETRIOSIS/OVARIAN CYSTS,EGD) Abdominal, Appendectomy, Gallbladder, Hysterectomy, Oophorectomy Respiratory: No Cardiac: Yes (SYNCOPE DUE TO ANXIETY/STRESSFUL SITUATIONS) High Cholesterol, Hypertension, Syncope Neurological: Yes Headaches /Migraines 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 Disorders: Yes Female 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 Disorders: 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, Ovarian Cyst [employer] History: Hysterectomy Sexually Transmitted Disease: No Genitourinary: No Gastrointestinal: Yes (CHRONIC NAUSEA AND ABDOMINAL PAIN ) Gastroesophageal Reflux, Diverticulosis, Gall Bladder Disease Musculoskeletal: Yes (CHRONIC FATIGUE SYNDROME) Fibromyalgia, Chronic Back Pain Endocrine: Yes (OBESITY) Diabetes, Non-Insulin dep HEENT: No Cancer: No Psychosocial: Yes Anxiety, Depression Integumentary: No Blood Disorders: No Family Medical History Cancer Cataract Family history: Allergy Family history: Arthritis Family history: Asthma Family history: Breast disease Family history: Diabetes mellitus Family history: Hypertension Family history: Osteoporosis Family history: Thyroid disorder Headache Heart disease Hypercholesterolemia Psychotic disorder Seizure disorder No Family History of: Abdominal aortic aneurysm Lenin's disease Alcoholism Aphasia Cancer of colon Chest pain Congenital heart disease Congestive heart failure Cystic fibrosis Dementia Dysphagia Family history: Alzheimer's disease Family history: Cardiovascular disease Family history: Coronary thrombosis Family history: Gastrointestinal disease Family history: Glaucoma Hearing loss Hereditary disease History of - anemia History of - disorder History of - respiratory disease History of drug abuse Human immunodeficiency virus (HIV) seropositivity Infertile Kidney disease Malignant neoplasm of lung Myocardial infarction Parkinson's disease Prostate cancer Stroke Tuberculosis Visual impairment SOCIAL HISTORY: -SMOKES CIGARS DAILY -ETOH--DENIES USE -DRUGS--DENIES USE, BUT UDS + FOR THC ON 04/24/23 Physical Exam Vital Signs Vital Signs - First Documented 04/25/23 13:40 Temp 36.1 Pulse 96 Resp 18 B/P (MAP) 178/99 (125) Pulse Ox 100 Capillary Refill : Less Than 3 Seconds Height, Weight, BMI Height: 5'11.00" Weight: 220lbs. 0oz. 99.212235rs; 32.00 BMI Method:Stated General Appearance: WD/WN, no apparent distress HEENT: PERRL/EOMI, TMs normal, pharyngeal erythema; No tonsillar exudate Neck: supple, normal inspection Cardiovascular: regular rate, rhythm Respiratory: lungs clear, normal breath sounds, no respiratory distress, no accessory muscle use Extremities: normal range of motion, normal inspection Psychiatric: alert, oriented x 3 Crainal Nerves: normal hearing, normal speech, PERRL Motor/Sensory: no motor deficit, no sensory deficit Skin: normal color, warm/dry Procedures/Interventions Suture Size: 4-0 Progress/Results/Core Measures Results/Orders Lab Results Laboratory Tests Test 04/25/23 13:44 04/25/23 14:50 Range/Units White Blood Count 12.1 H 4.3-11.0 10^3/uL Red Blood Count 5.57 H 3.80-5.11 10^6/uL Hemoglobin 16.1 H 11.5-16.0 g/dL Hematocrit 48 35-52 % Mean Corpuscular Volume 86 80-99 fL Mean Corpuscular Hemoglobin 29 25-34 pg Mean Corpuscular Hemoglobin Concent 34 32-36 g/dL Red Cell Distribution Width 17.4 H 10.0-14.5 % Platelet Count 344 130-400 10^3/uL Mean Platelet Volume 9.7 9.0-12.2 fL Immature Granulocyte % (Auto) 0 % Neutrophils (%) (Auto) 65 42-75 % Lymphocytes (%) (Auto) 25 12-44 % Monocytes (%) (Auto) 8 0-12 % Eosinophils (%) (Auto) 1 0-10 % Basophils (%) (Auto) 1 0-10 % Neutrophils # (Auto) 7.9 H 1.8-7.8 10^3/uL Lymphocytes # (Auto) 3.0 1.0-4.0 10^3/uL Monocytes # (Auto) 1.0 0.0-1.0 10^3/uL Eosinophils # (Auto) 0.1 0.0-0.3 10^3/uL Basophils # (Auto) 0.1 0.0-0.1 10^3/uL Immature Granulocyte # (Auto) 0.1 0.0-0.1 10^3/uL Sodium Level 137 135-145 MMOL/L Potassium Level 3.7 3.6-5.0 MMOL/L Chloride Level 97 L 98-107 MMOL/L Carbon Dioxide Level 21 21-32 MMOL/L Anion Gap 19 H 5-14 MMOL/L Blood Urea Nitrogen 11 7-18 MG/DL Creatinine 0.82 0.60-1.30 MG/DL Estimat Glomerular Filtration Rate 91 BUN/Creatinine Ratio 13 Glucose Level 75 70-105 MG/DL Calcium Level 10.4 H 8.5-10.1 MG/DL Corrected Calcium 10.0 8.5-10.1 MG/DL Magnesium Level 2.0 1.6-2.4 MG/DL Total Bilirubin 0.7 0.1-1.0 MG/DL Aspartate Amino Transf (AST/SGOT) 23 5-34 U/L Alanine Aminotransferase (ALT/SGPT) 30 0-55 U/L Alkaline Phosphatase 177 H 40-136 U/L Total Protein 9.1 H 6.4-8.2 GM/DL Albumin 4.5 3.2-4.5 GM/DL Group A Streptococcus Screen Not Detected NotDetected My Orders Orders - ALMITA SHELTON APRN Labetalol Injection (Sdv) (Labetalol Inj (04/25/23 14:00) Rapid Strep A Screen (04/25/23 13:59) Ed Iv/Invasive Line Start (04/25/23 13:59) Ns Iv 1000 Ml (Ns Iv 1000 Ml) (04/25/23 14:00) Ondansetron Injection (Ondansetron Inj (04/25/23 14:00) Cbc With Automated Diff (04/25/23 13:59) Magnesium (04/25/23 13:59) Ekg Tracing (04/25/23 13:59) Comprehensive Metabolic Panel (04/25/23 13:59) Monitor-Rhythm Ecg Trace Only (04/25/23 13:59) Ed Iv/Invasive Line Start (04/25/23 13:59) Medications Given in ED Current Medications Medications Dose Ordered Sig/Cali Route Start Time Stop Time Status Last Admin Dose Admin Ondansetron HCl 4 mg ONCE ONCE IVP 04/25/23 14:00 04/25/23 14:03 DC 04/25/23 14:33 4 MG Vital Signs/I&O 04/25/23 13:40 Temp 36.1 Pulse 96 Resp 18 B/P (MAP) 178/99 (125) Pulse Ox 100 Blood Pressure Mean: 125 Progress Progress Note : Progress Note Patient seen and evaluated, resting in bed, no acute distress. No visible shaking. Based on exam and symptoms, work-up initiated including CBC, CMP, magnesium, EKG, rapid strep. Labetalol, IV fluids, and Zofran ordered. 1520 Labs reviewed. CBC shows slightly elevated WBC 12.1, RBC slightly elevated 5.57, hemoglobin slightly elevated 16.1. No neutrophil percentage elevation. CMP shows slightly decreased chloride 97, elevated anion gap 19, alkaline phosphatase slightly elevated 177, total protein slightly elevated 9.1. Strep swab negative. Results discussed with patient. Patient reports that her headache has improved now that her blood pressure has decreased. Blood pressure decreased without giving medication. Will discharge after IV fluids are complete. Discharge instructions and return precautions provided. Initial ECG Impression Date: Apr 25, 2023 Initial ECG Impression Time: 14:24 Initial ECG Rate: 83 Initial ECG Rhythm: Normal Sinus Initial ECG Intervals: Normal Initial ECG Impression: Normal Initial ECG Comparisson: Unchanged Departure Impression Primary Impression: Hypertension Qualified Codes: I10 - Essential (primary) hypertension Additional Impression: Headache Qualified Codes: R51.9 - Headache, unspecified Disposition: 01 HOME, SELF-CARE Condition: Stable Departure-Patient Inst. Decision time for Depature: 15:37 Referrals: JOSE LOPEZ MD (PCP/Family) Primary Care Physician Patient Instructions: High blood pressure emergencies Add. Discharge Instructions: Continue taking your medications as prescribed. Follow-up with Dr. Lopez regarding your high blood pressure. Return for severe headache, weakness or numbness on one side your body, or any other new, concerning, or worsening symptoms. All discharge instructions reviewed with patient and/or family. Voiced understanding. Copy Copies To 1: JOSE LOPEZ MD, BRITTANY R APRN Apr 25, 2023 14:11
[2023-04-25 14:18] LABS: ALBUMIN 4.5 GM/DL (3.2-4.5)
[2023-04-25 14:19] LABS: BASOPHILS # (AUTO) 0.1 10^3/uL (0.0-0.1); BASOPHILS % (AUTO) 1 % (0-10); EOSINOPHILS # (AUTO) 0.1 10^3/uL (0.0-0.3); EOSINOPHILS % (AUTO) 1 % (0-10); HEMATOCRIT 48 % (35-52); HEMOGLOBIN 16.1 g/dL (11.5-16.0); LYMPHOCYTES % (AUTO) 25 % (12-44); MEAN CORPUSCULAR HEMOGLOBIN 29 pg (25-34); MEAN CORPUSCULAR HGB CONC 34 g/dL (32-36); MEAN CORPUSCULAR VOLUME 86 fL (80-99); MEAN PLATELET VOLUME 9.7 fL (9.0-12.2); MONOCYTES % (AUTO) 8 % (0-12); NEUTROPHILS # (AUTO) 7.9 10^3/uL (1.8-7.8); NEUTROPHILS % (AUTO) 65 % (42-75); PLATELET COUNT 344 10^3/uL (130-400); POTASSIUM 3.7 MMOL/L (3.6-5.0); WHITE BLOOD COUNT 12.1 10^3/uL (4.3-11.0)
[2023-04-25 14:20] LABS: CALCIUM 10.4 MG/DL (8.5-10.1)
[2023-04-25 14:21] LABS: TOTAL PROTEIN 9.1 GM/DL (6.4-8.2)
[2023-04-25 14:23] LABS: BILIRUBIN,TOTAL 0.7 MG/DL (0.1-1.0)
[2023-04-25 14:25] LABS: CREATININE SERUM 0.82 MG/DL (0.60-1.30)
[2023-04-25 16:02] VITALS: BP 155/95
== END 2023-04-25 16:02 | disposition home or self-care (01) ==
LOC: EDUNIT# 13:40 → ER 13:41
DX: I10 Essential (primary) hypertension (principal); R74.8 Abnormal levels of other serum enzymes; F17.210 Nicotine dependence, cigarettes, uncomplicated; E66.9 Obesity, unspecified; Z68.32 Body mass index [BMI] 32.0-32.9, adult; Z86.69 Personal history of other diseases of the nervous system and sense organs
CPT/HCPCS: 36415; 80053; 83735; 85025; 87430; 93005; 93041